=== PATIENT | male | born 1965 | race Caucasian/White ===

== ENCOUNTER 2023-03-19 09:19 | Outpatient (OUT) | payer BC, SELFPAY | END 2023-03-19 09:20 | LOC: LAB 09:21 | PROVIDERS: PCP Family Medicine; Visit Provider Family Medicine | DX: Z00.00 Encounter for general adult medical examination without abnormal findings (principal); Z12.5 Encounter for screening for malignant neoplasm of prostate | CPT/HCPCS: 36415; 80053; 80061; 83036; 83525; 83880; 84436; 84443; 84481; 84550; 85025; G0103 ==

== ENCOUNTER 2023-03-31 13:55 | Outpatient (OUT) | payer BC, SELFPAY ==
[2023-03-19 09:51] LABS: Basophils Absolute Auto 0.1 10^3/uL (0.0-0.1); Basophils Percent Auto 0.8 % (0.2-2.0); Eosinophils Absolute Auto 0.1 10^3/uL (0.0-0.7); Eosinophils Percent Auto 2.1 % (0.9-7.0); Hematocrit 45.1 % (42.0-54.0); Hemoglobin 15.3 g/dL (14.0-18.0); Immature Granulocytes Abs Auto 0.04 10^3/uL (0.00-0.03); Immature Granulocytes Pct Auto 0.6 % (0.0-0.5); Lymphocytes Absolute Auto 1.7 10^3/uL (1.2-3.8); Mean Corpuscular HGB Conc 33.9 g/dL (29.9-35.2); Mean Corpuscular Volume 85.4 fL (80.0-94.0); Monocytes Absolute Auto 0.5 10^3/uL (0.3-0.8); Monocytes Percent Auto 7.9 % (1.7-12.0); Neutrophils Absolute Auto 4.1 10^3/uL (1.4-6.5); Neutrophils Percent Auto 62.6 % (43.0-75.0); Platelet Count 192 10^3/uL (150-450); Red Blood Count 5.28 10^6/uL (4.70-6.10); Red Cell Distribution Width 13.8 % (11.0-15.0); White Blood Count 6.6 10^3/uL (4.0-11.0)
[2023-03-19 11:13] LABS: Prostate Specific Antigen Scrn 0.93 ng/mL (<=4.00)
[2023-03-19 11:53] LABS: Alanine Aminotransferase 35 U/L (16-63); Albumin Level 3.7 g/dL (3.4-5.0); Alkaline Phosphatase 77 U/L (46-116); Anion Gap 11.6; Aspartate Amino Transferase 22 U/L (15-37); BUN Creatinine Ratio 15.7; Calcium 9.1 mg/dL (8.5-10.1); Carbon Dioxide 26.1 mmol/L (21.0-32.0); Chloride 102 mmol/L (98-107); Chol HDL Ratio 4.1; Cholesterol 188 mg/dL (<=200); Estimated GFR (African America >60 (>=60); Estimated GFR (Non-African Ame >60 (>=60); Free T3 2.79 pg/mL (2.18-3.98); Globulin 3.6 g/dL; Glucose 123 mg/dL (74-106); HDL Cholesterol 46 mg/dL (40-60); LDL Cholesterol Calculated 112.2 mg/dL; Potassium 3.7 mmol/L (3.5-5.1); Sodium 136 mmol/L (136-145); Thyroid Stimulating Hormone 0.673 uIU/mL (0.358-3.740); Total Protein 7.3 g/dL (6.4-8.2); Triglycerides 149 mg/dL (<=150); Uric Acid 6.8 mg/dL (3.5-7.2); VLDL CHOLESTEROL 29.8 mg/dL
[2023-03-19 12:43] LABS: Estimated Average Glucose 114 mg/dL; Glycohemoglobin A1C 5.6 % (4.5-6.2)
[2023-03-20 11:08] LABS: Insulin 49.1 uIU/mL (2.6-24.9)
--- NOTE | 2023-03-31 13:59 | VEIN_ITS ---
Patient: TOM ROY Exam Date: 03/31/2023 : 1965 Gender:M Ordering : DR Benjy Sinha . Admission #: [id number] Family : Order #: [id number] CLICK HERE TO VIEW EXAM RADIOLOGY REPORT PROCEDURE: VC EXT VENOUS REFLUX MARIAELENA LMTD COMPARISON: None. INDICATIONS: Pain due to varicose veins of bilateral legs I83.813 TECHNIQUE: Duplex imaging of the lower extremity to assess the deep and superficial venous system for the presence of deep or superficial venous incompetence and to document the location and severity of disease. The study includes evaluation of the great saphenous vein (GSV), anterior accessory saphenous vein (AASV) and small saphenous vein (SSV). Patient scanned in reverse Trendelenburg and standing. FINDINGS: RIGHT LOWER EXTREMITY: Saphenofemoral Junction Reflux: Yes 8.9mm 3.3 sec GSV: Diam (mm) Reflux/ Time (sec) Proximal Thigh 6.8 Yes 1.9 Mid Thigh 6.0 Yes 2.3 Distal Thigh 6.6 Yes 2.1 Prox Calf 7.4 Yes 1.7 Mid Calf 4.0 Yes 0.3 Saphenopopliteal Junction Reflux: 5.6mm Yes 0.5 SSV: Proximal Calf 5.6 Yes 0.5 Mid Calf 5.0 Yes 0.3 AASV: Not present Thrombi: No acute or chronic thrombus. Compressibility: Normal. Flow: Moderate reflux in popliteal vein. Preforator: Distal medial lower leg 4.2 mm, 3.9s reflux. Mid medial lower leg 5.5 mm, 4.8s reflux. Tech Note: Thigh extention of SSV. Incompetent varicose vein proximal medial lower leg measures 5.8 mm with 0.8s reflux. Mid anterior thigh varicose vein measures 3.6 mm with 0.5s reflux. Varicose vein medial knee measures 4.0 mm with 0.9s reflux. LEFT LOWER EXTREMITY: Saphenofemoral Junction Reflux: Yes 11.9 mm 1.6 sec GSV: Diam (mm) Reflux/Time (sec) Proximal Thigh 9.7 Yes 1.3 Mid Thigh 6.1 Yes 2.8 Distal Thigh 6.4 Yes 2.3 Prox Calf 8.3 Yes 1.6 Mid Calf 4.7 Yes 1.7 Saphenopopliteal Junction Relux: 3.7 mm Yes 0.5 SSV: Proximal Calf 3.5 Yes 0.3 Mid Calf 4.7 Yes 0.6 AASV: Not present Thrombi: No acute or chronic thrombus. Compressibility: Normal. Flow: Moderate deep venous reflux. Product Support Specialist: Distal medial lower leg near wound 7.2 mm, 4.4s reflux. Mid medial lower leg 5.2 mm, 0.9s reflux. Tech Note: Thigh extention of left SSV. Incompetent varicose vein mid medial lower leg measures 5.2 mm with 4.5s reflux. Distal medial lower leg varicose vein measures 4.6 mm with 3.6s reflux. Proximal medial lower leg varicose vein measures 6.7 mm with 2.5s reflux. Varicosity distal anterior lower leg measures 3.6 mm with 0.3s reflux. CONCLUSION: 1. Moderate bilateral great saphenous vein venous insufficiency with dilatation and saphenofemoral junction reflux 2. Mild bilateral small saphenous vein venous insufficiency 3. Bilateral incompetent perforating veins 4. Bilateral incompetent varicose veins Dictated by: Demetrio Jj MD on 03/31/2023 at 15:42 Approved by: Demetrio Jj MD on 03/31/2023 at 15:44
== END 2023-03-31 13:56 | disposition home or self-care (01) ==
PROVIDERS: PCP Family Medicine; Visit Provider Family Medicine
DX: I83.813 Varicose veins of bilateral lower extremities with pain (principal)
CPT/HCPCS: 93970

== ENCOUNTER 2023-12-27 13:26 | Outpatient (OUT) | payer BC, SELFPAY ==
--- NOTE | 2023-12-27 | XR_ITS ---
The [address] [address] Patient Name: TOM ROY MRN: [id number] date: 1965 Sex: M Assigned Patient Location: Current Patient Location: Accession/Order Number: [id number] Exam Date: 12/27/2023 13:28 Report Date: 12/28/2023 07:23 At the request of: JES GRIJALVA Procedure: XR ankle LT min 3V PROCEDURE: XR ankle LT min 3V COMPARISON: None. HISTORY: LEFT ANKLE PAIN FINDINGS: BONES:No acute fracture or dislocation. Bulky enthesopathic spurring of the calcaneus at the Achilles and plantar insertions. Degenerative changes with marginal osteophyte formation. No focal lytic or sclerotic changes SOFT TISSUES:Moderate diffuse soft tissue swelling most significant along the medial ankle EFFUSION:None visible. OTHER: Negative. XR/XR ankle LT min 3V IMPRESSION: Soft tissue swelling No acute bony abnormality Electronically authenticated by: SRAVANTHI LR Date: 12/28/2023 07:23
== END 2023-12-27 13:27 | disposition home or self-care (01) ==
LOC: WC 13:26
PROVIDERS: PCP Family Medicine; Visit Provider Physician Assistant
DX: M25.472 Effusion, left ankle (principal); L97.921 Non-pressure chronic ulcer of unspecified part of left lower leg limited to breakdown of skin
CPT/HCPCS: 11042; 73610; G0463

== ENCOUNTER 2024-01-21 12:35 | Outpatient (OUT) | payer BC, SELFPAY ==
--- NOTE | 2024-01-21 13:00 | CA_ITS ---
The 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 - Normal arterial evaluation of the lower extremities without hemodynamic impairment of the B/L lower extremities at rest. (right VAL 1.05, left VAL 1.09) Electronically Signed On 01-21-2024 17:59:50 EDT by RITU MEADE
== END 2024-01-21 12:36 | disposition home or self-care (01) ==
LOC: CARD 12:36
PROVIDERS: PCP Family Medicine; Visit Provider Physician Assistant
DX: R09.89 Other specified symptoms and signs involving the circulatory and respiratory systems (principal)
CPT/HCPCS: 93923

== ENCOUNTER 2024-01-31 15:45 | Outpatient (OUT) | payer BC, SELFPAY | END 2024-01-31 15:46 | disposition home or self-care (01) | LOC: WC 15:45 | PROVIDERS: PCP Family Medicine; Visit Provider Physician Assistant | DX: L97.921 Non-pressure chronic ulcer of unspecified part of left lower leg limited to breakdown of skin (principal) | CPT/HCPCS: G0463 ==

== ENCOUNTER 2024-04-03 01:18 | Emergency (ER) | payer BC, SELFPAY ==
[2024-04-03 01:22] VITALS: BP 149/97; PULSE 113; TEMP 37.6; O2SAT 96; BMI 41.5
--- NOTE | 2024-04-03 01:42 | ED_ITS ---
HPI HPI - General Adult General Chief complaint: Extremity Problem, Nontraumatic Stated complaint: R SUAREZ PAIN/INJURY Time Seen by Provider: 04/03/24 01:33 Source: patient Mode of arrival: walk-in Limitations: no limitations History of Present Illness HPI narrative: struck his right suarez 2 days ago on the tongue of a trailer. next day developed chills and fever. now has pain, redness of the leg and pain in the right groin. No nausea or vomiting Related Data Home Medications ?Medication ?Instructions ?Recorded ?Confirmed apixaban 5 mg tablet (Eliquis) mg 04/03/24 hydrochlorothiazide 25 mg tablet mg 04/03/24 lisinopril 40 mg tablet mg 04/03/24 metoprolol succinate 25 mg mg PO 04/03/24 tablet,extended release 24 hr pramipexole 0.5 mg tablet mg 04/03/24 Allergies Allergy/AdvReac Type Severity Reaction Status Date / Time No Known Drug Allergies Allergy Verified 04/03/24 01:27 Opioid HPI Opioid Management Most Recent Opioid Data: 2 No Data to Display Review of Systems 2 ROS0 Status of ROS 10 or more systems reviewed and unremark able except as noted in history and below Exam Constitutional Vital Signs, click to edit/add: Last Vital Signs Temp 99.6 F 04/03/24 01:22 Pulse 113 H 04/03/24 01:22 Resp 20 04/03/24 01:22 BP 149/97 H 04/03/24 01:22 Pulse Ox 96 04/03/24 01:22 O2 Del Method Room Air 04/03/24 01:22 Common normals: no apparent distress, average body habitus, oriented x3, no limitations, healthy appearing, alert and well nourished [facility] Common normals: normocephalic and head/scalp atraumatic Eye Common normals: EOMs intact bilaterally and conjunctivae normal Respiratory Common normals: normal respiratory effort, no retractions, no use of accessory muscles and clear to auscultation bilaterally Cardio Common normals: regular rate, regular rhythm, S1 normal heart sound and S2 normal heart sound GI Common normals: Normal to inspection, nondistended, normoactive bowel sounds present, soft to palpation and non-tender Other: tenderness right inner thigh Extremity Extremity image (front): 2 1. erythema, mild swelling and tenderness Neuro Common normals: oriented x3, CN's II-XII intact bilaterally and moves all extremities Psych Appearance: grossly normal Course Vital Signs Vital signs: Vital Signs Temperature 99.6 F 04/03/24 01:22 Pulse Rate 113 H 04/03/24 01:22 Respiratory Rate 04/03/24 01:22 Blood Pressure 149/97 H 04/03/24 01:22 Pulse Oximetry 96 04/03/24 01:22 Oxygen Delivery Method Room Air 04/03/24 01:22 Temperature 99.6 F 04/03/24 01:22 Pulse Rate 113 H 04/03/24 01:22 Respiratory Rate 20 04/03/24 01:22 Blood Pressure 149/97 H 04/03/24 01:22 Pulse Oximetry 96 04/03/24 01:22 Oxygen Delivery Method Room Air 04/03/24 01:22 Medical Decision Making MDM Narrative Medical decision making narrative: patient struck his right suarez against the tongue of a trailer a couple of days ago. Presents with redness of his suarez area and soreness in the right groin as well as history of fever and chills. Low grade fever in the ED. Lactic acid neg. Elevated CRP and WBC. Patient treated with IV fluids and Unasyn. resting comfortably in no distress. Discharged with a prescription of Augmentin and advised to be rechecked in a couple of days Lab Data Labs: Lab Results 04/03/24 04/03/24 Range/Units 01:50 02:00 WBC 15.4 H (4.0-11.0) 10^3/uL RBC 5.08 (4.70-6.10) 10^6/uL Hgb 14.9 (14.0-18.0) g/dL Hct 43.8 (42.0-54.0) % MCV 86.2 (80.0-94.0) fL MCH 29.3 (25.9-34.0) pg MCHC 34.0 (29.9-35.2) g/dL RDW 13.6 (11.0-15.0) % Plt Count 164 (150-450) 10^3/uL MPV 9.9 (9.5-13.5) fL Neut % (Auto) 82.8 H (43.0-75.0) % Lymph % (Auto) 8.0 L (20.5-60.0) % Chase % (Auto) 7.5 (1.7-12.0) % Eos % (Auto) 0.5 L (0.9-7.0) % Baso % (Auto) 0.4 (0.2-2.0) % Neut # (Auto) 12.8 H (1.4-6.5) 10^3/uL Lymph # (Auto) 1.2 (1.2-3.8) 10^3/uL Chase # (Auto) 1.2 H (0.3-0.8) 10^3/uL Eos # (Auto) 0.1 (0.0-0.7) 10^3/uL Baso # (Auto) 0.1 (0.0-0.1) 10^3/uL Abs Immat Gran (auto) 0.12 H (0.00-0.03) 10^3/uL Imm/Tot Granulo (auto) 0.8 H (0.0-0.5) % ESR 27 H (<=20) mm/hr Sodium 130 L (136-145) mmol/L Potassium 3.7 (3.5-5.1) mmol/L Chloride 96 L (98-107) mmol/L Carbon Dioxide 26.5 (21.0-32.0) mmol/L Anion Gap 11.2 BUN 21.0 H (7.0-18.0) mg/dL Creatinine 1.32 H (0.70-1.30) mg/dL Est GFR ( Amer) >60 (>=60) Est GFR (Non-Af Amer) 55 L (>=60) BUN/Creatinine Ratio 15.9 Glucose 189 H (74-106) mg/dL Lactate 1.5 (0.4-2.0) mmol/L Calcium 8.9 (8.5-10.1) mg/dL C-Reactive Protein 3.00 H (<=0.50) mg/dL Discharge Plan Discharge Stand Alone Forms: Portal Instructions Chief Complaint: Extremity Problem, Nontraumatic Clinical Impression: Cellulitis Patient Disposition: Home, Self-Care Prescriptions / Home Meds: No Action pramipexole 0.5 mg tablet Hold Instructions: pt states doesn't need hydrochlorothiazide 25 mg tablet metoprolol succinate 25 mg tablet extended release 24 hr PO lisinopril 40 mg tablet Eliquis 5 mg tablet Print Language: Wolof Instructions: Cellulitis (ED) Additional Instructions: follow up with Dr beaver in a couple of days for recheck Referrals: Benjy Beaver MD [Primary Care Provider] - 1 week
--- OUTSIDE RECORDS SUMMARY | 2024-04-03 01:55 | XMS_ITS ---
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 Name Role Phone MD Danielle Hernandez Primary Care Provider [phone] DO Brendon Mcnamara Emergency Provider Danielle Hernandez MD Primary Care Provider [phone] COURTNEY ROSAS Attending Unavailable Danielle Hernandez MD Primary Care Provider [phone] MARY, DR SANTOS Primary Care Unavailable HOY, DR SANTOS Admitting Unavailable HOY, DR SANTOS Attending Unavailable HOY, DR SANTOS Primary Care Unavailable MARKER, DR BHATT Attending Unavailable MARKER, DR BHATT Consulting Unavailable MARKER, DR BHATT Admitting Unavailable Liz Montilla Consulting Unavailable AKOSUAY, DR SANTOS Primary Care Unavailable HOY, DR SANTOS Admitting Unavailable HOY, DR SANTOS Attending Unavailable HOY, DR SANTOS Consulting Unavailable HOY, DR SANTOS Primary Care Unavailable MISC, DR WELCH Attending Unavailable MISC, DR WELCH Consulting Unavailable MISC, DR WELCH Admitting Unavailable HOY, DR SANTOS Consulting Unavailable HOY, DR SANTOS Primary Care Unavailable HOY, DR SANTOS Admitting Unavailable HOY, DR SANTOS Attending Unavailable HOYPEREZDANIELLE M Primary Care Unavailable ROBERT KAHN Attending Unavailable ROBERT KAHN Admitting Unavailable Hoy, Danielle M Primary Care Unavailable Brendon Mcnamara Attending Unavailable Brendon Mcnamara Admitting Unavailable Danielle Hernandez MD Primary Care Provider [phone] JACOB SINGLETON Referring Unavailable HOY, DANIELLE M Primary Care Unavailable HOY, DANIELLE M Primary Care Unavailable ROBERT KAHN Referring Unavailable ROBERT KAHN Attending Unavailable KUSHAL CHRISTIAN Referring Unavailable HOY, DANIELLE M Primary Care Unavailable KUSHAL CHRISTIAN Attending Unavailable AKOSUAYDANIELLE M Primary Care Unavailable KUSHAL CHRISTIAN Referring Unavailable HOYDANIELLE M Primary Care Unavailable ROBERT KAHN Attending Unavailable JACOB SINGLETON Attending Unavailable HOY, DANIELLE M Primary Care Unavailable HOY, DANIELLE M Primary Care Unavailable HOY, DANIELLE M Primary Care Unavailable HOY, DANIELLE M Primary Care Unavailable JACOB SINGLETON Referring Unavailable HOY, DANIELLE M Primary Care Unavailable ROBERT KAHN Referring Unavailable JACOB SINGLETON Referring Unavailable HOY, DANIELLE M Primary Care Unavailable HOY, DANIELLE M Primary Care Unavailable ROBERT KAHN Referring Unavailable JACOB SINGLETON Attending Unavailable HOY, DANIELLE M Primary Care Unavailable ROBERT KAHN Attending Unavailable ROBERT KAHN Referring Unavailable HOY, DANIELLE M Primary Care Unavailable ROBERT KAHN Referring Unavailable Encounters Encounter Date Encounter Type Care Provider Facility Start: 12-15-2022 End: 12-15-2022 ambulatory DANIELLE HERNANDEZ Facility:[facility] Start: 12-15-2022 End: 12-15-2022 Patient encounter procedure Robert Kahn MD Work Phone: Orthopaedics Comment on above: Status post right hi p replacement (Primary Dx) Start: 12-15-2022 End: 12-15-2022 Subsequent hospital visit by physician James Ortho [facility] Work Phone: Radiology Comment on above: Status post right hi p replacement [Z96.641] Start: 11-10-2022 End: 11-10-2022 ambulatory DANIELLE HERNANDEZ Facility:[facility] Start: 11-10-2022 End: 11-10-2022 Subsequent hospital visit by physician Xr Ortho [facility] Work Phone: Radiology Comment on above: Status post right hi p replacement [Z96.641] Start: 11-10-2022 End: 11-10-2022 Patient encounter procedure Robert Kahn MD Work Phone: Orthopaedics Comment on above: Status post right hi p replacement (Primary Dx) Start: 10-09-2022 End: 10-09-2022 ambulatory DANIELLE HERNANDEZ Facility:[facility] Start: 10-09-2022 End: 10-09-2022 Patient encounter procedure Jacob Betty SHAIKH Work Phone: Orthopaedics Comment on above: Status post right hi p replacement (Primary Dx) Start: 10-09-2022 End: 10-09-2022 Subsequent hospital visit by physician James Seay [facility] Work Phone: Radiology Comment on above: Status post right hi p replacement [Z96.641] Start: 09-23-2022 End: 09-24-2022 ambulatory DANIELLE Russell Cyrus Facility:[facility] Start: 09-14-2022 End: 09-14-2022 ambulatory 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 Drew 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 Start: 09-10-2022 Orders Only Jacob Krish lentz PA-C Work Phone: Orthopaedics Comment on above: 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) Patient Question Start: 09-09-2022 Encounter for other preprocedural examination JACOBYUVAL [facility] Start: 09-09-2022 End: 09-09-2022 ambulatory DANIELLE Russell Cyrus Facility:[facility] Start: 09-08-2022 Telephone encounter Robert Horton ra, MD Work Phone: [facility] Comment on above: Appointment Start: 09-01-2022 End: 09-02-[address] DANIELLE HERNANDEZ Facility: Start: 08-31-2022 End: 08-31-2022 ambulatory DANIELLE HERNANDEZ Facility:[facility] Start: 08-25-2022 End: 08-25-2022 ambulatory Jacob Betty SHAIKH Work Phone: Orthopaedics Comment on above: Primary osteoarthrit is of right hip (Primary Dx); History of DVT of lower extremity Start: 08-25-2022 End: 08-25-2022 Telemedicine consultation with patient Jacob Betty SHAIKH Work Phone: [facility] Start: 08-24-2022 Telephone encounter Robert Horton ra, MD Work Phone: Orthopaedics Comment on above: Question Start: 08-12-2022 End: 08-12-2022 ambulatory COURTNEY [facility] Start: 08-12-2022 End: 08-12-2022 Encounter for other preprocedural examination COURTNEY [facility] Start: 07-30-2022 End: 07-30-2022 ambulatory KUSHAL Ori CHRISTIAN Facility:[facility] Start: 07-30-2022 End: 07-30-2022 Patient encounter procedure Robert Kahn MD Work Phone: Orthopaedics Comment on above: Primary osteoarthrit is of right hip (Primary Dx); History of DVT of lower extremity Start: 07-20-2022 End: 07-20-2022 ambulatory Miriam Mendez RT(R) Radiology Comment on above: Radiology XR Start: 07-20-2022 End: 07-20-2022 Patient encounter procedure Miriam Mendez RT(R) ORTH OREN Comment on above: Primary osteoarthrit is of left hip (Primary Dx); Primary osteoarthritis of right hip; History of total left hip replacement Start: 03-24-2022 End: 03-25-[address] DANIELLE HERNANDEZ Facility:[facility] Start: 03-10-[address] DANIELLE HERNANDEZ Facility :[facility] Start: 02-26-2022 End: 02-27-[address] DANIELLE HERNANDEZ Facility:[facility] Start: 02-13-2022 End: 02-14-[address] DANIELLE HERNANDEZ Facility:[facility] Start: 02-12-2022 End: 02-12-2022 Emergency department patient visit Danielle Hernandez Facility:[facility] Start: 02-12-2022 End: 02-12-2022 Emergency department patient visit MD Danielle Hernandez Work Phone: [facility] Medical Equipment Procedure Code Equipment Code Equipment Origin al Text Equipment Identifier Dates Vya-Tv-C-Kind Implant - [id number] Start: 10-21-2015 Comment on above: Description: Active Articulation head Head Y3q-Nhaja Ringloc Standard Offset Cocrmo Femoral Modular 28mm Sterile - [id number] Start: 10-21-2015 Longevity G7 Arc x Ofst Liner 36mm Size H [id number] Start: 09-23-2022 Stem Taperloc 13 3d 13 Pps 34.3mm Femoral Type 1 Taper Complete Reduced - [id number] Start: 09-23-2022 Screw G7 6.5mm Dome 15mm Acetabular Low Profile Hip - [id number] Start: 09-23-2022 Medications Completed/Discontinued Medications Medication Drug Class(es) Dates Sig (Normalized) Sig (Original) acetaminophen 500 mg oral tablet (6 sources) Start: 09-24-20 22 take 2 tablets by mouth every eight hours acetaminophen (TYLENOL) 500 mg tablet Take 2 tablets by mouth every 8 hours. 180 tablet 0 09/24/2022 Active Comment on above: Take 2 tablets by mo [facility] every 8 hours. amLODIPine 5 mg oral tablet (6 sources) Dihydropyridine Calcium Channel Christine Start: 10-14-19 16 take 1 tablet by mouth once daily amLODIPine (NORVASC) 5 mg tablet Take 1 tablet by mouth once daily. 30 tablet 1 10/14/2015 Active Comment on above: Take 1 tablet by tamela once daily. amoxicillin 500 mg oral capsule (5 sources) Penicillin-class Antibacterial Start: 10-09-19 23 amoxicillin (POLYMOX, AMOXIL) 500 mg capsule Take 4 capsules 1 hour prior to dentist 12 capsule 1 10/09/2022 Active Comment on above: Take 4 capsules 1 ho ur prior to dentist apixaban 5 mg oral tablet (3 sources) Factor Xa Inhibitor Start: 09-08-20 22 ELIQUIS 5 mg tab(s) Take by mouth twice daily. 0 09/08/2022 Active Comment on above: Take by mouth twice daily. hydroCHLOROthiazide 25 mg oral tablet (18 sources) Thiazide Diuretic Start: 08-12-20 End: 08-12-20 23 hydroCHLOROthiazide (HYDRODIURIL, ESIDRIX) 25 mg tablet Comment on above: Take 25 mg by mouth once daily. lisinopril 20 mg oral tablet (15 sources) Angiotensin Converting Enzyme Inhibitor Start: 10-14-19 16 take 1 tablet by mouth once daily lisinopril (ZESTRIL, PRINIVIL) 20 mg tablet Take 1 tablet by mouth once daily. 0 10/14/2015 Active Comment on above: Take 1 tablet by tamela once daily. 24 hr metoprolol succinate 25 mg extended release oral tablet (9 sources) beta-Adrenergic Christine Start: 09-08-20 take 1 tablet by mouth once daily metoprolol succinate ER (TOPROL XL) 25 mg 24 hr tablet Take by mouth once daily. 0 09/08/2022 Active Comment on above: Take by mouth once d aily. oxyCODONE hydrochloride 5 mg oral tablet (6 sources) Opioid Agonist Start: 09-24-20 take 1 tablet by mouth every four to six hours as needed oxyCODONE IR (ROXICODONE) 5 mg immediate release tablet Indications: Post-operative pain Take 1-2 tablets by mouth every 4-6 hours as needed for pain 50 tablet 0 09/24/2022 Active Comment on above: Take 1-2 tablets by mouth every 4-6 hours as needed for pain Payers Date Payer Category Payer Self-pay [id number] 2017 Unknown [id number] 1965 Unknown [id number] 2.16.84 [id number] 1965 Unknown [id number] 2.16.84 [id number] 1965 Unknown [id number] 2.16.84 [id number] 1965 Unknown [id number] 2.16.84 [id number] 1965 Unknown [id number] 2.16.84 [id number] 1961 Unknown [id number] Unknown [id number] Unknown [id number] 2.16.8 [id number] Plan of Treatment Date Care Activity Detail Author Start: 05-03-2031 Urine microalbumin profile DTaP,Tdap,Td Vaccine (2 - Tdap) [facility] Start: 09-24-2025 DIABETES SCREEN DIABETES SCREEN [facility] Start: 09-24-2025 Diabetes Screening Diabetes Screenin g [facility] Start: 09-09-2025 DIABETES SCREEN DIABETES SCREEN [facility] Start: 2023 RSV Vaccine (1 - 1-d ose 60+ series) RSV Vaccine (1 - 1-dose 60+ series) [facility] Start: 06-04-2023 Covid-19 Vaccine ( season) Covid-19 Vaccine () [facility] Start: 06-04-2023 Influenza vaccination Influenza Vacc ine (#1) [facility] Start: 10-04-2022 DEPRESSION ASSESSMENT DEPRESSION ASS ESSMENT [facility] Start: 07-30-2022 End: 09-29-2022 Albumin [Mass/volume] in Serum or Plasma ALBUMIN BLD Lab Routine Primary osteoarthritis of right hip Expected: 07/30/2022, Expires: 09/29/2022 [facility] Work Phone: Comment on above: Expected: 07/30/2022 , Expires: 09/29/2022 Start: 07-30-2022 End: 09-29-2022 CBC W Auto Differential panel - Blood CBC + DIFF Lab Routine Primary osteoarthritis of right hip Expected: 07/30/2022, Expires: 09/29/2022 [facility] Work Phone: Comment on above: Expected: 07/30/2022 , Expires: 09/29/2022 Start: 07-30-2022 End: 09-29-2022 Comprehensive metabolic 2000 panel - Serum or Plasma COMP METABOLIC PANEL Lab Routine Primary osteoarthritis of right hip Expected: 07/30/2022, Expires: 09/29/2022 [facility] Work Phone: Comment on above: Expected: 07/30/2022 , Expires: 09/29/2022 Start: 07-30-2022 End: 09-29-2022 CONFIRM BLOOD TYPE CONFIRM BLOOD TYPE Blood Bank Routine Primary osteoarthritis of right hip Expected: 07/30/2022, Expires: 09/29/2022 [facility] Work Phone: Comment on above: Expected: 07/30/2022 , Expires: 09/29/2022 Start: 07-30-2022 End: 09-29-2022 TYPE AND SCREEN,30 DAY TYPE AND SCREEN,30 DAY Blood Bank Routine Primary osteoarthritis of right hip Expected: 07/30/2022, Expires: 09/29/2022 [facility] Work Phone: Comment on above: Expected: 07/30/2022 , Expires: 09/29/2022 Start: 06-04-2022 Influenza vaccination INFLUENZA (#1) [facility] Start: 12-01-2021 COVID-19 VACCINE (4 - Booster for Pfizer series) COVID-19 VACCINE (4 - Booster for Pfizer series) [facility] Start: 10-04-2021 DEPRESSION ASSESSMENT DEPRESSION ASS ESSMENT [facility] Start: 10-22-2018 DIABETES SCREEN DIABETES SCREEN [facility] Start: 2018 PROSTATE CANCER SCREENING DISCUSSION PROSTATE CANCER SCREENING DISCUSSION [facility] Start: 2013 SHINGRIX VACCINE (1 of 2) SHINGRIX VACCINE (1 of 2) [facility] Start: 2008 COLOGUARD (FIT-DNA) COLOGUARD (FIT-D NA) [facility] Start: 2008 Colonoscopy COLONOSCOPY [facility] Start: 2008 COLORECTAL CANCER SCREENING COLORECTAL CANCER SCREENING [facility] Start: [address] COLONOGRAPHY [facility] Start: 2008 FECAL OCCULT BLOOD FECAL OCCULT BLOO D [facility] Start: 2008 SIGMOIDOSCOPY SIGMOIDOSCOPY [facility] Start: 1998 Lipid 1996 panel - Serum or Plasma Lipid Screening [facility] Start: 1998 LIPID SCREEN LIPID SCREEN [facility] Start: 1982 Urine microalbumin profile DTAP,TDAP,TD (1 - Tdap) [facility] Start: 1981 ANNUAL PCP TEAM PLOW MECHANIC SHARON DISEASE VISIT ANNUAL PCP TEAM CHRONIC DISEASE VISIT [facility] Start: 1981 BP CONTROLLED (<130/80) BP CONTROLLE D (<130/80) [facility] Start: 1981 HEPATITIS C SCREENING HEPATITIS C SC REEVEDA [facility] Start: 1981 HIV SCREENING HIV SCREENING [facility] Start: 1963 HEPATITIS B (1 of 3 - 3-dose series) HEPATITIS B (1 of 3 - 3-dose series) [facility] Patient Education Dehydration, Adult (DC) [facility] Work Phone: Patient referral [facility] Work Phone: End: 08-14-2023 XR HIP GENERAL 3V PELV/AP/LAT RIGHT XR HIP GENERAL 3V PELV/AP/LAT RIGHT Radiology Routine Primary osteoarthritis of right hip 1 Occurrences starting 07/15/2022 until 08/14/2023 [facility] Work Phone: Comment on above: 1 Occurrences starti ng 07/15/2022 until 08/14/2023 [facility] Problems Active Problems Problem Classification Problem Date Documented Da te Episodic/Chronic Conditions associated with dizziness or vertigo (1 source) Lightheadedness; Translations: [Dizziness and giddiness] 02-12-2022 Episodic Conditions associated with dizziness or vertigo (1 source) Conditions associated with dizziness or vertigo; Translations: [R42 - Dizziness and giddiness] Onset: 02-12-2022 Congestive heart failure; nonhypertensive (1 source) Unspecified diastolic (congestive) heart failure; Translations: [UNSPECIFIED DIASTOLIC HEART FAILURE] Onset: 02-18-2022 Chronic Essential hypertension (18 sources) Hypertensive disorder; Translations: [Essential (primary) hypertension] Onset: 03-26-2022 10-21-2015 Chronic Headache; including migraine (4 sources) Migraine, unspecified, not intractable, without status migrainosus; Translations: [MIGRAINE UNS NOT INTRACT W/O SM] Onset: 02-26-2022 Chronic Osteoarthritis (20 sources) Osteoarthritis of left hip joint; Translations: [Unilateral primary osteoarthritis, left hip] Onset: 10-21-2015 10-21-2015 Chronic Other connective tissue disease (16 sources) History of total hip arthroplasty; Translations: [Presence of unspecified artificial hip joint] Onset: 12-04-2015 12-04-2015 Chronic Other connective tissue disease (20 sources) History of repair of hip joint; Translations: [Presence of unspecified artificial hip joint] Onset: 01-22-2016 01-22-2016 Chronic Other connective tissue disease (1 source) History of total replacement of left hip joint; Translations: [Presence of left artificial hip joint] Chronic Other connective tissue disease (1 source) Presence of right artificial hip joint; Translations: [Status post right hip replacement] Onset: 01-22-2016 Chronic Other nervous system disorders (1 source) Other acute postprocedural pain; Translations: [Post-operative pain] Onset: 09-23-2022 Episodic Other nutritional; endocrine; and metabolic disorders (9 sources) Obesity; Translations: [Obesity, unspecified] Onset: 09-09-2022 09-09-2022 Chronic Other nutritional; endocrine; and metabolic disorders (6 sources) Body mass index 40+ - severely obese; Translations: [Morbid (severe) obesity due to excess calories] Onset: 09-23-2022 09-23-2022 Chronic Spondylosis; intervertebral disc disorders; other back problems (1 source) Other intervertebral disc degeneration, thoracolumbar region; Translations: [OTH IV DISC DEGEN THORACOLUMBAR RGN] Onset: 03-26-2022 Chronic Past or Other Problems Problem Classification Problem Date Documented Da te Episodic/Chronic Abdominal pain (4 sources) Unspecified abdominal pain; Translations: [UNSPECIFIED ABDOMINAL PAIN] Onset: 03-24-2022 Episodic Other aftercare (1 source) 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; 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] Onset: 03-26-2022 Episodic Other aftercare (1 source) Other senior living (current) drug therapy; Translations: [OTH 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 CURRENT DRUG THERAPY] Onset: 03-26-2022 Episodic Other aftercare (9 sources) Drug therapy finding; Translations: [half-way (current) use of anticoagulants] Onset: 09-09-2022 09-09-2022 Episodic Other gastrointestinal disorders (1 source) Other specified diseases of intestine; Translations: [OTHER SPECIFIED DISEASES INTESTINE] Onset: 03-26-2022 Episodic Phlebitis; thrombophlebitis and thromboembolism (12 sources) H/O: Deep vein thrombosis; Translations: [Personal history of other venous thrombosis and embolism] Onset: 03-26-2022 Episodic Pulmonary heart disease (1 source) Personal history of pulmonary embolism; Translations: [PERSONAL HISTORY PULMONARY EMBOLISM] Onset: 03-26-2022 Episodic Residual codes; unclassified (1 source) Pain, unspecified; Translations: [Pain] Onset: 07-20-2022 Episodic Syncope (4 sources) Syncope and collapse; Translations: [SYNCOPE AND COLLAPSE] Onset: 02-13-2022 Episodic Procedures Date Procedure Procedure Detail Performing Clinician Start: 12-15-2022 Radex hip unilateral with pelvis 2-3 views Jacob MARTINEZ-C Work Phone: Start: 11-10-2022 Radex hip unilateral with pelvis 2-3 views Robert Kahn MD Work Phone: Start: 10-09-2022 Radex hip unilateral with pelvis 2-3 views Jacob MARTINEZ-C Work Phone: Start: 09-09-2022 Antibody screen JACOB SINGLETON Comment on above: Order Comment: Speci men Type: BLOOD SPECIMENOrdering Facility: [facility] Address: [address] [place] [address] Performed By: #### T [id number] ####CC MAIN BLOOD BANKCLIA [id number] [address] [place] Start: 07-30-2022 Iadna s aureus ampli fied probe tq Jacob MARTINEZ-C Work Phone: Start: 02-12-2022 CT of chest MD Danielle Hernandez Work Phone: Results Test Name Value Interpretation Reference Range Facility CNOVon 12-15-2022 CNOV Office Visit (ORAVON ) GUY HOLLOWAY ([id number]) 1965 M Date Time Provider Department 3/14/23 2:30 PM ROBERT KAHN During your visit today, we recorded the following information about you: Robert Kahn MD 12/15/2022 3:42 PM Signed CC: SP Right KARTHIK Concerns: none intends to RTW PE: Hip wound clean dry and intact No erythema drainage or fluctiance DF PF EHL intact Dp2+ No edema Calf nontender ROM 0 to 110 degrees Imaging: iw satisfactory AP: SP Right KARTHIK neuro vasc intact 1) WBAT 2) DVT prophy complete 3) PT 4) FU 52 weeks 5) Medication changes aware of dental prophy Referring Provider: ROBERT KAHN [[id number]] Allergies As of Date: 12/15/2022 (No Known Allergies) Date Reviewed: 12/15/2022 Reviewed by: Connie Bennett MA - Fully Assessed Reason for Visit: Post Op [174] Primary Visit Diagnosis:Status post right hip replacement [Z96.641] Order(s):XR HIP GENERAL 3V PELV/AP/LAT RIGHT [[id number]] Order #: [id number] FUTURE Prescriptions as of 12/15/2022 - amoxicillin (POLYMOX, AMOXIL) 500 mg capsule Take 4 capsules 1 hour prior to dentist - oxyCODONE IR (ROXICODONE) 5 mg immediate release tablet Take 1-2 tablets by mouth every 4-6 hours as needed for pain - acetaminophen (TYLENOL) 500 mg tablet Take 2 tablets by mouth every 8 hours. - hydroCHLOROthiazide (HYDRODIURIL, ESIDRIX) 25 mg tablet Take 25 mg by mouth once daily. - metoprolol succinate ER (TOPROL XL) 25 mg 24 hr tablet Take by mouth once daily. - hydroCHLOROthiazide (HYDRODIURIL, ESIDRIX) 25 mg tablet - lisinopril (ZESTRIL, PRINIVIL) 20 mg tablet Take 1 tablet by mouth once daily. Problem List As Of Date 12/15/2022 Noted Resolved Hypertension [I10] Primary osteoarthritis of left hip [M16.12] 10/21/2015 History of total hip replacement [Z96.649] 12/04/2015 S/P hip replacement [Z96.649] 01/22/2016 History of DVT (deep vein thrombosis) [Z86.718] 09/09/2022 Anticoagulated [Z79.01] 09/09/2022 Obesity [E66.9] 09/09/2022 Obesity, Class III, BMI >= 40 [E66.01] 09/23/2022 Letter Text Encounter Status:Closed by ROBERT KAHN on 12/15/22 [facility] No Panel Informationon 12-15 [facility] XR HIP 3V PELV+ AP/LAT RTon 12-15-2022 XR HIP 3V PELV+ AP/LAT RT * * *Final Report* * * DATE OF EXAM: Dec 15 2022 1:58PM AFR [id number] - XR HIP 3V PELV+ AP/LAT RT / PROCEDURE REASON: Status post right hip replacement * * * * Physician Interpretation * * * * HISTORY: Status post right hip replacement . TECHNIQUE: XR HIP 3V PELV+ AP/LAT RT Laterality: RIGHT Number of different views (projections): 3 COMPARISON: Radiographs dated 11/10/2022 RESULT: Right total hip arthroplasty in place with no evidence of hardware failure or loosening. There is partial visualization of the left total hip arthroplasty. There is no acute fracture or dislocation. There are degenerative changes at the bilateral sacroiliac joints and pubic symphysis. No other significant abnormality. - IMPRESSION: Right total hip arthroplasty in place with no evidence of complications. Grade Teacher: PSCB Transcribe Date/Time: Dec 15 2022 2:03P Dictated by : RACHEL NICHOLE MD This examination was interpreted and the report reviewed and electronically signed by: RACHEL NICHOLE MD on Dec 15 2022 2:04PM EST [id number] [facility] CNOVon 11-10-2022 CNOV Office Visit (ORAVON ) GUY HOLLOWAY ([id number]) 1965 M Date Time Provider Department 11/10/22 2:15 PM ROBERT KAHN During your visit today, we recorded the following information about you: Robert Kahn MD 11/10/2022 3:39 PM Signed CC: SP Right KARTHIK Concerns: feels an impulse or click when walking PE: Hip wound clean dry and intact No erythema drainage or fluctiance DF PF EHL intact Dp2+ No edema Calf nontender ROM 0 to 100 degrees Imaging: is satisfactory AP: SP Right KARTHIK neuro vasc intact 1) WBAT 2) DVT prophy complete 3) PT 4) FU 4-5 weeks 5) Medication changes none Discussed that this appears to be bursitis The impulse over the gr troch is palpable can consider CSI at month 3. Referring Provider: ROBERT KAHN [[id number]] Allergies As of Date: 11/10/2022 (No Known Allergies) Date Reviewed: 11/10/2022 Reviewed by: Connie Bennett MA - Fully Assessed Reason for Visit: Post Op [174] Primary Visit Diagnosis:Status post right hip replacement [Z96.641] Order(s):XR HIP GENERAL 3V PELV/AP/LAT RIGHT [[id number]] Order #: [id number] FUTURE Prescriptions as of 11/10/2022 - amoxicillin (POLYMOX, AMOXIL) 500 mg capsule Take 4 capsules 1 hour prior to dentist - oxyCODONE IR (ROXICODONE) 5 mg immediate release tablet Take 1-2 tablets by mouth every 4-6 hours as needed for pain - acetaminophen (TYLENOL) 500 mg tablet Take 2 tablets by mouth every 8 hours. - hydroCHLOROthiazide (HYDRODIURIL, ESIDRIX) 25 mg tablet Take 25 mg by mouth once daily. - metoprolol succinate ER (TOPROL XL) 25 mg 24 hr tablet Take by mouth once daily. - hydroCHLOROthiazide (HYDRODIURIL, ESIDRIX) 25 mg tablet - lisinopril (ZESTRIL, PRINIVIL) 20 mg tablet Take 1 tablet by mouth once daily. Problem List As Of Date 11/10/2022 Noted Resolved Hypertension [I10] Primary osteoarthritis of left hip [M16.12] 10/21/2015 History of total hip replacement [Z96.649] 12/04/2015 S/P hip replacement [Z96.649] 01/22/2016 History of DVT (deep vein thrombosis) [Z86.718] 09/09/2022 Anticoagulated [Z79.01] 09/09/2022 Obesity [E66.9] 09/09/2022 Obesity, Class III, BMI >= 40 [E66.01] 09/23/2022 Encounter Status:Closed by ROBERT KAHN on 11/10/22 [facility] No Panel Informationon 11-10 [facility] XR HIP 3V PELV+ AP/LAT RTon 11-10-2022 XR HIP 3V PELV+ AP/LAT RT * * *Final Report* * * DATE OF EXAM: Nov 10 2022 3:13PM AFR 5352 - XR HIP 3V PELV+ AP/LAT RT / PROCEDURE REASON: Status post right hip replacement * * * * Physician Interpretation * * * * HISTORY: Status post right hip replacement . TECHNIQUE: XR HIP 3V PELV+ AP/LAT RT Laterality: RIGHT Number of different views (projections): 3 COMPARISON: Radiographs dated 10/09/2022 RESULT: Right total hip arthroplasty in place with intact hardware. There is incomplete evaluation of the left total hip arthroplasty. There is no acute fracture or dislocation. There are degenerative changes at the bilateral sacroiliac joints and pubic symphysis. There is soft tissue swelling on the right. No other significant abnormality. - IMPRESSION: Right total hip arthroplasty in place with intact hardware. Grade Teacher: PSCB Transcribe Date/Time: Nov 10 2022 3:49P Dictated by : RACHEL NICHOLE MD This examination was interpreted and the report reviewed and electronically signed by: RACHEL NICHOLE MD on Nov 10 2022 3:52PM EST [id number] [facility] CNOVon 10-09-2022 CNOV Office Visit (ORAVON ) GUY HOLLOWAY ([id number]) 1965 M Date Time Provider Department 10/09/22 9:45 AM JACOB SINGLETON During your visit today, we recorded the following information about you: Jacob Singleton PA-C 10/09/2022 10:44 AM Signed CC: SP Right KARTHIK Concerns: none PE: Hip wound clean dry and intact No erythema drainage or fluctuance DF PF EHL intact Dp2+ No edema Calf nontender ROM 0 to 90 degrees Imaging: is satisfactory AP: SP Right KARTHIK neuro vasc intact 1) WBAT 2) DVT prophy Eliquis 5mg BID 3) Continue home PT, starting outpatient PT soon. PT order sent with patient 4) FU 4 weeks 5) discussed dental antibiotic prophy, prescription sent to pharmacy Jacob Singleton PA-C Referring Provider: ROBERT KAHN [[id number]] Allergies As of Date: 10/09/2022 (No Known Allergies) Date Reviewed: 10/09/2022 Reviewed by: Connie Bennett MA - Fully Assessed Reason for Visit: Post Op [174] Primary Visit Diagnosis:Status post right hip replacement [Z96.641] Order(s):XR HIP GENERAL 3V PELV/AP/LAT RIGHT [[id number]] Order #: [id number] FUTURE amoxicillin (POLYMOX, AMOXIL) 500 mg capsuleTake 4 capsules 1 hour prior to dentistDisp: 12 capsuleRfl: 1 Prescriptions as of 10/09/2022 - amoxicillin (POLYMOX, AMOXIL) 500 mg capsule Take 4 capsules 1 hour prior to dentist - oxyCODONE IR (ROXICODONE) 5 mg immediate release tablet Take 1-2 tablets by mouth every 4-6 hours as needed for pain - acetaminophen (TYLENOL) 500 mg tablet Take 2 tablets by mouth every 8 hours. - hydroCHLOROthiazide (HYDRODIURIL, ESIDRIX) 25 mg tablet Take 25 mg by mouth once daily. - metoprolol succinate ER (TOPROL XL) 25 mg 24 hr tablet Take by mouth once daily. - hydroCHLOROthiazide (HYDRODIURIL, ESIDRIX) 25 mg tablet - lisinopril (ZESTRIL, PRINIVIL) 20 mg tablet Take 1 tablet by mouth once daily. Problem List As Of Date 10/09/2022 Noted Resolved Hypertension [I10] Primary osteoarthritis of left hip [M16.12] 10/21/2015 History of total hip replacement [Z96.649] 12/04/2015 S/P hip replacement [Z96.649] 01/22/2016 History of DVT (deep vein thrombosis) [Z86.718] 09/09/2022 Anticoagulated [Z79.01] 09/09/2022 Obesity [E66.9] 09/09/2022 Obesity, Class III, BMI >= 40 [E66.01] 09/23/2022 Prescriptions ordered this encounter Disp Refills Start End AMOXICILLIN 500 MG CAPSULE 12 c* 1 10/09/2022 Sig: Take 4 capsules 1 hour prior to dentist Encounter Status:Closed by JACOB SINGLETON on 10/09/22 [facility] No Panel Informationon 10-09 [facility] XR HIP 3V PELV+ AP/LAT RTon 10-09-2022 XR HIP 3V PELV+ AP/LAT RT * * *Final Report* * * DATE OF EXAM: Oct 09 2022 9:54AM AFR 5352 - XR HIP 3V PELV+ AP/LAT RT / PROCEDURE REASON: Status post right hip replacement * * * * Physician Interpretation * * * * HISTORY: Status post right hip replacement . TECHNIQUE: XR HIP 3V PELV+ AP/LAT RT Laterality: RIGHT Number of different views (projections): 3 COMPARISON: Radiograph dated 09/23/2022 RESULT: Right total hip arthroplasty in place with intact hardware. There is partial visualization of the left total hip arthroplasty. There is no acute fracture or dislocation. There are degenerative changes at the bilateral sacral iliac joints and pubic symphysis. There has been resolution of the soft tissue gas and improvement in the soft tissue swelling on the right. No other significant abnormality. - IMPRESSION: Right total hip arthroplasty in place with intact hardware. Grade Teacher: RONNELL Transcribe Date/Time: Oct 09 2022 10:17A Dictated by : RACHEL NICHOLE MD This examination was interpreted and the report reviewed and electronically signed by: RACHEL NICHOLE MD on Oct 09 2022 10:18AM EST [id number] [facility] Basic metabolic 2000 panelon 09-24-2022 Anion gap [Moles/Vol] 9 mmol/L Normal 9-18 [facility] Comment on above: Order Comment: Speci men Type: BLOOD SPECIMENOrdering Facility: [facility] Address: [address] [place] [address] Performed By: #### 2 4321-2 ####[facility] [id number] [place] [address] [place] Calcium [Mass/Vol] 8.7 mg/dL Normal 8.5-10.2 [facility] Comment on above: Order Comment: Speci men Type: BLOOD SPECIMENOrdering Facility: [facility] Address: [address] [place] [address] Performed By: #### 2 4321-2 ####[facility] [id number] [place] [address] [place] Chloride [Moles/Vol] 101 mmol/L Normal 97-105 [facility] Comment on above: Order Comment: Speci men Type: BLOOD SPECIMENOrdering Facility: [facility] Address: [address] [address] Performed By: #### 2 4321-2 ####[facility] [id number] [place] [address] [place] CO2 [Moles/Vol] 27 mmol/L Normal 22-30 [facility] Comment on above: Order Comment: Speci men Type: BLOOD SPECIMENOrdering Facility: [facility] Address: [address] Performed By: #### 2 4321-2 ####[facility] [id number] [place] [address] [place] Creatinine [Mass/Vol] 0.95 mg/dL Normal 0.73-1.22 [facility] Comment on above: Order Comment: Speci men Type: BLOOD SPECIMENOrdering Facility: [facility] Address: [address] [address] Performed By: #### 2 4321-2 ####[facility] [id number] [place] [address] [facility] ESTIMATED GLOMERULAR FILTRATION RATE 92 mL/min/1.73m??? Normal >=60 [facility] Comment on above: Order Comment: Speci men Type: BLOOD SPECIMENOrdering Facility: [facility] Address: [address] [address] Result Comment: Judy mated Glomerular Filtration Rate (eGFR) is calculated using the 2020 CKD-EPI creatinine equation. This equation utilizes serum creatinine, sex, and age as parameters. The creatinine assay has traceable calibration to isotope dilution-mass spectrometry. Refer to KDIGO guidelines for clinical interpretation. In patients with unstable renal function, e.g. those with acute kidney injury, the eGFR may not accurately reflect actual GFR. Performed By: #### 2 4321-2 ####[facility] [id number] [place] [address] [place] Glucose [Mass/Vol] 115 mg/dL High 74-99 [facility] Comment on above: Order Comment: Speci men Type: BLOOD SPECIMENOrdering Facility: [facility] Address: [address] [address] Result Comment: The [place] [employer] (ADA) provides guidance for cutoff values for fasting glucose and random glucose. The ADA defines fasting as no caloric intake for at least 8 hours. Fasting plasma glucose results between 100 to 125 mg/dL indicate increased risk for diabetes (prediabetes). Fasting plasma glucose results greater than or equal to 126 mg/dL meet the criteria for diagnosis of diabetes. In the absence of unequivocal hyperglycemia, results should be confirmed by repeat testing. In a patient with classic symptoms of hyperglycemia or hyperglycemic crisis, random plasma glucose results greater than or equal to 200 mg/dL meet the criteria for diagnosis of diabetes. Reference: Standards of Medical Care in Diabetes 2016, [place] [employer] Association. Diabetes Care. 2016.39(Suppl 1). Performed By: #### 2 4321-2 ####[facility] [id number] [place] [address] [place] Potassium [Moles/Vol] 4.0 mmol/L Normal 3.7-5.1 [facility] Comment on above: Order Comment: Speci men Type: BLOOD SPECIMENOrdering Facility: [facility] Address: [address] [place] [address] Performed By: #### 2 4321-2 ####[facility] [id number] [address] [place] Sodium [Moles/Vol] 137 mmol/L Normal 136-144 [facility] Comment on above: Order Comment: Cecilioi men Type: BLOOD SPECIMENOrdering Facility: [facility] Address: [address] [place] [address] Performed By: #### 2 4321-2 ####[facility] [id number] [place] [id number] [place] Urea nitrogen [Mass/Vol] 15 mg/dL Normal 9-24 [facility] Comment on above: Order Comment: Speci men Type: BLOOD SPECIMENOrdering Facility: [facility] Address: [address] [place] [address] Performed By: #### 2 4321-2 ####[facility] [id number] [place] [id number] [place] CBC panel Auto (Bld)on 09-24 Erythrocyte distribution width (RBC) [Ratio] 13.5 % Normal 11.5-15.0 [facility] Comment on above: Order Comment: Speci men Type: BLOOD SPECIMENOrdering Facility: [facility] Address: [address] [address] Performed By: #### 5 8410-2 ####[facility] [id number] [address] [place] Hematocrit (Bld) [Volume fraction] 40.1 % Normal 39.0-51.0 [facility] Comment on above: Order Comment: Speci men Type: BLOOD SPECIMENOrdering Facility: [facility] Address: [address] [address] Performed By: #### 5 8410-2 ####[facility] [id number] [place] [address] [place] Hemoglobin (Bld) [Mass/Vol] 13.5 g/dL Normal 13.0-17.0 [facility] Comment on above: Order Comment: Speci men Type: BLOOD SPECIMENOrdering Facility: [facility] Address: [address] [address] Performed By: #### 5 8410-2 ####[facility] [id number] [place] [address] [place] MCH (RBC) [Entitic mass] 28.7 pg Normal 26.0-34.0 [facility] Comment on above: Order Comment: Speci men Type: BLOOD SPECIMENOrdering Facility: [facility] Address: [address] [place] [address] Performed By: #### 5 8410-2 ####[facility] [id number] [place] [address] [place] MCHC (RBC) [Mass/Vol] 33.7 g/dL Normal 30.5-36.0 [facility] Comment on above: Order Comment: Speci men Type: BLOOD SPECIMENOrdering Facility: [facility] Address: [address] [place] [address] Performed By: #### 5 8410-2 ####[facility] [id number] [place] [address] [place] MCV (RBC) [Entitic vol] 85.3 fL Normal 80.0-100.0 [facility] Comment on above: Order Comment: Speci men Type: BLOOD SPECIMENOrdering Facility: [facility] Address: [address] Performed By: #### 5 8410-2 ####[facility] [id number] [place] [address] [place] Nucleated RBC (Bld) [#/Vol] 10*3/uL Normal <0.01 [facility] Comment on above: Order Comment: Speci men Type: BLOOD SPECIMENOrdering Facility: [facility] Address: [address] Performed By: #### 5 8410-2 ####[facility] [id number] [place] [address] [place] Platelet mean volume (Bld) [Entitic vol] 10.2 fL Normal 9.0-12.7 [facility] Comment on above: Order Comment: Speci men Type: BLOOD SPECIMENOrdering Facility: [facility] Address: [address] Performed By: #### 5 8410-2 ####[facility] [id number] [place] [id number] [place] Platelets (Bld) [#/Vol] 186 10*3/uL Normal 150-400 [facility] Comment on above: Order Comment: Speci men Type: BLOOD SPECIMENOrdering Facility: [facility] Address: [address] Performed By: #### 5 8410-2 ####[facility] [id number] [place] [address] [place] RBC (Bld) [#/Vol] 4.70 10*6/uL Normal 4.20-6.00 [facility] Comment on above: Order Comment: Speci men Type: BLOOD SPECIMENOrdering Facility: [facility] Address: [address] Performed By: #### 5 8410-2 ####[facility]ORY[facility] [id number] [place] [address] [place] WBC (Bld) [#/Vol] 11.78 10*3/uL High 3.70-11.00 [facility] Comment on above: Order Comment: Speci men Type: BLOOD SPECIMENOrdering Facility: [facility] Address: [address] [place] [address] Performed By: #### 5 8410-2 ####[facility]ORY[facility] [id number] [place] [address] [facility] CNDSon 09-24-2022 CNDS HNO ID: [id number] Author: Itzel Berry PA-C Service: Orthopaedic Surgery Author Type: Physician Hospital Pharmacist Type: Discharge Summary Filed: 09/24/2022 11:49 AM Note Text: Attestation signed by Robert Kahn MD at 09/24/2022 3:33 PM Attending Note I have personally performed a face to face assessment of the patient and have reviewed the FLOR note. I performed a substantive portion of the visit including all aspects of the following. My barnett findings include: Exam is dressing CDI DF PF EHL intact DP2+ No edema Other additions or changes: None Signature: Robert Kahn MD Date: 09/24/2022 Time: 3:33 PM DISCHARGE SUMMARY Patient Name: Guy Holloway : 1965 ADMISSION DATE: 09/23/2022 DISCHARGE DATE: 09/24/2022 Attending Physician: Robert Kahn MD Primary Diagnosis: Primary osteoarthritis of right hip [M16.11] Operations During Hospitalization: Procedure(s) (LRB): ARTHROPLASTY HIP BIOMET TAPER LOC (Right) Procedures During Hospitalization: No procedures performed Hospital Course: Guy is a 57 year old male complaining of right Hip pain not responsive to a comprehensive course of conservative treatment. Right hip total arthroplasty was proposed and the patient wishes to proceed and was medically cleared prior to the procedure. Patient underwent a Right hip total arthroplasty and was transferred to the PACU in stable condition, He was then admitted to the hospital. Post operatively He did well. Post-operative HgB was stable and within acceptable range and remained there throughout the hospital stay not requiring transfusion. Wound was without sign of infection. He was able to actively participate in a physical and occupational therapy program for gait training and mobilization. Due to the operative findings and procedure performed which is consistent with a major orthopedic procedure, the postoperative analgesia will exceed the allowable morphine equivalent dose. PHYSICAL EXAM: Right Lower Extremity: Dorsalis pedis pulses palpable. Posterior tibial pulses palpable. Dorsi flexion 5/5. Plantar flexion 5/5. Extensor hallucis extension: 5/5. Sensory intact to light touch L1-S1. Dressing clean, dry, intact, and rosalind bandage removed aquacel intact. Surgical site no drainage and Aquacell intact. Patient Condition at Discharge: Stable Discharge Disposition: Home with Home PT DISCHARGE MEDICATION: Current Discharge Medication List START taking these medications oxyCODONE IR (ROXICODONE) 5 mg immediate release tablet Take 1-2 tablets by mouth every 4-6 hours as needed for pain Qty: 50 tablet Refills: 0 Associated Diagnoses:Post-operati ve pain docusate sodium (COLACE) 100 mg Take 100 mg by mouth twice daily. Qty: 14 capsule Refills: 0 acetaminophen (TYLENOL) 1,000 mg Take 1,000 mg by mouth every 8 hours. Qty: 180 tablet Refills: 0 CONTINUE these medications which have CHANGED apixaban (ELIQUIS) 2.5 mg Take 2.5 mg by mouth twice daily. class= HTML_HHS > After 5 days resume your regular home does of 5mg twice daily. Qty: 10 tablet Refills: 0 CONTINUE these medications which have NOT CHANGED !! hydroCHLOROthiazide (HYDRODIURIL, ESIDRIX) 25 mg Take 25 mg by mouth once daily. metoprolol succinate ER (TOPROL XL) 25 mg 24 hr tablet Take by mouth once daily. !! hydroCHLOROthiazide (HYDRODIURIL, ESIDRIX) 25 mg tablet lisinopril (ZESTRIL, PRINIVIL) 20 mg Take 20 mg by mouth once daily. Refills: 0 !! - Potential duplicate medications found. Please discuss with provider. Future Appointments: Appointments for Next 60 Days Date Time Provider Location Dept Phone 10/09/2022 8:00 AM JACOB SINGLETON [facility] [phone] 11/06/2022 2:15 PM ROBERT KAHN [facility] [phone] Plan discussed with attending Orthopaedic surgeon Dr. Kahn , will addend as needed. I spent 35 minutes in the visit, with more than 50% of the total ashj-nt-qkep time of the visit in counseling / coordination of care. SIGNATURE: Itzel Berry PA-C PATIENT NAME: Guy Holloway DATE: 09/24/22 TIME: 9:21 AM Normal [facility] THERAPY NTon 09-24-2022 THERAPY NT HNO ID: [id number] Author: Talia Lee, PT, DPT Service: Physical Therapy Author Type: Physical Therapist Type: Therapy (PT/OT/Speech/Resp) Filed: 09/24/2022 9:36 AM Note Text: Physical Therapy Treatment SERVICE DATE: 09/24/2022 SERVICE TIME: 838 to 925 ROOM: [place] [address] Recommended Discharge Disposition: Home PT Recommended Discharge Disposition Comments: 1 additional PT visit this date is required for re-training on stair negotiation to ensure safe d/c to home Anticipated Discharge Needs: Physical Assist at Home Physical Assist at Home for: Cleaning;Laundry;Stair s;Safety;Self Care;Shopping;Transpor tation Recommended Discharge Equipment: No equipment needs anticipated PT 6 Clicks Score: 23 Precautions/Activity Restrictions: Weight Bearing Restrictions;Fall Risk;Total Hip Replacement;Lines/Tube s/Drains Precaution/Activity Restriction Comments: IV Extremity With Weight Bearing Restricted: Right Lower Extremity Right Lower Extremity Weight Bearing Status: WBAT Total Hip Replacement Precautions: Posterior Current Hospital Course: R KARTHIK 09/23/2022 Reason for Hospital Admission: R KARTHIK 09/23 Dr Kahn Relevant Past Medical History: Obesity, OA, L KARTHIK 2016, DVT, HTN Response to Therapy Interventions: Improved tolerance for activity, Good participation in activities, Notable progression with functional activities/skills, Pain Assessment Comments: Increased pain with mobility this date, however patient has not mobilized out of bed since PT session yesterday. Education provided on HEP and increase mobility, d/c use of urinal and call for RN assist to mobilize to/from bathroom as needed. Increased physical assistance was required on stairs this date, patient does not have railing assist for home going and is planning to rely on his son. PT to follow up again this date for repeat stair training to ensure safe to discharge to home today Physical Therapy Problem List: Safety Deficits;Decreased Range Of Motion;Decreased Strength;Functional Mobility Impairment;Balance Impaired Treatment Interventions: Education;Functional Mobility Training;Balance Training;Strengthening ;Joint Mobility Plan for next visit: Stairs training Home Environment Patient Lives With: Self/Alone;Other: See Comment Comments: 2 story house Assistance Available: Part-Time;Other: See Comment Comments: Mom will stay with him for 1-2 weeks; Has 2 children living near by to assist 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 Entry To Home: Stairs;Without Rail Number Of Stairs Into Home: 3 Number Of Stairs To Bed/Bath: planning to stay on first floor with bedroom and commode; 6+6 to second floor Stairs to Bed/Bath with: Unilateral Rail Tub/Shower Type: Tub shower Laundry: Basement, 8 steps with rail - mom can complete Equipment Owned: Commode-3 in 1;Standard Walker;Cane;Crutch(es) Prior Functional Level: Within Functional Limits Prior Functional Level Comments: Independent with all mobility, no use of devices; Admits to limping prior to surgery; 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 My son will be there to help me get into the house CURRENT FUNCTIONAL STATUS: Most recent performance Current Functional Mobility Assist Level Additional Information Rolling Supine to Sit Contact Guard Assistance;Additional Information Cues for sequencing and avoid holding breath; Exhale with exertion Sit to Supine Scooting Stand By Assistance Sit to Stand Contact Guard Assistance;Stand By Assistance;Additional Information Cues for hip precautions, LE placement/KEMAR and push up from seated surface; Progressed from CGA to SBA with repetition Stand to Sit Stand By Assistance Bed to Chair Contact Guard Assistance;Additional Information Bed To Chair Transfer Type: Stepping Bed To Chair Transfer Equipment: Standard Walker Toilet/Commode Gait Stand By Assistance;Additional Information Gait Device: Standard Walker Gait Distance (feet): x40', x100' Cues for sequencing required; Cues for improving upright posture and safe proximity to walker; good return demonstration Stairs Minimal Assistance;Additional Information Stairs Device: Cane;Rail Number of Stairs: 4 Required extensive use of BUE to assist with ascending and descending; Cues and demonstration required for sequencing Curb Step Car Transfer Blank pradhan indicate activity not attempted Gait Deviations Right Lower Extremity: Heel strike during initial stance decreased;Lacks hip extension beyond mid-stance;Stance time decreased;Push off during terminal stance decreased;Step length decreased;Weight bearing decreased General Deviations/Observation s: Antalgic gait;Difficulty changing direction/turning;UE weight bearing on assistive device excessive JH-HLM: 7: Walk 25 feet or more Learning/Educational Needs: Discharge Plan;Disease Proce (more content not included)... Normal [facility] THERAPY NT HNO ID: [id number] Author: Cheyanne Morillo OT/Pool Service: Occupational Therapy Author Type: Occupational Therapist Type: Therapy (PT/OT/Speech/Resp) Filed: 09/24/2022 10:44 AM Note Text: Occupational Therapy Evaluation SERVICE DATE: 09/24/2022 SERVICE TIME: 1007 to 1030 ROOM: [place] [address] Recommended Discharge Disposition: Home OT Recommended Discharge Disposition Comments: pt would benefit from Home OT to assess safety completing ADLs within home environment and continued adherence to hip precautions Anticipated Discharge Needs: Physical Assist at Home;Equipment Physical Assist at Home for: Cleaning;Laundry;Stair s;Safety;Self Care;Shopping;Transpor tation Recommended Discharge Equipment: No equipment needs anticipated OT 6 Clicks Score: 24 Precautions/Activity Restrictions: Weight Bearing Restrictions;Fall Risk;Total Hip Replacement;Lines/Tube s/Drains Precaution/Activity Restriction Comments: IV Extremity With Weight Bearing Restricted: Right Lower Extremity Right Lower Extremity Weight Bearing Status: WBAT Total Hip Replacement Precautions: Posterior Current Hospital Course: R KARTHIK 09/23/2022 Reason for Hospital Admission: R KARTHIK 09/23 Dr Kahn Relevant Past Medical History: Obesity, OA, L KARTHIK 2016, DVT, HTN Response to Therapy Interventions: Good participation in activities, Pain, Requires additional time to complete activities Continue skilled needs due to: Functional impairment, Safety concerns Occupational Therapy Problem List: Pain;Safety Deficits;Impaired Self Care;Decreased Activity Tolerance;Balance Impaired Cognition/Communicatio n Deficits Responsiveness: Alert, Agitated, Awake Follows Commands: 3-step Commands Treatment Interventions: Self Care / Home Management;Education;E nergy Conservation Training;Functional Mobility Training Home Environment Patient Lives With: Self/Alone;Other: See Comment Comments: 2 story house Assistance Available: Part-Time;Other: See Comment Comments: Mom will stay with him for 1-2 weeks; Has 2 children living near by to assist 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 Entry To Home: Stairs;Without Rail Number Of Stairs Into Home: 3 Number Of Stairs To Bed/Bath: planning to stay on first floor with bedroom and commode; 6+6 to second floor Stairs to Bed/Bath with: Unilateral Rail Tub/Shower Type: Tub shower Laundry: Basement, 8 steps with rail - mom can complete Equipment Owned: Commode-3 in 1;Standard Walker;Cane;Crutch(es) Prior Functional Level: Within Functional Limits Prior Functional Level Comments: Independent with all mobility, no use of devices; Admits to limping prior to surgery; 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); + [employer] Baseline Cognition: Oriented to self;Oriented to time;Oriented to place Occupational Factors Life 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: 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;Friend;Parent Identified Strengths: Good Support System;Involvement in Hobbies/Leisure Activities;Follows Multi-Step Commands Identified Barriers: Difficulty with ADLs/IADLs;Managing Pain CURRENT FUNCTIONAL STATUS: Most recent performance Current Activities of Daily Living Assist Level Additional Information Feeding Independent Grooming Independent Bathing Upper Body Independent Bathing Lower Body Independent Dressing Upper Body Independent Dressing Lower Body Independent Toileting Independent Instrumental Activities of Daily Living Assist Level Additional Information Meal/Beverage Prep Cleaning Laundry Medication Management with Strategies Functional Mobility Assist Level Additional Information Rolling Supine to Sit Sit to Supine Scooting Sit to Stand Stand By Assistance Stand to Sit Stand By Assistance Bed to Chair Toilet/Commode Stand By Assistance (using FWW) Shower Functional Mobility Stand By Assistance Standard Walker Blank pradhan indicate activity not attempted Balance: Dynamic Sitting;Dynamic Standing Dynamic Sitting Balance: Good Patient accepts moderate challenge, able to maintain balance while picking up object off floor Dynamic Standing Balance: Good Patient accepts moderate challenge, able to maintain balance while picking up object off floor Learning/Educational Needs: Safety;Self Care;Precautions;Plan of Care Goals for Plan of Care: Patient/Caregiver Goals: Reduce ADL/IADL barriers Goals: Patient will demonstrate progress with self-care, cognitive and/or coping needs identified to allow safe discharge to home with available support and/or physical assistance. Rehab Potential: Excellent Patient will be discontinued from Occupational Therapy when no further skilled needs are identified in this setting. PLAN: OT Frequency: Discontinue therapy services Reasons Therapy Services Discontinued: Goals met Plan of Care developed with: Patient TREATMENT INTERVENTIONS: Therapy Diagnosis: Reduced mobility-other;Decreas ed activities of daily living (ADL) Interventions Provided: Evaluation;Self Fci M (more content not included)... [facility] THERAPY NT HNO ID: [id number] Author: Talia Lee, PT, DPT Service: Physical Therapy Author Type: Physical Therapist Type: Therapy (PT/OT/Speech/Resp) Filed: 09/24/2022 12:29 PM Note Text: Physical Therapy Treatment SERVICE DATE: 09/24/2022 SERVICE TIME: 1200 to 1223 ROOM: [place] [address] Recommended Discharge Disposition: Home PT Recommended Discharge Disposition Comments: Cleared to discharge home from PT standoint. Will have son assist at home for stair negotiation to enter + DME use Anticipated Discharge Needs: Physical Assist at Home;Equipment Physical Assist at Home for: Cleaning;Laundry;Stair s;Safety;Self Care;Shopping;Transpor tation Recommended Discharge Equipment: No equipment needs anticipated PT 6 Clicks Score: 23 Precautions/Activity Restrictions: Weight Bearing Restrictions;Fall Risk;Total Hip Replacement;Lines/Tube s/Drains Precaution/Activity Restriction Comments: IV Extremity With Weight Bearing Restricted: Right Lower Extremity Right Lower Extremity Weight Bearing Status: WBAT Total Hip Replacement Precautions: Posterior Current Hospital Course: R KARTHIK 09/23/2022 Reason for Hospital Admission: R KARTHIK 09/23 Dr Kahn Relevant Past Medical History: Obesity, OA, L KARTHIK 2016, DVT, HTN Response to Therapy Interventions: Good participation in activities, Notable progression with functional activities/skills, On-track to achieve discharge goals Assessment Comments: Improved gait pattern compared to earlier this date, continues to require both physical assist and DME for safe stair negotiation and son will provide assist at discharge. Review of total joint packet and emphasis on HEP completion 2-3x/day upon return to home. Good return demonstration and teach back on education provided. Gait pattern impacted by pain reports. 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 Entry To Home: Stairs;Without Rail Number Of Stairs Into Home: 3 Number Of Stairs To Bed/Bath: planning to stay on first floor with bedroom and commode; 6+6 to second floor Stairs to Bed/Bath with: Unilateral Rail Tub/Shower Type: Tub shower Laundry: Basement, 8 steps with rail - mom can complete Equipment Owned: Commode-3 in 1;Standard Walker;Cane;Crutch(es) Prior Functional Level: Within Functional Limits Prior Functional Level Comments: Independent with all mobility, no use of devices; Admits to limping prior to surgery; 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); + [employer] Baseline Cognition: Oriented to self;Oriented to place;Oriented to time Patient Report: Still having knee pain and groin pain, but has been feeing better since being up in the chair and getting to the bathroom CURRENT FUNCTIONAL STATUS: Most recent performance Current Functional Mobility Assist Level Additional Information Rolling Supine to Sit Contact Guard Assistance;Additional Information Cues for sequencing and avoid holding breath; Exhale with exertion Sit to Supine Scooting Stand By Assistance Sit to Stand Supervision Cues for hip precautions, LE placement/KEMAR and push up from seated surface; Progressed from CGA to SBA with repetition Stand to Sit Supervision Bed to Chair Contact Guard Assistance;Additional Information Bed To Chair Transfer Type: Stepping Bed To Chair Transfer Equipment: Standard Walker Toilet/Commode Gait Supervision;Additional Information Gait Device: Standard Walker Gait Distance (feet): 2 x 40' Continued cues for sequencing and advancment of walker and RLE step into walker for stability Stairs Minimal Assistance;Additional Information Stairs Device: Cane;Rail;Hand Held Assist Number of Stairs: 4 (x2 trials) 1st trial increased use of weight bearing through rail still, and 2nd trail able to significantly reduce weight bearing on rail. Does require physical assistance for safety, unable to ascend or descend with only the SPC. Son will provide assistance at home for negotiation to enter Curb Step Car Transfer Blank pradhan indicate activity not attempted Gait Deviations Right Lower Extremity: Heel strike during initial stance decreased;Lacks hip extension beyond mid-stance;Stance time decreased;Push off during terminal stance decreased;Step length decreased;Weight bearing decreased General Deviations/Observation s: Antalgic gait;Difficulty changing direction/turning;UE weight bearing on assistive nigel (more content not included)... [facility] ANES POSTPROC EVALon 022 ANES POSTPROC EVAL HNO ID: [id number] Author: Aniya Lamb MD Service: Anesthesiology Author Type: Anesthesiologist Type: Anesthesia Postprocedure Evaluation Filed: 09/23/2022 3:39 PM Note Text: POST ANESTHESIA EVALUATION NOTE : 1965 Procedure Summary Date: 09/23/22 Room / Location: OR05 / OR Anesthesia Start: 842 Anesthesia Stop: 1122 Procedure: ARTHROPLASTY HIP BIOMET TAPER LOC (Right: Hip) Diagnosis: Primary osteoarthritis of right hip (Primary osteoarthritis of right hip [M16.11]) Surgeons: Robert Kahn MD Responsible Provider: Aniya Lamb MD Anesthesia Type: spinal ASA Status: 2 Anesthesia Type: spinal Airway Type: ETT Last Vitals Vitals Value Taken Time BP 138/78 09/23/22 1513 Temp 36.8 ?C (98.2 ?F) 09/23/22 1513 Pulse 79 09/23/22 1513 Resp 16 09/23/22 1513 SpO2 98 % 09/23/22 1513 Post Anesthesia Patient Status Patient Evaluation: PACU. Neurological Status: aware and responsive. Pulmonary Status: breathing comfortably on room air Airway Control: returned to baseline unsupported. Cardiovascular Status: stable. Pain Management: clinically adequate Postoperative Hydration: acceptable. Intraoperative Events: no significant anesthesia events Post Operative Nausea/Vomiting Status: no significant post operative nausea or vomiting Recommendation: continue current plan of care. Anesthesia Observations No Documentation SIGNATURE: ANIYA LAMB MD PATIENT NAME: Guy Holloway DATE: September 23, 2022 TIME: 3:39 PM CSN: [id number] [facility] ANES PRE-OPon 09-23-2022 ANES PRE-OP HNO ID: [id number] Author: Aniya Lamb MD Service: Anesthesiology Author Type: Anesthesiologist Type: Anesthesia Preprocedure Evaluation Filed: 09/23/2022 7:29 AM Note Text: ANESTHESIOLOGY DAY OF SURGERY NOTE : 1965 Procedure Information Date/Time: 09/23/22829 Procedure: ARTHROPLASTY HIP BIOMET TAPER LOC (Right: Hip) Location: OR05 / OR Surgeons: Robert Kahn MD Estimated body mass index is 40.01 kg/m? as calculated from the following: Height as of 09/09/22: 182.9 cm (6'). Weight as of 09/09/22: 133.8 kg (295 lb). Most recent hematocrit and potassium results: Hematocrit 47.2 09/09/2022 Potassium 3.8 09/09/2022 Relevant Problems CARDIO (+) Hypertension NEURO-PSYCH (+) History of DVT (deep vein thrombosis) Other (+) Anticoagulated I - PHYSICAL EVALUATION AIRWAY Patient intubated: No. Tracheostomy tube not present Mallampati: II. TM distance: >3 FB. Neck ROM: full ROM without neurological symptoms. Mouth opening: adequate. Short neck: no. Thick neck: no Ag present: no DENTAL Normal dental observations. Dental findings: teeth intact. II - ANESTHESIA PLAN ASA Score: 2 Anesthetic Plan: general Airway type: ETT NPO Status: adequate Anesthetic plan additional comments: Elequis held less than 72 hours. Mariluz aware. . Beta Christine Monitoring Plan Monitoring plan: Standard ASA. Post Procedure Analgesic Plan Postoperative analgesic plan: parenteral or oral opioids and multimodal analgesia. Informed Consent Anesthetic risks, benefits, alternatives, personnel and consent discussed: yes. Patient / Responsible Republican agrees to proceed: yes Patient / Surrogate agrees to blood products: yes DNR status not reviewed with patient and/or family prior to surgery. Significant changes in the patient condition since the History and Physical, not otherwise documented in primary service progress note: no. Potential Anesthesia issues that may suggest increased risk of complications or contraindication to planned procedure: none. No vitals data found for the desired time range. No current facility-administered medications on file as of 09/23/2022. Outpatient Medications as of 09/23/2022 Medication Sig - hydroCHLOROthiazide (HYDRODIURIL, ESIDRIX) 25 mg tablet Take 25 mg by mouth once daily. - lisinopril (ZESTRIL, PRINIVIL) 20 mg tablet Take 1 tablet by mouth once daily. I have interviewed and examined the patient. I have reviewed the medical record and/or the pre-anesthesia evaluation, pertinent labs, and test results. This contains updated information obtained within 48 hours of Surgery/Procedure. SIGNATURE: ANIYA LAMB MD PATIENT NAME: Guy Holloway DATE: September 23, 2022 TIME: 6:38 AM CSN: [id number] [facility] OPERATIVE NOon 09-23-2022 OPERATIVE NO HNO ID: [id number] Author: Robert Kahn MD Service: Orthopaedic Surgery Author Type: Physician Type: Operative Report Filed: 09/23/2022 10:26 AM Note Text: OPERATIVE/PROCEDURE REPORT LOG ID: [id number] SURGERY/PROCEDURE DATE: 09/23/2022 INCISION/PROCEDURE START TIME: 9:25 AM INCISION CLOSE/PROCEDURE END TIME: 1045 SURGEON(S)/PROCEDURALI ST(S) AND SEISMOMETER OPERATOR(S): Surgeon(s) and Role: * Robert Kahn MD - Primary Physician Hospital Pharmacist: Abelardo Tierney PA-C SURGERY/PROCEDURE(S): Right total hip arthroplasty posterior approach ANESTHESIA: General SURGERY/PROCEDURE DETAILS: This is a 57-year-old male with severe right hip osteoarthritis he has multiple osteophytes on x-rays the purpose of today's procedure is to replace the worn-out hip. Written informed consent were obtained in advance. The patient was taken to the operating room he underwent anesthesia he was placed in the lateral position. The whole right lower extremity was prepped and draped in a sterile fashion. A timeout was performed. Patient received IV cefazolin prior to incision for infection prophylaxis. We made a posterior lateral skin incision we establish hemostasis with Bovie cautery. We released the fascia short external rotators and capsule. We tagged the capsule with #5 Ethibond. We dislocated the hip. We placed retractors above and below the femoral neck. We performed a femoral neck cut. We removed the cut femoral head. We placed anterior and posterior acetabular retractors. We reamed sequentially up to size 61 with placed a 61 trial that was satisfactory. We removed the trial and placed a 62 multihole shell in the acetabulum and verified it was seated. We placed 2 screws in the safe zone to depth 25 and 15 mm. We placed a trial liner. We turned our attention to the femur we placed a 2 prong retractor beneath the femur. We used a box osteotome and an awl to gain access to the canal. We then broached sequentially up to size 13. We trialed standard offset and it was just right with a +0 head the leg lengths felt symmetric the hip was stable. We redislocated the hip. We removed the head neck and stem trials we remove the acetabular liner trials. We replaced the acetabular retractors. We placed the final liner. We verified it was seated. We removed additional osteophytes around the cup. We then placed a 2 prong retractor beneath the femur. We inserted the femoral prosthesis. It was stable. We then retrial the minus head and a +0 the minus was too loose the +0 was just right. We removed the head trial from the field. We dried the tape around the stem and placed a 36+0 delta ceramic head on the femur and verified it was seated. We then reduced the hip the leg lengths felt symmetric the hip was stable. We irrigated with dilute Betadine. We irrigated with saline until clear. We ayaz the tack sutures to the abductor in order to repair the capsule. We closed the deep fascia subcutaneous skin superficial skin in layers. We administered RE CK prior to final closure for additional anesthesia. A sterile dressing was applied. The patient was transferred to recovery. PRE-OP/PRE-PROCEDURE DIAGNOSIS: Right hip osteoarthritis POST-OP/POST-PROCEDURE DIAGNOSIS: Same as Preop ESTIMATED BLOOD LOSS: 450 mls SPECIMENS: Femoral head IMPLANTABLE DEVICES: Biomet G7 62 multihole shell, 25 millimeters bone screw, 15 mm bone screw, 30 6H acetabular liner, 13 standard offset Taperloc stem, Biolox delta 36 ceramic head. DRAINS: None COMPLICATIONS: None PARTICIPATION IN SURGERY/PROCEDURE: No qualified resident/fellow was available. Abelardo Tierney PAC was 1st assist. I performed the operation with assistance. No qualified resident was available. A assistant county attorney was necessary for safe patient positioning, protection of tissue, retraction, and suture management. The export sales assistant provided final wound closure, bandage application, and transfer of the patient to the recovery room. SIGNATURE: Robert Kahn MD PATIENT NAME: Guy Holloway DATE: September 23, 2022 TIME: 10:22 AM Normal [facility] SURGICAL PATHOLOGYon 022 CASE REPORT Normal [facility] Comment on above: Order Comment: Speci men Type: SPECIMEN FROM BONEOrdering Facility: [facility] Address: [address] [place] [address] Result Comment: Surg ica Pathology Report Case: [id number] Authorizing Provider: Robert Kahn MD Collected: 09/23/2022 09:28 AM Ordering Location: [facility] Surgery Received: 09/23/2022 10:47 AM Pathologist: Danie Irby MD Specimen: FEMORAL HEAD RIGHT, right femoral head Performed By: #### S ####[facility] LABIA [id number] [address] STATES OF [facility] CLINICAL HISTORY Normal [facility] Comment on above: Order Comment: Speci men Type: SPECIMEN FROM BONEOrdering Facility: [facility] Address: [address] [place], [place] [id number] Result Comment: Femo ral head, right, arthroplasty: -Pre-op diagnosis: Primary osteoarthritis of right hip [M16.11] Performed By: #### S ####[facility] LABIA [id number] [address] [place] FINAL DIAGNOSIS [facility] Comment on above: Order Comment: Speci men Type: SPECIMEN FROM BONEOrdering Facility: [facility] Address: [address] [place] [id number] Result Comment: Righ t femoral head, arthroplasty: - Degenerative joint disease with subchondral cyst formation. - Mild chronic synovitis, nonspecific. Performed By: #### S ####[facility] LABCLIA [id number] [address] OF [facility] FINAL PERFORMING LAB Normal [facility] Comment on above: Order Comment: Speci men Type: SPECIMEN FROM BONEOrdering Facility: [facility] Address: [address] [place], [place] [id number] Result Comment: Diag nostic interpretation performed at [facility], [facility] [place] [address] CLIA# [id number] Field Marketing Manager: Augie Cruz M.D. Performed By: #### S ####[facility] LABCLIA [id number] [address] GROSS DESCRIPTION Normal [facility] spital Comment on above: Order Comment: Speci men Type: SPECIMEN FROM BONEOrdering Facility: [facility] Address: [address] [place] [address] Result Comment: A. F EMORAL HEAD RIGHT Received in formalin, labeled right femoral head is a femoral head measuring approximately 7.3 x 5.8 x 5.3 cm. The articular surface shows an area of eburnation. Recognizable cartilage appears roughened and severe osteophyte formation is present. The femoral head is cut with a band saw, revealing hard, trabecular bone beneath areas of eburnation. Several subchondral cysts are present, measuring up to 1.0 cm in diameter. No grossly necrotic bone is identified. Child Specialist sections are submitted, as follows: A1: Articulating surface, following decalcification A2: Non-articulating, peripheral surface, following decalcification A3: Soft tissue from femoral neck A4: Subchondral cysts, following decalcification AKA September 23, 2022 4:02 PM Gross examination performed at [facility], [facility] [place] [address] Performed By: #### S ####[facility] LABKENIA [id number] [place] [id number] [facility] THERAPY NTon 09-23-2022 THERAPY NT HNO ID: [id number] Author: Talia Lee, PT, DPT Service: Physical Therapy Author Type: Physical Therapist Type: Therapy (PT/OT/Speech/Resp) Filed: 09/23/2022 5:15 PM Note Text: Physical Therapy Evaluation SERVICE DATE: 09/23/2022 SERVICE TIME: 1625 to 1706 ROOM: [place] [address] Recommended Discharge Disposition: Home PT Recommended Discharge Disposition Comments: Anticipate with further recovery patient will progress to Home PT Anticipated Discharge Needs: Physical Assist at Home Physical Assist at Home for: Cleaning;Laundry;Stair s;Safety;Self Care;Shopping;Transpor tation Recommended Discharge Equipment: No equipment needs anticipated PT 6 Clicks Score: 18 Precautions/Activity Restrictions: Weight Bearing Restrictions;Fall Risk;Total Hip Replacement;Lines/Tube s/Drains Precaution/Activity Restriction Comments: IV Extremity With Weight Bearing Restricted: Right Lower Extremity Right Lower Extremity Weight Bearing Status: WBAT Total Hip Replacement Precautions: Posterior Current Hospital Course: R KARTHIK 09/23/2022 Reason for Hospital Admission: R KARTHIK 09/23 Dr Kahn Relevant Past Medical History: Obesity, OA, L KARTHIK 2016, DVT, HTN Response to Therapy Interventions: Good participation in activities, Limited participation, Requires additional time to complete activities Assessment Comments: Increased fatigue post operatively was largest barrier this date; Anticipate with ongoing recovery he will progress well with mobility for further training. Motivated to return to home. Not limited by pain. Continue skilled needs due to: Functional mobility/skill impairments Physical Therapy Problem List: Safety Deficits;Decreased Range Of Motion;Decreased Strength;Functional Mobility Impairment;Balance Impaired Treatment Interventions: Education;Functional Mobility Training;Balance Training;Strengthening ;Joint Mobility Plan for next visit: Fall prevention, Gait training, Exercise instruction/handout, Pre-gait activities Home Environment Patient Lives With: Self/Alone;Other: See Comment Comments: 2 story house Assistance Available: Part-Time;Other: See Comment Comments: Mom will stay with him for 1-2 weeks; Has 2 children living near by to assist 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 Entry To Home: Stairs;Without Rail Number Of Stairs Into Home: 3 Number Of Stairs To Bed/Bath: planning to stay on first floor with bedroom and commode; 6+6 to second floor Stairs to Bed/Bath with: Unilateral Rail Tub/Shower Type: Tub shower Laundry: Basement, 8 steps with rail - mom can complete Equipment Owned: Commode-3 in 1;Standard Walker;Cane;Crutch(es) Prior Functional Level: Within Functional Limits Prior Functional Level Comments: Independent with all mobility, no use of devices; Admits to limping prior to surgery; 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); + [employer] Patient Report: I am pretty tired, and I cannot seem to make any decisions CURRENT FUNCTIONAL STATUS: Most recent performance Current Functional Mobility Assist Level Additional Information Rolling Supine to Sit Minimal Assistance;Additional Information Cues for sequencing and avoid holding breath Sit to Supine Scooting Stand By Assistance Sit to Stand Minimal Assistance;Additional Information Cues for hip precautions, LE placement/KEMAR and push up from seated surface Stand to Sit Contact Guard Assistance Bed to Chair Contact Guard Assistance;Additional Information Bed To Chair Transfer Type: Stepping Bed To Chair Transfer Equipment: Standard Walker Cues for sequencing of walker and stepping pattern throughout Toilet/Commode Gait Additional Information Unable to progress to gait training due to heightened fatigue post operatively and requesting to nap Stairs Curb Step Car Transfer Blank pradhan indicate activity not attempted JH-HLM: 4: Move to chair / commode Learning/Educational Needs: Discharge Plan;Disease Process;Functional Activities/Mobility;Pa in Management;Changes in Plan of Care;Precautions;PT In-Hospital Exercise Program Goals for Plan of Care: Patient /Caregiver Goals: Go Home Goals: Patient will demonstrate progress with functional mobility to allow safe discharge to home with available support and/or physical assistance. Rehab Potential: Good Patient will be discontinued from Physical Therapy when no further skilled needs are identified in this setting. PLAN: PT Frequency: Once daily (+ PRN) Plan of Care developed with: Patient TREATMENT INTERVENTIONS: Therapy Diagnosis: Abnormalities of gait and mobility-other Interventions Provided: Evaluation;Therapeutic Activity (08916);Therapeutic Exercise (75388) $ Evaluation-Moderate (21217) Billed Units: 1 unit Therapeutic Exercise (29734) Treatment Minutes: 14 $ Therapeutic Exercise (84698) Billed Units: 1 unit Ankle Pumps (number of reps): 10 Quad Sets (number of reps): 10 Glut Sets (number of reps): 10 (more content not included)... [facility] XR PELVIS 1V APon 09-23-2022 XR PELVIS 1V AP * * *Final Report* * * DATE OF EXAM: Sep 23 2022 11:47AM VHX 5239 - XR PELVIS 1V AP / PROCEDURE REASON: Post-operative / post-procedure assessment, asymptomatic * * * * Physician Interpretation * * * * EXAMINATION: PELVIS _ Clinical history: Status post arthroplasty Views: AP radiograph Comparison: Comparison is made May 20 RESULT: A right total hip arthroplasty is seen. Alignment is normal. No gross fracture is observed. Ilioischial and iliopectineal lines are intact. IMPRESSION: Status post hip arthroplasty, normal alignment Grade Teacher: RONNELL Transcribe Date/Time: Sep 23 2022 12:17P Dictated by : MARILUZ TERRY MD This examination was interpreted and the report reviewed and electronically signed by: MARILUZ TERRY MD on Sep 23 2022 12:17PM EST [id number] [facility] 09-10-2022 [facility] Telephone (ORAV[place]) GUY HOLLOWAY ([id number]) 1965 M Date Time Provider Department 09/10/22 ROBERT KAHN During your visit today, we recorded the following information about you: Sandra Elmore RN 09/10/2022 3:09 PM Signed I returned the patient's call regarding requested physical therapy order fax. Order was faxed to the patient's preferred therapy facility to begin the process for his upcoming hip surgery. Patient also requested a letter faxed to his employer stating date of surgery and estimated time off of 3 months. Letter faxed to Lucinda-patient's employer. Allergies As of Date: 09/10/2022 (No Known Allergies) Date Reviewed: 09/09/2022 Reviewed by: Mary Kate Welsh APRN.MEDIA JOB TITLES - Fully Assessed Reason for Visit: Patient Question [9677] Prescriptions as of 09/10/2022 - ELIQUIS 5 mg tab(s) Take by mouth twice daily. - hydroCHLOROthiazide (HYDRODIURIL, ESIDRIX) 25 mg tablet Take 25 mg by mouth once daily. - metoprolol succinate ER (TOPROL XL) 25 mg 24 hr tablet Take by mouth once daily. - hydroCHLOROthiazide (HYDRODIURIL, ESIDRIX) 25 mg tablet - lisinopril (ZESTRIL, PRINIVIL) 20 mg tablet Take 1 tablet by mouth once daily. Problem List As Of Date 09/10/2022 Noted Resolved Hypertension [I10] Primary osteoarthritis of left hip [M16.12] 10/21/2015 History of total hip replacement [Z96.649] 12/04/2015 S/P hip replacement [Z96.649] 01/22/2016 History of DVT (deep vein thrombosis) [Z86.718] 09/09/2022 Anticoagulated [Z79.01] 09/09/2022 Obesity [E66.9] 09/09/2022 Encounter Status:Closed by SANDRA ELMORE on 09/10/22 [facility] CBC W Auto Differential pane l (Bld)on 09-09-2022 Basophils (Bld) [#/Vol] 0.05 10*3/uL Normal <0.11 [facility] Comment on above: Order Comment: Speci men Type: BLOOD SPECIMENOrdering Facility: [facility] Address: [address] [place] [id number] Performed By: #### 5 7021-8 ####[facility] LABCLIA [id number] [address] [address] [place] Basophils/100 WBC (Bld) 0.6 % [facility] Comment on above: Order Comment: Speci men Type: BLOOD SPECIMENOrdering Facility: [facility] Address: [address] [place] [address] Performed By: #### 5 7021-8 ####[facility] LABCLIA [id number] [place] [address] [place] Differential cell count method Nom (Bld) Auto [facility] Comment on above: Order Comment: Speci men Type: BLOOD SPECIMENOrdering Facility: [facility] Address: [address] [place] [address] Performed By: #### 5 7021-8 ####[facility] LABCLIA [id number] [place] [address] [place] Eosinophils (Bld) [#/Vol] 0.16 10*3/uL Normal <0.46 [facility] Comment on above: Order Comment: Speci men Type: BLOOD SPECIMENOrdering Facility: [facility] Address: [address] [place] [address] Performed By: #### 5 7021-8 ####[facility] LABCLIA [id number] [place] [address] [place] Eosinophils/100 WBC (Bld) 2.0 % [facility] Comment on above: Order Comment: Speci men Type: BLOOD SPECIMENOrdering Facility: [facility] Address: [address] [place] [address] Performed By: #### 5 7021-8 ####[facility] LABCLIA [id number] [place] [address] [place] Erythrocyte distribution width (RBC) [Ratio] 13.7 % Normal 11.5-15.0 [facility] Comment on above: Order Comment: Speci men Type: BLOOD SPECIMENOrdering Facility: [facility] Address: [address] [address] Performed By: #### 5 7021-8 ####[facility] LABIA [id number] [place] [address] [place] Hematocrit (Bld) [Volume fraction] 47.2 % Normal 39.0-51.0 [facility] Comment on above: Order Comment: Speci men Type: BLOOD SPECIMENOrdering Facility: [facility] Address: [address] [address] Performed By: #### 5 7021-8 ####[facility] LABIA [id number] [place] [address] [place] Hemoglobin (Bld) [Mass/Vol] 16.3 g/dL Normal 13.0-17.0 [facility] Comment on above: Order Comment: Speci men Type: BLOOD SPECIMENOrdering Facility: [facility] Address: [address] [address] Performed By: #### 5 7021-8 ####[facility] LABIA [id number] [place] [address] [place] Immature granulocytes (Bld) [#/Vol] 0.04 10*3/uL Normal <0.10 [facility] Comment on above: Order Comment: Speci men Type: BLOOD SPECIMENOrdering Facility: [facility] Address: [address] [address] Performed By: #### 5 7021-8 ####[facility] LABIA [id number] [place] [address] [place] Immature granulocytes/100 WBC (Bld) 0.5 % [facility] Comment on above: Order Comment: Speci men Type: BLOOD SPECIMENOrdering Facility: [facility] Address: [address] [address] Performed By: #### 5 7021-8 ####[facility] LABCLIA [id number] [place] [address] [place] Lymphocytes (Bld) [#/Vol] 2.15 10*3/uL Normal 1.00-4.00 [facility] Comment on above: Order Comment: Speci men Type: BLOOD SPECIMENOrdering Facility: [facility] Address: [address] [place] [address] Performed By: #### 5 7021-8 ####[facility] LABCLIA [id number] [place] [address] [place] Lymphocytes/100 WBC (Bld) 27.1 % Normal [facility] Comment on above: Order Comment: Speci men Type: BLOOD SPECIMENOrdering Facility: [facility] Address: [address] [place] [address] Performed By: #### 5 7021-8 ####[facility] LABIA [id number] [place] [address] [place] MCH (RBC) [Entitic mass] 29.1 pg Normal 26.0-34.0 [facility] Comment on above: Order Comment: Speci men Type: BLOOD SPECIMENOrdering Facility: [facility] Address: [address] [place] [address] Performed By: #### 5 7021-8 ####[facility] LABIA [id number] [place] [address] [place] MCHC (RBC) [Mass/Vol] 34.5 g/dL Normal 30.5-36.0 [facility] Comment on above: Order Comment: Speci men Type: BLOOD SPECIMENOrdering Facility: [facility] Address: [address] [place] [address] Performed By: #### 5 7021-8 ####[facility] LABCLIA [id number] [id number] [address] [place] MCV (RBC) [Entitic vol] 84.1 fL Normal 80.0-100.0 [facility] Comment on above: Order Comment: Speci men Type: BLOOD SPECIMENOrdering Facility: [facility] Address: [address] [place] [address] Performed By: #### 5 7021-8 ####[facility] LABCLIA [id number] [place] [address] [place] Monocytes (Bld) [#/Vol] 0.78 10*3/uL Normal <0.87 [facility] Comment on above: Order Comment: Speci men Type: BLOOD SPECIMENOrdering Facility: [facility] Address: [address] [place] [address] Performed By: #### 5 7021-8 ####[facility] LABCLIA [id number] [place] [address] [place] Monocytes/100 WBC (Bld) 9.8 % Normal [facility] Comment on above: Order Comment: Speci men Type: BLOOD SPECIMENOrdering Facility: [facility] Address: [address] [place] [address] Performed By: #### 5 7021-8 ####[facility] LABCLIA [id number] [place] [address] [place] Neutrophils (Bld) [#/Vol] 4.76 10*3/uL Normal 1.45-7.50 [facility] Comment on above: Order Comment: Speci men Type: BLOOD SPECIMENOrdering Facility: [facility] Address: [address] [place] [address] Performed By: #### 5 7021-8 ####[facility] LABCLIA [id number] [place] [address] [place] Neutrophils/100 WBC (Bld) 60.0 % Normal [facility] Comment on above: Order Comment: Speci men Type: BLOOD SPECIMENOrdering Facility: [facility] Address: [address] [address] Performed By: #### 5 7021-8 ####[facility] LABIA [id number] [place] [address] [place] Nucleated RBC (Bld) [#/Vol] 10*3/uL Normal <0.01 [facility] Comment on above: Order Comment: Speci men Type: BLOOD SPECIMENOrdering Facility: [facility] Address: [address] [address] Performed By: #### 5 7021-8 ####[facility] LABIA [id number] [place] [address] [place] Nucleated RBC/100 WBC (Bld) [Ratio] 0.0 /100 WBC Normal [facility] Comment on above: Order Comment: Speci men Type: BLOOD SPECIMENOrdering Facility: [facility] Address: [address] [place] [address] Performed By: #### 5 7021-8 ####[facility] LABIA [id number] [place] [address] [place] Platelet mean volume (Bld) [Entitic vol] 10.1 fL Normal 9.0-12.7 [facility] Comment on above: Order Comment: Speci men Type: BLOOD SPECIMENOrdering Facility: [facility] Address: [address] [address] Performed By: #### 5 7021-8 ####[facility] LABIA [id number] [place] [address] [place] Platelets (Bld) [#/Vol] 197 10*3/uL Normal 150-400 [facility] Comment on above: Order Comment: Speci men Type: BLOOD SPECIMENOrdering Facility: [facility] Address: [address] [place] [address] Performed By: #### 5 7021-8 ####[facility] LABCLIA [id number] [address] [address] [place] RBC (Bld) [#/Vol] 5.61 10*6/uL Normal 4.20-6.00 [facility] Comment on above: Order Comment: Speci men Type: BLOOD SPECIMENOrdering Facility: [facility] Address: [address] [place] [address] Performed By: #### 5 7021-8 ####[facility] LABCLIA [id number] [place] [address] [place] WBC (Bld) [#/Vol] 7.94 10*3/uL Normal 3.70-11.00 [facility] Comment on above: Order Comment: Speci men Type: BLOOD SPECIMENOrdering Facility: [facility] Address: [address] [place] [address] Performed By: #### 5 7021-8 ####[facility] LABCLIA [id number] [place] [address] [place] Comprehensive metabolic 2000 panelon 09-09-2022 Albumin [Mass/Vol] 4.4 g/dL Normal 3.9-4.9 [facility] Comment on above: Order Comment: Speci men Type: BLOOD SPECIMENOrdering Facility: [facility] Address: [address] [place], [place] [address] Performed By: #### 2 4323-8, 63548-4 ####[facility] LABCLIA [id number] [address] [id number] [place] ALP [Catalytic activity/Vol] 80 U/L Normal 38-113 [facility] Comment on above: Order Comment: Speci men Type: BLOOD SPECIMENOrdering Facility: [facility] Address: [address] [place], [place] [address] Performed By: #### 2 4323-8, 77419-7 ####[facility] LABCLIA [id number] [place] [address] [place] ALT [Catalytic activity/Vol] 25 U/L Normal 10-54 [facility] Comment on above: Order Comment: Speci men Type: BLOOD SPECIMENOrdering Facility: [facility] Address: [address] [place] [address] Performed By: #### 2 4323-8, 38486-4 ####[facility] LABCLIA [id number] [place] [address] [place] Anion gap [Moles/Vol] 11 mmol/L Normal 9-18 [facility] Comment on above: Order Comment: Speci men Type: BLOOD SPECIMENOrdering Facility: [facility] Address: [address] [place] [address] Performed By: #### 2 4323-8, 72976-5 ####[facility] LABCLIA [id number] [place] [address] [place] AST [Catalytic activity/Vol] 22 U/L Normal 14-40 [facility] Comment on above: Order Comment: Speci men Type: BLOOD SPECIMENOrdering Facility: [facility] Address: [address] [place] [address] Performed By: #### 2 4323-8, 06406-4 ####[facility] LABCLIA [id number] [place] [address] [place] Bilirubin [Mass/Vol] 0.9 mg/dL Normal 0.2-1.3 [facility] Comment on above: Order Comment: Speci men Type: BLOOD SPECIMENOrdering Facility: [facility] Address: [address] [place] [address] Performed By: #### 2 4323-8, 89246-0 ####[facility] LABCLIA [id number] [place] [address] [place] Calcium [Mass/Vol] 9.8 mg/dL Normal 8.5-10.2 [facility] Comment on above: Order Comment: Speci men Type: BLOOD SPECIMENOrdering Facility: [facility] Address: [address] [place] [address] Performed By: #### 2 4323-8, 10134-3 ####[facility] LABCLIA [id number] [place] [address] [place] Chloride [Moles/Vol] 101 mmol/L Normal 97-105 [facility] Comment on above: Order Comment: Speci men Type: BLOOD SPECIMENOrdering Facility: [facility] Address: [address] [place] [address] Performed By: #### 2 4323-8, 68430-4 ####[facility] LABCLIA [id number] [place] [address] [place] CO2 [Moles/Vol] 27 mmol/L Normal 22-30 [facility] Comment on above: Order Comment: Speci men Type: BLOOD SPECIMENOrdering Facility: [facility] Address: [address] [place] [address] Performed By: #### 2 4323-8, 03034-3 ####[facility] LABCLIA [id number] [place] [address] [place] Creatinine [Mass/Vol] 1.09 mg/dL Normal 0.73-1.22 [facility] Comment on above: Order Comment: Speci men Type: BLOOD SPECIMENOrdering Facility: [facility] Address: [address] [place] [address] Performed By: #### 2 4323-8, 12055-9 ####[facility] LABCLIA [id number] [place] [address] [place] ESTIMATED GLOMERULAR FILTRATION RATE 78 mL/min/1.73m??? Normal >=60 [facility] Comment on above: Order Comment: Ileana mace Type: BLOOD SPECIMENOrdering Facility: [facility] Address: [address] [phone] Result Comment: Judy mated Glomerular Filtration Rate (eGFR) is calculated using the 2020 CKD-EPI creatinine equation. This equation utilizes serum creatinine, sex, and age as parameters. The creatinine assay has traceable calibration to isotope dilution-mass spectrometry. Refer to KDIGO guidelines for clinical interpretation. In patients with unstable renal function, e.g. those with acute kidney injury, the eGFR may not accurately reflect actual GFR. Performed By: #### 2 4323-8, 26156-4 ####[facility] LABIA [id number] [place] [address] [place] Glucose [Mass/Vol] 102 mg/dL High 74-99 [facility] Comment on above: Order Comment: Ileana mace Type: BLOOD SPECIMENOrdering Facility: [facility] Address: [address] [phone] Result Comment: The [place] [employer] (ADA) provides guidance for cutoff values for fasting glucose and random glucose. The ADA defines fasting as no caloric intake for at least 8 hours. Fasting plasma glucose results between 100 to 125 mg/dL indicate increased risk for diabetes (prediabetes). Fasting plasma glucose results greater than or equal to 126 mg/dL meet the criteria for diagnosis of diabetes. In the absence of unequivocal hyperglycemia, results should be confirmed by repeat testing. In a patient with classic symptoms of hyperglycemia or hyperglycemic crisis, random plasma glucose results greater than or equal to 200 mg/dL meet the criteria for diagnosis of diabetes. Reference: Standards of Medical Care in Diabetes 2016, [place] [employer] Association. Diabetes Care. 2016.39(Suppl 1). Performed By: #### 2 4323-8, 17389-9 ####[facility] LABCLIA [id number] [place] [id number] [place] Potassium [Moles/Vol] 3.8 mmol/L Normal 3.7-5.1 [facility] Comment on above: Order Comment: Speci men Type: BLOOD SPECIMENOrdering Facility: [facility] Address: [address] [address] Performed By: #### 2 4323-8, 20735-2 ####[facility] LABCLIA [id number] [place] [address] [place] Protein [Mass/Vol] 7.0 g/dL Normal 6.3-8.0 [facility] Comment on above: Order Comment: Speci men Type: BLOOD SPECIMENOrdering Facility: [facility] Address: [address] [place] [address] Performed By: #### 2 4323-8, 36690-2 ####[facility] LABCLIA [id number] [place] [address] [place] Sodium [Moles/Vol] 139 mmol/L Normal 136-144 [facility] Comment on above: Order Comment: Speci men Type: BLOOD SPECIMENOrdering Facility: [facility] Address: [address] [place] [address] Performed By: #### 2 4323-8, 00195-3 ####[facility] LABCLIA [id number] [place] [address] [place] Urea nitrogen [Mass/Vol] 19 mg/dL Normal 9-24 [facility] Comment on above: Order Comment: Speci men Type: BLOOD SPECIMENOrdering Facility: [facility] Address: [address] [address] Performed By: #### 2 4323-8, 99554-7 ####[facility] LABCLIA [id number] [place] [address] [place] Ferritin SerPl-mCncon 2021 Ferritin [Mass/Vol] 435.0 ng/mL Normal 30.3-565.7 [facility] Comment on above: Order Comment: Speci men Type: BLOOD SPECIMENOrdering Facility: [facility] Address: [address] [phone] Performed By: #### 2 276-4 ####[facility] LABCLIA [id number] [address] [id number] [address] [place] HISTORY PHYSICALon HISTORY PHYSICAL HNO ID: [id number] Author: Mary Kate Welsh APRN.MEDIA JOB TITLES Service: ? Author Type: Nurse Practitioner Type: HANDP Filed: 09/10/2022 5:35 PM Note Text: HISTORY AND PHYSICAL EXAMINATION SERVICE DATE: 09/09/2022 SERVICE TIME: 5:34 PM PRIMARY CARE PHYSICIAN: Danielle Hernandez MD, MD REASON FOR VISIT: Guy Holloway is a 57 year old male who is scheduled for Procedure(s): ARTHROPLASTY HIP BIOMET TAPER LOC (Right) at the request of Dr. Robert Kahn MD for consultation. My final recommendation will be communicated back to the requesting physician by way of shared medical record or letter. Subjective COVID-19 Immunization Status Overdue - COVID-19 VACCINE (4 - Booster for Pfizer series) Overdue since 12/01/2021 10/06/2021 Imm Admin: COVID-19 original vaccine, age 12+ yr, monovalent (PFIZER-BIONTECH - PURPLE TOP) 02/05/2021 Imm Admin: COVID-19 original vaccine, age 12+ yr, monovalent (PFIZER-BIONTECH - PURPLE TOP) 01/15/2021 Imm Admin: COVID-19 original vaccine, age 12+ yr, monovalent (PFIZER-BIONTECH - PURPLE TOP) CHIEF COMPLAINT: right hip HPI: Pt. presenting with history of osteoarthritis of right hip causing pain that has progressively worsened 6-10 years affecting activity level and quality of life. Pt. reports the pain as constant ache that is worst with activity and relieved with rest. Pt. has not done any interventions; he is s/p left total hip arthroplasty. Pt. is recommended for surgery. REVIEW OF SYSTEMS: General: No weight loss, malaise or fevers. Neurological: No history of TIA's, stroke, ARTIFICIAL FLY TIER tumor, impaired sensorium, hemiplegia, paraplegia or quadraplegia. No neurological symptoms or problems. Respiratory: No history of current cough or dyspnea, or pneumonia in the past 6 weeks. No history of respiratory/pulmonary symptoms or problems. Cardiovascular: Positive for: anticoagulation therapy, DVT/PE and hypertension Negative for: CAD, chest pain, hyperlipidemia, recent WI and murmur/valvular heart disease. GI: No history of GI symptoms or problems. No history of esophageal varices, recent ascites, or ETOH greater than 2 drinks per day. : No history of dysuria, frequency or incontinence, stones or chronic kidney disease. No difficulty urinating, nocturia > 1 time per night or hematuria. Endocrine: No history of diabetes. Has not taken steroids within the past 30 days. No history of endocrinological symptoms or problems. Hematology: Positive for: chronic anti-coagulation/plate let meds. Patient is on anti-coagulation/plate let medication(s): DOAC. Negative for: anemia and thrombocytopenia. Oncology: No history of CA metastasis, chemo within 30 days, or radiotherapy within 90 days. No history of oncological symptoms or problems. Psych: No history of psychiatric symptoms or problems. Musculoskeletal: See HPI. Skin: Negative for lesions, rash and itching. PAST MEDICAL HISTORY Diagnosis Date Hypertension Osteoarthritis S/P hip replacement 01/22/2016 PAST SURGICAL HISTORY Procedure Laterality Date CHOLECYSTECTOMY 10/04/2004 COLONOSCOPY SCREENING PAST SURGICAL HISTORY OF knee arthrotomy PAST SURGICAL HISTORY OF Left total hip arthroplasty FAMILY HISTORY Problem Relation Age of Onset other (cva [Other]) Maternal Aunt other (unknown [Other]) Father Social History Tobacco Use Smoking status: Never Smokeless tobacco: Never Substance Use Topics Alcohol use: Yes Comment: monthly maybe Drug use: Never Prior to Admission medications as of 09/09/22 1419 Medication Sig Last Dose Taking ELIQUIS 5 mg tab(s) Take by mouth twice daily. Taking Yes hydroCHLOROthiazide (HYDRODIURIL, ESIDRIX) 25 mg tablet Take 25 mg by mouth once daily. Taking Yes metoprolol succinate ER (TOPROL XL) 25 mg 24 hr tablet Take by mouth once daily. Taking Yes lisinopril (ZESTRIL, PRINIVIL) 20 mg tablet Take 1 tablet by mouth once daily. Taking Yes hydroCHLOROthiazide (HYDRODIURIL, ESIDRIX) 25 mg tablet No medication comments found. ALLERGIES No Known Allergies Objective PHYSICAL EXAM: General: alert and oriented and obese. Pertinent negatives noted - not distressed. oriented x 3 . Skin: normal color, no rash or lesions. HEENT: EOM intact, pupils equal round and pupils reactive to light. Pertinent negatives noted - no carotid bruit. Oropharynx clear. Neck Supple . Cardiovascular: regular rate and rhythm, normal S1 and S2, no rub, murmurs, or gallop. Respiratory: normal breath sounds, no wheezes or crackles. No chest wall deformity or tenderness. Abdomen: bowel sounds present and soft. Pertinent negatives noted - not tender. except small umbilical hernia observed- no s/sx of strangulation observed. Extremities: no deformity, no edema or tenderness, no joint swelling or clubbing. except BLE BACK ORDER CLERK edema, No vascular discoloration, NO erythema or ulcers Right hip- detailed deferred to surgeon . Neurological: normal cognition a (more content not included)... [facility] Iron and Iron binding capaci ty panelon 09-09-2022 Iron [Mass/Vol] 74 ug/dL Normal 41-186 [facility] Comment on above: Order Comment: Speci men Type: BLOOD SPECIMENOrdering Facility: [facility] Address: [address] [address] Performed By: #### 2 4323-8, 41285-4 ####[facility] LABIA [id number] [place] [address] [place] Iron binding capacity [Mass/Vol] 341 ug/dL Normal 232-386 [facility] Comment on above: Order Comment: Speci men Type: BLOOD SPECIMENOrdering Facility: [facility] Address: [address] [address] Performed By: #### 2 4323-8, 59223-2 ####[facility] LABCLIA [id number] [place] [address] [place] Iron/TIBC [Molar ratio] 21.7 % Normal 15.0-57.0 [facility] Comment on above: Order Comment: Speci men Type: BLOOD SPECIMENOrdering Facility: [facility] Address: [address] [address] Performed By: #### 2 4323-8, 21047-5 ####[facility] LABCLIA [id number] [place] [id number] [address] [place] TYPE AND SCREEN,30 DAYon ABO A Normal [facility] Comment on above: Order Comment: Speci men Type: BLOOD SPECIMENOrdering Facility: [facility] Address: [address] [place] [address] Performed By: #### T SCR30 ####CC MAIN BLOOD BANKCLIA [id number] [address] [place] HISTORICAL AB SCR STATUS Negative [facility] Comment on above: Order Comment: Speci men Type: BLOOD SPECIMENOrdering Facility: [facility] Address: [address] [place] [address] Performed By: #### T SCR30 ####CC MAIN BLOOD BANKCLIA [id number] [address] [place] Rh Nom (Bld) Positive Normal [facility] Comment on above: Order Comment: Speci men Type: BLOOD SPECIMENOrdering Facility: [facility] Address: [address] [place] [address] Performed By: #### T SCR30 ####CC MAIN BLOOD BANKCLIA [id number] [address] [place] CNPJeanne 09-08-2022 CNPN Telephone (LOPTRM) GUY HOLLOWAY ([id number]) 1965 M Date Time Provider Department 09/08/22 ROBERT KAHN LOPT During your visit today, we recorded the following information about you: Jania Santamaria 09/08/2022 3:30 PM Signed LVM for patient to call with the name and phone number of facility he would like to go to for outpatient PT. Talia Pia Pascual 09/09/2022 11:55 AM Signed Patient returning call with PT information requested, [facility] [address] FAX:[phone] Jania Santamaria 09/16/2022 3:51 PM Signed Patient is scheduled at [facility] on 09/29 at 4:00 Allergies As of Date: 09/08/2022 (No Known Allergies) Date Reviewed: 07/30/2022 Reviewed by: Robert Kahn MD - Fully Assessed Reason for Visit: Appointment [186] Prescriptions as of 09/16/2022 - ELIQUIS 5 mg tab(s) Take by mouth twice daily. - hydroCHLOROthiazide (HYDRODIURIL, ESIDRIX) 25 mg tablet Take 25 mg by mouth once daily. - metoprolol succinate ER (TOPROL XL) 25 mg 24 hr tablet Take by mouth once daily. - hydroCHLOROthiazide (HYDRODIURIL, ESIDRIX) 25 mg tablet - lisinopril (ZESTRIL, PRINIVIL) 20 mg tablet Take 1 tablet by mouth once daily. Problem List As Of Date 09/08/2022 Noted Resolved Hypertension [I10] Primary osteoarthritis of left hip [M16.12] 10/21/2015 History of total hip replacement [Z96.649] 12/04/2015 S/P hip replacement [Z96.649] 01/22/2016 Encounter Status:Closed by JANIA WILKINSON on 09/08/22 [facility]-2022 Albumin [Mass/Vol] 3.9 g/dL Normal 3.4-5.0 [facility] Comment on above: Performed By: #### C MP, ALB #### [facility] [address] [address] [address] Kaylen Tejeda CBC AUTO DIFFon 09-01-2022 BASO # 0.1 103/ul Normal 0.0-0.1 [facility] Comment on above: Performed By: #### C MP, ALB #### [facility] [address] [place] [address] Dr. Kaylen Tejeda Basophils/100 WBC (Bld) 0.8 % Normal 0.2-2.0 [facility] Comment on above: Performed By: #### C MP, ALB #### [facility] [address] [place] [address] Dr. Kaylen Tejeda EO # 0.2 103/ul Normal 0.0-0.7 [facility] Comment on above: Performed By: #### C MP, ALB #### [facility] [address] [place] [address] Dr. Kaylen Tejeda Eosinophils/100 WBC (Bld) 2.1 % Normal 0.9-7.0 [facility] Comment on above: Performed By: #### C MP, ALB #### [facility] [address] [place] [address] Dr. Kaylen Tejeda Erythrocyte distribution width (RBC) [Ratio] 13.9 % Normal 11.0-15.0 [facility] Comment on above: Performed By: #### C MP, ALB #### [facility] [address] [place] [address] Dr. Kaylen Tejeda Hematocrit (Bld) [Volume fraction] 44.8 % Normal 42.0-54.0 [facility] Comment on above: Performed By: #### C MP, ALB #### [facility] [address] [place] [address] Dr. Kaylen Tejeda Hemoglobin (Bld) [Mass/Vol] 15.3 g/dL Normal 14.0-18.0 [facility] Comment on above: Performed By: #### C MP, ALB #### [facility] [address] [place] [address] Dr. Kaylen Tejeda IG # 0.04 10e3/ul Critically high 0.00-0.03 [facility] Comment on above: Performed By: #### C MP, ALB #### [facility] [address] [place] [address] Dr. Kaylen Tejeda IG % 0.5 % Normal 0.0-0.5 [facility] Comment on above: Performed By: #### C MP, ALB #### [facility] [address] [address] [address] Kaylen Tejeda LYMPH # 2.5 103/ul Normal 1.2-3.8 [facility] Comment on above: Performed By: #### C MP, ALB #### [facility] [address] [address] [address] Kaylen Tejeda Lymphocytes/100 WBC (Bld) 29.1 % Normal 20.5-60.0 [facility] Comment on above: Performed By: #### C MP, ALB #### [facility] [address] [address] [address] Kaylen Tejeda MANUAL DIFF REQ NO Normal [facility] Comment on above: Performed By: #### C MP, ALB #### [facility] [address] [place] [address] Dr. Kaylen Tejeda MCH (RBC) [Entitic mass] 28.8 pg Normal 25.9-34.0 [facility] Comment on above: Performed By: #### C MP, ALB #### [facility] [address] [place] [address] Dr. Kaylen Tejeda MCHC (RBC) [Mass/Vol] 34.2 g/dL Normal 29.9-35.2 [facility] Comment on above: Performed By: #### C MP, ALB #### [facility] [address] [place] [address] Dr. Kaylen Tejeda MCV (RBC) [Entitic vol] 84.2 fL Normal 80.0-94.0 [facility] Comment on above: Performed By: #### C MP, ALB #### [facility] [address] [place] [address] Dr. Kaylen Tejeda MONO # 1.0 103/ul Critically high 0.3-0.[address] [facility] Comment on above: Performed By: #### C MP, ALB #### [facility] [address] [place] [address] Dr. Kaylen Tejeda Monocytes/100 WBC (Bld) 11.2 % Normal 1.7-12.0 [facility] Comment on above: Performed By: #### C MP, ALB #### [facility] [address] [place] [address] Dr. Kaylen Tejeda NEUT # 4.9 103/ul Normal 1.4-6.5 [facility] Comment on above: Performed By: #### C MP, ALB #### [facility] [address] [place] [address] Dr. Kaylen Tejeda Neutrophils/100 WBC (Bld) 56.3 % Normal 43.0-75.0 [facility] Comment on above: Performed By: #### C MP, ALB #### [facility] [address] [place] [address] Dr. Kaylen Tejeda Platelet mean volume (Bld) [Entitic vol] 10.0 fL Normal 9.5-13.5 [facility] Comment on above: Performed By: #### C MP, ALB #### [facility] [address] [place] [address] Dr. Kaylen Tejeda PLT 199 103/ul Normal 150-450 [facility] Comment on above: Performed By: #### C MP, ALB #### [facility] [address] [place] [address] Dr. Kaylen Teejda RBC 5.32 106/ul Normal 4.70-6.10 [facility] Comment on above: Performed By: #### C MP, ALB #### [facility] [address] [place] [address] Dr. Kaylen Tejeda WBC 8.7 103/ul Normal 4.0-11.0 [facility] Comment on above: Performed By: #### C MP, ALB #### [facility] [address] [place] [address] Dr. Kaylen Tejeda PROF 14(COMP METB)on 022 Albumin/Globulin [Mass ratio] 1.2 {ratio} Normal [facility] Comment on above: Performed By: #### C MP, ALB #### [facility] [address] [place] [address] Dr. Kaylen Tejeda ALP [Catalytic activity/Vol] 78 U/L Normal 46-116 [facility] Comment on above: Performed By: #### C MP, ALB #### [facility] [address] [place] [address] Dr. Kaylen Tejeda ALT [Catalytic activity/Vol] 34 U/L Normal 16-63 [facility] Comment on above: Performed By: #### C MP, ALB #### [facility] [address] [place] [address] Dr. Kaylen Tejeda Anion gap [Moles/Vol] 8.8 mmol/L Normal [facility] Comment on above: Performed By: #### C MP, ALB #### [facility] [address] [place] [address] Dr. Kaylen Tejeda AST [Catalytic activity/Vol] 9 U/L Critically low 15-37 [facility] Comment on above: Performed By: #### C MP, ALB #### [facility] [address] [place] [address] Dr. Kaylen Tejeda Bilirubin [Mass/Vol] 0.8 mg/dL Normal 0.2-1.0 [facility] Comment on above: Performed By: #### C MP, ALB #### [facility] [address] [place] [address] Dr. Kaylen Tejeda Calcium [Mass/Vol] 9.0 mg/dL Normal 8.5-10.1 [facility] Comment on above: Performed By: #### C MP, ALB #### [facility] [address] [place] [address] Dr. Kaylen Tejeda Chloride [Moles/Vol] 101 mmol/L Normal 98-107 [facility] Comment on above: Performed By: #### C MP, ALB #### [facility] [address] [place] [address] Dr. Kaylen Tejeda CO2 [Moles/Vol] 31.8 mmol/L Normal 21.0-32.0 [facility] Comment on above: Performed By: #### C MP, ALB #### [facility] [address] [place] [address] Dr. Kaylen Tejeda Creatinine [Mass/Vol] 1.12 mg/dL Normal 0.70-1.30 [facility] Comment on above: Performed By: #### C MP, ALB #### [facility] [address] [place] [address] Dr. Kaylen Tejeda EGFR-AF IRISH >60 Normal >=60 [facility] Comment on above: Performed By: #### C MP, ALB #### [facility] [address] [address] [address] Kaylen Tejeda EGFR-NON AF IRISH >60 Normal >=60 [facility] Comment on above: Performed By: #### C MP, ALB #### [facility] [address] [address] [address] Kaylen Tejeda Globulin (S) [Mass/Vol] 3.3 g/dL Normal [facility] Comment on above: Performed By: #### C MP, ALB #### [facility] [address] [place] [address] Dr. Kaylen Tejeda Glucose [Mass/Vol] 97 mg/dL Normal 74-106 [facility] Comment on above: Performed By: #### C MP, ALB #### [facility] [address] [place] [address] Dr. Kaylen Tejeda Potassium [Moles/Vol] 3.6 mmol/L Normal 3.5-5.1 [facility] Comment on above: Performed By: #### C MP, ALB #### [facility] [address] [place] [address] Dr. Kaylen Tejeda Protein [Mass/Vol] 7.2 g/dL Normal 6.4-8.2 [facility] Comment on above: Performed By: #### C MP, ALB #### [facility] [address] [place] [address] Dr. Kaylen Tejeda Sodium [Moles/Vol] 138 mmol/L Normal 136-145 [facility] Comment on above: Performed By: #### C MP, ALB #### [facility] [address] [place] [address] Dr. Kaylen Tejeda Urea nitrogen [Mass/Vol] 22.0 mg/dL Critically high 7.0-18.0 [facility] Comment on above: Performed By: #### C MP, ALB #### [facility] [address] [address] [address] Kaylen Tejeda Urea nitrogen/Creatinine [Mass ratio] 19.6 mg/mg Normal [facility] Comment on above: Performed By: #### C MP, ALB #### [facility] [address] [address] [address] Kaylen Lozano 08-26-2022 CNPN Telephone ([place]) GUY HOLLOWAY ([id number]) 1965 M Date Time Provider Department 08/26/22 ROBERT KAHN During your visit today, we recorded the following information about you: Jeaneth Santamaria 08/26/2022 10:03 AM Signed adult and pediatric neurologist spoke to patient regarding 09/23/[address] Kahn. Will review on MyChart and mailed paperwork. Allergies As of Date: 08/26/2022 (No Known Allergies) Date Reviewed: 07/30/2022 Reviewed by: Robert Kahn MD - Fully Assessed Reason for Visit: Surgical Follow Up [176] Prescriptions as of 08/26/2022 - lisinopril (PRINIVIL) 20 mg tablet Take 1 tablet by mouth once daily. - amLODIPine (NORVASC) 5 mg tablet Take 1 tablet by mouth once daily. Problem List As Of Date 08/26/2022 Noted Resolved Hypertension [I10] Primary osteoarthritis of left hip [M16.12] 10/21/2015 History of total hip replacement [Z96.649] 12/04/2015 S/P hip replacement [Z96.649] 01/22/2016 Encounter Status:Closed by JEANETH ESCOBAR on 08/26/22 [facility] GUY HOLLOWAY ([id number]) 1965 M Date Time Provider Department 08/24/22 ROBERT KAHN During your visit today, we recorded the following information about you: Allyson Ellis Pss 08/24/2022 4:01 PM Signed Patient would like a call back from Dr Kahn regarding his up coming procedure and getting it scheduled. He did all the cardiology steps and he's like a call to discuss where the process it at. Please call and advise. Connie Bennett MA 08/25/2022 8:49 AM Signed Patient scheduled for provider phone call today. Francisca Carpenter 08/25/2022 2:30 PM Addendum Patient calling regarding below states no one called to tell him he was suppose to have appt today at 1PM Patient requesting call at [phone]. Please advise. Allergies As of Date: 08/24/2022 (No Known Allergies) Date Reviewed: 07/30/2022 Reviewed by: Robert Kahn MD - Fully Assessed Reason for Visit: Question [1327] Prescriptions as of 08/25/2022 - lisinopril (PRINIVIL) 20 mg tablet Take 1 tablet by mouth once daily. - amLODIPine (NORVASC) 5 mg tablet Take 1 tablet by mouth once daily. Problem List As Of Date 08/24/2022 Noted Resolved Hypertension [I10] Primary osteoarthritis of left hip [M16.12] 10/21/2015 History of total hip replacement [Z96.649] 12/04/2015 S/P hip replacement [Z96.649] 01/22/2016 Encounter Status:Closed by CONNIE BENNETT on 08/25/22 Normal [facility] Orders Onlyon 08-18-2022 Orders Only [id number] Guy Holloway 1965 Date Provider Department Center 08/18/2022 COURTNEY LAWSON [address] [facility] Family History Problem Relation Age of Onset Deep vein thrombosis Mother's Sister Family Status - Relation Status Age at Mother's Sister Normal [facility] Office Visiton 08-12-2022 Follow-up visit [id number] Guy Holloway Pool 1965 Date Provider Department Center 08/12/2022 COURTNEY LAWSON YOHANNES [facility] Family History Problem Relation Age of Onset Deep vein thrombosis Mother's Sister Family Status - Relation Status Age at Mother's Sister Level of Service:36138 CO OFFICE/OUTPATIENT NEW MODERATE MDM 45-59 MINUTES Reason for Visit and Comments: Pre-op Exam [680712] Hypertension [635905] Pulmonary embolism [Other] Normal [facility] CNOVon 07-30-2022 CNOV Office Visit ([facility] ) GUY HOLLOWAY ([id number]) 1965 Date Time Provider Department 07/30/22 9:30 AM ROBERT KAHN JOSE ANTONIO During your visit today, we recorded the following information about you: Weight Height 136.1 kg 1.854 m Robert Kahn MD 07/30/2022 12:19 PM Signed CONSULT ORTHOPAEDIC: HIP PRIMARY CARE PHYSICIAN: Danielle Hernandez MD, MD REFERRING PROVIDER: [facility] [address] [facility] [address] ASSESSMENT AND PLAN: Impression: Right Hip Severe Degenerative Osteoarthritis, Primary Guy Holloway has radiograph and physical exam evidence of degenerative joint disease and wishes to pursue surgery. This patient appears to have sufficient symptoms to warrant surgical intervention and is an appropriate candidate for right Primary Total Hip Arthroplasty as evidenced by six months of unsuccessful non-operative treatment as outlined in the HPI below and progressive symptoms. Progressive symptoms include: Pain impacting work Pain worsened by weight bearing. We had a lengthy discussion regarding the risk and benefit of surgery, the alternatives, limitations and personnel involved. These included but were not limited to infection, persistent pain, instability, nerve injury, blood clots, and medical complications. We also discussed the pre-operative course, surgery itself and rehabilitation. Natalie-operative blood management and transfusion issues were discussed, and options clearly outlined. The patient has consented to the use of the banked allogenic blood if medically necessary. The patient has elected to schedule surgery at this time or intends to call the office with a surgical date. Shared decision making occurred while obtaining informed consent. The patient will be scheduled for a pre-operative education class at which time they will have their nasal swab completed and will be given CHG cloths along with the verbal and written instructions for their use. Patient has been instructed and has been scheduled or will call to schedule attendence in one of the total joint perioperative classes offered prior to proceeding with KARTHIK.. The patient has been ordered: Nasal Swab Culture CONSULTS: Vascular Medicine Consult for history of DVT. 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 The problem began limiting activities 1-3 years ago. Currently the pain in the joint is rated at 8 out of 10 with minimal activity. The pain is constant and is located in the right hip. The pain is described as dull, mild, severe, and sharp. Relieving factors include no relieving factors. There is no specific incident that brought about this pain. Guy Holloway has no additional complaints. FUNCTIONAL STATUS: Take care of self, that is eating, dressing, bathing, using the toilet (2.75 METs) Walk a block or two on level ground (2.75 METs) Total Joint Arthroplasty: Risk Calculator Guy Holloway has a 14.92% chance of NOT returning home at discharge for a Primary total Hip replacement. Guy's estimated Length of Stay is 2 days. Guy's 30 day chance of readmission is 3.07%. Readmission Probability 3.07 % (within 30 days following surgery) Estimated LOS 2 days Discharge Disposition Probability D/C to Home 85.08 % D/C to SNF 14.92 % These calculations are based on the following factors: - 57 years of age - sex is male - BMI of 39.58 kg/m2 - [facility]xCare score of 100 - 0 hospitalizations in the last 12 months - no history of heart disease - no history of diabetes - no history of COPD - no history of anemia - preoperative ambulation: impaired home distances - 3 step(s) to enter home - bed location is on the first floor - bath location is on the first floor - caregiver is consistent - home is not more than 150 miles away - PROMIS-10 Mental Health T score not available - Marital status: PREVIOUS TREATMENTS: Medical: OTC NSAIDS for 3 Months or Greater (Ibuprofen and Tylenol / acetaminophen) REVIEW OF SYSTEMS: PAIN ASSESSMENT: See HPI. MUSCULOSKELETAL: See HPI. Risk Factors for Total Joint Arthroplasty (TJA) Obesity High Risk High: BMI > 40 Moderate: BMI 30-40 Normal: BMI < 30 Diabetes normal High: A1C > 8 Moderate: A1C 7-8 Normal: A1C < 7 Smoking normal High: Current smoker Normal: Non smoker (more content not included)... [facility] - Microbiology an d Antimicrobial susceptibilityon 07-30-2022 S. aureus and MRSA panel RANDALL+probe (Nose) Negative Negative [facility] STAPH AUREUS PCRon 2 S. aureus and MRSA panel RANDALL+probe (Nose) Normal Negative [facility] Comment on above: Order Comment: Speci men Type: SWAB OF INTERNAL NOSEOrdering Facility: [facility] Address: [address] [place] [address] Result Comment: Nega tive for Staphylococcus aureus by PCR. Negative for MRSA by PCR Performed By: #### S APCR ####[facility] LABCLIA [id number] [place] [address] [place] CNOVon 07-20-2022 CNOV Office Visit (LOORRM ) GUY HOLLOWAY ([id number]) 1965 M Date Time Provider Department 07/20/22 1:00 PM KUSHAL CHRISTIAN During your visit today, we recorded the following information about you: Weight Height 136.1 kg 1.829 m Kushal Christian II, MD 07/23/2022 11:21 AM Signed see dictated not e Kushal Christian II, MD Allergies As of Date: 07/20/2022 (No Known Allergies) Date Reviewed: 07/20/2022 Reviewed by: Kushal Christian MD - Fully Assessed Reason for Visit: Established Patient [175] Follow Up [171] Primary Visit Diagnosis:Primary osteoarthritis of left hip [M16.12] Other Visit Diagnoses:Primary osteoarthritis of right hip [M16.11] History of total left hip replacement [Z96.642] Order(s):XR HIP GENERAL 3V PELV/AP/LAT RIGHT [[id number]] Order #: [id number] FUTURE Prescriptions as of 07/23/2022 - lisinopril (PRINIVIL) 20 mg tablet Take 1 tablet by mouth once daily. - amLODIPine (NORVASC) 5 mg tablet Take 1 tablet by mouth once daily. Problem List As Of Date 07/20/2022 Noted Resolved Hypertension [I10] Primary osteoarthritis of left hip [M16.12] 10/21/2015 History of total hip replacement [Z96.649] 12/04/2015 S/P hip replacement [Z96.649] 01/22/2016 Encounter Status:Closed by KUSHAL CHRISTIAN II on 07/23/22 [facility] XR HIP 3V PELV+ AP/LAT RTon 07-20-2022 XR HIP 3V PELV+ AP/LAT RT * * *Final Report* * * DATE OF EXAM: Jul 20 2022 12:58PM LZX 5352 - XR HIP 3V PELV+ AP/LAT RT / PROCEDURE REASON: Pain * * * * Physician Interpretation * * * * HISTORY: Pain TECHNOLOGIST PROVIDED HISTORY (if applicable): chronic right hip pain TECHNIQUE: XR HIP 3V PELV+ AP/LAT RT RESULT: Pelvis and RIGHT hip 3 views. Comparison is 15. Interval progression in severe osteoarthritis with complete loss of the joint space, osteophytes and subchondral cysts. There is flattening of the articular surface superiorly. Status post remote LEFT total hip arthroplasty with incomplete visualization of the noncemented femoral stem. Visualized portions without signs of complication or failure. Sacroiliac joints and symphysis are preserved. IMPRESSION: SEVERE RIGHT HIP OSTEOARTHRITIS. 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 COMPARISON: None. ACCESSION NUMBER(S): [id number] ORDERING CLINICIAN: Shavon Espana TECHNIQUE: AP and lateral images upright of the lumbar spine were obtained. FINDINGS: There is minimal scoliosis. Alignment is otherwise unremarkable. There is disc space narrowing at L2-L3 and L5-S1. There is vertebral body endplate spurring at multiple levels. There is no fracture or bone destruction. Patient is status post left hip replacement. There is moderately severe osteoarthritis of the right hip. COMPARISON OF FINDINGS: IMPRESSION: DJD. Disc disease. Normal [facility] THORACIC SPINE 2 VIEWSon THORACIC SPINE 2 VIEWS STUDY: THORACIC SPINE 2 VIEWS; 05/05/2022 1:42 pm INDICATION: PAIN. COMPARISON: None. ACCESSION NUMBER(S): [id number] ORDERING CLINICIAN: Shavon Espana TECHNIQUE: AP and lateral upright images of the thoracic spine were obtained. FINDINGS: The alignment of spine is unremarkable. There is moderately severe degenerative change with vertebral body endplate spurring. There is no obvious fracture or bone destruction. COMPARISON OF FINDINGS: IMPRESSION: DJD. Normal [facility] PROF 14(COMP METB)on 022 Albumin [Mass/Vol] 3.5 g/dL Normal 3.4-5.0 [facility] Comment on above: Performed By: #### C MP #### [facility] [address] [place] [address] Dr. Kaylen Tejeda Albumin/Globulin [Mass ratio] 1.1 {ratio} Normal [facility] Comment on above: Performed By: #### C MP #### [facility] [address] [place] [address] Dr. Kaylen Tejeda ALP [Catalytic activity/Vol] 74 U/L Normal 46-116 [facility] Comment on above: Performed By: #### C MP #### [facility] [address] [place] [address] Dr. Kaylen Tejeda ALT [Catalytic activity/Vol] 40 U/L Normal 16-63 [facility] Comment on above: Performed By: #### C MP #### [facility] [address] [place] [address] Dr. Kaylen Tejeda Anion gap [Moles/Vol] 9.1 mmol/L Normal [facility] Comment on above: Performed By: #### C MP #### [facility] [address] [place] [address] Dr. Kaylen Tejeda AST [Catalytic activity/Vol] 20 U/L Normal 15-37 [facility] Comment on above: Performed By: #### C MP #### [facility] [address] [place] [address] Dr. Kaylen Tejeda Bilirubin [Mass/Vol] 0.7 mg/dL Normal 0.2-1.0 [facility] Comment on above: Performed By: #### C MP #### [facility] [address] [place] [address] Dr. Kaylen Tejeda Calcium [Mass/Vol] 8.5 mg/dL Normal 8.5-10.1 [facility] Comment on above: Performed By: #### C MP #### [facility] [address] [place] [address] Dr. Kaylen Tejeda Chloride [Moles/Vol] 107 mmol/L Normal 98-107 [facility] Comment on above: Performed By: #### C MP #### [facility] [address] [place] [address] Dr. Kaylen Tejeda CO2 [Moles/Vol] 27.9 mmol/L Normal 21.0-32.0 [facility] Comment on above: Performed By: #### C MP #### [facility] [address] [address] [address] Kaylen Tejeda Creatinine [Mass/Vol] 1.30 mg/dL Normal 0.70-1.30 [facility] Comment on above: Performed By: #### C MP #### [facility] [address] [place] [address] Dr. Kaylen Tejeda EGFR-AF IRISH >60 Normal >=60 [facility] Comment on above: Performed By: #### C MP #### [facility] [address] [place] [address] Dr. Kaylen Tejeda EGFR-NON AF IRISH 57 mL/min/1.73m2 Critically low >=60 [facility] Comment on above: Performed By: #### C MP #### [facility] [address] [place] [address] Dr. Kaylen Tejeda Globulin (S) [Mass/Vol] 3.1 g/dL Normal [facility] Comment on above: Performed By: #### C MP #### [facility] [address] [place] [address] Dr. Kaylen Tejeda Glucose [Mass/Vol] 124 mg/dL Critically high 74-106 [facility] Comment on above: Performed By: #### C MP #### [facility] [address] [place] [address] Dr. Kaylen Tejeda Potassium [Moles/Vol] 4.0 mmol/L Normal 3.5-5.1 [facility] Comment on above: Performed By: #### C MP #### [facility] [address] [place] [address] Dr. Kaylen Tejeda Protein [Mass/Vol] 6.6 g/dL Normal 6.4-8.2 [facility] Comment on above: Performed By: #### C MP #### [facility] [address] [address] [address] Kaylen Tejeda Sodium [Moles/Vol] 140 mmol/L Normal 136-145 [facility] Comment on above: Performed By: #### C MP #### [facility] [address] [address] [address] Kaylen Tejeda Urea nitrogen [Mass/Vol] 22.0 mg/dL Critically high 7.0-18.0 [facility] Comment on above: Performed By: #### C MP #### [facility] [address] [address] [address] Kaylen Tejeda Urea nitrogen/Creatinine [Mass ratio] 16.9 mg/mg Normal [facility] Comment on above: Performed By: #### C MP #### [facility] [address] [place] [address] Dr. Kaylen Tejeda CARDIAC KENDAL ADMITon 022 CK [Catalytic activity/Vol] 446 U/L Critically high 39-308 [facility] Comment on above: Performed By: #### C MP, ALB #### [facility] [address] [place] [address] Dr. Kaylen Tejeda CK.MB [Mass/Vol] 5.05 ng/mL Critically high <=3.60 [facility] Comment on above: Performed By: #### C MP, ALB #### [facility] [address] [place] [address] Dr. Kaylen Tejeda HSTROP 8.4 pg/mL Normal 4.0-76.1 [facility] Comment on above: Result Comment: CUT- OFF POINTS HAVE BEEN ESTABLISHED BASED ON THE FOURTH UNIVERSAL DEFINITIONS OF MYOCARDIAL INFARCTION. THE UPPER REFERENCE LIMIT (URL) OF TROPONIN, DEFINED THE 99TH PERCENTILE OF cTnI DISTRIBUTION IN A REFERENCE POPULATION, HAS BEEN CONFIRMED THE DECISION THRESHOLD FOR WI DIAGNOSIS. Performed By: #### C MP, ALB #### [facility] [address] [place] [address] Dr. Kaylen Tejeda ALY 110 ng/mL Critically high 16-[address] [facility] Comment on above: Performed By: #### C MP, ALB #### [facility] [address] [address] [address] Kaylen Tejeda CBC AUTO DIFFon 03-24-2022 BASO # 0.1 103/ul Normal 0.0-0.1 [facility] Comment on above: Performed By: #### C BC #### [facility] [address] [address] [address] Kaylen Tejeda Basophils/100 WBC (Bld) 0.9 % Normal 0.2-2.0 [facility] Comment on above: Performed By: #### C BC #### [facility] [address] [address] [address] Kaylen Tejeda EO # 0.2 103/ul Normal 0.0-0.7 [facility] Comment on above: Performed By: #### C BC #### [facility] [address] [address] [address] Kaylen Tejeda Eosinophils/100 WBC (Bld) 2.2 % Normal 0.9-7.0 [facility] Comment on above: Performed By: #### C BC #### [facility] [address] [address] [address] Kaylen Tejeda Erythrocyte distribution width (RBC) [Ratio] 13.8 % Normal 11.0-15.0 [facility] Comment on above: Performed By: #### C BC #### [facility] [address] [place] [address] Dr. Kaylen Tejeda Hematocrit (Bld) [Volume fraction] 46.1 % Normal 42.0-54.0 [facility] Comment on above: Performed By: #### C BC #### [facility] [address] [place] [address] Dr. Kaylen Tejeda Hemoglobin (Bld) [Mass/Vol] 15.7 g/dL Normal 14.0-18.0 [facility] Comment on above: Performed By: #### C BC #### [facility] [address] [address] [address] Kaylen Tejeda IG # 0.05 10e3/ul Critically high 0.00-0.03 [facility] Comment on above: Performed By: #### C BC #### [facility] [address] [place] [address] Dr. Kaylen Tejeda IG % 0.6 % Critically high 0.0-0.[address] [facility] Comment on above: Performed By: #### C BC #### [facility] [address] [place] [address] Dr. Kaylen Tejeda LYMPH # 2.6 103/ul Normal 1.2-3.8 [facility] Comment on above: Performed By: #### C BC #### [facility] [address] [place] [address] Dr. Kaylen Tejeda Lymphocytes/100 WBC (Bld) 30.4 % Normal 20.5-60.0 [facility] Comment on above: Performed By: #### C BC #### [facility] [address] [place] [address] Dr. Kaylen Tejeda MANUAL DIFF REQ NO Normal [facility] Comment on above: Performed By: #### C BC #### [facility] [address] [place] [address] Dr. Kaylen Tejeda MCH (RBC) [Entitic mass] 29.8 pg Normal 25.9-34.0 [facility] Comment on above: Performed By: #### C BC #### [facility] [address] [place] [address] Dr. Kaylen Tejeda MCHC (RBC) [Mass/Vol] 34.1 g/dL Normal 29.9-35.2 [facility] Comment on above: Performed By: #### C BC #### [facility] [address] [place] [address] Dr. Kaylen Tejeda MCV (RBC) [Entitic vol] 87.5 fL Normal 80.0-94.0 [facility] Comment on above: Performed By: #### C BC #### [facility] [address] [place] [address] Dr. Kaylen Tejeda MONO # 0.9 103/ul Critically high 0.3-0.[address] [facility] Comment on above: Performed By: #### C BC #### [facility] [address] [address] [address] Kaylen Tejeda Monocytes/100 WBC (Bld) 10.3 % Normal 1.7-12.0 [facility] Comment on above: Performed By: #### C BC #### [facility] [address] [address] [address] Kaylen Tejeda NEUT # 4.8 103/ul Normal 1.4-6.5 [facility] Comment on above: Performed By: #### C BC #### [facility] [address] [address] [address] Kaylen Tejeda Neutrophils/100 WBC (Bld) 55.6 % Normal 43.0-75.0 [facility] Comment on above: Performed By: #### C BC #### [facility] [address] [place] [address] Dr. Kaylen Tejeda Platelet mean volume (Bld) [Entitic vol] 10.2 fL Normal 9.5-13.5 [facility] Comment on above: Performed By: #### C BC #### [facility] [address] [address] [address] Kaylen Tejeda PLT 206 103/ul Normal 150-450 [facility] Comment on above: Performed By: #### C BC #### [facility] [address] [place] [address] Dr. Kaylen Tejeda RBC 5.27 106/ul Normal 4.70-6.10 [facility] Comment on above: Performed By: #### C BC #### [facility] [address] [place] [address] Dr. Kaylen Tejeda WBC 8.6 103/ul Normal 4.0-11.0 [facility] Comment on above: Performed By: #### C BC #### [facility] [address] [place] [address] ABD/PELVIS WO CONon 03-24 CT ABD/PELVIS WO CON EXAMINATION: CT ABD/PELVIS WO CON, 03/24/2022 6:50 PM MDT HISTORY: CALCULUS OF KIDNEY COMPARISON: None. TECHNIQUE: CT scan of the abdomen and pelvis was performed without IV contrast. CT dose reduction technique was used, including Automated Exposure Control. FINDINGS: Guest Services Coordinator: No pertinent findings, which are not already discussed below. Tubes/lines/drains: None. CHEST: Lungs: Clear. Cardiac and vascular: No cardiomegaly or significant pericardial effusion. ABDOMEN: Liver: Hepatic steatosis. Gallbladder and Biliary Tree: Cholecystectomy. Spleen: Unremarkable. Pancreas: Unremarkable. Adrenal Glands: Unremarkable. Kidneys, Ureters, Bladder: No urolithiasis. No hydronephrosis or hydroureterosis. Unremarkable bladder. Minimal bilaterally symmetric perinephric stranding. Gastrointestinal: Colonic diverticulosis. Along the right parailiac region and somewhat close proximity to the sigmoid, there is a thin peripherally hyperdense, centrally fat-containing ovoid focus measuring approximately 1.5 cm. No mural thickening or inflammatory changes. No dilated loops of small or large bowel. Normal appendix. Reproductive organ(s): Unremarkable. Lymphatic: No concerning retroperitoneal, mesenteric, or inguinal adenopathy. Vessels: Minimal atherosclerotic calcifications.. BONES AND SOFT TISSUE: Bones: No acute fracture. No concerning osseous lesions. Thin sclerotic horizontal line through the L1 vertebral body without associated endplate abnormality, favored to be developmental/benign. L4 vertebral body hemangioma. Degenerative changes of the spine. Left total hip arthroplasty. Severe right hip osteoarthritis. Soft Tissue: Small fat-containing umbilical hernia.. IMPRESSION: 1. No acute intra-abdominal/pelvic findings. Possible right pelvic focus of epiploic appendicitis. 2. Degenerative changes of the thoracolumbar spine without acute fracture. 3. No nephrolithiasis or evidence of recently passed stone. 4. Hepatic steatosis. 5. Colonic diverticulosis without evidence for diverticulitis. Electronically authenticated by: LIZ MONTILLA Date: 2022-03-24 21:57 Normal [facility] BNPon 02-13-2022 Natriuretic peptide B (Bld) [Mass/Vol] 83.0 pg/mL Normal <=900.0 [facility] Comment on above: Performed By: #### B BACK ORDER CLERK, CMP, T7, TSH #### [facility] [address] [address] [address] Kaylen Tejeda CBC AUTO DIFFon 02-13-2022 BASO # 0.1 103/ul Normal 0.0-0.1 [facility] Comment on above: Performed By: #### C BC #### [facility] [address] [place] [address] Dr. Kaylen Tejeda Basophils/100 WBC (Bld) 0.9 % Normal 0.2-2.0 [facility] Comment on above: Performed By: #### C BC #### [facility] [address] [place] [address] Dr. Kaylen Tejeda EO # 0.1 103/ul Normal 0.0-0.7 [facility] Comment on above: Performed By: #### C BC #### [facility] [address] [place] [address] Dr. Kaylen Tejeda Eosinophils/100 WBC (Bld) 1.9 % Normal 0.9-7.0 [facility] Comment on above: Performed By: #### C BC #### [facility] [address] [place] [address] Dr. Kaylen Tejeda Erythrocyte distribution width (RBC) [Ratio] 13.5 % Normal 11.0-15.0 [facility] Comment on above: Performed By: #### C BC #### [facility] [address] [place] [address] Dr. Kaylen Tejeda Hematocrit (Bld) [Volume fraction] 45.5 % Normal 42.0-54.0 [facility] Comment on above: Performed By: #### C BC #### [facility] [address] [place] [address] Dr. Kaylen Tejeda Hemoglobin (Bld) [Mass/Vol] 15.8 g/dL Normal 14.0-18.0 [facility] Comment on above: Performed By: #### C BC #### [facility] [address] [place] [address] Dr. Kaylen Tejeda IG # 0.03 10e3/ul Normal 0.00-0.03 [facility] Comment on above: Performed By: #### C BC #### [facility] [address] [place] [address] Dr. Kaylen Tejeda IG % 0.4 % Normal 0.0-0.5 [facility] Comment on above: Performed By: #### C BC #### [facility] [address] [place] [address] Dr. Kaylen Tejeda LYMPH # 1.8 103/ul Normal 1.2-3.8 [facility] Comment on above: Performed By: #### C BC #### [facility] [address] [place] [address] Dr. Kaylen Tejeda Lymphocytes/100 WBC (Bld) 27.3 % Normal 20.5-60.0 [facility] Comment on above: Performed By: #### C BC #### [facility] [address] [place] [address] Dr. Kaylen Tejeda MANUAL DIFF REQ NO Normal [facility] Comment on above: Performed By: #### C BC #### [facility] [address] [place] [address] Dr. Kaylen Tejeda MCH (RBC) [Entitic mass] 30.0 pg Normal 25.9-34.0 [facility] Comment on above: Performed By: #### C BC #### [facility] [address] [place] [address] Dr. Kaylen Tejeda MCHC (RBC) [Mass/Vol] 34.7 g/dL Normal 29.9-35.2 [facility] Comment on above: Performed By: #### C BC #### [facility] [address] [place] [address] Dr. Kaylen Tejeda MCV (RBC) [Entitic vol] 86.3 fL Normal 80.0-94.0 [facility] Comment on above: Performed By: #### C BC #### [facility] [address] [place] [address] Dr. Kaylen Tejeda MONO # 0.6 103/ul Normal 0.3-0.8 [facility] Comment on above: Performed By: #### C BC #### [facility] [address] [place] [address] Dr. Kaylen Tejeda Monocytes/100 WBC (Bld) 8.7 % Normal 1.7-12.0 [facility] Comment on above: Performed By: #### C BC #### [facility] [address] [place] [address] Dr. Kaylen Tejeda NEUT # 4.1 103/ul Normal 1.4-6.5 [facility] Comment on above: Performed By: #### C BC #### [facility] [address] [place] [address] Dr. Kaylen Tejeda Neutrophils/100 WBC (Bld) 60.8 % Normal 43.0-75.0 [facility] Comment on above: Performed By: #### C BC #### [facility] [address] [place] [address] Dr. Kaylen Tejeda Platelet mean volume (Bld) [Entitic vol] 9.4 fL Critically low 9.5-13.5 [facility] Comment on above: Performed By: #### C BC #### [facility] [address] [place] [address] Dr. Kaylen Tejeda PLT 169 103/ul Normal 150-450 [facility] Comment on above: Performed By: #### C BC #### [facility] [address] [place] [address] Dr. Kaylen Tejeda RBC 5.27 106/ul Normal 4.70-6.10 [facility] Comment on above: Performed By: #### C BC #### [facility] [address] [place] [address] Dr. Kaylen Tejeda WBC 6.7 103/ul Normal 4.0-11.0 [facility] Comment on above: Performed By: #### C BC #### [facility] [address] [place] [address] Dr. Kaylen Tejeda FREE THYROXINE INDEX T7on FTI 2.81 Normal 1.30-4.50 [facility] Comment on above: Performed By: #### B BACK ORDER CLERK, CMP, T7, TSH #### [facility] [address] [place] [address] Dr. Kaylen Tejeda T3U 33.0 % Normal 33.0-40.0 [facility] Comment on above: Performed By: #### B BACK ORDER CLERK, CMP, T7, TSH #### [facility] [address] [place] [address] Dr. Kaylen Tejeda T4 [Mass/Vol] 8.50 ug/dL Normal 4.50-12.10 [facility] Comment on above: Performed By: #### B BACK ORDER CLERK, CMP, T7, TSH #### [facility] [address] [place] [address] Dr. Kaylen Tejeda PROF 14(COMP METB)on 022 Albumin [Mass/Vol] 3.9 g/dL Normal 3.4-5.0 [facility] Comment on above: Performed By: #### B BACK ORDER CLERK, CMP, T7, TSH #### [facility] [address] [place] [address] Dr. Kaylen Tejeda Albumin/Globulin [Mass ratio] 1.1 {ratio} Normal [facility] Comment on above: Performed By: #### B BACK ORDER CLERK, CMP, T7, TSH #### [facility] [address] [place] [address] Dr. Kaylen Tejeda ALP [Catalytic activity/Vol] 78 U/L Normal 46-116 [facility] Comment on above: Performed By: #### B BACK ORDER CLERK, CMP, T7, TSH #### [facility] [address] [place] [address] Dr. Kaylen Tejeda ALT [Catalytic activity/Vol] 54 U/L Normal 16-63 [facility] Comment on above: Performed By: #### B BACK ORDER CLERK, CMP, T7, TSH #### [facility] [address] [place] [address] Dr. Kaylen Tejeda Anion gap [Moles/Vol] 10.9 mmol/L Normal [facility] Comment on above: Performed By: #### B BACK ORDER CLERK, CMP, T7, TSH #### [facility] [address] [place] [address] Dr. Kaylen Tejeda AST [Catalytic activity/Vol] 32 U/L Normal 15-37 [facility] Comment on above: Performed By: #### B BACK ORDER CLERK, CMP, T7, TSH #### [facility] [address] [place] [address] Dr. Kaylen Tjeeda Bilirubin [Mass/Vol] 1.6 mg/dL Critically high 0.2-1.0 [facility] Comment on above: Performed By: #### B BACK ORDER CLERK, CMP, T7, TSH #### [facility] [address] [place] [address] Dr. Kaylen Tejeda Calcium [Mass/Vol] 9.1 mg/dL Normal 8.5-10.1 [facility] Comment on above: Performed By: #### B BACK ORDER CLERK, CMP, T7, TSH #### [facility] [address] [address] [address] Kaylen Tejeda Chloride [Moles/Vol] 102 mmol/L Normal 98-107 [facility] Comment on above: Performed By: #### B BACK ORDER CLERK, CMP, T7, TSH #### [facility] [address] [place] [address] Dr. Kaylen Tejeda CO2 [Moles/Vol] 29.0 mmol/L Normal 21.0-32.0 [facility] Comment on above: Performed By: #### B BACK ORDER CLERK, CMP, T7, TSH #### [facility] [address] [place] [address] Dr. Kaylen Tejeda Creatinine [Mass/Vol] 1.04 mg/dL Normal 0.70-1.30 [facility] Comment on above: Performed By: #### B BACK ORDER CLERK, CMP, T7, TSH #### [facility] [address] [place] [address] Dr. Kaylen Tejeda EGFR-AF IRISH >60 Normal >=60 [facility] Comment on above: Performed By: #### B BACK ORDER CLERK, CMP, T7, TSH #### [facility] [address] [place] [address] Dr. Kaylen Tejeda EGFR-NON AF IRISH >60 Normal >=60 [facility] Comment on above: Performed By: #### B BACK ORDER CLERK, CMP, T7, TSH #### [facility] [address] [place] [address] Dr. Kaylen Tejeda Globulin (S) [Mass/Vol] 3.5 g/dL Normal [facility] Comment on above: Performed By: #### B BACK ORDER CLERK, CMP, T7, TSH #### [facility] [address] [place] [address] Dr. Kaylen Tejeda Glucose [Mass/Vol] 116 mg/dL Critically high 74-106 T [facility] Comment on above: Performed By: #### B BACK ORDER CLERK, CMP, T7, TSH #### [facility] [address] [place] [address] Dr. Kaylen Tejeda Potassium [Moles/Vol] 3.9 mmol/L Normal 3.5-5.1 [facility] Comment on above: Performed By: #### B BACK ORDER CLERK, CMP, T7, TSH #### [facility] [address] [place] [address] Dr. Kaylen Tejeda Protein [Mass/Vol] 7.4 g/dL Normal 6.4-8.2 [facility] Comment on above: Performed By: #### B BACK ORDER CLERK, CMP, T7, TSH #### [facility] [address] [place] [address] Dr. Kaylen Tejeda Sodium [Moles/Vol] 138 mmol/L Normal 136-145 [facility] Comment on above: Performed By: #### B BACK ORDER CLERK, CMP, T7, TSH #### [facility] [address] [place] [address] Dr. Kaylen Tejeda Urea nitrogen [Mass/Vol] 11.0 mg/dL Normal 7.0-18.0 [facility] Comment on above: Performed By: #### B BACK ORDER CLERK, CMP, T7, TSH #### [facility] [address] [place] [address] Dr. Kaylen Tejeda Urea nitrogen/Creatinine [Mass ratio] 10.6 mg/mg Normal [facility] Comment on above: Performed By: #### B BACK ORDER CLERK, CMP, T7, TSH #### [facility] [address] [place] [address] Dr. Kaylen Tejeda TSHon 02-13-2022 TSH 1.140 uIU/mL Normal 0.358-3.740 [facility] Comment on above: Performed By: #### B BACK ORDER CLERK, CMP, T7, TSH #### [facility] [address] [place] [address] [address] Kaylen Tejeda TSH RANGE SEE BELOW Normal [facility] Comment on above: Result Comment: <0.3 4 UIU/ml HYPERTHYROID 0.34-5.60 UIU/ml EUTHYROID >5.60 UIU/ml HYPOTHYROID Performed By: #### B BACK ORDER CLERK, CMP, T7, TSH #### [facility] [address] [place], [place] [address] Dr. Kaylen Tejeda Activated partial thrombopla stin time (aPTT) in platelet poor plasma by coagulation aOrdered By: Brendon Mcnamara on 02-12-2022 aPTT Coag (PPP) [Time] 32.3 s 25.1-36.5 [facility] Albumin [Mass/volume] in Ser um or PlasmaOrdered By: Brendon Mcnamara on 02-12-2022 Albumin [Mass/Vol] 3.9 g/dL 3.2-5.5 [facility] Basophils Auto (Bld) [#/Vol] Ordered By: Brendon Mcnamara on 02-12-2022 Basophils (Bld) [#/Vol] 0.0 10*3/uL 0.0-0.2 [facility] Basophils/100 WBC Auto (Bld) Ordered By: Brendon Mcnamara on 02-12-2022 Basophils/100 WBC (Bld) 0.8 % [facility] Blood hemoglobin measurement (mass/volume)Ordered By: Brendon Mcnamara on 02-12-2022 Hemoglobin (Bld) [Mass/Vol] 15.5 g/dL 13.0-17.0 [facility] Blood leukocytes automated c ount (number/volume)Ordered By: Brendon Mcnamara on 02-12-2022 WBC (Bld) [#/Vol] 5.9 10*3/uL 4.5-11.0 [facility] CT angio [place]ston 02-12-2022 CT angio chest [place] [id number] CT Scan Report Signed Patient: Guy Holloway MR#: [id number] : 1965 Acct:[id number] Age/Sex: 56 / M ADM Date: 02/12/22 Loc: ER Room: Type: [facility] ER Attending Dr: Ordering Provider: Brendon Mcnamara DO Date of Service: 02/12/22 CT/CT angio chest: r/o dissection, lightheaded, back pain, sob. Copies to: Brendon Mcnamara DO CTA chest 02/12/2022. CLINICAL DATA: Chest pain. Shortness of breath. TECHNIQUE: Intravenous contrast-enhanced CT angiography of the chest was performed. Axial, sagittal, coronal, and 3-dimensional reconstructions were created and reviewed. This CT exam was performed using one or more of the following dose reduction techniques: Automated exposure control, adjustment of the mA and/or kV according to patient size, or use of iterative reconstruction technique. COMPARISON: None. FINDINGS: The heart is enlarged. The thoracic aorta appears unremarkable. No definite pulmonary embolus is identified on the right or left, however, evaluation of the lower lungs is limited by patient respiratory motion. There is a mildly enlarged subcarinal lymph node. No other mediastinal or hilar lymphadenopathy is seen. There is a very small hiatal hernia. The central airways appear unremarkable. There are findings related to a history of granulomatous disease. No pulmonary consolidation or collapse is identified. No pleural effusion is seen. The thoracic spine demonstrates degenerative changes and mild curvature. No chest wall abnormality is noted. The imaged upper abdomen appears unremarkable. The gallbladder is surgically absent. CT/CT angio chest IMPRESSION: 1. Cardiomegaly. 2. Unremarkable thoracic aorta. 3. No definite pulmonary embolism but somewhat limited exam as described. 4. Mildly enlarged subcarinal lymph node. 5. Very small hiatal hernia. Impression dictated by: Tiffanie Murillo Jr., M.D.02/12/2022 2:52 PM Dictation Location: [place] [address] Transcribed By: [facility] 02/12/22 1452 Dictated By: Tiffanie Murillo Jr, MD 02/12/22 1441 Signed By: 02/12/22 1452 Normal [facility] Complete Blood Count Auto Di ffon 02-12-2022 Basophils (Bld) [#/Vol] 0.0 10*3/uL Normal 0.0-0.2 [facility] Comment on above: Result Comment: PERF ORMED BY: [place] [address] PATHOLOGIST PROFESSOR OF FLORICULTURE KAIA KENDRICK M.D. Performed By: #### C MP, PT, PTT, CK, CKMB, HS TROP, CBC #### [address] Basophils/100 WBC (Bld) 0.8 % Normal . [facility] Comment on above: Performed By: #### C MP, PT, PTT, CK, CKMB, HS TROP, CBC #### [address] Eosinophils (Bld) [#/Vol] 0.1 10*3/uL Normal 0.0-0.45 [facility] Comment on above: Performed By: #### C MP, PT, PTT, CK, CKMB, HS TROP, CBC #### [address] Eosinophils/100 WBC (Bld) 2.4 % Normal . [facility] Comment on above: Performed By: #### C MP, PT, PTT, CK, CKMB, HS TROP, CBC #### [address] Erythrocyte distribution width (RBC) [Ratio] 14.9 % High 12.0-14.8 [facility] Comment on above: Performed By: #### C MP, PT, PTT, CK, CKMB, HS TROP, CBC #### [address] Hematocrit (Bld) [Volume fraction] 44.4 % Normal 38.8-50.0 [facility] Comment on above: Performed By: #### C MP, PT, PTT, CK, CKMB, HS TROP, CBC #### [address] Hemoglobin (Bld) [Mass/Vol] 15.5 g/dL Normal 13.0-17.0 [facility] Comment on above: Performed By: #### C MP, PT, PTT, CK, CKMB, HS TROP, CBC #### [address] Lymphocytes (Bld) [#/Vol] 1.4 10*3/uL Normal 1.00-4.8 [facility] Comment on above: Performed By: #### C MP, PT, PTT, CK, CKMB, HS TROP, CBC #### [address] Lymphocytes/100 WBC (Bld) 23.8 % Normal . [facility] Comment on above: Performed By: #### C MP, PT, PTT, CK, CKMB, HS TROP, CBC #### [address] MCH (RBC) [Entitic mass] 29.6 pg Normal 27.5-35.2 [facility] Comment on above: Performed By: #### C MP, PT, PTT, CK, CKMB, HS TROP, CBC #### [address] MCV (RBC) [Entitic vol] 85.1 fL Normal 83.5-101 [facility] Comment on above: Performed By: #### C MP, PT, PTT, CK, CKMB, HS TROP, CBC #### [address] Mean Corpuscular HGB Conc 34.8 g/dL Normal 32.5-35.6 [facility] Comment on above: Performed By: #### C MP, PT, PTT, CK, CKMB, HS TROP, CBC #### [address] Monocytes (Bld) [#/Vol] 0.7 10*3/uL Normal 0.0-0.8 [facility] Comment on above: Performed By: #### C MP, PT, PTT, CK, CKMB, HS TROP, CBC #### [address] Monocytes/100 WBC (Bld) 11.8 % Normal . [facility] Comment on above: Performed By: #### C MP, PT, PTT, CK, CKMB, HS TROP, CBC #### [facility] [address] Neutrophils (Bld) [#/Vol] 3.6 10*3/uL Normal 1.8-7.7 [facility] Comment on above: Performed By: #### C MP, PT, PTT, CK, CKMB, HS TROP, CBC #### [facility] [address] Neutrophils/100 WBC (Bld) 61.2 % Normal . [facility] Comment on above: Performed By: #### C MP, PT, PTT, CK, CKMB, HS TROP, CBC #### [facility] [address] Nucleated RBC/100 WBC (Bld) [Ratio] 0.3 % Normal 0-0.5 [facility] Comment on above: Performed By: #### C MP, PT, PTT, CK, CKMB, HS TROP, CBC #### [facility] [address] Platelet mean volume (Bld) [Entitic vol] 8.2 fL Normal 6.6-10.1 [facility] Comment on above: Performed By: #### C MP, PT, PTT, CK, CKMB, HS TROP, CBC #### [facility] [address] Platelets (Bld) [#/Vol] 167 10*3/uL Normal 150-450 [facility] Comment on above: Performed By: #### C MP, PT, PTT, CK, CKMB, HS TROP, CBC #### [facility] [address] RBC (Bld) [#/Vol] 5.22 10*6/uL Normal 3.90-5.60 [facility] Comment on above: Performed By: #### C MP, PT, PTT, CK, CKMB, HS TROP, CBC #### [address] WBC (Bld) [#/Vol] 5.9 10*3/uL Normal 4.5-11.0 [facility] Comment on above: Performed By: #### C MP, PT, PTT, CK, CKMB, HS TROP, CBC #### [facility] [address] Comprehensive Metabolic Pane corie 02-12-2022 Albumin [Mass/Vol] 3.9 g/dL Normal 3.2-5.5 [facility] Comment on above: Performed By: #### C MP, PT, PTT, CK, CKMB, HS TROP, CBC #### [facility] [address] Albumin/Globulin [Mass ratio] 1.5 {ratio} Normal [facility] Comment on above: Performed By: #### C MP, PT, PTT, CK, CKMB, HS TROP, CBC #### [facility] [address] ALP [Catalytic activity/Vol] 64 U/L Normal 32-92 [facility] Comment on above: Performed By: #### C MP, PT, PTT, CK, CKMB, HS TROP, CBC #### [facility] [address] ALT [Catalytic activity/Vol] 39 U/L Normal 10-60 [facility] Comment on above: Performed By: #### C MP, PT, PTT, CK, CKMB, HS TROP, CBC #### [facility] [address] AST [Catalytic activity/Vol] 32 U/L Normal 10-42 [facility] Comment on above: Performed By: #### C MP, PT, PTT, CK, CKMB, HS TROP, CBC #### [facility] [address] Bilirubin [Mass/Vol] 1.6 mg/dL High 0.3-1.2 [facility] Comment on above: Result Comment: Samp les from patients who have taken Naproxen have shown spurious elevation in Total Bilirubin levels. A metabolite of Naproxen, O-desmethylnaproxen, has been shown to interfere with the Jendayamiik-Grof method for measuring Total Bilirubin. Performed By: #### C MP, PT, PTT, CK, CKMB, HS TROP, CBC #### [address] Calcium [Mass/Vol] 9.1 mg/dL Normal 8.2-10.2 [facility] Comment on above: Performed By: #### C MP, PT, PTT, CK, CKMB, HS TROP, CBC #### [address] Chloride [Moles/Vol] 103 mmol/L Normal 95-114 [facility] Comment on above: Performed By: #### C MP, PT, PTT, CK, CKMB, HS TROP, CBC #### [address] CO2 [Moles/Vol] 23.1 mmol/L Normal 22.0-30.0 [facility] Comment on above: Performed By: #### C MP, PT, PTT, CK, CKMB, HS TROP, CBC #### [address] Creatinine [Mass/Vol] 1.03 mg/dL Normal 0.64-1.27 [facility] Comment on above: Performed By: #### C MP, PT, PTT, CK, CKMB, HS TROP, CBC #### [address] Creatinine Clr Calc Pharmacy 112.27 [facility] Comment on above: Result Comment: PERF ORMED BY: [place] [address] PATHOLOGIST PROFESSOR OF FLORICULTURE KAIA KENDRICK M.D. Performed By: #### C MP, PT, PTT, CK, CKMB, HS TROP, CBC #### [address] Estimated GFR ( Puneet > 60 [facility] Comment on above: Result Comment: GFR estimated reference range: According to KDOQI guidelines, <60 ml/min/1.73m2 is sufficient to diagnose a patient with chronic kidney disease. Performed By: #### C MP, PT, PTT, CK, CKMB, HS TROP, CBC #### [facility] [address] Estimated GFR (Non- Am > 60 Normal [facility] Comment on above: Performed By: #### C MP, PT, PTT, CK, CKMB, HS TROP, CBC #### [facility] [address] Globulin (S) [Mass/Vol] 2.6 g/dL Normal [facility] Comment on above: Performed By: #### C MP, PT, PTT, CK, CKMB, HS TROP, CBC #### [address] Glucose [Mass/Vol] 79 mg/dL Normal 70-100 [facility] Comment on above: Result Comment: [facility] Glucose Reference Range is dependent on time and content of last meal. Glucose of more than 200 mg/dL in a nonstressed, ambulatory subject supports the diagnosis of Diabetes Mellitus. ADA recommended reference range Performed By: #### C MP, PT, PTT, CK, CKMB, HS TROP, CBC #### [address] Potassium [Moles/Vol] 3.9 mmol/L Normal 3.5-5.1 [facility] Comment on above: Performed By: #### C MP, PT, PTT, CK, CKMB, HS TROP, CBC #### [address] Protein [Mass/Vol] 6.5 g/dL Normal 6.1-7.9 [facility] Comment on above: Performed By: #### C MP, PT, PTT, CK, CKMB, HS TROP, CBC #### [address] Sodium [Moles/Vol] 137 mmol/L Normal 136-146 [facility] Comment on above: Performed By: #### C MP, PT, PTT, CK, CKMB, HS TROP, CBC #### [address] [place] [address] [place] Urea nitrogen [Mass/Vol] 10 mg/dL Normal 06-26 [facility] Comment on above: Performed By: #### C MP, PT, PTT, CK, CKMB, HS TROP, CBC #### [facility] [address] Creatine Kinaseon 02-12-2022 CK [Catalytic activity/Vol] 380 U/L High [facility] Comment on above: Performed By: #### C MP, PT, PTT, CK, CKMB, HS TROP, CBC #### [facility] [address] Creatine kinase [Enzymatic a ctivity/volume] in Serum or PlasmaOrdered By: Brendon Mcnamara on 02-12-2022 CK [Catalytic activity/Vol] 380 U/L [facility] Creatinine Kinase MBon 02-12 CK.MB [Mass/Vol] 5.7 ng/mL Normal 0.6-6.3 [facility] Comment on above: Performed By: #### C MP, PT, PTT, CK, CKMB, HS TROP, CBC #### [address] CKMB Relative Index 1.5 % Normal 0.00-2.50 [facility] Comment on above: Performed By: #### C MP, PT, PTT, CK, CKMB, HS TROP, CBC #### [address] Creatinine and Glomerular fi ltration rate.predicted panel (S/P/Bld)Ordered By: Brendon Mcnamara on 02-12-2022 Creatinine [Mass/Vol] 1.03 mg/dL 0.64-1.27 [facility] ECG 12 lead ECGon 02-12-2022 ECG 12 lead ECG [facility] Main [place] [address] [place] [address] Electrocardiograph Report Signed Patient: Guy Holloway MR#: [id number] : 1965 Acct:[id number] Age/Sex: 56 / M ADM Date: 02/12/22 Loc: ER Room: Type: [facility] ER Attending Dr: Ordering Provider: Brendon Mcnamara DO Date of Service: 02/12/2209/24/1106 ECG/ECG 12 lead ECG: Dizziness Copies to: Test Reason : Blood Pressure : / mmHG Vent. Rate : 071 BPM Atrial Rate : 071 BPM P-R Int : 162 ms QRS Dur : 080 ms QT Int : 410 ms P-R-T Axes : 035 019 036 degrees QTc Int : 445 ms Normal sinus rhythm Normal ECG No previous ECGs available Confirmed by Brendon Mcnamara DO ([id number]) on 02/12/2022 2:55:30 PM Referred By: Electronically Signed By:Brendon Mcnamara DO Transcribed By: MUS Signed By Brendon Mcnamara DO 02/12 1455 Normal [facility] Eosinophils Auto (Bld) [#/Vo l]Ordered By: Brendon Mcnamara on 02-12-2022 Eosinophils (Bld) [#/Vol] 0.1 10*3/uL 0.0-0.45 [facility] Eosinophils/100 WBC Auto (Bl d)Ordered By: Brendon Mcnamara on 02-12-2022 Eosinophils/100 WBC (Bld) 2.4 % [facility] Erythrocyte distribution wid th Auto (RBC) [Ratio]Ordered By: Brendon Mcnamara on 02-12-2022 Erythrocyte distribution width (RBC) [Ratio] 14.9 % 12.0-14.8 [facility] Estimated glomerular filtrat ion rate (GFR) non- AmericanOrdered By: Brendon Mcnamara on 02-12-2022 GFR/1.73 sq M.predicted among non-blacks MDRD (S/P/Bld) [Vol rate/Area] > 60 mL/Min [facility] Globulin Calc (S) [Mass/Vol] Ordered By: Brendno Mcnamara on 02-12-2022 Globulin (S) [Mass/Vol] 2.6 g/dL [facility] Hematocrit Auto (Bld) [Volum e fraction]Ordered By: Brendon Mcnamara on 02-12-2022 Hematocrit (Bld) [Volume fraction] 44.4 % 38.8-50.0 [facility] - CoagulationOrde red By: Brendon Mcnamara on 02-12-2022 PT Coag (PPP) [Time] 14.2 s 9.0-12.9 [facility] - Hematology and Cell countsOrdered By: Brendon Mcnamara on 02-12-2022 Nucleated RBC/100 WBC (Bld) [Ratio] 0.3 % 0-0.5 [facility] Lymphocytes Auto (Bld) [#/Vo l]Ordered By: Brendon Mcnamara on 02-12-2022 Lymphocytes (Bld) [#/Vol] 1.4 10*3/uL 1.00-4.8 [facility] Lymphocytes/100 WBC Auto (Bl d)Ordered By: Brendon Mcnamara on 02-12-2022 Lymphocytes/100 WBC (Bld) 23.8 % [facility] MCH Auto (RBC) [Entitic mass ]Ordered By: Brendon Mcnamara on 02-12-2022 MCH (RBC) [Entitic mass] 29.6 pg 27.5-35.2 [facility] MCHC Auto (RBC) [Mass/Vol]Or dered By: Brendon Mcnamara on 02-12-2022 MCHC (RBC) [Mass/Vol] 34.8 g/dL 32.5-35.6 [facility] MCV Auto (RBC) [Entitic vol] Ordered By: Brendon Mcnamara on 02-12-2022 MCV (RBC) [Entitic vol] 85.1 fL 83.5-101 [facility] Monocytes Auto (Bld) [#/Vol] Ordered By: Brendon Mcnamara on 02-12-2022 Monocytes (Bld) [#/Vol] 0.7 10*3/uL 0.0-0.8 [facility] Monocytes/100 WBC Auto (Bld) Ordered By: Brendon Mcnamara on 02-12-2022 Monocytes/100 WBC (Bld) 11.8 % [facility] Neutrophils Auto (Bld) [#/Vo l]Ordered By: Brendon Mcnamara on 02-12-2022 Neutrophils (Bld) [#/Vol] 3.6 10*3/uL 1.8-7.7 [facility] Neutrophils/100 WBC Auto (Bl d)Ordered By: Brendon Mcnamara on 02-12-2022 Neutrophils/100 WBC (Bld) 61.2 % [facility] No Panel InformationOrdered By: Brendon Mcnamara on 02-12-2022 Estimated GFR () > 60 mL/Min [facility] Comment on above: GFR estimated refere nce range: According to KDOQI guidelines, <60 ml/min/1.73m2 is sufficient to diagnose a patient with chronic kidney disease. Pharmacy Creatinine Clearance (Chem 112.27 [facility] Partial Thromboplastin Timeo n 02-12-2022 aPTT Coag (Bld) [Time] 32.3 s Normal 25.1-36.5 [facility] Comment on above: Result Comment: PERF ORMED BY: [place] [address] PATHOLOGIST PROFESSOR OF FLORICULTURE KAIA KENDRICK M.D. Performed By: #### C MP, PT, PTT, CK, CKMB, HS TROP, CBC #### [facility] [address] Platelet mean volume Auto (B ld) [Entitic vol]Ordered By: Brendon Mcnamara on 02-12-2022 Platelet mean volume (Bld) [Entitic vol] 8.2 fL 6.6-10.1 [facility] Platelet poor plasma interna tional normalized ratio (INR) by coagulation assay (relatOrdered By: Brendon Mcnamara on 02-12-2022 INR Coag (PPP) [Relative time] 1.3 {INR} [facility] Comment on above: INR Therapeutic Rang e A) Pre- and Peroperative OAT started two weeks before surgery. NOT HIP SURGERY: 1.5 - 2.5 HIP SURGERY: 2 - 3 B) Primary and secondary prevention of venous THROMBOSIS: 2 - 3 C) Active venous thrombosis, pulmonary embolism and prevention of recurrent venous thrombosis: 2 - 3 D) Prevention of arterial thromboembolism including patients with mechanical heart valves: 3 - 4.5 Platelets Auto (Bld) [#/Vol] Ordered By: Brendon Mcnamara on 02-12-2022 Platelets (Bld) [#/Vol] 167 10*3/uL 150-450 [facility] Protein [Mass/volume] in Ser um or PlasmaOrdered By: Brendon Mcnamara on 02-12-2022 Protein [Mass/Vol] 6.5 g/dL 6.1-7.9 [facility] Prothrombin Time INRon 02-12 INR Coag (PPP) [Relative time] 1.3 {INR} Normal [facility] Comment on above: Result Comment: INR Therapeutic Range A) Pre- and Peroperative OAT started two weeks before surgery. NOT HIP SURGERY: 1.5 - 2.5 HIP SURGERY: 2 - 3 B) Primary and secondary prevention of venous THROMBOSIS: 2 - 3 C) Active venous thrombosis, pulmonary embolism and prevention of recurrent venous thrombosis: 2 - 3 D) Prevention of arterial thromboembolism including patients with mechanical heart valves: 3 - 4.5 Performed By: #### C MP, PT, PTT, CK, CKMB, HS TROP, CBC #### [facility] [address] PT Coag (PPP) [Time] 14.2 s High 9.0-12.9 [facility] Comment on above: Performed By: #### C MP, PT, PTT, CK, CKMB, HS TROP, CBC #### [facility] [address] RBC Auto (Bld) [#/Vol]Ordere d By: Brendon Mcnamara on 02-12-2022 RBC (Bld) [#/Vol] 5.22 10*6/uL 3.90-5.60 [facility] Serum or plasma alanine mccabe otransferase measurement without P-5'-P (enzymatic activiOrdered By: Brendon Mcnamara on 02-12-2022 ALT No additional P-5'-P [Catalytic activity/Vol] 39 U/L 10-60 [facility] Serum or plasma albumin/glob ulin mass ratioOrdered By: Brendon Mcnamara on 02-12-2022 Albumin/Globulin [Mass ratio] 1.5 {ratio} [facility] Serum or plasma alkaline skyler sphatase measurement (enzymatic activity/volume)Ordered By: Brendon Mcnamara on 02-12-2022 ALP [Catalytic activity/Vol] 64 U/L 32-92 [facility] Serum or plasma aspartate am inotransferase measurement (enzymatic activity/volume)Ordered By: Brendon Mcnamara on 02-12-2022 AST [Catalytic activity/Vol] 32 U/L 10-42 [facility] Serum or plasma calcium adilene urement (mass/volume)Ordered By: Brendon Mcnamara on 02-12-2022 Calcium [Mass/Vol] 9.1 mg/dL 8.2-10.2 [facility] Serum or plasma chloride david surement (moles/volume)Ordered By: Brendon Mcnamara on 02-12-2022 Chloride [Moles/Vol] 103 mmol/L 95-114 [facility] Serum or plasma creatine kin ase MB (CKMB)/total creatine kinase (CK) ratio by calculaOrdered By: Brendon Mcnamara on 02-12-2022 CK.MB Calc [Catalytic fraction] 1.5 % 0.00-2.50 [facility] Serum or plasma creatine kin ase MB measurement (mass/volume)Ordered By: Brendon Mcnamara on 02-12-2022 CK.MB [Mass/Vol] 5.7 ng/mL 0.6-6.3 [facility] Serum or plasma glucose adilene urement (mass/volume)Ordered By: Brendon Mcnamara on 02-12-2022 Glucose [Mass/Vol] 79 mg/dL 70-100 [facility] Comment on above: ADA recommended refe rence range Random Glucose Reference Range is dependent on time and content of last meal. Glucose of more than 200 mg/dL in a nonstressed, ambulatory subject supports the diagnosis of Diabetes Mellitus. Serum or plasma potassium me asurement (moles/volume)Ordered By: Brendon Mcnamara on 02-12-2022 Potassium [Moles/Vol] 3.9 mmol/L 3.5-5.1 [facility] Serum or plasma sodium measu rement (moles/volume)Ordered By: Brendon Mcnamara on 02-12-2022 Sodium [Moles/Vol] 137 mmol/L 136-146 [facility] Serum or plasma total biliru bin measurement (mass/volume)Ordered By: Brendon Mcnamara on 02-12-2022 Bilirubin [Mass/Vol] 1.6 mg/dL 0.3-1.2 [facility] Comment on above: Samples from patient s who have taken Naproxen have shown spurious elevation in Total Bilirubin levels. A metabolite of Naproxen, O-desmethylnaproxen, has been shown to interfere with the Félix-Lemuel method for measuring Total Bilirubin. Serum or plasma total carbon dioxide measurement (moles/volume)Ordered By: Brendon Mcnamara on 02-12-2022 CO2 [Moles/Vol] 23.1 mmol/L 22.0-30.0 [facility] Serum or plasma urea nitroge n measurement (mass/volume)Ordered By: Brendon Mcnamara on 02-12-2022 Urea nitrogen [Mass/Vol] 10 mg/dL 06-26 [facility] Troponin I High Sensitivityo n 02-12-2022 Troponin I High Sensitivity 6 pg/mL Normal 0-20 [facility] Comment on above: Result Comment: PERF ORMED BY: [place] [address] PATHOLOGIST PROFESSOR OF FLORICULTURE KAIA KENDRICK M.D. Performed By: #### C MP, PT, PTT, CK, CKMB, HS TROP, CBC #### [facility] [address] [place] [address] [place] Troponin I High Sensitivity 6 pg/mL Normal 0-20 [facility] Comment on above: Result Comment: PERF ORMED BY: [place] [address] PATHOLOGIST PROFESSOR OF FLORICULTURE KAIA KENDRICK M.D. Performed By: #### H S TROP #### [facility] [address] [place] [address] [place] Troponin I.cardiac [Mass/vol ume] in Serum or Plasma by High sensitivity methodOrdered By: Brendon Mcnamara on 02-12-2022 Troponin I.cardiac High sensitivity method [Mass/Vol] 6 pg/mL 0-20 [facility] Social History Date Type Detail Facility Start: 09-09-2022 Alcohol Comment monthly maybe [facility] Start: 09-09-2022 End: 10-31-2022 History of Social function [facility] Start: 09-09-2022 End: 10-31-2022 Tobacco use panel [facility] Start: 07-10-2022 End: 08-31-2022 Exposure to SARS-CoV-2 (event) Not sure [facility] Start: 10-14-2015 End: 02-12-2022 Tobacco smoking status NHIS Never smoked tobacco (finding) [facility] Start: 01-22-2016 End: 09-09-2022 Alcohol intake Current drinker of alcohol (finding) [facility] Start: 10-14-2015 Tobacco use and exposure Smokeless tobacco non-user [facility] Start: 10-14-2015 Alcohol Comment monthly [facility] Start: 1965 Sex Assigned At Male F [facility] Start: 1965 Sex Assigned At Not on file C [facility] National Score (1-100), lower number is lower risk 82 [facility] Vital Signs Date Time Vital Sign Value Performing Clinician Faci lity 07-30-2022 09:28-0400 Body height 185.4 cm Robert Kahn MD Work Phone: [facility] 07-30-2022 09:28-0400 Body weight 136.08 kg oRbert Kahn MD Work Phone: [facility] 07-23-2022 10:45-0400 Body height 182.9 cm Kushal Christian MD Work Phone: [facility] 07-23-2022 10:45-0400 Body weight 136.08 kg Kushal Christian MD Work Phone: [facility] 02-12-2022 15:10-0400 Diastolic blood pressure 106 mm[Hg] MD Danielle Hernandez Work Phone: [facility] 02-12-2022 15:10-0400 Heart rate 65 /min MD Danielle Hernandez Work Phone: [facility] 02-12-2022 15:10-0400 Respiratory rate 18 /min MD Danielle Hernandez Work Phone: [facility] 02-12-2022 15:10-0400 SaO2% (BldA) [Mass fraction] 99 % MD Danielle Hernandez Work Phone: [facility] 02-12-2022 15:10-0400 Systolic blood pressure 167 mm[Hg] MD Danielle Hernandez Work Phone: [facility] 02-12-2022 10:41-0400 Body height 182.88 cm MD Danielle Hernandez Work Phone: [facility] 02-12-2022 10:41-0400 Body mass index (BMI) [Ratio] 41.1 kg/m2 MD Danielle Hernandez Work Phone: [facility] 02-12-2022 10:41-0400 Body temperature 98.3 [degF] MD Danielle Hernandez Work Phone: [facility] 02-12-2022 10:41-0400 Body weight 137.43 kg MD Danielle Hernandez Work Phone: [facility] Clinical Notes 07-20-2022 to 12-15-2022 Robert Kahn MD - 12/15/2022 3:39 PM Gimla Gay, RT(R) - 12/15/2022 2:15 PM Shantel Kahn MD - 11/10/2022 3:37 PM Daniella Burch RT(R) - 11/10/2022 3:15 PM ESTPatient Instructions Note Date & Type Note Facility 12-15-2022 Note HNO ID: [id number] Author: Robert Kahn MD Service: ? Author Type: Physician Type: Progress Notes Filed: 12/15/2022 3:42 PM Note Text: CC: SP Right KARTHIK Concerns: none intends to RTW PE: Hip wound clean dry and intact No erythema drainage or fluctiance DF PF EHL intact Dp2+ No edema Calf nontender ROM 0 to 110 degrees Imaging: iw satisfactory AP: SP Right KARTHIK neuro vasc intact 1) WBAT 2) DVT prophy complete 3) PT 4) FU 52 weeks 5) Medication changes aware of dental prophy [facility] 12-15-2022 Note HNO ID: [id number] Author: Gilma Chavez, RT(R) Service: Radiology Author Type: Technologist Type: Progress Notes Filed: 12/15/2022 1:54 PM Note Text: Radiology Service Progress Note PATIENT NAME: Guy Holloway DATE OF SERVICE: December 15, 2022 TIME: 1:54 PM PATIENT IDENTITY VERIFICATION COMPLETED USING TWO (2) IDENTIFIERS: Name and Date of confirmed by patient verbally. FALL SCREENING: Has the patient had 2 falls in the last year or 1 fall with injury or currently using an Ambulatory Assistive Device (Walker, Cane, Wheelchair, Crutches, etc.)? No PATIENT GENDER DATA: Male PATIENT RELEVANT IMPLANT DATA REVIEWED: Not Applicable RADIOLOGY DEPARTMENT: General X-ray: Exam(s) Completed: Pelvis X-Ray: Pelvis with Hip Right PERIPHERAL IV DATA: Not applicable SIGNED BY: Gilma Chavez RT(R) December 15, 2022 1:54 PM [facility] 12-15-2022 History of Present illness Narrative CC: SP Right KARTHIK Concerns: none intends to RTW PE: Hip wound clean dry and intact No erythema drainage or fluctiance DF PF EHL intact Dp2+ No edema Calf nontender ROM 0 to 110 degrees Imaging: iw satisfactory AP: SP Right KARTHIK neuro vasc intact 1) WBAT 2) DVT prophy complete 3) PT 4) FU 52 weeks 5) Medication changes aware of dental prophy documented in this encounter [facility] 12-15-2022 History of Present illness Narrative Radiology Service Progress Note PATIENT NAME: Guy Holloway DATE OF SERVICE: December 15, 2022 TIME: 1:54 PM PATIENT IDENTITY VERIFICATION COMPLETED USING TWO (2) IDENTIFIERS: Name and Date of confirmed by patient verbally. FALL SCREENING: Has the patient had 2 falls in the last year or 1 fall with injury or currently using an Ambulatory Assistive Device (Walker, Cane, Wheelchair, Crutches, etc.)? No PATIENT GENDER DATA: Male PATIENT RELEVANT IMPLANT DATA REVIEWED: Not Applicable RADIOLOGY DEPARTMENT: General X-ray: Exam(s) Completed: Pelvis X-Ray: Pelvis with Hip Right PERIPHERAL IV DATA: Not applicable SIGNED BY: RT Frandy(R) December 15, 2022 1:54 PM documented in this encounter [facility] 11-10-2022 Note HNO ID: [id number] Author: Robert Kahn MD Service: ? Author Type: Physician Type: Progress Notes Filed: 11/10/2022 3:39 PM Note Text: CC: SP Right KARTHIK Concerns: feels an impulse or click when walking PE: Hip wound clean dry and intact No erythema drainage or fluctiance DF PF EHL intact Dp2+ No edema Calf nontender ROM 0 to 100 degrees Imaging: is satisfactory AP: SP Right KARTHIK neuro vasc intact 1) WBAT 2) DVT prophy complete 3) PT 4) FU 4-5 weeks 5) Medication changes none Discussed that this appears to be bursitis The impulse over the gr troch is palpable can consider CSI at month 3. [facility] 11-10-2022 Note HNO ID: [id number] Author: RT Eloy(Jacy) Service: Radiology Author Type: Endoscopy Nurse Type: Progress Notes Filed: 11/10/2022 3:15 PM Note Text: Radiology Service Progress Note PATIENT NAME: Guy Holloway DATE OF SERVICE: November 10, 2022 TIME: 3:14 PM PATIENT IDENTITY VERIFICATION COMPLETED USING TWO (2) IDENTIFIERS: Name and Date of confirmed by patient verbally. FALL SCREENING: Has the patient had 2 falls in the last year or 1 fall with injury or currently using an Ambulatory Assistive Device (Walker, Cane, Wheelchair, Crutches, etc.)? Yes, Patient High Risk for Falls What interventions were put in place to prevent falls during this visit? Instructed Patient to Call for Help if Needed and Increased Observations by Caregivers PATIENT GENDER DATA: Male PATIENT RELEVANT IMPLANT DATA REVIEWED: Not Applicable RADIOLOGY DEPARTMENT: General X-ray: Exam(s) Completed: Pelvis X-Ray: Pelvis with Hip Right PERIPHERAL IV DATA: Not applicable SIGNED BY: RT Farooq/RT Eloy(R) November 10, 2022 3:14 PM [facility] 11-10-2022 History of Present illness Narrative CC: SP Right KARTHIK Concerns: feels an impulse or click when walking PE: Hip wound clean dry and intact No erythema drainage or fluctiance DF PF EHL intact Dp2+ No edema Calf nontender ROM 0 to 100 degrees Imaging: is satisfactory AP: SP Right KARTHIK neuro vasc intact 1) WBAT 2) DVT prophy complete 3) PT 4) FU 4-5 weeks 5) Medication changes none Discussed that this appears to be bursitis The impulse over the gr troch is palpable can consider CSI at month 3. documented in this encounter [facility] 11-10-2022 History of Present illness Narrative Radiology Service Progress Note PATIENT NAME: Guy Holloway DATE OF SERVICE: November 10, 2022 TIME: 3:14 PM PATIENT IDENTITY VERIFICATION COMPLETED USING TWO (2) IDENTIFIERS: Name and Date of confirmed by patient verbally. FALL SCREENING: Has the patient had 2 falls in the last year or 1 fall with injury or currently using an Ambulatory Assistive Device (Walker, Cane, Wheelchair, Crutches, etc.)? Yes, Patient High Risk for Falls What interventions were put in place to prevent falls during this visit? Instructed Patient to Call for Help if Needed and Increased Observations by Caregivers PATIENT GENDER DATA: Male PATIENT RELEVANT IMPLANT DATA REVIEWED: Not Applicable RADIOLOGY DEPARTMENT: General X-ray: Exam(s) Completed: Pelvis X-Ray: Pelvis with Hip Right PERIPHERAL IV DATA: Not applicable SIGNED BY: RT Farooq/RT Eloy(R) November 10, 2022 3:14 PM documented in this encounter [facility] 10-09-2022 Note HNO ID: [id number] Author: Jacob Singleton PA-C Service: ? Author Type: Physician Hospital Pharmacist Type: Progress Notes Filed: 10/09/2022 10:44 AM Note Text: CC: SP Right KARTHIK Concerns: none PE: Hip wound clean dry and intact No erythema drainage or fluctuance DF PF EHL intact Dp2+ No edema Calf nontender ROM 0 to 90 degrees Imaging: is satisfactory AP: SP Right KARTHIK neuro vasc intact 1) WBAT 2) DVT prophy Eliquis 5mg BID 3) Continue home PT, starting outpatient PT soon. PT order sent with patient 4) FU 4 weeks 5) discussed dental antibiotic prophy, prescription sent to pharmacy Jcaob Singleton PA-C [facility] 10-09-2022 Note HNO ID: [id number] Author: RT Juan Jose(R) Service: Radiology Author Type: Technologist Type: Progress Notes Filed: 10/09/2022 9:53 AM Note Text: Radiology Service Progress Note PATIENT NAME: Guy Holloway DATE OF SERVICE: October 09, 2022 TIME: 9:52 AM PATIENT IDENTITY VERIFICATION COMPLETED USING TWO (2) IDENTIFIERS: Name and Date of confirmed by patient verbally. FALL SCREENING: Has the patient had 2 falls in the last year or 1 fall with injury or currently using an Ambulatory Assistive Device (Walker, Cane, Wheelchair, Crutches, etc.)? Yes, Patient High Risk for Falls What interventions were put in place to prevent falls during this visit? Instructed Patient to Remain Seated (Not on Exam Table) Until Exam PATIENT GENDER DATA: Male PATIENT RELEVANT IMPLANT DATA REVIEWED: Not Applicable RADIOLOGY DEPARTMENT: General X-ray: Exam(s) Completed: Pelvis X-Ray: Pelvis with Hip Right PERIPHERAL IV DATA: Not applicable SIGNED BY: Gimla Chavez (RT) RT Juan Jose(R) October 09, 2022 9:52 AM [facility] 10-09-2022 History of Present illness Narrative CC: SP Right KARTHIK Concerns: none PE: Hip wound clean dry and intact No erythema drainage or fluctuance DF PF EHL intact Dp2+ No edema Calf nontender ROM 0 to 90 degrees Imaging: is satisfactory AP: SP Right KARTHIK neuro vasc intact 1) WBAT 2) DVT prophy Eliquis 5mg BID 3) Continue home PT, starting outpatient PT soon. PT order sent with patient 4) FU 4 weeks 5) discussed dental antibiotic prophy, prescription sent to pharmacy Jacob Singleton PA-C documented in this encounter [facility] 10-09-2022 History of Present illness Narrative Radiology Service Progress Note PATIENT NAME: Guy Holloway DATE OF SERVICE: October 09, 2022 TIME: 9:52 AM PATIENT IDENTITY VERIFICATION COMPLETED USING TWO (2) IDENTIFIERS: Name and Date of confirmed by patient verbally. FALL SCREENING: Has the patient had 2 falls in the last year or 1 fall with injury or currently using an Ambulatory Assistive Device (Walker, Cane, Wheelchair, Crutches, etc.)? Yes, Patient High Risk for Falls What interventions were put in place to prevent falls during this visit? Instructed Patient to Remain Seated (Not on Exam Table) Until Exam PATIENT GENDER DATA: Male PATIENT RELEVANT IMPLANT DATA REVIEWED: Not Applicable RADIOLOGY DEPARTMENT: General X-ray: Exam(s) Completed: Pelvis X-Ray: Pelvis with Hip Right PERIPHERAL IV DATA: Not applicable SIGNED BY: Gilma Chavez (RT) RT Juan Jose(R) October 09, 2022 9:52 AM documented in this encounter [facility] 09-24-2022 Note HNO ID: [id number] Author: Cheyanne Ray ([email or web address]) Service: ? Author Type: ? Type: Plan of Care Filed: 09/24/2022 3:48 PM Note Text: The following medications were delivered to the patient: Medication List START taking these medications X acetaminophen 500 mg tablet Commonly known as: TYLENOL Take 2 tablets by mouth every 8 hours. X docusate sodium 100 mg capsule Commonly known as: COLACE Take 1 capsule by mouth twice daily for 7 days. Notes to patient: As prescribed X oxyCODONE IR 5 mg immediate release tablet Commonly known as: ROXICODONE Take 1-2 tablets by mouth every 4-6 hours as needed for pain CHANGE how you take these medications X apixaban 2.5 mg tab(s) Commonly known as: ELIQUIS Take 1 tablet by mouth twice daily for 5 days. After 5 days resume your regular home does of 5mg twice daily. What changed: medication strength how much to take additional instructions CONTINUE taking these medications * hydroCHLOROthiazide 25 mg tablet Commonly known as: HYDRODIURIL, ESIDRIX * hydroCHLOROthiazide 25 mg tablet Commonly known as: HYDRODIURIL, ESIDRIX lisinopril 20 mg tablet Commonly known as: ZESTRIL, PRINIVIL metoprolol succinate ER 25 mg 24 hr tablet Commonly known as: TOPROL XL * This list has 2 medication(s) that are the same as other medications prescribed for you. Read the directions carefully, and ask your doctor or other care provider to review them with you. You might also be taking other medications not listed above. If you have questions about any of your other medications, talk to the person who prescribed them or your Primary Care Provider. Cheyanne Ray (Wallpaper Scraper) PAGER: yolanda September 24, 2022 3:47 PM [facility] 09-24-2022 Note HNO ID: [id number] Author: Goldie Rosas RN Service: Care Management Author Type: Registered Nurse Type: Care Mgt Progress Note Filed: 09/24/2022 2:01 PM Note Text: CARE MANAGEMENT DISCHARGE NOTE SERVICE DATE: 09/24/2022 SERVICE TIME: 2:00 PM LOS: 0 days Admission Date: 09/23/2022 DISCHARGE ARRANGEMENT (list agency and phone number) Discharge Arrangement: Home with Home Health CAREGIVER ASSESSMENT: Caregiver is ready, willing and able to meet the patient's needs as recommended by the inter-professional team:: No Caregiver needed Patient's transition needs and plan for meeting these needs: Outpatient PT ?Home PT HANDOFF COMMUNICATION: Handoff to: Primary Care Physician;Other Caregiver Primary Care Physician Name/Phone: Danielle Hernandez MD Other Caregiver Name/Phone: [facility] TRANSPORTATION ARRANGEMENTS: Transportation Arrangements: Car Discharge Information Row Name Admission (Discharged) from 09/23/[address] [facility] Agency [facility] SIGNATURE: Goldie Rosas RN PATIENT NAME: Guy Holloway DATE: September 24, 2022 TIME: 2:00 PM PAGER/CONTACT #: [phone] [facility] 09-24-2022 Note HNO ID: [id number] Author: Goldie Rosas RN Service: Care Management Author Type: Registered Nurse Type: Care Mgt Initial Assessment Filed: 09/24/2022 12:03 PM Note Text: CARE MANAGEMENT: ASSESSMENT AND DISCHARGE PLAN SERVICE DATE: September 24, 2022 SERVICE TIME: 12:00 PM PRIMARY CARE PHYSICIAN: Danielle Hernandez MD, MD Primary Contact: Extended Emergency Contact Information Primary Emergency Contact: Desiree Payton Mobile Relation: Mother ADMISSION STATUS: Extended Recovery Insurance Provider: [employer] PPO OOS NEEDS PRIOR TO DISCHARGE Needs Prior to Discharge: Ready for Discharge POTENTIAL TRANSITION PLANS Outpatient Therapy;Home OT/PT Patient's perception of need for this admission: hip replacement ADVANCE DIRECTIVES Current Advance Directive: None Horse Exerciser Attempted to Assist with AD Completion: Yes Action: Education Provided MS/BEHAVIOR Baseline Mental Status Prior to this Illness what was the patient's Baseline Mental Status?: Alert AND Oriented Prior to this illness, has anyone described the patient having any of the following behaviors?: Not Applicable Relationship of the informant to the patient:: Self READMISSION Last Discharge Date: 10/22/15 Is this Within the Past 30 days? From what level of care did patient present?: Home Last discharge within 30 days: No PATIENT SCREEN Patient/Child Specialist Stated Goals: To return home to life as it was Under the care of a PCP?: Yes, External Provider Provider Name: Danielle Hernandez MD Does the patient have transportation upon discharge?: Yes Use of any community resources?: No Does the patient have a stable and supportive living arrangement and home setting?: Yes Are there any potential risks or gaps identified by risk/functional/fall,etc. scores in the EMR?: No Any potential risks related to substance abuse and/or behavioral health?: No CAREGIVER ASSESSMENT Caregiver is ready, willing and able to meet the patient's needs as recommended by the inter-professional team:: No Caregiver needed Patient's transition needs and plan for meeting these needs: Outpatient PT ?Home PT FREEDOM OF CHOICE EXPLAINED: [facility] Choice Given: No (Pt states he has in home PT scheduled through [facility]. I called [facility]. They have him scheduled for Outpatient PT on 09/29 at 4 PM. patient aware and states he has a ride to appointment.) Are you interested in bedside delivery of your medications? Yes ASSESSMENT AND PLAN: Patient from home alone. Parents will stay with him. Patient has a walker. Pt states he has in home PT scheduled through [facility]. I called [facility]. They have him scheduled for Outpatient PT on 09/29 at 4 PM. Patient aware and states he has a ride to appointment. 12:05 Home care can accept and do a 09/29 SOC. Patient notified and knows to cancel his OP PT appointment. SIGNATURE: Goldie Rosas RN PATIENT NAME: Guy Holloway DATE: September 24, 2022 TIME: 11:59 AM CONTACT #: [phone] [facility] 09-23-2022 Note HNO ID: [id number] Author: Robert Kahn MD Service: Orthopaedic Surgery Author Type: Physician Type: Progress Notes Filed: 09/23/2022 6:18 PM Note Text: SP Rt KARTHIK DF PF EHL intact DP2+ No edema XR satisfactory AP SP Rt KARTHIK Neuro vasc intact WBAT Ancef Elequis starting tomorrow [facility] 09-23-2022 Note HNO ID: [id number] Author: Scott Watson APRN.ORCHARD MANAGER Service: ? Author Type: Nurse Correctional Case Records Supervisor Type: Anesthesia Procedure Notes Filed: 09/23/2022 9:30 AM Note Text: ANESTHESIOLOGY PROCEDURE NOTE Airway General Information Procedure Start Time/Medication Administration: 09/23/2022 8:51 AM Patient location during procedure: OR Timeout Performed Pre-procedure: timeout performed Consent Obtained: Yes Patient identity confirmed: arm band and patient Staffing ORCHARD MANAGER: Scott Watson APRN.ORCHARD MANAGER Performed by: ADILENE Indications and Patient Condition Indications for airway management: anesthesia Preoxygenated: yes anesthesia circuit Patient position: ramp Method: sleep Cricoid Pressure: No Manual In-Line Stabilization: No Difficult Mask: Yes (unable to mask with two people and red oral airway) Final Airway Details Final airway type: endotracheal airway Final Endotracheal Airway: ETT Cuffed: yes Successful intubation technique: video laryngoscopy Devices used: Glidescope and intubating stylet Endotracheal tube insertion site: oral Blade: Mateus Blade size: #4 ETT size (mm): 7.5 Measured from: lips Measurement (cm): 23 Placement verified by: chest auscultation and capnometry Cormack-Lehane Classification: grade I - full view of glottis Number of attempts at approach: 1 Failed airway: no Unrecognized esophageal intubation: no Airway not difficult Comments Difficult two person mask with oral airway. Recommend glidescope intubation. Grade 1 view with glidescope. SIGNATURE: Scott Watson APRN.CRNA PATIENT NAME: Guy Holloway DATE: September 23, 2022 TIME: 9:23 AM CSN: [id number] [facility] 09-14-2022 Nurse Note ORTHOPAEDIC SURGERY PRE-OP PATIENT Guy Holloway is a 57 year old male PROCEDURE: right Total Hip PROCEDURE DATE: 09/23/22 CHECKLIST: Informed Consent: Yes- In Press Play Quest: No Pre-op Skin Preparation Cloths & Instructions of Use given to patient: Reviewed with pt today during this phone encounter. Nasal Swab completed for patient: neg EDUCATION: READINESS TO LEARN COGNITIVE ABILITY: Alert and oriented MOTIVATION TO LEARN: Interested FAMILY SUPPORT: Unable to assess - Family not present INSTRUCTION PROVIDED TO: Patient FACTORS AFFECTING LEARNING: None PHYSICAL LIMITATIONS AFFECTING LEARNING: None ISSUES REVIEWED: EDUCATION TOPIC/ TEACHING POINTS: -Day of Surgery (see below) -Hospital Course -Incision Care -Home PT -Home pain Medication: Refill Protocol, Side Effects -Afterhours Number Given- page ortho resident online merchandising coordinator at [phone] METHOD OF INSTRUCTION: Individual instruction, Written instruction - handouts, and Verbal instruction PRE-OPERATIVE INSTRUCTIONS REVIEWED: -Arrival time/location -NPO after midnight -Advanced Directives -ID + insurance card -Bring to hospital: Bipap, Cpap, Non-skid shoes, hearing aids -Do not bring: Excessive money, valuables, jewelry, medications (unless instructed) -Stop NSAIDS 7 days prior to surgery -Stop Aspirin and herbal supplements 10-14 days prior -Reviewed patient handout instructions for Preop Skin Preparation POST-OPERATIVE INSTRUCTIONS: -Call office if questions/concerns -Afterhour for resident online merchandising coordinator INFECTION MANAGEMENT: -Signs and symptoms of an infection -Importance of contacting the physician MEDICATION SIDE EFFECTS: -Side effects associated with the medication that warrant a call to the physician WOUND CARE: -Correct procedure to perform wound care DISCHARGE PLAN: -Patient referred to rapid recovery program and [facility] of Choice was offered to Patient about Rehab facility/ SNF/ Home care. SUPPLEMENTAL MATERIAL GIVEN: Yes RISK FACTORS: History of DVT and Hypertension FOLLOW-UP PLAN: Patient instructed to call with any further issues If any questions or concerns arise before the surgery, the patient was instructed to call the office for assistance. If there are no further questions or issues, the patient will be seen the day of the procedure, prior to proceeding with surgery. Gilma Drew RN Patient in for Right Total Hip Arthroplasty with Dr. Kahn, medical consult per [facility]. Cardiac clearance needed at this time:No Dental clearance needed at this time?No Patient is identified by name and birthdate: Yes Allergies reviewed: Yes Medication- prescribed and OTC reviewed and updated: Yes Latex allergy: no Does the patient have a metal allergy? No Is the patient having any pain?: Yes: Location of pain is in the right hip. Pain Scale: 8 on a scale from 0-10 Pain Character: dull, mild, severe, and sharp Duration: (How long have you had the pain?) 1 years Frequency: (How often does the pain occur?) occurs daily Pt. instructed to stop meds per [facility] and will take the following meds per anesthesia guidelines per [facility] Anticoagulation therapy consisting of Eliquis pt has h/o dvt, toi hose, compression wraps, and exercise discussed with patient. Pt. has prescription drug coverage. Autologous donation discussed with patient, Pt will receive acid.. Patient lives with his family and plans to go home with OP-PT at [facility]. Patient has walker Yes , cane Yes , shower bench Yes elevated toilet seat No Patient is 295 lbs 0 oz and is Height (cm or in): 6'0 Guide to recovery, follow your pathway to recovery after joint replacement surgery materials given to patient prior to end of session. Pt. had no other questions or concerns at this time. Gilma Drew RN documented in this encounter [facility] 09-10-2022 Miscellaneous Notes I returned the patient's call regarding requested physical therapy order fax. Order was faxed to the patient's preferred therapy facility to begin the process for his upcoming hip surgery. Patient also requested a letter faxed to his employer stating date of surgery and estimated time off of 3 months. Letter faxed to [employer]-patient's employer. documented in this encounter [facility] 09-08-2022 Miscellaneous Notes LVM for patient to call with the name and phone number of facility he would like to go to for outpatient PT. documented in this encounter [facility] 08-25-2022 Note HNO ID: [id number] Author: Jacob Singleton PA-C Service: ? Author Type: Physician Hospital Pharmacist Type: Progress Notes Filed: 08/25/2022 4:05 PM Note Text: Called patient to discuss pre op questions. He consented for a right KARTHIK at his last office visit and consults were placed to vascular surgery or cardiology regarding his history of DVT following contralateral hip replacement. He was seen by Courtney Rosas NP and cleared for orthopedic surgery. I will notify our cardiology clinical nurse specialist that patient is ready to set a surgery date. I spent a total of 7 minutes on the date of the service which included preparing to see the patient, completing clinical documentation, and counseling and educating the patient/family/caregiver. Jacob Singleton PA-C [facility] 08-25-2022 History of Present illness Narrative Called patient to discuss pre op questions. He consented for a right KARTHIK at his last office visit and consults were placed to vascular surgery or cardiology regarding his history of DVT following contralateral hip replacement. He was seen by Courtney Rosas NP and cleared for orthopedic surgery. I will notify our cardiology clinical nurse specialist that patient is ready to set a surgery date. I spent a total of 7 minutes on the date of the service which included preparing to see the patient, completing clinical documentation, and counseling and educating the patient/family/caregiver. Jacob Singleton PA-C documented in this encounter [facility] 08-25-2022 Miscellaneous Notes Patient scheduled for provider phone call today. Patient would like a call back from Dr Kahn regarding his up coming procedure and getting it scheduled. He did all the cardiology steps and he's like a call to discuss where the process it at. Please call and advise. documented in this encounter [facility] 08-18-2022 Note Review of b/p trends at home- remains uncontrolled 139-163/ 75-93. Will add amlodipine 5 mg daily for HTN, staff to call pt and update and ask if he had BMP completed as prescribed at last visit. [facility] 08-12-2022 Note Remains on eliquis anticoagulation [facility] 08-12-2022 Note Remains on Eliquis anticoagulation per PCP [facility] 08-12-2022 Note Currently uncontroll ed in office- pt does not have a b/p cuff at home- states at work he has had b/p checked and was told it was fine Continue lisinopril 40 mg daily, toprol 25 mg daily and start hydrochlorothiazide 25 gm daily Repeat BMP in 1 week to monitor renal function. Prescription for automatic blood pressure given to patient and asked patient to take blood pressure twice a day once in the morning once in the afternoon record on a log, goal blood pressure is 130/80 or less and patient voiced understanding. Staff will call patient next week to review blood pressures [facility] 08-12-2022 Note RCRI- 0???points Class I Risk 3.9???% 30-day risk of , [place], or cardiac arrest EKG today sinus bradycardia heart rate 56 bpm otherwise normal no acute concerns Functional/aerobic capacity greater than 6 to 8 METS-patient has good functional capacity without any cardiovascular limiting symptoms Patient from a cardiology perspective may proceed with planned right hip surgery, he is a low risk for moderate risk orthopedic surgery. PCP manages his anticoagulation for history of DVT/PE. Please note previous left hip surgery he developed extensive DVT/PE. [facility] 08-12-2022 Note [facility] CARDIOLOGY PROGR ESS NOTE HPI New patient here to re-establish care. He also needs cleared for surgery. Denies chest pain and SOB. Has LE edema. He will be having a right hip replacement. Last labs and ECG were done in March 2022. Patient denies chest pain, shortness of breath, palpitations, orthopnea. He admits ankle swelling at times but states is no worse than usual and occurred after injury to left ankle and after the DVT to his right leg. States he is planning to have right hip surgery. 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 Admits if he had to walk up 1-2 flights of stairs or around the block shortness of breath or chest pain would not limit his activity just his hip pain. Review of Systems Cardiovascular: Positive for leg swelling. Musculoskeletal: Positive for joint swelling. Visit Vitals BP (!) 162/93 (BP Location: Left arm, Patient Position: Sitting) Pulse 60 Ht 1.829 m (6') Wt (!) 137 kg (301 lb) SpO2 95% BMI 40.82 kg/m??? Smoking Status Never BSA 2.64 m??? Medications: Current Outpatient Medications on File Prior to Visit Medication Sig Dispense Refill apixaban (Eliquis) 5 mg tablet Take 1 tablet twice a day by oral route for 30 days. lisinopril 40 mg tablet Take 40 mg by mouth in the morning. metoprolol succinate XL (Toprol-XL) 25 mg 24 hr tablet Take 25 mg by mouth in the morning. Do not crush or chew. tiZANidine (Zanaflex) 4 mg tablet Take 4 mg by mouth every 6 (six) hours if needed for muscle spasms. [DISCONTINUED] lisinopril 20 mg tablet Take 1 tablet every day by oral route for 30 days. No current facility-administered medications on file prior to visit. Physical Exam: Constitutional: Appearance: Normal appearance. Without apparent distress HENT: Head: Normocephalic and atraumatic. Nose: Nose normal. Mouth/Throat: Mouth: Mucous membranes are moist. Eyes: Extraocular Movements: Extraocular movements intact. Conjunctiva/sclera: Conjunctivae normal. Neck: Vascular: No JVD. Cardiovascular: Rate and Rhythm: Normal rate and regular rhythm. Pulses: Dorsalis pedis pulses are 3 on the right side and 3on the left side. Posterior tibial pulses are 3 on the right side and 3 on the left side. Heart sounds: Normal heart sounds, S1 normal and S2 normal. Pulmonary: Effort: Pulmonary effort is normal. Breath sounds: Normal breath sounds. Abdominal: General: Bowel sounds are normal. Palpations: Abdomen is soft. Musculoskeletal: General: Normal range of motion. Cervical back: Normal range of motion. Right lower leg: No edema. Left lower leg: No edema. Skin: General: Skin is warm and dry. Capillary Refill: Capillary refill takes less than 2 seconds. Neurological: General: No focal deficit present. Mental Status: She is alert and oriented to person, place, and time. Psychiatric: Mood and Affect: Mood normal. Behavior: Behavior normal. Thought Content: Thought content normal. Judgment: Judgment normal. Labs: Labs from 03/24/2022 reviewed CBC normal, renal function normal, liver function normal Last lab values have been reviewed CV Testing: No echocardiogram results found for the past 12 months Reviewed echocardiogram from 10/15/2016 LV systolic function normal, no valvular abnormalities no acute concerns Assessment/Plan: Pre-operative cardiovascular examination, high risk surgery RCRI- 0 points Class I Risk 3.9 % 30-day risk of , [place], or cardiac arrest EKG today sinus bradycardia heart rate 56 bpm otherwise normal no acute concerns Functional/aerobic capacity greater than 6 to 8 METS-patient has good functional capacity without any cardiovascular limiting symptoms Patient from a cardiology perspective may proceed with planned right hip surgery, he is a low risk for moderate risk orthopedic surgery. PCP manages his anticoagulation for history of DVT/PE. Please note previous left hip surgery he developed extensive DVT/PE. Hypertension Currently uncontrolled in office- pt does not have a b/p cuff at home- states at work he has had b/p checked and was told it was fine Continue lisinopril 40 mg daily, toprol 25 mg daily and start hydrochlorothiazide 25 gm daily Repeat BMP in 1 week to monitor renal function. Prescription for automatic blood pressure given to patient and asked patient to take blood pressure twice a day once in the morning once in the afternoon record on a log, goal blood pressure is 130/80 or less and patient voiced understanding. Staff will call patient next week to review blood pressures Pulmonary embolism (CMS/HCC) Remains on Eliquis anticoagulation per PCP Deep venous thrombosis (CMS/HCC) Remains on eliquis anticoagulation RTC 1-6 months [facility] 07-30-2022 Note HNO ID: [id number] Author: Robert Kahn MD Service: ? Author Type: Physician Type: Progress Notes Filed: 07/30/2022 12:19 PM Note Text: CONSULT ORTHOPAEDIC: HIP PRIMARY CARE PHYSICIAN: Danielle Hernandez MD, MD REFERRING PROVIDER: Kushal Christian [address] [facility] [address] ASSESSMENT AND PLAN: Impression: Right Hip Severe Degenerative Osteoarthritis, Primary Guy Holloway has radiograph and physical exam evidence of degenerative joint disease and wishes to pursue surgery. This patient appears to have sufficient symptoms to warrant surgical intervention and is an appropriate candidate for right Primary Total Hip Arthroplasty as evidenced by six months of unsuccessful non-operative treatment as outlined in the HPI below and progressive symptoms. Progressive symptoms include: Pain impacting work Pain worsened by weight bearing. We had a lengthy discussion regarding the risk and benefit of surgery, the alternatives, limitations and personnel involved. These included but were not limited to infection, persistent pain, instability, nerve injury, blood clots, and medical complications. We also discussed the pre-operative course, surgery itself and rehabilitation. Natalie-operative blood management and transfusion issues were discussed, and options clearly outlined. The patient has consented to the use of the banked allogenic blood if medically necessary. The patient has elected to schedule surgery at this time or intends to call the office with a surgical date. Shared decision making occurred while obtaining informed consent. The patient will be scheduled for a pre-operative education class at which time they will have their nasal swab completed and will be given CHG cloths along with the verbal and written instructions for their use. Patient has been instructed and has been scheduled or will call to schedule attendence in one of the total joint perioperative classes offered prior to proceeding with KARTHIK.. The patient has been ordered: Nasal Swab Culture CONSULTS: Vascular Medicine Consult for history of DVT. 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 The problem began limiting activities 1-3 years ago. Currently the pain in the joint is rated at 8 out of 10 with minimal activity. The pain is constant and is located in the right hip. The pain is described as dull, mild, severe, and sharp. Relieving factors include no relieving factors. There is no specific incident that brought about this pain. Guy Holloway has no additional complaints. FUNCTIONAL STATUS: Take care of self, that is eating, dressing, bathing, using the toilet (2.75 METs) Walk a block or two on level ground (2.75 METs) Total Joint Arthroplasty: Risk Calculator Guy Holloway has a 14.92% chance of NOT returning home at discharge for a Primary total Hip replacement. Guy's estimated Length of Stay is 2 days. Guy's 30 day chance of readmission is 3.07%. Readmission Probability 3.07 % (within 30 days following surgery) Estimated LOS 2 days Discharge Disposition Probability D/C to Home 85.08 % D/C to SNF 14.92 % These calculations are based on the following factors: - 57 years of age - sex is male - BMI of 39.58 kg/m2 - NarxCare score of 100 - 0 hospitalizations in the last 12 months - no history of heart disease - no history of diabetes - no history of COPD - no history of anemia - preoperative ambulation: impaired home distances - 3 step(s) to enter home - bed location is on the first floor - bath location is on the first floor - caregiver is consistent - home is not more than 150 miles away - PROMIS-10 Mental Health T score not available - Marital status: PREVIOUS TREATMENTS: Medical: OTC NSAIDS for 3 Months or Greater (Ibuprofen and Tylenol / acetaminophen) REVIEW OF SYSTEMS: PAIN ASSESSMENT: See HPI. MUSCULOSKELETAL: See HPI. Risk Factors for Total Joint Arthroplasty (TJA) Obesity High Risk High: BMI > 40 Moderate: BMI 30-40 Normal: BMI < 30 Diabetes normal High: A1C > 8 Moderate: A1C 7-8 Normal: A1C < 7 Smoking normal High: Current smoker Normal: Non smoker Anemia normal High: Hgb < 13 (men) N/A: Hgb >= 13 (men) Nutritional Status normal High: Alb<3.4, or prealb<15, or serum transferrin<200, or total lymphocyte count<1500 Normal: normal labs COPD normal High: dx o (more content not included)... [facility] 07-30-2022 Instructions Jacob Singleton PA-C - 07/30/2022 9:44 AM EDT Instructions for Blood Management Decreasing the need for blood transfusions after surgery can help your body heal faster and help your body fight infection better. Blood Management will check your blood and iron levels to see if you would benefit from having treatment to help increase your blood counts before your surgery. What do you need to do? 1. Go and have your labs (CBC, Ferritin, Iron Studies) drawn today or within the next three days at the nearest [facility] lab. If you would like, you can go today, following your appointment, to any of our outpatient labs. 2. If it is determined that you would benefit from treatment, someone from the Blood Management Department will call you. If we call you, we will then give further instructions for iron replacement. If you do not hear from Blood Management, your lab results were okay and you do not need additional iron replacement. Questions? Contact us: If you are having surgery at [facility] or If you are having surgery at [place], [place], [facility] , [place], [place], [place], [facility], or [facility] documented in this encounter [facility] 07-30-2022 History of Present illness Narrative CONSULT ORTHOPAEDIC: HIP PRIMARY CARE PHYSICIAN: Danielle Hernandez MD, MD REFERRING PROVIDER: Kushal Christian II [address] [facility] [address] ASSESSMENT & PLAN: Impression: Right Hip Severe Degenerative Osteoarthritis, Primary Guy Holloway has radiograph and physical exam evidence of degenerative joint disease and wishes to pursue surgery. This patient appears to have sufficient symptoms to warrant surgical intervention and is an appropriate candidate for right Primary Total Hip Arthroplasty as evidenced by six months of unsuccessful non-operative treatment as outlined in the HPI below and progressive symptoms. Progressive symptoms include: Pain impacting work Pain worsened by weight bearing. We had a lengthy discussion regarding the risk and benefit of surgery, the alternatives, limitations and personnel involved. These included but were not limited to infection, persistent pain, instability, nerve injury, blood clots, and medical complications. We also discussed the pre-operative course, surgery itself and rehabilitation. Natalie-operative blood management and transfusion issues were discussed, and options clearly outlined. The patient has consented to the use of the banked allogenic blood if medically necessary. The patient has elected to schedule surgery at this time or intends to call the office with a surgical date. Shared decision making occurred while obtaining informed consent. The patient will be scheduled for a pre-operative education class at which time they will have their nasal swab completed and will be given CHG cloths along with the verbal and written instructions for their use. Patient has been instructed and has been scheduled or will call to schedule attendence in one of the total joint perioperative classes offered prior to proceeding with KARTHIK.. The patient has been ordered: Nasal Swab Culture CONSULTS: Vascular Medicine Consult for history of DVT. 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 The problem began limiting activities 1-3 years ago. Currently the pain in the joint is rated at 8 out of 10 with minimal activity. The pain is constant and is located in the right hip. The pain is described as dull, mild, severe, and sharp. Relieving factors include no relieving factors. There is no specific incident that brought about this pain. Guy Holloway has no additional complaints. FUNCTIONAL STATUS: Take care of self, that is eating, dressing, bathing, using the toilet (2.75 METs) Walk a block or two on level ground (2.75 METs) Total Joint Arthroplasty: Risk Calculator Guy Holloway has a 14.92% chance of NOT returning home at discharge for a Primary total Hip replacement. Guy's estimated Length of Stay is 2 days. Guy's 30 day chance of readmission is 3.07%. Readmission Probability 3.07 % (within 30 days following surgery) Estimated LOS 2 days Discharge Disposition Probability D/C to Home 85.08 % D/C to SNF 14.92 % These calculations are based on the following factors: - 57 years of age - sex is male - BMI of 39.58 kg/m2 - NarxCare score of 100 - 0 hospitalizations in the last 12 months - no history of heart disease - no history of diabetes - no history of COPD - no history of anemia - preoperative ambulation: impaired home distances - 3 step(s) to enter home - bed location is on the first floor - bath location is on the first floor - caregiver is consistent - home is not more than 150 miles away - PROMIS-10 Mental Health T score not available - Marital status: PREVIOUS TREATMENTS: Medical: OTC NSAIDS for 3 Months or Greater (Ibuprofen and Tylenol / acetaminophen) REVIEW OF SYSTEMS: PAIN ASSESSMENT: See HPI. MUSCULOSKELETAL: See HPI. Risk Factors for Total Joint Arthroplasty (TJA) Obesity High Risk High: BMI > 40 Moderate: BMI 30-40 Normal: BMI < 30 Diabetes normal High: A1C > 8 Moderate: A1C 7-8 Normal: A1C < 7 Smoking normal High: Current smoker Normal: Non smoker Anemia normal High: Hgb < 13 (men) N/A: Hgb >= 13 (men) Nutritional Status normal High: Alb<3.4, or prealb<15, or serum transferrin<200, or total lymphocyte count<1500 Normal: normal labs COPD normal High: dx of COPD Normal: no dx of COPD MRSA normal High: dx of MRSA or positive lab test Normal: no MRSA CKD normal High: eGFR<60 Moderate: eGFR 60-89 Normal: eGFR>90 Hx of DVT / PE normal High: dx of DVT / PE Normal: no dx of DVT / PE Narcotics Use Moderate Risk High:NarxCare >=300 Moderate: 100-299 Normal: 0-99 KEIRY normal High: dx of KEIRY N/A: no dx of KEIRY Coagulation normal High:PT Sec>13, or PT INR>1.3, or APTT>32.4, or Plt ct<150k Moderate: on anticoag but none of the above Normal: none Obesity: Weight management and obesity medicine (bariatric) program recommended BMI Readings from Last 3 Encounters: 07/23/22 : 40.69 kg/m 11/13/15 : 35.94 kg/m 10/21/15 : 37.29 kg/m NarxCare score NARX Narcotics: 100 (07/30/2022 9:16 AM) Other Risk Factors Peripheral Vascular History PAST MEDICAL HISTORY Diagnosis Date Hypertension Osteoarthritis S/P hip replacement 01/22/2016 PAST SURGICAL HISTORY Procedure Laterality Date CHOLECYSTECTOMY 2004 PAST SURGICAL HISTORY OF knee arthrotomy FAMILY HISTORY Problem Relation Age of Onset other (cva [Other]) Maternal Aunt other (unknown [Other]) Father Social History Tobacco Use Smoking status: Never Smokeless tobacco: Never Substance Use Topics Alcohol use: Yes Comment: monthly ALLERGIES: Patient has no known allergies. MEDICATIONS: lisinopril (PRINIVIL) 20 mg tablet Take 1 tablet by mouth once daily. amLODIPine (NORVASC) 5 mg tablet Take 1 tablet by mouth once daily. PHYSICAL EXAM There were no vitals taken for this visit. All other systems deferred. GENERAL: Appears healthy, well-nourished, no deformities. HABITUS: BMI 39.58 GAIT: Antalgic to the right HIP EXAM: Right: ROM: Extension: Normal Flexion: 90 degrees Internal Rotation: 15 degrees External Rotation: 15 degrees Abduction: 30 degrees Adduction: 30 degrees Strength: Abduction 5/5 and Flexion 5/5 Palpation: tenderness to palpation of groin and lateral hip Log roll: painful. Straight leg raise: Negative Neurovascular Status: Sensation Intact and Moves foot and ankle up & down DATA: Diagnostic tests reviewed for today's visit: Right hip X-Ray: Severe degenerative changes The following conditions were addressed during the office visit today: History of DVT, on Adrienne Singleton PA-C Attending Note I have personally performed a face to face assessment of the patient and have reviewed the FLOR note. I performed a substantive portion of the visit including all aspects of the following. My barnett findings include: Exam is severe limp and flexion contracture Medical Decision Making I have reviewed the risks benefits and alternatives to surgery with the patient. The benefits include improvement in pain and improvement in walking. The risks of surgery include bleeding, infection, nerve damage, wearing out of the prosthesis, fracture, blood clots and dislocation. The leg length may be different. If a complication occurs additional treatments may be needed. Other additions or changes: Decision for major limb surgery with possible complication of mechanical failure: yes Signature: Robert Kahn MD Date: 07/30/2022 Time: 12:18 PM SIGNATURE: Robert Kahn MD PATIENT NAME: Guy Holloway DATE: July 30, 2022 TIME: 9:28 AM documented in this encounter [facility] 07-23-2022 Note HNO ID: [id number] Author: Kushal Christian MD Service: ? Author Type: Physician Type: Progress Notes Filed: 07/23/2022 11:21 AM Note Text: see dictated not e Kushal Christian II, MD [facility] 07-23-2022 History of Present illness Narrative see dictated not e Kushal Christian II, MD documented in this encounter [facility] 07-20-2022 Note HNO ID: [id number] Author: RT Tri(Jacy) Service: ? Author Type: Endoscopy Nurse Type: Progress Notes Filed: 07/20/2022 12:57 PM Note Text: Radiology Service Progress Note PATIENT NAME: Guy Holloway DATE OF SERVICE: July 20, 2022 TIME: 12:57 PM PATIENT IDENTITY VERIFICATION COMPLETED USING TWO (2) IDENTIFIERS: Name and Date of confirmed by patient verbally. FALL SCREENING: Has the patient had 2 falls in the last year or 1 fall with injury or currently using an Ambulatory Assistive Device (Walker, Cane, Wheelchair, Crutches, etc.)? No PATIENT GENDER DATA: Male PATIENT RELEVANT IMPLANT DATA REVIEWED: Not Applicable RADIOLOGY DEPARTMENT: General X-ray: Exam(s) Completed: Pelvis X-Ray: Pelvis with Hip Right PERIPHERAL IV DATA: Not applicable SIGNED BY: RT Tri(R) July 20, 2022 12:57 PM [facility] 07-20-2022 Note HNO ID: [id number] Author: Kushal Christian MD Service: Orthopaedic Surgery Author Type: Physician Type: Progress Notes Filed: 07/28/2022 9:32 AM Note Text: [facility] [address] [place], [place] [address] CLINIC NOTE Department of Orthopaedics - Oren Christian II, M.D. NAME: GUY HOLLOWAY [facility] NO.: [id number] DATE OF SERVICE: 07/20/2022 CHIEF COMPLAINT: Severe pain in right hip. WHEN: For the last few years. HOW: Insidious onset. WHERE: At home. PAST SURGICAL TREATMENT: Left THR, 10/21/2015. The patient states that he did well after his left total hip replacement and is very pleased with the relief of pain that he received, 6 and a half years ago. Today, patient is complaining mainly of pain in his unoperated right hip. The patient states that he could not have anything done because of his financial obligations until now, but he is anxious to have his right hip fixed. PE: A 57-year-old 6 foot, 300 plus pound male. Has good range of motion of his left hip. He has no significant IR/ER of the right hip. Dorsalis pedis pulse 2 plus. Large abdominal protuberance. Has flexion to 80 degrees with no IR. X-rays AP of his pelvis including both hips show left total hip replacement in general alignment. Right hip has marked degenerative arthritis and flattening of the femoral head. AP of the right hip itself again shows marked deformity of the femoral head with complete collapse of the weightbearing portion. IMPRESSION: Severe degenerative arthritis, right hip joint. Status postop left THR. The patient states that he weighed 275 in 2016, when we did his hip. I have explained to the patient that our current exposure technique for total hip replacements makes patient of his size difficult. I have suggested 70-px-79-pound weight loss. In the interim, I have suggested that if he wants something done with his hip before, I would see if 1 of our other joint replacement partners had an approach that would be more appropriate for his size. The patient seemed to understand this. We will make arrangements. Dictated By: Kushal Christian II, M.D. Date Dictated: 07/21/2022 Date Typed: [facility] 07/21/2022 JOB# [id number] [facility] 07-20-2022 History of Present illness Narrative Radiology Service Progress Note PATIENT NAME: Guy Holloway DATE OF SERVICE: July 20, 2022 TIME: 12:57 PM PATIENT IDENTITY VERIFICATION COMPLETED USING TWO (2) IDENTIFIERS: Name and Date of confirmed by patient verbally. FALL SCREENING: Has the patient had 2 falls in the last year or 1 fall with injury or currently using an Ambulatory Assistive Device (Walker, Cane, Wheelchair, Crutches, etc.)? No PATIENT GENDER DATA: Male PATIENT RELEVANT IMPLANT DATA REVIEWED: Not Applicable RADIOLOGY DEPARTMENT: General X-ray: Exam(s) Completed: Pelvis X-Ray: Pelvis with Hip Right PERIPHERAL IV DATA: Not applicable SIGNED BY: RT Tri(R) July 20, 2022 12:57 PM documented in this encounter [facility] Evaluation note No assessment inform ation available [facility] Work Phone: Evaluation note Diagnosis Primary osteoarthritis of left hip- Primary Primary localized osteoarthrosis, pelvic region and thigh Primary osteoarthritis of right hip Primary localized osteoarthrosis, pelvic region and thigh History of total left hip replacement documented in this encounter [facility] note* Diagnosis Primary osteoarthritis of right hip- Primary Primary localized osteoarthrosis, pelvic region and thigh History of DVT of lower extremity Personal history of venous thrombosis and embolism documented in this encounter [facility] note* Diagnosis Primary osteoarthritis of right hip- Primary Primary localized osteoarthrosis, pelvic region and thigh History of DVT of lower extremity Personal history of venous thrombosis and embolism documented in this encounter [facility] note* Diagnosis Status post total replacement of right hip- Primary Primary osteoarthritis of right hip Primary localized osteoarthrosis, pelvic region and thigh documented in this encounter [facility] note* Diagnosis Status post right hip replacement- Primary Hip joint replacement by other means documented in this encounter [facility] note* Diagnosis Status post right hip replacement- Primary Hip joint replacement by other means [facility] Diagnosis Status post right hip replacement Hip joint replacement by other means [facility] Diagnosis Status post right hip replacement Hip joint replacement by other means [facility] Additional Instructions Continue taking your blood pressure medications, stay well-hydrated Return for worsening or changing chest pain, lightheadedness, nausea or vomiting [facility] Work Phone: [facility] for referral (narrative)* Diagnostic Procedure Only (Routine) - Pending Review Specialty Diagnoses / Procedures Referred By Contac t Referred To Contact XR IMAGING Diagnoses Primary osteoarthritis of right hip Procedures XR HIP GENERAL 3V PELV/AP/LAT RIGHT RADEX HIP UNILATERAL WITH PELVIS 2-3 VIEWS Kushal Christian MD [address] [place] [address] Xr Imaging Referral ID Status Reason Start Date Expiration Date Visits Requested Visits Authorized [id number] Pending Review Auto-Generat ed Referral 2 08/14/2023 1 1 [facility] for referral (narrative)* Diagnostic Procedure Only (Routine) - Closed Specialty Diagnoses / Procedures Referred By Contac t Referred To Contact XR IMAGING Diagnoses Status post right hip replacement Procedures XR HIP GENERAL 3V PELV/AP/LAT RIGHT RADEX HIP UNILATERAL WITH PELVIS 2-3 VIEWS Jacob Singleton PA-C [address] [place] [address] Xr Imaging Referral ID Status Reason Start Date Expiration Date V isits Requested Visits Authorized [id number] Closed Auto-Generate d Referral 10/08/2022 11/07/2023 1 1 [facility] for referral (narrative)* Diagnostic Procedure Only (Routine) - Closed Specialty Diagnoses / Procedures Referred By Contac t Referred To Contact XR IMAGING Diagnoses Status post right hip replacement Procedures XR HIP GENERAL 3V PELV/AP/LAT RIGHT RADEX HIP UNILATERAL WITH PELVIS 2-[place] [address] [place] [address] Xr Imaging Referral ID Status Reason Start Date Expiration Date V isits Requested Visits Authorized [id number] Closed Auto-Generate d Referral 11/10/2022 12/10/2023 1 1 [facility] for referral (narrative)* Diagnostic Procedure Only (Routine) - Closed Specialty Diagnoses / Procedures Referred By Contac t Referred To Contact XR IMAGING Diagnoses Status post right hip replacement Procedures XR HIP GENERAL 3V PELV/AP/LAT RIGHT RADEX HIP UNILATERAL WITH PELVIS 2-3 VIEWS Jacob Singleton PA-C [address] [place] [address] Xr Imaging Referral ID Status Reason Start Date Expiration Date V isits Requested Visits Authorized [id number] Closed Auto-Generate d Referral 12/15/2022 01/08/2024 1 1 [facility] for referral (narrative)* Diagnostic Procedure Only (Routine) - Closed Specialty Diagnoses / Procedures Referred By Contac t Referred To Contact XR IMAGING Diagnoses Status post right hip replacement Procedures XR HIP GENERAL 3V PELV/AP/LAT RIGHT RADEX HIP UNILATERAL WITH PELVIS 2-3 VIEWS Jacob Singleton PA-C [address] [place] [address] [place] [address] Referral ID Status Reason Start Date Expiration Date V isits Requested Visits Authorized [id number] Closed Auto-Generate d Referral 12/15/2022 01/08/2024 1 1 [facility] for referral (narrative)* Diagnostic Procedure Only (Routine) - Closed Specialty Diagnoses / Procedures Referred By Contac t Referred To Contact XR IMAGING Diagnoses Status post right hip replacement Procedures XR HIP GENERAL 3V PELV/AP/LAT RIGHT RADEX HIP UNILATERAL WITH PELVIS 2-[place] [address] [place] [address] [place] [address] Referral ID Status Reason Start Date Expiration Date V isits Requested Visits Authorized [id number] Closed Auto-Generate d Referral 11/10/2022 12/10/2023 1 [facility] Diagnostic Procedure Only (Routine) - Closed Specialty Diagnoses / Procedures Referred By Contac t Referred To Contact XR IMAGING Diagnoses Status post right hip replacement Procedures XR HIP GENERAL 3V PELV/AP/LAT RIGHT RADEX HIP UNILATERAL WITH PELVIS 2-3 VIEWS Jacob Singleton PA-C [address] [place] [address] [place] [address] Referral ID Status Reason Start Date Expiration Date V isits Requested Visits Authorized [id number] Closed Auto-Generate d Referral 10/08/2022 11/07/2023 1 1 [facility] Chief Complaint and Reason for Visit Chief Complaint dizziness, trouble b reathing Advance Directives Advance Directive Response Recorded Date/ Time Advance Directives No February 12 10:59am Summary Purpose Family History No Family History Records FoundNo Family History Records FoundNo Family History Records FoundNo Family History Records FoundNo Family History Records FoundNo Family History Records Found Reason for Referral Specialty Diagnoses / Procedures Referred By Contac t Referred To Contact Vascular Medicine Diagnoses History of DVT of lower extremity Procedures CONSULT TO VASCULAR MEDICINE OFFICE/OUTPATIENT [facility] 60-74 MINUTES Jacob Singleton PA-C [address] [place] [address] Referral ID Status Reason Start Date Expiration Date Visits Requested Visits Authorized [id number] Authorized PCP Requested Referral 2 07/30/2023 1 1 Specialty Diagnoses / Procedures Referred By Contac t Referred To Contact [facility] Diagnoses Status post total replacement of right hip Procedures CONSULT TO PHYSICAL THERAPY PHYSICAL THERAPY EVALUATION HIGH COMPLEX 45 MINS Jacob Singleton PA-C [address] [place] [address] [facility] [address] [place] [address] Referral ID Status Reason Start Date Expiration Date Visits Requested Visits Authorized [id number] Pending Review Auto-Generat ed Referral 09/10/2022 09/10/2023 1 1 Additional Source Comments Care Teams (unrecognized sec tion and content) Team Status: Inactive Member Role Status Dates Danielle Hernandez MD Primary Care Provider Active Brendon Mcnamara DO Emergency Provider Active Norberto Booker MD RES Active Team Status: Active Member Role Status Dates Danielle Hernandez MD Primary Care Provider Active Engraving Patternmaker Relationship Specialty Start Date End Date Danielle Hernandez MD PCP - General Family Medicine 08/19/15 Engraving Patternmaker Relationship Specialty Start Date End Date Danielle Hernandez MD PCP - General Family Medicine 08/19/15 Engraving Patternmaker Relationship Specialty Start Date End Date Danielle Hernandez MD PCP - General Family Medicine 08/19/15 Engraving Patternmaker Relationship Specialty Start Date End Date Danielle Hernandez MD PCP - General Family Medicine 08/19/15 Engraving Patternmaker Relationship Specialty Start Date End Date Danielle Hernandez MD PCP - General Family Medicine 08/19/15 Engraving Patternmaker Relationship Specialty Start Date End Date Danielle Hernandez MD PCP - General Family Medicine 08/19/15 Engraving Patternmaker Relationship Specialty Start Date End Date Danielle Hernandez MD PCP - General Family Medicine 08/19/15 Engraving Patternmaker Relationship Specialty Start Date End Date Danielle Hernandez MD PCP - General Family Medicine 08/19/15 Engraving Patternmaker Relationship Specialty Start Date End Date Danielle Hernandez MD PCP - General Family Medicine 08/19/15 Engraving Patternmaker Relationship Specialty Start Date End Date Danielle Hernandez MD PCP - General Family Medicine 08/19/15 Engraving Patternmaker Relationship Specialty Start Date End Date Danielle Hernandez MD PCP - General Family Medicine 08/19/15 Goals (unrecognized section and content) Goals may be documented in a n alternate section (unrecognized sect ion and content) No Status Records FoundNo Status Records FoundNo Status Records FoundNo Status Records FoundNo Status Records FoundNo Status Records Found INFORMATION SOURCE (unrecogn ized section and content) DATE CREATED AUTHOR 05/16/2022 [facility] DATE CREATED AUTHOR AUTHOR'S ORGANIZ ATION 08/22/2022 [facility] DATE CREATED AUTHOR AUTHOR'S ORGANIZ ATION 09/05/2022 [facility] DATE CREATED AUTHOR AUTHOR'S ORGANIZ ATION 09/29/2022 [facility] DATE CREATED AUTHOR AUTHOR'S ORGANIZ ATION 11/07/2022 [facility] DATE CREATED AUTHOR AUTHOR'S ORGANIZ ATION 12/17/2022 [facility] Source Comments (unrecognize d section and content) In the event this informatio n is protected by the Federal Confidentiality of Alcohol and Drug Abuse Patient Records regulations: The Federal rules restrict any use of the information to criminally investigate or prosecute any alcohol or drug abuse patient.[facility] the event this information is protected by the Federal Confidentiality of Alcohol and Drug Abuse Patient Records regulations: The Federal rules restrict any use of the information to criminally investigate or prosecute any alcohol or drug abuse patient.[facility] the event this information is protected by the Federal Confidentiality of Alcohol and Drug Abuse Patient Records regulations: The Federal rules restrict any use of the information to criminally investigate or prosecute any alcohol or drug abuse patient.[facility] the event this information is protected by the Federal Confidentiality of Alcohol and Drug Abuse Patient Records regulations: The Federal rules restrict any use of the information to criminally investigate or prosecute any alcohol or drug abuse patient.[facility] the event this information is protected by the Federal Confidentiality of Alcohol and Drug Abuse Patient Records regulations: The Federal rules restrict any use of the information to criminally investigate or prosecute any alcohol or drug abuse patient.[facility] the event this information is protected by the Federal Confidentiality of Alcohol and Drug Abuse Patient Records regulations: The Federal rules restrict any use of the information to criminally investigate or prosecute any alcohol or drug abuse patient.[facility] the event this information is protected by the Federal Confidentiality of Alcohol and Drug Abuse Patient Records regulations: The Federal rules restrict any use of the information to criminally investigate or prosecute any alcohol or drug abuse patient.[facility] the event this information is protected by the Federal Confidentiality of Alcohol and Drug Abuse Patient Records regulations: The Federal rules restrict any use of the information to criminally investigate or prosecute any alcohol or drug abuse patient.[facility] the event this information is protected by the Federal Confidentiality of Alcohol and Drug Abuse Patient Records regulations: The Federal rules restrict any use of the information to criminally investigate or prosecute any alcohol or drug abuse patient.[facility] the event this information is protected by the Federal Confidentiality of Alcohol and Drug Abuse Patient Records regulations: The Federal rules restrict any use of the information to criminally investigate or prosecute any alcohol or drug abuse patient.[facility] the event this information is protected by the Federal Confidentiality of Alcohol and Drug Abuse Patient Records regulations: The Federal rules restrict any use of the information to criminally investigate or prosecute any alcohol or drug abuse patient.[facility] Center[facility] the event this information is protected by the Federal Confidentiality of Alcohol and Drug Abuse Patient Records regulations: The Federal rules restrict any use of the information to criminally investigate or prosecute any alcohol or drug abuse patient.[facility] the event this information is protected by the Federal Confidentiality of Alcohol and Drug Abuse Patient Records regulations: The Federal rules restrict any use of the information to criminally investigate or prosecute any alcohol or drug abuse patient.[facility] the event this information is protected by the Federal Confidentiality of Alcohol and Drug Abuse Patient Records regulations: The Federal rules restrict any use of the information to criminally investigate or prosecute any alcohol or drug abuse patient.[facility] the event this information is protected by the Federal Confidentiality of Alcohol and Drug Abuse Patient Records regulations: The Federal rules restrict any use of the information to criminally investigate or prosecute any alcohol or drug abuse patient.[facility] Reason for Visit (unrecogniz ed section and content) Reason Comments Radiology XR Reason Comments Established Patient Follow Up Reason Comments New Pain Reason Comments Question Reason Comments PreOp Call To address patient q uestions Reason Comments Appointment Reason Comments Patient Question Reason Comments Post Op Reason Comments Radiology XR Specialty Diagnoses / Procedures Referred By Contac t Referred To Contact XR IMAGING Diagnoses Status post right hip replacement Procedures XR HIP GENERAL 3V PELV/AP/LAT RIGHT RADEX HIP UNILATERAL WITH PELVIS 2-3 VIEWS Jacob Singleton PA-C [address] [facility] [place] [address] [place] [address] Referral ID Status Reason Start Date Expiration Date V isits Requested Visits Authorized [id number] Closed Auto-Generate d Referral 12/15/2022 01/08/2024 1 1 Reason Comments Radio Gen RMP Specialty Diagnoses / Procedures Referred By Contac t Referred To Contact XR IMAGING Diagnoses Status post right hip replacement Procedures XR HIP GENERAL 3V PELV/AP/LAT RIGHT RADEX HIP UNILATERAL WITH PELVIS 2-[place] [address] [place] [address] [place] [address] Referral ID Status Reason Start Date Expiration Date V isits Requested Visits Authorized [id number] Closed Auto-Generate d Referral 11/10/2022 12/10/2023 1 1 Referral ID Status Reason Start Date Expiration Date V isits Requested Visits Authorized [id number] Closed Auto-Generate d Referral 10/08/2022 11/07/2023 1 1 FOR RECORDS PERTAINING TO PATIENTS WHO ARE OR HAVE BEEN ENROLLED IN A CHEMICAL DEPENDENCY/SUBSTANCEABUSE PROGRAM, SOME INFORMATION MAY BE OMITTED. This clinical summary was aggregated from multiple sources. Caution should be exercised in using it in the provision of clinical care. This summary normalizes information from multiple sources, and as a consequence, information in this document may materially change the coding, format and clinical context of patient data. In addition, data may be omitted in some cases. CLINICAL DECISIONS SHOULD BE BASED ON THE PRIMARY CLINICAL RECORDS. [employer] provides no warranty or guarantee of the accuracy or completeness of information in this document.
[2024-04-03 01:58] LABS: Basophils Absolute Auto 0.1 10^3/uL (0.0-0.1); Basophils Percent Auto 0.4 % (0.2-2.0); Eosinophils Absolute Auto 0.1 10^3/uL (0.0-0.7); Eosinophils Percent Auto 0.5 % (0.9-7.0); Hematocrit 43.8 % (42.0-54.0); Hemoglobin 14.9 g/dL (14.0-18.0); Immature Granulocytes Abs Auto 0.12 10^3/uL (0.00-0.03); Immature Granulocytes Pct Auto 0.8 % (0.0-0.5); Lymphocytes Absolute Auto 1.2 10^3/uL (1.2-3.8); Mean Corpuscular Hemoglobin 29.3 pg (25.9-34.0); Mean Corpuscular Volume 86.2 fL (80.0-94.0); Mean Platelet Volume 9.9 fL (9.5-13.5); Monocytes Absolute Auto 1.2 10^3/uL (0.3-0.8); Monocytes Percent Auto 7.5 % (1.7-12.0); Neutrophils Absolute Auto 12.8 10^3/uL (1.4-6.5); Neutrophils Percent Auto 82.8 % (43.0-75.0); Platelet Count 164 10^3/uL (150-450); Red Blood Count 5.08 10^6/uL (4.70-6.10); Red Cell Distribution Width 13.6 % (11.0-15.0); White Blood Count 15.4 10^3/uL (4.0-11.0)
[2024-04-03 02:05] LABS: Erythrocyte Sedimentation Rate 27 mm/hr (<=20)
[2024-04-03 02:07] LABS: Anion Gap 11.2; BUN Creatinine Ratio 15.9; Calcium 8.9 mg/dL (8.5-10.1); Carbon Dioxide 26.5 mmol/L (21.0-32.0); Chloride 96 mmol/L (98-107); Estimated GFR (African America >60 (>=60); Estimated GFR (Non-African Ame 55 (>=60); Glucose 189 mg/dL (74-106); Potassium 3.7 mmol/L (3.5-5.1); Sodium 130 mmol/L (136-145)
[2024-04-03] MEDS: AMPICILLIN SODIUM/SULBACTAM NA 3 GM in 0.9 % SODIUM CHLORIDE 100 ML IV (02:15)
[2024-04-03] MEDS: 0.9 % SODIUM CHLORIDE 1,000 ML 999 ML IV (02:16)
[2024-04-03 02:21] LABS: Lactate/Lactic Acid 1.5 mmol/L (0.4-2.0)
[2024-04-03 03:33] VITALS: BP 134/76; PULSE 100; TEMP 37; O2SAT 97
[2024-04-03] MEDS: AMOXICILLIN/POTASSIUM CLAV 1 TAB TABLET PO (04:01)
== END 2024-04-03 04:04 | disposition home or self-care (01) ==
PROVIDERS: Emergency Provider Internal Medicine; PCP Family Medicine
DX: L03.115 Cellulitis of right lower limb (principal); R50.9 Fever, unspecified
CPT/HCPCS: 36415; 80048; 83605; 85025; 85652; 86140; 96365; 99284; J0295

== ENCOUNTER 2024-04-04 10:24 | Outpatient (OUT) | payer BC, SELFPAY ==
--- NOTE | 2024-04-04 10:37 | US_ITS ---
The [address] [address] Patient Name: TOM ROY MRN: [id number] date: 1965 Sex: M Assigned Patient Location: [place] Current Patient Location: [place] Accession/Order Number: [id number] Exam Date: 04/04/2024 10:40 Report Date: 04/04/2024 13:01 At the request of: DANIELLE HERNANDEZ Procedure: US venous doppler LE RT EXAMINATION: US venous doppler LE RT HISTORY: Unspecified Injury To Right Leg ; trauma to right suarez COMPARISON: No relevant comparison available. FINDINGS: REGION: Right lower extremity THROMBI: None. COMPRESSIBILITY: Normal compressibility. FLOW: Normal waveform and antegrade flow between 5 and 20 cm/s. OTHER: Several small hypoechoic areas within subcutaneous soft tissues of the anterior lower extremity, likely representing bruising/small hematomas. US/US venous doppler LE RT IMPRESSION: 1. No deep vein thrombus within the right lower extremity. 2. Suspect mild bruising/scattered small hematomas within anterior lower right leg. Electronically authenticated by: BEATRIZ ROACH Date: 04/04/2024 13:01
== END 2024-04-04 10:25 | disposition home or self-care (01) ==
LOC: US 10:27
PROVIDERS: PCP Family Medicine; Visit Provider Family Medicine
DX: Z00.00 Encounter for general adult medical examination without abnormal findings (principal); R10.30 Lower abdominal pain, unspecified; S89.91XA Unspecified injury of right lower leg, initial encounter
CPT/HCPCS: 93971

== ENCOUNTER 2024-04-05 08:16 | Outpatient (OUT) | payer BC, SELFPAY ==
[2024-04-05 08:54] LABS: Basophils Absolute Auto 0.1 10^3/uL (0.0-0.1); Basophils Percent Auto 0.8 % (0.2-2.0); Eosinophils Absolute Auto 0.2 10^3/uL (0.0-0.7); Eosinophils Percent Auto 2.3 % (0.9-7.0); Hematocrit 44.9 % (42.0-54.0); Immature Granulocytes Abs Auto 0.05 10^3/uL (0.00-0.03); Immature Granulocytes Pct Auto 0.8 % (0.0-0.5); Lymphocytes Absolute Auto 1.7 10^3/uL (1.2-3.8); Lymphocytes Percent Auto 26.9 % (20.5-60.0); Mean Corpuscular HGB Conc 33.4 g/dL (29.9-35.2); Mean Corpuscular Hemoglobin 29.1 pg (25.9-34.0); Mean Corpuscular Volume 87.2 fL (80.0-94.0); Monocytes Absolute Auto 0.6 10^3/uL (0.3-0.8); Monocytes Percent Auto 9.8 % (1.7-12.0); Neutrophils Absolute Auto 3.8 10^3/uL (1.4-6.5); Neutrophils Percent Auto 59.4 % (43.0-75.0); Platelet Count 181 10^3/uL (150-450); Red Blood Count 5.15 10^6/uL (4.70-6.10); White Blood Count 6.4 10^3/uL (4.0-11.0)
[2024-04-05 10:04] LABS: Estimated Average Glucose 160 mg/dL; Glycohemoglobin A1C 7.2 % (4.5-6.2)
[2024-04-05 10:39] LABS: Prostate Specific Antigen Scrn 0.68 ng/mL (<=4.00)
[2024-04-05 10:42] LABS: Alanine Aminotransferase 42 U/L (16-63); Albumin Globulin Ratio 0.8; Albumin Level 3.4 g/dL (3.4-5.0); Alkaline Phosphatase 75 U/L (46-116); Anion Gap 12.1; Aspartate Amino Transferase 25 U/L (15-37); BUN Creatinine Ratio 11.8; Bilirubin Total 1.1 mg/dL (0.2-1.0); C Reactive Protein 7.28 mg/dL (<=0.50); Calcium 8.9 mg/dL (8.5-10.1); Carbon Dioxide 27.5 mmol/L (21.0-32.0); Chloride 100 mmol/L (98-107); Chol HDL Ratio 4.3; Cholesterol 189 mg/dL (<=200); Estimated GFR (African America >60 (>=60); Estimated GFR (Non-African Ame >60 (>=60); Free T3 3.11 pg/mL (2.18-3.98); Globulin 4.2 g/dL; Glucose 189 mg/dL (74-106); HDL Cholesterol 44 mg/dL (40-60); Potassium 3.6 mmol/L (3.5-5.1); Sodium 136 mmol/L (136-145); Thyroid Stimulating Hormone 1.918 uIU/mL (0.358-3.740); Total Protein 7.6 g/dL (6.4-8.2); Triglycerides 152 mg/dL (<=150); VLDL CHOLESTEROL 30.4 mg/dL
[2024-04-05 10:55] LABS: Erythrocyte Sedimentation Rate 42 mm/hr (<=20)
== END 2024-04-05 08:17 | disposition home or self-care (01) ==
LOC: LAB 08:16
PROVIDERS: PCP Family Medicine; Visit Provider Family Medicine
DX: Z00.00 Encounter for general adult medical examination without abnormal findings (principal); R10.30 Lower abdominal pain, unspecified; S89.91XA Unspecified injury of right lower leg, initial encounter
CPT/HCPCS: 36415; 80053; 80061; 83036; 84436; 84443; 84481; 85025; 85652; 86140; G0103

== ENCOUNTER 2024-04-12 15:50 | Outpatient (OUT) | payer BC, SELFPAY | END 2024-04-12 15:51 | disposition home or self-care (01) | LOC: MN 15:51 | PROVIDERS: PCP Family Medicine; Visit Provider Family Medicine | DX: E11.9 Type 2 diabetes mellitus without complications (principal) | CPT/HCPCS: 95250; G0108 ==

== ENCOUNTER 2025-03-13 23:31 | Emergency (ER) | payer BC, SELFPAY ==
[2025-03-13 23:36] VITALS: BP 149/91; PULSE 72; TEMP 36.3; O2SAT 96; BMI 34.9
--- OUTSIDE RECORDS SUMMARY | 2025-03-13 23:38 | XMS_ITS | CCD ---
Author Organization [facility] CliniSyga Care Team Providers Care Market Sales Manager Name Role Phone MD Danielle Hernandez Primary Care Provider [phone] DO Brendon Mcnamara Emergency Provider Danielle Hernandez MD Primary Care Provider [phone] COURTNEY ROSAS Attending Unavailable Danielle Hernandez MD Primary Care Provider [phone] MARY, DR SANTOS Primary Care Unavailable MARY, DR SANTOS Admitting Unavailable HOY, DR SANTOS Attending Unavailable HOY, DR SANTOS Primary Care Unavailable MARKER, DR BHATT Attending Unavailable MARKER, DR BHATT Consulting Unavailable MARKER, DR BHATT Admitting Unavailable Liz Montilla Consulting Unavailable MARY, DR SANTOS Primary Care Unavailable HOY, DR SANTOS Admitting Unavailable HOY, DR SANTOS Attending Unavailable HOY, DR SANTOS Consulting Unavailable HOY, DR SANTOS Primary Care Unavailable MISC, DR WELCH Attending Unavailable MISC, DR WELCH Consulting Unavailable MISC, DR WELCH Admitting Unavailable CONNERY, DR SANTOS Consulting Unavailable MARY, DR SANTOS Primary Care Unavailable HOY, DR SANTOS Admitting Unavailable HOY, DR SANTOS Attending Unavailable DANIELLE HERNANDEZ M Primary Care Unavailable ROBERT KAHN Attending Unavailable ROBERT KAHN Admitting Unavailable ConneryKashmirDanielle M Primary Care Unavailable Brendon Mcnamara Attending Unavailable Brendon Mcnamara Admitting Unavailable Danielle Hernandez MD Primary Care Provider [phone] JACOB SINGLETON Referring Unavailable HOYKASHMIRDANIELLE M Primary Care Unavailable HOYDANIELLE M Primary Care Unavailable ROBERT KAHN Referring Unavailable ROBERT KAHN Attending Unavailable KUSHAL CHRISTIAN Referring Unavailable HOYDANIELLE M Primary Care Unavailable KUSHAL CHRISTIAN Attending Unavailable DANIELLE HERNANDEZ M Primary Care Unavailable KUSHAL CHRISTIAN Referring Unavailable CONNERDANIELLE Bridges M Primary Care Unavailable ROBERT KAHN Attending Unavailable JACOB SINGLETON Attending Unavailable CONNERY, DANIELLE M Primary Care Unavailable HOY, DANIELLE M Primary Care Unavailable HOY, DANIELLE M Primary Care Unavailable HOY, DANIELLE M Primary Care Unavailable JACOB SINGLETON Referring Unavailable HOY, DANIELLE M Primary Care Unavailable ROBERT KAHN Referring Unavailable JACOB SINGLETON Referring Unavailable HOY, DANIELLE M Primary Care Unavailable HOY, DANIELLE M Primary Care Unavailable ROBERT KAHN Referring Unavailable JACOB SINGLETON Attending Unavailable CONNERY, DANIELLE M Primary Care Unavailable ROBERT KAHN Attending Unavailable ROBERT KAHN Referring Unavailable HOY, DANIELLE M Primary Care Unavailable ROBERT KAHN Referring Unavailable Danielle Hernandez MD Primary Care Provider Medications Current Medications Medication Drug Class(es) Dates Sig (Normalized) Sig (Original) lisinopril 20 mg oral tablet (16 sources) Angiotensin Converting Enzyme Inhibitor Start: 10-14-2015 take 1 tablet by mouth once daily lisinopril (ZESTRIL, PRINIVIL) 20 mg tablet Take 1 tablet by mouth once daily. 0 10/14/2015 Active Comment on above: [facility]. Completed/Discontinued Medications Medication Drug Class(es) Dates Sig (Normalized) Sig (Original) acetaminophen 500 mg oral tablet (6 sources) Start: 09-24-20 22 take 2 tablets by mouth every eight hours acetaminophen (TYLENOL) 500 mg tablet Take 2 tablets by mouth every 8 hours. 180 tablet 0 09/24/2022 Active Comment on above: Take 2 tablets by mo [facility] every 8 hours. amLODIPine 5 mg oral [...] (3 sources) Factor Xa Inhibitor Start: 09-08-20 ELIQUIS 5 mg tab(s) Take by mouth twice daily. 0 09/08/2022 Active Comment on above: Take by mouth twice daily. hydroCHLOROthiazide 25 mg oral tablet (18 sources) Thiazide Diuretic Start: 08-12-20 End: 08-12-20 hydroCHLOROthiazide (HYDRODIURIL, ESIDRIX) 25 mg tablet Comment on above: Take 25 mg by mouth once daily. 24 hr metoprolol succinate 25 [...] every 4-6 hours as needed for pain Problems Active Problems Problem Classification Problem Date [...] HEART FAILURE] Onset: 02-18-2022 Chronic Essential hypertension (19 sources) Hypertensive disorder; Translations: [Essential (primary) hypertension] Onset: 03-26-2022 10-21-2015 Chronic Headache; including migraine (4 sources) Migraine, unspecified, not intractable, without status migrainosus; Translations: [MIGRAINE UNS NOT INTRACT W/O SM] Onset: 02-26-2022 Chronic Osteoarthritis (20 sources) Osteoarthritis of left hip joint; Translations: [Unilateral primary osteoarthritis, left hip] Onset: 10-21-2015 10-21-2015 Chronic Other connective tissue disease (17 sources) History of total hip arthroplasty; Translations: [...] to excess calories] Onset: 09-23-2022 09-23-2022 Chronic Residual codes; unclassified (1 source) Pain; Translations: [Pain, unspecified] 07-20-2022 Episodic Spondylosis; intervertebral disc disorders; other back problems (1 source) Other intervertebral disc degeneration, thoracolumbar region; Translations: [OTH IV DISC DEGEN THORACOLUMBAR RGN] Onset: 03-26-2022 Chronic Past or Other Problems Problem Classification Problem Date Documented Da te Episodic/Chronic Abdominal pain (4 sources) Unspecified abdominal pain; Translations: [UNSPECIFIED ABDOMINAL PAIN] Onset: 03-24-2022 Episodic Other aftercare (1 source) care home (current) use of anticoagulants; Translations: [JAIL CURRNT USE ANTICOAGULANTS] Onset: 03-26-2022 Episodic Other aftercare (1 source) 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; Translations: [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 CURRENT DRUG THERAPY] Onset: 03-26-2022 Episodic Other aftercare (9 sources) Drug therapy finding; Translations: [care home (current) use of anticoagulants] Onset: 09-09-2022 09-09-2022 [...] Translations: [SYNCOPE AND COLLAPSE] Onset: 02-13-2022 Episodic Results Test Name Value Interpretation Reference Range Facility CNOVon 12-15-2022 CNOV Office Visit (ORAVON ) GUY HOLLOWAY ([id number]) 1965 M Date Time Provider Department 12/15/22 2:30 PM ROBERT KAHN ORYING During your visit today, we recorded the [...] of dental prophy Referring Provider: ROBERT KAHN [[id number]] Allergies As of Date: 12/15/2022 (No Known Allergies) Date Reviewed: 12/15/2022 Reviewed by: Connie Bennett MA - Fully Assessed Reason for Visit: Post Op [174] Primary Visit Diagnosis:Status post right hip replacement [Z96.641] Order(s):XR HIP GENERAL 3V PELV/AP/LAT RIGHT [[id number]] Order #: [id number] FUTURE Prescriptions as of 12/15/2022 - amoxicillin [...] Status:Closed by ROBERT KAHN on 12/15/22 Normal [facility] No Panel Informationon 12-15 [facility] XR HIP 3V PELV+ AP/LAT RTon 12-15-2022 [...] in place with no evidence of complications. Windows Security Analyst: RONNELL Transcribe Date/Time: Dec 15 2022 2:03P Dictated by : RACHEL NICHOLE MD This examination was interpreted and the report reviewed and electronically signed by: RACHEL NICHOLE MD on Dec 15 2022 2:04PM EST [id number] Normal [facility] CNOVon 11-10-2022 CNOV Office Visit (ORAVON ) GUY HOLLOWAY ([id number]) 1965 M Date Time Provider Department 11/10/22 [...] at month 3. Referring Provider: ROBERT KAHN [[id number]] Allergies As of Date: 11/10/2022 (No Known Allergies) Date Reviewed: 11/10/2022 Reviewed by: Connie Bennett MA - Fully Assessed Reason for Visit: Post Op [174] Primary Visit Diagnosis:Status post right hip replacement [Z96.641] Order(s):XR HIP GENERAL 3V PELV/AP/LAT RIGHT [[id number]] Order #: [id number] FUTURE Prescriptions as of 11/10/2022 - amoxicillin [...] Status:Closed by ROBERT KAHN on 11/10/22 Normal [facility] Panel Informationon 11-10 [facility] XR HIP 3V PELV+ AP/LAT RTon 11-10-2022 [...] hip arthroplasty in place with intact hardware. Windows Security Analyst: PSCB Transcribe Date/Time: Nov 10 2022 3:49P Dictated by : RACHEL NICHOLE MD This examination was interpreted and the report reviewed and electronically signed by: RACHEL NICHOLE MD on Nov 10 2022 3:52PM EST [id number] Normal [facility] CNOVon 10-09-2022 CNOV Office Visit (GEE ) GUY HOLLOWAY ([id number]) 1965 M Date Time Provider Department 10/09/22 [...] Jacob Singleton PA-C Referring Provider: ROBERT KAHN [[id number]] Allergies As of Date: 10/09/2022 (No Known Allergies) Date Reviewed: 10/09/2022 Reviewed by: Connie Bennett MA - Fully Assessed Reason for Visit: Post Op [174] Primary Visit Diagnosis:Status post right hip replacement [Z96.641] Order(s):XR HIP GENERAL 3V PELV/AP/LAT RIGHT [[id number]] Order #: [id number] FUTURE amoxicillin (POLYMOX, AMOXIL) 500 mg capsuleTake [...] Status:Closed by JACOB SINGLETON on 10/09/22 Normal [facility] No Panel Informationon 10-09 [facility] XR HIP 3V PELV+ AP/LAT RTon 10-09-2022 [...] hip arthroplasty in place with intact hardware. Windows Security Analyst: PSCB Transcribe Date/Time: Oct 09 2022 10:17A Dictated by : RACHEL NICHOLE MD This examination was interpreted and the report reviewed and electronically signed by: RACHEL NICHOLE MD on Oct 09 2022 10:18AM EST [id number] Normal [facility] Basic metabolic 2000 panelon 09-24-2022 Anion gap [Moles/Vol] 9 mmol/L Normal 9-18 [facility] Comment on above: Order Comment: Speci men Type: BLOOD SPECIMENOrdering Facility: [facility] Address: [address] [address] Performed By: #### 2 4321-2 ####[facility] [id number] [place] [address] [place] Calcium [Mass/Vol] 8.7 mg/dL Normal 8.5-10.2 [facility] Comment on above: Order Comment: Speci men Type: BLOOD SPECIMENOrdering Facility: [facility] Address: [address] [address] Performed By: #### 2 4321-2 ####[facility] [id number] [place] [address] [place] Chloride [Moles/Vol] 101 mmol/L Normal 97-105 [facility] Comment on above: Order Comment: Speci men Type: BLOOD SPECIMENOrdering Facility: [facility] Address: [address] Performed By: #### 2 4321-2 ####[facility] [id number] [place] [id number] [place] CO2 [Moles/Vol] 27 mmol/L Normal 22-30 [facility] Comment on above: Order Comment: Speci men Type: BLOOD SPECIMENOrdering Facility: [facility] Address: [address] Performed By: #### 2 4321-2 ####[facility] [id number] [place] [address] [place] Creatinine [Mass/Vol] 0.95 mg/dL Normal 0.73-1.22 [facility] Comment on above: Order Comment: Speci men Type: BLOOD SPECIMENOrdering Facility: [facility] Address: [address] [address] Performed By: #### 2 4321-2 ####[facility] [id number] [facility] [place] [place] [address] [place] ESTIMATED GLOMERULAR FILTRATION RATE 92 mL/min/1.73m??? Normal >=60 [facility] Comment on above: Order Comment: Ileana mace Type: BLOOD SPECIMENOrdering Facility: [facility] Address: [address] [place] [address] Result Comment: Judy mated Glomerular Filtration Rate [...] actual GFR. Performed By: #### 2 4321-2 ####[facility]ATORYCLIA [id number] [place] [address] [place] Glucose [Mass/Vol] 115 mg/dL High 74-99 [facility] Comment on above: Order Comment: Ileana mace Type: BLOOD SPECIMENOrdering Facility: [facility] Address: [address] [place] [address] Result Comment: The [place] Diabetes Association (ADA) provides guidance for cutoff [...] Standards of Medical Care in Diabetes 2016, French Diabetes Association. Diabetes Care. 2016.39(Suppl 1). Performed By: #### 2 4321-2 ####[facility]ORYCLIA [id number] [place] [id number] [place] Potassium [Moles/Vol] 4.0 mmol/L Normal 3.7-5.1 [facility] Comment on above: Order Comment: Speci men Type: BLOOD SPECIMENOrdering Facility: [facility] Address: [address] [address] Performed By: #### 2 4321-2 ####[facility] [id number] [address] [place] Sodium [Moles/Vol] 137 mmol/L Normal 136-144 [facility] Comment on above: Order Comment: Speci men Type: BLOOD SPECIMENOrdering Facility: [facility] Address: [address] [address] Performed By: #### 2 4321-2 ####[facility] [id number] [place] [address] [place] Urea nitrogen [Mass/Vol] 15 mg/dL Normal 9-24 [facility] Comment on above: Order Comment: Speci men Type: BLOOD SPECIMENOrdering Facility: [facility] Address: [address] [address] Performed By: #### 2 4321-2 ####[facility] [id number] [place] [address] [place] CBC panel Auto (Bld)on 09-24 Erythrocyte distribution width (RBC) [Ratio] 13.5 % Normal 11.5-15.0 [facility] Comment on above: Order Comment: Speci men Type: BLOOD SPECIMENOrdering Facility: [facility] Address: [address] [address] Performed By: #### 5 8410-2 ####[facility] [id number] [address] [place] Hematocrit (Bld) [Volume fraction] 40.1 % Normal 39.0-51.0 [facility] Comment on above: Order Comment: Speci men Type: BLOOD SPECIMENOrdering Facility: [facility] Address: [address] [address] Performed By: #### 5 8410-2 ####[facility] [id number] [address] [place] Hemoglobin (Bld) [Mass/Vol] 13.5 g/dL Normal 13.0-17.0 [facility] Comment on above: Order Comment: Speci men Type: BLOOD SPECIMENOrdering Facility: [facility] Address: [address] [place] [address] Performed By: #### 5 8410-2 ####[facility] [id number] [address] [place] MCH (RBC) [Entitic mass] 28.7 pg Normal 26.0-34.0 [facility] Comment on above: Order Comment: Speci men Type: BLOOD SPECIMENOrdering Facility: [facility] Address: [address] [place] [address] Performed By: #### 5 8410-2 ####[facility] [id number] [address] [place] MCHC (RBC) [Mass/Vol] 33.7 g/dL Normal 30.5-36.0 [facility] Comment on above: Order Comment: Speci men Type: BLOOD SPECIMENOrdering Facility: [facility] Address: [address] [place] [address] Performed By: #### 5 8410-2 ####[facility] [id number] [address] [place] MCV (RBC) [Entitic vol] 85.3 fL Normal 80.0-100.0 [facility] Comment on above: Order Comment: Speci men Type: BLOOD SPECIMENOrdering Facility: [facility] Address: [address] [place] [address] Performed By: #### 5 8410-2 ####[facility] [id number] [address] [place] Nucleated RBC (Bld) [#/Vol] 10*3/uL Normal <0.01 [facility] Comment on above: Order Comment: Speci men Type: BLOOD SPECIMENOrdering Facility: [facility] Address: [address] Performed By: #### 5 8410-2 ####[facility] [id number] [facility] [place] [address] [place] Platelet mean volume (Bld) [Entitic vol] 10.2 fL Normal 9.0-12.7 [facility] Comment on above: Order Comment: Speci men Type: BLOOD SPECIMENOrdering Facility: [facility] Address: [address] Performed By: #### 5 8410-2 ####[facility] [id number] [place] [address] [place] Platelets (Bld) [#/Vol] 186 10*3/uL Normal 150-400 [facility] Comment on above: Order Comment: Speci men Type: BLOOD SPECIMENOrdering Facility: [facility] Address: [address] Performed By: #### 5 8410-2 ####[facility] [id number] [place] [address] [place] RBC (Bld) [#/Vol] 4.70 10*6/uL Normal 4.20-6.00 [facility] Comment on above: Order Comment: Speci men Type: BLOOD SPECIMENOrdering Facility: [facility] Address: [address] Performed By: #### 5 8410-2 ####[facility] [id number] [facility] [place] [place] [address] [place] WBC (Bld) [#/Vol] 11.78 10*3/uL High 3.70-11.00 [facility] Comment on above: Order Comment: Speci men Type: BLOOD SPECIMENOrdering Facility: [facility] Address: [address] Performed By: #### 5 8410-2 ####[facility] [id number] [facility] [place] [address] [facility] CNDSon 09-24-2022 [facility] HNO ID: [id number] Author: Itzel Berry PA-C Service: Orthopaedic Surgery Author Type: Physician Jukebox Routeman Type: Discharge Summary Filed: 09/24/2022 11:49 AM [...] Dept Phone 10/09/2022 8:00 AM JACOB SINGLETON [phone] 11/06/2022 2:15 PM ROBERT KAHN [facility] [phone] Plan discussed with attending Orthopaedic surgeon Dr. Kahn , will addend as needed. I spent 35 minutes in the visit, with more than 50% of the total [id number]-wnyt time of the visit in counseling / coordination of care. 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 [facility] ANES POSTPROC EVALon 022 ANES POSTPROC EVAL HNO ID: [id number] Author: Aniya Lamb MD Service: Anesthesiology Author Type: Anesthesiologist Type: Anesthesia Postprocedure Evaluation Filed: 09/23/2022 3:39 PM Note Text: POST ANESTHESIA EVALUATION NOTE : 1965 Procedure Summary Date: 09/23/22 Room / Location: [address] [place] [address] / OR Anesthesia Start: 842 Anesthesia Stop: [...] September 23, 2022 TIME: 3:39 PM CSN: [id number] [facility] ANES PRE-OPon 09-23-2022 ANES PRE-OP HNO ID: [id number] Author: Aniya Lamb MD Service: Anesthesiology Author Type: Anesthesiologist Type: Anesthesia Preprocedure Evaluation Filed: 09/23/2022 7:29 AM Note Text: ANESTHESIOLOGY DAY OF SURGERY NOTE : 1965 Procedure Information Date/Time: 09/23/22829 Procedure: ARTHROPLASTY HIP BIOMET TAPER LOC (Right: Hip) Location: AV OR05 / AV OR Surgeons: Robert Kahn MD Estimated body [...] and consent discussed: yes. Patient / Responsible Libertarian agrees to proceed: yes Patient / Surrogate [...] September 23, 2022 TIME: 6:38 AM CSN: [id number] [facility] OPERATIVE NOon 09-23-2022 OPERATIVE NO HNO ID: [id number] Author: Robert Kahn MD Service: Orthopaedic Surgery Author Type: Physician Type: Operative Report Filed: 09/23/2022 10:26 AM Note Text: OPERATIVE/PROCEDURE REPORT LOG ID: [id number] SURGERY/PROCEDURE DATE: 09/23/2022 INCISION/PROCEDURE START TIME: 9:25 AM INCISION CLOSE/PROCEDURE END TIME: 1045 SURGEON(S)/PROCEDURALI ST(S) AND SHOW HOST OR HOSTESS(S): Surgeon(s) and Role: * Robert Kahn MD - Primary Physician Jukebox Routeman: Abelardo Tierney PA-C SURGERY/PROCEDURE(S): Right total hip [...] SURGERY/PROCEDURE: No qualified resident/fellow was available. Abelardo CHO was 1st assist. I performed the operation with assistance. No qualified resident was available. A first responder was necessary for safe patient positioning, protection of tissue, retraction, and suture management. The religious assistant provided final wound closure, bandage application, and transfer of the patient to the recovery room. SIGNATURE: Robert Kahn MD PATIENT NAME: Guy Holloway DATE: September 23, 2022 TIME: 10:22 AM Normal [facility] SURGICAL PATHOLOGYon CASE REPORT Normal [facility] Comment on above: Order Comment: Speci men Type: SPECIMEN FROM BONEOrdering Facility: [facility] Address: [address] [place], [place] [address] Result Comment: Surg ical Pathology Report Case: [id number] Authorizing Provider: Robert Kahn MD Collected: 09/23/2022 09:28 AM Ordering Location: [facility] Surgery Received: 09/23/2022 10:47 AM Pathologist: Danie Irby MD Specimen: FEMORAL HEAD RIGHT, right femoral head Performed By: #### S ####[facility] [id number] [address] STATES [facility] CLINICAL HISTORY Normal [facility] pital Comment on above: Order Comment: Speci men Type: SPECIMEN FROM BONEOrdering Facility: [facility] Address: [address] [place], [place] [address] Result Comment: Femo ral head, right, arthroplasty: -Pre-op diagnosis: Primary osteoarthritis of right hip [M16.11] Performed By: #### S ####[facility] [id number] FINAL DIAGNOSIS Normal [facility] ital Comment on above: Order Comment: Speci men Type: SPECIMEN FROM BONEOrdering Facility: [facility] Address: [address] [place], [place] [address] Result Comment: Righ t femoral head, arthroplasty: - Degenerative joint disease with subchondral cyst formation. - Mild chronic synovitis, nonspecific. Performed By: #### S ####[facility] [id number] [address] [place] FINAL PERFORMING LAB Normal [facility] Comment on above: Order Comment: Speci men Type: SPECIMEN FROM BONEOrdering Facility: [facility] Address: [address] [place], [place] [address] Result Comment: Diag nostic interpretation performed at [facility], [address] [place] [address] CLIA# [id number] Hand I Blocker: Augie Cruz M.D. Performed By: #### S ####[facility] LABIA [id number] [address] [place] Normal [facility] Comment on above: Order Comment: Speci men Type: SPECIMEN FROM BONEOrdering Facility: [facility] Address: [address] [place] [address] Result Comment: A. F EMORAL HEAD RIGHT [...] diameter. No grossly necrotic bone is identified. Skilled Laborer sections are submitted, as follows: A1: Articulating surface, following decalcification A2: Non-articulating, peripheral surface, following decalcification A3: Soft tissue from femoral neck A4: Subchondral cysts, following decalcification AKA September 23, 2022 4:02 PM Gross examination performed at [facility], [address] [place] [address] Performed By: #### S ####[facility] LABIA [id number] [address] [place] THERAPY NTon 09-23-2022 THERAPY NT HNO ID: [id number] Author: Talia Lee, PT, DPT Service: Physical Therapy Author Type: Physical Therapist Type: Therapy (PT/OT/Speech/Resp) Filed: 09/23/2022 5:15 PM Note Text: Physical Therapy Evaluation SERVICE DATE: 09/23/2022 SERVICE TIME: 1625 to 1706 ROOM: [place] [address] Recommended Discharge Disposition: Home PT Recommended Discharge [...] 2 children living near by to 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 [facility] XR PELVIS 1V APon 09-23-2022 XR [...] IMPRESSION: Status post hip arthroplasty, normal alignment Windows Security Analyst: PSCB Transcribe Date/Time: Sep 23 2022 12:17P Dictated by : MARILUZ TERRY MD This examination was interpreted and the report reviewed and electronically signed by: MARILUZ TERRY MD on Sep 23 2022 12:17PM EST [id number] [facility] GUY HOLLOWAY ([id number]) 1965 M Date Time Provider Department 09/10/22 [...] off of 3 months. Letter faxed to [facility]-patient's employer. Allergies As of Date: 09/10/2022 (No Known Allergies) Date Reviewed: 09/09/2022 Reviewed by: Mary Kate Welsh APRN.NETWORK SPECIALIST - Fully Assessed Reason for Visit: Patient Question [0957] Prescriptions as of 09/10/2022 - ELIQUIS 5 [...] Status:Closed by SANDRA ELMORE on 09/10/22 Normal [facility] CBC W Auto Differential pane l (Bld)on 09-09-2022 Basophils (Bld) [#/Vol] 0.05 10*3/uL Normal <0.11 [facility] Comment on above: Order Comment: Speci men Type: BLOOD SPECIMENOrdering Facility: [facility] Address: [address] [place] [address] Performed By: #### 5 7021-8 ####[facility] LABIA [id number] [place] [address] [place] Basophils/100 WBC (Bld) 0.6 % Normal [facility] Comment on above: Order Comment: Speci men Type: BLOOD SPECIMENOrdering Facility: [facility] Address: [address] [place] [address] Performed By: #### 5 7021-8 ####[facility] LABIA [id number] [place] [address] [place] Differential cell count method Nom (Bld) Auto Normal [facility] Comment on above: Order Comment: Speci men Type: BLOOD SPECIMENOrdering Facility: [facility] Address: [address] [address] Performed By: #### 5 7021-8 ####[facility] LABCLIA [id number] [place] [address] [place] Eosinophils (Bld) [#/Vol] 0.16 10*3/uL Normal <0.46 [facility] Comment on above: Order Comment: Speci men Type: BLOOD SPECIMENOrdering Facility: [facility] Address: [address] [place] [address] Performed By: #### 5 7021-8 ####[facility] LABCLIA [id number] [place] [address] [place] Eosinophils/100 WBC (Bld) 2.0 % Normal [facility] Comment on above: Order Comment: Speci men Type: BLOOD SPECIMENOrdering Facility: [facility] Address: [address] [place] [address] Performed By: #### 5 7021-8 ####[facility] LABCLIA [id number] [place] [address] [place] Erythrocyte distribution width (RBC) [Ratio] 13.7 % Normal 11.5-15.0 [facility] Comment on above: Order Comment: Speci men Type: BLOOD SPECIMENOrdering Facility: [facility] Address: [address] [place] [address] Performed By: #### 5 7021-8 ####[facility] LABCLIA [id number] [place] [address] [place] Hematocrit (Bld) [Volume fraction] 47.2 % Normal 39.0-51.0 [facility] Comment on above: Order Comment: Speci men Type: BLOOD SPECIMENOrdering Facility: [facility] Address: [address] [place] [address] Performed By: #### 5 7021-8 ####[facility] LABCLIA [id number] [place] [address] [place] Hemoglobin (Bld) [Mass/Vol] 16.3 g/dL Normal 13.0-17.0 [facility] Comment on above: Order Comment: Speci men Type: BLOOD SPECIMENOrdering Facility: [facility] Address: [address] [place] [address] Performed By: #### 5 7021-8 ####[facility] LABCLIA [id number] [place] [address] [place] Immature granulocytes (Bld) [#/Vol] 0.04 10*3/uL Normal <0.10 [facility] Comment on above: Order Comment: Speci men Type: BLOOD SPECIMENOrdering Facility: [facility] Address: [address] [place] [address] Performed By: #### 5 7021-8 ####[facility] LABIA [id number] [place] [address] [place] Immature granulocytes/100 WBC (Bld) 0.5 % Normal [facility] Comment on above: Order Comment: Speci men Type: BLOOD SPECIMENOrdering Facility: [facility] Address: [address] [place] [address] Performed By: #### 5 7021-8 ####[facility] LABIA [id number] [place] [address] [place] Lymphocytes (Bld) [#/Vol] 2.15 10*3/uL Normal 1.00-4.00 [facility] Comment on above: Order Comment: Speci men Type: BLOOD SPECIMENOrdering Facility: [facility] Address: [address] [place] [address] Performed By: #### 5 7021-8 ####[facility] LABCLIA [id number] [address] [place] Lymphocytes/100 WBC (Bld) 27.1 % Normal [facility] Comment on above: Order Comment: Speci men Type: BLOOD SPECIMENOrdering Facility: [facility] Address: [address] [place] [address] Performed By: #### 5 7021-8 ####[facility] LABCLIA [id number] [place] [address] [place] MCH (RBC) [Entitic mass] 29.1 pg Normal 26.0-34.0 [facility] Comment on above: Order Comment: Speci men Type: BLOOD SPECIMENOrdering Facility: [facility] Address: [address] [place] [address] Performed By: #### 5 7021-8 ####[facility] LABCLIA [id number] [place] [address] [place] MCHC (RBC) [Mass/Vol] 34.5 g/dL Normal 30.5-36.0 [facility] Comment on above: Order Comment: Speci men Type: BLOOD SPECIMENOrdering Facility: [facility] Address: [address] [place] [address] Performed By: #### 5 7021-8 ####[facility] LABCLIA [id number] [place] [address] [place] MCV (RBC) [Entitic vol] 84.1 fL Normal 80.0-100.0 [facility] Comment on above: Order Comment: Speci men Type: BLOOD SPECIMENOrdering Facility: [facility] Address: [address] [place] [address] Performed By: #### 5 7021-8 ####[facility] LABCLIA [id number] [place] [address] [place] Monocytes (Bld) [#/Vol] 0.78 10*3/uL Normal <0.87 [facility] Comment on above: Order Comment: Speci men Type: BLOOD SPECIMENOrdering Facility: [facility] Address: [address] [address] Performed By: #### 5 7021-8 ####[facility] LABCLIA [id number] [place] [address] [place] Monocytes/100 WBC (Bld) 9.8 % Normal [facility] Comment on above: Order Comment: Speci men Type: BLOOD SPECIMENOrdering Facility: [facility] Address: [address] [place] [address] Performed By: #### 5 7021-8 ####[facility] LABCLIA [id number] [place] [address] [place] Neutrophils (Bld) [#/Vol] 4.76 10*3/uL Normal 1.45-7.50 [facility] Comment on above: Order Comment: Speci men Type: BLOOD SPECIMENOrdering Facility: [facility] Address: [address] [address] Performed By: #### 5 7021-8 ####[facility] LABCLIA [id number] [place] [address] [place] Neutrophils/100 WBC (Bld) 60.0 % Normal [facility] Comment on above: Order Comment: Speci men Type: BLOOD SPECIMENOrdering Facility: [facility] Address: [address] [place] [address] Performed By: #### 5 7021-8 ####[facility] LABCLIA [id number] [place] [address] [place] Nucleated RBC (Bld) [#/Vol] 10*3/uL Normal <0.01 [facility] Comment on above: Order Comment: Speci men Type: BLOOD SPECIMENOrdering Facility: [facility] Address: [address] Performed By: #### 5 7021-8 ####[facility] LABCLIA [id number] [place] [address] [place] Nucleated RBC/100 WBC (Bld) [Ratio] 0.0 /100 WBC Normal [facility] Comment on above: Order Comment: Speci men Type: BLOOD SPECIMENOrdering Facility: [facility] Address: [address] [place] [address] Performed By: #### 5 7021-8 ####[facility] LABCLIA [id number] [place] [address] [place] Platelet mean volume (Bld) [Entitic vol] 10.1 fL Normal 9.0-12.7 [facility] Comment on above: Order Comment: Speci men Type: BLOOD SPECIMENOrdering Facility: [facility] Address: [address] [place] [address] Performed By: #### 5 7021-8 ####[facility] LABIA [id number] [place] [address] [place] Platelets (Bld) [#/Vol] 197 10*3/uL Normal 150-400 [facility] Comment on above: Order Comment: Speci men Type: BLOOD SPECIMENOrdering Facility: [facility] Address: [address] [place] [address] Performed By: #### 5 7021-8 ####[facility] LABCLIA [id number] [place] [address] [place] RBC (Bld) [#/Vol] 5.61 10*6/uL Normal 4.20-6.00 [facility] Comment on above: Order Comment: Speci men Type: BLOOD SPECIMENOrdering Facility: [facility] Address: [address] [place] [address] Performed By: #### 5 7021-8 ####[facility] LABCLIA [id number] [place] [address] [place] WBC (Bld) [#/Vol] 7.94 10*3/uL Normal 3.70-11.00 [facility] Comment on above: Order Comment: Speci men Type: BLOOD SPECIMENOrdering Facility: [facility] Address: [address] [place] [address] Performed By: #### 5 7021-8 ####[facility] LABCLIA [id number] [place] [address] [place] Comprehensive metabolic 2000 panelon 09-09-2022 Albumin [Mass/Vol] 4.4 g/dL Normal 3.9-4.9 [facility] Comment on above: Order Comment: Speci men Type: BLOOD SPECIMENOrdering Facility: [facility] Address: [address] [place] [address] Performed By: #### 2 4323-8, 69395-3 ####[facility] LABCLIA [id number] [place] [address] [place] ALP [Catalytic activity/Vol] 80 U/L Normal 38-113 [facility] Comment on above: Order Comment: Speci men Type: BLOOD SPECIMENOrdering Facility: [facility] Address: [address] [place] [address] Performed By: #### 2 4323-8, 78337-4 ####[facility] LABCLIA [id number] [place] [address] [place] ALT [Catalytic activity/Vol] 25 U/L Normal 10-54 [facility] Comment on above: Order Comment: Speci men Type: BLOOD SPECIMENOrdering Facility: [facility] Address: [address] [place] [address] Performed By: #### 2 4323-8, 99583-7 ####[facility] LABCLIA [id number] [place] [address] [place] Anion gap [Moles/Vol] 11 mmol/L Normal 9-18 [facility] Comment on above: Order Comment: Speci men Type: BLOOD SPECIMENOrdering Facility: [facility] Address: [address] [place] [address] Performed By: #### 2 4323-8, 31543-2 ####[facility] LABCLIA [id number] [place] [address] [place] AST [Catalytic activity/Vol] 22 U/L Normal 14-40 [facility] Comment on above: Order Comment: Speci men Type: BLOOD SPECIMENOrdering Facility: [facility] Address: [address] [place] [address] Performed By: #### 2 4323-8, 95804-4 ####[facility] LABCLIA [id number] [place] [address] [place] Bilirubin [Mass/Vol] 0.9 mg/dL Normal 0.2-1.3 [facility] Comment on above: Order Comment: Speci men Type: BLOOD SPECIMENOrdering Facility: [facility] Address: [address] [place] [address] Performed By: #### 2 4323-8, 41889-2 ####[facility] LABCLIA [id number] [place] [address] [place] Calcium [Mass/Vol] 9.8 mg/dL Normal 8.5-10.2 [facility] Comment on above: Order Comment: Speci men Type: BLOOD SPECIMENOrdering Facility: [facility] Address: [address] [place] [address] Performed By: #### 2 4323-8, 73142-4 ####[facility] LABCLIA [id number] [place] [address] [place] Chloride [Moles/Vol] 101 mmol/L Normal 97-105 [facility] Comment on above: Order Comment: Speci men Type: BLOOD SPECIMENOrdering Facility: [facility] Address: [address] [address] Performed By: #### 2 4323-8, 80562-7 ####[facility] LABCLIA [id number] [place] [address] [place] CO2 [Moles/Vol] 27 mmol/L Normal 22-30 [facility] Comment on above: Order Comment: Speci men Type: BLOOD SPECIMENOrdering Facility: [facility] Address: [address] [place] [address] Performed By: #### 2 4323-8, 43725-3 ####[facility] LABCLIA [id number] [place] [address] [place] Creatinine [Mass/Vol] 1.09 mg/dL Normal 0.73-1.22 [facility] Comment on above: Order Comment: Speci men Type: BLOOD SPECIMENOrdering Facility: [facility] Address: [address] [place] [address] Performed By: #### 2 4323-8, 39011-2 ####[facility] LABCLIA [id number] [place] [address] [place] ESTIMATED GLOMERULAR FILTRATION RATE 78 mL/min/1.73m??? Normal >=60 [facility] Comment on above: Order Comment: Speci men Type: BLOOD SPECIMENOrdering Facility: [facility] Address: [address] [place] [address] Result Comment: Judy mated Glomerular Filtration Rate [...] actual GFR. Performed By: #### 2 4323-8, 68826-3 ####[facility] LABCLIA [id number] [place] [address] [place] Glucose [Mass/Vol] 102 mg/dL High 74-99 [facility] Comment on above: Order Comment: Speci men Type: BLOOD SPECIMENOrdering Facility: [facility] Address: [address] [place], [place] [address] Result Comment: The [place] Diabetes Association (ADA) provides guidance for cutoff [...] Standards of Medical Care in Diabetes 2016, French Diabetes Association. Diabetes Care. 2016.39(Suppl 1). Performed By: #### 2 4323-8, 73940-3 ####[facility] LABCLIA [id number] [place] [address] [place] Potassium [Moles/Vol] 3.8 mmol/L Normal 3.7-5.1 [facility] Comment on above: Order Comment: Speci men Type: BLOOD SPECIMENOrdering Facility: [facility] Address: [place] [address] Performed By: #### 2 4323-8, 13731-2 ####[facility] LABCLIA [id number] [place] [address] [place] Protein [Mass/Vol] 7.0 g/dL Normal 6.3-8.0 [facility] Comment on above: Order Comment: Speci men Type: BLOOD SPECIMENOrdering Facility: [facility] Address: [address] [place], [place] [address] Performed By: #### 2 4323-8, 95686-2 ####[facility] LABCLIA [id number] [place] [address] [place] Sodium [Moles/Vol] 139 mmol/L Normal 136-144 [facility] Comment on above: Order Comment: Speci men Type: BLOOD SPECIMENOrdering Facility: [facility] Address: [address] [place] [address] Performed By: #### 2 4323-8, 88663-7 ####[facility] LABCLIA [id number] [place] [address] [place] Urea nitrogen [Mass/Vol] 19 mg/dL Normal 9-24 [facility] Comment on above: Order Comment: Speci men Type: BLOOD SPECIMENOrdering Facility: [facility] Address: [address] [place] [address] Performed By: #### 2 4323-8, 94357-7 ####[facility] LABCLIA [id number] [place] [address] [place] Ferritin SerPl-mCncon 2021 Ferritin [Mass/Vol] 435.0 ng/mL Normal 30.3-565.7 [facility] Comment on above: Order Comment: Speci men Type: BLOOD SPECIMENOrdering Facility: [facility] Address: [address] [place] [address] Performed By: #### 2 276-4 ####[facility] LABCLIA [id number] [place] [address] [place] HISTORY PHYSICALon HISTORY PHYSICAL HNO ID: [id number] Author: Mary Kate Welsh APRN.NETWORK SPECIALIST Service: ? Author Type: Nurse Practitioner Type: [...] fevers. Neurological: No history of TIA's, stroke, PRINCIPAL ARCHAEOLOGIST tumor, impaired sensorium, hemiplegia, paraplegia or quadraplegia. No neurological symptoms or problems. Respiratory: No history of current cough or dyspnea, or pneumonia in the past 6 weeks. No history of respiratory/pulmonary symptoms or problems. Cardiovascular: Positive for: anticoagulation therapy, DVT/PE and hypertension Negative for: CAD, chest pain, hyperlipidemia, recent [place] and murmur/valvular heart disease. GI: No history [...] no joint swelling or clubbing. 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 Neurological: normal cognition a (more content not included)... Normal [facility] Iron and Iron binding capaci ty panelon 09-09-2022 Iron [Mass/Vol] 74 ug/dL Normal 41-186 [facility] Comment on above: Order Comment: Speci men Type: BLOOD SPECIMENOrdering Facility: [facility] Address: [address] [address] Performed By: #### 2 4323-8, 39995-2 ####[facility] LABCLIA [id number] [place] [address] [place] Iron binding capacity [Mass/Vol] 341 ug/dL Normal 232-386 [facility] Comment on above: Order Comment: Speci men Type: BLOOD SPECIMENOrdering Facility: [facility] Address: [address] [place] [address] Performed By: #### 2 4323-8, 86158-9 ####[facility] LABCLIA [id number] [place] [address] [place] Iron/TIBC [Molar ratio] 21.7 % Normal 15.0-57.0 [facility] Comment on above: Order Comment: Speci men Type: BLOOD SPECIMENOrdering Facility: [facility] Address: [address] [place] [address] Performed By: #### 2 4323-8, 02736-5 ####[facility] LABCLIA [id number] [place] [address] [place] TYPE AND SCREEN,30 DAYon ABO A Normal [facility] Comment on above: Order Comment: Speci men Type: BLOOD SPECIMENOrdering Facility: [facility] Address: [address] [place] [address] Performed By: #### T SCR30 ####[facility] BLOOD BANKCLIA [id number] [place] AVEN[address]K [id number] HISTORICAL AB SCR STATUS Negative Normal [facility] Comment on above: Order Comment: Speci men Type: BLOOD SPECIMENOrdering Facility: [facility] Address: [address] [address] Performed By: #### T SCR30 ####[facility] BLO[facility] BANKCLIA [id number] [address] Rh Nom (Bld) Positive Normal [facility] Comment on above: Order Comment: Speci men Type: BLOOD SPECIMENOrdering Facility: [facility] Address: [address] [address] Performed By: #### T SCR30 ####[facility] BLOOD BANKIA [id number] [address] CNPNon 09-08-2022 CNPN Telephone (LOPTRM) GUY HOLLOWAY ([id number]) 1965 M Date Time Provider Department 09/08/22 ROBERT KAHN During your visit today, we recorded the following information about you: Jania Lema Pss 09/08/2022 3:30 PM Signed LVM for patient to call with the name and phone number of facility he would like to go to for outpatient PT. Talia Palacio [facility] 09/09/2022 11:55 AM Signed Patient returning call with PT information requested, [facility] [address] FAX:[phone] Jania Lema Pss 09/16/2022 3:51 PM Signed Patient is scheduled at [facility] in [place] on 09/29 at 4:00 Allergies As of [...] Status:Closed by JANIA WILKINSON on 09/08/22 Normal [facility] ALBUMINon 09-01-2022 Albumin [Mass/Vol] 3.9 g/dL Normal 3.4-5.0 [facility] Comment on above: Performed By: #### C MP, ALB #### [facility] [address] [place] [address] Dr. Kaylen Tejeda CBC AUTO DIFFon 09-01-2022 BASO # 0.1 103/ul Normal 0.0-0.1 [facility] Comment on above: Performed By: #### C MP, ALB #### [facility] [address] [place] [address] Dr. Kaylen Tejeda Basophils/100 WBC (Bld) 0.8 % Normal 0.2-2.0 [facility] Comment on above: Performed By: #### C MP, ALB #### [facility] [address] [place] [address] Dr. Kaylen Tejeda EO # 0.2 103/ul Normal 0.0-0.7 [facility] Comment on above: Performed By: #### C MP, ALB #### [facility] [address] [place] [address] Dr. Kaylen Tejeda Eosinophils/100 WBC (Bld) 2.1 % Normal 0.9-7.0 [facility] Comment on above: Performed By: #### C MP, ALB #### [facility] [address] [place] [address] Dr. Kaylen Tejeda Erythrocyte distribution width (RBC) [Ratio] 13.9 % Normal 11.0-15.0 [facility] Comment on above: Performed By: #### C MP, ALB #### [facility] [address] [place] [address] Dr. Kaylen Tejeda Hematocrit (Bld) [Volume fraction] 44.8 % Normal 42.0-54.0 [facility] Comment on above: Performed By: #### C MP, ALB #### [facility] [address] [place] [address] Dr. Kaylen Tejeda Hemoglobin (Bld) [Mass/Vol] 15.3 g/dL Normal 14.0-18.0 [facility] Comment on above: Performed By: #### C MP, ALB #### [facility] [address] [place] [address] Dr. Kaylen Tejeda IG # 0.04 10e3/ul Critically high 0.00-0.03 [facility] Comment on above: Performed By: #### C MP, ALB #### [facility] [address] [place] [address] Dr. Kaylen Tejeda IG % 0.5 % Normal 0.0-0.5 [facility] Comment on above: Performed By: #### C MP, ALB #### [facility] [address] [place] [address] Dr. Kaylen Tejeda LYMPH # 2.5 103/ul Normal 1.2-3.8 [facility] Comment on above: Performed By: #### C MP, ALB #### [facility] [address] [place] [address] Dr. Kaylen Tejeda Lymphocytes/100 WBC (Bld) 29.1 % Normal 20.5-60.0 [facility] Comment on above: Performed By: #### C MP, ALB #### [facility] [address] [place] [address] Dr. Kaylen Tejeda MANUAL DIFF REQ NO Normal [facility] Comment on above: Performed By: #### C MP, ALB #### [facility] [address] [place] [address] Dr. Kaylen Tejeda MCH (RBC) [Entitic mass] 28.8 pg Normal 25.9-34.0 [facility] Comment on above: Performed By: #### C MP, ALB #### [facility] [address] [place] [address] Dr. Kaylen Tejeda MCHC (RBC) [Mass/Vol] 34.2 g/dL Normal 29.9-35.2 [facility] Comment on above: Performed By: #### C MP, ALB #### [facility] [address] [place] [address] Dr. Kaylen Tejeda MCV (RBC) [Entitic vol] 84.2 fL Normal 80.0-94.0 [facility] Comment on above: Performed By: #### C MP, ALB #### [facility] [address] [place] [address] Dr. Kaylen Tejeda MONO # 1.0 103/ul Critically high 0.3-0.8 [facility] Comment on above: Performed By: #### C MP, ALB #### [facility] [address] [place] [address] Dr. Kaylen Tejeda Monocytes/100 WBC (Bld) 11.2 % Normal 1.7-12.0 [facility] Comment on above: Performed By: #### C MP, ALB #### [facility] [address] [place] [address] Dr. Kaylen Tejeda NEUT # 4.9 103/ul Normal 1.4-6.5 [facility] Comment on above: Performed By: #### C MP, ALB #### [facility] [address] [place] [address] Dr. Kaylen Tejeda Neutrophils/100 WBC (Bld) 56.3 % Normal 43.0-75.0 [facility] Comment on above: Performed By: #### C MP, ALB #### [facility] [address] [place] [address] Dr. Kaylen Tejeda Platelet mean volume (Bld) [Entitic vol] 10.0 fL Normal 9.5-13.5 [facility] Comment on above: Performed By: #### C MP, ALB #### [facility] [address] [place] [address] Dr. Kaylen Tejeda PLT 199 103/ul Normal 150-450 [facility] Comment on above: Performed By: #### C MP, ALB #### [facility] [address] [place] [address] Dr. Kaylen Tejeda RBC 5.32 106/ul Normal 4.70-6.10 [facility] Comment on above: Performed By: #### C MP, ALB #### [facility] [address] [place] [address] Dr. Kaylen Tejeda WBC 8.7 103/ul Normal 4.0-11.0 [facility] Comment on above: Performed By: #### C MP, ALB #### [facility] [address] [place] [address] Dr. Kaylen Tejeda PROF 14(COMP METB)on 022 Albumin/Globulin [Mass ratio] 1.2 {ratio} Normal [facility] Comment on above: Performed By: #### C MP, ALB #### [facility] [address] [place] [address] Dr. Kaylen Tejeda ALP [Catalytic activity/Vol] 78 U/L Normal 46-116 [facility] Comment on above: Performed By: #### C MP, ALB #### [facility] [address] [place] [address] Dr. Kaylen Tejeda ALT [Catalytic activity/Vol] 34 U/L Normal 16-63 [facility] Comment on above: Performed By: #### C MP, ALB #### [facility] [address] [place] [address] Dr. Kaylen Tejeda Anion gap [Moles/Vol] 8.8 mmol/L Normal [facility] Comment on above: Performed By: #### C MP, ALB #### [facility] [address] [address] [address] Kaylen Tejeda AST [Catalytic activity/Vol] 9 U/L Critically low 15-37 [facility] Comment on above: Performed By: #### C MP, ALB #### [facility] [address] [address] [address] Kaylen Tejeda Bilirubin [Mass/Vol] 0.8 mg/dL Normal 0.2-1.0 [facility] Comment on above: Performed By: #### C MP, ALB #### [facility] [address] [place] [address] Dr. Kaylen Tejeda Calcium [Mass/Vol] 9.0 mg/dL Normal 8.5-10.1 [facility] Comment on above: Performed By: #### C MP, ALB #### [facility] [address] [place] [address] Dr. Kaylen Tejeda Chloride [Moles/Vol] 101 mmol/L Normal 98-107 [facility] Comment on above: Performed By: #### C MP, ALB #### [facility] [address] [place] [address] Dr. Kaylen Tejeda CO2 [Moles/Vol] 31.8 mmol/L Normal 21.0-32.0 [facility] Comment on above: Performed By: #### C MP, ALB #### [facility] [address] [place] [address] Dr. Kaylen Tejeda Creatinine [Mass/Vol] 1.12 mg/dL Normal 0.70-1.30 [facility] Comment on above: Performed By: #### C MP, ALB #### [facility] [address] [place] [address] Dr. Kaylen Tejeda EGFR-AF BRUNEIAN >60 Normal >=60 [facility] Comment on above: Performed By: #### C MP, ALB #### [facility] [address] [place] [address] Dr. Kaylen Tejeda EGFR-NON AF BRUNEIAN >60 Normal >=60 [facility] Comment on above: Performed By: #### C MP, ALB #### [facility] [address] [place] [address] Dr. Kaylen Tejeda Globulin (S) [Mass/Vol] 3.3 g/dL Normal [facility] Comment on above: Performed By: #### C MP, ALB #### [facility] [address] [place] [address] Dr. Kaylen Tejeda Glucose [Mass/Vol] 97 mg/dL Normal 74-106 [facility] Comment on above: Performed By: #### C MP, ALB #### [facility] [address] [place] [address] Dr. Kaylen Tejeda Potassium [Moles/Vol] 3.6 mmol/L Normal 3.5-5.1 [facility] Comment on above: Performed By: #### C MP, ALB #### [facility] [address] [place] [address] Dr. Kaylen Tejeda Protein [Mass/Vol] 7.2 g/dL Normal 6.4-8.2 [facility] Comment on above: Performed By: #### C MP, ALB #### [facility] [address] [place] [address] Dr. Kaylen Tejeda Sodium [Moles/Vol] 138 mmol/L Normal 136-145 [facility] Comment on above: Performed By: #### C MP, ALB #### [facility] [address] [place] [address] Dr. Kaylen Tejeda Urea nitrogen [Mass/Vol] 22.0 mg/dL Critically high 7.0-18.0 [facility] Comment on above: Performed By: #### C MP, ALB #### [facility] [address] [place] [address] Dr. Kaylen Tejeda Urea nitrogen/Creatinine [Mass ratio] 19.6 mg/mg Normal [facility] Comment on above: Performed By: #### C MP, ALB #### [facility] [address] [place] [address] Dr. 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 Please advise. Allergies As of Date: 08/24/2022 (No Known Allergies) Date Reviewed: 07/30/2022 Reviewed by: Robert Kahn MD - Fully Assessed Reason for Visit: Question [0337] Prescriptions as of 08/25/2022 - lisinopril (PRINIVIL) [...] Status:Closed by CONNIE BENNETT on 08/25/22 Normal [facility] Orders Onlyon 08-18-2022 Orders Only [id number] Guy Holloway 1965 [facility] Provider Department Center 08/18/2022 COURTNEY LAWSON [facility] Family History Problem Relation Age of Onset Deep vein thrombosis Mother's Sister Family Status - Relation Status Age at Mother's Sister Normal [facility] Office Visiton 08-12-2022 Follow-up visit [id number] Guy Holloway 1965 [facility] Provider Department Center 08/12/2022 COURTNEY LAWSON YOHANNES Corbett [facility] Family History Problem Relation Age of Onset Deep vein thrombosis Mother's Sister Family Status - Relation Status Age at Mother's Sister Level of Service:01753 [place] OFFICE/OUTPATIENT NEW MODERATE MDM 45-59 MINUTES Reason for Visit and Comments: Pre-op Exam [822746] Hypertension [269323] Pulmonary embolism [Other] Normal [facility] CNOVon 07-30-2022 CNOV Office Visit (SHEF ) GUY HOLLOWAY ([id number]) 1965 M Date Time Provider Department 07/30/22 9:30 AM ROBERT KAHN During your visit today, we recorded the following information about you: Weight Height 136.1 kg 1.854 m Robert Kahn MD 07/30/2022 12:19 PM Signed CONSULT ORTHOPAEDIC: HIP PRIMARY CARE PHYSICIAN: Danielle Hernandez MD, MD REFERRING PROVIDER: Kushal Christian [address] [address] ASSESSMENT AND PLAN: Impression: Right Hip Severe [...] activities which include walking 2 blocks, doing compounder flavorings, exercise, rising from a sitting position, standing [...] Non smoker (more content not included)... Normal [facility] Laboratory - Microbiology an d Antimicrobial susceptibilityon 07-30-2022 S. aureus and MRSA panel RANDALL+probe (Nose) Negative Negative [facility] STAPH AUREUS PCRon 2 S. aureus and MRSA panel RANDALL+probe (Nose) Normal Negative [facility] Comment on above: Order Comment: Speci men Type: SWAB OF INTERNAL NOSEOrdering Facility: [facility] Address: [address] [place] [address] Result Comment: Nega tive for Staphylococcus aureus by PCR. Negative for MRSA by PCR Performed By: #### S APCR ####[facility] [id number] [address] [place] CNOVon 07-20-2022 CNOV Office Visit (LOORRM ) GUY HOLLOWAY ([id number]) 1965 M Date Time Provider Department 07/20/22 [...] [Z96.642] Order(s):XR HIP GENERAL 3V PELV/AP/LAT RIGHT [[id number]] Order #: [id number] FUTURE Prescriptions as of 07/23/2022 - lisinopril [...] Status:Closed by KUSHAL CHRISTIAN II on 07/23/22 [facility] XR HIP 3V PELV+ AP/LAT [...] and RIGHT hip 3 views. Comparison is 12-15. Interval progression in severe osteoarthritis with complete loss of the joint space, osteophytes and subchondral cysts. There is flattening of the articular surface superiorly. Status post remote LEFT total hip arthroplasty with incomplete visualization of the noncemented femoral stem. Visualized portions without signs of complication or failure. Sacroiliac joints and symphysis are preserved. IMPRESSION: SEVERE RIGHT HIP OSTEOARTHRITIS. [employer] Security Analyst: RONNELL Transcribe Date/Time: Jul 20 2022 1:12P Dictated by : EMI ANDERSON MD This examination was interpreted and the report reviewed and electronically signed by: EMI ANDERSON MD on Jul 20 2022 1:21PM EST [id number] Normal [facility] XR Pelvis and Hip - right AP and Lateral frogon 07-20-2022 IMPRESSION: SEVERE RIGHT HIP OSTEOARTHRITIS. [employer] Security Analyst: PSCB Transcribe Date/Time: Jul 20 2022 1:12P Dictated by : EMI ANDERSON MD This examination was interpreted and the report reviewed and electronically signed by: EMI ANDERSON MD on Jul 20 2022 1:21PM EST DIVISION OF RADIOLOGY * * *Final Report* * * DATE OF EXAM: Jul 20 2022 12:58PM LZX 5352 - XR HIP 3V PELV+ AP/LAT RT / PROCEDURE REASON: Pain * * * * Physician Interpretation * * * * HISTORY: Pain TECHNOLOGIST PROVIDED HISTORY (if applicable): chronic right hip pain TECHNIQUE: XR HIP 3V PELV+ AP/LAT RT RESULT: Pelvis and RIGHT hip 3 views. Comparison is 12. Interval progression in severe osteoarthritis with complete loss of the joint space, osteophytes and subchondral cysts. There is flattening of the articular surface superiorly. Status post remote LEFT total hip arthroplasty with incomplete visualization of the noncemented femoral stem. Visualized portions without signs of complication or failure. Sacroiliac joints and symphysis are preserved. DIVISION OF RADIOLOGY Provider, [facility] - 07/20/2022 * * *Final Report* * * DATE OF EXAM: Jul 20 2022 12:58PM LZX 5352 - XR HIP 3V PELV+ AP/LAT RT / PROCEDURE REASON: Pain * * * * Physician Interpretation * * * * HISTORY: Pain TECHNOLOGIST PROVIDED HISTORY (if applicable): chronic right hip pain TECHNIQUE: XR HIP 3V PELV+ AP/LAT RT RESULT: Pelvis and RIGHT hip 3 views. Comparison is 12-15. Interval progression in severe osteoarthritis with complete loss of the joint space, osteophytes and subchondral cysts. There is flattening of the articular surface superiorly. Status post remote LEFT total hip arthroplasty with incomplete visualization of the noncemented femoral stem. Visualized portions without signs of complication or failure. Sacroiliac joints and symphysis are preserved. IMPRESSION IMPRESSION: SEVERE RIGHT HIP OSTEOARTHRITIS. [employer] Security Analyst: PSCB Transcribe Date/Time: Jul 20 2022 1:12P Dictated by : EMI ANDERSON MD This examination was interpreted and the report reviewed and electronically signed by: EMI ANDERSON MD on Jul 20 2022 1:21PM EST [facility] Radiology Study observation (narrative) [facility] XR Pelvis and Hip - right AP and Lateral frogOrdered By: [facility] Provider on 07-20-2022 [facility] LUMBAR SPINE 2 OR 3 VIEWSon 05-05-2022 LUMBAR SPINE 2 OR 3 VIEWS STUDY: LUMBAR SPINE 2 OR 3 VIEWS; 05/05/2022 1:41 pm INDICATION: PAIN. COMPARISON: None. ACCESSION NUMBER(S): [id number] ORDERING CLINICIAN: Shavon Espana TECHNIQUE: AP and [...] OF FINDINGS: IMPRESSION: DJD. Disc disease. Normal [facility] THORACIC SPINE 2 VIEWSon THORACIC SPINE 2 VIEWS STUDY: THORACIC SPINE 2 VIEWS; 05/05/2022 1:42 pm INDICATION: PAIN. COMPARISON: None. ACCESSION NUMBER(S): [id number] ORDERING CLINICIAN: Shavon Espana TECHNIQUE: AP and lateral upright images of the thoracic spine were obtained. FINDINGS: The alignment of spine is unremarkable. There is moderately severe degenerative change with vertebral body endplate spurring. There is no obvious fracture or bone destruction. COMPARISON OF FINDINGS: IMPRESSION: DJD. Normal [facility] PROF 14(COMP METB)on 022 Albumin [Mass/Vol] 3.5 g/dL Normal 3.4-5.0 [facility] Comment on above: Performed By: #### C MP #### [facility] [address] [place] [address] Dr. Kaylen Tejeda Albumin/Globulin [Mass ratio] 1.1 {ratio} Normal [facility] Comment on above: Performed By: #### C MP #### [facility] [address] [address] [address] Kaylen Tejeda ALP [Catalytic activity/Vol] 74 U/L Normal 46-116 [facility] Comment on above: Performed By: #### C MP #### [facility] [address] [address] [address] Kaylen Tejeda ALT [Catalytic activity/Vol] 40 U/L Normal 16-63 [facility] Comment on above: Performed By: #### C MP #### [facility] [address] [place] [address] Dr. Kaylen Tejeda Anion gap [Moles/Vol] 9.1 mmol/L Normal [facility] Comment on above: Performed By: #### C MP #### [facility] [address] [place] [address] Dr. Kaylen Tejeda AST [Catalytic activity/Vol] 20 U/L Normal 15-37 [facility] Comment on above: Performed By: #### C MP #### [facility] [address] [place] [address] Dr. Kaylen Tejeda Bilirubin [Mass/Vol] 0.7 mg/dL Normal 0.2-1.0 [facility] Comment on above: Performed By: #### C MP #### [facility] [address] [place] [address] Dr. Kaylen Tejeda Calcium [Mass/Vol] 8.5 mg/dL Normal 8.5-10.1 [facility] Comment on above: Performed By: #### C MP #### [facility] [address] [place] [address] Dr. Kaylen Tejeda Chloride [Moles/Vol] 107 mmol/L Normal 98-107 [facility] Comment on above: Performed By: #### C MP #### [facility] [address] [place] [address] Dr. Kaylen Tejeda CO2 [Moles/Vol] 27.9 mmol/L Normal 21.0-32.0 [facility] Comment on above: Performed By: #### C MP #### [facility] [address] [address] [address] Kaylen Tejeda Creatinine [Mass/Vol] 1.30 mg/dL Normal 0.70-1.30 [facility] Comment on above: Performed By: #### C MP #### [facility] [address] [address] [address] Kaylen Tejeda EGFR-AF BRUNEIAN >60 Normal >=60 [facility] Comment on above: Performed By: #### C MP #### [facility] [address] [address] [address] Kaylen Tejeda EGFR-NON AF BRUNEIAN 57 mL/min/1.73m2 Critically low >=60 [facility] Comment on above: Performed By: #### C MP #### [facility] [address] [place] [address] Dr. Kaylen Tejeda Globulin (S) [Mass/Vol] 3.1 g/dL Normal [facility] Comment on above: Performed By: #### C MP #### [facility] [address] [place] [address] Dr. Kaylen Tejeda Glucose [Mass/Vol] 124 mg/dL Critically high 74-106 [facility] Comment on above: Performed By: #### C MP #### [facility] [address] [place] [address] Dr. Kaylen Tejeda Potassium [Moles/Vol] 4.0 mmol/L Normal 3.5-5.1 [facility] Comment on above: Performed By: #### C MP #### [facility] [address] [address] [address] Kaylen Tejeda Protein [Mass/Vol] 6.6 g/dL Normal 6.4-8.2 [facility] Comment on above: Performed By: #### C MP #### [facility] [address] [place] [address] Dr. Kaylen Tejeda Sodium [Moles/Vol] 140 mmol/L Normal 136-145 [facility] Comment on above: Performed By: #### C MP #### [facility] [address] [address] [address] Kaylen Tejeda Urea nitrogen [Mass/Vol] 22.0 mg/dL Critically high 7.0-18.0 [facility] Comment on above: Performed By: #### C MP #### [facility] [address] [place] [address] Dr. Kaylen Tejeda Urea nitrogen/Creatinine [Mass ratio] 16.9 mg/mg Normal [facility] Comment on above: Performed By: #### C MP #### [facility] [address] [place] [address] Dr. Kaylen Tejeda CARDIAC KENDAL ADMITon 022 CK [Catalytic activity/Vol] 446 U/L Critically high 39-308 [facility] Comment on above: Performed By: #### C MP, ALB #### [facility] [address] [place] [address] Dr. Kaylen Tejeda CK.MB [Mass/Vol] 5.05 ng/mL Critically high <=3.60 [facility] Comment on above: Performed By: #### C MP, ALB #### [facility] [address] [place] [address] Dr. Kaylen Tejeda HSTROP 8.4 pg/mL Normal 4.0-76.1 [facility] Comment on above: Result Comment: CUT- OFF POINTS HAVE BEEN ESTABLISHED BASED ON THE FOURTH UNIVERSAL DEFINITIONS OF MYOCARDIAL INFARCTION. THE UPPER REFERENCE LIMIT (URL) OF TROPONIN, DEFINED THE 99TH PERCENTILE OF cTnI DISTRIBUTION IN A REFERENCE POPULATION, HAS BEEN CONFIRMED THE DECISION THRESHOLD FOR [place] DIAGNOSIS. Performed By: #### C MP, ALB #### [facility] [address] [place] [address] Dr. Kaylen Tejeda ALY 110 ng/mL Critically high 16-96 [facility] Comment on above: Performed By: #### C MP, ALB #### [facility] [address] [place] [address] Dr. Kaylen Tejeda CBC AUTO DIFFon 03-24-2022 BASO # 0.1 103/ul Normal 0.0-0.1 [facility] Comment on above: Performed By: #### C BC #### [facility] [address] [address] [address] Kaylen Tejeda Basophils/100 WBC (Bld) 0.9 % Normal 0.2-2.0 [facility] Comment on above: Performed By: #### C BC #### [facility] [address] [address] [address] Kaylen Tejeda EO # 0.2 103/ul Normal 0.0-0.7 [facility] Comment on above: Performed By: #### C BC #### [facility] [address] [place] [address] Dr. Kaylen Tejeda Eosinophils/100 WBC (Bld) 2.2 % Normal 0.9-7.0 [facility] Comment on above: Performed By: #### C BC #### [facility] [address] [place] [address] Dr. Kaylen Tejeda Erythrocyte distribution width (RBC) [Ratio] 13.8 % Normal 11.0-15.0 [facility] Comment on above: Performed By: #### C BC #### [facility] [address] [place] [address] Dr. Kaylen Tejeda Hematocrit (Bld) [Volume fraction] 46.1 % Normal 42.0-54.0 [facility] Comment on above: Performed By: #### C BC #### [facility] [address] [place] [address] Dr. Kaylen Tejeda Hemoglobin (Bld) [Mass/Vol] 15.7 g/dL Normal 14.0-18.0 [facility] Comment on above: Performed By: #### C BC #### [facility] [address] [place] [address] Dr. Kaylen Tejeda IG # 0.05 10e3/ul Critically high 0.00-0.03 [facility] Comment on above: Performed By: #### C BC #### [facility] [address] [place] [address] Dr. Kaylen Tejeda IG % 0.6 % Critically high 0.0-0.5 [facility] Comment on above: Performed By: #### C BC #### [facility] [address] [place] [address] Dr. Kaylen Tejeda LYMPH # 2.6 103/ul Normal 1.2-3.8 [facility] Comment on above: Performed By: #### C BC #### [facility] [address] [place] [address] Dr. Kaylen Tejeda Lymphocytes/100 WBC (Bld) 30.4 % Normal 20.5-60.0 [facility] Comment on above: Performed By: #### C BC #### [facility] [address] [place] [address] Dr. Kaylen Tejeda MANUAL DIFF REQ NO Normal [facility] Comment on above: Performed By: #### C BC #### [facility] [address] [place] [address] Dr. Kaylen Tejeda MCH (RBC) [Entitic mass] 29.8 pg Normal 25.9-34.0 [facility] Comment on above: Performed By: #### C BC #### [facility] [address] [place] [address] Dr. Kaylen Tejeda MCHC (RBC) [Mass/Vol] 34.1 g/dL Normal 29.9-35.2 [facility] Comment on above: Performed By: #### C BC #### [facility] [address] [place] [address] Dr. Kaylen Tejeda MCV (RBC) [Entitic vol] 87.5 fL Normal 80.0-94.0 [facility] Comment on above: Performed By: #### C BC #### [facility] [address] [place] [address] Dr. Kaylen Tejeda MONO # 0.9 103/ul Critically high 0.3-0.8 [facility] Comment on above: Performed By: #### C BC #### [facility] [address] [place] [address] Dr. Kaylen Tejeda Monocytes/100 WBC (Bld) 10.3 % Normal 1.7-12.0 [facility] Comment on above: Performed By: #### C BC #### [facility] [address] [place] [address] Dr. Kaylen Tejeda NEUT # 4.8 103/ul Normal 1.4-6.5 [facility] Comment on above: Performed By: #### C BC #### [facility] [address] [place] [address] Dr. Kaylen Tejeda Neutrophils/100 WBC (Bld) 55.6 % Normal 43.0-75.0 [facility] Comment on above: Performed By: #### C BC #### [facility] [address] [place] [address] Dr. Kaylen Tejeda Platelet mean volume (Bld) [Entitic vol] 10.2 fL Normal 9.5-13.5 [facility] [facility] Comment on above: Performed By: #### C BC #### [facility] [address] [place] [address] Dr. Kaylen Tejeda PLT 206 103/ul Normal 150-450 [facility] Comment on above: Performed By: #### C BC #### [facility] [address] [place] [address] Dr. Kaylen Tejeda RBC 5.27 106/ul Normal 4.70-6.10 [facility] Comment on above: Performed By: #### C BC #### [facility] [address] [place] [address] Dr. Kaylen Tejeda WBC 8.6 103/ul Normal 4.0-11.0 [facility] Comment on above: Performed By: #### C BC #### [facility] [address] [place] [address] ABD/PELVIS WO CONon 03-24 CT ABD/PELVIS WO CON EXAMINATION: CT ABD/PELVIS WO CON, 03/24/2022 6:50 PM MDT HISTORY: CALCULUS OF KIDNEY COMPARISON: None. TECHNIQUE: CT scan of the abdomen and pelvis was performed without IV contrast. CT dose reduction technique was used, including Automated Exposure Control. FINDINGS: Crew Supervisor: No pertinent findings, which are not already [...] LIZ MONTILLA Date: 2022-03-24 21:57 Normal [facility] BNPon 02-13-2022 Natriuretic peptide B (Bld) [Mass/Vol] 83.0 pg/mL Normal <=900.0 [facility] Comment on above: Performed By: #### B WEAPONS ENGINEER, CMP, T7, TSH #### [facility] [address] [address] [address] Kaylen Tejeda CBC AUTO DIFFon 02-13-2022 BASO # 0.1 103/ul Normal 0.0-0.1 [facility] Comment on above: Performed By: #### C BC #### [facility] [address] [place], [place] [address] Dr. Kaylen Tejeda Basophils/100 WBC (Bld) 0.9 % Normal 0.2-2.0 [facility] Comment on above: Performed By: #### C BC #### [facility] [address] [place] [address] Dr. Kaylen Tejeda EO # 0.1 103/ul Normal 0.0-0.7 [facility] Comment on above: Performed By: #### C BC #### [facility] [address] [place] [address] Dr. Kaylen Tejeda Eosinophils/100 WBC (Bld) 1.9 % Normal 0.9-7.0 [facility] Comment on above: Performed By: #### C BC #### [facility] [address] [place] [address] Dr. Kaylen Tejeda Erythrocyte distribution width (RBC) [Ratio] 13.5 % Normal 11.0-15.0 [facility] Comment on above: Performed By: #### C BC #### [facility] [address] [place] [address] Dr. Kaylen Tejeda Hematocrit (Bld) [Volume fraction] 45.5 % Normal 42.0-54.0 [facility] Comment on above: Performed By: #### C BC #### [facility] [address] [place] [address] Dr. Kaylen Tejeda Hemoglobin (Bld) [Mass/Vol] 15.8 g/dL Normal 14.0-18.0 [facility] Comment on above: Performed By: #### C BC #### [facility] [address] [place] [address] Dr. Kaylen Tejeda IG # 0.03 10e3/ul Normal 0.00-0.03 [facility] Comment on above: Performed By: #### C BC #### [facility] [address] [place] [address] Dr. Kaylen Tejeda IG % 0.4 % Normal 0.0-0.5 [facility] Comment on above: Performed By: #### C BC #### [facility] [address] [place] [address] Dr. Kaylen Tejeda LYMPH # 1.8 103/ul Normal 1.2-3.8 [facility] Comment on above: Performed By: #### C BC #### [facility] [address] [place] [address] Dr. Kaylen Tejeda Lymphocytes/100 WBC (Bld) 27.3 % Normal 20.5-60.0 [facility] Comment on above: Performed By: #### C BC #### [facility] [address] [place] [address] Dr. Kaylen Tejeda MANUAL DIFF REQ NO Normal [facility] Comment on above: Performed By: #### C BC #### [facility] [address] [place] [address] Dr. Kaylen Tejeda MCH (RBC) [Entitic mass] 30.0 pg Normal 25.9-34.0 [facility] Comment on above: Performed By: #### C BC #### [facility] [address] [place] [address] Dr. Kaylen Tejeda MCHC (RBC) [Mass/Vol] 34.7 g/dL Normal 29.9-35.2 [facility] Comment on above: Performed By: #### C BC #### [facility] [address] [place] [address] Dr. Kaylen Tejeda MCV (RBC) [Entitic vol] 86.3 fL Normal 80.0-94.0 [facility] Comment on above: Performed By: #### C BC #### [facility] [address] [place] [address] Dr. Kaylen Tejeda MONO # 0.6 103/ul Normal 0.3-0.8 [facility] Comment on above: Performed By: #### C BC #### [facility] [address] [place] [address] Dr. Kaylen Tejeda Monocytes/100 WBC (Bld) 8.7 % Normal 1.7-12.0 [facility] Comment on above: Performed By: #### C BC #### [facility] [address] [place] [address] Dr. Kaylen Tejeda NEUT # 4.1 103/ul Normal 1.4-6.5 [facility] Comment on above: Performed By: #### C BC #### [facility] [address] [place] [address] Dr. Kaylen Tejeda Neutrophils/100 WBC (Bld) 60.8 % Normal 43.0-75.0 [facility] Comment on above: Performed By: #### C BC #### [facility] [address] [place] [address] Dr. Kaylen Tejeda Platelet mean volume (Bld) [Entitic vol] 9.4 fL Critically low 9.5-13.5 [facility] Comment on above: Performed By: #### C BC #### [facility] [address] [place] [address] Dr. Kaylen Tejeda PLT 169 103/ul Normal 150-450 [facility] Comment on above: Performed By: #### C BC #### [facility] [address] [place] [address] Dr. Kaylen Tejeda RBC 5.27 106/ul Normal 4.70-6.10 [facility] Comment on above: Performed By: #### C BC #### [facility] [address] [place] [address] Dr. Kaylen Tejeda WBC 6.7 103/ul Normal 4.0-11.0 [facility] Comment on above: Performed By: #### C BC #### [facility] [address] [place] [address] Dr. Kaylen Tejeda FREE THYROXINE INDEX T7on FTI 2.81 Normal 1.30-4.50 [facility] Comment on above: Performed By: #### B WEAPONS ENGINEER, CMP, T7, TSH #### [facility] [address] [place] [address] Dr. Kaylen Tejeda T3U 33.0 % Normal 33.0-40.0 [facility] Comment on above: Performed By: #### B WEAPONS ENGINEER, CMP, T7, TSH #### [facility] [address] [place] [address] Dr. Kaylen Tejeda T4 [Mass/Vol] 8.50 ug/dL Normal 4.50-12.10 [facility] Comment on above: Performed By: #### B WEAPONS ENGINEER, CMP, T7, TSH #### [facility] [address] [place], [place] [id number] Dr. Kaylen Tejeda PROF 14(COMP METB)on 022 Albumin [Mass/Vol] 3.9 g/dL Normal 3.4-5.0 [facility] Comment on above: Performed By: #### B WEAPONS ENGINEER, CMP, T7, TSH #### [facility] [address] [place] [address] Dr. Kaylen Tejeda Albumin/Globulin [Mass ratio] 1.1 {ratio} Normal [facility] Comment on above: Performed By: #### B WEAPONS ENGINEER, CMP, T7, TSH #### [facility] [address] [place] [address] Dr. Kaylen Tejeda ALP [Catalytic activity/Vol] 78 U/L Normal 46-116 [facility] Comment on above: Performed By: #### B WEAPONS ENGINEER, CMP, T7, TSH #### [facility] [address] [place] [address] Dr. Kaylen Tejeda ALT [Catalytic activity/Vol] 54 U/L Normal 16-63 [facility] Comment on above: Performed By: #### B WEAPONS ENGINEER, CMP, T7, TSH #### [facility] [address] [address] [address] Kaylen Tejeda Anion gap [Moles/Vol] 10.9 mmol/L Normal [facility] Comment on above: Performed By: #### B WEAPONS ENGINEER, CMP, T7, TSH #### [facility] [address] [place] [address] Dr. Kaylen Tejeda AST [Catalytic activity/Vol] 32 U/L Normal 15-37 [facility] Comment on above: Performed By: #### B WEAPONS ENGINEER, CMP, T7, TSH #### [facility] [address] [address] [address] Kaylen Tejeda Bilirubin [Mass/Vol] 1.6 mg/dL Critically high 0.2-1.0 [facility] Comment on above: Performed By: #### B WEAPONS ENGINEER, CMP, T7, TSH #### [facility] [address] [place] [address] Dr. Kaylen Tejeda Calcium [Mass/Vol] 9.1 mg/dL Normal 8.5-10.1 [facility] Comment on above: Performed By: #### B WEAPONS ENGINEER, CMP, T7, TSH #### [facility] [address] [place] [address] Dr. Kaylen Tejeda Chloride [Moles/Vol] 102 mmol/L Normal 98-107 [facility] Comment on above: Performed By: #### B WEAPONS ENGINEER, CMP, T7, TSH #### [facility] [address] [place] [address] Dr. Kaylen Tejeda CO2 [Moles/Vol] 29.0 mmol/L Normal 21.0-32.0 [facility] Comment on above: Performed By: #### B WEAPONS ENGINEER, CMP, T7, TSH #### [facility] [address] [place] [address] Dr. Kaylen Tejeda Creatinine [Mass/Vol] 1.04 mg/dL Normal 0.70-1.30 [facility] Comment on above: Performed By: #### B WEAPONS ENGINEER, CMP, T7, TSH #### [facility] [address] [place] [address] Dr. Kaylen Tejeda EGFR-AF BRUNEIAN >60 Normal >=60 [facility] Comment on above: Performed By: #### B WEAPONS ENGINEER, CMP, T7, TSH #### [facility] [address] [place] [address] Dr. Kaylen Tejeda EGFR-NON AF BRUNEIAN >60 Normal >=60 [facility] Comment on above: Performed By: #### B WEAPONS ENGINEER, CMP, T7, TSH #### [facility] [address] [place] [address] Dr. Kaylen Tejeda Globulin (S) [Mass/Vol] 3.5 g/dL Normal [facility] Comment on above: Performed By: #### B WEAPONS ENGINEER, CMP, T7, TSH #### [facility] [address] [place] [address] Dr. Kaylen Tejeda Glucose [Mass/Vol] 116 mg/dL Critically high 74-106 [facility] Comment on above: Performed By: #### B WEAPONS ENGINEER, CMP, T7, TSH #### [facility] [address] [place] [address] Dr. Kaylen Tejeda Potassium [Moles/Vol] 3.9 mmol/L Normal 3.5-5.1 [facility] Comment on above: Performed By: #### B WEAPONS ENGINEER, CMP, T7, TSH #### [facility] [address] [place] [address] Dr. Kaylen Tejeda Protein [Mass/Vol] 7.4 g/dL Normal 6.4-8.2 [facility] Comment on above: Performed By: #### B WEAPONS ENGINEER, CMP, T7, TSH #### [facility] [address] [place] [address] Dr. Kaylen Tejeda Sodium [Moles/Vol] 138 mmol/L Normal 136-145 [facility] Comment on above: Performed By: #### B WEAPONS ENGINEER, CMP, T7, TSH #### [facility] [address] [place] [address] Dr. Kaylen Tejeda Urea nitrogen [Mass/Vol] 11.0 mg/dL Normal 7.0-18.0 [facility] Comment on above: Performed By: #### B WEAPONS ENGINEER, CMP, T7, TSH #### [facility] [address] [place] [address] Dr. Kaylen Tejeda Urea nitrogen/Creatinine [Mass ratio] 10.6 mg/mg Normal [facility] Comment on above: Performed By: #### B WEAPONS ENGINEER, CMP, T7, TSH #### [facility] [address] [place] [address] Dr. Kaylen Tejeda TSHon 02-13-2022 TSH 1.140 uIU/mL Normal 0.358-3.740 [facility] Comment on above: Performed By: #### B WEAPONS ENGINEER, CMP, T7, TSH #### [facility] [address] [place] [address] Dr. Kaylen Tejeda TSH RANGE SEE BELOW Normal [facility] Comment on above: Result Comment: <0.3 4 UIU/ml HYPERTHYROID 0.34-5.60 UIU/ml EUTHYROID >5.60 UIU/ml HYPOTHYROID Performed By: #### B WEAPONS ENGINEER, CMP, T7, TSH #### [facility] [address] [address] [address] Kaylen Tejeda Activated partial thrombopla stin time (aPTT) in platelet poor plasma by coagulation aOrdered By: Brendon Mcnamara on 02-12-2022 aPTT Coag (PPP) [Time] 32.3 s 25.1-36.5 [facility] Albumin [Mass/volume] in Ser um or PlasmaOrdered By: Brendon Mcnamara on 02-12-2022 Albumin [Mass/Vol] 3.9 g/dL 3.2-5.5 [facility] Basophils Auto (Bld) [#/Vol] Ordered By: Brendon Mcnamara on 02-12-2022 Basophils (Bld) [#/Vol] 0.0 10*3/uL 0.0-0.2 [facility] Basophils/100 WBC Auto (Bld) Ordered By: Brendon Mcnamara on 02-12-2022 Basophils/100 WBC (Bld) 0.8 % [facility] Blood hemoglobin measurement (mass/volume)Ordered By: Brendon Mcnamara on 02-12-2022 Hemoglobin (Bld) [Mass/Vol] 15.5 g/dL 13.0-17.0 [facility] Blood leukocytes automated c ount (number/volume)Ordered By: Brendon Mcnamara on 02-12-2022 WBC (Bld) [#/Vol] 5.9 10*3/uL 4.5-11.0 [facility] CT angio cheston 02-12-2022 CT angio chest [facility] [place] [address] CT Scan Report Signed Patient: Guy Holloway MR#: [id number] : 1965 Acct:[id number] Age/Sex: 56 / M ADM Date: 02/12/22 Loc: ER Room: Type: [facility] ER Attending Dr: Ordering Provider: Brendon [...] Murillo Jr., M.D.02/12/2022 2:52 PM Dictation Location: [place] [address] Transcribed By: [facility] 02/12/22 1452 Dictated By: Tiffanie Murillo Jr, MD 02/12/22 1441 Signed By: 02/12/22 1452 Normal [facility] Complete Blood Count Auto Di ffon 02-12-2022 Basophils (Bld) [#/Vol] 0.0 10*3/uL Normal 0.0-0.2 [facility] Comment on above: Result Comment: PERF ORMED BY: [place] [address] PATHOLOGIST BENZENE STILL UTILITY OPERATOR KAIA KENDRICK M.D. Performed By: #### C MP, PT, PTT, CK, CKMB, HS TROP, CBC #### [address] Basophils/100 WBC (Bld) 0.8 % Normal . [facility] Comment on above: Performed By: #### C MP, PT, PTT, CK, CKMB, HS TROP, CBC #### [address] Eosinophils (Bld) [#/Vol] 0.1 10*3/uL Normal 0.0-0.45 [facility] Comment on above: Performed By: #### C MP, PT, PTT, CK, CKMB, HS TROP, CBC #### [address] Eosinophils/100 WBC (Bld) 2.4 % Normal . [facility] Comment on above: Performed By: #### C MP, PT, PTT, CK, CKMB, HS TROP, CBC #### [address] Erythrocyte distribution width (RBC) [Ratio] 14.9 % High 12.0-14.8 [facility] Comment on above: Performed By: #### C MP, PT, PTT, CK, CKMB, HS TROP, CBC #### [address] Hematocrit (Bld) [Volume fraction] 44.4 % Normal 38.8-50.0 [facility] Comment on above: Performed By: #### C MP, PT, PTT, CK, CKMB, HS TROP, CBC #### [address] Hemoglobin (Bld) [Mass/Vol] 15.5 g/dL Normal 13.0-17.0 [facility] Comment on above: Performed By: #### C MP, PT, PTT, CK, CKMB, HS TROP, CBC #### [address] Lymphocytes (Bld) [#/Vol] 1.4 10*3/uL Normal 1.00-4.8 [facility] Comment on above: Performed By: #### C MP, PT, PTT, CK, CKMB, HS TROP, CBC #### [address] Lymphocytes/100 WBC (Bld) 23.8 % Normal . [facility] Comment on above: Performed By: #### C MP, PT, PTT, CK, CKMB, HS TROP, CBC #### [address] MCH (RBC) [Entitic mass] 29.6 pg Normal 27.5-35.2 [facility] Comment on above: Performed By: #### C MP, PT, PTT, CK, CKMB, HS TROP, CBC #### [address] MCV (RBC) [Entitic vol] 85.1 fL Normal 83.5-101 [facility] Comment on above: Performed By: #### C MP, PT, PTT, CK, CKMB, HS TROP, CBC #### [address] Mean Corpuscular HGB Conc 34.8 g/dL Normal 32.5-35.6 [facility] Comment on above: Performed By: #### C MP, PT, PTT, CK, CKMB, HS TROP, CBC #### [address] Monocytes (Bld) [#/Vol] 0.7 10*3/uL Normal 0.0-0.8 [facility] Comment on above: Performed By: #### C MP, PT, PTT, CK, CKMB, HS TROP, CBC #### [address] Monocytes/100 WBC (Bld) 11.8 % Normal . [facility] Comment on above: Performed By: #### C MP, PT, PTT, CK, CKMB, HS TROP, CBC #### [address] Neutrophils (Bld) [#/Vol] 3.6 10*3/uL Normal 1.8-7.7 [facility] Comment on above: Performed By: #### C MP, PT, PTT, CK, CKMB, HS TROP, CBC #### [address] [place] [address] [place] Neutrophils/100 WBC (Bld) 61.2 % Normal . [facility] Comment on above: Performed By: #### C MP, PT, PTT, CK, CKMB, HS TROP, CBC #### [facility] [address] Nucleated RBC/100 WBC (Bld) [Ratio] 0.3 % Normal 0-0.5 [facility] Comment on above: Performed By: #### C MP, PT, PTT, CK, CKMB, HS TROP, CBC #### [facility] [address] Platelet mean volume (Bld) [Entitic vol] 8.2 fL Normal 6.6-10.1 [facility] Comment on above: Performed By: #### C MP, PT, PTT, CK, CKMB, HS TROP, CBC #### [facility] [address] Platelets (Bld) [#/Vol] 167 10*3/uL Normal 150-450 [facility] Comment on above: Performed By: #### C MP, PT, PTT, CK, CKMB, HS TROP, CBC #### [address] RBC (Bld) [#/Vol] 5.22 10*6/uL Normal 3.90-5.60 [facility] Comment on above: Performed By: #### C MP, PT, PTT, CK, CKMB, HS TROP, CBC #### [facility] [address] WBC (Bld) [#/Vol] 5.9 10*3/uL Normal 4.5-11.0 [facility] Comment on above: Performed By: #### C MP, PT, PTT, CK, CKMB, HS TROP, CBC #### [address] Comprehensive Metabolic Pane corie 02-12-2022 Albumin [Mass/Vol] 3.9 g/dL Normal 3.2-5.5 [facility] Comment on above: Performed By: #### C MP, PT, PTT, CK, CKMB, HS TROP, CBC #### [facility] [address] Albumin/Globulin [Mass ratio] 1.5 {ratio} Normal [facility] Comment on above: Performed By: #### C MP, PT, PTT, CK, CKMB, HS TROP, CBC #### [address] ALP [Catalytic activity/Vol] 64 U/L Normal 32-92 [facility] Comment on above: Performed By: #### C MP, PT, PTT, CK, CKMB, HS TROP, CBC #### [facility] [address] ALT [Catalytic activity/Vol] 39 U/L Normal 10-60 [facility] Comment on above: Performed By: #### C MP, PT, PTT, CK, CKMB, HS TROP, CBC #### [facility] [address] AST [Catalytic activity/Vol] 32 U/L Normal 10-42 [facility] Comment on above: Performed By: #### C MP, PT, PTT, CK, CKMB, HS TROP, CBC #### [address] Bilirubin [Mass/Vol] 1.6 mg/dL High 0.3-1.2 [facility] Comment on above: Result Comment: Samp les from patients who have taken Naproxen have shown spurious elevation in Total Bilirubin levels. A metabolite of Naproxen, O-desmethylnaproxen, has been shown to interfere with the Jendrassik-Grof method for measuring Total Bilirubin. Performed By: #### C MP, PT, PTT, CK, CKMB, HS TROP, CBC #### [address] Calcium [Mass/Vol] 9.1 mg/dL Normal 8.2-10.2 [facility] Comment on above: Performed By: #### C MP, PT, PTT, CK, CKMB, HS TROP, CBC #### [address] Chloride [Moles/Vol] 103 mmol/L Normal 95-114 [facility] Comment on above: Performed By: #### C MP, PT, PTT, CK, CKMB, HS TROP, CBC #### [address] CO2 [Moles/Vol] 23.1 mmol/L Normal 22.0-30.0 [facility] Comment on above: Performed By: #### C MP, PT, PTT, CK, CKMB, HS TROP, CBC #### [address] Creatinine [Mass/Vol] 1.03 mg/dL Normal 0.64-1.27 [facility] Comment on above: Performed By: #### C MP, PT, PTT, CK, CKMB, HS TROP, CBC #### [address] Creatinine Clr Calc Pharmacy 112.27 [facility] Comment on above: Result Comment: PERF ORMED BY: [place] [address] PATHOLOGIST BENZENE STILL UTILITY OPERATOR KAIA KENDRICK M.D. Performed By: #### C MP, PT, PTT, CK, CKMB, HS TROP, CBC #### [address] Estimated GFR ( Puneet > 60 [facility] Comment on above: Result Comment: GFR estimated reference range: According to KDOQI guidelines, <60 ml/min/1.73m2 is sufficient to diagnose a patient with chronic kidney disease. Performed By: #### C MP, PT, PTT, CK, CKMB, HS TROP, CBC #### [address] Estimated GFR (Non- Am > 60 [facility] Comment on above: Performed By: #### C MP, PT, PTT, CK, CKMB, HS TROP, CBC #### [address] [place] [address] [place] Globulin (S) [Mass/Vol] 2.6 g/dL Normal [facility] Comment on above: Performed By: #### C MP, PT, PTT, CK, CKMB, HS TROP, CBC #### [facility] [address] Glucose [Mass/Vol] 79 mg/dL Normal 70-100 [facility] Comment on above: Result Comment: [facility] Glucose Reference Range is dependent on time and content of last meal. Glucose of more than 200 mg/dL in a nonstressed, ambulatory subject supports the diagnosis of Diabetes Mellitus. ADA recommended reference range Performed By: #### C MP, PT, PTT, CK, CKMB, HS TROP, CBC #### [facility] [address] Potassium [Moles/Vol] 3.9 mmol/L Normal 3.5-5.1 [facility] Comment on above: Performed By: #### C MP, PT, PTT, CK, CKMB, HS TROP, CBC #### [facility] [address] Protein [Mass/Vol] 6.5 g/dL Normal 6.1-7.9 [facility] Comment on above: Performed By: #### C MP, PT, PTT, CK, CKMB, HS TROP, CBC #### [facility] [address] Sodium [Moles/Vol] 137 mmol/L Normal 136-146 [facility] Comment on above: Performed By: #### C MP, PT, PTT, CK, CKMB, HS TROP, CBC #### [facility] [address] [place] [address] [place] Urea nitrogen [Mass/Vol] 10 mg/dL Normal 9-23 [facility] Comment on above: Performed By: #### C MP, PT, PTT, CK, CKMB, HS TROP, CBC #### [facility] [address] [place] [address] [place] Creatine Kinaseon 02-12-2022 CK [Catalytic activity/Vol] 380 U/L High [facility] Comment on above: Performed By: #### C MP, PT, PTT, CK, CKMB, HS TROP, CBC #### [facility] [address] Creatine kinase [Enzymatic a ctivity/volume] in Serum or PlasmaOrdered By: Brendon Mcnamara on 02-12-2022 CK [Catalytic activity/Vol] 380 U/L [facility] Creatinine Kinase MBon 02-12 CK.MB [Mass/Vol] 5.7 ng/mL Normal 0.6-6.3 [facility] Comment on above: Performed By: #### C MP, PT, PTT, CK, CKMB, HS TROP, CBC #### [facility] [address] CKMB Relative Index 1.5 % Normal 0.00-2.50 [facility] Comment on above: Performed By: #### C MP, PT, PTT, CK, CKMB, HS TROP, CBC #### [facility] [address] Creatinine and Glomerular fi ltration rate.predicted panel (S/P/Bld)Ordered By: Brendon Mcnamara on 02-12-2022 Creatinine [Mass/Vol] 1.03 mg/dL 0.64-1.27 [facility] ECG 12 lead ECGon 02-12-2022 ECG 12 lead ECG [facility] [place] [address] [place] [address] Electrocardiograph Report Signed Patient: Guy Holloway MR#: [id number] : 1965 Acct:[id number] Age/Sex: 56 / M ADM Date: 02/12/22 Loc: ER Room: Type: [facility] ER Attending Dr: Ordering Provider: Brendon Mcnamara [...] No previous ECGs available Confirmed by Brendon Mcnmaara DO ([id number]) on 02/12/2022 2:55:30 PM Referred By: Electronically Signed By:Brendon Mcnamara DO Transcribed By: MUS Signed By Brendon Mcnamara DO 02/12 1455 Normal [facility] Eosinophils Auto (Bld) [#/Vo l]Ordered By: Brendon Mcnamara on 02-12-2022 Eosinophils (Bld) [#/Vol] 0.1 10*3/uL 0.0-0.45 [facility] Eosinophils/100 WBC Auto (Bl d)Ordered By: Brendon Mcnamara on 02-12-2022 Eosinophils/100 WBC (Bld) 2.4 % [facility] Erythrocyte distribution wid th Auto (RBC) [Ratio]Ordered By: Brendon Mcnamara on 02-12-2022 Erythrocyte distribution width (RBC) [Ratio] 14.9 % 12.0-14.8 [facility] Estimated glomerular filtrat ion rate (GFR) non- AmericanOrdered By: Brendon Mcnamara on 02-12-2022 GFR/1.73 sq M.predicted among non-blacks MDRD (S/P/Bld) [Vol rate/Area] > 60 mL/Min [facility] Globulin Calc (S) [Mass/Vol] Ordered By: Brendon Mcnamara on 02-12-2022 Globulin (S) [Mass/Vol] 2.6 g/dL [facility] Hematocrit Auto (Bld) [Volum e fraction]Ordered By: Brendon Mcnamara on 02-12-2022 Hematocrit (Bld) [Volume fraction] 44.4 % 38.8-50.0 [facility] Laboratory - CoagulationOrde red By: Brendon Mcnamara on 02-12-2022 PT Coag (PPP) [Time] 14.2 s 9.0-12.9 [facility] Laboratory - Hematology and Cell countsOrdered By: Brendon Mcnamara on 02-12-2022 Nucleated RBC/100 WBC (Bld) [Ratio] 0.3 % 0-0.5 [facility] Lymphocytes Auto (Bld) [#/Vo l]Ordered By: Brendon Mcnamara on 02-12-2022 Lymphocytes (Bld) [#/Vol] 1.4 10*3/uL 1.00-4.8 [facility] Lymphocytes/100 WBC Auto (Bl d)Ordered By: Brendon Mcnamara on 02-12-2022 Lymphocytes/100 WBC (Bld) 23.8 % [facility] MCH Auto (RBC) [Entitic mass ]Ordered By: Brendon Mcnamara on 02-12-2022 MCH (RBC) [Entitic mass] 29.6 pg 27.5-35.2 [facility] MCHC Auto (RBC) [Mass/Vol]Or dered By: Brendon Mcnamara on 02-12-2022 MCHC (RBC) [Mass/Vol] 34.8 g/dL 32.5-35.6 [facility] MCV Auto (RBC) [Entitic vol] Ordered By: Brendon Mcnamara on 02-12-2022 MCV (RBC) [Entitic vol] 85.1 fL 83.5-101 [facility] Monocytes Auto (Bld) [#/Vol] Ordered By: Brendon Mcnamara on 02-12-2022 Monocytes (Bld) [#/Vol] 0.7 10*3/uL 0.0-0.8 [facility] Monocytes/100 WBC Auto (Bld) Ordered By: Brendon Mcnamara on 02-12-2022 Monocytes/100 WBC (Bld) 11.8 % [facility] Neutrophils Auto (Bld) [#/Vo l]Ordered By: Brendon Mcnamara on 02-12-2022 Neutrophils (Bld) [#/Vol] 3.6 10*3/uL 1.8-7.7 [facility] Neutrophils/100 WBC Auto (Bl d)Ordered By: Brendon Mcnamara on 02-12-2022 Neutrophils/100 WBC (Bld) 61.2 % [facility] No Panel InformationOrdered By: Brendon Mcnamara on 02-12-2022 Estimated GFR () > 60 mL/Min [facility] Comment on above: GFR estimated refere nce range: According to KDOQI guidelines, <60 ml/min/1.73m2 is sufficient to diagnose a patient with chronic kidney disease. Pharmacy Creatinine Clearance (Chem 112.27 [facility] Partial Thromboplastin Timeo n 02-12-2022 aPTT Coag (Bld) [Time] 32.3 s Normal 25.1-36.5 [facility] Comment on above: Result Comment: PERF ORMED BY: [facility] [address] [place] [address] PATHOLOGIST BENZENE STILL UTILITY OPERATOR KAIA KENDRICK M.D. Performed By: #### C MP, PT, PTT, CK, CKMB, HS TROP, CBC #### [facility] [address] Platelet mean volume Auto (B ld) [Entitic vol]Ordered By: Brendon Mcnamara on 02-12-2022 Platelet mean volume (Bld) [Entitic vol] 8.2 fL 6.6-10.1 [facility] Platelet poor plasma interna tional normalized ratio (INR) by coagulation assay (relatOrdered By: Brendon Mcnamara on 02-12-2022 INR Coag (PPP) [Relative time] 1.3 {INR} [facility] Comment on above: INR Therapeutic Rang e [...] 02-12-2022 Platelets (Bld) [#/Vol] 167 10*3/uL 150-450 [facility] Protein [Mass/volume] in Ser um or PlasmaOrdered By: Brendon Mcnamara on 02-12-2022 Protein [Mass/Vol] 6.5 g/dL 6.1-7.9 [facility] Prothrombin Time INRon 02-12 INR Coag (PPP) [Relative time] 1.3 {INR} Normal [facility] Comment on above: Result Comment: INR Therapeutic [...] PTT, CK, CKMB, HS TROP, CBC #### [facility] [address] PT Coag (PPP) [Time] 14.2 s High 9.0-12.9 [facility] Comment on above: Performed By: #### C MP, PT, PTT, CK, CKMB, HS TROP, CBC #### [facility] [address] RBC Auto (Bld) [#/Vol]Ordere d By: Brendon Mcnamara on 02-12-2022 RBC (Bld) [#/Vol] 5.22 10*6/uL 3.90-5.60 [facility] Serum or plasma alanine mccabe otransferase measurement without P-5'-P (enzymatic activiOrdered By: Brendon Mcnamara on 02-12-2022 ALT No additional P-5'-P [Catalytic activity/Vol] 39 U/L 10-60 [facility] Serum or plasma albumin/glob ulin mass ratioOrdered By: Brendon Mcnamara on 02-12-2022 Albumin/Globulin [Mass ratio] 1.5 {ratio} [facility] Serum or plasma alkaline skyler sphatase measurement (enzymatic activity/volume)Ordered By: Brendon Mcnamara on 02-12-2022 ALP [Catalytic activity/Vol] 64 U/L 32-92 [facility] Serum or plasma aspartate am inotransferase measurement (enzymatic activity/volume)Ordered By: Brendon Mcnamara on 02-12-2022 AST [Catalytic activity/Vol] 32 U/L 10-42 [facility] Serum or plasma calcium adilene urement (mass/volume)Ordered By: Brendon Mcnamara on 02-12-2022 Calcium [Mass/Vol] 9.1 mg/dL 8.2-10.2 [facility] Serum or plasma chloride david surement (moles/volume)Ordered By: Brendon Mcnamara on 02-12-2022 Chloride [Moles/Vol] 103 mmol/L 95-114 [facility] Serum or plasma creatine kin ase MB (CKMB)/total creatine kinase (CK) ratio by calculaOrdered By: Brendon Mcnamara on 02-12-2022 CK.MB Calc [Catalytic fraction] 1.5 % 0.00-2.50 [facility] Serum or plasma creatine kin ase MB measurement (mass/volume)Ordered By: Brendon Mcnamara on 02-12-2022 CK.MB [Mass/Vol] 5.7 ng/mL 0.6-6.3 [facility] Serum or plasma glucose adilene urement (mass/volume)Ordered By: Brendon Mcnamara on 02-12-2022 Glucose [Mass/Vol] 79 mg/dL 70-100 [facility] Comment on above: ADA recommended refe rence range Random Glucose Reference Range is dependent on time and content of last meal. Glucose of more than 200 mg/dL in a nonstressed, ambulatory subject supports the diagnosis of Diabetes Mellitus. Serum or plasma potassium me asurement (moles/volume)Ordered By: Brendon Mcnamara on 02-12-2022 Potassium [Moles/Vol] 3.9 mmol/L 3.5-5.1 [facility] Serum or plasma sodium measu rement (moles/volume)Ordered By: Brendon Mcnamara on 02-12-2022 Sodium [Moles/Vol] 137 mmol/L 136-146 [facility] Serum or plasma total biliru bin measurement (mass/volume)Ordered By: Brendon Mcnamara on 02-12-2022 Bilirubin [Mass/Vol] 1.6 mg/dL 0.3-1.2 [facility] Comment on above: Samples from patient s who have taken Naproxen have shown spurious elevation in Total Bilirubin levels. A metabolite of Naproxen, O-desmethylnaproxen, has been shown to interfere with the Ryan method for measuring Total Bilirubin. Serum or plasma total carbon dioxide measurement (moles/volume)Ordered By: Brendon Mcnamara on 02-12-2022 CO2 [Moles/Vol] 23.1 mmol/L 22.0-30.0 [facility] Serum or plasma urea nitroge n measurement (mass/volume)Ordered By: Brendon Anders on 02-12-2022 Urea nitrogen [Mass/Vol] 10 mg/dL 06-26 [facility] Troponin I High Sensitivityo n 02-12-2022 Troponin I High Sensitivity 6 pg/mL Normal 0-20 [facility] Comment on above: Result Comment: PERF ORMED BY: [place] [address] PATHOLOGIST BENZENE STILL UTILITY OPERATOR KAIA KENDRICK M.D. Performed By: #### H S TROP #### [facility] [address] [place] [address] Troponin I High Sensitivity 6 pg/mL Normal 0-20 [facility] Comment on above: Result Comment: PERF ORMED BY: [place] [address] PATHOLOGIST BENZENE STILL UTILITY OPERATOR KAIA KENDRICK M.D. Performed By: #### C MP, PT, PTT, CK, CKMB, HS TROP, CBC #### [facility] [address] [place] [address] [place] Troponin I.cardiac [Mass/vol ume] in Serum or Plasma by High sensitivity methodOrdered By: Brendon Mcnamara on 02-12-2022 Troponin I.cardiac High sensitivity method [Mass/Vol] 6 pg/mL 0- [facility] Vital Signs Date Time Vital Sign Value Performing Clinician Derricki an 07-30-2022 09:28-0400 Body height 185.4 cm Robert Kahn MD Work Phone: [facility] 07-30-2022 09:28-0400 Body weight 136.08 kg Robert Kahn MD Work Phone: [facility] 07-23-2022 10:45-0400 Body height 182.9 cm Kushal Christian MD Work Phone: [facility] 07-23-2022 10:45-0400 Body weight 136.08 kg Kushal Christian MD Work Phone: [facility] 02-12-2022 15:10-0400 Diastolic blood pressure 106 mm[Hg] MD Danielle Hernandez Work Phone: [facility] 02-12-2022 15:10-0400 Heart rate 65 /min MD Danielle Hernandez Work Phone: [facility] 02-12-2022 15:10-0400 Respiratory rate 18 /min MD Danielle Hernandez Work Phone: [facility] 02-12-2022 15:10-0400 SaO2% (BldA) [Mass fraction] 99 % MD Danielle Hernandez Work Phone: [facility] 02-12-2022 15:10-0400 Systolic blood pressure 167 mm[Hg] MD Danielle Hernandez Work Phone: [facility] 02-12-2022 10:41-0400 Body height 182.88 cm MD Danielle Hernandez Work Phone: [facility] 02-12-2022 10:41-0400 Body mass index (BMI) [Ratio] 41.1 kg/m2 MD Danielle Hernandez Work Phone: [facility] 02-12-2022 10:41-0400 Body temperature 98.3 [degF] MD Danielle Hernandez Work Phone: [facility] 02-12-2022 10:41-0400 Body weight 137.43 kg MD Danielle Hernandez Work Phone: [facility] Encounters Encounter Date Encounter Type Care Provider Facility Start: 12-15-2022 End: 12-15-2022 ambulatory DANIELLE HERNANDEZ Facility:[facility] Start: 12-15-2022 End: 12-15-2022 Patient encounter procedure Robert Kahn MD Work Phone: Orthopaedics Comment on above: Status post right hi p replacement (Primary Dx) Start: 12-15-2022 End: 12-15-2022 Subsequent hospital visit by physician Xr Ortho [facility] Rej Work Phone: Radiology Comment on above: Status post right hi p replacement [Z96.641] Start: 11-10-2022 End: 11-10-2022 ambulatory [facility] Facility:[facility] Start: 11-10-2022 End: 11-10-2022 Subsequent hospital visit by physician [facility]r [facility] Rej Work Phone: Radiology Comment on above: Status post right hi p replacement [Z96.641] Start: 11-10-2022 End: 11-10-2022 Patient encounter procedure Robert Kahn MD Work Phone: Orthopaedics Comment on above: Status post right hi p replacement (Primary Dx) Start: 10-09-2022 End: 10-09-2022 ambulatory [facility] Facility:[facility] Start: 10-09-2022 End: 10-09-2022 Patient encounter procedure Jacob Singleton PA-C Work Phone: Orthopaedics Comment on above: Status post right hi p replacement (Primary Dx) Start: 10-09-2022 End: 10-09-2022 Subsequent hospital visit by physician [facility] Rej Work Phone: Radiology Comment on above: Status post right hi p replacement [Z96.641] Start: 09-23-2022 End: 09-24-2022 ambulatory [facility] Facility:[facility] Start: 09-14-2022 End: 09-14-2022 ambulatory Gilma Drew RNinsurance agent Start: 09-10-2022 Orders Only Jacob lentz PA-C Work Phone: Orthopaedics Comment on above: 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) Patient Question Start: 09-09-2022 Encounter for other preprocedural examination JACOB SINGLETON [facility] Start: 09-09-2022 End: 09-09-2022 ambulatory [facility] Facility:[facility] Start: 09-08-2022 Telephone encounter Robert oHrton ra, MD Work Phone: [facility] Comment on above: Appointment Start: 09-01-2022 End: 09-02-[address] DANIELLE HERNANDEZ Facility:[facility] Start: 08-31-2022 End: 08-31-2022 ambulatory DANIELLE HERNANDEZ Facility:[facility] Start: 08-25-2022 End: 08-25-2022 ambulatory Jacob Anglinzakjeremy HAWA Work Phone: Orthopaedics Comment on above: Primary osteoarthrit is of right hip (Primary Dx); History of DVT of lower extremity Start: 08-25-2022 End: 08-25-2022 Telemedicine consultation with patient Jacob Betty SHAIKH Work Phone: [facility] Start: 08-24-2022 Telephone encounter Robert Horton ra, MD Work Phone: Orthopaedics Comment on above: Question Start: 08-12-2022 End: 08-12-2022 ambulatory [facility] Start: 08-12-2022 End: 08-12-2022 Encounter for other preprocedural examination [facility] Start: 07-30-2022 End: 07-30-2022 ambulatory KUSHAL CHRISTIAN Facility:[facility] Start: 07-30-2022 End: 07-30-2022 Patient encounter procedure [...] History of total left hip replacement Start: 07-20-2022 End: 07-20-2022 Subsequent hospital visit by physician James Christian 1 Work Phone: Radiology Comment on above: Pain [R52] Start: 03-24-2022 End: 03-25-[address] DANIELLE HERNANDEZ Facility:[facility] Start: 03-10-[address] DANIELLE HERNANDEZ Facility :[facility] Start: 02-26-2022 End: 02-27-[address] DANIELLE HERNANDEZ Facility:[facility] Start: 02-13-2022 End: 02-14-[address] DANIELLE HERNANDEZ Facility:[facility] Start: 02-12-2022 End: 02-12-2022 Emergency department patient visit Danielle Hernandez Facility:[facility] Start: 02-12-2022 End: 02-12-2022 Emergency department patient visit MD Danielle Hernandez Work Phone: [facility] Procedures Date Procedure Procedure Detail Performing Clinician Start: 12-15-2022 Radex hip unilateral with pelvis 2-3 views Jacob MARTINEZ-Ori Work Phone: Start: 11-10-2022 Radex hip unilateral with pelvis 2-3 views Robert Kahn MD Work Phone: Start: 10-09-2022 Radex hip unilateral with pelvis 2-3 views Jacob MARTINEZ-C Work Phone: Start: 09-09-2022 Antibody screen JACOB SINGLETON Comment on above: Order Comment: Speci men Type: BLOOD SPECIMENOrdering Facility: [facility] Address: [address] [place] [address] Performed By: #### T [id number] ####CC MAIN BLOOD BANKCLIA [id number] [place] [address] [place] Start: 07-30-2022 Iadna s aureus ampli fied probe tq Jacob Singleton PA-C Work Phone: Start: 07-20-2022 Radex hip unilateral with pelvis 2-3 views Kushal Christian MD Work Phone: Start: 02-12-2022 CT of chest MD Danielle Hernandez Work Phone: Plan of Treatment Date Care Activity Detail Author Start: 05-03-2031 Urine microalbumin profile DTaP,Tdap,Td Vaccine (2 - Tdap) [facility] Start: 09-24-2025 DIABETES SCREEN DIABETES SCREEN [facility] Start: 09-24-2025 Diabetes Screening Diabetes Screenin g [facility] Start: 09-09-2025 DIABETES SCREEN DIABETES SCREEN [facility] Start: 06-04-2024 Covid-19 Vaccine ( season) Covid-19 Vaccine ( season) [facility] Start: 06-04-2024 Influenza vaccination Influenza Vacc ine (#1) [facility] Start: 2023 RSV Vaccine (1 - 1-d ose 60+ series) RSV Vaccine (1 - 1-dose 60+ series) [facility] Start: 2023 RSV Vaccine (1 - Ris k 60-74 years 1-dose series) RSV Vaccine (1 - Risk 60-74 years 1-dose series) [facility] Start: 06-04-2023 Covid-19 Vaccine ( season) Covid-19 Vaccine ( season) [facility] Start: 06-04-2023 Influenza vaccination Influenza Vacc ine (#1) [facility] Start: 10-04-2022 DEPRESSION ASSESSMENT DEPRESSION ASS ESSMENT [facility] Start: 07-30-2022 End: 09-29-2022 Albumin [Mass/volume] in Serum or Plasma ALBUMIN BLD Lab Routine Primary osteoarthritis of right hip Expected: 07/30/2022, Expires: 09/29/2022 [facility] Work Phone: Comment on above: Expected: 07/30/2022 , Expires: 09/29/2022 Start: 07-30-2022 End: 09-29-2022 CBC W Auto Differential panel - Blood CBC + DIFF Lab Routine Primary osteoarthritis of right hip Expected: 07/30/2022, Expires: 09/29/2022 [facility] Work Phone: Comment on above: Expected: 07/30/2022 , Expires: 09/29/2022 Start: 07-30-2022 End: 09-29-2022 Comprehensive metabolic 2000 panel - Serum or Plasma COMP METABOLIC PANEL Lab Routine Primary osteoarthritis of right hip Expected: 07/30/2022, Expires: 09/29/2022 [facility] Work Phone: Comment on above: Expected: 07/30/2022 , Expires: 09/29/2022 Start: 07-30-2022 End: 09-29-2022 CONFIRM BLOOD TYPE CONFIRM BLOOD TYPE Blood Bank Routine Primary osteoarthritis of right hip Expected: 07/30/2022, Expires: 09/29/2022 [facility] Work Phone: Comment on above: Expected: 07/30/2022 , Expires: 09/29/2022 Start: 07-30-2022 End: 09-29-2022 TYPE AND SCREEN,30 DAY TYPE AND SCREEN,30 DAY Blood Bank Routine Primary osteoarthritis of right hip Expected: 07/30/2022, Expires: 09/29/2022 [facility] Work Phone: Comment on above: Expected: 07/30/2022 , Expires: 09/29/2022 Start: 06-04-2022 Influenza vaccination INFLUENZA (#1) [facility] Start: 12-01-2021 COVID-19 VACCINE (4 - Booster for Pfizer series) COVID-19 VACCINE (4 - Booster for Pfizer series) [facility] Start: 10-04-2021 DEPRESSION ASSESSMENT DEPRESSION ASS ESSMENT [facility] Start: 10-22-2018 DIABETES SCREEN DIABETES SCREEN [facility] Start: 2018 PROSTATE CANCER SCREENING DISCUSSION PROSTATE CANCER SCREENING DISCUSSION [facility] Start: 2018 Prostate specific antigen measurement Prostate Cancer Screening Discussion [facility] Start: 2013 SHINGRIX VACCINE (1 of 2) SHINGRIX VACCINE (1 of 2) [facility] Start: 2008 COLOGUARD (FIT-DNA) COLOGUARD (FIT-D NA) [facility] Start: 2008 Colonoscopy COLONOSCOPY [facility] Start: 2008 COLORECTAL CANCER SCREENING COLORECTAL CANCER SCREENING [facility] Start: [address] COLONOGRAPHY [facility] Start: 2008 FECAL OCCULT BLOOD FECAL OCCULT BLOO D [facility] Start: 2008 Screening for malign ant neoplasm of colon [facility] Start: 2008 SIGMOIDOSCOPY SIGMOIDOSCOPY [facility] Start: 1998 Lipid 1996 panel - Serum or Plasma Lipid Screening [facility] Start: 1998 Lipid panel Lipid Screening [facility] Start: 1998 LIPID SCREEN LIPID SCREEN [facility] Start: 1982 Urine microalbumin profile DTAP,TDAP,TD (1 - Tdap) [facility] Start: 1981 ANNUAL 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 SHARON DISEASE VISIT ANNUAL PCP TEAM CHRONIC DISEASE VISIT [facility] Start: 1981 Anxiety Screening Anxiety Screening [facility] Start: 1981 BP CONTROLLED (<130/80) BP CONTROLLE D (<130/80) [facility] Start: 1981 Depression Screening Depression Scre ening [facility] Start: 1981 HEPATITIS C SCREENING HEPATITIS C [facility] Start: 1981 Hepatitis C screening Hepatitis C [facility] Start: 1981 HIV SCREENING HIV SCREENING [facility] Start: 1981 HIV screening HIV Screening [facility] Start: 1963 HEPATITIS B (1 of 3 - 3-dose series) HEPATITIS B (1 of 3 - 3-dose series) [facility] Patient Education Dehydration, Adult (DC) [facility] Work Phone: Patient referral [facility] Work Phone: End: 08-14-2023 XR HIP GENERAL 3V PELV/AP/LAT RIGHT XR HIP GENERAL 3V PELV/AP/LAT RIGHT Radiology Routine Primary osteoarthritis of right hip 1 Occurrences starting 07/15/2022 until 08/14/2023 [facility] Work Phone: Comment on above: 1 Occurrences starti ng 07/15/2022 until 08/14/2023 [facility] c Payers Date Payer Category Payer Self-pay [id number] 2017 Unknown [id number] 1965 Unknown [id number] 2.16.84 [id number] 1963 Unknown [id number] 2.16.84 [id number] 1963 Unknown [id number] 2.16.84 [id number] 1963 Unknown [id number] 2.16.84 [id number] 1963 Unknown [id number] 2.16.84 [id number] 1959 Unknown [id number] Unknown [id number] Unknown [id number] [id number] Social History Date Type Detail Facility Start: 10-14-2015 End: 02-12-2022 Tobacco smoking status ILIS Never smoked tobacco (finding) [facility] Start: 1965 Sex Assigned At Male [facility] Start: 10-14-2015 Tobacco use and exposure Smokeless tobacco non-user [facility] Start: 01-22-2016 End: 09-09-2022 Alcohol intake Current drinker of alcohol (finding) [facility] Start: 10-14-2015 Alcohol Comment monthly [facility] Start: 1965 [facility] Start: 07-10-2022 End: 08-31-2022 Exposure to SARS-CoV-2 (event) Not sure [facility] Start: 09-09-2022 Alcohol Comment monthly maybe [facility] Start: 09-09-2022 End: 10-31-2022 History of Social function [facility] Start: 09-09-2022 End: 10-31-2022 Tobacco use panel [facility] National Score (1-100), lower number is lower risk 82 [facility] Medical Equipment Procedure Code Equipment Code Equipment Origin al Text Equipment Identifier Dates Jib-Gb-E-Kind Implant - [id number] Start: 10-21-2015 Comment on above: Description: Active Articulation head Head I1s-Krhsh Ringloc Standard Offset Cocrmo Femoral Modular 28mm Sterile - [id number] Start: 10-21-2015 Longevity G7 Arc x Ofst Liner 36mm Size H [id number] Start: 09-23-2022 Stem Taperloc 13 3d 13 Pps 34.3mm Femoral Type 1 Taper Complete Reduced - [id number] Start: 09-23-2022 Screw G7 6.5mm Dome 15mm Acetabular Low Profile Hip - [id number] Start: 09-23-2022 Rnv-Rj-J-Kind Implant - [id number] Start: 10-21-2015 Comment on above: Description: Taperlo c Femoral Stem Cup P0k-Coffvx Tri-Brandyn Acetabular 60mm 54mm Hip - [id number] Start: 10-21-2015 Comment on above: Description: M2A Mag num Tri-Brandyn Cup Clinical Notes 07-20-2022 to 12-15-2022 Robert Kahn MD - 12/15/2022 3:39 PM Gilma Gay, RT(R) - 12/15/2022 2:15 PM Shantel Kahn MD - 11/10/2022 3:37 PM Daniella Burch RT(R) - 11/10/2022 3:15 PM ESTPatient Instructions Note Date & Type Note Facility 12-15-2022 Note HNO ID: [id number] Author: Robert Kahn MD Service: ? Author [...] 5) Medication changes aware of dental prophy [facility] 12-15-2022 Note HNO ID: [id number] Author: RT Frandy(R) Service: Radiology Author Type: Technologist Type: Progress [...] RT Frandy(R) December 15, 2022 1:54 PM [facility] 12-15-2022 History of Present illness [...] of dental prophy documented in this encounter [facility] 12-15-2022 History of Present illness Narrative Radiology [...] 2022 1:54 PM documented in this encounter [facility] 11-10-2022 Note HNO ID: [id number] Author: Robert Kahn MD Service: ? Author [...] palpable can consider CSI at month 3. [facility] 11-10-2022 Note HNO ID: [id number] Author: RT Eloy(Jacy) Service: Radiology Author Type: Tentering Machine Off Bearer Type: Progress Notes Filed: 11/10/2022 3:15 PM [...] Farooq/RT Eloy(R) November 10, 2022 3:14 PM [facility] 11-10-2022 History of Present illness [...] at month 3. documented in this encounter [facility] 11-10-2022 History of Present illness Narrative Radiology [...] 2022 3:14 PM documented in this encounter [facility] 10-09-2022 Note HNO ID: [id number] Author: Jacob Singleton PA-C Service: ? Author Type: Physician Jukebox Routeman Type: Progress Notes Filed: 10/09/2022 10:44 AM [...] prescription sent to pharmacy Jacob Singleton PA-C [facility] 10-09-2022 Note HNO ID: [id number] Author: RT Juan Jose(R) Service: Radiology Author [...] Juan Jose(R) October 09, 2022 9:52 AM [facility] 10-09-2022 History of Present illness [...] Jacob Singleton PA-C documented in this encounter [facility] 10-09-2022 History of Present illness Narrative Radiology [...] 2022 9:52 AM documented in this encounter [facility] 09-24-2022 Note HNO ID: [id number] Author: Cheyanne Ray (House Moving Supervisor) Service: ? Author Type: ? Type: Plan [...] or your Primary Care Provider. Cheyanne Ray (House Moving Supervisor) PAGER: yolanda September 24, 2022 3:47 PM [facility] 09-24-2022 Note HNO ID: [id number] Author: Goldie Rosas RN Service: Care Management [...] Name/Phone: Danielle Hernandez MD Other Caregiver Name/Phone: [facility] TRANSPORTATION ARRANGEMENTS: Transportation Arrangements: Car Discharge Information Row Name Admission (Discharged) from 09/23/[address] [facility] Agency [facility] SIGNATURE: Goldie Rosas RN PATIENT NAME: Guy Holloway DATE: September 24, 2022 TIME: 2:00 PM PAGER/CONTACT #: [phone] [facility] 09-24-2022 Note HNO ID: [id number] Author: Goldie Rosas RN Service: Care Management [...] replacement ADVANCE DIRECTIVES Current Advance Directive: None Body Recall Instructor Attempted to Assist with AD Completion: Yes [...] discharge within 30 days: No PATIENT 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 12: Home care can accept and do a 09/29 SOC. Patient notified and knows to cancel his OP PT appointment. SIGNATURE: Goldie Rosas RN PATIENT NAME: Guy Holloway DATE: September 24, 2022 TIME: 11:59 AM CONTACT #: [phone] [facility] 09-23-2022 Note HNO ID: [id number] Author: Robert Kahn MD Service: Orthopaedic Surgery Author Type: Physician Type: Progress Notes Filed: 09/23/2022 6:18 PM Note Text: SP Rt KARTHIK DF PF EHL intact DP2+ No edema XR satisfactory AP SP Rt KARTHIK Neuro vasc intact WBAT Ancef Elequis starting tomorrow [facility] 09-23-2022 Note HNO ID: [id number] Author: Scott Watson APRN.ASSISTANT DEPARTMENT MANAGER Service: ? Author Type: Nurse Fuel Oil Truck Driver Type: Anesthesia Procedure Notes Filed: 09/23/2022 9:30 AM Note Text: ANESTHESIOLOGY PROCEDURE NOTE Airway General Information Procedure Start Time/Medication Administration: 09/23/2022 8:51 AM Patient location during procedure: OR Timeout Performed Pre-procedure: timeout performed Consent Obtained: Yes Patient identity confirmed: arm band and patient Staffing ASSISTANT DEPARTMENT MANAGER: Scott Watson APRN.ASSISTANT DEPARTMENT MANAGER Performed by: ADILENE Indications and Patient [...] September 23, 2022 TIME: 9:23 AM CSN: [id number] [facility] 09-14-2022 Nurse Note ORTHOPAEDIC SURGERY PRE-OP PATIENT Guy Holloway is a 57 year old male PROCEDURE: right Total Hip PROCEDURE DATE: 09/23/22 CHECKLIST: Informed Consent: Yes- In vitalclip [facility]: No Pre-op Skin Preparation Cloths & [...] Effects -Afterhours Number Given- page ortho resident regional vice president life sales at [phone] METHOD OF INSTRUCTION: Individual instruction, Written instruction [...] -Call office if questions/concerns -Afterhour for resident regional vice president life sales INFECTION MANAGEMENT: -Signs and symptoms of an infection -Importance of contacting the physician MEDICATION SIDE EFFECTS: -Side effects associated with the medication that warrant a call to the physician WOUND CARE: -Correct procedure to perform wound care DISCHARGE PLAN: -Patient referred to rapid recovery program and [place] was offered to Patient about [...] plans to go home with OP-PT at [facility]. Patient has walker Yes , cane Yes [...] Gilma Drew RN documented in this encounter [facility] 09-10-2022 Miscellaneous Notes I returned the patient's call regarding requested physical therapy order fax. Order was faxed to the patient's preferred therapy facility to begin the process for his upcoming hip surgery. Patient also requested a letter faxed to his employer stating date of surgery and estimated time off of 3 months. Letter faxed to [facility]-patient's employer. documented in this encounter [facility] 09-08-2022 Miscellaneous Notes LVM for patient to call with the name and phone number of facility he would like to go to for outpatient PT. documented in this encounter [facility] 08-25-2022 Note HNO ID: [id number] Author: Jacob Singleton PA-C Service: ? Author Type: Physician Jukebox Routeman Type: Progress Notes Filed: 08/25/2022 4:05 PM Note Text: Called patient to discuss pre op questions. He consented for a right KARTHIK at his last office visit and consults were placed to vascular surgery or cardiology regarding his history of DVT following contralateral hip replacement. He was seen by Courtney Rosas NP and cleared for orthopedic surgery. I will notify our nurses supervisor that patient is ready to set a surgery date. I spent a total of 7 minutes on the date of the service which included preparing to see the patient, completing clinical documentation, and counseling and educating the patient/family/caregiver. Jacob Singleton PA-C [facility] 08-25-2022 History of Present illness Narrative Called patient to discuss pre op questions. He consented for a right KARTHIK at his last office visit and consults were placed to vascular surgery or cardiology regarding his history of DVT following contralateral hip replacement. He was seen by Courtney Rosas NP and cleared for orthopedic surgery. I will notify our nurses supervisor that patient is ready to set a surgery date. I spent a total of 7 minutes on the date of the service which included preparing to see the patient, completing clinical documentation, and counseling and educating the patient/family/caregiver. Jacob Singleton PA-C documented in this encounter [facility] 08-25-2022 Miscellaneous Notes Patient scheduled for provider phone call today. Patient would like a call back from Dr Kahn regarding his up coming procedure and getting it scheduled. He did all the cardiology steps and he's like a call to discuss where the process it at. Please call and advise. documented in this encounter [facility] 08-18-2022 Note Review of b/p trends at home- remains uncontrolled 139-163/ 75-93. Will add amlodipine 5 mg daily for HTN, staff to call pt and update and ask if he had BMP completed as prescribed at last visit. [facility] 08-12-2022 Note Remains on eliquis anticoagulation [facility] 08-12-2022 Note Remains on Eliquis anticoagulation per PCP [facility] 08-12-2022 Note Currently uncontroll ed in [...] patient next week to review blood pressures [facility] 08-12-2022 Note RCRI- 0???points Class I Risk 3.9???% 30-day risk of , [place], or cardiac arrest EKG today sinus bradycardia [...] left hip surgery he developed extensive DVT/PE. [facility] 08-12-2022 Note UTP CARDIOLOGY PROGR ESS [...] Risk 3.9 % 30-day risk of , [place], or cardiac arrest EKG today sinus bradycardia [...] Remains on eliquis anticoagulation RTC 1-6 months [facility] 07-30-2022 Note HNO ID: [id number] Author: Robert Kahn MD Service: ? Author Type: Physician Type: Progress Notes Filed: 07/30/2022 12:19 PM Note Text: CONSULT ORTHOPAEDIC: HIP PRIMARY CARE PHYSICIAN: Danielle Hernandez MD, MD REFERRING PROVIDER: Kushal Christian [address] [facility] [id number] ASSESSMENT AND PLAN: Impression: Right Hip Severe [...] activities which include walking 2 blocks, doing compounder flavorings, exercise, rising from a sitting position, standing [...] High: dx o (more content not included)... [facility] 07-30-2022 Instructions Jacob Singleton PA-C [...] the next three days at the nearest [facility] lab. If you would like, you can [...] us: If you are having surgery at [facility] or If you are having surgery at [place], [place], [facility], [place], [place], [facility], or [facility] documented in this encounter [facility] 07-30-2022 History of Present illness Narrative CONSULT ORTHOPAEDIC: HIP PRIMARY CARE PHYSICIAN: Danielle Hernandez MD, MD REFERRING PROVIDER: Kushal Christian [address] [facility] [id number] ASSESSMENT & PLAN: Impression: Right Hip Severe [...] activities which include walking 2 blocks, doing compounder flavorings, exercise, rising from a sitting position, standing [...] TIME: 9:28 AM documented in this encounter [facility] 07-23-2022 Note HNO ID: [id number] Author: Kushal Christian MD Service: ? Author Type: Physician Type: Progress Notes Filed: 07/23/2022 11:21 AM Note Text: see dictated not e Kushal Christian II, MD [facility] 07-23-2022 History of Present illness Narrative see dictated not e Kushal Christian II, MD documented in this encounter [facility] 07-20-2022 Note HNO ID: [id number] Author: RT Tri(Jacy) Service: ? Author Type: Tentering Machine Off Bearer Type: Progress Notes Filed: 07/20/2022 12:57 PM [...] RT Tri(R) July 20, 2022 12:57 PM [facility] 07-20-2022 Note HNO ID: [id number] Author: Kushal Christian MD Service: Orthopaedic Surgery Author Type: Physician Type: Progress Notes Filed: 07/28/2022 9:32 AM Note Text: [facility] [address] [place], [place] [address] CLINIC NOTE Department of Orthopaedics - Oren Christian II, M.D. NAME: [facility] [employer] NO.: [id number] DATE OF SERVICE: 07/20/2022 CHIEF COMPLAINT: Severe [...] of his size difficult. I have suggested 29-wh-93-pound weight loss. In the interim, I have suggested that if he wants something done with his hip before, I would see if 1 of our other joint replacement partners had an approach that would be more appropriate for his size. The patient seemed to understand this. We will make arrangements. Dictated By: Kushal Christian II, M.D. Date Dictated: 07/21/2022 Date Typed: ambar 07/21/2022 JOB# [id number] [facility] 07-20-2022 History of Present illness [...] 2022 12:57 PM documented in this encounter [facility] Evaluation note No assessment inform ation available [facility] Work Phone: Evaluation note Diagnosis Primary osteoarthritis of left hip- Primary Primary localized osteoarthrosis, pelvic region and thigh Primary osteoarthritis of right hip Primary localized osteoarthrosis, pelvic region and thigh History of total left hip replacement documented in this encounter [facility] note* Diagnosis Primary osteoarthritis of right hip- Primary Primary localized osteoarthrosis, pelvic region and thigh History of DVT of lower extremity Personal history of venous thrombosis and embolism [facility] Diagnosis Primary osteoarthritis of right hip- Primary Primary localized osteoarthrosis, pelvic region and thigh History of DVT of lower extremity Personal history of venous thrombosis and embolism [facility]* Diagnosis Status post total replacement of right hip- Primary Primary osteoarthritis of right hip Primary localized osteoarthrosis, pelvic region and thigh [facility] Diagnosis Status post right hip replacement- Primary Hip joint replacement by other means [facility] Status post right hip replacement- Primary Hip joint replacement by other means [facility] Diagnosis Status post right hip replacement Hip joint replacement by other means [facility] Diagnosis Status post right hip replacement Hip joint replacement by other means [facility] Diagnosis Pain Generalized pain Preop examination- Primary Preoperative examination, unspecified Primary hypertension Unspecified essential hypertension History of DVT (deep vein thrombosis) Personal history of venous thrombosis and embolism Anticoagulated Long-term (current) use of anticoagulants Class 3 severe obesity with body mass index (BMI) of 40.0 to 44.9 in adult, unspecified obesity type, unspecified whether serious comorbidity present (HCC) documented in this encounter [facility] Discharge instructions Additional Instructions Continue taking your blood pressure medications, stay well-hydrated Return for worsening or changing chest pain, lightheadedness, nausea or vomiting [facility] Work Phone: [facility] Diagnostic Procedure Only (Routine) - Pending Review Specialty Diagnoses / Procedures Referred By Manny peña Referred To Contact XR IMAGING Diagnoses Primary osteoarthritis of right hip Procedures XR HIP GENERAL 3V PELV/AP/LAT RIGHT RADEX HIP UNILATERAL WITH PELVIS 2-3 VIEWS Kushal Christian MD [address] [place] [address] Xr Imaging Referral ID Status Reason Start Date Expiration Date Visits Requested Visits Authorized [id number] Pending Review Auto-Generat ed Referral 2 08/14/2023 1 1 [facility] for referral (narrative)* Diagnostic Procedure Only (Routine) - Closed Specialty Diagnoses / Procedures Referred By Contac t Referred To Contact XR IMAGING Diagnoses Status post right hip replacement Procedures XR HIP GENERAL 3V PELV/AP/LAT RIGHT RADEX HIP UNILATERAL WITH PELVIS 2-3 VIEWS Jacob Singleton PA-C [address] [place] [address] Xr Imaging Referral ID Status Reason Start Date Expiration Date V isits Requested Visits Authorized [id number] Closed Auto-Generate d Referral 10/08/2022 11/07/2023 1 1 [facility] for referral (narrative)* Diagnostic Procedure Only (Routine) - Closed Specialty Diagnoses / Procedures Referred By Contac t Referred To Contact XR IMAGING Diagnoses Status post right hip replacement Procedures XR HIP GENERAL 3V PELV/AP/LAT RIGHT RADEX HIP UNILATERAL WITH PELVIS 2-[place] [address] [place] [address] Xr Imaging Referral ID Status Reason Start Date Expiration Date V isits Requested Visits Authorized [id number] Closed Auto-Generate d Referral 11/10/2022 12/10/2023 1 1 [facility] for referral (narrative)* Diagnostic Procedure Only (Routine) - Closed Specialty Diagnoses / Procedures Referred By Contac t Referred To Contact XR IMAGING Diagnoses Status post right hip replacement Procedures XR HIP GENERAL 3V PELV/AP/LAT RIGHT RADEX HIP UNILATERAL WITH PELVIS 2-3 VIEWS Jacob Singleton PA-C [address] [place] [address] Xr Imaging Referral ID Status Reason Start Date Expiration Date V isits Requested Visits Authorized [id number] Closed Auto-Generate d Referral 12/15/2022 01/08/2024 1 1 [facility] for referral (narrative)* Diagnostic Procedure Only (Routine) - Closed Specialty Diagnoses / Procedures Referred By Contac t Referred To Contact XR IMAGING Diagnoses Status post right hip replacement Procedures XR HIP GENERAL 3V PELV/AP/LAT RIGHT RADEX HIP UNILATERAL WITH PELVIS 2-3 VIEWS Jacob Singleton PA-C [address] [place] [address] [place] [address] Referral ID Status Reason Start Date Expiration Date V isits Requested Visits Authorized [id number] Closed Auto-Generate d Referral 12/15/2022 01/08/2024 1 1 [facility] for referral (narrative)* Diagnostic Procedure Only (Routine) - Closed Specialty Diagnoses / Procedures Referred By Contac t Referred To Contact XR IMAGING Diagnoses Status post right hip replacement Procedures XR HIP GENERAL 3V PELV/AP/LAT RIGHT RADEX HIP UNILATERAL WITH PELVIS 2-[place] [address] [place] [address] [place] [address] Referral ID Status Reason Start Date Expiration Date V isits Requested Visits Authorized [id number] Closed Auto-Generate d Referral 11/10/2022 12/10/2023 1 1 [facility] for referral (narrative)* Diagnostic Procedure Only (Routine) - Closed Specialty Diagnoses / Procedures Referred By Contac t Referred To Contact XR IMAGING Diagnoses Status post right hip replacement Procedures XR HIP GENERAL 3V PELV/AP/LAT RIGHT RADEX HIP UNILATERAL WITH PELVIS 2-3 VIEWS Jacob Singleton PA-C [address] [place] [address] [place] [address] Referral ID Status Reason Start Date Expiration Date V isits Requested Visits Authorized [id number] Closed Auto-Generate d Referral 10/08/2022 11/07/2023 1 1 [facility] for referral (narrative)* Diagnostic Procedure Only (Routine) - Closed Specialty Diagnoses / Procedures Referred By Contac t Referred To Contact XR IMAGING Diagnoses Pain Procedures XR HIP GENERAL 3V PELV/AP/LAT RIGHT RADEX HIP UNILATERAL WITH PELVIS 2-3 VIEWS Kushal Christian MD [address] [place] [address] [place] [address] Referral ID Status Reason Start Date Expiration Date V isits Requested Visits Authorized [id number] Closed Auto-Generate d Referral 07/14/2022 08/13/2023 1 1 [facility] for visit Narrative* Diagnostic Procedure Only (Routine) - Closed Specialty Diagnoses / Procedures Referred By Contac t Referred To Contact XR IMAGING Diagnoses Pain Procedures XR HIP GENERAL 3V PELV/AP/LAT RIGHT RADEX HIP UNILATERAL WITH PELVIS 2-3 VIEWS Kushal Christian MD [address] [place] [address] [place] [address] Referral ID Status Reason Start Date Expiration Date V isits Requested Visits Authorized [id number] Closed Auto-Generate d Referral 07/14/2022 08/13/2023 1 1 [facility] Chief Complaint and Reason for Visit Chief [...] extremity Procedures CONSULT TO VASCULAR MEDICINE OFFICE/OUTPATIENT NEW [facility] MDM 60-74 MINUTES Jacob Singleton PA-C [address] [place] [address] Referral ID Status Reason Start Date Expiration Date Visits Requested Visits Authorized [id number] Authorized PCP Requested Referral 2 07/30/2023 1 1 Specialty Diagnoses / Procedures Referred By Contac t Referred To Contact [facility] Diagnoses Status post total replacement of right hip Procedures CONSULT TO PHYSICAL THERAPY PHYSICAL THERAPY EVALUATION HIGH COMPLEX 45 MINS Jacob Singleton PA-C [address] [place] [address] [facility] [place] [address] [place] [address] Referral ID Status Reason Start Date Expiration Date Visits Requested Visits Authorized [id number] Pending Review Auto-Generat ed Referral 09/10/2022 09/10/2023 1 1 Additional Source Comments Care Teams (unrecognized sec tion and content) Team Status: Inactive Member Role Status Dates Danielle Hernandez MD Primary Care Provider Active Brendon Mcnamara DO Emergency Provider Active Norberto Booker MD RES Active Team Status: Active Member Role Status Dates Danielle Hernandez MD Primary Care Provider Active Market Sales Manager Relationship Specialty Start Date End Date Danielle Hernandez MD PCP - General Family Medicine 08/19/15 Market Sales Manager Relationship Specialty Start Date End Date Danilele Hernandez MD PCP - General Family Medicine 08/19/15 Market Sales Manager Relationship Specialty Start Date End Date Danielle Hernandez MD PCP - General Family Medicine 08/19/15 Market Sales Manager Relationship Specialty Start Date End Date Danielle Hernandez MD PCP - General Family Medicine 08/19/15 Market Sales Manager Relationship Specialty Start Date End Date Danielle Hernandez MD PCP - General Family Medicine 08/19/15 Market Sales Manager Relationship Specialty Start Date End Date Danielle Hernandez MD PCP - General Family Medicine 08/19/15 Market Sales Manager Relationship Specialty Start Date End Date Danielle Hernandez MD PCP - General Family Medicine 08/19/15 Market Sales Manager Relationship Specialty Start Date End Date Danielle Hernandez MD PCP - General Family Medicine 08/19/15 Market Sales Manager Relationship Specialty Start Date End Date Danielle Hernandez MD PCP - General Family Medicine 08/19/15 Market Sales Manager Relationship Specialty Start Date End Date Danielle Hernandez MD PCP - General Family Medicine 08/19/15 Market Sales Manager Relationship Specialty Start Date End Date Danielle Hernandez MD PCP - General Family Medicine 08/19/15 Market Sales Manager Relationship Specialty Start Date End Date Danielle [...] section and content) DATE CREATED AUTHOR 05/16/2022 [facility] DATE CREATED AUTHOR AUTHOR'S ORGANIZ ATION 08/22/2022 [facility] DATE CREATED AUTHOR AUTHOR'S ORGANIZ ATION 09/05/2022 [facility] DATE CREATED AUTHOR AUTHOR'S ORGANIZ ATION 09/29/2022 [facility] DATE CREATED AUTHOR AUTHOR'S ORGANIZ ATION 11/07/2022 [facility] DATE CREATED AUTHOR AUTHOR'S ORGANIZ ATION 12/17/2022 [facility] Source Comments (unrecognize d section and content) In the event this informatio n is protected by the Federal Confidentiality of Alcohol and Drug Abuse Patient Records regulations: The Federal rules restrict any use of the information to criminally investigate or prosecute any alcohol or drug abuse patient.[facility] the event this information is protected by the Federal Confidentiality of Alcohol and Drug Abuse Patient Records regulations: The Federal rules restrict any use of the information to criminally investigate or prosecute any alcohol or drug abuse patient.[facility] the event this information is protected by the Federal Confidentiality of Alcohol and Drug Abuse Patient Records regulations: The Federal rules restrict any use of the information to criminally investigate or prosecute any alcohol or drug abuse patient.[facility] the event this information is protected by the Federal Confidentiality of Alcohol and Drug Abuse Patient Records regulations: The Federal rules restrict any use of the information to criminally investigate or prosecute any alcohol or drug abuse patient.[facility] the event this information is protected by the Federal Confidentiality of Alcohol and Drug Abuse Patient Records regulations: The Federal rules restrict any use of the information to criminally investigate or prosecute any alcohol or drug abuse patient.[facility] the event this information is protected by the Federal Confidentiality of Alcohol and Drug Abuse Patient Records regulations: The Federal rules restrict any use of the information to criminally investigate or prosecute any alcohol or drug abuse patient.[facility] Hospital[facility] the event this information is protected by the Federal Confidentiality of Alcohol and Drug Abuse Patient Records regulations: The Federal rules restrict any use of the information to criminally investigate or prosecute any alcohol or drug abuse patient.[facility] Hospital[facility] the event this information is protected by the Federal Confidentiality of Alcohol and Drug Abuse Patient Records regulations: The Federal rules restrict any use of the information to criminally investigate or prosecute any alcohol or drug abuse patient.[facility] the event this information is protected by the Federal Confidentiality of Alcohol and Drug Abuse Patient Records regulations: The Federal rules restrict any use of the information to criminally investigate or prosecute any alcohol or drug abuse patient.[facility] Hospital[facility] the event this information is protected by the Federal Confidentiality of Alcohol and Drug Abuse Patient Records regulations: The Federal rules restrict any use of the information to criminally investigate or prosecute any alcohol or drug abuse patient.[facility] Hospital[facility] the event this information is protected by the Federal Confidentiality of Alcohol and Drug Abuse Patient Records regulations: The Federal rules restrict any use of the information to criminally investigate or prosecute any alcohol or drug abuse patient.[facility] Hospital[facility] the event this information is protected by the Federal Confidentiality of Alcohol and Drug Abuse Patient Records regulations: The Federal rules restrict any use of the information to criminally investigate or prosecute any alcohol or drug abuse patient.[facility] HospitalIn the event this information is protected by the Federal Confidentiality of Alcohol and Drug Abuse Patient Records regulations: The Federal rules restrict any use of the information to criminally investigate or prosecute any alcohol or drug abuse patient.[facility] Hospital[facility] the event this information is protected by the Federal Confidentiality of Alcohol and Drug Abuse Patient Records regulations: The Federal rules restrict any use of the information to criminally investigate or prosecute any alcohol or drug abuse patient.[facility] HospitalIn the event this information is protected by the Federal Confidentiality of Alcohol and Drug Abuse Patient Records regulations: The Federal rules restrict any use of the information to criminally investigate or prosecute any alcohol or drug abuse patient.[facility] Hospital[facility] the event this information is protected by the Federal Confidentiality of Alcohol and Drug Abuse Patient Records regulations: The Federal rules restrict any use of the information to criminally investigate or prosecute any alcohol or drug abuse patient.[facility] Reason for Visit (unrecogniz ed section and [...] WITH PELVIS 2-3 VIEWS Jacob Singleton PA-C [address] [place] [address] [place] [address] Referral ID Status Reason Start Date Expiration Date V isits Requested Visits Authorized [id number] Closed Auto-Generate d Referral 12/15/2022 01/08/2024 1 1 Reason Comments Radio Gen RMP Specialty Diagnoses / Procedures Referred By Contac t Referred To Contact XR IMAGING Diagnoses Status post right hip replacement Procedures XR HIP GENERAL 3V PELV/AP/LAT RIGHT RADEX HIP UNILATERAL WITH PELVIS 2-[place] [address] [place] [address] [place] [address] Referral ID Status Reason Start Date Expiration Date V isits Requested Visits Authorized [id number] Closed Auto-Generate d Referral 11/10/2022 12/10/2023 1 1 Referral ID Status Reason Start Date Expiration Date V isits Requested Visits Authorized [id number] Closed Auto-Generate d Referral 10/08/2022 11/07/2023 1 [...] BE BASED ON THE PRIMARY CLINICAL RECORDS. [facility]. provides no warranty or guarantee of the accuracy or completeness of information in this document.
[2025-03-14 00:03] LABS: Basophils Percent Auto 0.4 % (0.2-2.0); Eosinophils Absolute Auto 0.2 10^3/uL (0.0-0.7); Eosinophils Percent Auto 2.9 % (0.9-7.0); Hemoglobin 15.9 g/dL (14.0-18.0); Immature Granulocytes Abs Auto 0.03 10^3/uL (0.00-0.03); Immature Granulocytes Pct Auto 0.4 % (0.0-0.5); Lymphocytes Absolute Auto 2.3 10^3/uL (1.2-3.8); Lymphocytes Percent Auto 29.4 % (20.5-60.0); Mean Corpuscular HGB Conc 34.6 g/dL (29.9-35.2); Mean Corpuscular Hemoglobin 29.9 pg (25.9-34.0); Mean Corpuscular Volume 86.6 fL (80.0-94.0); Monocytes Absolute Auto 0.7 10^3/uL (0.3-0.8); Monocytes Percent Auto 8.5 % (1.7-12.0); Neutrophils Absolute Auto 4.5 10^3/uL (1.4-6.5); Neutrophils Percent Auto 58.4 % (43.0-75.0); Platelet Count 153 10^3/uL (150-450); Red Blood Count 5.31 10^6/uL (4.70-6.10); Red Cell Distribution Width 13.6 % (11.0-15.0); White Blood Count 7.7 10^3/uL (4.0-11.0)
[2025-03-14 00:12] LABS: Anion Gap 12.5; BUN Creatinine Ratio 29.9; Calcium 9.4 mg/dL (8.5-10.1); Carbon Dioxide 28.1 mmol/L (21.0-32.0); Chloride 104 mmol/L (98-107); Estimated GFR (African America >60 (>=60 mL/min/1.73m^2); Estimated GFR (Non-African Ame >60 (>=60 mL/min/1.73m^2); Glucose 112 mg/dL (74-106); Potassium 3.6 mmol/L (3.5-5.1); Sodium 141 mmol/L (136-145)
--- NOTE | 2025-03-14 00:26 | ED.ABDPAIN1 ---
HPI - Abdominal Pain General Chief Complaint: Abdominal Pain Stated Complaint: ABDOMINAL PAIN Time Seen by Provider: 03/13/25 23:32 Source: patient Mode of arrival: walk-in History of Present Illness HPI narrative: 59-year-old male to the emergency department chief complaint of abdominal pain. It is located in the left lower quadrant. It began on Wednesday. He denies any fever, sweats, chills. No nausea or vomiting. He is moving his bowels without difficulty. Denies any diarrhea or blood in the stool. Pain is worse with movement or bumps. He has never had pain like this before. He has had a colonoscopy where he was told he had diverticular disease. Past medical history: PE, HTN Past surgical history: Cholecystectomy Related Data Home Medications ?Medication ?Instructions ?Recorded ?Confirmed apixaban 5 mg tablet (Eliquis) 5 mg PO 04/03/24 hydrochlorothiazide 25 mg tablet 25 mg PO DAILY 04/03/24 03/14/25 lisinopril 40 mg tablet 40 mg PO DAILY 04/03/24 03/14/25 metoprolol succinate 25 mg 25 mg PO DAILY 04/03/24 03/14/25 tablet,extended release 24 hr Allergies Allergy/AdvReac Type Severity Reaction Status Date / Time No Known Drug Allergies Allergy Verified 04/03/24 01:27 Review of Systems ROS Status of ROS 10 or more systems reviewed and unremarkable except as noted in history and below PFSH PFSH Social History Little interest or pleasure in doing things: not at all Feeling down, depressed, or hopeless: not at all Exam Narrative Exam Narrative: VITALS: I have reviewed the triage vital signs. GENERAL: Well developed, well appearing adult in no acute distress. NEURO: Alert and oriented. Moves all extremities. Face is symmetric and expressive. EYES: PERRL. No scleral icterus or conjunctival injection. No discharge. HENT: Normocephalic, atraumatic. Hearing is grossly intact. Nares grossly patent and without discharge. Mucous membranes moist. NECK: No JVD. Patient moves neck without restriction. CARDIO: Rhythm regular. Normal rate. No murmur, rub, or gallop. Pulses equal bilaterally in the upper and lower extremity. No lower extremity edema. PULM: Lungs clear to auscultation in all pradhan. No wheezes, rales, or rhonchi. No conversational dyspnea. No splinting, stridor, or accessory muscle use. GI/: Abdomen is soft and non-tender. Normoactive bowel sounds. EXTREMITIES: Symmetric muscle bulk. No joint swelling. No clubbing, cyanosis, or deformity. SKIN: Warm and dry. Normal turgor. No rash or lesions appreciated. PSYCH: Mood, affect, and interaction is appropriate to the setting. Constitutional Vital Signs, click to edit/add: Last Vital Signs Temp 97.3 F L 03/13/25 23:36 Pulse 72 03/13/25 23:36 Resp 16 03/13/25 23:36 BP 149/91 H 03/13/25 23:36 Pulse Ox 96 03/13/25 23:36 O2 Del Method Room Air 03/13/25 23:36 Course Vital Signs Vital signs: Vital Signs Temperature 97.3 F L 03/13/25 23:36 Pulse Rate 72 03/13/25 23:36 Respiratory Rate 16 03/13/25 23:36 Blood Pressure 149/91 H 03/13/25 23:36 Pulse Oximetry 96 03/13/25 23:36 Oxygen Delivery Method Room Air 03/13/25 23:36 Temperature 97.3 F L 03/13/25 23:36 Pulse Rate 72 03/13/25 23:36 Respiratory Rate 16 03/13/25 23:36 Blood Pressure 149/91 H 03/13/25 23:36 Pulse Oximetry 96 03/13/25 23:36 Oxygen Delivery Method Room Air 03/13/25 23:36 MDM - Abdominal Pain MDM Narrative Medical decision making narrative: 59-year-old male to the emergency department with chief complaint of left lower quadrant abdominal pain. Vital stable, the patient is afebrile. Basic labs, CT scan ordered. He declines any pain or nausea medication. Lab work reviewed and noted. No significant abnormalities. CT scan concerning for epiploic appendagitis. Discussed diagnosis with the patient. Discussed expected clinical course. I offered pain medication he declined. He will follow-up with his PCP. Return to the ED if he worsens. Return precautions were discussed. All questions were answered. The patient was discharged home. Medical Records Attestation: I reviewed the patient's medical records. Lab Data Attestation: I reviewed the patient's lab results. Labs: Lab Results 03/13/25 03/14/25 Range/Units 23:55 02:15 WBC 7.7 (4.0-11.0) 10^3/uL RBC 5.31 (4.70-6.10) 10^6/uL Hgb 15.9 (14.0-18.0) g/dL Hct 46.0 (42.0-54.0) % MCV 86.6 (80.0-94.0) fL MCH 29.9 (25.9-34.0) pg MCHC 34.6 (29.9-35.2) g/dL RDW 13.6 (11.0-15.0) % Plt Count 153 (150-450) 10^3/uL MPV 10.0 (9.5-13.5) fL Neut % (Auto) 58.4 (43.0-75.0) % Lymph % (Auto) 29.4 (20.5-60.0) % [place] % (Auto) 8.5 (1.7-12.0) % Eos % (Auto) 2.9 (0.9-7.0) % Baso % (Auto) 0.4 (0.2-2.0) % Neut # (Auto) 4.5 (1.4-6.5) 10^3/uL Lymph # (Auto) 2.3 (1.2-3.8) 10^3/uL [place] # (Auto) 0.7 (0.3-0.8) 10^3/uL Eos # (Auto) 0.2 (0.0-0.7) 10^3/uL Baso # (Auto) 0.0 (0.0-0.1) 10^3/uL Abs Immat Gran (auto) 0.03 (0.00-0.03) 10^3/uL Imm/Tot Granulo (auto) 0.4 (0.0-0.5) % Sodium 141 (136-145) mmol/L Potassium 3.6 (3.5-5.1) mmol/L Chloride 104 (98-107) mmol/L Carbon Dioxide 28.1 (21.0-32.0) mmol/L Anion Gap 12.5 BUN 29.0 H (7.0-18.0) mg/dL Creatinine 0.97 (0.70-1.30) mg/dL Est GFR ( Amer) >60 (>=60 mL/min/1.73m^2) Est GFR (Non-Af Amer) >60 (>=60 mL/min/1.73m^2) BUN/Creatinine Ratio 29.9 Glucose 112 H (74-106) mg/dL Calcium 9.4 (8.5-10.1) mg/dL Urine Color Yellow (YELLOW) Urine Clarity Clear (CLEAR) Urine pH 6.0 (5.0-9.0) Ur Specific [place] 1.010 (1.005-1.025) Urine Protein Negative (NEG/TRACE) mg/dL Urine Glucose (UA) Negative (NEGATIVE) mg/dL Urine Ketones Negative (NEGATIVE) mg/dL Urine Occult Blood Negative (NEGATIVE) Urine Nitrite Negative (NEGATIVE) Urine Bilirubin Negative (NEGATIVE) Urine Urobilinogen 1.0 (0.2-1.0) EU/dL Ur Leukocyte Esterase Negative (NEGATIVE) Urine RBC None seen (0-2) #/HPF Urine WBC None seen (NONE SEEN) #/HPF Ur Squamous Epith Cells None seen (NONE/RARE) #/LPF Urine Crystals None seen (None Seen) #/HPF Urine Bacteria None seen (NONE SEEN) #/HPF Urine Casts None seen (NONE SEEN) #/LPF Urine Mucus None seen (NONE SEEN) Ur Culture Indicated? No Imaging Data CT scan - abdomen: Attestation: I have reviewed the pertinent imaging results. Radiologist's impression: See separate PACS document Discharge Plan Discharge Chief Complaint: Abdominal Pain Clinical Impression: Epiploic appendagitis Patient Disposition: Home, Self-Care Time of Disposition Decision: 03:46 Condition: Good Mode of Transportation: Private Vehicle Prescriptions / Home Meds: No Action hydrochlorothiazide 25 mg tablet 25 mg PO DAILY metoprolol succinate 25 mg tablet extended release 24 hr 25 mg PO DAILY lisinopril 40 mg tablet 40 mg PO DAILY Eliquis 5 mg tablet 5 mg PO Print Language: Armenian Instructions: Abdominal Pain (ED) Additional Instructions: Call the office of your primary care doctor to arrange for follow-up within the above-stated timeframe. Your ED visit was focused on your acute issue and does not replace primary care. You should review your labs, imaging, and diagnoses from this ED visit with your primary care physician. There may be non-emergent/ incidental findings that need further evaluation. You should review your vital signs including blood pressure with your PCP. If you were prescribed medications you should discuss possible side-effects and drug interactions with your pharmacist. Call 911 or go to the nearest Emergency Department if you develop any new or worsening symptoms. Seek immediate medical attention if you develop: worsening abdominal pain, new or worsening nausea, new or worsening vomiting, new or worsening diarrhea, chest pain, shortness of breath, pain with urination, problems urinating, fever, chills, weakness, or any new or worsening symptoms. Referrals: Benjy Sinha MD [Primary Care Provider, Family Practice] - 1 week
[2025-03-14 02:40] LABS: Bilirubin Urine NEGATIVE (NEGATIVE); Blood Urine NEGATIVE (NEGATIVE); Clarity Urine CLEAR (CLEAR); Color Urine YELLOW (YELLOW); Glucose Urine UA NEGATIVE (NEGATIVE); Ketones Urine NEGATIVE (NEGATIVE); Leukocyte Esterase Urine NEGATIVE (NEGATIVE); Nitrite Urine NEGATIVE (NEGATIVE); Protein Urine NEGATIVE (NEG/TRACE)
[2025-03-14 02:46] LABS: Bacteria Urine NONE SEEN #/HPF (NONE SEEN); Cast Seen? NONE SEEN #/LPF (NONE SEEN); Crystals Seen? None Seen #/HPF (None Seen); Mucus Urine NONE SEEN (NONE SEEN); RBC Urine NONE SEEN #/HPF (0-2); Squamous Epithelial Cell Urine NONE SEEN #/LPF (NONE/RARE); Urine Culture Indicated NO; WBC Urine NONE SEEN #/HPF (NONE SEEN)
== END 2025-03-14 04:05 | disposition home or self-care (01) ==
PROVIDERS: Emergency Provider Student in an Organized Health Care Education/Training Program; PCP Family Medicine
DX: R10.32 Left lower quadrant pain (principal); K63.89 Other specified diseases of intestine; K57.90 Diverticulosis of intestine, part unspecified, without perforation or abscess without bleeding
CPT/HCPCS: 36415; 74177; 80048; 81001; 85025; 99285; Q9967

== ENCOUNTER 2025-03-25 14:27 | Emergency (ER) | payer BC, SELFPAY ==
--- OUTSIDE RECORDS SUMMARY | 2024-04-06 07:59 | XMS_ITS ---
Author Organization [facility] Address [address] [place] [address] Care Team Providers Care Pot Puller Name Role Phone Kashmir Hernandez Primary Care Provider [phone] DANIELLE HERNANDEZ Unavailable [phone] REASON FOR VISIT new onset DM Medications Medication SIG (Take, Route, Fr equency, Duration) Notes Start Date End Date Status Lancets 33G - Use 1 lancet to reed tor glucose once daily DX E11.9 for 90 days 04/07/2024 Active Blood Glucose Meter -- Use monitor to mo nitor glucose once daily DX E11.9 for 365 days 04/07/2024 Active Test Strips - Use 1 strip to monit or glucose via meter once daily DX E11.9 for 90 days 04/07/2024 Active Problems Problem Type SNOMED Code ICD Code Onset Dates Problem Status W/U Status Risk Notes Problem Diabetes mellitus (76369235) Diabetes mellitus (E11.9) Active confirmed Encounters Encounter Location Date Provider Diagnosis [facility] [address] [place] [address] 04/06/2024 DANIELLE HERNANDEZ Plan Of Treatment Medication Medication Name Sig Start Date Stop Date Notes Lancets 33G - Use 1 lancet to reed tor glucose once daily DX E11.9 for 90 days 04/07/2024 Blood Glucose Meter -- Use monitor to mo nitor glucose once daily DX E11.9 for 365 days 04/07/2024 Test Strips - Use 1 strip to monit or glucose via meter once daily DX E11.9 for 90 days 04/07/2024 Progress Notes * Guy ROY LDOB:10/1964 (58 yo M)Acc No.[id number]:04/06/2024 Patient: Guy CONDE :1965 A ge:58 Y S ex:Male Address:[address] [place] [id number] * Refills Start Lancets 33G Miscellaneous, -, 100, Use 1 lancet to monitor glucose once daily DX E11.9, 90 days, Refills=3 Start Test Strips -, -, 100, Use 1 strip to monitor glucose via meter once daily DX E11.9, 90 days, Refills=3 Start Blood Glucose Meter --, --, 1, Use monitor to monitor glucose once daily DX E11.9, 365 days, Refills=0 * true * Date: Generated for Esa whitfield/Sondra/Sixtoitting on: 0 03/25/2025 02:32 PM EDT
--- OUTSIDE RECORDS SUMMARY | 2024-05-08 09:07 | XMS_ITS ---
Author Organization [facility] in [place] Address [address] [place] [address] Care Team Providers Care Data Coordinator Name Role Phone Kashmir Sinha Primary Care Provider REASON FOR VISIT rf HCTZ Medications Medication SIG (Take, Route, Frequency, Duration) Notes Start Date End Date Status Eliquis 5 MG TAKE 1 TABLET Orally Twice a day for 30 days Active Blood Glucose Meter -- Use monitor to mo nitor glucose once daily DX E11.9 for 365 days 04/07/2024 Active Lisinopril 40 MG TAKE 1 TABLET BY HANDY TH EVERY DAY IN THE MORNING for 30 Active Metoprolol Succinate ER 25 MG 1 tablet O rally Once a day for 90 days Active Test Strips - Use 1 strip to monit or glucose via meter once daily DX E11.9 for 90 days 04/07/2024 Active hydroCHLOROthiazide 25 MG 1 tablet Orall y Once a day for 30 days Active Lancets 33G - Use 1 lancet to monitor glucose once daily DX E11.9 for 90 days 04/07/2024 Active Encounters Encounter Location Date Provider Diagnosis [facility] [address] [place] [address] 05/08/2024 Kashmir Bharath Plan Of Treatment Medication Medication Name Sig Start Date Stop Date Notes hydroCHLOROthiazide 25 MG 1 tablet Orall y Once a day for 30 days Progress Notes * Guy ROY LDOB:10/1964 (58 yo M)Acc No.[id number]:05/08/2024 Patient: Lacey Guy TEJADA :1965 A ge:58 Y S ex:Male Address:[address] [place] [id number] * Refills Refill hydroCHLOROthiazide Tablet, 25 MG, Orally, 30 Tablet, 1 tablet, Once a day, 30 days, Refills=11 Subjective: * Chief Complaints: * r f HCTZ * Medical History: * Surgical History: * Hospitalization/Major Diagno stic Procedure: * Medications: T akingBlood Glucose Meter -- -- Use monitor to monitor glucose once daily DX E11.9 Eliquis(Apixaban) 5 MG Tablet TAKE 1 TABLET Orally Twice a day hydroCHLOROthiazide 25 MG Tablet 1 tablet Orally Once a day Lancets 33G(Lancets) - Miscellaneous Use 1 lancet to monitor glucose once daily DX E11.9 Lisinopril 40 MG Tablet TAKE 1 TABLET BY MOUTH EVERY DAY IN THE MORNING Metoprolol Succinate ER 25 MG Tablet Extended Release 24 Hour 1 tablet Orally Once a day Test Strips - - Use 1 strip to monitor glucose via meter once daily DX E11.9 Taking Blood Glucose Meter -- -- Use monitor to monitor glucose once daily DX E11.9 Taking Eliquis(Apixaban) 5 MG Tablet TAKE 1 TABLET Orally Twice a day Taking hydroCHLOROthiazide 25 MG Tablet 1 tablet Orally Once a day Taking Lancets 33G(Lancets) - Miscellaneous Use 1 lancet to monitor glucose once daily DX E11.9 Taking Lisinopril 40 MG Tablet TAKE 1 TABLET BY MOUTH EVERY DAY IN THE MORNING Taking Metoprolol Succinate ER 25 MG Tablet Extended Release 24 Hour 1 tablet Orally Once a day Taking Test Strips - - Use 1 strip to monitor glucose via meter once daily DX E11.9 DiscontinuedCefdinir 300 MG Capsule as directed Orally once a day Doxycycline Monohydrate 100 MG Capsule 1 capsule Orally bid [id number]-[id number] Suspension 2 gtt Ophthalmic QID Pramipexole Dihydrochloride 0.5 MG Tablet TAKE 1 TABLET BY MOUTH AT BEDTIME MAY INCREASE TO 2 TABS IF 1 DOES NOT HELP Medication List reviewed and reconciled with the patientDiscontinued Cefdinir 300 MG Capsule as directed Orally once a day Discontinued Doxycycline Monohydrate 100 MG Capsule 1 capsule Orally bid Discontinued [id number]-Ngvspwxbs-NX 3.5-92457-6 Suspension 2 gtt Ophthalmic QID Discontinued Pramipexole Dihydrochloride 0.5 MG Tablet TAKE 1 TABLET BY MOUTH AT BEDTIME MAY INCREASE TO 2 TABS IF 1 DOES NOT HELP Medication List reviewed and reconciled with the patient Objective: * Vitals: * Physical Examination: Assessment: Plan: * Treatment: * Procedure Codes: * true * Date: Generated for Esa whitfield/Sondra/Zarina on: 0 03/25/2025 02:32 PM EDT
--- OUTSIDE RECORDS SUMMARY | 2025-03-14 08:39 | XMS_ITS ---
Author Organization [facility] in [place] Address [address] [place] [address] Care Team Providers Care Cane Flume Feeding Machine Operator Name Role Phone Kashmir Sinha Primary Care Provider REASON FOR VISIT ER Medications Medication SIG (Take, Route, Frequency, Duration) Notes Start Date End Date Status CeleBREX 100 MG 1 capsule Orally Onc e a day for [address] Bharath beaulieu with this along with Eliquis for short script 03/14/2025 Active Encounters Encounter Location Date Provider Diagnosis [facility] [address] [place] [address] 03/14/2025 Kashmir Sinha Plan Of Treatment Medication Medication Name Sig Start Date Stop Date Notes CeleBREX 100 MG 1 capsule Orally Onc e a day for 10 days 03/14/2025 Dr Bharath beaulieu with this along with Eliquis for short script Progress Notes * Guy ROY LDOB:10/1964 (59 yo M)Acc No.[id number]:03/14/2025 Patient: Lacey GROVEGuy ANDERSON :1965 A ge:59 Y S ex:Male Address:[address] [place] [id number] * Refills Start CeleBREX Capsule, 100 MG, Orally, 10 Capsule, 1 capsule, Once a day, 10 days, Refills=0 * true * Date: Generated for Printi ng/Faxing/eTransmitting on: 0 03/25/2025 02:32 PM EDT
[2025-03-25 14:31] VITALS: BP 132/78; PULSE 64; TEMP 36.5; O2SAT 96; BMI 34.7
--- OUTSIDE RECORDS SUMMARY | 2025-03-25 14:32 | XMS_ITS | Clinical Summary ---
Author Organization [facility] Address [address] [place] [address] Care Team Providers Care Guest Room Attendant Name Role Phone Unavailable Primary Care Provider Unavailabl e Social History Tobacco Use Types Packs/Day Years Used Date Smoking Tobacco: Never Assessed Sex and Gender Information Value Date Recorded Sex Assigned at Not on file Legal Sex Male 6:39 PM EDT Gender Identity Not on file Sexual Orientation Not on file Plan of Treatment Not on file Insurance BS
--- OUTSIDE RECORDS SUMMARY | 2025-03-25 14:32 | XMS_ITS | CCD ---
Author Organization [facility] CliniSyla Care Team Providers Care Director Of Supply Chain Name Role Phone MD Danielle Hernandez Primary Care Provider [phone] DO Brendon Mcnamara Emergency Provider [phone] Danielle Hernandez MD Primary Care Provider [phone] COURTNEY ROSAS Attending Unavailable Danielle Hernandez MD Primary Care Provider [phone] MARY, DR SANTOS Primary Care Unavailable MARY, [...] Unavailable Danielle Hernandez MD Primary Care Provider [phone] JACOB SINGLETON Referring Unavailable HOYKASHMIRDANIELLE M Primary [...] Unavailable Danielle Hernandez MD Primary Care Provider [phone] Medications Current Medications Medication Drug Class(es) Dates Sig (Normalized) Sig (Original) lisinopril 20 mg oral tablet (16 sources) Angiotensin Converting Enzyme Inhibitor Start: 10-14-2015 take 1 tablet by mouth once daily lisinopril (ZESTRIL, PRINIVIL) 20 mg tablet Take 1 tablet by mouth once daily. 0 10/14/2015 Active Comment on above: [facility] Completed/Discontinued Medications Medication Drug Class(es) Dates Sig (Normalized) Sig (Original) acetaminophen 500 mg oral tablet (6 sources) Start: 09-24-20 22 take 2 tablets by mouth every eight hours acetaminophen (TYLENOL) 500 mg tablet Take 2 tablets by mouth every 8 hours. 180 tablet 0 09/24/2022 Active Comment on above: Take 2 tablets by mo [facility] every 8 hours. 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] Onset: 03-26-2022 Episodic Other aftercare (9 sources) Drug therapy finding; Translations: [[facility] (current) use of anticoagulants] Onset: 09-09-2022 09-09-2022 [...] CNOV Office Visit (ORAVON ) GUY HOLLOWAY ([id number]) 1965 M Date Time Provider Department 12/15/22 [...] of dental prophy Referring Provider: ROBERT KAHN [[id number]] Allergies As of Date: 12/15/2022 (No Known Allergies) Date Reviewed: 12/15/2022 Reviewed by: Connie Bennett MA - Fully Assessed Reason for Visit: Post Op [174] Primary Visit Diagnosis:Status post right hip replacement [Z96.641] Order(s):XR HIP GENERAL 3V PELV/AP/LAT RIGHT [[id number]] Order #: [id number] FUTURE Prescriptions as of 12/15/2022 - amoxicillin [...] Status:Closed by ROBERT KAHN on 12/15/22 Normal [facility] No Panel Informationon 12-15 [facility] XR HIP 3V PELV+ AP/LAT RTon 12-15-2022 [...] in place with no evidence of complications. Canvas Shop Laborer: RONNELL Transcribe Date/Time: Dec 15 2022 2:03P Dictated by : RACHEL NICHOLE MD This examination was interpreted and the report reviewed and electronically signed by: RACHEL NICHOLE MD on Dec 15 2022 2:04PM EST [id number] Normal [facility] CNOVon 11-10-2022 CNOV Office Visit (ORAVON ) GUY HOLLOWAY ([id number]) 1965 M Date Time Provider Department 11/10/22 [...] at month 3. Referring Provider: ROBERT KAHN [[id number]] Allergies As of Date: 11/10/2022 (No Known Allergies) Date Reviewed: 11/10/2022 Reviewed by: Connie Bennett MA - Fully Assessed Reason for Visit: Post Op [174] Primary Visit Diagnosis:Status post right hip replacement [Z96.641] Order(s):XR HIP GENERAL 3V PELV/AP/LAT RIGHT [[id number]] Order #: [id number] FUTURE Prescriptions as of 11/10/2022 - amoxicillin [...] Status:Closed by ROBERT KAHN on 11/10/22 Normal [facility] Panel Informationon 11-10 [facility] XR HIP 3V PELV+ AP/LAT RTon 11-10-2022 [...] hip arthroplasty in place with intact hardware. Canvas Shop Laborer: PSCB Transcribe Date/Time: Nov 10 2022 3:49P Dictated by : RACHEL NICHOLE MD This examination was interpreted and the report reviewed and electronically signed by: RACHEL NICHOLE MD on Nov 10 2022 3:52PM EST [id number] Normal [facility] CNOVon 10-09-2022 CNOV Office Visit (GEE ) GUY HOLLOWAY ([id number]) 1965 M Date Time Provider Department 10/09/22 [...] Jacob Singleton PA-C Referring Provider: ROBERT KAHN [[id number]] Allergies As of Date: 10/09/2022 (No Known Allergies) Date Reviewed: 10/09/2022 Reviewed by: Connie Bennett MA - Fully Assessed Reason for Visit: Post Op [174] Primary Visit Diagnosis:Status post right hip replacement [Z96.641] Order(s):XR HIP GENERAL 3V PELV/AP/LAT RIGHT [[id number]] Order #: [id number] FUTURE amoxicillin (POLYMOX, AMOXIL) 500 mg capsuleTake [...] Status:Closed by JACOB SINGLETON on 10/09/22 Normal [facility] No Panel Informationon 10-09 [facility] XR HIP 3V PELV+ AP/LAT RTon 10-09-2022 [...] hip arthroplasty in place with intact hardware. Canvas Shop Laborer: PSCB Transcribe Date/Time: Oct 09 2022 10:17A Dictated by : RACHEL NICHOLE MD This examination was interpreted and the report reviewed and electronically signed by: RACHEL NICHOLE MD on Oct 09 2022 10:18AM EST [id number] Normal [facility] Basic metabolic 2000 panelon 09-24-2022 Anion gap [Moles/Vol] 9 mmol/L Normal 9-18 [facility] Comment on above: Order Comment: Speci men Type: BLOOD SPECIMENOrdering Facility: [facility] Address: [address] [address] Performed By: #### 2 4321-2 ####[facility] LABORATORYIA [id number] [place] [address] [place] Calcium [Mass/Vol] 8.7 mg/dL Normal 8.5-10.2 [facility] Comment on above: Order Comment: Speci men Type: BLOOD SPECIMENOrdering Facility: [facility] Address: [address] [address] Performed By: #### 2 4321-2 ####[facility] [id number] [place] [address] [place] Chloride [Moles/Vol] 101 mmol/L Normal 97-105 [facility] Comment on above: Order Comment: Speci men Type: BLOOD SPECIMENOrdering Facility: [facility] Address: [address] Performed By: #### 2 4321-2 ####[facility] [id number] [place] [id number] [place] CO2 [Moles/Vol] 27 mmol/L Normal 22-30 [facility] Comment on above: Order Comment: Speci men Type: BLOOD SPECIMENOrdering Facility: [facility] Address: [address] Performed By: #### 2 4321-2 ####[facility] LABORATORYIA [id number] [place] [address] [place] Creatinine [Mass/Vol] 0.95 mg/dL Normal 0.73-1.22 [facility] Comment on above: Order Comment: Speci men Type: BLOOD SPECIMENOrdering Facility: [facility] Address: [address] [address] Performed By: #### 2 4321-2 ####[facility] LABORATORYIA [id number] [facility] [place] [address] [place] ESTIMATED GLOMERULAR FILTRATION RATE 92 mL/min/1.73m??? Normal >=60 [facility] Comment on above: Order Comment: Ileana mace Type: BLOOD SPECIMENOrdering Facility: [facility] Address: [address] [place] [address] Result Comment: Judy mated Glomerular Filtration Rate [...] actual GFR. Performed By: #### 2 4321-2 ####[facility] LABORATORYCLIA [id number] [place] [address] [place] Glucose [Mass/Vol] 115 mg/dL High 74-99 [facility] Comment on above: Order Comment: Ileana mace Type: BLOOD SPECIMENOrdering Facility: [facility] Address: [address] [place] [address] Result Comment: The [place] Diabetes Association (ADA) provides guidance for cutoff [...] Standards of Medical Care in Diabetes 2016, [place] [employer]. Diabetes Care. 2016.39(Suppl 1). Performed By: #### 2 4321-2 ####[facility] LABORATORYCLIA [id number] [place] [address] [place] Potassium [Moles/Vol] 4.0 mmol/L Normal 3.7-5.1 [facility] Comment on above: Order Comment: Speci men Type: BLOOD SPECIMENOrdering Facility: [facility] Address: [address] [address] Performed By: #### 2 4321-2 ####[facility] [id number] [address] [place] Sodium [Moles/Vol] 137 mmol/L Normal 136-144 [facility]ital Comment on above: Order Comment: Speci men Type: BLOOD SPECIMENOrdering Facility: [facility] Address: [address] [address] Performed By: #### 2 4321-2 ####[facility] [id number] [place] [address] [place] Urea nitrogen [Mass/Vol] 15 mg/dL Normal 9-24 [facility] Comment on above: Order Comment: Speci men Type: BLOOD SPECIMENOrdering Facility: [facility] Address: [address] [address] Performed By: #### 2 4321-2 ####[facility] [id number] [place] [address] [place] CBC panel Auto (Bld)on 09-24 Erythrocyte distribution width (RBC) [Ratio] 13.5 % Normal 11.5-15.0 [facility] Comment on above: Order Comment: Speci men Type: BLOOD SPECIMENOrdering Facility: [facility] Address: [address] [address] Performed By: #### 5 8410-2 ####[facility] [id number] [address] [place] Hematocrit (Bld) [Volume fraction] 40.1 % Normal 39.0-51.0 [facility] Comment on above: Order Comment: Speci men Type: BLOOD SPECIMENOrdering Facility: [facility] Address: [address] [address] Performed By: #### 5 8410-2 ####[facility] LABORATORYIA [id number] [address] [place] Hemoglobin (Bld) [Mass/Vol] 13.5 g/dL Normal 13.0-17.0 [facility] Comment on above: Order Comment: Speci men Type: BLOOD SPECIMENOrdering Facility: [facility] Address: [address] [place] [address] Performed By: #### 5 8410-2 ####[facility] LABORATORYIA [id number] [address] [place] MCH (RBC) [Entitic mass] 28.7 pg Normal 26.0-34.0 [facility] Comment on above: Order Comment: Speci men Type: BLOOD SPECIMENOrdering Facility: [facility] Address: [address] [place] [address] Performed By: #### 5 8410-2 ####[facility] [id number] [address] [place] MCHC (RBC) [Mass/Vol] 33.7 g/dL Normal 30.5-36.0 [facility] Comment on above: Order Comment: Speci men Type: BLOOD SPECIMENOrdering Facility: [facility] Address: [address] [place] [address] Performed By: #### 5 8410-2 ####[facility] [id number] [address] [place] MCV (RBC) [Entitic vol] 85.3 fL Normal 80.0-100.0 [facility] Comment on above: Order Comment: Speci men Type: BLOOD SPECIMENOrdering Facility: [facility] Address: [address] [place] [address] Performed By: #### 5 8410-2 ####[facility] [id number] [address] [place] Nucleated RBC (Bld) [#/Vol] 10*3/uL Normal <0.01 [facility] Comment on above: Order Comment: Speci men Type: BLOOD SPECIMENOrdering Facility: [facility] Address: [address] Performed By: #### 5 8410-2 ####[facility] LABORATORYIA [id number] [facility] [place] [address] [place] Platelet mean volume (Bld) [Entitic vol] 10.2 fL Normal 9.0-12.7 [facility] Comment on above: Order Comment: Speci men Type: BLOOD SPECIMENOrdering Facility: [facility] Address: [address] Performed By: #### 5 8410-2 ####[facility] [id number] [place] [address] [place] Platelets (Bld) [#/Vol] 186 10*3/uL Normal 150-400 [facility] Comment on above: Order Comment: Speci men Type: BLOOD SPECIMENOrdering Facility: [facility] Address: [address] Performed By: #### 5 8410-2 ####[facility] [id number] [place] [address] [place] RBC (Bld) [#/Vol] 4.70 10*6/uL Normal 4.20-6.00 [facility] Comment on above: Order Comment: Speci men Type: BLOOD SPECIMENOrdering Facility: [facility] Address: [address] Performed By: #### 5 8410-2 ####[facility] [id number] [facility] [place] [address] [place] WBC (Bld) [#/Vol] 11.78 10*3/uL High 3.70-11.00 [facility] Comment on above: Order Comment: Speci men Type: BLOOD SPECIMENOrdering Facility: [facility] Address: [address] Performed By: #### 5 8410-2 ####[facility] LABORATORYIA [id number] [facility] [place] [address] [facility] CNDSon 09-24-2022 [facility] HNO ID: [id number] Author: Itzel Berry PA-C Service: Orthopaedic Surgery Author Type: Physician Manager Grocery Type: Discharge Summary Filed: 09/24/2022 11:49 AM [...] Dept Phone 10/09/2022 8:00 AM JACOB SINGLETON [phone] 11/06/2022 2:15 PM ROBERT KAHN [facility] [phone] Plan discussed with attending Orthopaedic surgeon Dr. Kahn , will addend as needed. I spent 35 minutes in the visit, with more than 50% of the total [id number]-tf-iwsb time of the visit in counseling / coordination of care. SIGNATURE: Itzel Berry PA-C PATIENT NAME: Guy Holloway DATE: 09/24/22 TIME: 9:21 AM Normal [facility] THERAPY NTon 09-24-2022 THERAPY NT HNO ID: [id number] Author: Talia Lee, PT, DPT Service: Physical Therapy Author Type: Physical Therapist Type: Therapy (PT/OT/Speech/Resp) Filed: 09/24/2022 12:29 PM Note Text: Physical Therapy Treatment SERVICE DATE: 09/24/2022 SERVICE TIME: 1200 to 1223 ROOM: [address] [address] Recommended Discharge Disposition: Home PT Recommended Discharge [...] 2 children living near by to assist supervisor bit and shank department Entry To Home: Stairs;Without Rail Number Of [...] 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 [facility] ANES POSTPROC EVALon 022 ANES POSTPROC EVAL HNO ID: [id number] Author: Aniya Lamb MD Service: Anesthesiology Author Type: Anesthesiologist Type: Anesthesia Postprocedure Evaluation Filed: 09/23/2022 3:39 PM Note Text: POST ANESTHESIA EVALUATION NOTE : 1965 Procedure Summary Date: 09/23/22 Room / Location: [address] [address] / OR Anesthesia Start: 842 Anesthesia Stop: [...] September 23, 2022 TIME: 3:39 PM CSN: [id number] [facility] ANES PRE-OPon 09-23-2022 ANES PRE-OP HNO ID: [id number] Author: Aniya Lamb MD Service: Anesthesiology Author [...] September 23, 2022 TIME: 6:38 AM CSN: [id number] [facility] OPERATIVE NOon 09-23-2022 OPERATIVE NO HNO ID: [id number] Author: Robert Kahn MD Service: Orthopaedic Surgery Author Type: Physician Type: Operative Report Filed: 09/23/2022 10:26 AM Note Text: OPERATIVE/PROCEDURE REPORT LOG ID: [id number] SURGERY/PROCEDURE DATE: 09/23/2022 INCISION/PROCEDURE START TIME: 9:25 AM INCISION CLOSE/PROCEDURE END TIME: 1045 SURGEON(S)/PROCEDURALI ST(S) AND BREWERY REPRESENTATIVE(S): Surgeon(s) and Role: * Robert Kahn MD - Primary Physician Manager Grocery: Abelardo Tierney PA-C SURGERY/PROCEDURE(S): Right total hip [...] assistance. No qualified resident was available. A diet assistant was necessary for safe patient positioning, protection of tissue, retraction, and suture management. The assistant strength coach provided final wound closure, bandage application, and transfer of the patient to the recovery room. SIGNATURE: Robert Kahn MD PATIENT NAME: Guy Holloway DATE: September 23, 2022 TIME: 10:22 AM Normal [facility] SURGICAL PATHOLOGYon CASE REPORT Normal [facility] Comment on above: Order Comment: Speci men Type: SPECIMEN FROM BONEOrdering Facility: [facility] Address: [address] [place], [place] [address] Result Comment: Surg ical Pathology Report Case: [id number] Authorizing Provider: Robert Kahn MD Collected: 09/23/2022 09:28 AM Ordering Location: [facility] Surgery Received: 09/23/2022 10:47 AM Pathologist: Danie Irby MD Specimen: FEMORAL HEAD RIGHT, right femoral head Performed By: #### S ####[facility] LABCLIA [id number] [address] STATES [facility] CLINICAL HISTORY Normal [facility] pital Comment on above: Order Comment: Speci men Type: SPECIMEN FROM BONEOrdering Facility: [facility] Address: [address] [place], [place] [address] Result Comment: Femo ral head, right, arthroplasty: -Pre-op diagnosis: Primary osteoarthritis of right hip [M16.11] Performed By: #### S ####[facility] LABCLIA [id number] [address] FINAL DIAGNOSIS Normal [facility] ital Comment on above: Order Comment: Speci men Type: SPECIMEN FROM BONEOrdering Facility: [facility] Address: [address] [place], [place] [address] Result Comment: Righ t femoral head, arthroplasty: - Degenerative joint disease with subchondral cyst formation. - Mild chronic synovitis, nonspecific. Performed By: #### S ####[facility] LABCLIA [id number] [address] [place] FINAL PERFORMING LAB Normal [facility] Comment on above: Order Comment: Speci men Type: SPECIMEN FROM BONEOrdering Facility: [facility] Address: [address] [place], [place] [address] Result Comment: Diag nostic interpretation performed at [facility], [address] [place] [address] CLIA# [id number] Business Planning Director: Augie Cruz M.D. Performed By: #### S ####[facility] LABIA [id number] [address] [place] GROSS DESCRIPTION Normal [facility] Comment on above: Order Comment: Speci men Type: SPECIMEN FROM BONEOrdering Facility: [facility] Address: [address] [place] [address] Result Comment: A. F EMORAL HEAD RIGHT [...] diameter. No grossly necrotic bone is identified. Aquarist sections are submitted, as follows: A1: Articulating surface, following decalcification A2: Non-articulating, peripheral surface, following decalcification A3: Soft tissue from femoral neck A4: Subchondral cysts, following decalcification AKA September 23, 2022 4:02 PM Gross examination performed at [facility], [address] [place] [address] Performed By: #### S ####[facility] LABIA [id number] [address] [place] THERAPY NTon 09-23-2022 THERAPY NT HNO ID: [id number] Author: Talia Lee, PT, DPT Service: Physical Therapy Author Type: Physical Therapist Type: Therapy (PT/OT/Speech/Resp) Filed: 09/23/2022 5:15 PM Note Text: Physical Therapy Evaluation SERVICE DATE: 09/23/2022 SERVICE TIME: 1625 to 1706 ROOM: [place] [address] Recommended Discharge Disposition: Home PT Recommended Discharge [...] 2 children living near by to assist supervisor bit and shank department Entry To Home: Stairs;Without Rail Number Of [...] 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 [facility] XR PELVIS 1V APon 09-23-2022 XR PELVIS [...] IMPRESSION: Status post hip arthroplasty, normal alignment Canvas Shop Laborer: PSCB Transcribe Date/Time: Sep 23 2022 12:17P Dictated by : MARILUZ TERRY MD This examination was interpreted and the report reviewed and electronically signed by: MARILUZ TERRY MD on Sep 23 2022 12:17PM EST [id number] [facility] GUY HOLLOWAY ([id number]) 1965 M Date Time Provider Department 09/10/22 [...] off of 3 months. Letter faxed to [employer] [facility]-patient's employer. Allergies As of Date: 09/10/2022 (No Known Allergies) Date Reviewed: 09/09/2022 Reviewed by: Mary Kate Welsh APRN.GERIATRIC PHYSICAL THERAPIST - Fully Assessed Reason for Visit: Patient Question [0937] Prescriptions as of 09/10/2022 - ELIQUIS 5 [...] Status:Closed by SANDRA ELMORE on 09/10/22 Normal [facility] CBC W Auto Differential pane l (Bld)on 09-09-2022 Basophils (Bld) [#/Vol] 0.05 10*3/uL Normal <0.11 [facility] Comment on above: Order Comment: Speci men Type: BLOOD SPECIMENOrdering Facility: [facility] Address: [address] [place] [address] Performed By: #### 5 7021-8 ####[facility] LABIA [id number] [place] [address] [place] Basophils/100 WBC (Bld) 0.6 % Normal [facility] Comment on above: Order Comment: Speci men Type: BLOOD SPECIMENOrdering Facility: [facility] Address: [address] [place] [address] Performed By: #### 5 7021-8 ####[facility] LABIA [id number] [place] [address] [place] Differential cell count method Nom (Bld) Auto Normal [facility] Comment on above: Order Comment: Speci men Type: BLOOD SPECIMENOrdering Facility: [facility] Address: [address] [address] Performed By: #### 5 7021-8 ####[facility] LABCLIA [id number] [place] [address] [place] Eosinophils (Bld) [#/Vol] 0.16 10*3/uL Normal <0.46 [facility] Comment on above: Order Comment: Speci men Type: BLOOD SPECIMENOrdering Facility: [facility] Address: [address] [address] Performed By: #### 5 7021-8 ####[facility] LABCLIA [id number] [place] [address] [place] Eosinophils/100 WBC (Bld) 2.0 % Normal [facility] Comment on above: Order Comment: Speci men Type: BLOOD SPECIMENOrdering Facility: [facility] Address: [address] [place] [address] Performed By: #### 5 7021-8 ####[facility] LABCLIA [id number] [place] [address] [place] Erythrocyte distribution width (RBC) [Ratio] 13.7 % Normal 11.5-15.0 [facility] Comment on above: Order Comment: Speci men Type: BLOOD SPECIMENOrdering Facility: [facility] Address: [address] [address] Performed By: #### 5 7021-8 ####[facility] LABCLIA [id number] [place] [address] [place] Hematocrit (Bld) [Volume fraction] 47.2 % Normal 39.0-51.0 [facility] Comment on above: Order Comment: Speci men Type: BLOOD SPECIMENOrdering Facility: [facility] Address: [address] [place] [address] Performed By: #### 5 7021-8 ####[facility] LABCLIA [id number] [place] [address] [place] Hemoglobin (Bld) [Mass/Vol] 16.3 g/dL Normal 13.0-17.0 [facility] Comment on above: Order Comment: Speci men Type: BLOOD SPECIMENOrdering Facility: [facility] Address: [address] [place] [address] Performed By: #### 5 7021-8 ####[facility] LABCLIA [id number] [place] [address] [place] Immature granulocytes (Bld) [#/Vol] 0.04 10*3/uL Normal <0.10 [facility] Comment on above: Order Comment: Speci men Type: BLOOD SPECIMENOrdering Facility: [facility] Address: [address] [place] [address] Performed By: #### 5 7021-8 ####[facility] LABIA [id number] [place] [address] [place] Immature granulocytes/100 WBC (Bld) 0.5 % Normal [facility] Comment on above: Order Comment: Speci men Type: BLOOD SPECIMENOrdering Facility: [facility] Address: [address] [place] [address] Performed By: #### 5 7021-8 ####[facility] LABIA [id number] [place] [address] [place] Lymphocytes (Bld) [#/Vol] 2.15 10*3/uL Normal 1.00-4.00 [facility] Comment on above: Order Comment: Speci men Type: BLOOD SPECIMENOrdering Facility: [facility] Address: [address] [place] [address] Performed By: #### 5 7021-8 ####[facility] LABCLIA [id number] [address] [place] Lymphocytes/100 WBC (Bld) 27.1 % Normal [facility] Comment on above: Order Comment: Speci men Type: BLOOD SPECIMENOrdering Facility: [facility] Address: [address] [place] [address] Performed By: #### 5 7021-8 ####[facility] LABCLIA [id number] [place] [address] [place] MCH (RBC) [Entitic mass] 29.1 pg Normal 26.0-34.0 [facility] Comment on above: Order Comment: Speci men Type: BLOOD SPECIMENOrdering Facility: [facility] Address: [address] [place] [address] Performed By: #### 5 7021-8 ####[facility] LABCLIA [id number] [place] [address] [place] MCHC (RBC) [Mass/Vol] 34.5 g/dL Normal 30.5-36.0 [facility] Comment on above: Order Comment: Speci men Type: BLOOD SPECIMENOrdering Facility: [facility] Address: [address] [place] [address] Performed By: #### 5 7021-8 ####[facility] LABCLIA [id number] [place] [address] [place] MCV (RBC) [Entitic vol] 84.1 fL Normal 80.0-100.0 [facility] Comment on above: Order Comment: Speci men Type: BLOOD SPECIMENOrdering Facility: [facility] Address: [address] [place] [address] Performed By: #### 5 7021-8 ####[facility] LABCLIA [id number] [place] [address] [place] Monocytes (Bld) [#/Vol] 0.78 10*3/uL Normal <0.87 [facility] Comment on above: Order Comment: Speci men Type: BLOOD SPECIMENOrdering Facility: [facility] Address: [address] [address] Performed By: #### 5 7021-8 ####[facility] LABCLIA [id number] [place] [address] [place] Monocytes/100 WBC (Bld) 9.8 % Normal [facility] Comment on above: Order Comment: Speci men Type: BLOOD SPECIMENOrdering Facility: [facility] Address: [address] [address] Performed By: #### 5 7021-8 ####[facility] LABCLIA [id number] [place] [address] [place] Neutrophils (Bld) [#/Vol] 4.76 10*3/uL Normal 1.45-7.50 [facility] Comment on above: Order Comment: Speci men Type: BLOOD SPECIMENOrdering Facility: [facility] Address: [address] [address] Performed By: #### 5 7021-8 ####[facility] LABCLIA [id number] [place] [address] [place] Neutrophils/100 WBC (Bld) 60.0 % Normal [facility] Comment on above: Order Comment: Speci men Type: BLOOD SPECIMENOrdering Facility: [facility] Address: [address] [address] Performed By: #### 5 7021-8 ####[facility] LABCLIA [id number] [place] [address] [place] Nucleated RBC (Bld) [#/Vol] 10*3/uL Normal <0.01 [facility] Comment on above: Order Comment: Speci men Type: BLOOD SPECIMENOrdering Facility: [facility] Address: [address] Performed By: #### 5 7021-8 ####[facility] LABCLIA [id number] [place] [address] [place] Nucleated RBC/100 WBC (Bld) [Ratio] 0.0 /100 WBC Normal [facility] Comment on above: Order Comment: Speci men Type: BLOOD SPECIMENOrdering Facility: [facility] Address: [address] [place] [address] Performed By: #### 5 7021-8 ####[facility] LABCLIA [id number] [place] [address] [place] Platelet mean volume (Bld) [Entitic vol] 10.1 fL Normal 9.0-12.7 [facility] Comment on above: Order Comment: Speci men Type: BLOOD SPECIMENOrdering Facility: [facility] Address: [address] [place] [address] Performed By: #### 5 7021-8 ####[facility] LABIA [id number] [place] [address] [place] Platelets (Bld) [#/Vol] 197 10*3/uL Normal 150-400 [facility] Comment on above: Order Comment: Speci men Type: BLOOD SPECIMENOrdering Facility: [facility] Address: [address] [place] [address] Performed By: #### 5 7021-8 ####[facility] LABCLIA [id number] [place] [address] [place] RBC (Bld) [#/Vol] 5.61 10*6/uL Normal 4.20-6.00 [facility] Comment on above: Order Comment: Speci men Type: BLOOD SPECIMENOrdering Facility: [facility] Address: [address] [place] [address] Performed By: #### 5 7021-8 ####[facility] LABCLIA [id number] [place] [address] [place] WBC (Bld) [#/Vol] 7.94 10*3/uL Normal 3.70-11.00 [facility] Comment on above: Order Comment: Speci men Type: BLOOD SPECIMENOrdering Facility: [facility] Address: [address] [place] [address] Performed By: #### 5 7021-8 ####[facility] LABCLIA [id number] [place] [address] [place] Comprehensive metabolic 2000 panelon 09-09-2022 Albumin [Mass/Vol] 4.4 g/dL Normal 3.9-4.9 [facility] Comment on above: Order Comment: Speci men Type: BLOOD SPECIMENOrdering Facility: [facility] Address: [address] [place] [address] Performed By: #### 2 4323-8, 65826-7 ####[facility] LABCLIA [id number] [place] [address] [place] ALP [Catalytic activity/Vol] 80 U/L Normal 38-113 [facility] Comment on above: Order Comment: Speci men Type: BLOOD SPECIMENOrdering Facility: [facility] Address: [address] [place] [address] Performed By: #### 2 4323-8, 97529-0 ####[facility] LABCLIA [id number] [place] [address] [place] ALT [Catalytic activity/Vol] 25 U/L Normal 10-54 [facility] Comment on above: Order Comment: Speci men Type: BLOOD SPECIMENOrdering Facility: [facility] Address: [address] [place] [address] Performed By: #### 2 4323-8, 05027-2 ####[facility] LABCLIA [id number] [place] [address] [place] Anion gap [Moles/Vol] 11 mmol/L Normal 9-18 [facility] Comment on above: Order Comment: Speci men Type: BLOOD SPECIMENOrdering Facility: [facility] Address: [address] [place] [address] Performed By: #### 2 4323-8, 28364-2 ####[facility] LABCLIA [id number] [place] [address] [place] AST [Catalytic activity/Vol] 22 U/L Normal 14-40 [facility] Comment on above: Order Comment: Speci men Type: BLOOD SPECIMENOrdering Facility: [facility] Address: [address] [place] [address] Performed By: #### 2 4323-8, 55925-5 ####[facility] LABCLIA [id number] [place] [address] [place] Bilirubin [Mass/Vol] 0.9 mg/dL Normal 0.2-1.3 [facility] Comment on above: Order Comment: Speci men Type: BLOOD SPECIMENOrdering Facility: [facility] Address: [address] [place] [address] Performed By: #### 2 4323-8, 65292-2 ####[facility] LABCLIA [id number] [place] [address] [place] Calcium [Mass/Vol] 9.8 mg/dL Normal 8.5-10.2 [facility] Comment on above: Order Comment: Speci men Type: BLOOD SPECIMENOrdering Facility: [facility] Address: [address] [place] [address] Performed By: #### 2 4323-8, 07338-1 ####[facility] LABCLIA [id number] [place] [address] [place] Chloride [Moles/Vol] 101 mmol/L Normal 97-105 [facility] Comment on above: Order Comment: Speci men Type: BLOOD SPECIMENOrdering Facility: [facility] Address: [address] [address] Performed By: #### 2 4323-8, 86221-2 ####[facility] LABCLIA [id number] [place] [address] [place] CO2 [Moles/Vol] 27 mmol/L Normal 22-30 [facility] Comment on above: Order Comment: Speci men Type: BLOOD SPECIMENOrdering Facility: [facility] Address: [address] [place] [address] Performed By: #### 2 4323-8, 65396-1 ####[facility] LABCLIA [id number] [place] [address] [place] Creatinine [Mass/Vol] 1.09 mg/dL Normal 0.73-1.22 [facility] Comment on above: Order Comment: Speci men Type: BLOOD SPECIMENOrdering Facility: [facility] Address: [address] [place] [address] Performed By: #### 2 4323-8, 69797-9 ####[facility] LABCLIA [id number] [place] [address] [place] ESTIMATED GLOMERULAR FILTRATION RATE 78 mL/min/1.73m??? Normal >=60 [facility] Comment on above: Order Comment: Speci men Type: BLOOD SPECIMENOrdering Facility: [facility] Address: [address] [place] [address] Result Comment: Judy mated Glomerular Filtration Rate [...] actual GFR. Performed By: #### 2 4323-8, 93851-1 ####[facility] LABCLIA [id number] [place] [address] [place] Glucose [Mass/Vol] 102 mg/dL High 74-99 [facility] Comment on above: Order Comment: Speci men Type: BLOOD SPECIMENOrdering Facility: [facility] Address: [address] [place], [place] [address] Result Comment: The [place] [employer] (ADA) provides guidance for cutoff [...] Standards of Medical Care in Diabetes 2016, [place] [employer]. Diabetes Care. 2016.39(Suppl 1). Performed By: #### 2 4323-8, 68162-0 ####[facility] LABCLIA [id number] [place] [address] [place] Potassium [Moles/Vol] 3.8 mmol/L Normal 3.7-5.1 [facility] Comment on above: Order Comment: Speci men Type: BLOOD SPECIMENOrdering Facility: [facility] Address: [place] [address] Performed By: #### 2 4323-8, 54956-4 ####[facility] LABCLIA [id number] [place] [address] [place] Protein [Mass/Vol] 7.0 g/dL Normal 6.3-8.0 [facility] Comment on above: Order Comment: Speci men Type: BLOOD SPECIMENOrdering Facility: [facility] Address: [address] [place], [place] [address] Performed By: #### 2 4323-8, 86145-8 ####[facility] LABCLIA [id number] [place] [address] [place] Sodium [Moles/Vol] 139 mmol/L Normal 136-144 [facility] Comment on above: Order Comment: Speci men Type: BLOOD SPECIMENOrdering Facility: [facility] Address: [address] [address] Performed By: #### 2 4323-8, 46998-8 ####[facility] LABCLIA [id number] [place] [address] [place] Urea nitrogen [Mass/Vol] 19 mg/dL Normal 9-24 [facility] Comment on above: Order Comment: Speci men Type: BLOOD SPECIMENOrdering Facility: [facility] Address: [address] [address] Performed By: #### 2 4323-8, 75295-3 ####[facility] LABCLIA [id number] [place] [address] [place] Ferritin SerPl-mCncon 2021 Ferritin [Mass/Vol] 435.0 ng/mL Normal 30.3-565.7 [facility] Comment on above: Order Comment: Speci men Type: BLOOD SPECIMENOrdering Facility: [facility] Address: [address] [address] Performed By: #### 2 276-4 ####[facility] LABCLIA [id number] [place] [address] [place] HISTORY PHYSICALon HISTORY PHYSICAL HNO ID: [id number] Author: Mary Kate Welsh APRN.GERIATRIC PHYSICAL THERAPIST Service: ? Author Type: Nurse Practitioner Type: [...] fevers. Neurological: No history of TIA's, stroke, SYSTEM MANAGER tumor, impaired sensorium, hemiplegia, paraplegia or quadraplegia. No neurological symptoms or problems. Respiratory: No history of current cough or dyspnea, or pneumonia in the past 6 weeks. No history of respiratory/pulmonary symptoms or problems. Cardiovascular: Positive for: anticoagulation therapy, DVT/PE and hypertension Negative for: CAD, chest pain, hyperlipidemia, recent MD and murmur/valvular heart disease. GI: No history [...] no joint swelling or clubbing. except BLE TRIMMING CASER edema, No vascular discoloration, NO erythema or ulcers Right hip- detailed deferred to surgeon . Neurological: normal cognition a (more content not included)... Normal [facility] Iron and Iron binding capaci ty panelon 09-09-2022 Iron [Mass/Vol] 74 ug/dL Normal 41-186 [facility] Comment on above: Order Comment: Speci men Type: BLOOD SPECIMENOrdering Facility: [facility] Address: [address] [address] Performed By: #### 2 4323-8, 38168-3 ####[facility] LABCLIA [id number] [place] [address] [place] Iron binding capacity [Mass/Vol] 341 ug/dL Normal 232-386 [facility] Comment on above: Order Comment: Speci men Type: BLOOD SPECIMENOrdering Facility: [facility] Address: [address] [place] [address] Performed By: #### 2 4323-8, 24463-4 ####[facility] LABCLIA [id number] [place] [address] [place] Iron/TIBC [Molar ratio] 21.7 % Normal 15.0-57.0 [facility] Comment on above: Order Comment: Speci men Type: BLOOD SPECIMENOrdering Facility: [facility] Address: [address] [place] [address] Performed By: #### 2 4323-8, 82072-9 ####[facility] LABCLIA [id number] [place] [address] [place] TYPE AND SCREEN,30 DAYon ABO A Normal [facility] Comment on above: Order Comment: Speci men Type: BLOOD SPECIMENOrdering Facility: [facility] Address: [address] [place] [address] Performed By: #### T SCR30 ####CC [facility] BLOOD BANKCLIA [id number] [place] [id number] HISTORICAL AB SCR STATUS Negative Normal [facility] Comment on above: Order Comment: Speci men Type: BLOOD SPECIMENOrdering Facility: [facility] Address: [address] [address] Performed By: #### T SCR30 ####[facility] BANKCLIA [id number] [address] Rh Nom (Bld) Positive Normal [facility] Comment on above: Order Comment: Speci men Type: BLOOD SPECIMENOrdering Facility: [facility] Address: [address] [address] Performed By: #### T SCR30 ####[facility] B[facility] BANKIA [id number] [address] CNPNon 09-08-2022 CNPN Telephone (LOPTRM) GUY HOLLOWAY ([id number]) 1965 M Date Time Provider Department 09/08/22 ROBERT KAHN During your visit today, we recorded the following information about you: Jania Lema Pss 09/08/2022 3:30 PM Signed LVM for patient to call with the name and phone number of facility he would like to go to for outpatient PT. Talia Palacio Claim Attorney 09/09/2022 11:55 AM Signed Patient returning call with PT information requested, [facility] [address] FAX:[phone] Jania Lema Pss 09/16/2022 3:51 PM Signed Patient is scheduled at [facility] in [place] on 09/29 at 4:00 Allergies As of [...] Status:Closed by JANIA WILKINSON on 09/08/22 Normal [facility] ALBUMINon 09-01-2022 Albumin [Mass/Vol] 3.9 g/dL Normal 3.4-5.0 [facility] Comment on above: Performed By: #### C MP, ALB #### [facility] [address] [place] [address] Dr. Kaylen Tejeda CBC AUTO DIFFon 09-01-2022 BASO # 0.1 103/ul Normal 0.0-0.1 [facility] Comment on above: Performed By: #### C MP, ALB #### [facility] [address] [place] [address] Dr. Kaylen Tejeda Basophils/100 WBC (Bld) 0.8 % Normal 0.2-2.0 [facility] Comment on above: Performed By: #### C MP, ALB #### [facility] [address] [place] [address] Dr. Kaylen Tejeda EO # 0.2 103/ul Normal 0.0-0.7 [facility] Comment on above: Performed By: #### C MP, ALB #### [facility] [address] [place] [address] Dr. Kaylen Tejeda Eosinophils/100 WBC (Bld) 2.1 % Normal 0.9-7.0 [facility] Comment on above: Performed By: #### C MP, ALB #### [facility] [address] [place] [address] Dr. Kaylen Tejeda Erythrocyte distribution width (RBC) [Ratio] 13.9 % Normal 11.0-15.0 [facility] Comment on above: Performed By: #### C MP, ALB #### [facility] [address] [place] [address] Dr. Kaylen Tejeda Hematocrit (Bld) [Volume fraction] 44.8 % Normal 42.0-54.0 [facility] Comment on above: Performed By: #### C MP, ALB #### [facility] [address] [place] [address] Dr. Kaylen Tejeda Hemoglobin (Bld) [Mass/Vol] 15.3 g/dL Normal 14.0-18.0 [facility] Comment on above: Performed By: #### C MP, ALB #### [facility] [address] [place] [address] Dr. Kaylen Tejeda IG # 0.04 10e3/ul Critically high 0.00-0.03 [facility] Comment on above: Performed By: #### C MP, ALB #### [facility] [address] [place] [address] Dr. Kaylen Tejeda IG % 0.5 % Normal 0.0-0.5 [facility] Comment on above: Performed By: #### C MP, ALB #### [facility] [address] [place] [address] Dr. Kaylen Tejeda LYMPH # 2.5 103/ul Normal 1.2-3.8 [facility] Comment on above: Performed By: #### C MP, ALB #### [facility] [address] [place] [address] Dr. Kaylen Tejeda Lymphocytes/100 WBC (Bld) 29.1 % Normal 20.5-60.0 [facility] Comment on above: Performed By: #### C MP, ALB #### [facility] [address] [place] [address] Dr. Kaylen Tejeda MANUAL DIFF REQ NO Normal [facility] Comment on above: Performed By: #### C MP, ALB #### [facility] [address] [place] [address] Dr. Kaylen Tejeda MCH (RBC) [Entitic mass] 28.8 pg Normal 25.9-34.0 [facility] Comment on above: Performed By: #### C MP, ALB #### [facility] [address] [place] [address] Dr. Kaylen Tejeda MCHC (RBC) [Mass/Vol] 34.2 g/dL Normal 29.9-35.2 [facility] Comment on above: Performed By: #### C MP, ALB #### [facility] [address] [place] [address] Dr. Kaylen Tejeda MCV (RBC) [Entitic vol] 84.2 fL Normal 80.0-94.0 [facility] Comment on above: Performed By: #### C MP, ALB #### [facility] [address] [place] [address] Dr. Kaylen Tejeda MONO # 1.0 103/ul Critically high 0.3-0.8 [facility] Comment on above: Performed By: #### C MP, ALB #### [facility] [address] [place] [address] Dr. Kaylen Tejeda Monocytes/100 WBC (Bld) 11.2 % Normal 1.7-12.0 [facility] Comment on above: Performed By: #### C MP, ALB #### [facility] [address] [place] [address] Dr. Kaylen Tejeda NEUT # 4.9 103/ul Normal 1.4-6.5 [facility] Comment on above: Performed By: #### C MP, ALB #### [facility] [address] [place] [address] Dr. Kaylen Tejeda Neutrophils/100 WBC (Bld) 56.3 % Normal 43.0-75.0 [facility] Comment on above: Performed By: #### C MP, ALB #### [facility] [address] [place] [address] Dr. Kaylen Tejeda Platelet mean volume (Bld) [Entitic vol] 10.0 fL Normal 9.5-13.5 [facility] Comment on above: Performed By: #### C MP, ALB #### [facility] [address] [place] [address] Dr. Kaylen Tejeda PLT 199 103/ul Normal 150-450 [facility] Comment on above: Performed By: #### C MP, ALB #### [facility] [address] [place] [address] Dr. Kaylen Tejeda RBC 5.32 106/ul Normal 4.70-6.10 [facility] Comment on above: Performed By: #### C MP, ALB #### [facility] [address] [place] [address] Dr. Kaylen Tejeda WBC 8.7 103/ul Normal 4.0-11.0 [facility] Comment on above: Performed By: #### C MP, ALB #### [facility] [address] [place] [address] Dr. Kaylen Tjeeda PROF 14(COMP METB)on 022 Albumin/Globulin [Mass ratio] 1.2 {ratio} Normal [facility] Comment on above: Performed By: #### C MP, ALB #### [facility] [address] [place] [address] Dr. Kaylen Tejeda ALP [Catalytic activity/Vol] 78 U/L Normal 46-116 [facility] Comment on above: Performed By: #### C MP, ALB #### [facility] [address] [place] [address] Dr. Kaylen Tejeda ALT [Catalytic activity/Vol] 34 U/L Normal 16-63 [facility] Comment on above: Performed By: #### C MP, ALB #### [facility] [address] [place] [address] Dr. Kaylen Tejeda Anion gap [Moles/Vol] 8.8 mmol/L Normal [facility] Comment on above: Performed By: #### C MP, ALB #### [facility] [address] [address] [address] Kaylen Tejeda AST [Catalytic activity/Vol] 9 U/L Critically low 15-37 [facility] Comment on above: Performed By: #### C MP, ALB #### [facility] [address] [address] [address] Kaylen Tejeda Bilirubin [Mass/Vol] 0.8 mg/dL Normal 0.2-1.0 [facility] Comment on above: Performed By: #### C MP, ALB #### [facility] [address] [place] [address] Dr. Kaylen Tejeda Calcium [Mass/Vol] 9.0 mg/dL Normal 8.5-10.1 [facility] Comment on above: Performed By: #### C MP, ALB #### [facility] [address] [place] [address] Dr. Kaylen Tejeda Chloride [Moles/Vol] 101 mmol/L Normal 98-107 [facility] Comment on above: Performed By: #### C MP, ALB #### [facility] [address] [place] [address] Dr. Kaylen Tejeda CO2 [Moles/Vol] 31.8 mmol/L Normal 21.0-32.0 [facility] Comment on above: Performed By: #### C MP, ALB #### [facility] [address] [place] [address] Dr. Kaylen Tejeda Creatinine [Mass/Vol] 1.12 mg/dL Normal 0.70-1.30 [facility] Comment on above: Performed By: #### C MP, ALB #### [facility] [address] [place] [address] Dr. Kaylen Tejeda EGFR-AF CITIZEN OF [place] >60 Normal >=60 [facility] Comment on above: Performed By: #### C MP, ALB #### [facility] [address] [place] [address] Dr. Kaylen Tejeda EGFR-NON AF CITIZEN OF [place] >60 Normal >=60 [facility] Comment on above: Performed By: #### C MP, ALB #### [facility] [address] [place] [address] Dr. Kaylen Tejeda Globulin (S) [Mass/Vol] 3.3 g/dL Normal [facility] Comment on above: Performed By: #### C MP, ALB #### [facility] [address] [place] [address] Dr. Kaylen Tejeda Glucose [Mass/Vol] 97 mg/dL Normal 74-106 [facility] Comment on above: Performed By: #### C MP, ALB #### [facility] [address] [place] [address] Dr. Kaylen Tejeda Potassium [Moles/Vol] 3.6 mmol/L Normal 3.5-5.1 [facility] Comment on above: Performed By: #### C MP, ALB #### [facility] [address] [place] [address] Dr. Kaylen Tejeda Protein [Mass/Vol] 7.2 g/dL Normal 6.4-8.2 [facility] Comment on above: Performed By: #### C MP, ALB #### [facility] [address] [place] [address] Dr. Kaylen Tejeda Sodium [Moles/Vol] 138 mmol/L Normal 136-145 [facility] Comment on above: Performed By: #### C MP, ALB #### [facility] [address] [place] [address] Dr. Kaylen Tejeda Urea nitrogen [Mass/Vol] 22.0 mg/dL Critically high 7.0-18.0 [facility] Comment on above: Performed By: #### C MP, ALB #### [facility] [address] [place] [address] Dr. Kaylen Tejeda Urea nitrogen/Creatinine [Mass ratio] 19.6 mg/mg Normal [facility] Comment on above: Performed By: #### C MP, ALB #### [facility] [address] [place] [address] Dr. Kaylen Lozano 08-26-2022 [place] Telephone ([employer]) GUY HOLLOWAY ([id number]) 1965 M Date Time Provider Department 08/26/22 ROBERT KAHN During your visit today, we recorded the following information about you: Jeaneth Sukhjinder Pss 08/26/2022 10:03 AM Signed oil lease broker spoke to patient regarding 09/23/22 surgery with [...] Encounter Status:Closed by JEANETH ESCOBAR on 08/26/22 [facility] GUY HOLLOWAY ([id number]) 1965 M Date Time Provider Department 08/24/22 [...] today at 1PM Patient requesting call at [phone]. Please advise. Allergies As of Date: 08/24/2022 (No Known Allergies) Date Reviewed: 07/30/2022 Reviewed by: Robert Kahn MD - Fully Assessed Reason for Visit: Question [4247] Prescriptions as of 08/25/2022 - lisinopril (PRINIVIL) [...] Status:Closed by CONNIE BENNETT on 08/25/22 Normal [facility] Orders Onlyon 08-18-2022 Orders Only [id number] Guy Holloway 1965 [facility] 08/18/2022 COURTNEY LAWSON [facility] Family History Problem Relation Age of Onset Deep vein thrombosis Mother's Sister Family Status - Relation Status Age at Mother's Sister Normal [facility] Office Visiton 08-12-2022 Follow-up visit [id number] Guy Holloway 1965 [facility] 08/12/2022 COURTNEY LAWSON YOHANNES Corbett [facility] Family History Problem Relation Age of Onset Deep vein thrombosis Mother's Sister Family Status - Relation Status Age at Mother's Sister Level of Service:68842 [place] OFFICE/OUTPATIENT NEW MODERATE MDM 45-59 MINUTES Reason for Visit and Comments: Pre-op Exam [174137] Hypertension [930523] Pulmonary embolism [Other] Normal [facility] CNOVon 07-30-2022 CNOV Office Visit (SHEF ) GUY HOLLOWAY ([id number]) 1965 M Date Time Provider Department 07/30/22 9:30 AM ROBERT KAHN During your visit today, we recorded the following information about you: Weight Height 136.1 kg 1.854 m Robert Kahn MD 07/30/2022 12:19 PM Signed CONSULT ORTHOPAEDIC: HIP PRIMARY CARE PHYSICIAN: Danielle Hernandez MD, MD REFERRING PROVIDER: Kushal Christian [address] [address] ASSESSMENT AND PLAN: Impression: Right Hip Severe [...] activities which include walking 2 blocks, doing lens finisher, exercise, rising from a sitting position, standing [...] Non smoker (more content not included)... Normal [facility] Laboratory - Microbiology an d Antimicrobial susceptibilityon 07-30-2022 S. aureus and MRSA panel RANDALL+probe (Nose) Negative Negative [facility] STAPH AUREUS PCRon 2 S. aureus and MRSA panel RANDALL+probe (Nose) Normal Negative [facility] Comment on above: Order Comment: Speci men Type: SWAB OF INTERNAL NOSEOrdering Facility: [facility] Address: [address] [place] [address] Result Comment: Nega tive for Staphylococcus aureus by PCR. Negative for MRSA by PCR Performed By: #### S APCR ####[facility] [id number] [address] [place] CNOVon 07-20-2022 CNOV Office Visit (LOORRM ) GUY HOLLOWAY ([id number]) 1965 M Date Time Provider Department 07/20/22 [...] [Z96.642] Order(s):XR HIP GENERAL 3V PELV/AP/LAT RIGHT [[id number]] Order #: [id number] FUTURE Prescriptions as of 07/23/2022 - lisinopril [...] Status:Closed by KUSHAL CHRISTIAN II on 07/23/22 [facility] XR HIP 3V PELV+ AP/LAT RTon 07-20-2022 [...] are preserved. IMPRESSION: SEVERE RIGHT HIP OSTEOARTHRITIS. [employer] Laborer: RONNELL Transcribe Date/Time: Jul 20 2022 1:12P Dictated by : EMI ANDERSON MD This examination was interpreted and the report reviewed and electronically signed by: EMI ANDERSON MD on Jul 20 2022 1:21PM EST [id number] Normal [facility] XR Pelvis and Hip - right AP and Lateral frogon 07-20-2022 IMPRESSION: SEVERE RIGHT HIP OSTEOARTHRITIS. [employer] Laborer: PSCB Transcribe Date/Time: Jul 20 2022 1:12P [...] symphysis are preserved. DIVISION OF RADIOLOGY Provider, [facility] - 07/20/2022 * * *Final Report* [...] preserved. IMPRESSION IMPRESSION: SEVERE RIGHT HIP OSTEOARTHRITIS. [employer] Laborer: PSCB Transcribe Date/Time: Jul 20 2022 1:12P Dictated by : EMI ANDERSON MD This examination was interpreted and the report reviewed and electronically signed by: EMI ANDERSON MD on Jul 20 2022 1:21PM EST [facility] Radiology Study observation (narrative) [facility] XR Pelvis and Hip - right AP and Lateral frogOrdered By: [facility] Provider on 07-20-2022 [facility] LUMBAR SPINE 2 OR 3 VIEWSon 05-05-2022 LUMBAR SPINE 2 OR 3 VIEWS STUDY: LUMBAR SPINE 2 OR 3 VIEWS; 05/05/2022 1:41 pm INDICATION: PAIN. COMPARISON: None. ACCESSION NUMBER(S): [id number] ORDERING CLINICIAN: Shavon Espana TECHNIQUE: AP and [...] OF FINDINGS: IMPRESSION: DJD. Disc disease. Normal [facility] THORACIC SPINE 2 VIEWSon THORACIC SPINE 2 VIEWS STUDY: THORACIC SPINE 2 VIEWS; 05/05/2022 1:42 pm INDICATION: PAIN. COMPARISON: None. ACCESSION NUMBER(S): [id number] ORDERING CLINICIAN: Shavon Espana TECHNIQUE: AP and lateral upright images of the thoracic spine were obtained. FINDINGS: The alignment of spine is unremarkable. There is moderately severe degenerative change with vertebral body endplate spurring. There is no obvious fracture or bone destruction. COMPARISON OF FINDINGS: IMPRESSION: DJD. Normal [facility] PROF 14(COMP METB)on 022 Albumin [Mass/Vol] 3.5 g/dL Normal 3.4-5.0 [facility] Comment on above: Performed By: #### C MP #### [facility] [address] [place] [address] Dr. Kaylen Tejeda Albumin/Globulin [Mass ratio] 1.1 {ratio} Normal [facility] Comment on above: Performed By: #### C MP #### [facility] [address] [address] [address] Kaylen Tejeda ALP [Catalytic activity/Vol] 74 U/L Normal 46-116 [facility] Comment on above: Performed By: #### C MP #### [facility] [address] [address] [address] Kaylen Tejeda ALT [Catalytic activity/Vol] 40 U/L Normal 16-63 [facility] Comment on above: Performed By: #### C MP #### [facility] [address] [place] [address] Dr. Kaylen Tejeda Anion gap [Moles/Vol] 9.1 mmol/L Normal [facility] Comment on above: Performed By: #### C MP #### [facility] [address] [place] [address] Dr. Kaylen Tejeda AST [Catalytic activity/Vol] 20 U/L Normal 15-37 [facility] Comment on above: Performed By: #### C MP #### [facility] [address] [place] [address] Dr. Kaylen Tejeda Bilirubin [Mass/Vol] 0.7 mg/dL Normal 0.2-1.0 [facility] Comment on above: Performed By: #### C MP #### [facility] [address] [place] [address] Dr. Kaylen Tejeda Calcium [Mass/Vol] 8.5 mg/dL Normal 8.5-10.1 [facility] Comment on above: Performed By: #### C MP #### [facility] [address] [place] [address] Dr. Kaylen Tejeda Chloride [Moles/Vol] 107 mmol/L Normal 98-107 [facility] Comment on above: Performed By: #### C MP #### [facility] [address] [place] [address] Dr. Kaylen Tejeda CO2 [Moles/Vol] 27.9 mmol/L Normal 21.0-32.0 [facility] Comment on above: Performed By: #### C MP #### [facility] [address] [address] [address] Kaylen Tejeda Creatinine [Mass/Vol] 1.30 mg/dL Normal 0.70-1.30 [facility] Comment on above: Performed By: #### C MP #### [facility] [address] [address] [address] Kaylen Tejeda EGFR-AF CITIZEN [place] >60 Normal >=60 [facility] Comment on above: Performed By: #### C MP #### [facility] [address] [address] [address] Kaylen Tejeda EGFR-NON AF CITIZEN OF [place] 57 mL/min/1.73m2 Critically low >=60 [facility] Comment on above: Performed By: #### C MP #### [facility] [address] [place] [address] Dr. Kaylen Tejeda Globulin (S) [Mass/Vol] 3.1 g/dL Normal [facility] Comment on above: Performed By: #### C MP #### [facility] [address] [place] [address] Dr. Kaylen Tejeda Glucose [Mass/Vol] 124 mg/dL Critically high 74-106 [facility] Comment on above: Performed By: #### C MP #### [facility] [address] [place] [address] Dr. Kaylen Tejeda Potassium [Moles/Vol] 4.0 mmol/L Normal 3.5-5.1 [facility] Comment on above: Performed By: #### C MP #### [facility] [address] [address] [address] Kaylen Tejeda Protein [Mass/Vol] 6.6 g/dL Normal 6.4-8.2 [facility] Comment on above: Performed By: #### C MP #### [facility] [address] [place] [address] Dr. Kaylen Tejeda Sodium [Moles/Vol] 140 mmol/L Normal 136-145 [facility] Comment on above: Performed By: #### C MP #### [facility] [address] [address] [address] Kaylen Tejeda Urea nitrogen [Mass/Vol] 22.0 mg/dL Critically high 7.0-18.0 [facility] Comment on above: Performed By: #### C MP #### [facility] [address] [place] [address] Dr. Kaylen Tejeda Urea nitrogen/Creatinine [Mass ratio] 16.9 mg/mg Normal [facility] Comment on above: Performed By: #### C MP #### [facility] [address] [place] [address] Dr. Kaylen Tejeda CARDIAC KENDAL ADMITon 022 CK [Catalytic activity/Vol] 446 U/L Critically high 39-308 [facility] Comment on above: Performed By: #### C MP, ALB #### [facility] [address] [place] [address] Dr. Kaylen Tejeda CK.MB [Mass/Vol] 5.05 ng/mL Critically high <=3.60 [facility] Comment on above: Performed By: #### C MP, ALB #### [facility] [address] [place] [address] Dr. Kaylen Tejeda HSTROP 8.4 pg/mL Normal 4.0-76.1 [facility] Comment on above: Result Comment: CUT- OFF POINTS HAVE BEEN ESTABLISHED BASED ON THE FOURTH UNIVERSAL DEFINITIONS OF MYOCARDIAL INFARCTION. THE UPPER REFERENCE LIMIT (URL) OF TROPONIN, DEFINED THE 99TH PERCENTILE OF cTnI DISTRIBUTION IN A REFERENCE POPULATION, HAS BEEN CONFIRMED THE DECISION THRESHOLD FOR MD DIAGNOSIS. Performed By: #### C MP, ALB #### [facility] [address] [place] [address] Dr. Kaylen Tejeda ALY 110 ng/mL Critically high 16-96 [facility] Comment on above: Performed By: #### C MP, ALB #### [facility] [address] [place] [address] Dr. Kaylen Tejeda CBC AUTO DIFFon 03-24-2022 BASO # 0.1 103/ul Normal 0.0-0.1 [facility] Comment on above: Performed By: #### C BC #### [facility] [address] [address] [address] Kaylen Tejeda Basophils/100 WBC (Bld) 0.9 % Normal 0.2-2.0 [facility] Comment on above: Performed By: #### C BC #### [facility] [address] [address] [address] Kaylen Tejeda EO # 0.2 103/ul Normal 0.0-0.7 [facility] Comment on above: Performed By: #### C BC #### [facility] [address] [place] [address] Dr. Kaylen Tejeda Eosinophils/100 WBC (Bld) 2.2 % Normal 0.9-7.0 [facility] Comment on above: Performed By: #### C BC #### [facility] [address] [place] [address] Dr. Kaylen Tejeda Erythrocyte distribution width (RBC) [Ratio] 13.8 % Normal 11.0-15.0 [facility] Comment on above: Performed By: #### C BC #### [facility] [address] [place] [address] Dr. Kaylen Tejeda Hematocrit (Bld) [Volume fraction] 46.1 % Normal 42.0-54.0 [facility] Comment on above: Performed By: #### C BC #### [facility] [address] [place] [address] Dr. Kaylen Tejeda Hemoglobin (Bld) [Mass/Vol] 15.7 g/dL Normal 14.0-18.0 [facility] Comment on above: Performed By: #### C BC #### [facility] [address] [place] [address] Dr. Kaylen Tejeda IG # 0.05 10e3/ul Critically high 0.00-0.03 [facility] Comment on above: Performed By: #### C BC #### [facility] [address] [place] [address] Dr. Kaylen Tejeda IG % 0.6 % Critically high 0.0-0.5 [facility] Comment on above: Performed By: #### C BC #### [facility] [address] [place] [address] Dr. Kaylen Tejeda LYMPH # 2.6 103/ul Normal 1.2-3.8 [facility] Comment on above: Performed By: #### C BC #### [facility] [address] [place] [address] Dr. Kaylen Tejeda Lymphocytes/100 WBC (Bld) 30.4 % Normal 20.5-60.0 [facility] Comment on above: Performed By: #### C BC #### [facility] [address] [place] [address] Dr. Kaylen Tejeda MANUAL DIFF REQ NO Normal [facility] Comment on above: Performed By: #### C BC #### [facility] [address] [place] [address] Dr. Kaylen Tejeda MCH (RBC) [Entitic mass] 29.8 pg Normal 25.9-34.0 [facility] Comment on above: Performed By: #### C BC #### [facility] [address] [place] [address] Dr. Kaylen Tejeda MCHC (RBC) [Mass/Vol] 34.1 g/dL Normal 29.9-35.2 [facility] Comment on above: Performed By: #### C BC #### [facility] [address] [place] [address] Dr. Kaylen Tejeda MCV (RBC) [Entitic vol] 87.5 fL Normal 80.0-94.0 [facility] Comment on above: Performed By: #### C BC #### [facility] [address] [place] [address] Dr. Kaylen Tejeda MONO # 0.9 103/ul Critically high 0.3-0.8 [facility] Comment on above: Performed By: #### C BC #### [facility] [address] [place] [address] Dr. Kaylen Tejeda Monocytes/100 WBC (Bld) 10.3 % Normal 1.7-12.0 [facility] Comment on above: Performed By: #### C BC #### [facility] [address] [place] [address] Dr. Kaylen Tejeda NEUT # 4.8 103/ul Normal 1.4-6.5 [facility] Comment on above: Performed By: #### C BC #### [facility] [address] [place] [address] Dr. Kaylen Tejeda Neutrophils/100 WBC (Bld) 55.6 % Normal 43.0-75.0 [facility] Comment on above: Performed By: #### C BC #### [facility] [address] [place] [address] Dr. Kaylen Tejeda Platelet mean volume (Bld) [Entitic vol] 10.2 fL Normal 9.5-13.5 [facility] Comment on above: Performed By: #### C BC #### [facility] [address] [place] [address] Dr. Kaylen Tejeda PLT 206 103/ul Normal 150-450 [facility] Comment on above: Performed By: #### C BC #### [facility] [address] [place] [address] Dr. Kaylen Tejeda RBC 5.27 106/ul Normal 4.70-6.10 [facility] Comment on above: Performed By: #### C BC #### [facility] [address] [place] [address] Dr. Kaylen Tejeda WBC 8.6 103/ul Normal 4.0-11.0 [facility] Comment on above: Performed By: #### C BC #### [facility] [address] [place] [address] ABD/PELVIS WO CONon 03-24 CT ABD/PELVIS WO CON EXAMINATION: CT ABD/PELVIS WO CON, 03/24/2022 6:50 PM MDT HISTORY: CALCULUS OF KIDNEY COMPARISON: None. TECHNIQUE: CT scan of the abdomen and pelvis was performed without IV contrast. CT dose reduction technique was used, including Automated Exposure Control. FINDINGS: Tip Out Worker: No pertinent findings, which are not already [...] LIZ MONTILLA Date: 2022-03-24 21:57 Normal [facility] BNPon 02-13-2022 Natriuretic peptide B (Bld) [Mass/Vol] 83.0 pg/mL Normal <=900.0 [facility] Comment on above: Performed By: #### B TRIMMING CASER, CMP, T7, TSH #### [facility] [address] [address] [address] Kaylen Tejeda CBC AUTO DIFFon 02-13-2022 BASO # 0.1 103/ul Normal 0.0-0.1 [facility] Comment on above: Performed By: #### C BC #### [facility] [address] [place], [place] [address] Dr. Kaylen Tejeda Basophils/100 WBC (Bld) 0.9 % Normal 0.2-2.0 [facility] Comment on above: Performed By: #### C BC #### [facility] [address] [place] [address] Dr. Kaylen Tejeda EO # 0.1 103/ul Normal 0.0-0.7 [facility] Comment on above: Performed By: #### C BC #### [facility] [address] [place] [address] Dr. Kaylen Tejeda Eosinophils/100 WBC (Bld) 1.9 % Normal 0.9-7.0 [facility] Comment on above: Performed By: #### C BC #### [facility] [address] [place] [address] Dr. Kaylen Tejeda Erythrocyte distribution width (RBC) [Ratio] 13.5 % Normal 11.0-15.0 [facility] Comment on above: Performed By: #### C BC #### [facility] [address] [place] [address] Dr. Kaylen Tejeda Hematocrit (Bld) [Volume fraction] 45.5 % Normal 42.0-54.0 [facility] Comment on above: Performed By: #### C BC #### [facility] [address] [place] [address] Dr. Kaylen Tejeda Hemoglobin (Bld) [Mass/Vol] 15.8 g/dL Normal 14.0-18.0 [facility] Comment on above: Performed By: #### C BC #### [facility] [address] [place] [address] Dr. Kaylen Tejeda IG # 0.03 10e3/ul Normal 0.00-0.03 [facility] Comment on above: Performed By: #### C BC #### [facility] [address] [place] [address] Dr. Kaylen Tejeda IG % 0.4 % Normal 0.0-0.5 [facility] Comment on above: Performed By: #### C BC #### [facility] [address] [place] [address] Dr. Kaylen Tejeda LYMPH # 1.8 103/ul Normal 1.2-3.8 [facility] Comment on above: Performed By: #### C BC #### [facility] [address] [place] [address] Dr. Kaylen Tejeda Lymphocytes/100 WBC (Bld) 27.3 % Normal 20.5-60.0 [facility] Comment on above: Performed By: #### C BC #### [facility] [address] [place] [address] Dr. Kaylen Tejeda MANUAL DIFF REQ NO Normal [facility] Comment on above: Performed By: #### C BC #### [facility] [address] [place] [address] Dr. Kaylen Tejeda MCH (RBC) [Entitic mass] 30.0 pg Normal 25.9-34.0 [facility] Comment on above: Performed By: #### C BC #### [facility] [address] [place] [address] Dr. Kaylen Tejeda MCHC (RBC) [Mass/Vol] 34.7 g/dL Normal 29.9-35.2 [facility] Comment on above: Performed By: #### C BC #### [facility] [address] [place] [address] Dr. Kaylen Tejeda MCV (RBC) [Entitic vol] 86.3 fL Normal 80.0-94.0 [facility] Comment on above: Performed By: #### C BC #### [facility] [address] [place] [address] Dr. Kaylen Tejeda MONO # 0.6 103/ul Normal 0.3-0.8 [facility] Comment on above: Performed By: #### C BC #### [facility] [address] [place] [address] Dr. Kaylen Tejeda Monocytes/100 WBC (Bld) 8.7 % Normal 1.7-12.0 [facility] Comment on above: Performed By: #### C BC #### [facility] [address] [place] [address] Dr. Kaylen Tejeda NEUT # 4.1 103/ul Normal 1.4-6.5 [facility] Comment on above: Performed By: #### C BC #### [facility] [address] [place] [address] Dr. Kaylen Tejeda Neutrophils/100 WBC (Bld) 60.8 % Normal 43.0-75.0 [facility] Comment on above: Performed By: #### C BC #### [facility] [address] [place] [address] Dr. Kaylen Tejeda Platelet mean volume (Bld) [Entitic vol] 9.4 fL Critically low 9.5-13.5 [facility] Comment on above: Performed By: #### C BC #### [facility] [address] [place] [address] Dr. Kaylen Tejeda PLT 169 103/ul Normal 150-450 [facility] Comment on above: Performed By: #### C BC #### [facility] [address] [place] [address] Dr. Kaylen Tejeda RBC 5.27 106/ul Normal 4.70-6.10 [facility] Comment on above: Performed By: #### C BC #### [facility] [address] [place] [address] Dr. Kaylen Tejeda WBC 6.7 103/ul Normal 4.0-11.0 [facility] Comment on above: Performed By: #### C BC #### [facility] [address] [place] [address] Dr. Kaylen Tejeda FREE THYROXINE INDEX T7on FTI 2.81 Normal 1.30-4.50 [facility] Comment on above: Performed By: #### B TRIMMING CASER, CMP, T7, TSH #### [facility] [address] [place] [address] Dr. Kaylen Tejeda T3U 33.0 % Normal 33.0-40.0 [facility] Comment on above: Performed By: #### B TRIMMING CASER, CMP, T7, TSH #### [facility] [address] [place] [address] Dr. Kaylen Tejeda T4 [Mass/Vol] 8.50 ug/dL Normal 4.50-12.10 [facility] Comment on above: Performed By: #### B TRIMMING CASER, CMP, T7, TSH #### [facility] [address] [place], [place] [id number] Dr. Kaylen Tejeda PROF 14(COMP METB)on 022 Albumin [Mass/Vol] 3.9 g/dL Normal 3.4-5.0 [facility] Comment on above: Performed By: #### B TRIMMING CASER, CMP, T7, TSH #### [facility] [address] [place] [address] Dr. Kaylen Tejeda Albumin/Globulin [Mass ratio] 1.1 {ratio} Normal [facility] Comment on above: Performed By: #### B TRIMMING CASER, CMP, T7, TSH #### [facility] [address] [place] [address] Dr. Kaylen Tejeda ALP [Catalytic activity/Vol] 78 U/L Normal 46-116 [facility] Comment on above: Performed By: #### B TRIMMING CASER, CMP, T7, TSH #### [facility] [address] [place] [address] Dr. Kaylen Tejeda ALT [Catalytic activity/Vol] 54 U/L Normal 16-63 [facility] Comment on above: Performed By: #### B TRIMMING CASER, CMP, T7, TSH #### [facility] [address] [address] [address] Kaylen Tejeda Anion gap [Moles/Vol] 10.9 mmol/L Normal [facility] Comment on above: Performed By: #### B TRIMMING CASER, CMP, T7, TSH #### [facility] [address] [place] [address] Dr. Kaylen Tejeda AST [Catalytic activity/Vol] 32 U/L Normal 15-37 [facility] Comment on above: Performed By: #### B TRIMMING CASER, CMP, T7, TSH #### [facility] [address] [address] [address] Kaylen Tejeda Bilirubin [Mass/Vol] 1.6 mg/dL Critically high 0.2-1.0 [facility] Comment on above: Performed By: #### B TRIMMING CASER, CMP, T7, TSH #### [facility] [address] [place] [address] Dr. Kaylen Tejeda Calcium [Mass/Vol] 9.1 mg/dL Normal 8.5-10.1 [facility] Comment on above: Performed By: #### B TRIMMING CASER, CMP, T7, TSH #### [facility] [address] [place] [address] Dr. Kaylen Tejeda Chloride [Moles/Vol] 102 mmol/L Normal 98-107 [facility] Comment on above: Performed By: #### B TRIMMING CASER, CMP, T7, TSH #### [facility] [address] [place] [address] Dr. Kaylen Tejeda CO2 [Moles/Vol] 29.0 mmol/L Normal 21.0-32.0 [facility] Comment on above: Performed By: #### B TRIMMING CASER, CMP, T7, TSH #### [facility] [address] [place] [address] Dr. Kaylen Tejeda Creatinine [Mass/Vol] 1.04 mg/dL Normal 0.70-1.30 [facility] Comment on above: Performed By: #### B TRIMMING CASER, CMP, T7, TSH #### [facility] [address] [place] [address] Dr. Kaylen Tejeda EGFR-AF CITIZEN OF [place] >60 Normal >=60 [facility] Comment on above: Performed By: #### B TRIMMING CASER, CMP, T7, TSH #### [facility] [address] [place] [address] Dr. Kaylen Tejeda EGFR-NON AF CITIZEN OF [place] >60 Normal >=60 [facility] Comment on above: Performed By: #### B TRIMMING CASER, CMP, T7, TSH #### [facility] [address] [place] [address] Dr. Kaylen Tejeda Globulin (S) [Mass/Vol] 3.5 g/dL Normal [facility] Comment on above: Performed By: #### B TRIMMING CASER, CMP, T7, TSH #### [facility] [address] [place] [address] Dr. Kaylen Tejeda Glucose [Mass/Vol] 116 mg/dL Critically high 74-106 T [facility] Comment on above: Performed By: #### B TRIMMING CASER, CMP, T7, TSH #### [facility] [address] [place] [address] Dr. Kaylen Tejeda Potassium [Moles/Vol] 3.9 mmol/L Normal 3.5-5.1 [facility] Comment on above: Performed By: #### B TRIMMING CASER, CMP, T7, TSH #### [facility] [address] [place] [address] Dr. Kaylen Tejeda Protein [Mass/Vol] 7.4 g/dL Normal 6.4-8.2 [facility] Comment on above: Performed By: #### B TRIMMING CASER, CMP, T7, TSH #### [facility] [address] [place] [address] Dr. Kaylen Tejeda Sodium [Moles/Vol] 138 mmol/L Normal 136-145 [facility] Comment on above: Performed By: #### B TRIMMING CASER, CMP, T7, TSH #### [facility] [address] [place] [address] Dr. Kaylen Tejeda Urea nitrogen [Mass/Vol] 11.0 mg/dL Normal 7.0-18.0 [facility] Comment on above: Performed By: #### B TRIMMING CASER, CMP, T7, TSH #### [facility] [address] [place] [address] Dr. Kaylen Tejeda Urea nitrogen/Creatinine [Mass ratio] 10.6 mg/mg Normal [facility] Comment on above: Performed By: #### B TRIMMING CASER, CMP, T7, TSH #### [facility] [address] [place] [address] Dr. Kaylen Tejeda TSHon 02-13-2022 TSH 1.140 uIU/mL Normal 0.358-3.740 [facility] Comment on above: Performed By: #### B TRIMMING CASER, CMP, T7, TSH #### [facility] [address] [place] [address] Dr. Kaylen Tejeda TSH RANGE SEE BELOW Normal [facility] Comment on above: Result Comment: <0.3 4 UIU/ml HYPERTHYROID 0.34-5.60 UIU/ml EUTHYROID >5.60 UIU/ml HYPOTHYROID Performed By: #### B TRIMMING CASER, CMP, T7, TSH #### [facility] [address] [address] [address] Kaylen Tejeda Activated partial thrombopla stin time (aPTT) in platelet poor plasma by coagulation aOrdered By: Brendon Mcnamara on 02-12-2022 aPTT Coag (PPP) [Time] 32.3 s 25.1-36.5 [facility] Albumin [Mass/volume] in Ser um or PlasmaOrdered By: Brendon Mcnamara on 02-12-2022 Albumin [Mass/Vol] 3.9 g/dL 3.2-5.5 [facility] Basophils Auto (Bld) [#/Vol] Ordered By: Brendon Mcnamara on 02-12-2022 Basophils (Bld) [#/Vol] 0.0 10*3/uL 0.0-0.2 [facility] Basophils/100 WBC Auto (Bld) Ordered By: Brendon Mcnamara on 02-12-2022 Basophils/100 WBC (Bld) 0.8 % [facility] Blood hemoglobin measurement (mass/volume)Ordered By: Brendon Mcnamara on 02-12-2022 Hemoglobin (Bld) [Mass/Vol] 15.5 g/dL 13.0-17.0 [facility] Blood leukocytes automated c ount (number/volume)Ordered By: Brendon Mcnamara on 02-12-2022 WBC (Bld) [#/Vol] 5.9 10*3/uL 4.5-11.0 [facility] CT angio cheston 02-12-2022 CT angio chest [facility] [place] [address] CT Scan Report Signed Patient: Guy Holloway MR#: [id number] : 1965 Acct:[id number] Age/Sex: 56 / M ADM Date: 02/12/22 Loc: ER Room: Type: [facility] ER Attending Dr: Ordering Provider: Brendon [...] Murillo Jr., M.D.02/12/2022 2:52 PM Dictation Location: [place] [address] Transcribed By: [facility] 02/12/22 1452 Dictated By: Tiffanie Murillo Jr, MD 02/12/22 1441 Signed By: 02/12/22 1452 Normal [facility] Complete Blood Count Auto Di ffon 02-12-2022 Basophils (Bld) [#/Vol] 0.0 10*3/uL Normal 0.0-0.2 [facility] Comment on above: Result Comment: PERF ORMED BY: [place] [address] PATHOLOGIST CYBER CRIME INVESTIGATOR KAIA KENDRICK M.D. Performed By: #### C MP, PT, PTT, CK, CKMB, HS TROP, CBC #### [address] Basophils/100 WBC (Bld) 0.8 % Normal . [facility] Comment on above: Performed By: #### C MP, PT, PTT, CK, CKMB, HS TROP, CBC #### [address] Eosinophils (Bld) [#/Vol] 0.1 10*3/uL Normal 0.0-0.45 [facility] Comment on above: Performed By: #### C MP, PT, PTT, CK, CKMB, HS TROP, CBC #### [address] Eosinophils/100 WBC (Bld) 2.4 % Normal . [facility] Comment on above: Performed By: #### C MP, PT, PTT, CK, CKMB, HS TROP, CBC #### [address] Erythrocyte distribution width (RBC) [Ratio] 14.9 % High 12.0-14.8 [facility] Comment on above: Performed By: #### C MP, PT, PTT, CK, CKMB, HS TROP, CBC #### [address] Hematocrit (Bld) [Volume fraction] 44.4 % Normal 38.8-50.0 [facility] Comment on above: Performed By: #### C MP, PT, PTT, CK, CKMB, HS TROP, CBC #### [address] Hemoglobin (Bld) [Mass/Vol] 15.5 g/dL Normal 13.0-17.0 [facility] Comment on above: Performed By: #### C MP, PT, PTT, CK, CKMB, HS TROP, CBC #### [address] Lymphocytes (Bld) [#/Vol] 1.4 10*3/uL Normal 1.00-4.8 [facility] Comment on above: Performed By: #### C MP, PT, PTT, CK, CKMB, HS TROP, CBC #### [address] Lymphocytes/100 WBC (Bld) 23.8 % Normal . [facility] Comment on above: Performed By: #### C MP, PT, PTT, CK, CKMB, HS TROP, CBC #### [address] MCH (RBC) [Entitic mass] 29.6 pg Normal 27.5-35.2 [facility] Comment on above: Performed By: #### C MP, PT, PTT, CK, CKMB, HS TROP, CBC #### [address] MCV (RBC) [Entitic vol] 85.1 fL Normal 83.5-101 [facility] Comment on above: Performed By: #### C MP, PT, PTT, CK, CKMB, HS TROP, CBC #### [address] Mean Corpuscular HGB Conc 34.8 g/dL Normal 32.5-35.6 [facility] Comment on above: Performed By: #### C MP, PT, PTT, CK, CKMB, HS TROP, CBC #### [address] Monocytes (Bld) [#/Vol] 0.7 10*3/uL Normal 0.0-0.8 [facility] Comment on above: Performed By: #### C MP, PT, PTT, CK, CKMB, HS TROP, CBC #### [address] Monocytes/100 WBC (Bld) 11.8 % Normal . [facility] Comment on above: Performed By: #### C MP, PT, PTT, CK, CKMB, HS TROP, CBC #### [address] Neutrophils (Bld) [#/Vol] 3.6 10*3/uL Normal 1.8-7.7 [facility] Comment on above: Performed By: #### C MP, PT, PTT, CK, CKMB, HS TROP, CBC #### [address] [place] [address] [place] Neutrophils/100 WBC (Bld) 61.2 % Normal . [facility] Comment on above: Performed By: #### C MP, PT, PTT, CK, CKMB, HS TROP, CBC #### [facility] [address] Nucleated RBC/100 WBC (Bld) [Ratio] 0.3 % Normal 0-0.5 [facility] Comment on above: Performed By: #### C MP, PT, PTT, CK, CKMB, HS TROP, CBC #### [facility] [address] Platelet mean volume (Bld) [Entitic vol] 8.2 fL Normal 6.6-10.1 [facility] Comment on above: Performed By: #### C MP, PT, PTT, CK, CKMB, HS TROP, CBC #### [facility] [address] Platelets (Bld) [#/Vol] 167 10*3/uL Normal 150-450 [facility] Comment on above: Performed By: #### C MP, PT, PTT, CK, CKMB, HS TROP, CBC #### [address] RBC (Bld) [#/Vol] 5.22 10*6/uL Normal 3.90-5.60 [facility] Comment on above: Performed By: #### C MP, PT, PTT, CK, CKMB, HS TROP, CBC #### [facility] [address] WBC (Bld) [#/Vol] 5.9 10*3/uL Normal 4.5-11.0 [facility] Comment on above: Performed By: #### C MP, PT, PTT, CK, CKMB, HS TROP, CBC #### [address] Comprehensive Metabolic Pane corie 02-12-2022 Albumin [Mass/Vol] 3.9 g/dL Normal 3.2-5.5 [facility] Comment on above: Performed By: #### C MP, PT, PTT, CK, CKMB, HS TROP, CBC #### [facility] [address] Albumin/Globulin [Mass ratio] 1.5 {ratio} Normal [facility] Comment on above: Performed By: #### C MP, PT, PTT, CK, CKMB, HS TROP, CBC #### [address] ALP [Catalytic activity/Vol] 64 U/L Normal 32-92 [facility] Comment on above: Performed By: #### C MP, PT, PTT, CK, CKMB, HS TROP, CBC #### [facility] [address] ALT [Catalytic activity/Vol] 39 U/L Normal 10-60 [facility] Comment on above: Performed By: #### C MP, PT, PTT, CK, CKMB, HS TROP, CBC #### [facility] [address] AST [Catalytic activity/Vol] 32 U/L Normal 10-42 [facility] Comment on above: Performed By: #### C MP, PT, PTT, CK, CKMB, HS TROP, CBC #### [address] Bilirubin [Mass/Vol] 1.6 mg/dL High 0.3-1.2 [facility] Comment on above: Result Comment: Samp les from patients who have taken Naproxen have shown spurious elevation in Total Bilirubin levels. A metabolite of Naproxen, O-desmethylnaproxen, has been shown to interfere with the Jendrassik-Grof method for measuring Total Bilirubin. Performed By: #### C MP, PT, PTT, CK, CKMB, HS TROP, CBC #### [address] Calcium [Mass/Vol] 9.1 mg/dL Normal 8.2-10.2 [facility] Comment on above: Performed By: #### C MP, PT, PTT, CK, CKMB, HS TROP, CBC #### [address] Chloride [Moles/Vol] 103 mmol/L Normal 95-114 [facility] Comment on above: Performed By: #### C MP, PT, PTT, CK, CKMB, HS TROP, CBC #### [address] CO2 [Moles/Vol] 23.1 mmol/L Normal 22.0-30.0 [facility] Comment on above: Performed By: #### C MP, PT, PTT, CK, CKMB, HS TROP, CBC #### [address] Creatinine [Mass/Vol] 1.03 mg/dL Normal 0.64-1.27 [facility] Comment on above: Performed By: #### C MP, PT, PTT, CK, CKMB, HS TROP, CBC #### [address] Creatinine Clr Calc Pharmacy 112.27 [facility] Comment on above: Result Comment: PERF ORMED BY: [place] [address] PATHOLOGIST CYBER CRIME INVESTIGATOR KAIA KENDRICK M.D. Performed By: #### C MP, PT, PTT, CK, CKMB, HS TROP, CBC #### [address] Estimated GFR ( Puneet > 60 [facility] Comment on above: Result Comment: GFR estimated reference range: According to KDOQI guidelines, <60 ml/min/1.73m2 is sufficient to diagnose a patient with chronic kidney disease. Performed By: #### C MP, PT, PTT, CK, CKMB, HS TROP, CBC #### [address] Estimated GFR (Non- Am > 60 [facility] Comment on above: Performed By: #### C MP, PT, PTT, CK, CKMB, HS TROP, CBC #### [address] [place] [address] [place] Globulin (S) [Mass/Vol] 2.6 g/dL Normal [facility] Comment on above: Performed By: #### C MP, PT, PTT, CK, CKMB, HS TROP, CBC #### [facility] [address] Glucose [Mass/Vol] 79 mg/dL Normal 70-100 [facility] Comment on above: Result Comment: [facility] Glucose Reference Range is dependent on time and content of last meal. Glucose of more than 200 mg/dL in a nonstressed, ambulatory subject supports the diagnosis of Diabetes Mellitus. ADA recommended reference range Performed By: #### C MP, PT, PTT, CK, CKMB, HS TROP, CBC #### [facility] [address] Potassium [Moles/Vol] 3.9 mmol/L Normal 3.5-5.1 [facility] Comment on above: Performed By: #### C MP, PT, PTT, CK, CKMB, HS TROP, CBC #### [facility] [address] Protein [Mass/Vol] 6.5 g/dL Normal 6.1-7.9 [facility] Comment on above: Performed By: #### C MP, PT, PTT, CK, CKMB, HS TROP, CBC #### [facility] [address] Sodium [Moles/Vol] 137 mmol/L Normal 136-146 [facility] Comment on above: Performed By: #### C MP, PT, PTT, CK, CKMB, HS TROP, CBC #### [facility] [address] [place] [address] [place] Urea nitrogen [Mass/Vol] 10 mg/dL Normal 9-23 [facility] Comment on above: Performed By: #### C MP, PT, PTT, CK, CKMB, HS TROP, CBC #### [facility] [address] [place] [address] [place] Creatine Kinaseon 02-12-2022 CK [Catalytic activity/Vol] 380 U/L High [facility] Comment on above: Performed By: #### C MP, PT, PTT, CK, CKMB, HS TROP, CBC #### [facility] [address] Creatine kinase [Enzymatic a ctivity/volume] in Serum or PlasmaOrdered By: Brendon Mcnamara on 02-12-2022 CK [Catalytic activity/Vol] 380 U/L [facility] Creatinine Kinase MBon 02-12 CK.MB [Mass/Vol] 5.7 ng/mL Normal 0.6-6.3 [facility] Comment on above: Performed By: #### C MP, PT, PTT, CK, CKMB, HS TROP, CBC #### [facility] [address] CKMB Relative Index 1.5 % Normal 0.00-2.50 [facility] Comment on above: Performed By: #### C MP, PT, PTT, CK, CKMB, HS TROP, CBC #### [facility] [address] Creatinine and Glomerular fi ltration rate.predicted panel (S/P/Bld)Ordered By: Brendon Mcnamara on 02-12-2022 Creatinine [Mass/Vol] 1.03 mg/dL 0.64-1.27 [facility] ECG 12 lead ECGon 02-12-2022 ECG 12 lead ECG [facility] Main [place] [address] [place] [address] Electrocardiograph Report Signed Patient: Guy Holloway MR#: [id number] : 1965 Acct:[id number] Age/Sex: 56 / M ADM Date: 02/12/22 Loc: ER Room: Type: [facility] ER Attending Dr: Ordering Provider: Brendon Mcnamara [...] ECGs available Confirmed by Brendon Mcnamara DO ([id number]) on 02/12/2022 2:55:30 PM Referred By: Electronically Signed By:Brendon Mcnamara DO Transcribed By: MUS Signed By Brendon Mcnamara DO 02/12 1455 Normal [facility] Eosinophils Auto (Bld) [#/Vo l]Ordered By: Brendon Mcnamara on 02-12-2022 Eosinophils (Bld) [#/Vol] 0.1 10*3/uL 0.0-0.45 [facility] Eosinophils/100 WBC Auto (Bl d)Ordered By: Brendon Mcnamara on 02-12-2022 Eosinophils/100 WBC (Bld) 2.4 % [facility] Erythrocyte distribution wid th Auto (RBC) [Ratio]Ordered By: Brendon Mcnamara on 02-12-2022 Erythrocyte distribution width (RBC) [Ratio] 14.9 % 12.0-14.8 [facility] Estimated glomerular filtrat ion rate (GFR) non- AmericanOrdered By: Brendon Mcnamara on 02-12-2022 GFR/1.73 sq M.predicted among non-blacks MDRD (S/P/Bld) [Vol rate/Area] > 60 mL/Min [facility] Globulin Calc (S) [Mass/Vol] Ordered By: Brendon Mcnamara on 02-12-2022 Globulin (S) [Mass/Vol] 2.6 g/dL [facility] Hematocrit Auto (Bld) [Volum e fraction]Ordered By: Brendon Mcnamara on 02-12-2022 Hematocrit (Bld) [Volume fraction] 44.4 % 38.8-50.0 [facility] - CoagulationOrde red By: Brendon Mcnamara on 02-12-2022 PT Coag (PPP) [Time] 14.2 s 9.0-12.9 [facility] - Hematology and Cell countsOrdered By: Brendon Mcnamara on 02-12-2022 Nucleated RBC/100 WBC (Bld) [Ratio] 0.3 % 0-0.5 [facility] Lymphocytes Auto (Bld) [#/Vo l]Ordered By: Brendon Mcnamara on 02-12-2022 Lymphocytes (Bld) [#/Vol] 1.4 10*3/uL 1.00-4.8 [facility] Lymphocytes/100 WBC Auto (Bl d)Ordered By: Brendon Mcnamara on 02-12-2022 Lymphocytes/100 WBC (Bld) 23.8 % [facility] MCH Auto (RBC) [Entitic mass ]Ordered By: Brendon Mcnamara on 02-12-2022 MCH (RBC) [Entitic mass] 29.6 pg 27.5-35.2 [facility] MCHC Auto (RBC) [Mass/Vol]Or dered By: Brendon Mcnamara on 02-12-2022 MCHC (RBC) [Mass/Vol] 34.8 g/dL 32.5-35.6 [facility] MCV Auto (RBC) [Entitic vol] Ordered By: Brendon Mcnamara on 02-12-2022 MCV (RBC) [Entitic vol] 85.1 fL 83.5-101 [facility] Monocytes Auto (Bld) [#/Vol] Ordered By: Brendon Mcnamara on 02-12-2022 Monocytes (Bld) [#/Vol] 0.7 10*3/uL 0.0-0.8 [facility] Monocytes/100 WBC Auto (Bld) Ordered By: Brendon Mcnamara on 02-12-2022 Monocytes/100 WBC (Bld) 11.8 % [facility] Neutrophils Auto (Bld) [#/Vo l]Ordered By: Brendon Mcnamara on 02-12-2022 Neutrophils (Bld) [#/Vol] 3.6 10*3/uL 1.8-7.7 [facility] Neutrophils/100 WBC Auto (Bl d)Ordered By: Brendon Mcnamara on 02-12-2022 Neutrophils/100 WBC (Bld) 61.2 % [facility] No Panel InformationOrdered By: Brendon Mcnamara on 02-12-2022 Estimated GFR () > 60 mL/Min [facility] Comment on above: GFR estimated refere nce range: According to KDOQI guidelines, <60 ml/min/1.73m2 is sufficient to diagnose a patient with chronic kidney disease. Pharmacy Creatinine Clearance (Chem 112.27 [facility] Partial Thromboplastin Timeo n 02-12-2022 aPTT Coag (Bld) [Time] 32.3 s Normal 25.1-36.[address] [facility] Comment on above: Result Comment: PERF ORMED BY: [facility] [address] [place] [address] PATHOLOGIST CYBER CRIME INVESTIGATOR KAIA KENDRICK M.D. Performed By: #### C MP, PT, PTT, CK, CKMB, HS TROP, CBC #### [facility] [address] Platelet mean volume Auto (B ld) [Entitic vol]Ordered By: Brendon Mcnamara on 02-12-2022 Platelet mean volume (Bld) [Entitic vol] 8.2 fL 6.6-10.1 [facility] Platelet poor plasma interna tional normalized ratio (INR) by coagulation assay (relatOrdered By: Brendon Mcnamara on 02-12-2022 INR Coag (PPP) [Relative time] 1.3 {INR} [facility] Comment on above: INR Therapeutic Rang [...] 02-12-2022 Platelets (Bld) [#/Vol] 167 10*3/uL 150-450 [facility] Protein [Mass/volume] in Ser um or PlasmaOrdered By: Brendon Mcnamara on 02-12-2022 Protein [Mass/Vol] 6.5 g/dL 6.1-7.9 [facility] Prothrombin Time INRon 02-12 INR Coag (PPP) [Relative time] 1.3 {INR} Normal [facility] Comment on above: Result Comment: INR [...] PTT, CK, CKMB, HS TROP, CBC #### [facility] [address] PT Coag (PPP) [Time] 14.2 s High 9.0-12.9 [facility] Comment on above: Performed By: #### C MP, PT, PTT, CK, CKMB, HS TROP, CBC #### [facility] [address] RBC Auto (Bld) [#/Vol]Ordere d By: Brendon Mcnamara on 02-12-2022 RBC (Bld) [#/Vol] 5.22 10*6/uL 3.90-5.60 [facility] Serum or plasma alanine mccabe otransferase measurement without P-5'-P (enzymatic activiOrdered By: Brendon Mcnamara on 02-12-2022 ALT No additional P-5'-P [Catalytic activity/Vol] 39 U/L 10-60 [facility] Serum or plasma albumin/glob ulin mass ratioOrdered By: Brendon Mcnamara on 02-12-2022 Albumin/Globulin [Mass ratio] 1.5 {ratio} [facility] Serum or plasma alkaline skyler sphatase measurement (enzymatic activity/volume)Ordered By: Brendon Mcnamara on 02-12-2022 ALP [Catalytic activity/Vol] 64 U/L 32-92 [facility] Serum or plasma aspartate am inotransferase measurement (enzymatic activity/volume)Ordered By: Brendon Mcnamara on 02-12-2022 AST [Catalytic activity/Vol] 32 U/L 10-42 [facility] Serum or plasma calcium adilene urement (mass/volume)Ordered By: Brendon Mcnamara on 02-12-2022 Calcium [Mass/Vol] 9.1 mg/dL 8.2-10.2 [facility] Serum or plasma chloride david surement (moles/volume)Ordered By: Brendon Mcnamara on 02-12-2022 Chloride [Moles/Vol] 103 mmol/L 95-114 [facility] Serum or plasma creatine kin ase MB (CKMB)/total creatine kinase (CK) ratio by calculaOrdered By: Brendon Mcnamara on 02-12-2022 CK.MB Calc [Catalytic fraction] 1.5 % 0.00-2.50 [facility] Serum or plasma creatine kin ase MB measurement (mass/volume)Ordered By: Brendon Mcnamara on 02-12-2022 CK.MB [Mass/Vol] 5.7 ng/mL 0.6-6.3 [facility] Serum or plasma glucose adilene urement (mass/volume)Ordered By: Brendon Mcnamara on 02-12-2022 Glucose [Mass/Vol] 79 mg/dL 70-100 [facility] Comment on above: ADA recommended refe rence range Random Glucose Reference Range is dependent on time and content of last meal. Glucose of more than 200 mg/dL in a nonstressed, ambulatory subject supports the diagnosis of Diabetes Mellitus. Serum or plasma potassium me asurement (moles/volume)Ordered By: Brendon Mcnamara on 02-12-2022 Potassium [Moles/Vol] 3.9 mmol/L 3.5-5.1 [facility] Serum or plasma sodium measu rement (moles/volume)Ordered By: Brendon Mcnamara on 02-12-2022 Sodium [Moles/Vol] 137 mmol/L 136-146 [facility] Serum or plasma total biliru bin measurement (mass/volume)Ordered By: Brendon Mcnamara on 02-12-2022 Bilirubin [Mass/Vol] 1.6 mg/dL 0.3-1.2 [facility] Comment on above: Samples from patient s who have taken Naproxen have shown spurious elevation in Total Bilirubin levels. A metabolite of Naproxen, O-desmethylnaproxen, has been shown to interfere with the Ryan method for measuring Total Bilirubin. Serum or plasma total carbon dioxide measurement (moles/volume)Ordered By: Brendon Mcnamara on 02-12-2022 CO2 [Moles/Vol] 23.1 mmol/L 22.0-30.0 [facility] Serum or plasma urea nitroge n measurement (mass/volume)Ordered By: Brendon Anders on 02-12-2022 Urea nitrogen [Mass/Vol] 10 mg/dL 06-26 [facility] Troponin I High Sensitivityo n 02-12-2022 Troponin I High Sensitivity 6 pg/mL Normal 0-20 [facility] Comment on above: Result Comment: PERF ORMED BY: [place] [address] PATHOLOGIST CYBER CRIME INVESTIGATOR KAIA KENDRICK M.D. Performed By: #### H S TROP #### [facility] [address] [place] [address] Troponin I High Sensitivity 6 pg/mL Normal 0-20 [facility] Comment on above: Result Comment: PERF ORMED BY: [place] [address] PATHOLOGIST CYBER CRIME INVESTIGATOR KAIA KENDRICK M.D. Performed By: #### C MP, PT, PTT, CK, CKMB, HS TROP, CBC #### [facility] [address] [place] [address] [place] Troponin I.cardiac [Mass/vol ume] in Serum or Plasma by High sensitivity methodOrdered By: Brendon Mcnamara on 02-12-2022 Troponin I.cardiac High sensitivity method [Mass/Vol] 6 pg/mL 0- [facility] Vital Signs Date Time Vital Sign Value Performing Clinician Derricki an 07-30-2022 09:28-0400 Body height 185.4 cm Robert Kahn MD Work Phone: [facility] 07-30-2022 09:28-0400 Body weight 136.08 kg Robert Kahn MD Work Phone: [facility] 07-23-2022 10:45-0400 Body height 182.9 cm Kushal Christian MD Work Phone: [facility] 07-23-2022 10:45-0400 Body weight 136.08 kg Kushal Christian MD Work Phone: [facility] 02-12-2022 15:10-0400 Diastolic blood pressure 106 mm[Hg] MD Danielle Hernandez Work Phone: [facility] 02-12-2022 15:10-0400 Heart rate 65 /min MD Danielle Hernandez Work Phone: [facility] 02-12-2022 15:10-0400 Respiratory rate 18 /min MD Danielle Hernandez Work Phone: [facility] 02-12-2022 15:10-0400 SaO2% (BldA) [Mass fraction] 99 % MD Danielle Hernandez Work Phone: [facility] 02-12-2022 15:10-0400 Systolic blood pressure 167 mm[Hg] MD Danielle Hernandez Work Phone: [facility] 02-12-2022 10:41-0400 Body height 182.88 cm MD Danielle Hernandez Work Phone: [facility] 02-12-2022 10:41-0400 Body mass index (BMI) [Ratio] 41.1 kg/m2 MD Danielle Hernandez Work Phone: [facility] 02-12-2022 10:41-0400 Body temperature 98.3 [degF] MD Danielle Hernandez Work Phone: [facility] 02-12-2022 10:41-0400 Body weight 137.43 kg MD Danielle Hernandez Work Phone: [facility] Encounters Encounter Date Encounter Type Care Provider Facility Start: 12-15-2022 End: 12-15-2022 ambulatory DANIELLE HERNANDEZ Facility:[facility] Start: 12-15-2022 End: 12-15-2022 Patient encounter procedure Robert Kahn MD Work Phone: Orthopaedics Comment on above: Status post right hi p replacement (Primary Dx) Start: 12-15-2022 End: 12-15-2022 Subsequent hospital visit by physician [facility] Re[facility] Work Phone: Radiology Comment on above: Status post right hi p replacement [Z96.641] Start: 11-10-2022 End: 11-10-2022 ambulatory [facility] Facility:[facility] Start: 11-10-2022 End: 11-10-2022 Subsequent hospital visit by physician [facility] Work Phone: Radiology Comment on above: Status post right hi p replacement [Z96.641] Start: 11-10-2022 End: 11-10-2022 Patient encounter procedure Robert Kahn MD Work Phone: Orthopaedics Comment on above: Status post right hi p replacement (Primary Dx) Start: 10-09-2022 End: 10-09-2022 ambulatory [facility] Facility:[facility] Start: 10-09-2022 End: 10-09-2022 Patient encounter procedure Jacob Singleton PA-C Work Phone: Orthopaedics Comment on above: Status post right hi p replacement (Primary Dx) Start: 10-09-2022 End: 10-09-2022 Subsequent hospital visit by physician [facility] Work Phone: Radiology Comment on above: Status post right hi p replacement [Z96.641] Start: 09-23-2022 End: 09-24-2022 ambulatory [facility] Facility:[facility] Start: 09-14-2022 End: 09-14-2022 ambulatory Gilma Drew RNcorporate account executive Start: 09-10-2022 Orders Only Jacob lentz PA-C Work Phone: Orthopaedics Comment on above: 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) Patient Question Start: 09-09-2022 Encounter for other preprocedural examination JACOB SINGLETON [facility] Start: 09-09-2022 End: 09-09-2022 ambulatory [facility] Facility:[facility] Start: 09-08-2022 Telephone encounter Robert Horton ra, MD Work Phone: [facility] Comment on above: Appointment Start: 09-01-2022 End: 09-02-[address] DANIELLE HERNANDEZ Facility:[facility] Start: 08-31-2022 End: 08-31-2022 ambulatory DANIELLE HERNANDEZ Facility:[facility] Start: 08-25-2022 End: 08-25-2022 ambulatory Jacob Anglinzakjeremy HAWA Work Phone: Orthopaedics Comment on above: Primary osteoarthrit is of right hip (Primary Dx); History of DVT of lower extremity Start: 08-25-2022 End: 08-25-2022 Telemedicine consultation with patient Jacob Betty SHAIKH Work Phone: [facility] Start: 08-24-2022 Telephone encounter Robert Horton ra, MD Work Phone: Orthopaedics Comment on above: Question Start: 08-12-2022 End: 08-12-2022 ambulatory [facility] Start: 08-12-2022 End: 08-12-2022 Encounter for other preprocedural examination [facility] Start: 07-30-2022 End: 07-30-2022 ambulatory KUSHAL CHRISTIAN Facility:[facility] Start: 07-30-2022 End: 07-30-2022 Patient encounter [...] 02-12-2022 Emergency department patient visit Danielle Hernandez Facility:[facility] Start: 02-12-2022 End: 02-12-2022 Emergency department patient visit MD Danielle Hernandez Work Phone: [facility] Procedures Date Procedure Procedure Detail Performing [...] Comment: Speci men Type: BLOOD SPECIMENOrdering Facility: [facility] Address: [address] [place] [address] Performed By: #### T [id number] ####CC MAIN BLOOD BANKCLIA [id number] [place] [address] [place] Start: 07-30-2022 Iadna s aureus ampli fied probe tq Jacob Singleton PA-C Work Phone: Start: 07-20-2022 Radex hip unilateral with pelvis 2-3 views Kushal Christian MD Work Phone: Start: 02-12-2022 CT of chest MD Danielle Hernandez Work Phone: Plan of Treatment Date Care Activity Detail Author Start: 05-03-2031 Urine microalbumin profile DTaP,Tdap,Td Vaccine (2 - Tdap) [facility] Start: 09-24-2025 DIABETES SCREEN DIABETES SCREEN [facility] Start: 09-24-2025 Diabetes Screening Diabetes Screenin g [facility] Start: 09-09-2025 DIABETES SCREEN DIABETES SCREEN [facility] Start: 06-04-2024 Covid-19 Vaccine ( season) Covid-19 Vaccine ( season) [facility] Start: 06-04-2024 Influenza vaccination Influenza Vacc ine (#1) [facility] Start: 2023 RSV Vaccine (1 - 1-d ose 60+ series) RSV Vaccine (1 - 1-dose 60+ series) [facility] Start: 2023 RSV Vaccine (1 - Ris k 60-74 years 1-dose series) RSV Vaccine (1 - Risk 60-74 years 1-dose series) [facility] Start: 06-04-2023 Covid-19 Vaccine ( season) Covid-19 Vaccine ( season) [facility] Start: 06-04-2023 Influenza vaccination Influenza Vacc ine (#1) [facility] Start: 10-04-2022 DEPRESSION ASSESSMENT DEPRESSION ASS ESSMENT [facility] Start: 07-30-2022 End: 09-29-2022 Albumin [Mass/volume] in Serum or Plasma ALBUMIN BLD Lab Routine Primary osteoarthritis of right hip Expected: 07/30/2022, Expires: 09/29/2022 [facility] Work Phone: Comment on above: Expected: 07/30/2022 , Expires: 09/29/2022 Start: 07-30-2022 End: 09-29-2022 CBC W Auto Differential panel - Blood CBC + DIFF Lab Routine Primary osteoarthritis of right hip Expected: 07/30/2022, Expires: 09/29/2022 [facility] Work Phone: Comment on above: Expected: 07/30/2022 , Expires: 09/29/2022 Start: 07-30-2022 End: 09-29-2022 Comprehensive metabolic 2000 panel - Serum or Plasma COMP METABOLIC PANEL Lab Routine Primary osteoarthritis of right hip Expected: 07/30/2022, Expires: 09/29/2022 [facility] Work Phone: Comment on above: Expected: 07/30/2022 , Expires: 09/29/2022 Start: 07-30-2022 End: 09-29-2022 CONFIRM BLOOD TYPE CONFIRM BLOOD TYPE Blood Bank Routine Primary osteoarthritis of right hip Expected: 07/30/2022, Expires: 09/29/2022 [facility] Work Phone: Comment on above: Expected: 07/30/2022 , Expires: 09/29/2022 Start: 07-30-2022 End: 09-29-2022 TYPE AND SCREEN,30 DAY TYPE AND SCREEN,30 DAY Blood Bank Routine Primary osteoarthritis of right hip Expected: 07/30/2022, Expires: 09/29/2022 [facility] Work Phone: Comment on above: Expected: 07/30/2022 , Expires: 09/29/2022 Start: 06-04-2022 Influenza vaccination INFLUENZA (#1) [facility] Start: 12-01-2021 COVID-19 VACCINE (4 - Booster for Pfizer series) COVID-19 VACCINE (4 - Booster for Pfizer series) [facility] Start: 10-04-2021 DEPRESSION ASSESSMENT DEPRESSION ASS ESSMENT [facility] Start: 10-22-2018 DIABETES SCREEN DIABETES SCREEN [facility] Start: 2018 PROSTATE CANCER SCREENING DISCUSSION PROSTATE CANCER SCREENING DISCUSSION [facility] Start: 2018 Prostate specific antigen measurement Prostate Cancer Screening Discussion [facility] Start: 2013 SHINGRIX VACCINE (1 of 2) SHINGRIX VACCINE (1 of 2) [facility] Start: 2008 COLOGUARD (FIT-DNA) COLOGUARD (FIT-D NA) [facility] Start: 2008 Colonoscopy COLONOSCOPY [facility] Start: 2008 COLORECTAL CANCER SCREENING COLORECTAL CANCER SCREENING [facility] Start: [address] COLONOGRAPHY [facility] Start: 2008 FECAL OCCULT BLOOD FECAL OCCULT BLOO D [facility] Start: 2008 Screening for malign ant neoplasm of colon [facility] Start: 2008 SIGMOIDOSCOPY SIGMOIDOSCOPY [facility] Start: 1998 Lipid 1996 panel - Serum or Plasma Lipid Screening [facility] Start: 1998 Lipid panel Lipid Screening [facility] Start: 1998 LIPID SCREEN LIPID SCREEN [facility] Start: 1982 Urine microalbumin profile DTAP,TDAP,TD (1 - Tdap) [facility] Start: 1981 ANNUAL PCP TEAM STRATEGIC PLANNER SHARON DISEASE VISIT ANNUAL PCP TEAM CHRONIC DISEASE VISIT [facility] Start: 1981 Anxiety Screening Anxiety Screening [facility] Start: 1981 BP CONTROLLED (<130/80) BP CONTROLLE D (<130/80) [facility] Start: 1981 Depression Screening Depression Scre ening [facility] Start: 1981 HEPATITIS C SCREENING HEPATITIS C [facility] Start: 1981 Hepatitis C screening Hepatitis C [facility] Start: 1981 HIV SCREENING HIV SCREENING [facility] Start: 1981 HIV screening HIV Screening [facility] Start: 1963 HEPATITIS B (1 of 3 - 3-dose series) HEPATITIS B (1 of 3 - 3-dose series) [facility] Patient Education Dehydration, Adult (DC) [facility] Work Phone: Patient referral [facility] Work Phone: End: 08-14-2023 XR HIP GENERAL 3V PELV/AP/LAT RIGHT XR HIP GENERAL 3V PELV/AP/LAT RIGHT Radiology Routine Primary osteoarthritis of right hip 1 Occurrences starting 07/15/2022 until 08/14/2023 [facility] Work Phone: Comment on above: 1 Occurrences starti ng 07/15/2022 until 08/14/2023 [facility] c Payers Date Payer Category Payer Self-pay [id number] 2017 Unknown [id number] 1963 Unknown [id number] 2.16.84 [id number] 1963 Unknown [id number] 2.16.84 [id number] 1963 Unknown [id number] 2.16.84 [id number] 1963 Unknown [id number] 2.16.84 [id number] 1963 Unknown [id number] 2.16.84 [id number] 1959 Unknown [id number] Unknown [id number] Unknown [id number] [id number] Social History Date Type Detail Facility Start: 10-14-2015 End: 02-12-2022 Tobacco smoking status IDIS Never smoked tobacco (finding) [facility] Start: 1965 Sex Assigned At Male [facility] Start: 10-14-2015 Tobacco use and exposure Smokeless tobacco non-user [facility] Start: 01-22-2016 End: 09-09-2022 Alcohol intake Current drinker of alcohol (finding) [facility] Start: 10-14-2015 Alcohol Comment monthly [facility] Start: 1965 [facility]igned At [facility] Start: 07-10-2022 End: 08-31-2022 Exposure to SARS-CoV-2 (event) Not sure [facility] Start: 09-09-2022 Alcohol Comment monthly maybe [facility] Start: 09-09-2022 End: 10-31-2022 History of Social function [facility] Start: 09-09-2022 End: 10-31-2022 Tobacco use panel [facility] National Score (1-100), lower number is lower risk 82 [facility] Medical Equipment Procedure Code Equipment Code Equipment Origin al Text Equipment Identifier Dates Kpb-Jy-I-Kind Implant - [id number] Start: 10-21-2015 Comment on above: Description: Active Articulation head Head M3u-Ozdec Ringloc Standard Offset Cocrmo Femoral Modular 28mm Sterile - [id number] Start: 10-21-2015 Longevity G7 Arc x Ofst Liner 36mm Size H [id number] Start: 09-23-2022 Stem Taperloc 13 3d 13 Pps 34.3mm Femoral Type 1 Taper Complete Reduced - [id number] Start: 09-23-2022 Screw G7 6.5mm Dome 15mm Acetabular Low Profile Hip - [id number] Start: 09-23-2022 Vcc-Bw-W-Kind Implant - [id number] Start: 10-21-2015 Comment on above: Description: Taperlo c Femoral Stem Cup Q7y-Vkclwu Tri-Brandyn Acetabular 60mm 54mm Hip - [id number] Start: 10-21-2015 Comment on above: Description: M2A Mag num Tri-Brandyn Cup Clinical Notes 07-20-2022 to 12-15-2022 Robert Kahn MD - 12/15/2022 3:39 PM Gilma Gay, RT(R) - 12/15/2022 2:15 PM Shantel Kahn MD - 11/10/2022 3:37 PM Daniella Burch RT(R) - 11/10/2022 3:15 PM ESTPatient Instructions Note Date & Type Note Facility 12-15-2022 Note HNO ID: [id number] Author: Robert Kahn MD Service: ? Author [...] 5) Medication changes aware of dental prophy [facility] 12-15-2022 Note HNO ID: [id number] Author: RT Frandy(R) Service: Radiology Author Type: [...] RT Frandy(R) December 15, 2022 1:54 PM [facility] 12-15-2022 History of Present illness Narrative CC: [...] of dental prophy documented in this encounter [facility] 12-15-2022 History of Present illness Narrative Radiology [...] 2022 1:54 PM documented in this encounter [facility] 11-10-2022 Note HNO ID: [id number] Author: Robert Kahn MD Service: ? Author [...] palpable can consider CSI at month 3. [facility] 11-10-2022 Note HNO ID: [id number] Author: RT Eloy(Jacy) Service: Radiology Author Type: Blood Typer Type: Progress Notes Filed: 11/10/2022 3:15 PM [...] Farooq/RT Eloy(R) November 10, 2022 3:14 PM [facility] 11-10-2022 History of Present illness Narrative CC: [...] at month 3. documented in this encounter [facility] 11-10-2022 History of Present illness Narrative Radiology [...] 2022 3:14 PM documented in this encounter [facility] 10-09-2022 Note HNO ID: [id number] Author: Jacob Singleton PA-C Service: ? Author Type: Physician Manager Grocery Type: Progress Notes Filed: 10/09/2022 10:44 AM [...] prescription sent to pharmacy Jacob Singleton PA-C [facility] 10-09-2022 Note HNO ID: [id number] Author: RT Juan Jose(R) Service: Radiology Author [...] Juan Jose(R) October 09, 2022 9:52 AM [facility] 10-09-2022 History of Present illness Narrative CC: [...] Jacob Singleton PA-C documented in this encounter [facility] 10-09-2022 History of Present illness Narrative Radiology [...] 2022 9:52 AM documented in this encounter [facility] 09-24-2022 Note HNO ID: [id number] Author: Cheyanne Ray (Manager Financial) Service: ? Author Type: ? Type: Plan [...] or your Primary Care Provider. Cheyanne Ray (Manager Financial) PAGER: yolanda September 24, 2022 3:47 PM [facility] 09-24-2022 Note HNO ID: [id number] Author: Goldie Rosas RN Service: Care Management [...] Name/Phone: Danielle Hernandez MD Other Caregiver Name/Phone: [facility] TRANSPORTATION ARRANGEMENTS: Transportation Arrangements: Car Discharge Information Row Name Admission (Discharged) from 09/23/[address] [facility] SIGNATURE: Goldie Rosas RN PATIENT NAME: Guy Holloway DATE: September 24, 2022 TIME: 2:00 PM PAGER/CONTACT #: [phone] [facility] 09-24-2022 Note HNO ID: [id number] Author: Goldie Rosas RN Service: Care Management [...] replacement ADVANCE DIRECTIVES Current Advance Directive: None Wind Development Director Attempted to Assist with AD Completion: Yes [...] discharge within 30 days: No PATIENT SCREEN Patient/Aquarist Stated Goals: To return home to life [...] PT ?Home PT [facility] [facility] CHOICE EXPLAINED: [place] [facility] Given: No (Pt states he [...] 24, 2022 TIME: 11:59 AM CONTACT #: [phone] [facility] 09-23-2022 Note HNO ID: [id number] Author: Robert Kahn MD Service: Orthopaedic Surgery Author Type: Physician Type: Progress Notes Filed: 09/23/2022 6:18 PM Note Text: SP Rt KARTHIK DF PF EHL intact DP2+ No edema XR satisfactory AP SP Rt KARTHIK Neuro vasc intact WBAT Ancef Elequis starting tomorrow [facility] 09-23-2022 Note HNO ID: [id number] Author: Scott Watson APRN.LINK TRAINER TEACHER Service: ? Author Type: Nurse Finisher Merchant Products Type: Anesthesia Procedure Notes Filed: 09/23/2022 9:30 AM Note Text: ANESTHESIOLOGY PROCEDURE NOTE Airway General Information Procedure Start Time/Medication Administration: 09/23/2022 8:51 AM Patient location during procedure: OR Timeout Performed Pre-procedure: timeout performed Consent Obtained: Yes Patient identity confirmed: arm band and patient Staffing LINK TRAINER TEACHER: Scott Watson APRN.LINK TRAINER TEACHER Performed by: ADILENE Indications and Patient Condition [...] glidescope. SIGNATURE: Scott Watson APRN.CRNA PATIENT NAME: uGy Holloway DATE: September 23, 2022 TIME: 9:23 AM CSN: [id number] [facility] 09-14-2022 Nurse Note ORTHOPAEDIC SURGERY PRE-OP PATIENT Guy Holloway is a 57 year old male PROCEDURE: right Total Hip PROCEDURE DATE: 09/23/22 CHECKLIST: Informed Consent: Yes- In [employer]: No Pre-op Skin Preparation Cloths & [...] Effects -Afterhours Number Given- page ortho resident farm consultant at [phone] METHOD OF INSTRUCTION: Individual instruction, Written instruction [...] -Call office if questions/concerns -Afterhour for resident farm consultant INFECTION MANAGEMENT: -Signs and symptoms of an infection -Importance of contacting the physician MEDICATION SIDE EFFECTS: -Side effects associated with the medication that warrant a call to the physician WOUND CARE: -Correct procedure to perform wound care DISCHARGE PLAN: -Patient referred to rapid recovery program and [place] [facility] was offered to Patient about [...] plans to go home with OP-PT at [facility]. Patient has walker Yes , [...] Gilma Drew RN documented in this encounter [facility] 09-10-2022 Miscellaneous Notes I returned the patient's call regarding requested physical therapy order fax. Order was faxed to the patient's preferred therapy facility to begin the process for his upcoming hip surgery. Patient also requested a letter faxed to his employer stating date of surgery and estimated time off of 3 months. Letter faxed to [facility]-patient's employer. documented in this encounter [facility] 09-08-2022 Miscellaneous Notes LVM for patient to call with the name and phone number of facility he would like to go to for outpatient PT. documented in this encounter [facility] 08-25-2022 Note HNO ID: [id number] Author: Jacob Singleton PA-C Service: ? Author Type: Physician Manager [employer]cery Type: Progress Notes Filed: 08/25/2022 4:05 PM Note Text: Called patient to discuss pre op questions. He consented for a right KARTHIK at his last office visit and consults were placed to vascular surgery or cardiology regarding his history of DVT following contralateral hip replacement. He was seen by Courtney Rosas NP and cleared for orthopedic surgery. I will notify our transcription coordinator that patient is ready to set a surgery date. I spent a total of 7 minutes on the date of the service which included preparing to see the patient, completing clinical documentation, and counseling and educating the patient/family/caregiver. Jacob Singleton PA-C [facility] 08-25-2022 History of Present illness Narrative Called patient to discuss pre op questions. He consented for a right KARTHIK at his last office visit and consults were placed to vascular surgery or cardiology regarding his history of DVT following contralateral hip replacement. He was seen by Courtney Rosas NP and cleared for orthopedic surgery. I will notify our transcription coordinator that patient is ready to set a surgery date. I spent a total of 7 minutes on the date of the service which included preparing to see the patient, completing clinical documentation, and counseling and educating the patient/family/caregiver. Jacob Singleton PA-C documented in this encounter [facility] 08-25-2022 Miscellaneous Notes Patient scheduled for provider phone call today. Patient would like a call back from Dr Kahn regarding his up coming procedure and getting it scheduled. He did all the cardiology steps and he's like a call to discuss where the process it at. Please call and advise. documented in this encounter [facility] 08-18-2022 Note Review of b/p trends at home- remains uncontrolled 139-163/ 75-93. Will add amlodipine 5 mg daily for HTN, staff to call pt and update and ask if he had BMP completed as prescribed at last visit. [facility] 08-12-2022 Note Remains on eliquis anticoagulation [facility] 08-12-2022 Note Remains on Eliquis anticoagulation per PCP [facility] 08-12-2022 Note Currently uncontroll ed in office- [...] patient next week to review blood pressures [facility] 08-12-2022 Note RCRI- 0???points Class I Risk 3.9???% 30-day risk of , MD, or cardiac arrest EKG today sinus bradycardia [...] left hip surgery he developed extensive DVT/PE. [facility] 08-12-2022 Note UTP CARDIOLOGY PROGR ESS NOTE [...] Risk 3.9 % 30-day risk of , MD, or cardiac arrest EKG today sinus bradycardia [...] Remains on eliquis anticoagulation RTC 1-6 months [facility] 07-30-2022 Note HNO ID: [id number] Author: Robert Kahn MD Service: ? Author Type: Physician Type: Progress Notes Filed: 07/30/2022 12:19 PM Note Text: CONSULT ORTHOPAEDIC: HIP PRIMARY CARE PHYSICIAN: Danielle Hernandez MD, MD REFERRING PROVIDER: Kushal Christian [address] [facility] [address] ASSESSMENT AND PLAN: Impression: Right Hip Severe [...] activities which include walking 2 blocks, doing lens finisher, exercise, rising from a sitting position, standing [...] High: dx o (more content not included)... [facility] 07-30-2022 Instructions Jacob Singleton PA-C - 07/30/2022 [...] the next three days at the nearest [facility] lab. If you would like, you can [...] us: If you are having surgery at [facility] or If you are having surgery at [place], [place], [facility], [place], [place], [facility], or [facility] documented in this encounter [facility] 07-30-2022 History of Present illness Narrative CONSULT ORTHOPAEDIC: HIP PRIMARY CARE PHYSICIAN: Danielle Hernandez MD, MD REFERRING PROVIDER: Kushal Christian [address] [facility] [address] ASSESSMENT & PLAN: Impression: Right Hip Severe [...] activities which include walking 2 blocks, doing lens finisher, exercise, rising from a sitting position, standing [...] TIME: 9:28 AM documented in this encounter [facility] 07-23-2022 Note HNO ID: [id number] Author: Kushal Christian MD Service: ? Author Type: Physician Type: Progress Notes Filed: 07/23/2022 11:21 AM Note Text: see dictated not e Kushal Christian II, MD [facility] 07-23-2022 History of Present illness Narrative see dictated not e Kushal Christian II, MD documented in this encounter [facility] 07-20-2022 Note HNO ID: [id number] Author: RT Tri(Jacy) Service: ? Author Type: Blood Typer Type: Progress Notes Filed: 07/20/2022 12:57 PM [...] RT Tri(R) July 20, 2022 12:57 PM [facility] 07-20-2022 Note HNO ID: [id number] Author: Kushal Christian MD Service: Orthopaedic Surgery Author Type: Physician Type: Progress Notes Filed: 07/28/2022 9:32 AM Note Text: [facility] [address] [place], [place] [address] CLINIC NOTE Department of Orthopaedics - Oren Christian II, M.D. NAME: [facility] NO.: [id number] DATE OF SERVICE: 07/20/2022 CHIEF COMPLAINT: Severe [...] of his size difficult. I have suggested 89-mt-82-pound weight loss. In the interim, I have [...] Dictated: 07/21/2022 Date Typed: ambar 07/21/2022 JOB# [id number] [facility] 07-20-2022 History of Present illness Narrative Radiology [...] 2022 12:57 PM documented in this encounter [facility] Evaluation note No assessment inform ation available [facility] Work Phone: Evaluation note Diagnosis Primary osteoarthritis of left hip- Primary Primary localized osteoarthrosis, pelvic region and thigh Primary osteoarthritis of right hip Primary localized osteoarthrosis, pelvic region and thigh History of total left hip replacement documented in this encounter [facility] note* Diagnosis Primary osteoarthritis of right hip- Primary Primary localized osteoarthrosis, pelvic region and thigh History of DVT of lower extremity Personal history of venous thrombosis and embolism [facility] Diagnosis Primary osteoarthritis of right hip- Primary Primary localized osteoarthrosis, pelvic region and thigh History of DVT of lower extremity Personal history of venous thrombosis and embolism [facility]* Diagnosis Status post total replacement of right hip- Primary Primary osteoarthritis of right hip Primary localized osteoarthrosis, pelvic region and thigh [facility] Diagnosis Status post right hip replacement- Primary Hip joint replacement by other means [facility] Diagnosis Status post right hip replacement- Primary Hip joint replacement by other means [facility] Diagnosis Status post right hip replacement Hip joint replacement by other means [facility] Diagnosis Status post right hip replacement Hip joint replacement by other means [facility] Diagnosis Pain Generalized pain Preop examination- Primary Preoperative examination, unspecified Primary hypertension Unspecified essential hypertension History of DVT (deep vein thrombosis) Personal history of venous thrombosis and embolism Anticoagulated Long-term (current) use of anticoagulants Class 3 severe obesity with body mass index (BMI) of 40.0 to 44.9 in adult, unspecified obesity type, unspecified whether serious comorbidity present (HCC) documented in this encounter [facility] Discharge instructions Additional Instructions Continue taking your blood pressure medications, stay well-hydrated Return for worsening or changing chest pain, lightheadedness, nausea or vomiting [facility] Work Phone: [facility] (narrative)* Diagnostic Procedure Only (Routine) - Pending Review Specialty Diagnoses / Procedures Referred By Manny peña Referred To Contact XR IMAGING Diagnoses Primary osteoarthritis of right hip Procedures XR HIP GENERAL 3V PELV/AP/LAT RIGHT RADEX HIP UNILATERAL WITH PELVIS 2-3 VIEWS Kushal Christian MD [address] [place] [address] Xr Imaging Referral ID Status Reason Start Date Expiration Date Visits Requested Visits Authorized [id number] Pending Review Auto-Generat ed Referral 2 08/14/2023 1 1 [facility] for referral (narrative)* Diagnostic Procedure Only (Routine) - Closed Specialty Diagnoses / Procedures Referred By Contac t Referred To Contact XR IMAGING Diagnoses Status post right hip replacement Procedures XR HIP GENERAL 3V PELV/AP/LAT RIGHT RADEX HIP UNILATERAL WITH PELVIS 2-3 VIEWS Jacob Singleton PA-C [address] [place] [address] Xr Imaging Referral ID Status Reason Start Date Expiration Date V isits Requested Visits Authorized [id number] Closed Auto-Generate d Referral 10/08/2022 11/07/2023 1 1 [facility] for referral (narrative)* Diagnostic Procedure Only (Routine) - Closed Specialty Diagnoses / Procedures Referred By Contac t Referred To Contact XR IMAGING Diagnoses Status post right hip replacement Procedures XR HIP GENERAL 3V PELV/AP/LAT RIGHT RADEX HIP UNILATERAL WITH PELVIS 2-[place] [address] [place] [address] Xr Imaging Referral ID Status Reason Start Date Expiration Date V isits Requested Visits Authorized [id number] Closed Auto-Generate d Referral 11/10/2022 12/10/2023 1 1 [facility] for referral (narrative)* Diagnostic Procedure Only (Routine) - Closed Specialty Diagnoses / Procedures Referred By Contac t Referred To Contact XR IMAGING Diagnoses Status post right hip replacement Procedures XR HIP GENERAL 3V PELV/AP/LAT RIGHT RADEX HIP UNILATERAL WITH PELVIS 2-3 VIEWS Jacob Singleton PA-C [address] [place] [address] Xr Imaging Referral ID Status Reason Start Date Expiration Date V isits Requested Visits Authorized [id number] Closed Auto-Generate d Referral 12/15/2022 01/08/2024 1 1 [facility] for referral (narrative)* Diagnostic Procedure Only (Routine) - Closed Specialty Diagnoses / Procedures Referred By Contac t Referred To Contact XR IMAGING Diagnoses Status post right hip replacement Procedures XR HIP GENERAL 3V PELV/AP/LAT RIGHT RADEX HIP UNILATERAL WITH PELVIS 2-3 VIEWS Jacob Singleton PA-C [address] [place] [address] [place] [address] Referral ID Status Reason Start Date Expiration Date V isits Requested Visits Authorized [id number] Closed Auto-Generate d Referral 12/15/2022 01/08/2024 1 1 [facility] for referral (narrative)* Diagnostic Procedure Only (Routine) - Closed Specialty Diagnoses / Procedures Referred By Contac t Referred To Contact XR IMAGING Diagnoses Status post right hip replacement Procedures XR HIP GENERAL 3V PELV/AP/LAT RIGHT RADEX HIP UNILATERAL WITH PELVIS 2-[place] [address] [place] [address] [place] [address] Referral ID Status Reason Start Date Expiration Date V isits Requested Visits Authorized [id number] Closed Auto-Generate d Referral 11/10/2022 12/10/2023 1 1 [facility] for referral (narrative)* Diagnostic Procedure Only (Routine) - Closed Specialty Diagnoses / Procedures Referred By Contac t Referred To Contact XR IMAGING Diagnoses Status post right hip replacement Procedures XR HIP GENERAL 3V PELV/AP/LAT RIGHT RADEX HIP UNILATERAL WITH PELVIS 2-3 VIEWS Jacob Singleton PA-C [address] [place] [address] [place] [address] Referral ID Status Reason Start Date Expiration Date V isits Requested Visits Authorized [id number] Closed Auto-Generate d Referral 10/08/2022 11/07/2023 1 1 [facility] for referral (narrative)* Diagnostic Procedure Only (Routine) - Closed Specialty Diagnoses / Procedures Referred By Contac t Referred To Contact XR IMAGING Diagnoses Pain Procedures XR HIP GENERAL 3V PELV/AP/LAT RIGHT RADEX HIP UNILATERAL WITH PELVIS 2-3 VIEWS Kushal Christian MD [address] [place] [address] [place] [address] Referral ID Status Reason Start Date Expiration Date V isits Requested Visits Authorized [id number] Closed Auto-Generate d Referral 07/14/2022 08/13/2023 1 1 [facility] for visit Narrative* Diagnostic Procedure Only (Routine) - Closed Specialty Diagnoses / Procedures Referred By Contac t Referred To Contact XR IMAGING Diagnoses Pain Procedures XR HIP GENERAL 3V PELV/AP/LAT RIGHT RADEX HIP UNILATERAL WITH PELVIS 2-3 VIEWS Kushal Christian MD [address] [place] [address] [place] [address] Referral ID Status Reason Start Date Expiration Date V isits Requested Visits Authorized [id number] Closed Auto-Generate d Referral 07/14/2022 08/13/2023 1 1 [facility] Chief Complaint and Reason for Visit Chief [...] Procedures CONSULT TO VASCULAR MEDICINE OFFICE/OUTPATIENT [facility] MDM 60-74 MINUTES Jacob Singleton PA-C [address] [place] [address] Referral ID Status Reason Start Date Expiration Date Visits Requested Visits Authorized [id number] Authorized PCP Requested Referral 2 07/30/2023 1 1 Specialty Diagnoses / Procedures Referred By Contac t Referred To Contact [facility] Diagnoses Status post total replacement of right hip Procedures CONSULT TO PHYSICAL THERAPY PHYSICAL THERAPY EVALUATION HIGH COMPLEX 45 MINS Jacob Singleton PA-C [address] [place] [address] [facility] [address] [place] [address] Referral ID Status Reason Start Date Expiration Date Visits Requested Visits Authorized [id number] Pending Review Auto-Generat ed Referral 09/10/2022 09/10/2023 1 1 Additional Source Comments Care Teams (unrecognized sec tion and content) Team Status: Inactive Member Role Status Dates Danielle Hernandez MD Primary Care Provider Active Brendon Mcnamara DO Emergency Provider Active Norberto Booker MD RES Active Team Status: Active Member Role Status Dates Danielle Hernandez MD Primary Care Provider Active Director Of Supply Chain Relationship Specialty Start Date End Date Danielle Hernandez MD PCP - General Family Medicine 08/19/15 Director Of Supply Chain Relationship Specialty Start Date End Date Danielle Hernandez MD PCP - General Family Medicine 08/19/15 Director Of Supply Chain Relationship Specialty Start Date End Date Danielle Hernandez MD PCP - General Family Medicine 08/19/15 Director Of Supply Chain Relationship Specialty Start Date End Date Danielle Hernandez MD PCP - General Family Medicine 08/19/15 Director Of Supply Chain Relationship Specialty Start Date End Date Danielle Hernandez MD PCP - General Family Medicine 08/19/15 Director Of Supply Chain Relationship Specialty Start Date End Date Danielle Hernandez MD PCP - General Family Medicine 08/19/15 Director Of Supply Chain Relationship Specialty Start Date End Date Danielle Hernandez MD PCP - General Family Medicine 08/19/15 Director Of Supply Chain Relationship Specialty Start Date End Date Danielle Hernandez MD PCP - General Family Medicine 08/19/15 Director Of Supply Chain Relationship Specialty Start Date End Date Danielle Hernandez MD PCP - General Family Medicine 08/19/15 Director Of Supply Chain Relationship Specialty Start Date End Date Danielle Hernandez MD PCP - General Family Medicine 08/19/15 Director Of Supply Chain Relationship Specialty Start Date End Date Danielle Hernandez MD PCP - General Family Medicine 08/19/15 Director Of Supply Chain Relationship Specialty Start Date End Date Danielle [...] section and content) DATE CREATED AUTHOR 05/16/2022 [facility] DATE CREATED AUTHOR AUTHOR'S ORGANIZ ATION 08/22/2022 [facility] DATE CREATED AUTHOR AUTHOR'S ORGANIZ ATION 09/05/2022 [facility] DATE CREATED AUTHOR AUTHOR'S ORGANIZ ATION 09/29/2022 [facility] DATE CREATED AUTHOR AUTHOR'S ORGANIZ ATION 11/07/2022 [facility] DATE CREATED AUTHOR AUTHOR'S ORGANIZ ATION 12/17/2022 [facility] Source Comments (unrecognize d section and content) In the event this informatio n is protected by the Federal Confidentiality of Alcohol and Drug Abuse Patient Records regulations: The Federal rules restrict any use of the information to criminally investigate or prosecute any alcohol or drug abuse patient.[facility] the event this information is protected by the Federal Confidentiality of Alcohol and Drug Abuse Patient Records regulations: The Federal rules restrict any use of the information to criminally investigate or prosecute any alcohol or drug abuse patient.[facility] the event this information is protected by the Federal Confidentiality of Alcohol and Drug Abuse Patient Records regulations: The Federal rules restrict any use of the information to criminally investigate or prosecute any alcohol or drug abuse patient.[facility] the event this information is protected by the Federal Confidentiality of Alcohol and Drug Abuse Patient Records regulations: The Federal rules restrict any use of the information to criminally investigate or prosecute any alcohol or drug abuse patient.[facility] the event this information is protected by the Federal Confidentiality of Alcohol and Drug Abuse Patient Records regulations: The Federal rules restrict any use of the information to criminally investigate or prosecute any alcohol or drug abuse patient.[facility] the event this information is protected by the Federal Confidentiality of Alcohol and Drug Abuse Patient Records regulations: The Federal rules restrict any use of the information to criminally investigate or prosecute any alcohol or drug abuse patient.[facility] the event this information is protected by the Federal Confidentiality of Alcohol and Drug Abuse Patient Records regulations: The Federal rules restrict any use of the information to criminally investigate or prosecute any alcohol or drug abuse patient.[facility] the event this information is protected by the Federal Confidentiality of Alcohol and Drug Abuse Patient Records regulations: The Federal rules restrict any use of the information to criminally investigate or prosecute any alcohol or drug abuse patient.[facility] the event this information is protected by the Federal Confidentiality of Alcohol and Drug Abuse Patient Records regulations: The Federal rules restrict any use of the information to criminally investigate or prosecute any alcohol or drug abuse patient.[facility] the event this information is protected by the Federal Confidentiality of Alcohol and Drug Abuse Patient Records regulations: The Federal rules restrict any use of the information to criminally investigate or prosecute any alcohol or drug abuse patient.[facility] System[facility] the event this information is protected by the Federal Confidentiality of Alcohol and Drug Abuse Patient Records regulations: The Federal rules restrict any use of the information to criminally investigate or prosecute any alcohol or drug abuse patient.[facility] System[facility] the event this information is protected by the Federal Confidentiality of Alcohol and Drug Abuse Patient Records regulations: The Federal rules restrict any use of the information to criminally investigate or prosecute any alcohol or drug abuse patient.[facility] System[facility] the event this information is protected by the Federal Confidentiality of Alcohol and Drug Abuse Patient Records regulations: The Federal rules restrict any use of the information to criminally investigate or prosecute any alcohol or drug abuse patient.[facility] System[facility] the event this information is protected by the Federal Confidentiality of Alcohol and Drug Abuse Patient Records regulations: The Federal rules restrict any use of the information to criminally investigate or prosecute any alcohol or drug abuse patient.[facility] System[facility] the event this information is protected by the Federal Confidentiality of Alcohol and Drug Abuse Patient Records regulations: The Federal rules restrict any use of the information to criminally investigate or prosecute any alcohol or drug abuse patient.[facility] System[facility] the event this information is protected by the Federal Confidentiality of Alcohol and Drug Abuse Patient Records regulations: The Federal rules restrict any use of the information to criminally investigate or prosecute any alcohol or drug abuse patient.[facility] Reason for Visit (unrecogniz ed section and [...] WITH PELVIS 2-3 VIEWS Jacob Singleton PA-C [address] [place] [address] [place] [address] Referral ID Status Reason Start Date Expiration Date V isits Requested Visits Authorized [id number] Closed Auto-Generate d Referral 12/15/2022 01/08/2024 1 1 Reason Comments Radio Gen RMP Specialty Diagnoses / Procedures Referred By Contac t Referred To Contact XR IMAGING Diagnoses Status post right hip replacement Procedures XR HIP GENERAL 3V PELV/AP/LAT RIGHT RADEX HIP UNILATERAL WITH PELVIS 2-[place] [address] [place] [address] [place] [address] Referral ID Status Reason Start Date Expiration Date V isits Requested Visits Authorized [id number] Closed Auto-Generate d Referral 11/10/2022 12/10/2023 1 1 Referral ID Status Reason Start Date Expiration Date V isits Requested Visits Authorized [id number] Closed Auto-Generate d Referral 10/08/2022 11/07/2023 1 [...] BE BASED ON THE PRIMARY CLINICAL RECORDS. [employer] [facility]. provides no warranty or guarantee of the accuracy or completeness of information in this document.
--- OUTSIDE RECORDS SUMMARY | 2025-03-25 14:33 | XMS_ITS | Clinical Summary ---
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 Role Phone Unavailable Primary Care Provider Unavailabl e Social History Tobacco Use Types Packs/Day Years Used Date Smoking Tobacco: Never Assessed Sex and Gender Information Value Date Recorded Sex Assigned at Not on file Legal Sex Male 10:27 PM EST Gender Identity Not on file Sexual Orientation Not on file Plan of Treatment Health Maintenance Due Date Last Done Comments CT Colonography 1965 Colonoscopy 1965 Colorectal Cancer Screening 1965 FIT-DNA (Cologuard) 1965 FIT 1965 HIV Screening 1965 Lipid Panel 1965 Sigmoidoscopy 1965 Yearly Adult Physical 1965 MMR Vaccines (1 of 1 - Stand [place] series) 1964 Hepatitis C Screening 1981 DTaP/Tdap/Td Vaccines (1 - Tdap) 1985 Pneumococcal Vaccine (1 of 1 - PCV) 2013 Zoster Vaccines (1 of 2) 2013 COVID-19 Vaccine (1 - 2023-2 5 season) 2024 Influenza Vaccine (Season Ended) 2025 RSV High Risk: (Elderly (60+ ) or Population) (1 - 1-dose 75+ series) 2038 HIB Vaccines Aged Out No longer eligi ble based on patient's age to complete this topic HPV Vaccines Aged Out No longer eligi ble based on patient's age to complete this topic Hepatitis A Vaccines Aged Out No long er eligible based on patient's age to complete this topic Hepatitis B Vaccines Aged Out No long er eligible based on patient's age to complete this topic IPV Vaccines Aged Out No longer eligi ble based on patient's age to complete this topic Meningococcal Vaccine Aged Out No corie mely eligible based on patient's age to complete this topic Rotavirus Vaccines Aged Out No longer eligible based on patient's age to complete this topic
--- OUTSIDE RECORDS SUMMARY | 2025-03-25 14:33 | XMS_ITS | Patient Health Record ---
Author Organization [facility] [place] Address [address] [place] [address] Care Team Providers Care Machine Tender Name Role Phone Kashmir Hernandez Primary Care Provider [phone] BENJY HERNANDEZ Unavailable [phone] Allergies No Known Allergies Results Component Value Reference Range Notes CBC AUTO DIFF Reviewed date:04/03/2024 05:51:50 PM Interpretation: Performing Lab: Notes/Report: [facility] , White Blood Count 15.4 4.0-11.0 10 3/uL Red Blood Count 5.08 4.70-6.10 10 6/uL Hemoglobin 14.9 14.0-18.0 g/dL Hematocrit 43.8 42.0-54.0 % Mean Corpuscular Volume 86.2 80.0-94.0 fL Mean Corpuscular Hemoglobin 29.3 25.9-34.0 pg Mean Corpuscular HGB Conc 34.0 29.9-35.2 g/dL Red Cell Distribution Width 13.6 11.0-15.0 % Platelet Count 164 150-450 10 3/uL Mean Platelet Volume 9.9 9.5-13.5 fL Neutrophils Percent Auto 82.8 43.0-75.0 % Lymphocytes Percent Auto 8.0 20.5-60.0 % Monocytes Percent Auto 7.5 1.7-12.0 % Eosinophils Percent Auto 0.5 0.9-7.0 % Basophils Percent Auto 0.4 0.2-2.0 % Immature Granulocytes Pct Auto 0.8 0.0-0.5 % Neutrophils Absolute Auto 12.8 1.4-6.5 10 3/uL Lymphocytes Absolute Auto 1.2 1.2-3.8 10 3/uL Monocytes Absolute Auto 1.2 0.3-0.8 10 3/uL Eosinophils Absolute Auto 0.1 0.0-0.7 10 3/uL Basophils Absolute Auto 0.1 0.0-0.1 10 3/uL Immature Granulocytes Abs Auto 0.12 0.00-0.03 10 3/uL Performing Lab: see note ML - [facility] LB CRP Reviewed date:04/03/2024 05:51:50 PM Interpretation: Performing Lab: Notes/Report: [facility] , C Reactive Protein 3.00 <=0.50 mg/dL Performing Lab: see note ML - [facility] LB LACTATE or LACTIC ACID Reviewed date:04/03/2024 05:51:50 PM Interpretation: Performing Lab: Notes/Report: [facility] , Lactate/Lactic Acid 1.5 0.4-2.0 mmol/L Performing Lab: see note - [facility] PROF CHEM 8 (BAS METB) Reviewed date:04/03/2024 05:51:50 PM Interpretation: Performing Lab: Notes/Report: [facility] , Sodium 130 136-145 mmol/L Potassium 3.7 3.5-5.1 mmol/L Chloride 96 98-107 mmol/L Carbon Dioxide 26.5 21.0-32.0 mmol/L Anion Gap 11.2 Glucose 189 74-106 mg/dL Blood Urea Nitrogen 21.0 7.0-18.0 mg/dL Creatinine 1.32 0.70-1.30 mg/dL Estimated GFR ( Jenniffer >60 >=60 Estimated GFR (Non- Zayra 55 >=60 BUN Creatinine Ratio 15.9 Calcium 8.9 8.5-10.1 mg/dL Performing Lab: see note ML - [facility] LB Erythrocyte Sedimentation Ra te Reviewed date:04/03/2024 05:51:50 PM Interpretation: Performing Lab: Notes/Report: [facility] , Erythrocyte Sedimentation Rate 27 <=20 mm/hr Performing Lab: see note - [facility] LB CBC AUTO DIFF Reviewed date:03/14/2025 12:40:10 PM Interpretation: Performing Lab: Notes/Report: [facility] , White Blood Count 7.7 4.0-11.0 10 3/uL Red Blood Count 5.31 4.70-6.10 10 6/uL Hemoglobin 15.9 14.0-18.0 g/dL Hematocrit 46.0 42.0-54.0 % Mean Corpuscular Volume 86.6 80.0-94.0 fL Mean Corpuscular Hemoglobin 29.9 25.9-34.0 pg Mean Corpuscular HGB Conc 34.6 29.9-35.2 g/dL Red Cell Distribution Width 13.6 11.0-15.0 % Platelet Count 153 150-450 10 3/uL Mean Platelet Volume 10.0 9.5-13.5 fL Neutrophils Percent Auto 58.4 43.0-75.0 % Lymphocytes Percent Auto 29.4 20.5-60.0 % Monocytes Percent Auto 8.5 1.7-12.0 % Eosinophils Percent Auto 2.9 0.9-7.0 % Basophils Percent Auto 0.4 0.2-2.0 % Immature Granulocytes Pct Auto 0.4 0.0-0.5 % Neutrophils Absolute Auto 4.5 1.4-6.5 10 3/uL Lymphocytes Absolute Auto 2.3 1.2-3.8 10 3/uL Monocytes Absolute Auto 0.7 0.3-0.8 10 3/uL Eosinophils Absolute Auto 0.2 0.0-0.7 10 3/uL Basophils Absolute Auto 0.0 0.0-0.1 10 3/uL Immature Granulocytes Abs Auto 0.03 0.00-0.03 10 3/uL Performing Lab: see note ML - [facility] LB PROF CHEM 8 (BAS METB) Reviewed date:03/14/2025 12:40:10 PM Interpretation: Performing Lab: Notes/Report: [facility] , Sodium 141 136-145 mmol/L Potassium 3.6 3.5-5.1 mmol/L Chloride 104 98-107 mmol/L Carbon Dioxide 28.1 21.0-32.0 mmol/L Anion Gap 12.5 Glucose 112 74-106 mg/dL Blood Urea Nitrogen 29.0 7.0-18.0 mg/dL Creatinine 0.97 0.70-1.30 mg/dL Estimated GFR ( Jenniffer >60 >=60 mL/min/1.73m 2 Estimated GFR (Non- Zayra >60 >=60 mL/min/1.73m 2 BUN Creatinine Ratio 29.9 Calcium 9.4 8.5-10.1 mg/dL Performing Lab: see note ML - [facility] LB Erythrocyte Sedimentation Ra te Reviewed date:04/06/2024 12:00:58 PM Interpretation: Performing Lab: Notes/Report: [facility] , Erythrocyte Sedimentation Rate 42 <=20 mm/hr Performing Lab: see note ML - [facility] LB TSH Reviewed date:04/06/2024 12:00:58 PM Interpretation: Performing Lab: Notes/Report: [facility] , Thyroid Stimulating Hormone 1.918 0.358-3.740 uIU/mL Performing Lab: see note ML - [facility] LB T4 Reviewed date:04/06/2024 12:00:58 PM Interpretation: Performing Lab: Notes/Report: [facility] , T4 Thyroxine 9.60 4.50-12.10 ug/dL Performing Lab: see note ML - [facility] LB PSA SCREENING Reviewed date:04/06/2024 12:00:58 PM Interpretation: Performing Lab: Notes/Report: [facility] , Prostate Specific Antigen Scrn 0.68 <=4.00 ng/mL Performing Lab: see note ML - [facility] LB PROF 14(COMP METB) Reviewed date:04/06/2024 12:00:58 PM Interpretation: Performing Lab: Notes/Report: [facility] , Sodium 136 136-145 mmol/L Potassium 3.6 3.5-5.1 mmol/L Chloride 100 98-107 mmol/L Carbon Dioxide 27.5 21.0-32.0 mmol/L Anion Gap 12.1 Glucose 189 74-106 mg/dL Blood Urea Nitrogen 12.0 7.0-18.0 mg/dL Creatinine 1.02 0.70-1.30 mg/dL Estimated GFR ( Jenniffer >60 >=60 Estimated GFR (Non- Zayra >60 >=60 BUN Creatinine Ratio 11.8 Calcium 8.9 8.5-10.1 mg/dL Bilirubin Total 1.1 0.2-1.0 mg/dL Aspartate Amino Transferase 25 15-37 U/L Alanine Aminotransferase 42 16-63 U/L Alkaline Phosphatase 75 46-116 U/L Total Protein 7.6 6.4-8.2 g/dL Albumin Level 3.4 3.4-5.0 g/dL Globulin 4.2 Albumin Globulin Ratio 0.8 Performing Lab: see note ML - [facility] LB LIPID PROFILE Reviewed date:04/06/2024 12:00:58 PM Interpretation: Performing Lab: Notes/Report: [facility] , Triglycerides 152 <=150 mg/dL Cholesterol 189 <=200 mg/dL HDL Cholesterol 44 40-60 mg/dL <40 mg/dl - HIGH CARDIOVASCULAR RISK > or =60 mg/dl - LOW CARDIOVASCULAR RISK LDL Cholesterol Calculated 115.0 <100 mg/dl OPTIMAL 130-159 mg/dl BORDERLINE HIGH 160-189 mg/dl HIGH 100-129 mg/dl NEAR OR ABOVE OPTIMAL >190 mg/dl VERY HIGH VLDL CHOLESTEROL 30.4 Chol HDL Ratio 4.3 >11.0 HIGH RISK 3.3 - 4.4 LOW RISK 7.1 - 11.0 MODERATE RISK 4.4 - 7.1 AVERAGE RISK Performing Lab: see note ML - [facility] LB GLYCOHEMOGLOBIN A1C Reviewed date:04/06/2024 12:00:58 PM Interpretation: Performing Lab: Notes/Report: [facility] , Glycohemoglobin A1C 7.2 4.5-6.2 % > 7.0 ADA THERAPEUTIC TARGET < 7.0 ADA RECOMMENDED LIMIT 4.0 - 6.0 ACTION SUGGESTED Estimated Average Glucose 160 Performing Lab: see note ML - [facility] LB FREE T3 Reviewed date:04/06/2024 12:00:58 PM Interpretation: Performing Lab: Notes/Report: [facility] , Free T3 3.11 2.18-3.98 pg/mL Performing Lab: see note ML - [facility] LB CRP Reviewed date:04/06/2024 12:00:58 PM Interpretation: Performing Lab: Notes/Report: [facility] , C Reactive Protein 7.28 <=0.50 mg/dL Performing Lab: see note ML - [facility] LB CBC AUTO DIFF Reviewed date:04/06/2024 12:00:58 PM Interpretation: Performing Lab: Notes/Report: [facility] , White Blood Count 6.4 4.0-11.0 10 3/uL Red Blood Count 5.15 4.70-6.10 10 6/uL Hemoglobin 15.0 14.0-18.0 g/dL Hematocrit 44.9 42.0-54.0 % Mean Corpuscular Volume 87.2 80.0-94.0 fL Mean Corpuscular Hemoglobin 29.1 25.9-34.0 pg Mean Corpuscular HGB Conc 33.4 29.9-35.2 g/dL Red Cell Distribution Width 14.0 11.0-15.0 % Platelet Count 181 150-450 10 3/uL Mean Platelet Volume 10.0 9.5-13.5 fL Neutrophils Percent Auto 59.4 43.0-75.0 % Lymphocytes Percent Auto 26.9 20.5-60.0 % Monocytes Percent Auto 9.8 1.7-12.0 % Eosinophils Percent Auto 2.3 0.9-7.0 % Basophils Percent Auto 0.8 0.2-2.0 % Immature Granulocytes Pct Auto 0.8 0.0-0.5 % Neutrophils Absolute Auto 3.8 1.4-6.5 10 3/uL Lymphocytes Absolute Auto 1.7 1.2-3.8 10 3/uL Monocytes Absolute Auto 0.6 0.3-0.8 10 3/uL Eosinophils Absolute Auto 0.2 0.0-0.7 10 3/uL Basophils Absolute Auto 0.1 0.0-0.1 10 3/uL Immature Granulocytes Abs Auto 0.05 0.00-0.03 10 3/uL Performing Lab: see note ML - [facility] US venous doppler LE BI Reviewed date:04/04/2024 09:49:38 PM Interpretation: Performing Lab: Notes/Report: Source Facility: [facility] [address] [place] [address] Ultrasound Report Signed Patient: TOM ROY MR#: [id number] : 1965 Acct:[id number] Age/Sex: 58 / M ADM Date: 04/04/24 Loc: US Attending Dr: Benjy Hernandez M.D. Ordering Physician: Benjy Hernandez M.D. Date of Service: 04/04/24 Procedure(s): US venous doppler LE RT Accession Number(s): [id number] cc: Benjy Hernandez M.D. The [address] [id number] Patient Name: TOM ROY MRN: [id number] date: 1965 Sex: M Assigned Patient Location: US Current Patient Location: US Accession/Order Number: [id number] Exam Date: 04/04/2024 10:40 Report Date: 04/04/2024 13:01 At the request of: BENJY HERNANDEZ Procedure: US venous doppler LE RT EXAMINATION: US venous doppler LE RT HISTORY: Unspecified Injury To Right Leg ; trauma to right suarez COMPARISON: No relevant comparison available. FINDINGS: REGION: Right lower extremity THROMBI: None. COMPRESSIBILITY: Normal compressibility. FLOW: Normal waveform and antegrade flow between 5 and 20 cm/s. OTHER: Several small hypoechoic areas within subcutaneous soft tissues of the anterior lower extremity, likely representing bruising/small hematomas. US/US venous doppler LE RT IMPRESSION: 1. No deep vein thrombus within the right lower extremity. 2. Suspect mild bruising/scattered small hematomas within anterior lower right leg. Electronically authenticated by: BC MAJOR Date: 04/04/2024 13:01 Dictated By: Bc Major M.D. Signed By: 04/04/24 1304 DD/ 1301 TD/TT: Transcripter: [place] [address] Ultrasound Report Signed Patient: TOM ROY MR#: [id number] : 1965 Acct:[id number] Age/Sex: 58 / M ADM Date: 04/04/24 Loc: US Attending Dr: Shoshana Hernandez M.D. Ordering Physician: Benjy Hernandez M.D. Date of Service: 04/04/24 Procedure(s): US venous doppler LE RT Accession Number(s): [id number] cc: Benjy Hernandez M.D. [address] [id number] Patient Name: TOM ROY MRN: [id number] date: 1965 Sex: M Assigned Patient Location: US Current Patient Location: US Accession/Order Number: [id number] Exam Date: 04/04/2024 10:40 Report Date: 04/04/2024 13:01 At the request of: BENJY HERNANDEZ Procedure: US venous doppler LE RT EXAMINATION: US veno us doppler LE RT HISTORY: Unspecified Injury To Right Leg ; trauma to right suarez COMPARISON: No relevant comparison available. FINDINGS: REGION: Right lower extremity THROMBI: None. COMPRESSIBILITY: Normal compressibility. FLOW: Normal wavefor m and antegrade flow between 5 and 20 cm/s. OTHER: Several small hypoechoic areas within subcutaneous soft tissues of the anterior lower extremity, likely representing bruising/small hematomas. US/US venous doppler LE RT IMPRESSION: 1. No deep vein thrombus within the right lower extremity. 2. Suspect mild bruising/scattered small hematomas within anterior lower right leg. Electronically authenticated by: BC MAJOR Date: 04/04/2024 13:01 Dictated By: Bc Major M.D. Signed By: 04/04/24 1304 DD/ 1301 TD/TT: Transcripter: FLORA Gallegso, reflex to culture Reviewed date:03/14/2025 12:40:10 PM Interpretation: Performing Lab: Notes/Report: [facility] , Color Urine YELLOW YELLOW Clarity Urine CLEAR CLEAR Specific [place] Urine 1.010 1.005-1.025 pH Urine 6.0 5.0-9.0 Protein Urine NEGATIVE NEG/TRACE mg/dL Glucose Urine UA NEGATIVE NEGATIVE mg/dL Bilirubin Urine NEGATIVE NEGATIVE Ketones Urine NEGATIVE NEGATIVE mg/dL Blood Urine NEGATIVE NEGATIVE Nitrite Urine NEGATIVE NEGATIVE Urobilinogen Urine 1.0 0.2-1.0 EU/dL Leukocyte Esterase Urine NEGATIVE NEGATIVE WBC Urine NONE SEEN NONE SEEN #/HPF RBC Urine NONE SEEN 0-2 #/HPF Bacteria Urine NONE SEEN NONE SEEN #/HPF Mucus Urine NONE SEEN NONE SEEN Squamous Epithelial Cell Urine NONE SEEN NONE/RARE #/LPF Crystals Seen? None Seen None Seen #/HPF Cast Seen? NONE SEEN NONE SEEN #/LPF Urine Culture Indicated NO Performing Lab: see note ML - [facility] Reason For Referral No Information Medications Medication SIG (Take, Route, Frequency, Duration) Notes Start Date End Date Status CeleBREX 100 MG 1 capsule Orally Once a day for [address] Bharath beaulieu with this along with Eliquis for short script 03/14/2025 Active Lisinopril 40 MG TAKE 1 TABLET BY MOUTH EVERY DAY IN THE MORNING for 30 Active Metoprolol Succinate ER 25 MG 1 tablet Orally Once a day for 90 days Active Test Strips - Use 1 strip to monitor glucose via meter once daily DX E11.9 for 90 days 04/07/2024 Active hydroCHLOROthiazide 25 MG 1 tablet Orall y Once a day for 30 days Active Eliquis 5 MG TAKE 1 TABLET BY MOUTH TWICE A DAY for 30 Active Lancets 33G - Use 1 lancet to monitor glucose once daily DX E11.9 for 90 days 04/07/2024 Active Blood Glucose Meter -- Use monitor to monitor glucose once daily DX E11.9 for 365 days 04/07/2024 Active Social History Tobacco Use: Social History Observation Description Date Details (start date - stop date) Never Smoker NA - NA Tobacco Use/Smoking Question Answer Notes Patient is a nonsmoker Alcohol Screen (Audit-C) Question Answer Notes Did you have a drink containing alcohol in the p ast year? No Points 0 Interpretation Negative AUDIT-C (Standard) Question Answer Notes Did you have a drink containing alcohol in the p ast year? 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) Active confirmed Problem Ulcer of left lower leg (133364996068708 03) Leg ulcer, left (L97.929) Active confirmed Problem Chronic ulcer of left lower leg (disorder) (038049822162308 06) Chronic ulcer of left leg, limited to breakdown of skin (L97.921) Active confirmed Problem Diabetes mellitus (31210578) Diabetes mellitus (E11.9) Active confirmed Vital Signs Temperature 96.4 degrees Fahrenheit 04/04/2024 Blood pressure diastolic 78 mm Hg 04/04/2024 Height 70 in 04/04/2024 Blood pressure systolic 128 mm Hg 04/04/2024 Weight 308.8 lbs 04/04/2024 BMI 44.3 kg/m2 04/04/2024 Encounters Encounter Location Date Provider Diagnosis [facility] [address] [place] [address] 04/04/2024 Kashmir Hoy Cellulitis L03.90 [facility] [address] [place] [address] 04/03/2024 BENJY HOY [facility] [address] [place] [address] 04/04/2024 BENJY HOY Right groin pain R10.30 and Blunt trauma of right lower leg S89.91XA [facility] [address] [place] [address] 04/04/2024 BENJY HOY [facility] [address] [place] [address] 04/06/2024 BENJY HOY [facility] [address] [place] [address] 05/08/2024 Kashmir Connery [facility] [address] [place] [address] 03/14/2025 Kashmir Hernandez Assessments Encounter Date Diagnosis (ICD Code) Assessment Notes Treatment Notes Treatment Clinical Notes Section Notes 04/04/2024 Cellulitis (ICD-10 - L03.90) 04/04/2024 Right groin pain (ICD-10 - R10.30) 04/04/2024 Blunt trauma of right lower leg (ICD-10 - S89.91XA) Plan Of Treatment Pending Test Test Name Order Date CMP (COMPLETE METABOLIC PANEL) 3 CMP (COMPLETE METABOLIC PANEL) 4 CMP (COMPLETE METABOLIC PANEL) 4 HEMOGLOBIN A1C (GLYCO) 03/06/2024 HEMOGLOBIN A1C (GLYCO) 03/17/2023 INSULIN, TOTAL 03/17/2023 LIPID PANEL (CHOL/TRIG/HDL/LDL) 03/17/20 23 LIPID PANEL (CHOL/TRIG/HDL/LDL) 03/06/20 24 CBC WITH DIFF 03/06/2024 CBC WITH DIFF 03/17/2023 PSA, PROSTATE-SPECIFIC ANTIGEN 3 URIC ACID 03/17/2023 STOOL OCCULT BLOOD 03/06/2024 VL Extremity Venous Duplex Lower Right 0 04/04/2024 BNP 03/17/2023 CBC AUTO DIFF 04/04/2024 CRP 04/04/2024 SED RATE WESTERGREN 04/04/2024 US KARENA DOP LEG RT 04/04/2024 THYROID PANEL (T4/TSH/FREE T3) 4 THYROID PANEL (T4/TSH/FREE T3) 3 VC VENOUS REFLUX MARIAELENA LMT 03/17/2023 PSA, SCREENING 03/06/2024 CT lower leg LT wo con 12/24/2023 Insurance Providers Payer Name Payer Address Payer Phone Subscriber Number Group Number Insured Name Patient Relationship to Insured Coverage Start Date Coverage End Date [employer] PPO PLUS LOCAL PLAN [address] [place] [address] [id number] Tom Roy Self - patient is the insured Medications Administered Medication Instructions Date of Administration Dosage Notes Ceftriaxone 1 gram 04/04/2024 1 g 1 gram Medical (General) History Medical History History ICD Code Hypertension I10 Diverticular disease of colon K57.30 Chest pain R07.9 Thrombophlebitis I80.9 Plantar fascia syndrome M72.2 Near syncope R55 Edema R60.9 Duodenitis K29.80 Surgical History Surgery Date(Month/Year) Cholecystectomy 2009 Left Hip Replacement 10/21/15
--- NOTE | 2025-03-25 15:08 | ED_ITS ---
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 The patient does not remember the last time he had a tetanus booster Related Data Home Medications ?Medication ?Instructions ?Recorded ?Confirmed apixaban 5 mg tablet (Eliquis) 5 mg PO 04/03/24 hydrochlorothiazide 25 mg tablet 25 mg PO DAILY 03/14/25 lisinopril 40 mg tablet 40 mg PO DAILY 04/03/2403/04 metoprolol succinate 25 mg 25 mg PO DAILY 04/03/2408/28 tablet,extended release 24 hr Previous Rx's ?Medication ?Instructions ?Recorded erythromycin 5 mg/gram (0.5 %) eye 0.5 inch ophthalmic (eye) Q4H #50 03/25/25 ointment grams Allergies Allergy/AdvReac Type Severity Reaction Status Date / Time No Known Drug Allergies Allergy Verified 03/25/25 14:35 Review of Systems ROS Status of ROS 10 or more systems reviewed and unremark able except as noted in history and below PFSH PFSH Social History Little interest or pleasure in doing things: not at all Feeling down, depressed, or hopeless: not at all Exam Narrative Exam Narrative: Nurses notes and vital signs reviewed and patient is not hypoxic. General: Well-appearing and in no apparent distress. Skin: Warm, dry, no pallor noted. Right eye exam: The patient have conjunctival erythema and an obvious pinpoint like foreign body to the cornea mostly at the mid of the cornea. No hypopyon no hyphema no other ulceration After applying tetracaine and applying the fluorescent dye the patient needlepoint like size foreign body was seen and evaluated it is at the mid of the cornea There is no signs of trauma to the cornea itself other than that Constitutional Vital Signs, click to edit/add: Last Vital Signs Temp 97.7 F 03/25/25 14:31 Pulse 64 03/25/25 14:31 Resp 18 03/25/25 14:31 BP 132/78 03/25/25 14:31 Pulse Ox 96 03/25/25 14:31 O2 Del Method Room Air 03/25/25 14:31 Course Vital Signs Vital signs: Vital Signs Temperature 97.7 F 03/25/25 14:31 Pulse Rate 64 03/25/25 14:31 Respiratory Rate 18 03/25/25 14:31 Blood Pressure 132/78 03/25/25 14:31 Pulse Oximetry 96 03/25/25 14:31 Oxygen Delivery Method Room Air 03/25/25 14:31 Temperature 97.7 F 03/25/25 14:31 Pulse Rate 64 03/25/25 14:31 Respiratory Rate 18 03/25/25 14:31 Blood Pressure 132/78 03/25/25 14:31 Pulse Oximetry 96 03/25/25 14:31 Oxygen Delivery Method Room Air 03/25/25 14:31 MDM - Eye Problem MDM Narrative Medical decision making narrative: I did right now we will speak with the refinery operator reforming unit on-call for Igor Harrison And he recommended the patient to be started on erythromycin ointment and to follow-up with him tomorrow at noon in his office for foreign body removal The patient also provided with a tetanus booster in the ER The patient instructed about the importance of follow-up with Dr. Manning tomorrow in his office The patient understand the plan Discharge Plan Discharge Chief Complaint: Eye Problems Clinical Impression: Acute foreign body of cornea Patient Disposition: Home, Self-Care Time of Disposition Decision: 15:55 Condition: Good Prescriptions / Home Meds: New erythromycin 5 mg/gram (0.5 %) ointment 0.5 inch ophthalmic (eye) Q4H Qty: 50 0RF Rx Instructions: apply to the rt eye No Action hydrochlorothiazide 25 mg tablet 25 mg PO DAILY metoprolol succinate 25 mg tablet extended release 24 hr 25 mg PO DAILY lisinopril 40 mg tablet 40 mg PO DAILY Eliquis 5 mg tablet 5 mg PO Print Language: Japanese Instructions: Eye Foreign Body (ED) Referrals: Benjy Sinha MD [Primary Care Provider, Family Practice] - 1 week Shahbaz Manning MD [Physician, Opthalmology] - 03/26/25 Referral Note: [facility] [address] [place] [address] please call tomorrow morning to make sure you will see Dr Manning at afternoon for timing of the appointment
[2025-03-25] MEDS: ERYTHROMYCIN OP OINT 0.5% 1 GM TUBE OP (16:16)
[2025-03-25] MEDS: TETRACAINE HCL 0.5% OP SOL 80 DROP/4 ML BOTTLE OP (16:16)
[2025-03-25] MEDS: FLUORESCEIN SODIUM 1 MG STRIP OP (16:16)
[2025-03-25] MEDS: ADACEL DIPH,PERTUSS(ACELL),TET VAC/PF 0.5 ML ADULT SYRINGE IM (16:17)
== END 2025-03-25 16:24 | disposition home or self-care (01) ==
PROVIDERS: Emergency Provider Emergency Medicine; PCP Family Medicine
DX: T15.01XA Foreign body in cornea, right eye, initial encounter (principal); W44.D9XA Other magnetic metal objects entering into or through a natural orifice, initial encounter; Z23 Encounter for immunization
CPT/HCPCS: 90471; 90715; 99284

== ENCOUNTER 2025-05-31 07:06 | Outpatient (OUT) | payer BC, SELFPAY ==
--- OUTSIDE RECORDS SUMMARY | 2025-03-14 08:39 | XMS_ITS ---
Author Organization [facility] in [place] Address [address] [place] [address] Care Team Providers Care Cushion Padder Name Role Phone Kashmir Sinha Primary Care Provider REASON FOR VISIT ER Medications Medication SIG (Take, Route, Frequency, Duration) Notes Start Date End Date Status CeleBREX 100 MG 1 capsule Orally Onc e a day for [address] Bharath beaulieu with this along with Eliquis for short script 03/14/2025 Active Encounters Encounter Location Date Provider Diagnosis [facility] [address] [place] [address] 03/14/2025 Kashmir Sinha Plan Of Treatment Medication Medication Name Sig Start Date Stop Date Notes CeleBREX 100 MG 1 capsule Orally Onc e a day for 10 days 03/14/2025 Dr Bharath beaulieu with this along with Eliquis for short script Progress Notes * Guy ROY LDOB:10/1964 (59 yo M)Acc No.[id number]:03/14/2025 Patient: Lacey GROVEGuy ANDERSON :1965 A ge:59 Y S ex:Male Address:[address] [place] [id number] * Refills Start CeleBREX Capsule, 100 MG, Orally, 10 Capsule, 1 capsule, Once a day, 10 days, Refills=0 * true * Date: Generated for Printi ng/Faxing/eTransmitting on: 0 05/31/2025 07:09 AM EDT
--- OUTSIDE RECORDS SUMMARY | 2025-05-14 12:35 | XMS_ITS ---
Author Organization [facility] in [place] Address [address] [place] [address] Care Team Providers Care Manager Life Sciences Name Role Phone Kashmir Sinha Primary Care Provider REASON FOR VISIT Yearly Appt Encounters Encounter Location Date Provider Diagnosis [facility] [address] [place] [address] 05/14/2025 Kashmir Sinha Plan Of Treatment No Information Progress Notes * Guy ROY LDOB:10/1964 (59 yo M)Acc No.[id number]:05/14/2025 Patient: Lacey Guy TEJADA :1965 A ge:59 Y S ex:Male Address:[address] [place] [address] * true * Date: Generated for Eleazari roseann/Rdg/eTransmitting on: 0 05/31/2025 07:09 AM EDT
--- OUTSIDE RECORDS SUMMARY | 2025-05-22 05:00 | XMS_ITS ---
Author Organization [facility] in [place] Address [address] [place] [address] Care Team Providers Care Lithographic Etcher Name Role Phone Kashmir Sinha Primary Care Provider [phone] Allergies No Known Allergies REASON FOR VISIT yearly wellness, patient is co numbness in both feet Medications Medication SIG (Take, Route, Frequency, Duration) Notes Start Date End Date Status Lancets 33G - Use 1 lancet to monitor glucose once daily DX E11.9 for 90 days 04/07/2024 Active Lisinopril 40 MG TAKE 1 TABLET BY HANDY TH EVERY DAY IN THE MORNING for 30 days Active Metoprolol Succinate ER 25 MG TAKE 1 TAB LET BY MOUTH EVERY DAY FOR 90 DAYS for 90 Active Blood Glucose Meter -- Use monitor to mo nitor glucose once daily DX E11.9 for 365 days 04/07/2024 Active Eliquis 5 MG TAKE 1 TABLET BY HANDY TH TWICE A DAY for 30 Active Test Strips - Use 1 strip to monit or glucose via meter once daily DX E11.9 for 90 days 04/07/2024 Active hydroCHLOROthiazide 25 MG TAKE 1 TABLET BY MOUTH EVERY DAY FOR 30 DAYS for 90 Active Social History Tobacco Use: Social History Observation Description Date Details (start date - stop date) Never Smoker NA - NA Tobacco Use/Smoking Question Answer Notes Patient is a nonsmoker AUDIT-C (Standard) Question Answer Notes Did you have a drink containing alcohol in the p ast year? No Points 0 Interpretation Negative Problems Problem Type SNOMED Code ICD Code Onset Dates Problem Status W/U Status Risk Notes Problem Well adult (354942876) Well adult (Z00.00) Active confirmed Problem Diabetic neuropathy (953818686) Diabetic neuropathy (E11.40) Active confirmed Vital Signs Blood pressure systolic 134 mm Hg 05/22/20 25 Blood pressure diastolic 80 mm Hg 025 Height 70 in 05/22/2025 Weight 265 lbs 05/22/2025 BMI 38.02 kg/m2 05/22/2025 Encounters Encounter Location Date Provider Diagnosis [facility] [address] [facility] [place] [address] 05/22/2025 Kashmir Sinha Well adult Z00.00 an d Diabetic neuropathy E11.40 Assessments Encounter Date Diagnosis (ICD Code) Assessment Notes Treatment Notes Treatment Clinical Notes Section Notes 05/22/2025 Well adult (ICD-10 - Z00.00) 05/22/2025 Diabetic neuropathy (ICD-10 - E11.40) Plan Of Treatment Medication Medication Name Sig Start Date Stop Date Notes Metoprolol Succinate ER 25 MG TAKE 1 TAB LET BY MOUTH EVERY DAY FOR 90 DAYS for 90 hydroCHLOROthiazide 25 MG TAKE 1 TABLET BY MOUTH EVERY DAY FOR 30 DAYS for 90 Pending Test Test Name Order Date HEMOGLOBIN A1C (GLYCO) 05/22/2025 INSULIN, TOTAL 05/22/2025 LIPID PANEL (CHOL/TRIG/HDL/LDL) 05/22/20 25 THYROID PANEL (T4/TSH/FREE T3) PSA, SCREENING 05/22/2025 CMP (COMP MET CABA) w/eGFR CKD-EPI 2024 CBC WITH DIFF 05/22/2025 Progress Notes * Guy HOLLOWAY LDOB:10/1964 (59 yo M)Acc No.[id number]:05/22/2025 Progress Note Patient: Lacey GROVESRAVANIAaronGuy Provider: Nader Sinha ([facility])MD :1965 A ge:59 Y S ex:Male Date:05/22/2025 Address:[address] [place], [place] [address] Check In:08:51 AM ESTCheck O ut:09:39 AM EST Subjective: * Chief Complaints: * Y early wellnessPatient is co numbness in both feet * HPI: G eneral: Feet numbness - been going on for over a year - gettiong worse - good days and bad - Left now progressing up - R is more stil ball of foot - no loss of strength will hold on treatmetn - sugars doing well blood pressue good at home stil on eliqui- usp - no issues. * ROS: E ENT: hearing changes d enies. v isual changes d enies.?non-healing mouth sores d enies. s wollen glands or neck lumps d enies. h oarseness d enies. s ore throat d enies. d ifficulty swallowing d enies. n ose bleeds d enies. n erin congestion d enies. e ar ache d enies. e ar discharge?denies. r inging in ears d enies. l ight sensitivity d enies. e ye pain d enies. b lurring d enies. e ye irritation d enies. d ouble vision d enies.?vision loss d enies. G eneral/Constitutional: Sweats: D enies. F atigue d enies. S leep problems d enies. A norexia d enies. M alaise d enies. W eight loss d enies.?Fatigue or Weakness d enies. F ever or Chills d enies. C ardiovascular: Shortness of Breath w/lying flat d enies. L ightheadedness/dizziness d enies. C hest tightness/ heavy pressure d enies. S welling of legs, ankles, or feet d enies. W aking up with shortness of breath d enies. C hest pain denies. P alpitations d enies. W eight gain d enies. R espiratory: Chronic or frequent cough d enies. C oughing up blood?denies. D ifficulty breathing d enies. P roductive cough d enies. S noring?denies. S hortness of breath that awakens from sleep (PND) d enies. C hest pain d enies. S putum production d enies. W heezing d enies. M usculoskeletal: Joint pain d enies. J oint Fluid d enies. B ack pain d enies. K nee pain d enies. N salvatore pain d enies. J oint Stiffness d enies. M uscle cramps d enies. W eakness of muscles d enies. A rthritis d enies. M uscle aches d enies. P ain in shoulder(s) d enies. S wollen joints d enies. 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 * Family History: F ather: alive 80 yrs. M other: alive 80 yrs. B rother(s): alive. S ister(s): alive. S on(s): alive. D aughter(s): alive. 1 brother(s) , 1 sister(s) . 1 son(s) , 1 daughter(s) - healthy. . * Social History: T obacco Use: T obacco Use/Smoking P atient is a n onsmoker D rug/Alcohol: A CHARLY-C (Standard) D id you have a drink containing alcohol in the past year? N o P oints 0 I nterpretation N egative * Medications: T akingBlood Glucose Meter -- -- Use monitor to monitor glucose once daily DX E11.9 Eliquis(Apixaban) 5 MG Tablet TAKE 1 TABLET BY MOUTH TWICE A DAY hydroCHLOROthiazide 25 MG Tablet TAKE 1 TABLET BY MOUTH EVERY DAY FOR 30 DAYS Lancets 33G(Lancets) - Miscellaneous Use 1 lancet to monitor glucose once daily DX E11.9 Lisinopril 40 MG Tablet TAKE 1 TABLET BY MOUTH EVERY DAY IN THE MORNING Metoprolol Succinate ER 25 MG Tablet Extended Release 24 Hour TAKE 1 TABLET BY MOUTH EVERY DAY FOR 90 DAYS Test Strips - - Use 1 strip to monitor glucose via meter once daily DX E11.9 Medication List reviewed and reconciled with the patientTaking Blood Glucose Meter -- -- Use monitor to monitor glucose once daily DX E11.9 Taking Eliquis(Apixaban) 5 MG Tablet TAKE 1 TABLET BY MOUTH TWICE A DAY Taking hydroCHLOROthiazide 25 MG Tablet TAKE 1 TABLET BY MOUTH EVERY DAY FOR 30 DAYS Taking Lancets 33G(Lancets) - Miscellaneous Use 1 lancet to monitor glucose once daily DX E11.9 Taking Lisinopril 40 MG Tablet TAKE 1 TABLET BY MOUTH EVERY DAY IN THE MORNING Taking Metoprolol Succinate ER 25 MG Tablet Extended Release 24 Hour TAKE 1 TABLET BY MOUTH EVERY DAY FOR 90 DAYS Taking Test Strips - - Use 1 strip to monitor glucose via meter once daily DX E11.9 Medication List reviewed and reconciled with the patient * Allergies: N .K.D.A.no[Allergies Verified] Objective: * Vitals: W t:265lbs, Ht: 70 in, BP:134/80mm Hg, BMI:38.02Index, Ht-cm: 177.8 cm, Wt-k.2 kg. * Examination: P hysical Exam: GENERAL: w ell developed, well nourished, in no acute distress. HEAD: n ormocephalic/atraumatic. EYES: p upils equal, round and reactive to light, conjunctivae and sclerae normal. EARS: n o deformity or lesion of external ear, canals and TM appear normal bilaterally, TM's intact, not inflamed with normal light reflex, hearing grossly normal to conversational speech. NOSE: n o deformity, discharge, inflammation, or lesions.? MOUTH: m ucous membranes moist, normal oropharynx and posterior pharynx without lesions or exudates, tongue normal, dentition normal. NECK: n salvatore supple, no masses or palpable cervical nodes, trachea midline, thyroid without nodules, masses, tenderness, or enlargement. CHEST: n o chest wall deformity, no chest wall tenderness.? LUNGS: n ormal respiratory effort and clear to auscultation, no wheezes, rales, or rhonchi, good air exchange. CARDIO: r egular rate and rhythm, normal S1 and S2, nor murmur, rub, or gallop. PULSES: n ormal capillary refill. ABDOMEN: s oft, non-distended, non-tender, no masses. MUSCULOSKELETAL: n o deformity or scoliosis noted, normal range of motion, joints normal, no erythema, edema, effusion, or ecchymosis. EXTREMITY: n o clubbing, cyanosis, edema, or deformity with normal ROM in both upper and lower bilateral extremities. NEUROLOGIC: g rossly normal. SKIN: n o rashes, ulcerations, or suspicious lesions. LYMPH NODES: n o cervical adenopathy, nodes normal. MENTAL STATUS: a lert and oriented x3, normal mood and affect. Assessment: * Assessment: 1. W ell adult - Z00.00 (Primary) 2 . D iabetic neuropathy - E11.40 ? Plan: * Treatment: * Procedure Codes: 3 075F DIABETIC SYSTOLIC [id number] DIABETIC DIASTOLIC BP * * Sign off status: Completed Visit Status: C HK (Check Out) true * Provider: Nader Sinha ([facility])MD Date: 0 05/22/2025 Generated for Printi ng/Fachrisg/eTransmitting on: 0 05/31/2025 07:09 AM EDT History and Physical Notes * HPI (History of Present Illness) Category Sub-Category Detail Notes Category Not es General Feet numbness - been going on for over a year - gettiong worse - good days and bad - Left now progressing up - R is more stil ball of foot - no loss of strength will hold on treatmetn - sugars doing well blood pressue good at home stil on eliqui- usp - no issues Examination Category Sub-Category Detail Notes Category Not es Physical Exam GENERAL: well developed, well nourished, in no acute distress HEAD: normocephalic/atraum atic EYES: pupils equal, round and reactive to light, conjunctivae and sclerae normal EARS: no deformity or lesi on of external ear, canals and TM appear normal bilaterally, TM's intact, not inflamed with normal light reflex, hearing grossly normal to conversational speech NOSE: no deformity, discha rge, inflammation, or lesions MOUTH: mucous membranes [address] st, normal oropharynx and posterior pharynx without lesions or exudates, tongue normal, dentition normal NECK: neck supple, no mass es or palpable cervical nodes, trachea midline, thyroid without nodules, masses, tenderness, or enlargement CHEST: no chest wall deform ity, no chest wall tenderness LUNGS: normal respiratory e ffort and clear to auscultation, no wheezes, rales, or rhonchi, good air exchange CARDIO: regular rate and rhy thm, normal S1 and S2, nor murmur, rub, or gallop PULSES: normal capillary ref ill ABDOMEN: soft, non-distended, non-tender, no masses RECTAL: MUSCULOSKELETAL: no deformity or scol iosis noted, normal range of motion, joints normal, no erythema, edema, effusion, or ecchymosis EXTREMITY: no clubbing, cyanosi s, edema, or deformity with normal ROM in both upper and lower bilateral extremities NEUROLOGIC: grossly normal SKIN: no rashes, ulceratio ns, or suspicious lesions LYMPH NODES: no cervical adenopat hy, nodes normal MENTAL STATUS: alert and oriented x 3, normal mood and affect
--- OUTSIDE RECORDS SUMMARY | 2025-05-31 07:09 | XMS_ITS | Clinical Summary ---
Author Organization [facility] Address [address] [place] [address] Care Team Providers Care Spool Winder Name Role Phone Benjy Sinha MD Primary Care Provider [phone] Allergies No known active allergies Medications Eliquis 5 MG tablet Take 5 mg by mouth in the morning and 5 mg before bedtime. Active Blood Glucose Monitoring Suppl (True Metrix Meter) w/Device kit TEST ONCE A DAY 4 Active erythromycin (Romycin) 5 MG/GM ophthalmic ointment 5 Active True Metrix Blood Glucose Test test strip TEST ONCE A DAY 4 Active lisinopril 40 MG tablet Take 40 mg by mouth in the morning. Active metoprolol succinate XL (Toprol-XL) 25 MG 24 hr tablet TAKE 1 TABLET BY MOUTH EVERY DAY FOR 90 DAYS Active prednisoLONE acetate (Pred-Forte) 1 % ophthalmic suspensionIndic ations:Foreign body of right cornea, initial encounter Administer 1 drop into the right eye in the morning and 1 drop at noon and 1 drop in the evening and 1 drop before bedtime. 5 mL 5 Active Active Problems Problem Noted Date Diagnosed Date Foreign body of right cornea 03/26/2025 Encounters Date Type Department Care Team Description 03/28/2025 2:30 PM EDT Office Visit [facility] [address] [place] [address] Shahbaz Manning DO Foreign body of right cornea, initial encounter (Primary Dx) 03/28/2025 Bamboo flowsheet [facility] [address] [place] [address] Shahbaz Manning, 03/28/2025 Travel 03/26/2025 1:00 PM EDT Office Visit [facility] [address] [place] [address] Shahbaz Manning, Foreign body of right cornea, initial encounter (Primary Dx) 03/26/2025 Bamboo flowsheet [facility] [address] [place] [address] Shahbaz Manning, 03/26/2025 Travel from Last 3 Months Family History Medical History Relation Name Comments Cataracts Mother Relation Name Status Comments Mother Social History Tobacco Use Types Packs/Day Years Used Date Smoking Tobacco: Never Smokeless Tobacco: Never Tobacco Cessation:Counseling Given: Not Answered Sex and Gender Information Value Date Recorded Sex Assigned at Not on file Legal Sex Male 6:39 PM EDT Gender Identity Not on file Sexual Orientation Not on file Plan of Treatment Health Maintenance Due Date Last Done Comments CT Colonography 1965 Colonoscopy 1965 Colorectal Cancer Screening 1965 FIT-DNA 1965 FIT 1965 FOBT 1965 Sigmoidoscopy 1965 Influenza Vaccine (#1) 2025 Insurance BS Care Teams Spool Winder Relationship Specialty Start Date End Date Benjy Sinha MD [address] [place] [address] PCP - General Family Medicine 03/26/25
--- OUTSIDE RECORDS SUMMARY | 2025-05-31 07:09 | XMS_ITS | Encounter Summary ---
Author Organization [facility] Address [address] [place] [address] Care Team Providers Care Headhunter Name Role Phone Benjy Sinha MD Primary Care Provider [phone] Reason for Visit * Reason Comments Med Refill Encounter Details Date Type Department Care Team (Late st Contact Info) Description 05/20/2023 Refill [facility] [address] [place] [address] Courtney Cast, NIP WRAPPER [address] [place] [address] Essential hypertension Social History Tobacco Use Types Packs/Day Years Used Date Smoking Tobacco: Never Smokeless Tobacco: Never Alcohol Use Standard Drinks/Week Comments Yes 0 (1 standard drink = 0.6 oz pur e alcohol) occasional Sex and Gender Information Value Date Recorded Sex Assigned at Not on file Legal Sex Male 11:53 PM EDT Gender Identity Not on file Sexual Orientation Not on file documented as of this encounter Plan of Treatment Not on file documented as of this encounter Visit Diagnoses Diagnosis Essential hypertension Unspecified essential hypertension documented in this encounter Care Teams Headhunter Relationship Specialty Start Date End Date Benjy Sinha MD [address] [place] [address] PCP - General 08/12/22 documented as of this encounter
--- OUTSIDE RECORDS SUMMARY | 2025-05-31 07:09 | XMS_ITS | Clinical Summary ---
Author Organization [facility] Address [address] [place] [address] Care Team Providers Care Upholstery Trimmer Name Role Phone Benjy Sinha MD Primary Care Provider [phone] Allergies No known active allergies Medications apixaban (Eliquis) 5 mg tablet Take 1 tablet twice a day by oral route for 30 days. Active metoprolol succinate XL (Toprol-XL) 25 mg 24 hr tablet Take 25 mg by mouth in the morning. Do not crush or chew. Active lisinopril 40 mg tablet Take 40 mg by mouth in the morning. Active tiZANidine (Zanaflex) 4 mg tablet Take 4 mg by mouth every 6 (six) hours if needed for muscle spasms. Active blood pressure monitor kitIndications:Es sential hypertension 1 Units 1 (one) time for 1 dose. 1 kit 08/12/2022 Active amLODIPine (Norvasc) 5 mg tabletIndications :Essential hypertension Take 1 tablet (5 mg) by mouth in the morning. 30 tablet 11 08/18/2022 Active hydroCHLOROthiazi de (HYDRODiuril) 25 mg tabletIndications :Essential hypertension Take 1 tablet (25 mg) by mouth in the morning. 90 tablet 3 05/20/2023 Active Active Problems Problem Noted Date Diagnosed Date Pre-operative cardiovascular examination, high r isk surgery 08/12/2022 Assessment & Plan (08/12/2022 11:06 AM EST): RCRI- 0 points Class I Risk 3.9 % 30-day risk of , UT, or cardiac arrest EKG today sinus bradycardia [...] hip surgery he developed extensive DVT/PE. Hypertension 07/20/2018 Assessment & Plan (08/12/2022 11:08 AM EST): Currently uncontrolled in office- pt does not [...] patient next week to review blood pressures Chest pain 10/28/2016 Deep venous thrombosis 10/28/2016 Assessment & Plan (08/12/2022 11:09 AM EST): Remains on eliquis anticoagulation Hypoxia 10/28/2016 Pulmonary embolism 10/28/2016 Assessment & Plan (08/12/2022 11:08 AM EST): Remains on Eliquis anticoagulation per PCP History of total hip replacement 12/04/2015 Primary osteoarthritis of left hip 10/21/2015 Family History Medical History Relation Name Comments Deep vein thrombosis Mother's Sister Relation Name Status Comments Mother's Sister Social History Tobacco Use Types Packs/Day Years Used Date Smoking Tobacco: Never Smokeless Tobacco: Never Tobacco Cessation:Counseling Given: Not Answered Alcohol Use Standard Drinks/Week Comments Yes 0 (1 standard drink = 0.6 oz pur e alcohol) occasional [place] Safety & Environment Answer Date Rec orded Fear of Current or Ex-Partner Not on file Emotionally Abused Not on file 11/25/2023 Physically Abused Not on file 11/25/2023 Sexually Abused Not on file 11/25/2023 Physically or Sexually Abused Not on file Sex and Gender Information Value Date Recorded Sex Assigned at Not on file Legal Sex Male 11:53 PM EDT Gender Identity Not on file Sexual Orientation Not on file Last Filed Vital Signs Vital Sign Reading Time Taken Comments Blood Pressure 162/93 08/12/2022 10:10 AM EST Pulse 60 08/12/2022 10:10 AM EST Temperature - - Respiratory Rate - - Oxygen Saturation 95% 08/12/2022 10:10 AM EST Inhaled Oxygen Concentration - - Weight 137 kg (301 lb) 08/12/2022 10:10 AM EST Height 182.9 cm (6') 08/12/2022 10:10 AM EST Body Mass Index 40.82 08/12/2022 10:10 AM EST Plan of Treatment Health Maintenance Due Date Last Done Comments CT Colonography 1963 Colonoscopy 1963 Colorectal Cancer Screening 1963 FIT-DNA 1963 FIT 1963 FOBT 1963 Sigmoidoscopy 1963 Depression Screening 1975 Adult Tetanus 1985 Zoster Vaccines (1 of 2) 2013 Influenza Vaccine (#1) 2025 HIB Vaccines Aged Out No longer eligi ble based on patient's age to complete this topic HPV Vaccines Aged Out No longer eligi ble based on patient's age to complete this topic IPV Vaccines Aged Out No longer eligi ble based on patient's age to complete this topic Meningococcal B Vaccine Aged Out No l onger eligible based on patient's age to complete this topic Meningococcal Vaccine Aged Out No corie mely eligible based on patient's age to complete this topic Pneumococcal Vaccine: Pediat rics (0 to 5 Years) and At-Risk Patients (6 to 64 Years) Aged Out No longer eligible b ased on patient's age to complete this topic Rotavirus Vaccines Aged Out No longer eligible based on patient's age to complete this topic [facility] Care Teams Upholstery Trimmer Relationship Specialty Start Date End Date Benjy Sinha MD [address] [facility] [place] [address] PCP - General 08/12/22
--- OUTSIDE RECORDS SUMMARY | 2025-05-31 07:09 | XMS_ITS | Patient Health Record ---
Author Organization [facility] [place] Address [address] [place] [address] Care Team Providers Care Resolution Expert Name Role Phone Bharath Kashmir Primary Care Provider Allergies No Known Allergies Results Component Value Reference Range Notes CBC AUTO DIFF Reviewed date:03/14/2025 12:40:10 PM Interpretation: Performing Lab: Notes/Report: [facility] , White Blood Count 7.7 4.0-11.0 [...] 3/uL Performing Lab: see note ML - [facility] UA Micro, reflex to culture Reviewed date:03/14/2025 12:40:10 PM Interpretation: Performing Lab: Notes/Report: [facility] , Color Urine YELLOW YELLOW Clarity Urine CLEAR CLEAR Specific [place] Urine 1.010 1.005-1.025 pH Urine 6.0 5.0-9.0 [...] Culture Indicated NO Performing Lab: see note - [facility] PROF CHEM 8 (BAS METB) Reviewed date:03/14/2025 12:40:10 PM Interpretation: Performing Lab: Notes/Report: [facility] , Sodium 141 136-145 mmol/L Potassium 3.6 3.5-5.1 mmol/L Chloride 104 98-107 mmol/L Carbon Dioxide 28.1 21.0-32.0 mmol/L Anion Gap 12.5 Glucose 112 74-106 mg/dL Blood Urea Nitrogen 29.0 7.0-18.0 mg/dL Creatinine 0.97 0.70-1.30 mg/dL Estimated GFR ( Jenniffer >60 >=60 mL/mi n/1.73m 2 Estimated GFR (Non- Zayra >60 >=60 mL/mi n/1.73m 2 BUN Creatinine Ratio 29.9 Calcium 9.4 8.5-10.1 mg/dL Performing Lab: see note ML - [facility] Reason For Referral No Information Medications Medication SIG (Take, Route, Frequency, Duration) Notes Start Date End Date Status Lancets 33G - Use 1 lancet to monitor glucose once daily DX E11.9 for 90 days 04/07/2024 Active Lisinopril 40 MG TAKE 1 TABLET BY HANDY TH EVERY DAY IN THE MORNING for 30 days Active Test Strips - Use 1 strip to monit or glucose via meter once daily DX E11.9 for 90 days 04/07/2024 Active hydroCHLOROthiazide 25 MG TAKE 1 TABLET BY MOUTH EVERY DAY FOR 30 DAYS for 90 Active Metoprolol Succinate ER 25 MG TAKE 1 TAB LET BY MOUTH EVERY DAY FOR 90 DAYS for 90 Active Blood Glucose Meter -- Use monitor to mo nitor glucose once daily DX E11.9 for 365 days 04/07/2024 Active Eliquis 5 MG TAKE 1 TABLET BY HANDY TH TWICE A DAY for 30 Active Social History Tobacco Use: Social History [...] Problem Status W/U Status Risk Notes Problem 14780505 Venous insufficiency (chronic) (peripheral) (I87.2) Active confirmed Problem Hypertension (05717650) Hypertension (I10) Active confirmed Problem Edema (31730887) Edema (R60.9) Active confirmed Problem Well adult (874892307) Well adult (Z00.00) Active confirmed Problem Cellulitis (465130060) Cellulitis (L03.90) Active confirmed Problem Diabetic neuropathy (916698947) Diabetic neuropathy (E11.40) Active confirmed Problem Diverticular disease of colon (287680566) Diverticular disease of colon (K57.30) Active confirmed Problem Non-pressure chronic ulcer left lower leg, 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) Active confirmed Problem Ulcer of left lower leg (731631967483782 03) Leg ulcer, left (L97.929) Active confirmed Problem Chronic ulcer of left lower leg (disorder) (735074652938953 06) Chronic ulcer of left leg, limited to breakdown of skin (L97.921) Active confirmed Problem Diabetes mellitus (77162667) Diabetes mellitus (E11.9) Active confirmed Vital Signs Blood pressure diastolic 80 mm Hg 05/22/2025 Height 70 in 05/22/2025 Blood pressure systolic 134 mm Hg 05/22/2025 Weight 265 lbs 05/22/2025 BMI 38.02 kg/m2 05/22/2025 Encounters Encounter Location Date Provider Diagnosis [facility] [address] [place] [address] 03/14/2025 [facility] [address] [place] [address] 05/14/2025 [facility] [address] [place] [address] 05/22/2025 [place] Sinha Well adult Z00.00 an d Diabetic neuropathy E11.40 Assessments Encounter Date Diagnosis (ICD Code) Assessment Notes Treatment Notes Treatment Clinical Notes Section Notes 05/22/2025 Well adult (ICD-10 - Z00.00) 05/22/2025 Diabetic neuropathy (ICD-10 - E11.40) Plan Of Treatment Pending Test Test Name Order Date CMP (COMPLETE METABOLIC PANEL) 4 CMP (COMPLETE METABOLIC PANEL) 4 CMP (COMPLETE METABOLIC PANEL) 3 HEMOGLOBIN A1C (GLYCO) 03/17/2023 HEMOGLOBIN A1C (GLYCO) 03/06/2024 HEMOGLOBIN A1C (GLYCO) 05/22/2025 INSULIN, TOTAL 05/22/2025 INSULIN, TOTAL 03/17/2023 LIPID PANEL (CHOL/TRIG/HDL/LDL) 03/17/20 23 LIPID PANEL (CHOL/TRIG/HDL/LDL) 05/22/20 25 LIPID PANEL (CHOL/TRIG/HDL/LDL) 03/06/20 24 CBC WITH DIFF 03/06/2024 CBC WITH DIFF 03/17/2023 PSA, PROSTATE-SPECIFIC ANTIGEN 3 URIC ACID 03/17/2023 STOOL OCCULT BLOOD 03/06/2024 VL Extremity Venous Duplex Lower Right 0 04/04/2024 BNP 03/17/2023 CBC AUTO DIFF 04/04/2024 CRP 04/04/2024 SED RATE WESTERGREN 04/04/2024 US KARENA DOP LEG RT 04/04/2024 THYROID PANEL (T4/TSH/FREE T3) 5 THYROID PANEL (T4/TSH/FREE T3) 4 THYROID PANEL (T4/TSH/FREE T3) 3 VC VENOUS REFLUX MARIAELENA LMT 03/17/2023 PSA, SCREENING 03/06/2024 PSA, SCREENING 05/22/2025 CT lower leg LT wo con 12/24/2023 CMP (COMP MET CABA) w/eGFR CKD-EPI 2024 CBC WITH DIFF 05/22/2025 Insurance Providers Payer Name Payer Address Payer Phone Subscriber Number Group Number Insured Name Patient Relationship to Insured Coverage Start Date Coverage End Date [employer] [address] [place] [address] [id number] Guy Hunt Self - patient is the insured Medications [...]
--- OUTSIDE RECORDS SUMMARY | 2025-05-31 07:10 | XMS_ITS | Clinical Summary ---
Author Organization [facility] Address [address] [place] [address] Phone Care Team Providers Care [place] Administrator Name Role Phone Unavailable Primary Care Provider [...]
--- OUTSIDE RECORDS SUMMARY | 2025-05-31 07:10 | XMS_ITS | CCD ---
Author Organization [facility] CliniSyde Care Team Providers Care Credit Authorizer Name Role Phone MD Danielle Hernandez Primary Care Provider [phone] DO Brendon Mcnamara Emergency Provider Danielle Hernandez MD Primary Care Provider [phone] COURTNEY ROSAS Attending Unavailable Danielle Hernandez MD Primary Care Provider [phone] MARY, DR SANTOS Primary Care Unavailable HOY, DR SANTOS Admitting Unavailable HOY, DR SANTOS Attending Unavailable HOY, DR SANTOS Primary Care Unavailable MARKER, DR BHATT Attending Unavailable MARKER, DR BHATT Consulting Unavailable MARKER, DR BHATT Admitting Unavailable ZenaLiz Consulting Unavailable AKOSUAY, DR SANTOS Primary Care [...] Unavailable Danielle Hernandez MD Primary Care Provider [phone] JACOB SINGLETON Referring Unavailable HOY, DANIELLE M Primary Care Unavailable HOY, DANIELLE M Primary Care Unavailable ROBERT KAHN Referring Unavailable ROBERT KAHN Attending Unavailable KUSHAL CHRISTIAN Referring Unavailable HOY, DANIELLE M Primary Care Unavailable KUSHAL CHRISTIAN Attending Unavailable DANIELLE HERNANDEZ M Primary Care Unavailable KUSHAL CHRISTIAN Referring Unavailable HOYDANIELLE Primary Care Unavailable ROBERT KAHN Attending Unavailable JACOB SINGLETON Attending Unavailable MARYDANIELLE Drew Primary Care Unavailable DANIELLE HERNANDEZ M Primary Care Unavailable DANIELLE HERNANDEZ M Primary Care Unavailable DANIELLE HERNANDEZ M Primary Care Unavailable JACOB SINGLETON Referring Unavailable AKOSUADANIELLE Bridges M Primary Care Unavailable ROBERT KAHN Referring Unavailable JACOB SINGLETON Referring Unavailable MARYDANIELLE M Primary Care Unavailable MARYDANIELLE M Primary Care Unavailable ROBERT KAHN Referring Unavailable JACOB SINGLETON Attending Unavailable MARYDANIELLE M Primary Care Unavailable ROBERT KAHN Attending Unavailable ROBERT KAHN Referring Unavailable AKOSUADANIELLE Bridges M Primary Care Unavailable ROBERT KAHN Referring Unavailable Danielle Hernandez MD Primary Care Provider [phone] Danielle Hernandez MD Primary Care Provider [phone] DARREL CABRERA Attending Unavailable DARREL CABRERA Attending Unavailable Medications Current Medications Medication Drug Class(es) Dates Sig (Normalized) Sig (Original) Blood Glucose Monitoring Suppl (True Metrix Meter) w/Device kit (3 sources) Start: 04-07-2024 Blood Glucose Monitoring Suppl (True Metrix Meter) w/Device kit TEST ONCE A DAY 04/07/2024 Active erythromycin 0.005 mg/mg ophthalmic ointment (3 sources) Macrolide, Macrolide Antimicrobial Start: 03-25-2025 erythromycin (Romycin) 5 MG/GM ophthalmic ointment 03/25/2025 Active lisinopril 20 mg oral tablet (19 sources) Angiotensin Converting Enzyme Inhibitor Start: 10-14-2015 take 1 tablet by mouth once daily lisinopril (ZESTRIL, PRINIVIL) 20 mg tablet Take 1 tablet by mouth once daily. 0 10/14/2015 Active take 1 tablet by mouth in the mo rning lisinopril 40 MG tablet Take 40 mg by mouth in the morning. Active Comment on above: Take 1 tablet by tamela th once daily. prednisoLONE acetate 10 mg/ml ophthalmic suspension (1 source) Corticosteroid Start: 03-28-2025 prednisoLONE acetate (Pred-Forte) 1 % ophthalmic suspension Indications: Foreign body of right cornea, initial encounter Administer 1 drop into the right eye in the morning and 1 drop at noon and 1 drop in the evening and 1 drop before bedtime. 5 mL 03/28/2025 Active Completed/Discontinued Medications Medication Drug Class(es) Dates Sig (Normalized) Sig (Original) acetaminophen 500 mg oral tablet (6 sources) Start: 09-24-20 take 2 tablets by mouth every eight hours acetaminophen (TYLENOL) 500 mg tablet Take 2 tablets by mouth every 8 hours. 180 tablet 0 09/24/2022 Active Comment on above: Take 2 tablets by mo [facility] every 8 hours. amLODIPine 5 [...] capsule (5 sources) Penicillin-class Antibacterial Start: 10-09-19 amoxicillin (POLYMOX, AMOXIL) 500 mg capsule Take 4 capsules 1 hour prior to dentist 12 capsule 1 10/09/2022 Active Comment on above: Take 4 capsules 1 ho ur prior to dentist apixaban 5 mg oral tablet (6 sources) Factor Xa Inhibitor Start: 09-08-20 22 [...] succinate 25 mg extended release oral tablet (12 sources) beta-Adrenergic Christine Start: 09-08-20 take 1 [...] right hip replacement] Onset: 01-22-2016 Chronic Other injuries and conditions due to external causes (5 sources) Foreign body in right cornea; Translations: [Foreign body in cornea, right eye, initial encounter] Onset: 03-26-2025 03-26-2025 Episodic Other nervous system disorders (1 source) Other [...] Onset: 03-24-2022 Episodic Other aftercare (1 source) custodial (current) use of anticoagulants; Translations: [CLINICAL CARE LEADER CURRNT USE ANTICOAGULANTS] Onset: 03-26-2022 Episodic Other aftercare (1 source) Other [facility] (current) drug therapy; Translations: [OTH ASSISTED CURRENT DRUG THERAPY] Onset: 03-26-2022 Episodic Other aftercare (9 sources) Drug therapy finding; Translations: [custodial (current) use of anticoagulants] Onset: 09-09-2022 09-09-2022 [...] CNOV Office Visit (ORAVON ) GUY HOLLOWAY ([id number]) 1965 M Date Time Provider Department 12/15/22 2:30 PM ROBERT KHAN During your visit today, we recorded the [...] of dental prophy Referring Provider: ROBERT KAHN [[id number]] Allergies As of Date: 12/15/2022 (No Known Allergies) Date Reviewed: 12/15/2022 Reviewed by: Connie Bennett MA - Fully Assessed Reason for Visit: Post Op [174] Primary Visit Diagnosis:Status post right hip replacement [Z96.641] Order(s):XR HIP GENERAL 3V PELV/AP/LAT RIGHT [[id number]] Order #: [id number] FUTURE Prescriptions as of 12/15/2022 - amoxicillin [...] Status:Closed by ROBERT KAHN on 12/15/22 Normal [facility] No Panel Informationon 12-15 [facility] XR HIP 3V PELV+ AP/LAT RTon [...] in place with no evidence of complications. Meter Repairer Helper: RONNELL Transcribe Date/Time: Dec 15 2022 2:03P Dictated by : RACHEL NICHOLE MD This examination was interpreted and the report reviewed and electronically signed by: RACHEL NICHOLE MD on Dec 15 2022 2:04PM EST [id number] Normal [facility] CNOVon 11-10-2022 CNOV Office Visit (ORAVON ) MANUELAGUY L ([id number]) 1965 M Date Time Provider Department 11/10/22 [...] at month 3. Referring Provider: ROBERT KAHN [[id number]] Allergies As of Date: 11/10/2022 (No Known Allergies) Date Reviewed: 11/10/2022 Reviewed by: Connie Bennett MA - Fully Assessed Reason for Visit: Post Op [174] Primary Visit Diagnosis:Status post right hip replacement [Z96.641] Order(s):XR HIP GENERAL 3V PELV/AP/LAT RIGHT [[id number]] Order #: [id number] FUTURE Prescriptions as of 11/10/2022 - amoxicillin [...] Status:Closed by ROBERT KAHN on 11/10/22 Normal [facility] No Panel Informationon 11-10 [facility] XR HIP 3V PELV+ AP/LAT RTon [...] hip arthroplasty in place with intact hardware. Meter Repairer Helper: RONNELL Transcribe Date/Time: Nov 10 2022 3:49P Dictated by : RACHEL NICHOLE MD This examination was interpreted and the report reviewed and electronically signed by: RACHEL NICHOLE MD on Nov 10 2022 3:52PM EST [id number] Normal [facility] CNOVon 10-09-2022 CNOV Office Visit (ORAVON ) GUY HOLLOWAY ([id number]) 1965 M Date Time Provider Department 10/09/22 [...] Jacob Singleton PA-C Referring Provider: ROBERT KAHN [[id number]] Allergies As of Date: 10/09/2022 (No Known Allergies) Date Reviewed: 10/09/2022 Reviewed by: Connie Bennett MA - Fully Assessed Reason for Visit: Post Op [174] Primary Visit Diagnosis:Status post right hip replacement [Z96.641] Order(s):XR HIP GENERAL 3V PELV/AP/LAT RIGHT [[id number]] Order #: [id number] FUTURE amoxicillin (POLYMOX, AMOXIL) 500 mg capsuleTake [...] Status:Closed by JACOB SINGLETON on 10/09/22 Normal [facility] No Panel Informationon 10-09 [facility] XR HIP 3V PELV+ AP/LAT RTon [...] hip arthroplasty in place with intact hardware. Meter Repairer Helper: RONNELL Transcribe Date/Time: Oct 09 2022 10:17A Dictated by : RACHEL NICHOLE MD This examination was interpreted and the report reviewed and electronically signed by: RACHEL NICHOLE MD on Oct 09 2022 10:18AM EST [id number] Normal [facility] Basic metabolic 2000 panelon 09-24-2022 Anion gap [Moles/Vol] 9 mmol/L Normal 9-18 [facility] Comment on above: Order Comment: Ileana mace Type: BLOOD SPECIMENOrdering Facility: [facility] Address: [address] [address] Performed By: #### 2 4321-2 ####[facility]ORATORYCLIA [id number] [place] [address] [place] Calcium [Mass/Vol] 8.7 mg/dL Normal 8.5-10.2 [facility] Comment on above: Order Comment: Ileana mace Type: BLOOD SPECIMENOrdering Facility: [facility] Address: [address] [address] Performed By: #### 2 4321-2 ####[facility] LABORATORYCLIA [id number] [place] [address] [place] Chloride [Moles/Vol] 101 mmol/L Normal 97-105 [facility] Comment on above: Order Comment: Speci men Type: BLOOD SPECIMENOrdering Facility: [facility] Address: [address] [address] Performed By: #### 2 4321-2 ####[facility]ORATORYCLIA [id number] [place] [address] [place] CO2 [Moles/Vol] 27 mmol/L Normal 22-30 [facility] Comment on above: Order Comment: Speci men Type: BLOOD SPECIMENOrdering Facility: [facility] Address: [address] [address] Performed By: #### 2 4321-2 ####[facility]ORATORYCLIA [id number] [address] [place] Creatinine [Mass/Vol] 0.95 mg/dL Normal 0.73-1.22 [facility] Comment on above: Order Comment: Speci men Type: BLOOD SPECIMENOrdering Facility: [facility] Address: [address] [address] Performed By: #### 2 4321-2 ####[facility]ORATORYCLIA [id number] [address] [place] ESTIMATED GLOMERULAR FILTRATION RATE 92 mL/min/1.73m??? Normal >=60 [facility] Comment on above: Order Comment: Speci men Type: BLOOD SPECIMENOrdering Facility: [facility] Address: [address] [place] [address] Result Comment: Judy mated Glomerular Filtration Rate [...] actual GFR. Performed By: #### 2 4321-2 ####[facility]ORATORYCLIA [id number] [place] [address] [place] Glucose [Mass/Vol] 115 mg/dL High 74-99 [facility] Comment on above: Order Comment: Speci men Type: BLOOD SPECIMENOrdering Facility: [facility] Address: [address] [address] Result Comment: The [place] Diabetes Association (ADA) provides guidance for cutoff [...] Standards of Medical Care in Diabetes 2016, [place] [employer]. Diabetes Care. 2016.39(Suppl 1). Performed By: #### 2 4321-2 ####[facility]ORATORYCLIA [id number] [place] [address] [place] Potassium [Moles/Vol] 4.0 mmol/L Normal 3.7-5.1 [facility] Comment on above: Order Comment: Speci men Type: BLOOD SPECIMENOrdering Facility: [facility] Address: [address] [address] Performed By: #### 2 4321-2 ####[facility]ORATORYCLIA [id number] [place] [address] [place] Sodium [Moles/Vol] 137 mmol/L Normal 136-144 [facility] Comment on above: Order Comment: Speci men Type: BLOOD SPECIMENOrdering Facility: [facility] Address: [address] [address] Performed By: #### 2 4321-2 ####[facility] CENTERIA [id number] [place] [address] [place] Urea nitrogen [Mass/Vol] 15 mg/dL Normal 9-24 [facility] Comment on above: Order Comment: Speci men Type: BLOOD SPECIMENOrdering Facility: [facility] Address: [address] [address] Performed By: #### 2 4321-2 ####[facility]ENTERIA [id number] [address] [place] CBC panel Auto (Bld)on 09-24 Erythrocyte distribution width (RBC) [Ratio] 13.5 % Normal 11.5-15.0 [facility] Comment on above: Order Comment: Speci men Type: BLOOD SPECIMENOrdering Facility: [facility] Address: [address] [address] Performed By: #### 5 8410-2 ####[facility] CENTERIA [id number] [address] [place] Hematocrit (Bld) [Volume fraction] 40.1 % Normal 39.0-51.0 [facility] Comment on above: Order Comment: Speci men Type: BLOOD SPECIMENOrdering Facility: [facility] Address: [address] [address] Performed By: #### 5 8410-2 ####[facility] CENTERIA [id number] [address] [place] Hemoglobin (Bld) [Mass/Vol] 13.5 g/dL Normal 13.0-17.0 [facility] Comment on above: Order Comment: Speci men Type: BLOOD SPECIMENOrdering Facility: [facility] Address: [address] [address] Performed By: #### 5 8410-2 ####[facility] CENTERIA [id number] [address] [place] MCH (RBC) [Entitic mass] 28.7 pg Normal 26.0-34.0 [facility] Comment on above: Order Comment: Speci men Type: BLOOD SPECIMENOrdering Facility: [facility] Address: [address] [address] Performed By: #### 5 8410-2 ####[facility] LABORATORYIA [id number] [place] [address] [place] MCHC (RBC) [Mass/Vol] 33.7 g/dL Normal 30.5-36.0 [facility] Comment on above: Order Comment: Speci men Type: BLOOD SPECIMENOrdering Facility: [facility] Address: [address] [place] [address] Performed By: #### 5 8410-2 ####[facility] LABORATORYIA [id number] [address] [id number] [place] MCV (RBC) [Entitic vol] 85.3 fL Normal 80.0-100.0 [facility] Comment on above: Order Comment: Speci men Type: BLOOD SPECIMENOrdering Facility: [facility] Address: [address] [place] [address] Performed By: #### 5 8410-2 ####[facility] [id number] [place] [address] [place] Nucleated RBC (Bld) [#/Vol] 10*3/uL Normal <0.01 [facility] Comment on above: Order Comment: Speci men Type: BLOOD SPECIMENOrdering Facility: [facility] Address: [address] [place] [address] Performed By: #### 5 8410-2 ####[facility] [id number] [place] [address] [place] Platelet mean volume (Bld) [Entitic vol] 10.2 fL Normal 9.0-12.7 [facility] Comment on above: Order Comment: Speci men Type: BLOOD SPECIMENOrdering Facility: [facility] Address: [address] [place] [address] Performed By: #### 5 8410-2 ####[facility] [id number] [place] [address] [place] Platelets (Bld) [#/Vol] 186 10*3/uL Normal 150-400 [facility] Comment on above: Order Comment: Speci men Type: BLOOD SPECIMENOrdering Facility: [facility] Address: [address] Performed By: #### 5 8410-2 ####[facility]ORATORYCLIA [id number] [address] [id number] [facility] RBC (Bld) [#/Vol] 4.70 10*6/uL Normal 4.20-6.00 [facility] Comment on above: Order Comment: Speci men Type: BLOOD SPECIMENOrdering Facility: [facility] Address: [address] [address] Performed By: #### 5 8410-2 ####[facility] LABORATORYIA [id number] [address] [address] [facility] WBC (Bld) [#/Vol] 11.78 10*3/uL High 3.70-11.00 [facility] Comment on above: Order Comment: Speci men Type: BLOOD SPECIMENOrdering Facility: [facility] Address: [address] [address] Performed By: #### 5 8410-2 ####[facility] CENTERIA [id number] [address] [id number] [facility] CNDSon 09-24-2022 CNDS HNO ID: [id number] Author: Itzel Berry PA-C Service: Orthopaedic Surgery Author Type: Physician Salvage Grinder Type: Discharge Summary Filed: 09/24/2022 11:49 AM [...] Dept Phone 10/09/2022 8:00 AM JACOB SINGLETON [facility] [phone] 11/06/2022 2:15 PM ROBERT KAHN [facility] [phone] Plan discussed with attending Orthopaedic surgeon Dr. Kahn , will addend as needed. I spent 35 minutes in the visit, with more than 50% of the total aapi-gc-qkfu time of the visit in counseling / coordination of care. SIGNATURE: Itzel Berry PA-C PATIENT NAME: Guy Holloway DATE: 09/24/22 TIME: 9:21 AM Normal [facility] THERAPY NTon 09-24-2022 THERAPY NT HNO ID: [id number] Author: Talia Lee, PT, DPT Service: Physical Therapy Author Type: Physical Therapist Type: Therapy (PT/OT/Speech/Resp) Filed: 09/24/2022 12:29 PM Note Text: Physical Therapy Treatment SERVICE DATE: 09/24/2022 SERVICE TIME: 1200 to 1223 ROOM: [id number] Recommended Discharge Disposition: Home PT Recommended Discharge [...] Past Medical History: Obesity, OA, L KARTHIK 2015, DVT, HTN Response to Therapy Interventions: Good [...] 2 children living near by to assist humanities 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 Normal [facility] THERAPY NT HNO ID: [id number] Author: Cheyanne Morillo OT/Pool Service: Occupational Therapy Author Type: Occupational Therapist Type: Therapy (PT/OT/Speech/Resp) Filed: 09/24/2022 10:44 AM Note Text: Occupational Therapy Evaluation SERVICE DATE: 09/24/2022 SERVICE TIME: 1007 to 1030 ROOM: [place] [address] Recommended Discharge Disposition: Home OT Recommended Discharge [...] Past Medical History: Obesity, OA, L KARTHIK 2015, DVT, HTN Response to Therapy Interventions: Good [...] 2 children living near by to assist humanities department chair Entry To Home: Stairs;Without Rail Number Of [...] 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 [facility] THERAPY NT HNO ID: [id number] Author: Talia Lee, PT, DPT Service: Physical Therapy Author Type: Physical Therapist Type: Therapy (PT/OT/Speech/Resp) Filed: 09/24/2022 9:36 AM Note Text: Physical Therapy Treatment SERVICE DATE: 09/24/2022 SERVICE TIME: 838 to 925 ROOM: [place] [address] Recommended Discharge Disposition: Home PT Recommended Discharge [...] Past Medical History: Obesity, OA, L KARTHIK 2015, DVT, HTN Response to Therapy Interventions: Improved [...] 2 children living near by to assist humanities department chair Entry To Home: Stairs;Without Rail Number Of [...] 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 Normal [facility] ANES POSTPROC EVALon 022 ANES POSTPROC EVAL HNO ID: [id number] Author: Aniya Lamb MD Service: Anesthesiology Author Type: Anesthesiologist Type: Anesthesia Postprocedure Evaluation Filed: 09/23/2022 3:39 PM Note Text: POST ANESTHESIA EVALUATION NOTE : 1965 Procedure Summary Date: 09/23/22 Room / Location: OR05 / AV OR Anesthesia Start: 842 Anesthesia Stop: 1122 [...] September 23, 2022 TIME: 3:39 PM CSN: [id number] [facility] ANES PRE-OPon 09-23-2022 ANES PRE-OP HNO ID: [id number] Author: Aniya Lamb MD Service: Anesthesiology Author Type: Anesthesiologist Type: Anesthesia Preprocedure Evaluation Filed: 09/23/2022 7:29 AM Note Text: ANESTHESIOLOGY DAY OF SURGERY NOTE : 1965 Procedure Information Date/Time: 09/23/22829 Procedure: ARTHROPLASTY HIP BIOMET TAPER LOC (Right: Hip) Location: OR05 / AV OR Surgeons: Robert Kahn [...] September 23, 2022 TIME: 6:38 AM CSN: [id number] [facility] OPERATIVE NOon 09-23-2022 OPERATIVE NO HNO ID: [id number] Author: Robert Kahn MD Service: Orthopaedic Surgery Author Type: Physician Type: Operative Report Filed: 09/23/2022 10:26 AM Note Text: OPERATIVE/PROCEDURE REPORT LOG ID: [id number] SURGERY/PROCEDURE DATE: 09/23/2022 INCISION/PROCEDURE START TIME: 9:25 AM INCISION CLOSE/PROCEDURE END TIME: 1045 SURGEON(S)/PROCEDURALI ST(S) AND CUPOLA CHARGER(S): Surgeon(s) and Role: * Robert Kahn MD - Primary Physician Salvage Grinder: Abelardo Tierney PA-C SURGERY/PROCEDURE(S): Right total hip [...] IN SURGERY/PROCEDURE: No qualified resident/fellow was available. [facility] PAC was 1st assist. I performed the operation with assistance. No qualified resident was available. A speech and language assistant was necessary for safe patient positioning, protection of tissue, retraction, and suture management. The phlebotomist medical lab assistant provided final wound closure, bandage application, and transfer of the patient to the recovery room. SIGNATURE: Robert Kahn MD PATIENT NAME: Guy Holloway DATE: September 23, 2022 TIME: 10:22 AM Normal [facility] SURGICAL PATHOLOGYon CASE REPORT Normal [facility] Comment on above: Order Comment: Speci men Type: SPECIMEN FROM BONEOrdering Facility: [facility] Address: [address] [place] [address] Result Comment: Surg [facility] Pathology Report Case: [id number] Authorizing Provider: Robert Kahn MD Collected: 09/23/2022 09:28 AM Ordering Location: [facility] Surgery Received: 09/23/2022 10:47 AM Pathologist: Danie Irby MD Specimen: FEMORAL HEAD RIGHT, right femoral head Performed By: #### S ####[facility] [id number] [facility] [id number] [place] [address] [place] CLINICAL HISTORY Normal [facility] Comment on above: Order Comment: Speci men Type: SPECIMEN FROM BONEOrdering Facility: [facility] Address: [address] [address] Result Comment: Femo ral head, right, arthroplasty: -Pre-op diagnosis: Primary osteoarthritis of right hip [M16.11] Performed By: #### S ####[facility] [id number] [address] FINAL DIAGNOSIS Normal [facility] Comment on above: Order Comment: Speci men Type: SPECIMEN FROM BONEOrdering Facility: [facility] Address: [address] [place] [address] Result Comment: Righ t femoral head, arthroplasty: - Degenerative joint disease with subchondral cyst formation. - Mild chronic synovitis, nonspecific. Performed By: #### S ####[facility] [id number] [address] FINAL PERFORMING LAB Normal [facility] Comment on above: Order Comment: Speci men Type: SPECIMEN FROM BONEOrdering Facility: [facility] Address: [address] [place] [address] Result Comment: Diag nostic interpretation performed at [facility], [address] [address] CLIA# [id number] Oil And Gas Superintendent: Augie Cruz M.D. Performed By: #### S ####[facility] [id number] [address] GROSS DESCRIPTION Normal [facility] spital Comment on above: Order Comment: Speci rodri Type: SPECIMEN FROM BONEOrdering Facility: [facility] Address: [address] [place] [address] Result Comment: A. F EMORAL HEAD RIGHT [...] diameter. No grossly necrotic bone is identified. Duplicating Machine Servicer sections are submitted, as follows: A1: Articulating surface, following decalcification A2: Non-articulating, peripheral surface, following decalcification A3: Soft tissue from femoral neck A4: Subchondral cysts, following decalcification AKA September 23, 2022 4:02 PM Gross examination performed at [facility], [facility] [place] [address] Performed By: #### S ####[facility] [facility] LABCLIA [id number] [address] THERAPY NTon 09-23-2022 THERAPY NT HNO ID: [id number] Author: Talia Lee, PT, DPT Service: Physical Therapy Author Type: Physical Therapist Type: Therapy (PT/OT/Speech/Resp) Filed: 09/23/2022 5:15 PM Note Text: Physical Therapy Evaluation SERVICE DATE: 09/23/2022 SERVICE TIME: 1625 to 1706 ROOM: [place] [address] Recommended Discharge Disposition: Home PT Recommended Discharge [...] 2 children living near by to assist humanities department chair Entry To Home: Stairs;Without Rail Number Of [...] 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 [facility] XR PELVIS 1V APon 09-23-2022 XR [...] IMPRESSION: Status post hip arthroplasty, normal alignment Meter Repairer Helper: CARLOS AB Transcribe Date/Time: Sep 23 2022 12:17P Dictated by : MARILUZ TERRY MD This examination was interpreted and the report reviewed and electronically signed by: MARILUZ TERRY MD on Sep 23 2022 12:17PM EST [id number] [facility] Marta 09-10-2022 CNPN Telephone (ORAVON) MANUELAGUY ([id number]) 1965 M Date Time Provider Department 09/10/22 [...] off of 3 months. Letter faxed to [employer]-patient's employer. Allergies As of Date: 09/10/2022 (No Known Allergies) Date Reviewed: 09/09/2022 Reviewed by: Mary Kate Welsh APRN.SUPERVISOR ELECTRONIC TESTING - Fully Assessed Reason for Visit: Patient Question [3307] Prescriptions as of 09/10/2022 - ELIQUIS 5 [...] Status:Closed by SANDRA ELMORE on 09/10/22 Normal [facility] CBC W Auto Differential pane l (Bld)on 09-09-2022 Basophils (Bld) [#/Vol] 0.05 10*3/uL Normal <0.11 [facility] Comment on above: Order Comment: Speci men Type: BLOOD SPECIMENOrdering Facility: [facility] Address: [address] [place] [address] Performed By: #### 5 7021-8 ####URI [facility]CL[facility] [id number] [place] [address] [place] Basophils/100 WBC (Bld) 0.6 % Normal [facility] Comment on above: Order Comment: Speci men Type: BLOOD SPECIMENOrdering Facility: [facility] Address: [address] [place] [address] Performed By: #### 5 7021-8 ####UIR [facility] LABCLIA [id number] [place] [address] [place] Differential cell count method Nom (Bld) Auto Normal [facility] Comment on above: Order Comment: Speci men Type: BLOOD SPECIMENOrdering Facility: [facility] Address: [address] [place] [address] Performed By: #### 5 7021-8 ####[facility]CLIA [id number] [place] [address] [place] Eosinophils (Bld) [#/Vol] 0.16 10*3/uL Normal <0.46 [facility] Comment on above: Order Comment: Speci men Type: BLOOD SPECIMENOrdering Facility: [facility] Address: [address] [place] [address] Performed By: #### 5 7021-8 ####[facility]CLIA [id number] [place] [address] [place] Eosinophils/100 WBC (Bld) 2.0 % Normal [facility] Comment on above: Order Comment: Speci men Type: BLOOD SPECIMENOrdering Facility: [facility] Address: [address] [address] Performed By: #### 5 7021-8 ####[facility] LABIA [id number] [place] [address] [place] Erythrocyte distribution width (RBC) [Ratio] 13.7 % Normal 11.5-15.0 [facility] Comment on above: Order Comment: Speci men Type: BLOOD SPECIMENOrdering Facility: [facility] Address: [address] [place] [address] Performed By: #### 5 7021-8 ####URI [facility] LABIA [id number] [place] [address] [place] Hematocrit (Bld) [Volume fraction] 47.2 % Normal 39.0-51.0 [facility] Comment on above: Order Comment: Speci men Type: BLOOD SPECIMENOrdering Facility: [facility] Address: [address] [place] [address] Performed By: #### 5 7021-8 ####URI [facility] LABIA [id number] [place] [address] [place] Hemoglobin (Bld) [Mass/Vol] 16.3 g/dL Normal 13.0-17.0 [facility] Comment on above: Order Comment: Speci men Type: BLOOD SPECIMENOrdering Facility: [facility] Address: [address] [place] [address] Performed By: #### 5 7021-8 ####[facility] LABIA [id number] [place] [address] [place] Immature granulocytes (Bld) [#/Vol] 0.04 10*3/uL Normal <0.10 [facility] Comment on above: Order Comment: Speci men Type: BLOOD SPECIMENOrdering Facility: [facility] Address: [address] [address] Performed By: #### 5 7021-8 ####[facility] LABCLIA [id number] [place] [address] [place] Immature granulocytes/100 WBC (Bld) 0.5 % Normal [facility] Comment on above: Order Comment: Speci men Type: BLOOD SPECIMENOrdering Facility: [facility] Address: [address] [address] Performed By: #### 5 7021-8 ####[facility]CLIA [id number] [place] [address] [place] Lymphocytes (Bld) [#/Vol] 2.15 10*3/uL Normal 1.00-4.00 [facility] Comment on above: Order Comment: Speci men Type: BLOOD SPECIMENOrdering Facility: [facility] Address: [address] [address] Performed By: #### 5 7021-8 ####[facility] LABIA [id number] [place] [address] [place] Lymphocytes/100 WBC (Bld) 27.1 % Normal [facility] Comment on above: Order Comment: Speci men Type: BLOOD SPECIMENOrdering Facility: [facility] Address: [address] [address] Performed By: #### 5 7021-8 ####URI [facility] LABIA [id number] [place] [address] [place] MCH (RBC) [Entitic mass] 29.1 pg Normal 26.0-34.0 [facility] Comment on above: Order Comment: Speci men Type: BLOOD SPECIMENOrdering Facility: [facility] Address: [address] [address] Performed By: #### 5 7021-8 ####URI [facility] LABCLIA [id number] [place] [address] [place] MCHC (RBC) [Mass/Vol] 34.5 g/dL Normal 30.5-36.0 [facility] Comment on above: Order Comment: Speci men Type: BLOOD SPECIMENOrdering Facility: [facility] Address: [address] [place] [address] Performed By: #### 5 7021-8 ####URI [facility]CLIA [id number] [place] [address] [place] MCV (RBC) [Entitic vol] 84.1 fL Normal 80.0-100.0 [facility] Comment on above: Order Comment: Speci men Type: BLOOD SPECIMENOrdering Facility: [facility] Address: [address] [place] [address] Performed By: #### 5 7021-8 ####URI [facility] LABCLIA [id number] [place] [address] [place] Monocytes (Bld) [#/Vol] 0.78 10*3/uL Normal <0.87 [facility] Comment on above: Order Comment: Speci men Type: BLOOD SPECIMENOrdering Facility: [facility] Address: [address] [place] [address] Performed By: #### 5 7021-8 ####[facility]CLIA [id number] [place] [address] [place] Monocytes/100 WBC (Bld) 9.8 % Normal [facility] Comment on above: Order Comment: Speci men Type: BLOOD SPECIMENOrdering Facility: [facility] Address: [address] [place] [address] Performed By: #### 5 7021-8 ####[facility]CLIA [id number] [place] [address] [place] Neutrophils (Bld) [#/Vol] 4.76 10*3/uL Normal 1.45-7.50 [facility] Comment on above: Order Comment: Speci men Type: BLOOD SPECIMENOrdering Facility: [facility] Address: [address] [place] [address] Performed By: #### 5 7021-8 ####URI [facility] LABCLIA [id number] [place] [address] [place] Neutrophils/100 WBC (Bld) 60.0 % Normal [facility] Comment on above: Order Comment: Speci men Type: BLOOD SPECIMENOrdering Facility: [facility] Address: [address] [place] [address] Performed By: #### 5 7021-8 ####URI [facility] LABCLIA [id number] [place] [address] [place] Nucleated RBC (Bld) [#/Vol] 10*3/uL Normal <0.01 [facility] Comment on above: Order Comment: Speci men Type: BLOOD SPECIMENOrdering Facility: [facility] Address: [address] [place] [address] Performed By: #### 5 7021-8 ####URI [facility] LABIA [id number] [place] [address] [place] Nucleated RBC/100 WBC (Bld) [Ratio] 0.0 /100 WBC Normal [facility] Comment on above: Order Comment: Speci men Type: BLOOD SPECIMENOrdering Facility: [facility] Address: [address] [place] [address] Performed By: #### 5 7021-8 ####URI [facility] LABIA [id number] [place] [address] [place] Platelet mean volume (Bld) [Entitic vol] 10.1 fL Normal 9.0-12.7 [facility] Comment on above: Order Comment: Speci men Type: BLOOD SPECIMENOrdering Facility: [facility] Address: [address] [place] [address] Performed By: #### 5 7021-8 ####[facility]CLIA [id number] [place] [address] [place] Platelets (Bld) [#/Vol] 197 10*3/uL Normal 150-400 [facility] Comment on above: Order Comment: Speci men Type: BLOOD SPECIMENOrdering Facility: [facility] Address: [address] [place] [address] Performed By: #### 5 7021-8 ####[facility] LABIA [id number] [place] [address] [place] RBC (Bld) [#/Vol] 5.61 10*6/uL Normal 4.20-6.00 [facility] Comment on above: Order Comment: Speci men Type: BLOOD SPECIMENOrdering Facility: [facility] Address: [address] [place] [address] Performed By: #### 5 7021-8 ####[facility] LABIA [id number] [place] [address] [place] WBC (Bld) [#/Vol] 7.94 10*3/uL Normal 3.70-11.00 [facility] Comment on above: Order Comment: Speci men Type: BLOOD SPECIMENOrdering Facility: [facility] Address: [address] [place] [address] Performed By: #### 5 7021-8 ####[facility] LABIA [id number] [place] [address] [facility] [place] Comprehensive metabolic 2000 panelon 09-09-2022 Albumin [Mass/Vol] 4.4 g/dL Normal 3.9-4.9 [facility] Comment on above: Order Comment: Speci men Type: BLOOD SPECIMENOrdering Facility: [facility] Address: [address] [place] [address] Performed By: #### 2 4323-8, 30981-8 ####URI [facility] LABCLIA [id number] [place] [address] [place] ALP [Catalytic activity/Vol] 80 U/L Normal 38-113 [facility] Comment on above: Order Comment: Speci men Type: BLOOD SPECIMENOrdering Facility: [facility] Address: [address] [address] Performed By: #### 2 4323-8, 98720-0 ####URI [facility] LABCLIA [id number] [place] [address] [place] ALT [Catalytic activity/Vol] 25 U/L Normal 10-54 [facility] Comment on above: Order Comment: Speci men Type: BLOOD SPECIMENOrdering Facility: [facility] Address: [address] [place] [address] Performed By: #### 2 4323-8, 19182-2 ####URI [facility] LABCLIA [id number] [place] [address] [place] Anion gap [Moles/Vol] 11 mmol/L Normal 9-18 [facility] Comment on above: Order Comment: Speci men Type: BLOOD SPECIMENOrdering Facility: [facility] Address: [address] [place] [address] Performed By: #### 2 4323-8, 69775-2 ####URI [facility] LABCLIA [id number] [place] [address] [place] AST [Catalytic activity/Vol] 22 U/L Normal 14-40 [facility] Comment on above: Order Comment: Speci men Type: BLOOD SPECIMENOrdering Facility: [facility] Address: [address] [address] Performed By: #### 2 4323-8, 66071-6 ####[facility] LABCLIA [id number] [place] [address] [place] Bilirubin [Mass/Vol] 0.9 mg/dL Normal 0.2-1.3 [facility] Comment on above: Order Comment: Speci men Type: BLOOD SPECIMENOrdering Facility: [facility] Address: [address] [place] [address] Performed By: #### 2 4323-8, 84694-4 ####[facility] LABCLIA [id number] [place] [address] [place] Calcium [Mass/Vol] 9.8 mg/dL Normal 8.5-10.2 [facility] Comment on above: Order Comment: Speci men Type: BLOOD SPECIMENOrdering Facility: [facility] Address: [address] [place] [address] Performed By: #### 2 4323-8, 69215-8 ####RUI [facility] LABCLIA [id number] [place] [address] [place] Chloride [Moles/Vol] 101 mmol/L Normal 97-105 [facility] Comment on above: Order Comment: Speci men Type: BLOOD SPECIMENOrdering Facility: [facility] Address: [address] [place] [address] Performed By: #### 2 4323-8, 73795-6 ####[facility] LABCLIA [id number] [place] [address] [place] CO2 [Moles/Vol] 27 mmol/L Normal 22-30 [facility] Comment on above: Order Comment: Speci men Type: BLOOD SPECIMENOrdering Facility: [facility] Address: [address] [place] [address] Performed By: #### 2 4323-8, 15968-7 ####[facility] LABCLIA [id number] [place] [address] [place] Creatinine [Mass/Vol] 1.09 mg/dL Normal 0.73-1.22 [facility] Comment on above: Order Comment: Ileana mace Type: BLOOD SPECIMENOrdering Facility: [facility] Address: [address] [place] [address] Performed By: #### 2 4323-8, 47176-2 ####[facility] LABCLIA [id number] [place] [address] [place] ESTIMATED GLOMERULAR FILTRATION RATE 78 mL/min/1.73m??? Normal >=60 [facility] Comment on above: Order Comment: Ileana mace Type: BLOOD SPECIMENOrdering Facility: [facility] Address: [address] [place] [address] Result Comment: Judy mated Glomerular Filtration Rate [...] actual GFR. Performed By: #### 2 4323-8, 32508-2 ####[facility] LABCLIA [id number] [place] [address] [place] Glucose [Mass/Vol] 102 mg/dL High 74-99 [facility] Comment on above: Order Comment: Ileana mace Type: BLOOD SPECIMENOrdering Facility: [facility] Address: [address] [place], [place] [id number] Result Comment: The [place] Diabetes Association (ADA) provides guidance for cutoff [...] Standards of Medical Care in Diabetes 2016, [place] [employer]. Diabetes Care. 2016.39(Suppl 1). Performed By: #### 2 4323-8, 64991-2 ####[facility] LABCLIA [id number] [place] [address] [place] Potassium [Moles/Vol] 3.8 mmol/L Normal 3.7-5.1 [facility] Comment on above: Order Comment: Speci men Type: BLOOD SPECIMENOrdering Facility: [facility] Address: [address] [place] [address] Performed By: #### 2 4323-8, 46472-1 ####URI [facility] LABCLIA [id number] [place] [address] [place] Protein [Mass/Vol] 7.0 g/dL Normal 6.3-8.0 [facility] Comment on above: Order Comment: Speci men Type: BLOOD SPECIMENOrdering Facility: [facility] Address: [address] [place] [address] Performed By: #### 2 4323-8, 29284-0 ####URI [facility] LABCLIA [id number] [place] [address] [place] Sodium [Moles/Vol] 139 mmol/L Normal 136-144 [facility] Comment on above: Order Comment: Speci men Type: BLOOD SPECIMENOrdering Facility: [facility] Address: [address] [address] Performed By: #### 2 4323-8, 29221-2 ####[facility] LABCLIA [id number] [place] [address] [place] Urea nitrogen [Mass/Vol] 19 mg/dL Normal 9-24 [facility] Comment on above: Order Comment: Speci men Type: BLOOD SPECIMENOrdering Facility: [facility] Address: [address] [id number] Performed By: #### 2 4323-8, 84571-8 ####URI [facility] LABCLIA [id number] [place] [address] [place] Ferritin SerPl-mCncon 2021 Ferritin [Mass/Vol] 435.0 ng/mL Normal 30.3-565.7 [facility] Comment on above: Order Comment: Speci men Type: BLOOD SPECIMENOrdering Facility: [facility] Address: [address] [id number] Performed By: #### 2 276-4 ####[facility] [id number] [address] [place] HISTORY PHYSICALon HISTORY PHYSICAL HNO ID: [id number] Author: Mary Kate Welsh APRN.SUPERVISOR ELECTRONIC TESTING Service: ? Author Type: Nurse Practitioner Type: [...] fevers. Neurological: No history of TIA's, stroke, LOG DECKMAN tumor, impaired sensorium, hemiplegia, paraplegia or quadraplegia. No neurological symptoms or problems. Respiratory: No history of current cough or dyspnea, or pneumonia in the past 6 weeks. No history of respiratory/pulmonary symptoms or problems. Cardiovascular: Positive for: anticoagulation therapy, DVT/PE and hypertension Negative for: CAD, chest pain, hyperlipidemia, recent [place] and murmur/valvular heart disease. GI: No history [...] Prior to Admission medications as of 09/09/22 8909 Medication Sig Last Dose Taking ELIQUIS 5 [...] no joint swelling or clubbing. 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 Neurological: normal cognition a (more content not included)... Normal [facility] Iron and Iron binding capaci ty panelon 09-09-2022 Iron [Mass/Vol] 74 ug/dL Normal 41-186 [facility] Comment on above: Order Comment: Speci men Type: BLOOD SPECIMENOrdering Facility: [facility] Address: [address] [place] [address] Performed By: #### 2 4323-8, 01070-9 ####URI [facility] LABCLIA [id number] [place] [address] [place] Iron binding capacity [Mass/Vol] 341 ug/dL Normal 232-386 [facility] Comment on above: Order Comment: Speci men Type: BLOOD SPECIMENOrdering Facility: [facility] Address: [address] [address] Performed By: #### 2 4323-8, 57878-9 ####[facility] LABCLIA [id number] [address] [place] Iron/TIBC [Molar ratio] 21.7 % Normal 15.0-57.0 [facility] Comment on above: Order Comment: Speci men Type: BLOOD SPECIMENOrdering Facility: [facility] Address: [address] [place] [address] Performed By: #### 2 4323-8, 05766-9 ####[facility] LABCLIA [id number] [address] STATES OF [facility] TYPE AND SCREEN,30 DAYon ABO A Normal [facility] Comment on above: Order Comment: Speci men Type: BLOOD SPECIMENOrdering Facility: [facility] Address: [address] [place] [address] Performed By: #### T SCR30 ####CC [facility] BANKCLIA [id number] [place] [address] [place] HISTORICAL AB SCR STATUS Negative Normal [facility] Comment on above: Order Comment: Speci men Type: BLOOD SPECIMENOrdering Facility: [facility] Address: [address] [place] [address] Performed By: #### T SCR30 ####CC [facility] BANKCLIA [id number] [address] [place] Rh Nom (Bld) Positive Normal [facility] Comment on above: Order Comment: Speci men Type: BLOOD SPECIMENOrdering Facility: [facility] Address: [address] [place] [address] Performed By: #### T SCR30 ####CC [facility] BANKCLIA [id number] [place] [address] [place] CNPNon 09-08-2022 CNPN Telephone (LOPTRM) GUY HOLLOWAY ([id number]) 1965 M Date Time Provider Department 09/08/22 ROBERT KAHN During your visit today, we recorded the following information about you: Jania Santamaria 09/08/2022 3:30 PM Signed LVM for patient to call with the name and phone number of facility he would like to go to for outpatient PT. Talia Pascual 09/09/2022 11:55 AM Signed Patient returning call with PT information requested, [facility] [address] FAX:[phone] Jania Santamaria 09/16/2022 3:51 PM Signed Patient is scheduled at [facility] on 09/29 at 4:00 Allergies As of [...] Status:Closed by JANIA WILKINSON on 09/08/22 [facility]-01-2022 Albumin [Mass/Vol] 3.9 g/dL Normal 3.4-5.0 [facility] Comment on above: Performed By: #### C MP, ALB #### [facility] [address] [place] [address] Dr. Kaylen Tejeda CBC AUTO DIFFon 09-01-2022 BASO # 0.1 103/ul Normal 0.0-0.1 [facility] Comment on above: Performed By: #### C MP, ALB #### [facility] [address] [place] [address] Dr. Kaylen Tejeda Basophils/100 WBC (Bld) 0.8 % Normal 0.2-2.0 [facility] Comment on above: Performed By: #### C MP, ALB #### [facility] [address] [place] [address] Dr. Kaylen Tejeda EO # 0.2 103/ul Normal 0.0-0.7 [facility] Comment on above: Performed By: #### C MP, ALB #### [facility] [address] [place] [address] Dr. Kaylen Tejeda Eosinophils/100 WBC (Bld) 2.1 % Normal 0.9-7.0 [facility] Comment on above: Performed By: #### C MP, ALB #### [facility] [address] [place] [address] Dr. Kaylen Tejeda Erythrocyte distribution width (RBC) [Ratio] 13.9 % Normal 11.0-15.0 [facility] Comment on above: Performed By: #### C MP, ALB #### [facility] [address] [place] [address] Dr. Kaylen Tejeda Hematocrit (Bld) [Volume fraction] 44.8 % Normal 42.0-54.0 [facility] Comment on above: Performed By: #### C MP, ALB #### [facility] [address] [place] [address] Dr. Kaylen Tejeda Hemoglobin (Bld) [Mass/Vol] 15.3 g/dL Normal 14.0-18.0 [facility] Comment on above: Performed By: #### C MP, ALB #### [facility] [address] [place] [address] Dr. Kaylen Tejeda IG # 0.04 10e3/ul Critically high 0.00-0.03 [facility] Comment on above: Performed By: #### C MP, ALB #### [facility] [address] [place] [address] Dr. Kaylen Tejeda IG % 0.5 % Normal 0.0-0.5 [facility] Comment on above: Performed By: #### C MP, ALB #### [facility] [address] [place] [address] Dr. Kaylen Tejeda LYMPH # 2.5 103/ul Normal 1.2-3.8 [facility] Comment on above: Performed By: #### C MP, ALB #### [facility] [address] [place] [address] Dr. Kaylen Tejeda Lymphocytes/100 WBC (Bld) 29.1 % Normal 20.5-60.0 [facility] Comment on above: Performed By: #### C MP, ALB #### [facility] [address] [place] [address] Dr. Kaylen Tejeda MANUAL DIFF REQ NO Normal [facility] Comment on above: Performed By: #### C MP, ALB #### [facility] [address] [place] [address] Dr. Kaylen Tejeda MCH (RBC) [Entitic mass] 28.8 pg Normal 25.9-34.0 [facility] Comment on above: Performed By: #### C MP, ALB #### [facility] [address] [place] [address] Dr. Kaylen Tejeda MCHC (RBC) [Mass/Vol] 34.2 g/dL Normal 29.9-35.2 [facility] Comment on above: Performed By: #### C MP, ALB #### [facility] [facility] [address] [place] [address] Dr. Kaylen Tejeda MCV (RBC) [Entitic vol] 84.2 fL Normal 80.0-94.0 [facility] Comment on above: Performed By: #### C MP, ALB #### [facility] [address] [place] [address] Dr. Kaylen Tejeda MONO # 1.0 103/ul Critically high 0.3-0.8 [facility] Comment on above: Performed By: #### C MP, ALB #### [facility] [address] [place] [address] Dr. Kaylen Tejeda Monocytes/100 WBC (Bld) 11.2 % Normal 1.7-12.0 [facility] Comment on above: Performed By: #### C MP, ALB #### [facility] [address] [place] [address] Dr. Kaylen Tejeda NEUT # 4.9 103/ul Normal 1.4-6.5 [facility] Comment on above: Performed By: #### C MP, ALB #### [facility] [address] [place] [address] Dr. Kaylen Tejeda Neutrophils/100 WBC (Bld) 56.3 % Normal 43.0-75.0 [facility] Comment on above: Performed By: #### C MP, ALB #### [facility] [address] [place] [address] Dr. Kaylen Tejeda Platelet mean volume (Bld) [Entitic vol] 10.0 fL Normal 9.5-13.5 [facility] Comment on above: Performed By: #### C MP, ALB #### [facility] [address] [place] [address] Dr. Kaylen Tejeda PLT 199 103/ul Normal 150-450 [facility] Comment on above: Performed By: #### C MP, ALB #### [facility] [address] [place] [address] Dr. Kaylen Tejeda RBC 5.32 106/ul Normal 4.70-6.10 [facility] Comment on above: Performed By: #### C MP, ALB #### [facility] [address] [place] [address] Dr. Kaylen Tejeda WBC 8.7 103/ul Normal 4.0-11.0 [facility] Comment on above: Performed By: #### C MP, ALB #### [facility] [address] [place] [address] Dr. Kaylen Tejeda PROF 14(COMP METB)on 022 Albumin/Globulin [Mass ratio] 1.2 {ratio} Normal [facility] Comment on above: Performed By: #### C MP, ALB #### [facility] [address] [place] [address] Dr. Kaylen Tejeda ALP [Catalytic activity/Vol] 78 U/L Normal 46-116 [facility] Comment on above: Performed By: #### C MP, ALB #### [facility] [address] [place] [address] Dr. Kaylen Tejeda ALT [Catalytic activity/Vol] 34 U/L Normal 16-63 [facility] Comment on above: Performed By: #### C MP, ALB #### [facility] [address] [place] [address] Dr. Kaylen Tejeda Anion gap [Moles/Vol] 8.8 mmol/L Normal [facility] Comment on above: Performed By: #### C MP, ALB #### [facility] [address] [place] [address] Dr. Kaylen Tejeda AST [Catalytic activity/Vol] 9 U/L Critically low 15-37 [facility] Comment on above: Performed By: #### C MP, ALB #### [facility] [address] [place] [address] Dr. Kaylen Tejeda Bilirubin [Mass/Vol] 0.8 mg/dL Normal 0.2-1.0 [facility] Comment on above: Performed By: #### C MP, ALB #### [facility] [address] [place] [address] Dr. Kaylen Tejeda Calcium [Mass/Vol] 9.0 mg/dL Normal 8.5-10.1 [facility] Comment on above: Performed By: #### C MP, ALB #### [facility] [address] [place] [address] Dr. Kaylen Tejeda Chloride [Moles/Vol] 101 mmol/L Normal 98-107 [facility] Comment on above: Performed By: #### C MP, ALB #### [facility] [address] [place] [address] Dr. Kaylen Tejeda CO2 [Moles/Vol] 31.8 mmol/L Normal 21.0-32.0 [facility] Comment on above: Performed By: #### C MP, ALB #### [facility] [address] [address] [address] Kaylen Tejeda Creatinine [Mass/Vol] 1.12 mg/dL Normal 0.70-1.30 [facility] Comment on above: Performed By: #### C MP, ALB #### [facility] [address] [place] [address] Dr. Kaylen Tejeda EGFR-AF NORWEGIAN >60 Normal >=60 [facility] Comment on above: Performed By: #### C MP, ALB #### [facility] [address] [place] [address] Dr. Kaylen Tejeda EGFR-NON AF NORWEGIAN >60 Normal >=60 [facility] Comment on above: Performed By: #### C MP, ALB #### [facility] [address] [place] [address] Dr. Kaylen Tejeda Globulin (S) [Mass/Vol] 3.3 g/dL Normal [facility] Comment on above: Performed By: #### C MP, ALB #### [facility] [address] [place] [address] Dr. Kaylen Tejeda Glucose [Mass/Vol] 97 mg/dL Normal 74-106 [facility] Comment on above: Performed By: #### C MP, ALB #### [facility] [address] [place] [address] Dr. Kaylen Tejeda Potassium [Moles/Vol] 3.6 mmol/L Normal 3.5-5.1 [facility] Comment on above: Performed By: #### C MP, ALB #### [facility] [address] [place] [address] Dr. Kaylen Tejeda Protein [Mass/Vol] 7.2 g/dL Normal 6.4-8.2 [facility] Comment on above: Performed By: #### C MP, ALB #### [facility] [address] [place] [address] Dr. Kaylen Tejeda Sodium [Moles/Vol] 138 mmol/L Normal 136-145 [facility] Comment on above: Performed By: #### C MP, ALB #### [facility] [address] [place] [address] Dr. Kaylen Tejeda Urea nitrogen [Mass/Vol] 22.0 mg/dL Critically high 7.0-18.0 [facility] Comment on above: Performed By: #### C MP, ALB #### [facility] [address] [place] [address] Dr. Kaylen Tejeda Urea nitrogen/Creatinine [Mass ratio] 19.6 mg/mg Normal [facility] Comment on above: Performed By: #### C MP, ALB #### [facility] [address] [place] [address] Dr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 Please advise. Allergies As of Date: 08/24/2022 [...] Status:Closed by CONNIE BENNETT on 08/25/22 Normal [facility] Orders Onlyon 08-18-2022 Orders Only [id number] Guy Holloway 1965 [facility] Provider Department Center 08/18/2022 COURTNEY LAWSON [facility] Family History Problem Relation Age of Onset Deep vein thrombosis Mother's Sister Family Status - Relation Status Age at Mother's Sister Normal [facility] Office Visiton 08-12-2022 Follow-up visit [id number] Guy Holloway 1965 Provider Department Center 08/12/2022 [facility] LAW[facility] Problem Relation Age of Onset Deep vein thrombosis Mother's Sister Family Status - Relation Status Age at Mother's Sister Level of Service:09570 [place] OFFICE/OUTPATIENT NEW MODERATE MDM 45-59 MINUTES Reason for Visit and Comments: Pre-op Exam [706986] Hypertension [917217] Pulmonary embolism [Other] Normal [facility] CNOVon 07-30-2022 [facility]Y HO[facility] ([id number]) 1965 Date Time Provider Department 07/30/22 9:30 AM ROBERT KAHN During your visit today, we recorded the following information about you: Weight Height 136.1 kg 1.854 m Robert Kahn MD 07/30/2022 12:19 PM Signed CONSULT ORTHOPAEDIC: HIP PRIMARY CARE PHYSICIAN: Danielle Hernandez MD, MD REFERRING PROVIDER: Kushal Christian [id number] [facility] [id number] ASSESSMENT AND PLAN: Impression: Right Hip Severe [...] activities which include walking 2 blocks, doing personal care 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 Normal [facility] - Microbiology an d Antimicrobial susceptibilityon 07-30-2022 S. aureus and MRSA panel RANDALL+probe (Nose) Negative Negative [facility] STAPH AUREUS PCRon S. aureus and MRSA panel RANDALL+probe (Nose) Normal Negative [facility] Comment on above: Order Comment: Speci men Type: SWAB OF INTERNAL NOSEOrdering Facility: [facility] Address: [address] [place] [address] Result Comment: Nega tive for Staphylococcus aureus by PCR. Negative for MRSA by PCR Performed By: #### S APCR ####[facility] [id number] [facility] [id number] [facility] CNOVon 07-20-2022 CNOV Office Visit ([facility] ) GUY HOLLOWAY ([id number]) 1965 M Date Time Provider Department 07/20/22 [...] [Z96.642] Order(s):XR HIP GENERAL 3V PELV/AP/LAT RIGHT [[id number]] Order #: [id number] FUTURE Prescriptions as of 07/23/2022 - lisinopril [...] Status:Closed by KUSHAL CHRISTIAN II on 07/23/22 Normal [facility] XR HIP 3V PELV+ AP/LAT RTon 07-20-2022 [...] are preserved. IMPRESSION: SEVERE RIGHT HIP OSTEOARTHRITIS. Meter Repairer Helper: RONNELL Transcribe Date/Time: Jul 20 2022 1:12P Dictated by : EMI ANDERSON MD This examination was interpreted and the report reviewed and electronically signed by: EMI ANDERSON MD on Jul 20 2022 1:21PM EST [id number] Normal [facility] XR Pelvis and Hip - right AP and Lateral frogon 07-20-2022 IMPRESSION: SEVERE RIGHT HIP OSTEOARTHRITIS. Meter Repairer Helper: PSCB Transcribe Date/Time: Jul 20 2022 1:12P [...] and RIGHT hip 3 views. Comparison is 09-17. Interval progression in severe osteoarthritis with complete loss of the joint space, osteophytes and subchondral cysts. There is flattening of the articular surface superiorly. Status post remote LEFT total hip arthroplasty with incomplete visualization of the noncemented femoral stem. Visualized portions without signs of complication or failure. Sacroiliac joints and symphysis are preserved. [facility] * * *Final Report* [...] and RIGHT hip 3 views. Comparison is 09-17. Interval progression in severe osteoarthritis with complete loss of the joint space, osteophytes and subchondral cysts. There is flattening of the articular surface superiorly. Status post remote LEFT total hip arthroplasty with incomplete visualization of the noncemented femoral stem. Visualized portions without signs of complication or failure. Sacroiliac joints and symphysis are preserved. IMPRESSION IMPRESSION: SEVERE RIGHT HIP OSTEOARTHRITIS. Meter Repairer Helper: RONNELL Transcribe Date/Time: Jul 20 2022 1:12P Dictated by : EMI ANDERSON MD This examination was interpreted and the report reviewed and electronically signed by: EMI ANDERSON MD on Jul 20 2022 1:21PM [facility] Radiology Study observation (narrative) [facility] XR Pelvis and Hip - right AP and Lateral frogOrdered By: Ccf Provider on 07-20-2022 [facility] LUMBAR SPINE 2 OR 3 VIEWSon 05-05-2022 LUMBAR SPINE 2 OR 3 VIEWS STUDY: LUMBAR SPINE 2 OR 3 VIEWS; 05/05/2022 1:41 pm INDICATION: PAIN. COMPARISON: None. ACCESSION NUMBER(S): [id number] ORDERING CLINICIAN: Shavon Espana TECHNIQUE: AP and [...] OF FINDINGS: IMPRESSION: DJD. Disc disease. Normal [facility] THORACIC SPINE 2 VIEWSon THORACIC SPINE 2 VIEWS STUDY: THORACIC SPINE 2 VIEWS; 05/05/2022 1:42 pm INDICATION: PAIN. COMPARISON: None. ACCESSION NUMBER(S): [id number] ORDERING CLINICIAN: Shavon Espana TECHNIQUE: AP and lateral upright images of the thoracic spine were obtained. FINDINGS: The alignment of spine is unremarkable. There is moderately severe degenerative change with vertebral body endplate spurring. There is no obvious fracture or bone destruction. COMPARISON OF FINDINGS: IMPRESSION: DJD. Normal [facility] PROF 14(COMP METB)on 022 Albumin [Mass/Vol] 3.5 g/dL Normal 3.4-5.0 [facility] Comment on above: Performed By: #### C MP #### [facility] [address] [place] [address] Dr. Kaylen Tejeda Albumin/Globulin [Mass ratio] 1.1 {ratio} Normal [facility] Comment on above: Performed By: #### C MP #### [facility] [address] [place] [address] Dr. Kaylen Tejeda ALP [Catalytic activity/Vol] 74 U/L Normal 46-116 [facility] Comment on above: Performed By: #### C MP #### [facility] [address] [place] [address] Dr. Kaylen Tejeda ALT [Catalytic activity/Vol] 40 U/L Normal 16-63 [facility] Comment on above: Performed By: #### C MP #### [facility] [address] [place] [address] Dr. Kaylen Tejeda Anion gap [Moles/Vol] 9.1 mmol/L Normal [facility] Comment on above: Performed By: #### C MP #### [facility] [address] [place] [address] Dr. Kaylen Tejeda AST [Catalytic activity/Vol] 20 U/L Normal 15-37 [facility] Comment on above: Performed By: #### C MP #### [facility] [address] [address] [address] Kaylen Tejeda Bilirubin [Mass/Vol] 0.7 mg/dL Normal 0.2-1.0 [facility] Comment on above: Performed By: #### C MP #### [facility] [address] [address] [address] Kaylen Tejeda Calcium [Mass/Vol] 8.5 mg/dL Normal 8.5-10.1 [facility] Comment on above: Performed By: #### C MP #### [facility] [address] [place] [address] Dr. Kaylen Tejeda Chloride [Moles/Vol] 107 mmol/L Normal 98-107 [facility] Comment on above: Performed By: #### C MP #### [facility] [address] [address] [address] Kaylen Tejeda CO2 [Moles/Vol] 27.9 mmol/L Normal 21.0-32.0 [facility] Comment on above: Performed By: #### C MP #### [facility] [address] [place] [address] Dr. Kaylen Tejeda Creatinine [Mass/Vol] 1.30 mg/dL Normal 0.70-1.30 [facility] Comment on above: Performed By: #### C MP #### [facility] [address] [address] [address] Kaylen Tejeda EGFR-AF NORWEGIAN >60 Normal >=60 [facility] Comment on above: Performed By: #### C MP #### [facility] [address] [address] [address] Kaylen Tejeda EGFR-NON AF NORWEGIAN 57 mL/min/1.73m2 Critically low >=60 [facility] Comment on above: Performed By: #### C MP #### [facility] [address] [place] [address] Dr. Kaylen Tejeda Globulin (S) [Mass/Vol] 3.1 g/dL Normal [facility] Comment on above: Performed By: #### C MP #### [facility] [address] [address] [address] Kaylen Tejeda Glucose [Mass/Vol] 124 mg/dL Critically high 74-[address] [facility] Comment on above: Performed By: #### C MP #### [facility] [address] [address] [address] Kaylen Tejeda Potassium [Moles/Vol] 4.0 mmol/L Normal 3.5-5.1 [facility] Comment on above: Performed By: #### C MP #### [facility] [address] [address] [address] Kaylen Tejeda Protein [Mass/Vol] 6.6 g/dL Normal 6.4-8.2 [facility] Comment on above: Performed By: #### C MP #### [facility] [address] [place] [address] Dr. Kaylen Tejeda Sodium [Moles/Vol] 140 mmol/L Normal 136-145 [facility] Comment on above: Performed By: #### C MP #### [facility] [address] [place] [address] Dr. Kaylen Tejeda Urea nitrogen [Mass/Vol] 22.0 mg/dL Critically high 7.0-18.0 [facility] Comment on above: Performed By: #### C MP #### [facility] [address] [place] [address] Dr. Kaylen Tejeda Urea nitrogen/Creatinine [Mass ratio] 16.9 mg/mg Normal [facility] Comment on above: Performed By: #### C MP #### [facility] [address] [address] [address] Kaylen Tejeda CARDIAC KENDAL ADMITon 022 CK [Catalytic activity/Vol] 446 U/L Critically high 39-308 [facility] Comment on above: Performed By: #### C MP, ALB #### [facility] [address] [place] [address] Dr. Kaylen Tejeda CK.MB [Mass/Vol] 5.05 ng/mL Critically high <=3.60 [facility] Comment on above: Performed By: #### C MP, ALB #### [facility] [address] [place] [address] Dr. Kaylen Tejeda HSTROP 8.4 pg/mL Normal 4.0-76.1 [facility] Comment on above: Result Comment: CUT- OFF POINTS HAVE BEEN ESTABLISHED BASED ON THE FOURTH UNIVERSAL DEFINITIONS OF MYOCARDIAL INFARCTION. THE UPPER REFERENCE LIMIT (URL) OF TROPONIN, DEFINED THE 99TH PERCENTILE OF cTnI DISTRIBUTION IN A REFERENCE POPULATION, HAS BEEN CONFIRMED THE DECISION THRESHOLD FOR [place] DIAGNOSIS. Performed By: #### C MP, ALB #### [facility] [address] [place] [address] Dr. Kaylen Tejeda ALY 110 ng/mL Critically high 16-96 [facility] Comment on above: Performed By: #### C MP, ALB #### [facility] [address] [place] [address] Dr. Kaylen Tejeda CBC AUTO DIFFon 03-24-2022 BASO # 0.1 103/ul Normal 0.0-0.1 [facility] Comment on above: Performed By: #### C BC #### [facility] [address] [place] [address] Dr. Kaylen Tejeda Basophils/100 WBC (Bld) 0.9 % Normal 0.2-2.0 [facility] Comment on above: Performed By: #### C BC #### [facility] [address] [place] [address] Dr. Kaylen Tejeda EO # 0.2 103/ul Normal 0.0-0.7 [facility] Comment on above: Performed By: #### C BC #### [facility] [address] [place] [address] Dr. Kaylen Tejeda Eosinophils/100 WBC (Bld) 2.2 % Normal 0.9-7.0 [facility] Comment on above: Performed By: #### C BC #### [facility] [address] [place] [address] Dr. Kaylen Tejeda Erythrocyte distribution width (RBC) [Ratio] 13.8 % Normal 11.0-15.0 [facility] Comment on above: Performed By: #### C BC #### [facility] [address] [place] [address] Dr. Kaylen Tejeda Hematocrit (Bld) [Volume fraction] 46.1 % Normal 42.0-54.0 [facility] Comment on above: Performed By: #### C BC #### [facility] [address] [place] [address] Dr. Kaylen Tejeda Hemoglobin (Bld) [Mass/Vol] 15.7 g/dL Normal 14.0-18.0 [facility] Comment on above: Performed By: #### C BC #### [facility] [address] [place] [address] Dr. Kaylen Tejeda IG # 0.05 10e3/ul Critically high 0.00-0.03 [facility] Comment on above: Performed By: #### C BC #### [facility] [address] [place] [address] Dr. Kaylen Tejeda IG % 0.6 % Critically high 0.0-0.5 [facility] Comment on above: Performed By: #### C BC #### [facility] [address] [place] [address] Dr. Kaylen Tejeda LYMPH # 2.6 103/ul Normal 1.2-3.8 [facility] Comment on above: Performed By: #### C BC #### [facility] [address] [place] [address] Dr. Kaylen Tejeda Lymphocytes/100 WBC (Bld) 30.4 % Normal 20.5-60.0 [facility] Comment on above: Performed By: #### C BC #### [facility] [address] [place] [address] Dr. Kaylen Tejeda MANUAL DIFF REQ NO Normal [facility] Comment on above: Performed By: #### C BC #### [facility] [address] [place] [address] Dr. Kaylen Tejeda MCH (RBC) [Entitic mass] 29.8 pg Normal 25.9-34.0 [facility] Comment on above: Performed By: #### C BC #### [facility] [address] [address] [address] Kaylen Tejeda MCHC (RBC) [Mass/Vol] 34.1 g/dL Normal 29.9-35.2 [facility] Comment on above: Performed By: #### C BC #### [facility] [address] [address] [address] Kaylen Tejeda MCV (RBC) [Entitic vol] 87.5 fL Normal 80.0-94.0 [facility] Comment on above: Performed By: #### C BC #### [facility] [address] [address] [address] Kaylen Tejeda MONO # 0.9 103/ul Critically high 0.3-0.8 [facility] Comment on above: Performed By: #### C BC #### [facility] [address] [address] [address] Kaylen Tejeda Monocytes/100 WBC (Bld) 10.3 % Normal 1.7-12.0 [facility] Comment on above: Performed By: #### C BC #### [facility] [address] [address] [address] Kaylen Tejeda NEUT # 4.8 103/ul Normal 1.4-6.5 [facility] Comment on above: Performed By: #### C BC #### [facility] [address] [address] [address] Kaylen Tejeda Neutrophils/100 WBC (Bld) 55.6 % Normal 43.0-75.0 [facility] Comment on above: Performed By: #### C BC #### [facility] [address] [address] [address] Kaylen Tejeda Platelet mean volume (Bld) [Entitic vol] 10.2 fL Normal 9.5-13.5 [facility] Comment on above: Performed By: #### C BC #### [facility] [address] [address] [address] Kaylen Tejeda PLT 206 103/ul Normal 150-450 [facility] Comment on above: Performed By: #### C BC #### [facility] [address] [place], [place] [address] Dr. Kaylen Tejeda RBC 5.27 106/ul Normal 4.70-6.10 [facility] Comment on above: Performed By: #### C BC #### [facility] [address] [place], [place] [address] Dr. Kaylen Tejeda WBC 8.6 103/ul Normal 4.0-11.0 [facility] Comment on above: Performed By: #### C BC #### [facility] [address] [place], [place] [address] ABD/PELVIS WO CONon 03-24 CT ABD/PELVIS WO CON EXAMINATION: CT ABD/PELVIS WO CON, 03/24/2022 6:50 PM MDT HISTORY: CALCULUS OF KIDNEY COMPARISON: None. TECHNIQUE: CT scan of the abdomen and pelvis was performed without IV contrast. CT dose reduction technique was used, including Automated Exposure Control. FINDINGS: Remediation Project Engineer: No pertinent findings, which are not already [...] LIZ MONTILLA Date: 2022-03-24 21:57 Normal The [facility] BNPon 02-13-2022 Natriuretic peptide B (Bld) [Mass/Vol] 83.0 pg/mL Normal <=900.0 [facility] Comment on above: Performed By: #### B RESEARCH BIOLOGIST, CMP, T7, TSH #### [facility] [address] [place] [address] Dr. Kaylen Tejeda CBC AUTO DIFFon 02-13-2022 BASO # 0.1 103/ul Normal 0.0-0.1 [facility] Comment on above: Performed By: #### C BC #### [facility] [address] [place] [address] Dr. Kaylen Tejeda Basophils/100 WBC (Bld) 0.9 % Normal 0.2-2.0 [facility] Comment on above: Performed By: #### C BC #### [facility] [address] [place] [address] Dr. Kaylen Tejeda EO # 0.1 103/ul Normal 0.0-0.7 [facility] Comment on above: Performed By: #### C BC #### [facility] [address] [place] [address] Dr. Kaylen Tejeda Eosinophils/100 WBC (Bld) 1.9 % Normal 0.9-7.0 [facility] Comment on above: Performed By: #### C BC #### [facility] [address] [place] [address] Dr. Kaylen Tejeda Erythrocyte distribution width (RBC) [Ratio] 13.5 % Normal 11.0-15.0 [facility] Comment on above: Performed By: #### C BC #### [facility] [address] [place] [address] Dr. Kaylen Tejeda Hematocrit (Bld) [Volume fraction] 45.5 % Normal 42.0-54.0 [facility] Comment on above: Performed By: #### C BC #### [facility] [address] [place] [address] Dr. Kaylen Tejeda Hemoglobin (Bld) [Mass/Vol] 15.8 g/dL Normal 14.0-18.0 [facility] Comment on above: Performed By: #### C BC #### [facility] [address] [place] [address] Dr. Kaylen Tejeda IG # 0.03 10e3/ul Normal 0.00-0.03 [facility] Comment on above: Performed By: #### C BC #### [facility] [address] [place] [address] Dr. Kaylen Tejeda IG % 0.4 % Normal 0.0-0.5 [facility] Comment on above: Performed By: #### C BC #### [facility] [address] [place] [address] Dr. Kaylen Tejeda LYMPH # 1.8 103/ul Normal 1.2-3.8 [facility] Comment on above: Performed By: #### C BC #### [facility] [address] [place] [address] Dr. Kaylen Tejeda Lymphocytes/100 WBC (Bld) 27.3 % Normal 20.5-60.0 [facility] Comment on above: Performed By: #### C BC #### [facility] [address] [place] [address] Dr. Kaylen Tejeda MANUAL DIFF REQ NO Normal [facility] Comment on above: Performed By: #### C BC #### [facility] [address] [place] [address] Dr. Kaylen Tejeda MCH (RBC) [Entitic mass] 30.0 pg Normal 25.9-34.0 [facility] Comment on above: Performed By: #### C BC #### [facility] [address] [place] [address] Dr. Kaylen Tejeda MCHC (RBC) [Mass/Vol] 34.7 g/dL Normal 29.9-35.2 [facility] Comment on above: Performed By: #### C BC #### [facility] [address] [address] [address] Kaylen Tejeda MCV (RBC) [Entitic vol] 86.3 fL Normal 80.0-94.0 [facility] Comment on above: Performed By: #### C BC #### [facility] [address] [address] [address] Kaylen Tejeda MONO # 0.6 103/ul Normal 0.3-0.8 [facility] Comment on above: Performed By: #### C BC #### [facility] [address] [place] [address] Dr. Kaylen Tejeda Monocytes/100 WBC (Bld) 8.7 % Normal 1.7-12.0 [facility] Comment on above: Performed By: #### C BC #### [facility] [address] [place] [address] Dr. Kaylen Tejeda NEUT # 4.1 103/ul Normal 1.4-6.5 [facility] Comment on above: Performed By: #### C BC #### [facility] [address] [place] [address] Dr. Kaylen Tejeda Neutrophils/100 WBC (Bld) 60.8 % Normal 43.0-75.0 [facility] Comment on above: Performed By: #### C BC #### [facility] [address] [place] [address] Dr. Kaylen Tejeda Platelet mean volume (Bld) [Entitic vol] 9.4 fL Critically low 9.5-13.5 [facility] Comment on above: Performed By: #### C BC #### [facility] [address] [place] [address] Dr. Kaylen Tejeda PLT 169 103/ul Normal 150-450 [facility] Comment on above: Performed By: #### C BC #### [facility] [address] [place] [address] Dr. Kaylen Tejeda RBC 5.27 106/ul Normal 4.70-6.10 [facility] Comment on above: Performed By: #### C BC #### [facility] [address] [place] [address] Dr. Kaylen Tejeda WBC 6.7 103/ul Normal 4.0-11.0 [facility] Comment on above: Performed By: #### C BC #### [facility] [address] [place] [address] Dr. Kaylen Tejeda FREE THYROXINE INDEX T7on FTI 2.81 Normal 1.30-4.50 [facility] Comment on above: Performed By: #### B RESEARCH BIOLOGIST, CMP, T7, TSH #### [facility] [address] [place] [address] Dr. Kaylen Tejeda T3U 33.0 % Normal 33.0-40.0 [facility] Comment on above: Performed By: #### B RESEARCH BIOLOGIST, CMP, T7, TSH #### [facility] [address] [place] [address] Dr. Kaylen Tejeda T4 [Mass/Vol] 8.50 ug/dL Normal 4.50-12.10 [facility] Comment on above: Performed By: #### B RESEARCH BIOLOGIST, CMP, T7, TSH #### [facility] [address] [place] [address] Dr. Kaylen Tejeda PROF 14(COMP METB)on 022 Albumin [Mass/Vol] 3.9 g/dL Normal 3.4-5.0 [facility] Comment on above: Performed By: #### B RESEARCH BIOLOGIST, CMP, T7, TSH #### [facility] [address] [place] [address] Dr. Kaylen Tejeda Albumin/Globulin [Mass ratio] 1.1 {ratio} Normal [facility] Comment on above: Performed By: #### B RESEARCH BIOLOGIST, CMP, T7, TSH #### [facility] [address] [place] [address] Dr. Kaylen Tejeda ALP [Catalytic activity/Vol] 78 U/L Normal 46-116 [facility] Comment on above: Performed By: #### B RESEARCH BIOLOGIST, CMP, T7, TSH #### [facility] [address] [place] [address] Dr. Kaylen Tejeda ALT [Catalytic activity/Vol] 54 U/L Normal 16-63 [facility] Comment on above: Performed By: #### B RESEARCH BIOLOGIST, CMP, T7, TSH #### [facility] [address] [address] [address] Kaylen Tejeda Anion gap [Moles/Vol] 10.9 mmol/L Normal Th e [facility] Comment on above: Performed By: #### B RESEARCH BIOLOGIST, CMP, T7, TSH #### [facility] [address] [place] [address] Dr. Kaylen Tejeda AST [Catalytic activity/Vol] 32 U/L Normal 15-37 [facility] Comment on above: Performed By: #### B RESEARCH BIOLOGIST, CMP, T7, TSH #### [facility] [address] [place] [address] Dr. Kaylen Tejeda Bilirubin [Mass/Vol] 1.6 mg/dL Critically high 0.2-1.0 [facility] Comment on above: Performed By: #### B RESEARCH BIOLOGIST, CMP, T7, TSH #### [facility] [address] [place] [address] Dr. Kaylen Tejeda Calcium [Mass/Vol] 9.1 mg/dL Normal 8.5-10.1 [facility] Comment on above: Performed By: #### B RESEARCH BIOLOGIST, CMP, T7, TSH #### [facility] [address] [place] [address] Dr. Kaylen Tejeda Chloride [Moles/Vol] 102 mmol/L Normal 98-107 [facility] Comment on above: Performed By: #### B RESEARCH BIOLOGIST, CMP, T7, TSH #### [facility] [address] [place] [address] Dr. Kaylen Tejeda CO2 [Moles/Vol] 29.0 mmol/L Normal 21.0-32.0 [facility] Comment on above: Performed By: #### B RESEARCH BIOLOGIST, CMP, T7, TSH #### [facility] [address] [place] [address] Dr. Kaylen Tejeda Creatinine [Mass/Vol] 1.04 mg/dL Normal 0.70-1.30 [facility] Comment on above: Performed By: #### B RESEARCH BIOLOGIST, CMP, T7, TSH #### [facility] [address] [address] [address] Kaylen Tejeda EGFR-AF NORWEGIAN >60 Normal >=60 [facility] Comment on above: Performed By: #### B RESEARCH BIOLOGIST, CMP, T7, TSH #### [facility] [address] [address] [address] Kaylen Tejeda EGFR-NON AF NORWEGIAN >60 Normal >=60 [facility] Comment on above: Performed By: #### B RESEARCH BIOLOGIST, CMP, T7, TSH #### [facility] [address] [place] [address] Dr. Kaylen Tejeda Globulin (S) [Mass/Vol] 3.5 g/dL Normal [facility] Comment on above: Performed By: #### B RESEARCH BIOLOGIST, CMP, T7, TSH #### [facility] [address] [place] [address] Dr. Kaylen Tejeda Glucose [Mass/Vol] 116 mg/dL Critically high 74-[address] [facility] Comment on above: Performed By: #### B RESEARCH BIOLOGIST, CMP, T7, TSH #### [facility] [address] [place] [address] Dr. Kaylen Tejeda Potassium [Moles/Vol] 3.9 mmol/L Normal 3.5-5.1 [facility] Comment on above: Performed By: #### B RESEARCH BIOLOGIST, CMP, T7, TSH #### [facility] [address] [place] [address] Dr. Kaylen Tejeda Protein [Mass/Vol] 7.4 g/dL Normal 6.4-8.2 [facility] Comment on above: Performed By: #### B RESEARCH BIOLOGIST, CMP, T7, TSH #### [facility] [address] [place] [address] Dr. Kaylen Tejeda Sodium [Moles/Vol] 138 mmol/L Normal 136-145 [facility] Comment on above: Performed By: #### B RESEARCH BIOLOGIST, CMP, T7, TSH #### [facility] [address] [place] [address] Dr. Kaylen Tejeda Urea nitrogen [Mass/Vol] 11.0 mg/dL Normal 7.0-18.0 [facility] Comment on above: Performed By: #### B RESEARCH BIOLOGIST, CMP, T7, TSH #### [facility] [address] [address] [address] Kaylen Tejeda Urea nitrogen/Creatinine [Mass ratio] 10.6 mg/mg Normal [facility] Comment on above: Performed By: #### B RESEARCH BIOLOGIST, CMP, T7, TSH #### [facility] [address] [address] [address] Kaylen Tejeda TSHon 02-13-2022 TSH 1.140 uIU/mL Normal 0.358-3.740 [facility] Comment on above: Performed By: #### B RESEARCH BIOLOGIST, CMP, T7, TSH #### [facility] [address] [address] [address] Kaylen Tejeda TSH RANGE SEE BELOW Normal [facility] Comment on above: Result Comment: <0.3 4 UIU/ml HYPERTHYROID 0.34-5.60 UIU/ml EUTHYROID >5.60 UIU/ml HYPOTHYROID Performed By: #### B RESEARCH BIOLOGIST, CMP, T7, TSH #### [facility] [address] [address] [address] Kaylen Tejeda Activated partial thrombopla stin time (aPTT) in platelet poor plasma by coagulation aOrdered By: Brendon Mcnamara on 02-12-2022 aPTT Coag (PPP) [Time] 32.3 s 25.1-36.5 [facility] Albumin [Mass/volume] in Ser um or PlasmaOrdered By: Brendon Mcnamara on 02-12-2022 Albumin [Mass/Vol] 3.9 g/dL 3.2-5.5 [facility] Basophils Auto (Bld) [#/Vol] Ordered By: Brendon Mcnamara on 02-12-2022 Basophils (Bld) [#/Vol] 0.0 10*3/uL 0.0-0.2 [facility] Basophils/100 WBC Auto (Bld) Ordered By: Brendon Mcnamara on 02-12-2022 Basophils/100 WBC (Bld) 0.8 % [facility] Blood hemoglobin measurement (mass/volume)Ordered By: Brendon Mcnamara on 02-12-2022 Hemoglobin (Bld) [Mass/Vol] 15.5 g/dL 13.0-17.0 [facility] Blood leukocytes automated c ount (number/volume)Ordered By: Brendon Mcnamara on 02-12-2022 WBC (Bld) [#/Vol] 5.9 10*3/uL 4.5-11.[address] [facility] [address] angio [place]ston 02-12-2022 CT angio chest [facility] Main [place] [address] [place] [address] CT Scan Report Signed Patient: Guy Holloway MR#: [id number] : 1965 Acct:[id number] Age/Sex: 56 / M ADM Date: 02/12/22 Loc: ER Room: Type: [facility] ER Attending Dr: Ordering Provider: Brendon [...] small hiatal hernia. Impression dictated by: Tiffanie Muirllo Jr., M.D.02/12/2022 2:52 PM Dictation Location: [place] [address] Transcribed By: [facility] 02/12/22 1452 Dictated By: Tiffanie Murillo Jr, MD 02/12/22 1441 Signed By: 02/12/22 145 Normal [facility] Complete Blood Count Auto Di ffon 02-12-2022 Basophils (Bld) [#/Vol] 0.0 10*3/uL Normal 0.0-0.2 [facility] Comment on above: Result Comment: PERF ORMED BY: [place] [address] PATHOLOGIST BEVERAGE INSPECTION MACHINE TENDER KAIA KENDRICK M.D. Performed By: #### C MP, PT, PTT, CK, CKMB, HS TROP, CBC #### [facility] [address] [place] [address] Basophils/100 WBC (Bld) 0.8 % Normal . [facility] Comment on above: Performed By: #### C MP, PT, PTT, CK, CKMB, HS TROP, CBC #### [facility] [address] [place] [address] Eosinophils (Bld) [#/Vol] 0.1 10*3/uL Normal 0.0-0.45 [facility] Comment on above: Performed By: #### C MP, PT, PTT, CK, CKMB, HS TROP, CBC #### [facility] [address] Eosinophils/100 WBC (Bld) 2.4 % Normal . [facility] Comment on above: Performed By: #### C MP, PT, PTT, CK, CKMB, HS TROP, CBC #### [facility] [address] Erythrocyte distribution width (RBC) [Ratio] 14.9 % High 12.0-14.8 [facility] Comment on above: Performed By: #### C MP, PT, PTT, CK, CKMB, HS TROP, CBC #### [address] Hematocrit (Bld) [Volume fraction] 44.4 % Normal 38.8-50.0 [facility] Comment on above: Performed By: #### C MP, PT, PTT, CK, CKMB, HS TROP, CBC #### [address] Hemoglobin (Bld) [Mass/Vol] 15.5 g/dL Normal 13.0-17.0 [facility] Comment on above: Performed By: #### C MP, PT, PTT, CK, CKMB, HS TROP, CBC #### [address] Lymphocytes (Bld) [#/Vol] 1.4 10*3/uL Normal 1.00-4.8 [facility] Comment on above: Performed By: #### C MP, PT, PTT, CK, CKMB, HS TROP, CBC #### [address] Lymphocytes/100 WBC (Bld) 23.8 % Normal . [facility] Comment on above: Performed By: #### C MP, PT, PTT, CK, CKMB, HS TROP, CBC #### [address] MCH (RBC) [Entitic mass] 29.6 pg Normal 27.5-35.2 [facility] Comment on above: Performed By: #### C MP, PT, PTT, CK, CKMB, HS TROP, CBC #### [address] MCV (RBC) [Entitic vol] 85.1 fL Normal 83.5-101 [facility] Comment on above: Performed By: #### C MP, PT, PTT, CK, CKMB, HS TROP, CBC #### [address] Mean Corpuscular HGB Conc 34.8 g/dL Normal 32.5-35.6 [facility] Comment on above: Performed By: #### C MP, PT, PTT, CK, CKMB, HS TROP, CBC #### [facility] [address] Monocytes (Bld) [#/Vol] 0.7 10*3/uL Normal 0.0-0.8 [facility] Comment on above: Performed By: #### C MP, PT, PTT, CK, CKMB, HS TROP, CBC #### [address] Monocytes/100 WBC (Bld) 11.8 % Normal . [facility] Comment on above: Performed By: #### C MP, PT, PTT, CK, CKMB, HS TROP, CBC #### [address] Neutrophils (Bld) [#/Vol] 3.6 10*3/uL Normal 1.8-7.7 [facility] Comment on above: Performed By: #### C MP, PT, PTT, CK, CKMB, HS TROP, CBC #### [address] Neutrophils/100 WBC (Bld) 61.2 % Normal . [facility] Comment on above: Performed By: #### C MP, PT, PTT, CK, CKMB, HS TROP, CBC #### [address] Nucleated RBC/100 WBC (Bld) [Ratio] 0.3 % Normal 0-0.5 [facility] Comment on above: Performed By: #### C MP, PT, PTT, CK, CKMB, HS TROP, CBC #### [address] Platelet mean volume (Bld) [Entitic vol] 8.2 fL Normal 6.6-10.1 [facility] Comment on above: Performed By: #### C MP, PT, PTT, CK, CKMB, HS TROP, CBC #### [facility] [address] Platelets (Bld) [#/Vol] 167 10*3/uL Normal 150-450 [facility] Comment on above: Performed By: #### C MP, PT, PTT, CK, CKMB, HS TROP, CBC #### [facility] [address] RBC (Bld) [#/Vol] 5.22 10*6/uL Normal 3.90-5.60 [facility] Comment on above: Performed By: #### C MP, PT, PTT, CK, CKMB, HS TROP, CBC #### [facility] [address] WBC (Bld) [#/Vol] 5.9 10*3/uL Normal 4.5-11.0 [facility] Comment on above: Performed By: #### C MP, PT, PTT, CK, CKMB, HS TROP, CBC #### [facility] [address] Comprehensive Metabolic Pane corie 02-12-2022 Albumin [Mass/Vol] 3.9 g/dL Normal 3.2-5.5 [facility] Comment on above: Performed By: #### C MP, PT, PTT, CK, CKMB, HS TROP, CBC #### [address] Albumin/Globulin [Mass ratio] 1.5 {ratio} Normal [facility] Comment on above: Performed By: #### C MP, PT, PTT, CK, CKMB, HS TROP, CBC #### [facility] [address] ALP [Catalytic activity/Vol] 64 U/L Normal 32-92 [facility] Comment on above: Performed By: #### C MP, PT, PTT, CK, CKMB, HS TROP, CBC #### [address] ALT [Catalytic activity/Vol] 39 U/L Normal 10-60 [facility] Comment on above: Performed By: #### C MP, PT, PTT, CK, CKMB, HS TROP, CBC #### [address] AST [Catalytic activity/Vol] 32 U/L Normal 10-42 [facility] Comment on above: Performed By: #### C MP, PT, PTT, CK, CKMB, HS TROP, CBC #### [address] Bilirubin [Mass/Vol] 1.6 mg/dL High 0.3-1.2 [facility] Comment on above: Result Comment: Samp les from patients who have taken Naproxen have shown spurious elevation in Total Bilirubin levels. A metabolite of Naproxen, O-desmethylnaproxen, has been shown to interfere with the Jendrassik-Grof method for measuring Total Bilirubin. Performed By: #### C MP, PT, PTT, CK, CKMB, HS TROP, CBC #### [address] Calcium [Mass/Vol] 9.1 mg/dL Normal 8.2-10.2 [facility] Comment on above: Performed By: #### C MP, PT, PTT, CK, CKMB, HS TROP, CBC #### [address] Chloride [Moles/Vol] 103 mmol/L Normal 95-114 [facility] Comment on above: Performed By: #### C MP, PT, PTT, CK, CKMB, HS TROP, CBC #### [address] CO2 [Moles/Vol] 23.1 mmol/L Normal 22.0-30.[address] [facility] Comment on above: Performed By: #### C MP, PT, PTT, CK, CKMB, HS TROP, CBC #### [address] Creatinine [Mass/Vol] 1.03 mg/dL Normal 0.64-1.27 [facility] Comment on above: Performed By: #### C MP, PT, PTT, CK, CKMB, HS TROP, CBC #### [address] Creatinine Clr Calc Pharmacy 112.27 [facility] Comment on above: Result Comment: PERF ORMED BY: [place] [address] PATHOLOGIST BEVERAGE INSPECTION MACHINE TENDER KAIA KENDRICK M.D. Performed By: #### C MP, PT, PTT, CK, CKMB, HS TROP, CBC #### [address] Estimated GFR ( Puneet > 60 [facility] Comment on above: Result Comment: GFR estimated reference range: According to KDOQI guidelines, <60 ml/min/1.73m2 is sufficient to diagnose a patient with chronic kidney disease. Performed By: #### C MP, PT, PTT, CK, CKMB, HS TROP, CBC #### [address] Estimated GFR (Non- Am > 60 [facility] Comment on above: Performed By: #### C MP, PT, PTT, CK, CKMB, HS TROP, CBC #### [address] Globulin (S) [Mass/Vol] 2.6 g/dL [facility] Comment on above: Performed By: #### C MP, PT, PTT, CK, CKMB, HS TROP, CBC #### [address] Glucose [Mass/Vol] 79 mg/dL Normal 70-100 [facility] Comment on above: Result Comment: Liberal Glucose Reference Range is dependent on time and content of last meal. Glucose of more than 200 mg/dL in a nonstressed, ambulatory subject supports the diagnosis of Diabetes Mellitus. ADA recommended reference range Performed By: #### C MP, PT, PTT, CK, CKMB, HS TROP, CBC #### [address] Potassium [Moles/Vol] 3.9 mmol/L Normal 3.5-5.1 [facility] Comment on above: Performed By: #### C MP, PT, PTT, CK, CKMB, HS TROP, CBC #### [facility] [address] Protein [Mass/Vol] 6.5 g/dL Normal 6.1-7.9 [facility] Comment on above: Performed By: #### C MP, PT, PTT, CK, CKMB, HS TROP, CBC #### [facility] [address] Sodium [Moles/Vol] 137 mmol/L Normal 136-146 [facility] Comment on above: Performed By: #### C MP, PT, PTT, CK, CKMB, HS TROP, CBC #### [facility] [address] Urea nitrogen [Mass/Vol] 10 mg/dL Normal 9-23 [facility] Comment on above: Performed By: #### C MP, PT, PTT, CK, CKMB, HS TROP, CBC #### [facility] [address] Creatine Kinaseon 02-12-2022 CK [Catalytic activity/Vol] 380 U/L High [facility] Comment on above: Performed By: #### C MP, PT, PTT, CK, CKMB, HS TROP, CBC #### [address] Creatine kinase [Enzymatic a ctivity/volume] in Serum or PlasmaOrdered By: Brendon Mcnamara on 02-12-2022 CK [Catalytic activity/Vol] 380 U/L [facility] Creatinine Kinase MBon 02-12 CK.MB [Mass/Vol] 5.7 ng/mL Normal 0.6-6.[address] [facility] Comment on above: Performed By: #### C MP, PT, PTT, CK, CKMB, HS TROP, CBC #### [facility] [address] CKMB Relative Index 1.5 % Normal 0.00-2.50 [facility] Comment on above: Performed By: #### C MP, PT, PTT, CK, CKMB, HS TROP, CBC #### [facility] [address] Creatinine and Glomerular fi ltration rate.predicted panel (S/P/Bld)Ordered By: Brendon Mcnamara on 02-12-2022 Creatinine [Mass/Vol] 1.03 mg/dL 0.64-1.27 [facility] ECG 12 lead ECGon 02-12-2022 ECG 12 lead ECG [facility] Main [place] [address] [place] [address] Electrocardiograph Report Signed Patient: Guy Holloway MR#: [id number] : 1965 Acct:[id number] Age/Sex: 56 / M ADM Date: 02/12/22 Loc: ER Room: Type: [facility] ER Attending Dr: Ordering Provider: Brendon [...] ECGs available Confirmed by Brendon Mcnamara DO ([id number]) on 02/12/2022 2:55:30 PM Referred By: Electronically Signed By:Brendon Mcnamara DO Transcribed By: MUS Signed By Brendon Mcnamara DO 02/12 1455 Normal [facility] Eosinophils Auto (Bld) [#/Vo l]Ordered By: Brendon Mcnamara on 02-12-2022 Eosinophils (Bld) [#/Vol] 0.1 10*3/uL 0.0-0.45 [facility] Eosinophils/100 WBC Auto (Bl d)Ordered By: Brendon Mcnamara on 02-12-2022 Eosinophils/100 WBC (Bld) 2.4 % [facility] Erythrocyte distribution wid th Auto (RBC) [Ratio]Ordered By: Brendon Mcnamara on 02-12-2022 Erythrocyte distribution width (RBC) [Ratio] 14.9 % 12.0-14.8 [facility] Estimated glomerular filtrat ion rate (GFR) non- AmericanOrdered By: Brendon Mcnamara on 02-12-2022 GFR/1.73 sq M.predicted among non-blacks MDRD (S/P/Bld) [Vol rate/Area] > 60 mL/Min [facility] Globulin Calc (S) [Mass/Vol] Ordered By: Brendon Mcnamara on 02-12-2022 Globulin (S) [Mass/Vol] 2.6 g/dL [facility] Hematocrit Auto (Bld) [Volum e fraction]Ordered By: Brendon Mcnamara on 02-12-2022 Hematocrit (Bld) [Volume fraction] 44.4 % 38.8-50.0 [facility] Laboratory - CoagulationOrde red By: Brendon Mcnamara on 02-12-2022 PT Coag (PPP) [Time] 14.2 s 9.0-12.9 [facility] Laboratory - Hematology and Cell countsOrdered By: Brendon Mcnamara on 02-12-2022 Nucleated RBC/100 WBC (Bld) [Ratio] 0.3 % 0-0.5 [facility] Lymphocytes Auto (Bld) [#/Vo l]Ordered By: Brendon Mcnamara on 02-12-2022 Lymphocytes (Bld) [#/Vol] 1.4 10*3/uL 1.00-4.8 [facility] Lymphocytes/100 WBC Auto (Bl d)Ordered By: Brendon Mcnamara on 02-12-2022 Lymphocytes/100 WBC (Bld) 23.8 % [facility] MCH Auto (RBC) [Entitic mass ]Ordered By: Brendon Mcnamara on 02-12-2022 MCH (RBC) [Entitic mass] 29.6 pg 27.5-35.2 [facility] MCHC Auto (RBC) [Mass/Vol]Or dered By: Brendon Mcnamara on 02-12-2022 MCHC (RBC) [Mass/Vol] 34.8 g/dL 32.5-35.6 [facility] MCV Auto (RBC) [Entitic vol] Ordered By: Brendon Mcnamara on 02-12-2022 MCV (RBC) [Entitic vol] 85.1 fL 83.5-101 [facility] Monocytes Auto (Bld) [#/Vol] Ordered By: Brendon Mcnamara on 02-12-2022 Monocytes (Bld) [#/Vol] 0.7 10*3/uL 0.0-0.8 [facility] Monocytes/100 WBC Auto (Bld) Ordered By: Brendon Mcnamara on 02-12-2022 Monocytes/100 WBC (Bld) 11.8 % [facility] Neutrophils Auto (Bld) [#/Vo l]Ordered By: Brendon [place] on 02-12-2022 Neutrophils (Bld) [#/Vol] 3.6 10*3/uL 1.8-7.7 [facility] Neutrophils/100 WBC Auto (Bl d)Ordered By: Brendon Mcnamara on 02-12-2022 Neutrophils/100 WBC (Bld) 61.2 % [facility] No Panel InformationOrdered By: Brendon Mcnamara on 02-12-2022 Estimated GFR () > 60 mL/Min [facility] Comment on above: GFR estimated refere nce range: According to KDOQI guidelines, <60 ml/min/1.73m2 is sufficient to diagnose a patient with chronic kidney disease. Pharmacy Creatinine Clearance (Chem 112.27 [facility] Partial Thromboplastin Timeo n 02-12-2022 aPTT Coag (Bld) [Time] 32.3 s Normal 25.1-36.5 [facility] Comment on above: Result Comment: PERF ORMED BY: [place] [address] PATHOLOGIST BEVERAGE INSPECTION MACHINE TENDER KAIA KENDRICK M.D. Performed By: #### C MP, PT, PTT, CK, CKMB, HS TROP, CBC #### [address] Platelet mean volume Auto (B ld) [Entitic vol]Ordered By: Brendon Mcnamara on 02-12-2022 Platelet mean volume (Bld) [Entitic vol] 8.2 fL 6.6-10.1 [facility] Platelet poor plasma interna tional normalized ratio (INR) by coagulation assay (relatOrdered By: Brendon Mcnamara on 02-12-2022 INR Coag (PPP) [Relative time] 1.3 {INR} [facility] Comment on above: INR Therapeutic Rang e [...] 02-12-2022 Platelets (Bld) [#/Vol] 167 10*3/uL 150-450 [facility] Protein [Mass/volume] in Ser um or PlasmaOrdered By: Brendon Mcnamara on 02-12-2022 Protein [Mass/Vol] 6.5 g/dL 6.1-7.9 [facility] Prothrombin Time INRon 02-12 INR Coag (PPP) [Relative time] 1.3 {INR} Normal [facility] Comment on above: Result Comment: INR Therapeutic [...] PTT, CK, CKMB, HS TROP, CBC #### [facility] [address] PT Coag (PPP) [Time] 14.2 s High 9.0-12.9 [facility] Comment on above: Performed By: #### C MP, PT, PTT, CK, CKMB, HS TROP, CBC #### [facility] [address] [place] [address] [place] RBC Auto (Bld) [#/Vol]Ordere d By: Brendon Mcnamara on 02-12-2022 RBC (Bld) [#/Vol] 5.22 10*6/uL 3.90-5.60 [facility] Serum or plasma alanine mccabe otransferase measurement without P-5'-P (enzymatic activiOrdered By: Brendon Mcnamara on 02-12-2022 ALT No additional P-5'-P [Catalytic activity/Vol] 39 U/L 10-60 [facility] Serum or plasma albumin/glob ulin mass ratioOrdered By: Brendon Mcnamara on 02-12-2022 Albumin/Globulin [Mass ratio] 1.5 {ratio} [facility] Serum or plasma alkaline skyler sphatase measurement (enzymatic activity/volume)Ordered By: Brendon Mcnamara on 02-12-2022 ALP [Catalytic activity/Vol] 64 U/L 32-92 [facility] Serum or plasma aspartate am inotransferase measurement (enzymatic activity/volume)Ordered By: Brendon Mcnamara on 02-12-2022 AST [Catalytic activity/Vol] 32 U/L 10-42 [facility] Serum or plasma calcium adilene urement (mass/volume)Ordered By: Brendon Mcnamara on 02-12-2022 Calcium [Mass/Vol] 9.1 mg/dL 8.2-10.2 [facility] Serum or plasma chloride david surement (moles/volume)Ordered By: Brendon Mcnamara on 02-12-2022 Chloride [Moles/Vol] 103 mmol/L 95-114 [facility] Serum or plasma creatine kin ase MB (CKMB)/total creatine kinase (CK) ratio by calculaOrdered By: Brendon Mcnamara on 02-12-2022 CK.MB Calc [Catalytic fraction] 1.5 % 0.00-2.50 [facility] Serum or plasma creatine kin ase MB measurement (mass/volume)Ordered By: Brendon Mcnamara on 02-12-2022 CK.MB [Mass/Vol] 5.7 ng/mL 0.6-6.[address] [facility] Serum or plasma glucose adilene urement (mass/volume)Ordered By: Brendon Mcnamara on 02-12-2022 Glucose [Mass/Vol] 79 mg/dL 70-100 [facility] Comment on above: ADA recommended refe rence range Random Glucose Reference Range is dependent on time and content of last meal. Glucose of more than 200 mg/dL in a nonstressed, ambulatory subject supports the diagnosis of Diabetes Mellitus. Serum or plasma potassium me asurement (moles/volume)Ordered By: Brendon Mcnamara on 02-12-2022 Potassium [Moles/Vol] 3.9 mmol/L 3.5-5.1 [facility] Serum or plasma sodium measu rement (moles/volume)Ordered By: Brendon Mcnamara on 02-12-2022 Sodium [Moles/Vol] 137 mmol/L 136-146 [facility] Serum or plasma total biliru bin measurement (mass/volume)Ordered By: Brendon Mcnamara on 02-12-2022 Bilirubin [Mass/Vol] 1.6 mg/dL 0.3-1.2 [facility] Comment on above: Samples from patient s who have taken Naproxen have shown spurious elevation in Total Bilirubin levels. A metabolite of Naproxen, O-desmethylnaproxen, has been shown to interfere with the Jendayamiik-Lemuel method for measuring Total Bilirubin. Serum or plasma total carbon dioxide measurement (moles/volume)Ordered By: Brendon Mcnamara on 02-12-2022 CO2 [Moles/Vol] 23.1 mmol/L 22.0-30.[address] [facility] Serum or plasma urea nitroge n measurement (mass/volume)Ordered By: Brendon Mcnamara on 02-12-2022 Urea nitrogen [Mass/Vol] 10 mg/dL 9- [facility] Troponin I High Sensitivityo n 02-12-2022 Troponin I High Sensitivity 6 pg/mL Normal 0-20 [facility] Comment on above: Result Comment: PERF ORMED BY: [facility] [address] [place] [address] PATHOLOGIST BEVERAGE INSPECTION MACHINE TENDER KAIA KENDRICK M.D. Performed By: #### H S TROP #### [address] Troponin I High Sensitivity 6 pg/mL Normal 0-20 [facility] Comment on above: Result Comment: PERF ORMED BY: [facility] [address] [place] [address] PATHOLOGIST BEVERAGE INSPE[employer] MACHINE TENDER KAIA KENDRICK M.D. Performed By: #### C MP, PT, PTT, CK, CKMB, HS TROP, CBC #### [facility] [address] Troponin I.cardiac [Mass/vol ume] in Serum or Plasma by High sensitivity methodOrdered By: Brendon Mcnamara on 02-12-2022 Troponin I.cardiac High sensitivity method [Mass/Vol] 6 pg/mL 0- [facility] Vital Signs Date Time Vital Sign Value Performing Clinician Faci lity 07-30-2022 09:28-0400 Body height 185.4 cm Robert Kahn MD Work Phone: [facility] 07-30-2022 09:28-0400 Body weight 136.08 kg Robert Kahn MD Work Phone: [facility] 07-23-2022 10:45-0400 Body height 182.9 cm Kushal Christian MD Work Phone: [facility] 07-23-2022 10:45-0400 Body weight 136.08 kg Kushal Christian MD Work Phone: [facility] 02-12-2022 15:10-0400 Diastolic blood pressure 106 mm[Hg] MD Danielle Hernandez Work Phone: [facility] 02-12-2022 15:10-0400 Heart rate 65 /min MD Danielle Hernandez Work Phone: [facility] 02-12-2022 15:10-0400 Respiratory rate 18 /min MD Danielle Hernandez Work Phone: [facility] 02-12-2022 15:10-0400 SaO2% (BldA) [Mass fraction] 99 % MD Danielle Hernandez Work Phone: [facility] 02-12-2022 15:10-0400 Systolic blood pressure 167 mm[Hg] MD Danielle Hernandez Work Phone: [facility] 02-12-2022 10:41-0400 Body height 182.88 cm MD Danielle Hernandez Work Phone: [facility] 02-12-2022 [id number] Body mass index (BMI) [Ratio] 41.1 kg/m2 MD Danielle Hernandez Work Phone: [facility] 02-12-2022 [id number] Body temperature 98.3 [degF] MD Danielle Hernandez Work Phone: [facility] 02-12-2022 10:41-0400 Body weight 137.43 kg MD Danielle Hernandez Work Phone: [facility] Encounters Encounter Date Encounter Type Care Provider Facility Start: 03-28-2025 End: 03-28-2025 ambulatory DARREL CABRERA Not Available Start: 03-28-2025 End: 03-28-2025 Bamboo flowsheet Darrel Cabrera DO Work Phone: [facility] Start: 03-28-2025 End: 03-28-2025 Bamboo flowsheet Darrel Yihler DO Work Phone: [facility] Start: 03-26-2025 End: 03-26-2025 Bamboo flowsheet Darrel Nader Zahler DO Work Phone: [facility] Start: 03-26-2025 End: 03-26-2025 Bamboo flowsheet Darrel Yihler DO Work Phone: [facility] Start: 03-26-2025 End: 03-26-2025 Office outpatient new 45 minutes Darrel Cabrera DO Work Phone: [facility] Comment on above: Foreign body of righ t cornea, initial encounter (Primary Dx) Start: 03-26-2025 End: 03-26-2025 ambulatory DARREL CABRERA Not Available Start: 12-15-2022 End: 12-15-2022 ambulatory DANIELLE HERNANDEZ Facility:[facility] Start: 12-15-2022 End: 12-15-2022 Patient encounter procedure Robert Kahn MD Work Phone: Orthopaedics Comment on above: Status post right hi p replacement (Primary Dx) Start: 12-15-2022 End: 12-15-2022 Subsequent hospital visit by physician [facility] Work Phone: Radiology Comment on above: Status post right hi p replacement [Z96.641] Start: 11-10-2022 End: 11-10-2022 ambulatory DANIELLE M HOY Facility:[facility] Start: 11-10-2022 End: 11-10-2022 Subsequent hospital visit by physician [facility] Work Phone: Radiology Comment on above: Status post right hi p replacement [Z96.641] Start: 11-10-2022 End: 11-10-2022 Patient encounter procedure Robert Kahn MD Work Phone: Orthopaedics Comment on above: Status post right hi p replacement (Primary Dx) Start: 10-09-2022 End: 10-09-2022 ambulatory DANIELLE M HOY Facility:[facility] Start: 10-09-2022 End: 10-09-2022 Patient encounter procedure Jacob Singleton PA-C Work Phone: Orthopaedics Comment on above: Status post right hi p replacement (Primary Dx) Start: 10-09-2022 End: 10-09-2022 Subsequent hospital visit by physician [facility]r [facility] Work Phone: Radiology Comment on above: Status post right hi p replacement [Z96.641] Start: 09-23-2022 End: 09-24-2022 ambulatory DANIELLE M Y Facility:[facility] Start: 09-14-2022 End: 09-14-2022 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 Start: 09-10-2022 Orders Only Jacob lentz PA-C Work Phone: Orthopaedics Comment on above: 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) Patient Question Start: 09-09-2022 Encounter for other preprocedural examination JACOB HUBBARDI [facility] Start: 09-09-2022 End: 09-09-2022 ambulatory DANIELLE Drew MARY Facility:[facility] Start: 09-08-2022 Telephone encounter Robert Horton ra, MD Work Phone: [facility] Comment on above: Appointment Start: 09-01-2022 End: 09-02-[address] DANIELLE HERNANDEZ Facility: Start: 08-31-2022 End: 08-31-2022 ambulatory DANIELLE Drew MARY Facility:[facility] Start: 08-25-2022 End: 08-25-2022 ambulatory Jacob Betty SHAIKH Work Phone: Orthopaedics Comment on above: Primary osteoarthrit is of right hip (Primary Dx); History of DVT of lower extremity Start: 08-25-2022 End: 08-25-2022 Telemedicine consultation with patient Jacob Betty SHAIKH Work Phone: TIFFANIE JACOBO [facility] Start: 08-24-2022 Telephone encounter Robert Horton ra, MD Work Phone: Orthopaedics Comment on above: Question Start: 08-12-2022 End: 08-12-[address] [facility] Start: 08-12-2022 End: 08-12-2022 Encounter for other preprocedural examination [facility] Start: 07-30-2022 End: 07-30-2022 ambulatory KUSHAL CHRISTIAN Facility:[facility] Start: 07-30-2022 End: 07-30-2022 Patient encounter procedure Robert Kahn MD Work Phone: Orthopaedics Comment on above: Primary osteoarthrit is of right hip (Primary Dx); History of DVT of lower extremity Start: 07-20-2022 End: 07-20-2022 ambulatory Miriam Mendez RT(R) Radiology Comment on above: Radiology XR Start: 07-20-2022 End: 07-20-2022 Patient encounter procedure Miriam Mendez RT(R) [facility] Comment on above: Primary osteoarthrit is of [...] 02-12-2022 Emergency department patient visit Danielle Hernandez Facility:[facility] Start: 02-12-2022 End: 02-12-2022 Emergency department patient visit MD Danielle Hernandez Work Phone: [facility] Procedures Date Procedure Procedure Detail Performing Clinician Start: 03-28-2025 End: 03-28-2025 Oph medical xm&eval intermediate estab pt Foreign body of right cornea, initial encounter Darrel Cabrera DO Work Phone: Comment on above: Foreign body of righ t cornea, initial encounter (Primary Dx) Start: 12-15-2022 Radex hip unilateral with pelvis 2-3 views Jacob Singleton PA-C Work Phone: Start: 11-10-2022 Radex hip unilateral with pelvis 2-3 views Robert Kahn MD Work Phone: Start: 10-09-2022 Radex hip unilateral with pelvis 2-3 views Jacob Singleton PA-C Work Phone: Start: 09-09-2022 Antibody screen JACOB SINGLETON Comment on above: Order Comment: Speci men Type: BLOOD SPECIMENOrdering Facility: [facility] Address: [address] [place] [id number] Performed By: #### T [id number] ####CC MAIN BLOOD BANKCLIA [id number] [facility] [id number] [id number] [place] Start: 07-30-2022 Iadna s aureus ampli fied probe tq Jacob Singleton PA-C Work Phone: Start: 07-20-2022 Radex hip unilateral with pelvis 2-3 views Kushal Christian MD Work Phone: Start: 02-12-2022 CT of chest MD Danielle Hernandez Work Phone: Plan of Treatment Date Care Activity Detail Author Start: 05-03-2031 Urine microalbumin profile DTaP,Tdap,Td Vaccine (2 - Tdap) [facility] Start: 09-24-2025 DIABETES SCREEN DIABETES SCREEN [facility] Start: 09-24-2025 Diabetes Screening Diabetes Screenin g [facility] Start: 09-09-2025 DIABETES SCREEN DIABETES SCREEN [facility] Start: 06-04-2025 Influenza vaccination Influenz a Vaccine (Season Ended) [facility] Start: 03-28-2025 End: 03-28-2025 Patient encounter procedure 03/28/2025 2:30 PM EDT Office Visit [facility] [address] [place] [address] Darrel Cabrera DO [address] [place] [address] Arrived [facility] Comment on above: Arrived Start: 03-26-2025 End: 03-26-2025 Patient encounter procedure 03/26/2025 1:00 PM EDT Office Visit [facility] [address] [place] [address] Darrel Cabrera DO [address] [place] [address] Arrived [facility] Comment on above: Arrived Start: 06-04-2024 Covid-19 Vaccine ( season) Covid-19 Vaccine ( season) [facility] Start: 06-04-2024 Influenza vaccination Influenza Vacc ine (#1) [facility] Start: 2023 RSV Vaccine (1 - 1-d ose 60+ series) RSV Vaccine (1 - 1-dose 60+ series) [facility] Start: 2023 RSV Vaccine (1 - Ris k 60-74 years 1-dose series) RSV Vaccine (1 - Risk 60-74 years 1-dose series) [facility] Start: 06-04-2023 Covid-19 Vaccine ( season) Covid-19 Vaccine ( season) [facility] Start: 06-04-2023 Influenza vaccination Influenza Vacc ine (#1) [facility] Start: 10-04-2022 DEPRESSION ASSESSMENT DEPRESSION ASS ESSMENT [facility] Start: 07-30-2022 End: 09-29-2022 Albumin [Mass/volume] in Serum or Plasma ALBUMIN BLD Lab Routine Primary osteoarthritis of right hip Expected: 07/30/2022, Expires: 09/29/2022 [facility] Work Phone: Comment on above: Expected: 07/30/2022 , Expires: 09/29/2022 Start: 07-30-2022 End: 09-29-2022 CBC W Auto Differential panel - Blood CBC + DIFF Lab Routine Primary osteoarthritis of right hip Expected: 07/30/2022, Expires: 09/29/2022 [facility] Work Phone: Comment on above: Expected: 07/30/2022 , Expires: 09/29/2022 Start: 07-30-2022 End: 09-29-2022 Comprehensive metabolic 2000 panel - Serum or Plasma COMP METABOLIC PANEL Lab Routine Primary osteoarthritis of right hip Expected: 07/30/2022, Expires: 09/29/2022 [facility] Work Phone: Comment on above: Expected: 07/30/2022 , Expires: 09/29/2022 Start: 07-30-2022 End: 09-29-2022 CONFIRM BLOOD TYPE CONFIRM BLOOD TYPE Blood Bank Routine Primary osteoarthritis of right hip Expected: 07/30/2022, Expires: 09/29/2022 [facility] Work Phone: Comment on above: Expected: 07/30/2022 , Expires: 09/29/2022 Start: 07-30-2022 End: 09-29-2022 TYPE AND SCREEN,30 DAY TYPE AND SCREEN,30 DAY Blood Bank Routine Primary osteoarthritis of right hip Expected: 07/30/2022, Expires: 09/29/2022 [facility] Work Phone: Comment on above: Expected: 07/30/2022 , Expires: 09/29/2022 Start: 06-04-2022 Influenza vaccination INFLUENZA (#1) [facility] Start: 12-01-2021 COVID-19 VACCINE (4 - Booster for Pfizer series) COVID-19 VACCINE (4 - Booster for Pfizer series) [facility] Start: 10-04-2021 DEPRESSION ASSESSMENT DEPRESSION ASS ESSMENT [facility] Start: 10-22-2018 DIABETES SCREEN DIABETES SCREEN [facility] Start: 2018 PROSTATE CANCER SCREENING DISCUSSION PROSTATE CANCER SCREENING DISCUSSION [facility] Start: 2018 Prostate specific antigen measurement Prostate Cancer Screening Discussion [facility] Start: 2013 SHINGRIX VACCINE (1 of 2) SHINGRIX VACCINE (1 of 2) [facility] Start: 2008 COLOGUARD (FIT-DNA) COLOGUARD (FIT-D NA) [facility] Start: 2008 Colonoscopy COLONOSCOPY [facility] Start: 2008 COLORECTAL CANCER SCREENING COLORECTAL CANCER SCREENING [facility] Start: [address] COLONOGRAPHY [facility] Start: 2008 FECAL OCCULT BLOOD FECAL OCCULT BLOO D [facility] Start: 2008 Screening for malign ant neoplasm of colon [facility] Start: 2008 SIGMOIDOSCOPY SIGMOIDOSCOPY [facility] Start: 1998 Lipid 1996 panel - Serum or Plasma Lipid Screening [facility] Start: 1998 Lipid panel Lipid Screening [facility] Start: 1998 LIPID SCREEN LIPID SCREEN [facility] Start: 1982 Urine microalbumin profile DTAP,TDAP,TD (1 - Tdap) [facility] Start: 1981 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 SHARON DISEASE VISIT ANNUAL PCP TEAM CHRONIC DISEASE VISIT [facility] Start: 1981 Anxiety Screening Anxiety Screening [facility] Start: 1981 BP CONTROLLED (<130/80) BP CONTROLLE D (<130/80) [facility] Start: 1981 Depression Screening Depression Scre ening [facility] Start: 1981 HEPATITIS C SCREENING HEPATITIS C [facility] Start: 1981 Hepatitis C screening Hepatitis C [facility] Start: 1981 HIV SCREENING HIV SCREENING [facility] Start: 1981 HIV screening HIV Screening [facility] Start: 1963 HEPATITIS B (1 of 3 - 3-dose series) HEPATITIS B (1 of 3 - 3-dose series) [facility] Start: 1965 Screening for malign ant neoplasm of colon [facility] Patient Education Dehydration, Adult (DC) [facility] Work Phone: Patient referral [facility] Work Phone: End: 08-14-2023 XR HIP GENERAL 3V PELV/AP/LAT RIGHT XR HIP GENERAL 3V PELV/AP/LAT RIGHT Radiology Routine Primary osteoarthritis of right hip 1 Occurrences starting 07/15/2022 until 08/14/2023 [facility] Work Phone: Comment on above: 1 Occurrences starti ng 07/15/2022 until 08/14/2023 [facility] Payers Date Payer Category Payer [facility] Sub[facility] Plan / Payer (Effective 2024-Present) Name: Guy Holloway Relation to Subscriber: Self Name: Guy Holloway Payer ID: Not on file Type: Not on file Address: [place] [id number] 2024 Unknown [id number] 2022 Self-pay [id number] 2017 Unknown [id number] 1963 Unknown [id number] 1963 Unknown [id number] 1963 Unknown [id number] 1963 Unknown [id number] 1963 Unknown [id number] 1963 Unknown [id number] 1963 Unknown [id number] 1959 Unknown [id number] Unknown [id number] Unknown [id number] Social History Date Type Detail Facility Start: 02-12-2022 End: 03-26-2025 Tobacco smoking status NHIS Never smoked tobacco (finding) [facility] Start: 1965 Sex Assigned At Male F [facility] Start: 10-14-2015 End: 03-26-2025 Tobacco use and exposure Smokeless tobacco non-user [facility] Start: 01-22-2016 End: 09-09-2022 Alcohol intake Current drinker of alcohol (finding) [facility] Start: 10-14-2015 Alcohol Comment monthly [facility] Start: 1965 Sex Assigned At Not on file C [facility] Start: 07-10-2022 End: 08-31-2022 Exposure to SARS-CoV-2 (event) Not sure [facility] Start: 09-09-2022 Alcohol Comment monthly maybe [facility] Start: 09-09-2022 End: 03-26-2025 History of Social function [facility] Start: 09-09-2022 End: 03-26-2025 Tobacco use panel [facility] National Score (1-100), lower number is lower risk 82 [facility] Tobacco smoking status NHIS Tobacco smoking consumption unknown [facility] Medical Equipment Procedure Code Equipment Code Equipment Origin al Text Equipment Identifier Dates Ppu-Ka-O-Kind Implant - [id number] Start: 10-21-2015 Comment on above: Description: Active Articulation head Head Y7b-[id number] Ringloc Standard Offset Cocrmo Femoral Modular 28mm Sterile - [id number] Start: 10-21-2015 Longevity G7 Arc x Ofst Liner 36mm Size H [id number] Start: 09-23-2022 Stem Taperloc 13 3d 13 Pps 34.3mm Femoral Type 1 Taper Complete Reduced - [id number] Start: 09-23-2022 Screw G7 6.5mm Dome 15mm Acetabular Low Profile Hip - [id number] Start: 09-23-2022 Wbm-Cr-B-Kind Implant - [id number] Start: 10-21-2015 Comment on above: Description: Taperlo c Femoral Stem Cup A6v-Yubyvs Tri-Brandyn Acetabular 60mm 54mm Hip - [id number] Start: 10-21-2015 Comment on above: Description: M2A Mag num Tri-Brandyn Cup TEST ONCE A DAY Start: 07-11-2024 Clinical Notes 07-20-2022 to 03-26-2025 Darrel Cabrera DO - 03/26/2025 1:00 PM Shantel Kahn MD - 12/15/2022 3:39 PM Gilma Gay RT(R) - 12/15/2022 2:15 PM EDTGgenevieve Kahn MD - 11/10/2022 3:37 PM ESTPatient Instructions Note Date & Type Note Facility 03-26-2025 History of Present illness Narrative Images from the original note were not included. Assessment/Plan Diagnoses and all orders for this visit: Foreign body of right cornea, initial encounter - Metallic Corneal foreign body (FB): A metallic corneal foregn body was embedded within the cornea. This was removed after sharing with the patient the procedure and expectations for after the removal. An agar brush was used to clear the metallic fb and clear any rust ring that was present. Tobradex fermin was applied to the eye and they were sent to the waiting room in satisfactory condition. - Cont Emycin fermin right eye (OD) q2-3hrs. Will follow up in 2 days and start topical steroid to minimize possible scarring. Vision is guarded. 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 documented in this encounter [facility] 12-15-2022 Note HNO ID: [id number] Author: Robert Kahn MD Service: ? Author [...] 5) Medication changes aware of dental prophy [facility] 12-15-2022 Note HNO ID: [id number] Author: Gilma Chavez, RT(R) Service: Radiology Author [...] RT Frandy(R) December 15, 2022 1:54 PM [facility] 12-15-2022 History of Present illness Narrative CC: [...] of dental prophy documented in this encounter [facility] 12-15-2022 History of Present illness Narrative [...] 2022 1:54 PM documented in this encounter [facility] 11-10-2022 Note HNO ID: [id number] Author: Robert Kahn MD Service: ? Author [...] palpable can consider CSI at month 3. [facility] 11-10-2022 Note HNO ID: [id number] Author: RT Eloy(Jacy) Service: Radiology Author Type: Joint Filler Type: Progress Notes Filed: 11/10/2022 3:15 PM [...] Farooq/RT Eloy(R) November 10, 2022 3:14 PM [facility] 11-10-2022 History of Present illness Narrative CC: [...] at month 3. documented in this encounter [facility] 11-10-2022 History of Present illness Narrative [...] 2022 3:14 PM documented in this encounter [facility] 10-09-2022 Note HNO ID: [id number] Author: Jacob Singleton PA-C Service: ? Author Type: Physician Salvage Grinder Type: Progress Notes Filed: 10/09/2022 10:44 AM [...] prescription sent to pharmacy Jacob Singleton PA-C [facility] 10-09-2022 Note HNO ID: [id number] Author: RT Juan Jose(R) Service: Radiology Author [...] Juan Jose(R) October 09, 2022 9:52 AM [facility] 10-09-2022 History of Present illness Narrative CC: [...] Jacob Singleton PA-C documented in this encounter [facility] 10-09-2022 History of Present illness Narrative [...] 2022 9:52 AM documented in this encounter [facility] 09-24-2022 Note HNO ID: [id number] Author: Cheyanne Ray (Box Truck Driver) Service: ? Author Type: ? Type: Plan [...] or your Primary Care Provider. Cheyanne Ray (Box Truck Driver) PAGER: yolanda September 24, 2022 3:47 PM [facility] 09-24-2022 Note HNO ID: [id number] Author: Goldie Rosas RN Service: Care Management [...] Name/Phone: Danielle Hernandez MD Other Caregiver Name/Phone: [facility] TRANSPORTATION ARRANGEMENTS: Transportation Arrangements: Car Discharge Information Row Name Admission (Discharged) from 09/23/[address] [facility] SIGNATURE: Goldie Rosas RN PATIENT NAME: Guy Holloway DATE: September 24, 2022 TIME: 2:00 PM PAGER/CONTACT #: [phone] [facility] 09-24-2022 Note HNO ID: [id number] Author: Goldie Rosas RN Service: Care Management [...] STATUS: Extended Recovery Insurance Provider: MCKENZIE SHEFFIELD PPMin OOS NEEDS PRIOR TO DISCHARGE Needs Prior to Discharge: Ready for Discharge POTENTIAL TRANSITION PLANS Outpatient Therapy;Home OT/PT Patient's perception of need for this admission: hip replacement ADVANCE DIRECTIVES Current Advance Directive: None Foundry Hand Attempted to Assist with AD Completion: Yes [...] discharge within 30 days: No PATIENT SCREEN 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 12:05 - [facility] can accept and do a 09/29 SOC. Patient notified and knows to cancel his OP PT appointment. SIGNATURE: Goldie Rosas RN PATIENT NAME: Guy Holloway DATE: September 24, 2022 TIME: 11:59 AM CONTACT #: [phone] [facility] 09-23-2022 Note HNO ID: [id number] Author: Robert Kahn MD Service: Orthopaedic Surgery Author Type: Physician Type: Progress Notes Filed: 09/23/2022 6:18 PM Note Text: SP Rt KARTHIK DF PF EHL intact DP2+ No edema XR satisfactory AP SP Rt KARTHIK Neuro vasc intact WBAT Ancef Elequis starting tomorrow [facility] 09-23-2022 Note HNO ID: [id number] Author: Scott Watson APRN.HORTICULTURAL NURSERY ASSISTANT Service: ? Author Type: Nurse Supply Chain Engineer Type: Anesthesia Procedure Notes Filed: 09/23/2022 9:30 AM Note Text: ANESTHESIOLOGY PROCEDURE NOTE Airway General Information Procedure Start Time/Medication Administration: 09/23/2022 8:51 AM Patient location during procedure: OR Timeout Performed Pre-procedure: timeout performed Consent Obtained: Yes Patient identity confirmed: arm band and patient Staffing HORTICULTURAL NURSERY ASSISTANT: Scott Watson APRN.HORTICULTURAL NURSERY ASSISTANT Performed by: HORTICULTURAL NURSERY ASSISTANT Indications and Patient Condition Indications for airway [...] 1 view with glidescope. SIGNATURE: Scott Watson APRN.HORTICULTURAL NURSERY ASSISTANT PATIENT NAME: Guy Holloway DATE: September 23, 2022 TIME: 9:23 AM CSN: [id number] [facility] 09-14-2022 Nurse Note ORTHOPAEDIC SURGERY PRE-OP PATIENT Guy Holloway is a 57 year old male PROCEDURE: right Total Hip PROCEDURE DATE: 09/23/22 CHECKLIST: Informed Consent: Yes- In [employer]: No Pre-op Skin Preparation Cloths & [...] Effects -Afterhours Number Given- page ortho resident inspector repairer sandstone at [phone] METHOD OF INSTRUCTION: Individual instruction, Written instruction [...] -Call office if questions/concerns -Afterhour for resident inspector repairer sandstone INFECTION MANAGEMENT: -Signs and symptoms of an infection -Importance of contacting the physician MEDICATION SIDE EFFECTS: -Side effects associated with the medication that warrant a call to the physician WOUND CARE: -Correct procedure to perform wound care DISCHARGE PLAN: -Patient referred to rapid recovery program and [place] [facility] was offered to Patient about [...] plans to go home with OP-PT at [facility]. Patient has walker Yes , cane Yes [...] Gilma Drew RN documented in this encounter [facility] 09-10-2022 Miscellaneous Notes I returned the patient's call regarding requested physical therapy order fax. Order was faxed to the patient's preferred therapy facility to begin the process for his upcoming hip surgery. Patient also requested a letter faxed to his employer stating date of surgery and estimated time off of 3 months. Letter faxed to [employer]-patient's employer. documented in this encounter [facility] 09-08-2022 Miscellaneous Notes LVM for patient to call with the name and phone number of facility he would like to go to for outpatient PT. documented in this encounter [facility] 08-25-2022 Note HNO ID: [id number] Author: Jacob Singleton PA-C Service: ? Author Type: Physician Salvage Grinder Type: Progress Notes Filed: 08/25/2022 4:05 PM Note Text: Called patient to discuss pre op questions. He consented for a right KARTHIK at his last office visit and consults were placed to vascular surgery or cardiology regarding his history of DVT following contralateral hip replacement. He was seen by Courtney Rosas NP and cleared for orthopedic surgery. I will notify our surgery aide that patient is ready to set a surgery date. I spent a total of 7 minutes on the date of the service which included preparing to see the patient, completing clinical documentation, and counseling and educating the patient/family/caregiver. Jacob Singleton PA-C [facility] 08-25-2022 History of Present illness Narrative Called patient to discuss pre op questions. He consented for a right KARTHIK at his last office visit and consults were placed to vascular surgery or cardiology regarding his history of DVT following contralateral hip replacement. He was seen by Courtney Rosas NP and cleared for orthopedic surgery. I will notify our surgery aide that patient is ready to set a surgery date. I spent a total of 7 minutes on the date of the service which included preparing to see the patient, completing clinical documentation, and counseling and educating the patient/family/caregiver. Jacob Singleton PA-C documented in this encounter [facility] 08-25-2022 Miscellaneous Notes Patient scheduled for provider phone call today. Patient would like a call back from Dr Kahn regarding his up coming procedure and getting it scheduled. He did all the cardiology steps and he's like a call to discuss where the process it at. Please call and advise. documented in this encounter [facility] 08-18-2022 Note Review of b/p trends at home- remains uncontrolled 139-163/ 75-93. Will add amlodipine 5 mg daily for HTN, staff to call pt and update and ask if he had BMP completed as prescribed at last visit. [facility] 08-12-2022 Note Remains on eliquis anticoagulation [facility] 08-12-2022 Note Remains on Eliquis anticoagulation per PCP [facility] 08-12-2022 Note Currently uncontroll ed in [...] patient next week to review blood pressures [facility] 08-12-2022 Note RCRI- 0???points Class I Risk 3.9???% 30-day risk of , [place], or cardiac arrest EKG today sinus bradycardia [...] left hip surgery he developed extensive DVT/PE. [facility] 08-12-2022 Note UTP CARDIOLOGY PROGR ESS [...] Risk 3.9 % 30-day risk of , [place], or cardiac arrest EKG today sinus bradycardia [...] Remains on eliquis anticoagulation RTC 1-6 months [facility] 07-30-2022 Note HNO ID: [id number] Author: Robert Kahn MD Service: ? Author Type: Physician Type: Progress Notes Filed: 07/30/2022 12:19 PM Note Text: CONSULT ORTHOPAEDIC: HIP PRIMARY CARE PHYSICIAN: Danielle Hernandez MD, MD REFERRING PROVIDER: Kushal Ori Jose [id number] [facility] [address] ASSESSMENT AND PLAN: Impression: Right Hip Severe [...] activities which include walking 2 blocks, doing personal care attendant, exercise, rising from a sitting position, standing [...] High: dx o (more content not included)... [facility] 07-30-2022 Instructions Jacob Singleton PA-C - 07/30/2022 [...] the next three days at the nearest [facility] lab. If you would like, you [...] us: If you are having surgery at [facility] or If you are having surgery at [place], [place], [facility] , [place], [place], [place], [facility], or [facility] documented in this encounter [facility] 07-30-2022 History of Present illness Narrative CONSULT ORTHOPAEDIC: HIP PRIMARY CARE PHYSICIAN: Danielle Hernandez MD, MD REFERRING PROVIDER: Kushal Christian [address] [facility] [address] ASSESSMENT & PLAN: Impression: Right Hip Severe [...] activities which include walking 2 blocks, doing personal care attendant, exercise, rising from a sitting position, standing [...] office visit today: History of DVT, on Eliquis Jacob Singleton PA-C Attending Note I have personally performed a face to face assessment of the patient and have reviewed the FLOR note. I performed a substantive portion of the visit including all aspects of the following. My branett findings include: Exam is severe limp and [...] TIME: 9:28 AM documented in this encounter [facility] 07-23-2022 Note HNO ID: [id number] Author: Kushal Christian MD Service: ? Author Type: Physician Type: Progress Notes Filed: 07/23/2022 11:21 AM Note Text: see dictated not e Kushal Christian II, MD [facility] 07-23-2022 History of Present illness Narrative see dictated not e Kushal Christian II, MD documented in this encounter [facility] 07-20-2022 Note HNO ID: [id number] Author: RT Tri(R) Service: ? Author Type: Joint Filler Type: Progress Notes Filed: 07/20/2022 12:57 PM [...] RT Tri(R) July 20, 2022 12:57 PM [facility] 07-20-2022 Note HNO ID: [id number] Author: Kushal Christian MD Service: Orthopaedic Surgery Author Type: Physician Type: Progress Notes Filed: 07/28/2022 9:32 AM Note Text: [facility] [address] [place], [place] [address] CLINIC NOTE Department of Orthopaedics - [place] Kushal Christian II, M.D. NAME: [facility] NO.: [id number] DATE OF SERVICE: 07/20/2022 CHIEF COMPLAINT: Severe [...] patient states that he weighed 275 in 2015, when we did his hip. I have explained to the patient that our current exposure technique for total hip replacements makes patient of his size difficult. I have suggested 71-gq-33-pound weight loss. In the interim, I have [...] Dictated: 07/21/2022 Date Typed: ambar 07/21/2022 JOB# [id number] [facility] 07-20-2022 History of Present illness Narrative Radiology [...] 2022 12:57 PM documented in this encounter [facility] Evaluation note No assessment inform ation available [facility] Work Phone: Evaluation note Diagnosis Primary osteoarthritis of left hip- Primary Primary localized osteoarthrosis, pelvic region and thigh Primary osteoarthritis of right hip Primary localized osteoarthrosis, pelvic region and thigh History of total left hip replacement [facility] Diagnosis Primary osteoarthritis of right hip- Primary Primary localized osteoarthrosis, pelvic region and thigh History of DVT of lower extremity Personal history of venous thrombosis and embolism [facility] Diagnosis Primary osteoarthritis of right hip- Primary Primary localized osteoarthrosis, pelvic region and thigh History of DVT of lower extremity Personal history of venous thrombosis and embolism [facility] Diagnosis Status post total replacement of right hip- Primary Primary osteoarthritis of right hip Primary localized osteoarthrosis, pelvic region and thigh [facility] Diagnosis Status post right hip replacement- Primary Hip joint replacement by other means [facility] Diagnosis Status post right hip replacement- Primary Hip joint replacement by other means [facility] Diagnosis Status post right hip replacement Hip joint replacement by other means [facility] Diagnosis Status post right hip replacement Hip joint replacement by other means [facility] Diagnosis Pain Generalized pain Preop examination- Primary Preoperative examination, unspecified Primary hypertension Unspecified essential hypertension History of DVT (deep vein thrombosis) Personal history of venous thrombosis and embolism Anticoagulated Long-term (current) use of anticoagulants Class 3 severe obesity with body mass index (BMI) of 40.0 to 44.9 in adult, unspecified obesity type, unspecified whether serious comorbidity present (HCC) [facility] Diagnosis Foreign body of right cornea, initial encounter- Primary documented in this encounter [facility]* Diagnosis Foreign body of right cornea, initial encounter- Primary [facility]* Darrel Cabrera DO - 03/28/2025 2:30 PM EDT Images from the original note were not included. Assessment/Plan Diagnoses and all orders for this visit: Foreign body of right cornea, initial encounter - metallic foreign body (FB) gone with healed abrasion. Cont Emycin fermin right eye (OD) BID for 1wk.Add topical steroid Pred acetate right eye (OD) QID with 4 wk taper. [facility] Additional Instructions Continue taking your blood pressure medications, stay well-hydrated Return for worsening or changing chest pain, lightheadedness, nausea or vomiting [facility] Work Phone: [facility] for referral (narrative)* Diagnostic Procedure Only (Routine) - Pending Review Specialty Diagnoses / Procedures Referred By Manny peña Referred To Contact XR IMAGING Diagnoses Primary osteoarthritis of right hip Procedures XR HIP GENERAL 3V PELV/AP/LAT RIGHT RADEX HIP UNILATERAL WITH PELVIS 2-3 VIEWS Kushal Christian MD [address] [place] [address] Xr Imaging Referral ID Status Reason Start Date Expiration Date Visits Requested Visits Authorized [id number] Pending Review Auto-Generat ed Referral 2 08/14/2023 1 1 [facility] for referral (narrative)* Diagnostic Procedure Only (Routine) - Closed Specialty Diagnoses / Procedures Referred By Contac t Referred To Contact XR IMAGING Diagnoses Status post right hip replacement Procedures XR HIP GENERAL 3V PELV/AP/LAT RIGHT RADEX HIP UNILATERAL WITH PELVIS 2-3 VIEWS Jacob Singleton PA-C [address] [place] [address] Xr Imaging Referral ID Status Reason Start Date Expiration Date V isits Requested Visits Authorized [id number] Closed Auto-Generate d Referral 10/08/2022 11/07/2023 1 1 [facility] for referral (narrative)* Diagnostic Procedure Only (Routine) - Closed Specialty Diagnoses / Procedures Referred By Contac t Referred To Contact XR IMAGING Diagnoses Status post right hip replacement Procedures XR HIP GENERAL 3V PELV/AP/LAT RIGHT RADEX HIP UNILATERAL WITH PELVIS 2-[place] [address] [place] [address] Xr Imaging Referral ID Status Reason Start Date Expiration Date V isits Requested Visits Authorized [id number] Closed Auto-Generate d Referral 11/10/2022 12/10/2023 1 1 [facility] for referral (narrative)* Diagnostic Procedure Only (Routine) - Closed Specialty Diagnoses / Procedures Referred By Contac t Referred To Contact XR IMAGING Diagnoses Status post right hip replacement Procedures XR HIP GENERAL 3V PELV/AP/LAT RIGHT RADEX HIP UNILATERAL WITH PELVIS 2-3 VIEWS Jacob Singleton PA-C [address] [place] [address] Xr Imaging Referral ID Status Reason Start Date Expiration Date V isits Requested Visits Authorized [id number] Closed Auto-Generate d Referral 12/15/2022 01/08/2024 1 1 [facility] for referral (narrative)* Diagnostic Procedure Only (Routine) - Closed Specialty Diagnoses / Procedures Referred By Contac t Referred To Contact XR IMAGING Diagnoses Status post right hip replacement Procedures XR HIP GENERAL 3V PELV/AP/LAT RIGHT RADEX HIP UNILATERAL WITH PELVIS 2-3 VIEWS Jacob Singleton PA-C [address] [place] [address] [place] [address] Referral ID Status Reason Start Date Expiration Date V isits Requested Visits Authorized [id number] Closed Auto-Generate d Referral 12/15/2022 01/08/2024 1 1 [facility] for referral (narrative)* Diagnostic Procedure Only (Routine) - Closed Specialty Diagnoses / Procedures Referred By Contac t Referred To Contact XR IMAGING Diagnoses Status post right hip replacement Procedures XR HIP GENERAL 3V PELV/AP/LAT RIGHT RADEX HIP UNILATERAL WITH PELVIS 2-[place] [address] [place] [address] [place] [address] Referral ID Status Reason Start Date Expiration Date V isits Requested Visits Authorized [id number] Closed Auto-Generate d Referral 11/10/2022 12/10/2023 1 1 [facility] for referral (narrative)* Diagnostic Procedure Only (Routine) - Closed Specialty Diagnoses / Procedures Referred By Contac t Referred To Contact XR IMAGING Diagnoses Status post right hip replacement Procedures XR HIP GENERAL 3V PELV/AP/LAT RIGHT RADEX HIP UNILATERAL WITH PELVIS 2-3 VIEWS Jacob Singleton PA-C [address] [place] [address] [place] [address] Referral ID Status Reason Start Date Expiration Date V isits Requested Visits Authorized [id number] Closed Auto-Generate d Referral 10/08/2022 11/07/2023 1 1 [facility] for referral (narrative)* Diagnostic Procedure Only (Routine) - Closed Specialty Diagnoses / Procedures Referred By Contac t Referred To Contact XR IMAGING Diagnoses Pain Procedures XR HIP GENERAL 3V PELV/AP/LAT RIGHT RADEX HIP UNILATERAL WITH PELVIS 2-3 VIEWS Kushal Christian MD [address] [place] [address] [place] [address] Referral ID Status Reason Start Date Expiration Date V isits Requested Visits Authorized [id number] Closed Auto-Generate d Referral 07/14/2022 08/13/2023 1 1 [facility] for visit Narrative* Diagnostic Procedure Only (Routine) - Closed Specialty Diagnoses / Procedures Referred By Contac t Referred To Contact XR IMAGING Diagnoses Pain Procedures XR HIP GENERAL 3V PELV/AP/LAT RIGHT RADEX HIP UNILATERAL WITH PELVIS 2-3 VIEWS Kushal Christian MD [address] [place] [address] [place] [address] Referral ID Status Reason Start Date Expiration Date V isits Requested Visits Authorized [id number] Closed Auto-Generate d Referral 07/14/2022 08/13/2023 1 1 [facility] Chief Complaint and Reason for Visit Chief Complaint dizziness, trouble b reathing Advance Directives No Advanced Directives Records Found Advance Directive Response Recorded Date/ Time Advance [...] extremity Procedures CONSULT TO VASCULAR MEDICINE OFFICE/OUTPATIENT [facility] 60-74 MINUTES Jacob Singleton PA-C [address] [place] [address] Referral ID Status Reason Start Date Expiration Date Visits Requested Visits Authorized [id number] Authorized PCP Requested Referral 2 07/30/2023 1 1 Specialty Diagnoses / Procedures Referred By Manny t Referred To Contact [facility] Diagnoses Status post total replacement of right hip Procedures CONSULT TO PHYSICAL THERAPY PHYSICAL THERAPY EVALUATION HIGH COMPLEX 45 MINS Jacob Singleton PA-C [address] [facility] [place] [address] [facility] [place] [address] [place] [address] Referral ID Status Reason Start Date Expiration Date Visits Requested Visits Authorized [id number] Pending Review Auto-Generat ed Referral 09/10/2022 09/10/2023 1 1 Additional Source Comments Care Teams (unrecognized sec tion and content) Team Status: Inactive Member Role Status Dates Danielle Hernandez MD Primary Care Provider Active Brendon Mcnamara DO Emergency Provider Active Norberto Booker MD RES Active Team Status: Active Member Role Status Dates Danielle Hernandez MD Primary Care Provider Active Credit Authorizer Relationship Specialty Start Date End Date Danielle Hernandez MD PCP - General Family Medicine 08/19/15 Credit Authorizer Relationship Specialty Start Date End Date Danielle Hernandez MD PCP - General Family Medicine 08/19/15 Credit Authorizer Relationship Specialty Start Date End Date Danielle Hernandez MD PCP - General Family Medicine 08/19/15 Credit Authorizer Relationship Specialty Start Date End Date Danielle Hernandez MD PCP - General Family Medicine 08/19/15 Credit Authorizer Relationship Specialty Start Date End Date Danielle Hernandez MD PCP - General Family Medicine 08/19/15 Credit Authorizer Relationship Specialty Start Date End Date Danielle Hernandez MD PCP - General Family Medicine 08/19/15 Credit Authorizer Relationship Specialty Start Date End Date Danielle Hernandez MD PCP - General Family Medicine 08/19/15 Credit Authorizer Relationship Specialty Start Date End Date Danielle Hernandez MD PCP - General Family Medicine 08/19/15 Credit Authorizer Relationship Specialty Start Date End Date Danielle Hernandez MD PCP - General Family Medicine 08/19/15 Credit Authorizer Relationship Specialty Start Date End Date Danielle Hernandez MD PCP - General Family Medicine 08/19/15 Credit Authorizer Relationship Specialty Start Date End Date Danielle Hernandez MD PCP - General Family Medicine 08/19/15 Credit Authorizer Relationship Specialty Start Date End Date Danielle Hernandez MD (Fax) PCP - General Family Medicine 08/19/15 Credit Authorizer Relationship Specialty Start Date End Date Danielle Hernandez MD [address] [place] [address] PCP - General Family Medicine 03/26/25 Credit Authorizer Relationship Specialty Start Date End Date Danielle Hernandez MD [address] [place] [address] (Fax) PCP - General Family Medicine 03/26/25 Credit Authorizer Relationship Specialty Start Date End Date Danielle Hernandez MD [address] [place] [address] PCP - General Family Medicine 03/26/25 Goals (unrecognized section and content) Goals may be documented in a n alternate section (unrecognized sect ion and content) No Status Records FoundNo Status Records FoundNo Status Records FoundNo Status Records FoundNo Status Records FoundNo Status Records FoundNo Status Records Found INFORMATION SOURCE (unrecogn ized section and content) DATE CREATED AUTHOR 05/16/2022 [facility] DATE CREATED AUTHOR AUTHOR'S ORGANIZ ATION 08/22/2022 [facility] DATE CREATED AUTHOR AUTHOR'S ORGANIZ ATION 09/05/2022 [facility] DATE CREATED AUTHOR AUTHOR'S ORGANIZ ATION 09/29/2022 [facility] DATE CREATED AUTHOR AUTHOR'S ORGANIZ ATION 11/07/2022 [facility] DATE CREATED AUTHOR AUTHOR'S ORGANIZ ATION 12/17/2022 [facility] DATE CREATED AUTHOR AUTHOR'S ORGANIZ ATION 03/29/2025 [facility] EPIC Source Comments (unrecognize d section and content) In the event this informatio n is protected by the Federal Confidentiality of Alcohol and Drug Abuse Patient Records regulations: The Federal rules restrict any use of the information to criminally investigate or prosecute any alcohol or drug abuse patient.[facility] Hospital[facility] the event this information is protected by the Federal Confidentiality of Alcohol and Drug Abuse Patient Records regulations: The Federal rules restrict any use of the information to criminally investigate or prosecute any alcohol or drug abuse patient.[facility] HospitalIn the event this information is protected by the Federal Confidentiality of Alcohol and Drug Abuse Patient Records regulations: The Federal rules restrict any use of the information to criminally investigate or prosecute any alcohol or drug abuse patient.[facility] HospitalIn the event this information is protected by the Federal Confidentiality of Alcohol and Drug Abuse Patient Records regulations: The Federal rules restrict any use of the information to criminally investigate or prosecute any alcohol or drug abuse patient.[facility] HospitalIn the event this information is protected by the Federal Confidentiality of Alcohol and Drug Abuse Patient Records regulations: The Federal rules restrict any use of the information to criminally investigate or prosecute any alcohol or drug abuse patient.[facility] HospitalIn the event this information is protected by the Federal Confidentiality of Alcohol and Drug Abuse Patient Records regulations: The Federal rules restrict any use of the information to criminally investigate or prosecute any alcohol or drug abuse patient.[facility] HospitalIn the event this information is protected by the Federal Confidentiality of Alcohol and Drug Abuse Patient Records regulations: The Federal rules restrict any use of the information to criminally investigate or prosecute any alcohol or drug abuse patient.[facility] HospitalIn the event this information is protected by the Federal Confidentiality of Alcohol and Drug Abuse Patient Records regulations: The Federal rules restrict any use of the information to criminally investigate or prosecute any alcohol or drug abuse patient.[facility] HospitalIn the event this information is protected by the Federal Confidentiality of Alcohol and Drug Abuse Patient Records regulations: The Federal rules restrict any use of the information to criminally investigate or prosecute any alcohol or drug abuse patient.[facility] HospitalIn the event this information is protected by the Federal Confidentiality of Alcohol and Drug Abuse Patient Records regulations: The Federal rules restrict any use of the information to criminally investigate or prosecute any alcohol or drug abuse patient.[facility] HospitalIn the event this information is protected by the Federal Confidentiality of Alcohol and Drug Abuse Patient Records regulations: The Federal rules restrict any use of the information to criminally investigate or prosecute any alcohol or drug abuse patient.[facility] HospitalIn the event this information is protected by the Federal Confidentiality of Alcohol and Drug Abuse Patient Records regulations: The Federal rules restrict any use of the information to criminally investigate or prosecute any alcohol or drug abuse patient.[facility] HospitalIn the event this information is protected by the Federal Confidentiality of Alcohol and Drug Abuse Patient Records regulations: The Federal rules restrict any use of the information to criminally investigate or prosecute any alcohol or drug abuse patient.[facility] HospitalIn the event this information is protected by the Federal Confidentiality of Alcohol and Drug Abuse Patient Records regulations: The Federal rules restrict any use of the information to criminally investigate or prosecute any alcohol or drug abuse patient.[facility]In the event this information is protected by the Federal Confidentiality of Alcohol and Drug Abuse Patient Records regulations: The Federal rules restrict any use of the information to criminally investigate or prosecute any alcohol or drug abuse patient.[facility] HospitalIn the event this information is protected by the Federal Confidentiality of Alcohol and Drug Abuse Patient Records regulations: The Federal rules restrict any use of the information to criminally investigate or prosecute any alcohol or drug abuse patient.[facility] Reason for Visit (unrecogniz ed section [...] WITH PELVIS 2-3 VIEWS Jacob Singleton PA-C [address] [facility] [place] [address] [place] [address] Referral ID Status Reason Start Date Expiration Date V isits Requested Visits Authorized [id number] Closed Auto-Generate d Referral 12/15/2022 01/08/2024 1 1 Reason Comments Radio Gen RMP Specialty Diagnoses / Procedures Referred By Contac t Referred To Contact XR IMAGING Diagnoses Status post right hip replacement Procedures XR HIP GENERAL 3V PELV/AP/LAT RIGHT RADEX HIP UNILATERAL WITH PELVIS 2-[place] [address] [address] [place] [address] Referral ID Status Reason Start Date Expiration Date V isits Requested Visits Authorized [id number] Closed Auto-Generate d Referral 11/10/2022 12/10/2023 1 1 Referral ID Status Reason Start Date Expiration Date V isits Requested Visits Authorized [id number] Closed Auto-Generate d Referral 10/08/2022 11/07/2023 1 1 Reason Comments Foreign Body in Eye FOR RECORDS PERTAINING TO PATIENTS WHO ARE [...] BE BASED ON THE PRIMARY CLINICAL RECORDS. [employer] provides no warranty or guarantee of the accuracy or completeness of information in this document.
[2025-05-31 07:46] LABS: Hematocrit 46.3 % (42.0-54.0); Hemoglobin 15.4 g/dL (14.0-18.0); Immature Granulocytes Abs Auto 0.03 10^3/uL (0.00-0.03); Immature Granulocytes Pct Auto 0.5 % (0.0-0.5); Lymphocytes Absolute Auto 1.6 10^3/uL (1.2-3.8); Mean Corpuscular HGB Conc 33.3 g/dL (29.9-35.2); Mean Corpuscular Hemoglobin 29.1 pg (25.9-34.0); Mean Corpuscular Volume 87.4 fL (80.0-94.0); Platelet Count 142 10^3/uL (150-450); Red Blood Count 5.30 10^6/uL (4.70-6.10); White Blood Count 5.8 10^3/uL (4.0-11.0)
[2025-05-31 09:05] LABS: Alanine Aminotransferase 34 U/L (16-63); Albumin Globulin Ratio 1.1; Albumin Level 3.8 g/dL (3.4-5.0); Alkaline Phosphatase 63 U/L (46-116); Anion Gap 10.5; Aspartate Amino Transferase 25 U/L (15-37); Blood Urea Nitrogen 20.0 mg/dL (7.0-18.0); Calcium 8.9 mg/dL (8.5-10.1); Carbon Dioxide 28.5 mmol/L (21.0-32.0); Chloride 105 mmol/L (98-107); Cholesterol 188 mg/dL (<=200); Estimated GFR (African America >60 (>=60 mL/min/1.73m^2); Estimated GFR (Non-African Ame >60 (>=60 mL/min/1.73m^2); Free T3 2.87 pg/mL (2.18-3.98); Globulin 3.4 g/dL; Glucose 108 mg/dL (74-106); HDL Cholesterol 45 mg/dL (40-60); Potassium 4.0 mmol/L (3.5-5.1); Sodium 140 mmol/L (136-145); Thyroid Stimulating Hormone 1.179 uIU/mL (0.358-3.740); Total Protein 7.2 g/dL (6.4-8.2); Triglycerides 106 mg/dL (<=150); VLDL CHOLESTEROL 21.2 mg/dL
== END 2025-05-31 07:07 | disposition home or self-care (01) ==
LOC: LAB 07:08
PROVIDERS: PCP Family Medicine; Visit Provider Family Medicine
DX: Z00.00 Encounter for general adult medical examination without abnormal findings (principal)
CPT/HCPCS: 36415; 80053; 80061; 83036; 83525; 84436; 84443; 84481; 85025; G0103

== ENCOUNTER 2025-10-02 15:38 | Emergency (ER) | payer BC, SELFPAY ==
[2025-10-02 16:08] VITALS: BP 118/70; PULSE 66; TEMP 37; O2SAT 99; BMI 36.1
--- OUTSIDE RECORDS SUMMARY | 2025-10-02 18:01 | XMS_ITS | Clinical Summary ---
Author Organization [facility] Address [address] [place] [id number] Care Team Providers Care Ammonia Box Tender Name Role Phone Benjy Sinha MD Primary Care Provider [phone] Allergies No known active allergies Medications MedicationSigDispense QuantityRefillsLast FilledStart DateEnd DateStatus lisinopril (ZESTRIL, PRINIVIL) 20 mg tablet Take 1 tablet by mouth once daily.Active hydroCHLOROthiazide (HYDRODIURIL, ESIDRIX) 25 mg tablet Take 25 mg by mouth once daily.08/12/2022ctive metoprolol succinate ER (TOPROL XL) 25 mg 24 hr tablet Take by mouth once daily.09/08/2022ctive hydroCHLOROthiazide (HYDRODIURIL, ESIDRIX) 25 mg tablet 09/08/2022ctive oxyCODONE IR (ROXICODONE) 5 mg immediate release tablet Indications:Post-operative painTake 1-2 tablets by mouth every 4-6 hours as needed for pain 50 tablet 09/24/2022 4:27 PM EST09/24/2022ctive acetaminophen (TYLENOL) 500 mg tablet Take 2 tablets by mouth every 8 hours. 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 Weight reduction encouraged. S/P hip gvrofzzqdop69/20/2016History of total hip ttznrzotaft15/02/2016Primary osteoarthritis of left hip10/21/2015Hypertension Assessment & Plan (09/09/2022 2:14 PM EST): Assessment: Managed with med Date: BP: 09/09/2022 132/76 Stable. Family History Medical HistoryRelationCommentsunknown [Other]Fathercva [Other]Maternal Aunt RelationStatusCommentsFatherMaternal Aunt Social History Tobacco UseTypesPacks/DayYears UsedDateSmoking Tobacco: NeverSmokeless Tobacco: NeverAlcohol UseStandard Drinks/WeekCommentsYes0 (1 standard drink = 0.6 oz pure alcohol)monthly maybeArea Deprivation IndexAnswerDate RecordedNational Score (1-100), lower number is lower pmti618910/31/2022State Score (1-10), lower number is lower riskNot on file10/31/2022ata from: https://www.neighborhoodatlas.medicine.[facility].edu/. Last address used for ohrppxfxnwp[address]10/31/2022Sex and Gender InformationValueDate RecordedSex Assigned at BirthNot on fileLegal NdjZxpm67/16/2015 1:47 PM ESTGender Identity Not on fileSexual OrientationNot on file Last Filed Vital Signs Vital SignReadingTime TakenCommentsBlood Fojjgpib519/5209/24/2022 11:54 AM EST Fodzr728209/24/2022 11:54 AM IDGCfpiqjjgwde83.7 ??C (98.1 ??F)09/24/2022 11:54 AM ESTRespiratory Doag4321 11:54 AM ESTOxygen Cspyviyspo93%09/24/2022 11:54 AM ESTInhaled Oxygen Concentration--Bvzlgy730.8 kg (294 lb 15.6 oz)09/24/2022 6:30 AM JSXCnlzbn425.9 cm (6')09/24/2022 6:30 AM ESTBody Mass Index40.01 09/24/2022 6:30 AM EST Plan of Treatment Health MaintenanceDue DateLast DoneCommentsAnnual PCP Team Chronic Disease Visit 1981Anxiety Tqtfgskyw63/01/1981Depression Drhqwzfwq67/01/1981HIV Screening 1981Hepatitis C Wfecylphn66/01/1981Lipid Lhgwzkjws66/01/1998CT Pmynqzexfkgd85/01/2008Cologuard (FIT-DNA)07/04/20089711Ppcdxjnuolr74/01/2008 Colorectal Cancer Dfnfiqzqn40/01/2008Fecal Occult Blood2008Prostate Cancer Screening Padebjnmyn12/01/2618Zpadaptxgtslt82/01/2008Pneumococcal Vaccine: 50+ (1 of 1 - PCV)2013RSV Vaccine (1 - Risk 50-74 years 1-dose series) 2013Shingrix Vaccine (1 of 2)2013Covid-19 Vaccine (4 - 2024- season)501/12/2021, 02/05/2021, 01/15/2021Influenza Vaccine (#1) 2025Diabetes Ihvjhvslr02, 09/09/2022, 10/22/2015, Additional history existsDTaP,Tdap,Td Vaccine (2 - Tdap) Medical Devices ImplantedTypeAreaManufacturerDevice IdentifierShelf Expiration DateModel / Serial / VpkFmp-Ss-O-Kind Implant - [id number] [facility] Bone - HipBIOMET [id number] / / [id number]:Taperloc Femoral Stem Une-Eo-Q-Kind Implant - [id number] Implanted:Qty: 1 [facility]ImplantLeft: Bone - HipBIOMET 01/02/[id number] / / [id number]:Active Articulation head Biolox Delta Modular Ceramic Head 36mm Neck Type 1 Taper Std Implanted:Qty: 1 [facility]plantRight: Bone - HipZIMMER [id number] / / [id number] G7 Arcx Ofst Liner 36mm Size H Implanted:Qty: 1 [facility]23/20[facility]plantRight: Bone - HipZIMMER [id number] / / [id number] L4p-Qqwllw Tri-Brandyn Acetabular 60mm 54mm Hip - [id number] Implanted:Qty: 1 on 10/21/2015 at [facility] HipLeft: Bone - Hip BIOMET ORTHO01/02/[id number] / / [id number]:M2A Magnum Tri-Brandyn Cup Head E2i-Qbtyd Ringloc Standard Offset Cocrmo Femoral Modular 28mm Sterile - [id number] Implanted:Qty: 1 on 10/21/2015 at [facility] HipLeft: Bone - Hip BIOMET [id number] / / [id number] G7 62mm H Offset Hemisphere Osseoti Acetabular Multihole Hip - [id number] Implanted:Qty: 1 on 09/23/2022 at [facility] HipRight: Bone - Hip JOSE YPWTCHTPIC34/31/[id number] / / [id number] Taperloc 133d 13 Pps 34.3mm Femoral Type 1 Taper Complete Reduced - [id number] Implanted:Qty: 1 [facility] JOSE GBNPVMYJKD19/21/[id number] / / [id number] G7 6.5mm Dome 15mm Acetabular Low Profile Hip - [id number] Implanted:Qty: 1 on [facility]23/20[facility]wRight: Bone - HipZIMMER LTSWNVJUZH62/02/[id number] / / [id number] G7 6.5mm Dome 25mm Acetabular Low Profile - [id number] Implanted:Qty: 1 on 09/23/2022 [facility]wRight: Bone - HipZIMMER XUMQLIJNTZ47/11/[id number] / / [id number] Procedures Procedure NamePriorityDate/TimeAssociated DiagnosisCommentsBASIC METABOLIC PANEL Newelce3709/24/2022 4:43 AM EST from Last 3 Months or Most Recently Relevant to Health Maintenance Results * (ABNORMAL) BASIC METABOLIC PNL (09/24/2022 4:43 AM EST)ComponentValueRef Range Test MethodAnalysis TimePerformed AtPathologist AsrgxzqszDckluxj939(H)74 - 99 mg/dL09/24/2022 5:43 AM [facility] LABORATORYComment: The [place] Diabetes Association (ADA) provides guidance for cutoff values for fasting glucose andrandom glucose. The ADA defines fasting as no [...] [place] Diabetes Association. Diabetes Care. 2016.39(Suppl 1). WZP839 - 24 mg/dL09/24/2022 5:43 AM [facility] LABORATORYCreatinine0.95 0.73 - 1.22 mg/dL09/24/2022 5:43 AM [facility] LXTWIPTNBNFwqbpc262188 - 144 mmol/L111/25/2021 5:43 AM [facility] LABORATORYPotassium4.03.7 - 5.1 mmol/L111/25/2021 5:43 AM [facility] JTDOEOTHUTEucjompi49083 - 105 mmol/L 09/24/2022 5:43 AM [facility] WYMCKMBRYTLT32461 - 30 mmol/L111/25/2021 5:43 AM [facility] LABORATORYAnion Gap99 - 18 mmol/L111/25/2021 5:43 AM [facility] LABORATORYCalcium, Total8.78.5 - 10.2 mg/dL09/24/2022 5:43 AM [facility] LABORATORYEstimated Glomerular Filtration Rate92>=60 mL/min/1.73m 09/24/2022 5:43 AM [facility] LABORATORYComment:Estimated Glomerular Filtration Rate (eGFR) is calculated using the 2020 CKD-EPI creatinine equation. This equation utilizes serum creatinine, sex, and age as parameters. The creatinine assay has traceable calibration to isotope dilution-mass spectrometry. Refer to KDIGO guidelines for clinical interpretation. In patients with unstable renal function, e.g. those with acute kidney injury, the eGFRmay not accurately reflect actual GFR.Specimen (Source)Anatomical Location / LateralityCollection Method / VolumeCollection TimeReceived TimeBloodBLOOD SPECIMEN / UnknownVenipuncture / Pvdslou6309/24/2022 4:43 AM EST09/24/2022 5:16 AM EST Narrative Authorizing ProviderResult TypeResult StatusBenedict Niall MARTINEZ-CLABORATORYFinal ResultPerforming OrganizationAddressCity/State/ZIP CodePhone Number [facility] [address] [facility] [place] [address], from Last 3 Months or Most Recently Relevant to Health Maintenance Insurance Care Teams Team MemberRelationshipSpecialtyStart DateEnd Benjy Sinha MD PCP - [facility]08/19/15
--- OUTSIDE RECORDS SUMMARY | 2025-10-02 18:01 | XMS_ITS | Clinical Summary ---
Author Organization [facility] Address [address] [place] [address] Care Team Providers Care Remote Operations Producer Name Role Phone Benjy Sinha MD Primary Care Provider [phone] Allergies No known active allergies Medications MedicationSigDispense QuantityRefillsLast FilledStart DateEnd DateStatus apixaban (Eliquis) 5 mg tablet Take 1 tablet twice a day by oral route for 30 days.Active metoprolol succinate XL (Toprol-XL) 25 mg 24 hr tablet Take 25 mg by mouth in the morning. Do not crush or chew.Active lisinopril 40 mg tablet Take 40 mg by mouth in the morning.Active tiZANidine (Zanaflex) 4 mg tablet Take 4 mg by mouth every 6 (six) hours if needed for muscle spasms.Active blood pressure monitor kit Indications:Essential hypertension1 Units 1 (one) time for 1 dose. 1 kit 2Active amLODIPine (Norvasc) 5 mg tablet Indications:Essential hypertensionTake 1 tablet (5 mg) by mouth in the morning. 30 tablet 2Active hydroCHLOROthiazide (HYDRODiuril) 25 mg tablet Indications:Essential hypertensionTake 1 tablet (25 mg) by mouth in the morning. 90 tablet 3Active Active Problems ProblemNoted DateDiagnosed DatePre-operative cardiovascular examination, high risk fxwnejz2808/12/2022 Assessment & Plan (08/12/2022 11:06 AM EST): RCRI- 0??points Class I Risk 3.9??% 30-day risk of , [place], or cardiac arrest EKG today sinus bradycardia [...] left hip surgery he developed extensive DVT/PE. Fwjkpfsuynqr21/17/2018 Assessment & Plan (08/12/2022 11:08 AM EST): [...] patient and asked patient to take blood pressuretwice a day once in the morning once in the afternoon record on a log, goal blood pressure is 130/80 or less and patient voiced understanding. Staff will call patient next week to review blood pressures Chest pain10/28/2016Deep venous wezfqxvqrf42/25/2017 Assessment & Plan (08/12/2022 11:09 AM EST): Remains on eliquis anticoagulation Oysvfzr5810/28/2016Pulmonary qjlrdukk00/25/2017 Assessment & Plan (08/12/2022 11:08 AM EST): Remains on Eliquis anticoagulation per PCP History of total hip tyenjjluqxx39/02/2016Primary osteoarthritis of left hip 10/21/2015 Family History Medical HistoryRelationNameCommentsDeep vein thrombosisMother's SisterRelation NameStatusCommentsMother's Sister Social History Tobacco UseTypesPacks/DayYears UsedDateSmoking Tobacco: NeverSmokeless Tobacco: Never Tobacco Cessation:Counseling Given: Not Answered Alcohol UseStandard Drinks/WeekCommentsYes0 (1 standard drink = 0.6 oz pure alcohol)occasionalUT Safety & EnvironmentAnswerDate RecordedFear of Current or Ex-PartnerNot on file11/25/2023Emotionally AbusedNot on file11/25/2023hysically AbusedNot on file11/25/2023Sexually AbusedNot on file11/25/2023hysically or Sexually AbusedNot on file11/25/2023Sex and Gender InformationValueDate Recorded Sex Assigned at BirthNot on fileLegal HwqFogz2804/01/2022 11:53 PM EDTGender IdentityNot on fileSexual OrientationNot on file Last Filed Vital Signs Vital SignReadingTime TakenCommentsBlood Rzhfskfj866/9308/12/2022 10:10 AM EST Ndqjf688808/12/2022 10:10 AM ESTTemperature--Respiratory Rate--Oxygen Saturation 95%08/12/2022 10:10 AM ESTInhaled Oxygen Concentration--Brtkbb591 kg (301 lb) 08/12/2022 10:10 AM UOREqygyb609.9 cm (6')08/12/2022 10:10 AM ESTBody Mass Index 40.8208/12/2022 10:10 AM EST Plan of Treatment Health MaintenanceDue DateLast DoneCommentsCT Cbshfhwkueys1963Colonoscopy 1963Colorectal Cancer Izibbmwml1963FIT-DNA1963FIT1963 FOBT1963 9327Nicsrorgxrizh1963Depression Dwhzpyvcu99/01/1975Adult Tetanus 1985Zoster Vaccines (1 of 2)2013Influenza Vaccine (#1)2025HIB VaccinesAged OutNo longer eligible based on patient's age to complete this topic HPV VaccinesAged OutNo longer eligible based on patient's age to complete this topicIPV VaccinesAged OutNo longer eligible based on patient's age to complete this topicMeningococcal B VaccineAged OutNo longer eligible based on patient's age to complete this topicMeningococcal VaccineAged OutNo longer eligible based on patient's age to complete this topicPneumococcal Vaccine: Pediatrics (0 to 5 Years) and At-Risk Patients (6 to 64 Years)Aged OutNo longer eligible based on patient's age to complete this topicRotavirus VaccinesAged OutNo longer eligible based on patient's age to complete this topic Insurance Care Teams Team MemberRelationshipSpecialtyStart [place] [address] [place], [place] [address] [address] [facility] - Nabsrin10/9/22
--- OUTSIDE RECORDS SUMMARY | 2025-10-02 18:01 | XMS_ITS | Patient Health Record ---
Author Organization [facility] [place] Address [address] [place] [address] Care Team Providers Care Field Hockey Coach Name Role Phone Kashmir Sinha Primary Care Provider Lora Cruz Unavailable [phone] Allergies No Known Allergies Results Component Value Reference Range Notes CBC AUTO DIFF Reviewed date:03/14/2025 12:40:10 PM Interpretation: Performing Lab: Notes/Report: [facility] , White Blood Count 7.7 4.0-11.0 10 3/uL Red Blood Count5.314.70-6.10 10 6/eZNiivindrrp35.914.0-18.0 g/yJWofonulrcr14.0 42.0-54.0 %Mean Corpuscular Ltfsuh86.680.0-94.0 fLMean Corpuscular Hemoglobin 29.925.9-34.0 pgMean Corpuscular HGB Conc34.629.9-35.2 g/dLRed Cell Distribution Width13.611.0-15.0 %Platelet Bvloi984482-298 10 3/uLMean Platelet Grzewf42.09.5- 13.5 fLNeutrophils Percent Auto58.443.0-75.0 %Lymphocytes Percent Auto29.420.5- 60.0 %Monocytes Percent Auto8.51.7-12.0 %Eosinophils Percent Auto2.90.9-7.0 % Basophils Percent Auto0.40.2-2.0 %Immature Granulocytes Pct Auto0.40.0-0.5 % Neutrophils Absolute Auto4.51.4-6.5 10 3/uLLymphocytes Absolute Auto2.31.2-3.8 10 3/uLMonocytes Absolute Auto0.70.3-0.8 10 3/uLEosinophils Absolute Auto0.20.0- 0.7 10 3/uLBasophils Absolute Auto0.00.0-0.1 10 3/uLImmature Granulocytes Abs Auto0.030.00-0.03 10 3/uLPerforming Lab:see noteML - [facility] PROF CHEM 8 (BAS METB) Reviewed date:03/14/2025 12:40:10 PM Interpretation: Performing Lab: Notes/Report: [facility] [place] ,Tbsjvl098873-624 mmol/LPotassium3.63.5-5.1 mmol/PAcivxykr31936-696 mmol/LCarbon Jrckuoz22.121.0-32.0 mmol/LAnion Gap12.6Xzbfeps13112-940 mg/dLBlood Urea Ikoanttk50.07.0-18.0 mg/dLCreatinine0.970.70-1.30 mg/dLEstimated GFR ( Jenniffer>60>=60 mL/min/1.73m 2Estimated GFR (Non- Zayra>60>=60 mL/min/1.73m 2BUN Creatinine Ratio29.7Lifztwz2.48.5-10.1 mg/dLPerforming Lab:see noteML - [facility] [place] LBUA Micro, reflex to culture Reviewed date:03/14/2025 12:40:10 PM Interpretation: Performing Lab: Notes/Report: [facility] [place] ,Color UrineYELLOWYELLOWClarity UrineCLEARCLEARSpecific Marathon Urine1.010 1.005-1.025pH Urine6.05.0-9.0Protein UrineNEGATIVENEG/TRACE mg/dLGlucose Urine UANEGATIVENEGATIVE mg/dLBilirubin UrineNEGATIVENEGATIVEKetones UrineNEGATIVE NEGATIVE mg/dLBlood UrineNEGATIVENEGATIVENitrite UrineNEGATIVENEGATIVE Urobilinogen Urine1.00.2-1.0 EU/dLLeukocyte Esterase UrineNEGATIVENEGATIVEWBC UrineNONE SEENNONE SEEN #/HPFRBC UrineNONE SEEN0-2 #/HPFBacteria UrineNONE SEEN NONE SEEN #/HPFMucus UrineNONE SEENNONE SEENSquamous Epithelial Cell UrineNONE SEENNONE/RARE #/LPFCrystals Seen?None SeenNone Seen #/HPFCast Seen?NONE SEENNONE SEEN #/LPFUrine Culture IndicatedNOPerforming Lab:see noteML - [facility] [place] LBCBC AUTO DIFF Reviewed date:05/31/2025 12:30:45 PM Interpretation: Performing Lab: Notes/Report: [facility] [place] ,White Blood Count5.84.0-11.0 10 3/uLRed Blood Count5.304.70-6.10 10 6/uL Duxognzmqr12.414.0-18.0 g/cDXsofcfatec10.342.0-54.0 %Mean Corpuscular Lbtyav43.4 80.0-94.0 fLMean Corpuscular Hnrgmbspwq00.125.9-34.0 pgMean Corpuscular HGB Conc 33.329.9-35.2 g/dLRed Cell Distribution Width13.711.0-15.0 %Platelet Axbbs889 150-450 10 3/uLMean Platelet Qesqkr71.49.5-13.5 fLNeutrophils Percent Auto60.5 43.0-75.0 %Lymphocytes Percent Auto27.820.5-60.0 %Monocytes Percent Auto8.11.7- 12.0 %Eosinophils Percent Auto2.60.9-7.0 %Basophils Percent Auto0.50.2-2.0 % Immature Granulocytes Pct Auto0.50.0-0.5 %Neutrophils Absolute Auto3.51.4-6.5 10 3/uLLymphocytes Absolute Auto1.61.2-3.8 10 3/uLMonocytes Absolute Auto0.50.3-0.8 10 3/uLEosinophils Absolute Auto0.20.0-0.7 10 3/uLBasophils Absolute Auto0.00.0- 0.1 10 3/uLImmature Granulocytes Abs Auto0.030.00-0.03 10 3/uLPerforming Lab:see noteML - [facility] [place] LBFREE T3 Reviewed date:05/31/2025 12:30:45 PM Interpretation: Performing Lab: Notes/Report: [facility] [place] ,Free T32.872.18-3.98 pg/mLPerforming Lab:see note - [facility] LB GLYCOHEMOGLOBIN A1C Reviewed date:05/31/2025 12:30:45 PM Interpretation: Performing Lab: Notes/Report: [facility] [place] ,Glycohemoglobin A1C4.84.5-6.2 % ADA THERAPEUTIC TARGET < 7.0 ADA RECOMMENDED LIMIT 4.0 - 6.0 > 7.0 ACTION SUGGESTED Estimated Average Rpmngqn39Drdzpsqdrv Lab:see noteML - [facility] LB INSULIN Reviewed date:06/01/2025 12:43:59 PM Interpretation: Performing Lab: Notes/Report: [facility] ,Bdoixdw75.02.6-24.9 uIU/mL Disability Advocate: Kwame Estrella PhD, Phone: [phone] [address] [place], [place] [phone] Performed at: [facility] Performing Lab:[facility] LBLIPID PROFILE Reviewed date:05/31/2025 12:30:45 PM Interpretation: Performing Lab: Notes/Report: [facility] ,Oeyezhrvzyovs506<=150 mg/mXAugayguhfxz851<=200 mg/dLHDL Lqmhtycjonq2554-70 mg/dL <40 mg/dl - HIGH CARDIOVASCULAR RISK > or =60 mg/dl - LOW CARDIOVASCULAR RISK LDL Cholesterol Wentjthokl204.8 <100 mg/dl OPTIMAL >190 mg/dl VERY HIGH 160-189 mg/dl HIGH 100-129 mg/dl NEAR OR ABOVE OPTIMAL 130-159 mg/dl BORDERLINE HIGH VLDL CWBKYRNXJDQ99.2Chol HDL Ratio4.2 4.4 - 7.1 AVERAGE RISK 3.3 - 4.4 LOW RISK >11.0 HIGH RISK 7.1 - 11.0 MODERATE RISK Performing Lab:see note - [facility] LBPROF 14(COMP METB) Reviewed date:05/31/2025 12:30:45 PM Interpretation: Performing Lab: Notes/Report: [facility] ,Dtbcqt615018-862 mmol/LPotassium4.03.5-5.1 mmol/SQylwnbqj21942-240 mmol/LCarbon Nffxbrj00.521.0-32.0 mmol/LAnion Gap10.4Rsqjgbm33199-396 mg/dLBlood Urea Upmtbscg61.07.0-18.0 mg/dLCreatinine1.030.70-1.30 mg/dLEstimated GFR ( Jenniffer>60>=60 mL/min/1.73m 2Estimated GFR (Non- Zayra>60>=60 mL/min/1.73m 2BUN Creatinine Ratio19.7Dgzewew9.98.5-10.1 mg/dLBilirubin Total1.30.2-1.0 mg/dL Aspartate Amino Jrvtxhgpqfe7074-24 U/LAlanine Ptechvdespnjprjw4162-38 U/L Alkaline Hulfzdrgolf6443-160 U/LTotal Protein7.26.4-8.2 g/dLAlbumin Level3.83.4- 5.0 g/dLGlobulin3.4Albumin Globulin Ratio1.1Performing Lab:see noteML - [facility] LBPSA SCREENING Reviewed date:05/31/2025 12:30:45 PM Interpretation: Performing Lab: Notes/Report: [facility] ,Prostate Specific Antigen Scrn0.97<=4.00 ng/mLPerforming Lab:see noteML - [facility] LBT4 Reviewed date:05/31/2025 12:30:45 PM Interpretation: Performing Lab: Notes/Report: [facility] ,T4 Thyroxine8.604.50-12.10 ug/dLPerforming Lab:see note - [facility] LBTSH Reviewed date:05/31/2025 12:30:45 PM Interpretation: Performing Lab: Notes/Report: [facility] ,Thyroid Stimulating Hormone1.1790.358-3.740 uIU/mLPerforming Lab:see noteML - [facility] LB Reason For Referral No Information Medications Medication SIG (Take, Route, Frequency, Duration) Notes Start Date End Date Status hydroCHLOROthiazide 25 MG TAKE 1 TABLET BY MOUTH EVERY DAY FOR 30 DAYS; Duration: 90 ActiveLancets 33G -Use 1 lancet to monitor glucose once daily DX E11.9; Duration: 90 days04/07/2024ctiveEliquis 5 MGTAKE 1 TABLET BY MOUTH TWICE A DAY; Duration: 30ActiveBlood Glucose Meter -Use monitor to monitor glucose once daily DX E11.9; Duration: 365 days04/07/2024ctiveLisinopril 40 MGTAKE 1 TABLET BY MOUTH EVERY DAY IN THE MORNING; Duration: 30 daysActiveMetoprolol Succinate ER 25 MGTAKE 1 TABLET BY MOUTH EVERY DAY FOR 90 DAYS; Duration: 90ActiveTest Strips -Use 1 strip to monitor glucose via meter once daily DX E11.9; Duration: 90 days 4Active Immunizations Vaccine Route Administration Date Status Comme nts Tdap (Boostrix) Unknown 03/25/2025 Administered Social History Tobacco Use: Social History Observation Description Date Details (start date - stop date) Never Smoker NA - NA Tobacco Use/Smoking Question Answer Notes Patient is a nonsmoker Alcohol Screen (Audit-C) Question Answer Notes Did you have a drink containing alcohol in the p ast year? No Ljwaib4WthrfibxmycemeXxuoridrXAVHH-S (Standard) Question Answer Notes Did you have a drink containing alcohol in the p ast year? No Iohltt3SfqrpvfcmthibpMiwlijzo Problems Problem Type SNOMED Code ICD Code Onset Dates Problem Status W/U Status Risk Notes Problem Peripheral venous in sufficiency (77690869) Venous insufficiency (chronic) (peripheral) (I87.2) ActiveconfirmedProblemHypertension (33766091)Hypertension (I10)Activeconfirmed ProblemEdema (43523921)Edema (R60.9)ActiveconfirmedProblemWell adult (755704186) Well adult (Z00.00)ActiveconfirmedProblemCellulitis (826293942)Cellulitis (L03.90)ActiveconfirmedProblemDiabetic neuropathy (752309894)Diabetic neuropathy (E11.40)ActiveconfirmedProblemDiverticular disease of colon (519019650) Diverticular disease of colon (K57.30)ActiveconfirmedProblemNon-pressure chronic ulcer left lower leg, 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)ActiveconfirmedProblem Ulcer of left lower leg (05740805576673020)Leg ulcer, left (L97.929)Active confirmedProblemChronic ulcer of left lower leg (disorder) (95136370050172114) Chronic ulcer of left leg, limited to breakdown of skin (L97.921)Activeconfirmed ProblemDiabetes mellitus (90329911)Diabetes mellitus (E11.9)Activeconfirmed Vital Signs Blood pressure diastolic 68 mm Hg 10/02/2025 Jfuadu14 in10/02/2025lood pressure eponxczn878 mm Hg10/02/20252316Rwwewi771.4 lbs 10/02/2025BMI38.36 kg/m210/02/2025 Encounters Encounter Location Date Provider Diagnosis [facility] [address] [place] [address] 10/02/2025 Lora Cruz Hand laceration S61.419A [facility] [address] [place] [address] 05/22/2025 Kashmir Prieto Well adult Z00.00 an d Diabetic neuropathy E11.40 [facility] [address] [place] [address] 03/14/2025 Kashmir Sinha [facility] [place] [address] [facility] [place] [address]/28/2025Kashmir Sinha Assessments Encounter Date Diagnosis (ICD Code) Assessment Notes Treatment Notes Treatment Clinical Notes Section Notes 05/22/2025 Well adult (ICD-10 - Z00.00) 05/22/2025Diabetic neuropathy (ICD-10 - E11.40)10/02/2025Hand laceration (ICD-10 - S61.419A) sent to ER for eval xray, IV abx? Plan Of Treatment Pending Test Test Name Order Date CMP (COMPLETE METABOLIC PANEL) 3 CMP (COMPLETE METABOLIC PANEL) 4 CMP (COMPLETE METABOLIC PANEL) 4 HEMOGLOBIN A1C (GLYCO) 03/06/2024 HEMOGLOBIN A1C (GLYCO) 03/17/2023 HEMOGLOBIN A1C (GLYCO) 05/22/2025 INSULIN, TOTAL 05/22/2025 INSULIN, TOTAL 03/17/2023 LIPID PANEL (CHOL/TRIG/HDL/LDL) 03/17/20 23 LIPID PANEL (CHOL/TRIG/HDL/LDL) 05/22/20 25 LIPID PANEL (CHOL/TRIG/HDL/LDL) 03/06/20 24 CBC WITH DIFF (EXP 08/2025) 03/06/2024 CBC WITH DIFF (EXP 08/2025) 03/17/2023 PSA, PROSTATE-SPECIFIC ANTIGEN 3 URIC ACID 03/17/2023 STOOL OCCULT BLOOD 03/06/2024 VL Extremity Venous Duplex Lower Right 0 04/04/2024 BNP 03/17/2023 CBC AUTO DIFF 04/04/2024 CRP 04/04/2024 SED RATE WESTERGREN 04/04/2024 US KARENA DOP LEG RT 04/04/2024 THYROID PANEL (T4/TSH/FREE T3) 5 THYROID PANEL (T4/TSH/FREE T3) 3 THYROID PANEL (T4/TSH/FREE T3) 4 VC VENOUS REFLUX MARIAELENA LMT 03/17/2023 PSA, SCREENING 03/06/2024 PSA, SCREENING 05/22/2025 CT lower leg LT wo con 12/24/2023 CMP (COMP MET CABA) w/eGFR CKD-EPI 2024 CBC WITH DIFF 05/22/2025 Insurance Providers Payer Name Payer Address Payer Phone Subscriber Number Group Number Insured Name Patient Relationship to Insured Coverage Start Date Coverage End Date [employer] [address] [place] [address] [id number] Jean Carlos Holloway - patient is the insured Medications Administered Medication Instructions Date of Administration Dosage Notes Ceftriaxone 1 gram g1 gram Medical (General) History Medical History History ICD Code Hypertension I10 Diverticular disease of colon K57.30 Chest pain R07.9 Thrombophlebitis I80.9 Plantar fascia syndrome M72.2 Near syncope R55 Edema R60.9 Duodenitis K29.80 Hand laceration S61.419A Surgical History Surgery Date(Month/Year) Left Hip Replacement 10/21/15 Cholecystectomy 2008
--- OUTSIDE RECORDS SUMMARY | 2025-10-02 18:01 | XMS_ITS | Clinical Summary ---
Author Organization [facility] Address [address] [place] [address] Phone Care Team Providers Care Acid Etch Operator Name Role Phone Unavailable Primary Care Provider Unavailabl e Social History Tobacco UseTypesPacks/DayYears UsedDateSmoking Tobacco: Never AssessedSex and Gender InformationValueDate RecordedSex Assigned at BirthNot on fileLegal Sex Male08/28/2022 10:27 PM ESTGender IdentityNot on fileSexual OrientationNot on file Plan of Treatment Not on file
--- OUTSIDE RECORDS SUMMARY | 2025-10-02 18:01 | XMS_ITS | Clinical Summary ---
Author Organization [facility] Address [address] [place] [address] Care Team Providers Care Service Electrician Name Role Phone Benjy Sinha MD Primary Care Provider [phone] Allergies No known active allergies Medications MedicationSigDispense QuantityRefillsLast FilledStart DateEnd DateStatus Eliquis 5 MG tablet Take 5 mg by mouth in the morning and 5 mg before bedtime.Active Blood Glucose Monitoring Suppl (True Metrix Meter) w/Device kit TEST ONCE A DAY04/07/2024ctive erythromycin (Romycin) 5 MG/GM ophthalmic ointment 5Active True Metrix Blood Glucose Test test strip TEST ONCE A DAY07/11/2024ctive lisinopril 40 MG tablet Take 40 mg by mouth in the morning.Active metoprolol succinate XL (Toprol-XL) 25 MG 24 hr tablet TAKE 1 TABLET BY MOUTH EVERY DAY FOR 90 DAYSActive prednisoLONE acetate (Pred-Forte) 1 % ophthalmic suspension Indications:Foreign body of right cornea, initial encounterAdminister 1 drop into the right eye in the morning and 1 drop at noon and 1 drop in the evening and 1 drop before bedtime. 5 mL 5Active Active Problems ProblemNoted DateDiagnosed DateForeign body of right pzmjas1403/26/2025 Family History Medical HistoryRelationNameCommentsCataractsMotherRelationNameStatusComments Mother Social History Tobacco UseTypesPacks/DayYears UsedDateSmoking Tobacco: NeverSmokeless Tobacco: Never Tobacco Cessation:Counseling Given: Not Answered Sex and Gender InformationValueDate RecordedSex Assigned at BirthNot on file Legal CtqWbas4412/16/2022 6:39 PM EDTGender IdentityNot on fileSexual Orientation Not on file Plan of Treatment Health MaintenanceDue DateLast DoneCommentsCT Ubicbvehanvn1963Colonoscopy 1963Colorectal Cancer Dsogtdviq1963FIT-DNA1963FIT1963 FOBT1963 1778Puaslghduwxhw1963Influenza Vaccine (#1)2025 Pneumococcal Vaccine: Pediatrics (0 to 5 Years) and At-Risk Patients (6 to 64 Years)Aged OutNo longer eligible based on patient's age to complete this topic Insurance Care Teams Team MemberRelationshipSpecialtyStart DateEnd Benjy Sinha MD [address] [place] [phone] PCP - GeneralFamily Medicine03/26/25
--- OUTSIDE RECORDS SUMMARY | 2025-10-02 18:03 | XMS_ITS | CCD ---
Author Organization [facility] CliniSynh Care Team Providers Care Software Programmer Name Role Phone MD Danielle Hernandez Primary Care Provider [phone] DO Brendon Mcnamraa Emergency Provider Danielle Hernandez MD Primary Care Provider [phone] COURTNEY ROSAS Attending Unavailable Danielle Hernandez MD Primary Care Provider [phone] MARY, DR SANTOS Primary Care Unavailable HOY, [...] Unavailable Danielle Hernandez MD Primary Care Provider [phone] JACOB SINGLETON Referring Unavailable HOY, DANIELLE M Primary Care Unavailable HOY, DANIELLE M Primary Care Unavailable ROBERT KAHN Referring Unavailable ROBERT KAHN Attending Unavailable KUSHAL CHRISTIAN Referring Unavailable HOY, DANIELLE M Primary Care Unavailable KUSHAL CHRISTIAN Attending Unavailable DANIELLE HERNANDEZ M Primary Care Unavailable KUSHAL CHRISTIAN Referring Unavailable HOYDANIELLE Primary Care Unavailable ROBERT KAHN Attending Unavailable JACOB SINGLETON Attending Unavailable MARY DANIELLE M Primary Care Unavailable MARYDANIELLE M Primary Care Unavailable AKOSUADANIELLE Bridges M Primary Care Unavailable AKOSUADANIELLE Bridges M Primary Care Unavailable JACOB SINGLETON Referring Unavailable MARYPEREZDANIELLE M Primary Care Unavailable ROBERT KAHN Referring Unavailable JACOB SINGLETON Referring Unavailable MARYDANIELLE M Primary Care Unavailable MARYDANIELLE M Primary Care Unavailable ROBERT KAHN Referring Unavailable JACOB SINGLETON Attending Unavailable MARYDANIELLE M Primary Care Unavailable ROBERT KAHN Attending Unavailable ROBERT KAHN Referring Unavailable MARYDANIELLE M Primary Care Unavailable ROBERT KAHN Referring Unavailable Danielle Hernandez MD Primary Care Provider [phone] Danielle Hernandez MD Primary Care Provider [phone] DARREL CABRERA Attending Unavailable DARREL CABRERA Attending Unavailable Medications Current Medications MedicationDrug Class(es)DatesSig (Normalized)Sig (Original)Blood Glucose Monitoring Suppl (True Metrix Meter) w/Device kit (3 sources)Start: 24-07-9870Sckmz Glucose Monitoring Suppl (True Metrix Meter) w/Device kit TEST ONCE A DAY 04/07/2024 Activeerythromycin 0.005 mg/mg ophthalmic ointment (3 sources)Macrolide, Macrolide AntimicrobialStart: 90-80-2780bopwokjopyti (Romycin) 5 MG/GM ophthalmic ointment 03/25/2025 Activelisinopril 20 mg oral tablet (19 sources)Angiotensin Converting Enzyme InhibitorStart: 22-38-7090vtth 1 tablet by mouth once dailylisinopril (ZESTRIL, PRINIVIL) 20 mg tablet Take 1 tablet by mouth once daily. 0 10/14/2015 Activetake 1 tablet by mouth in the morninglisinopril 40 MG tablet Take 40 mg by mouth in the morning. ActiveComment on above:Take 1 tablet by mouth once daily.prednisoLONE acetate 10 mg/ml ophthalmic suspension (1 source)CorticosteroidStart: 95-77-6729punfeimoWGHG acetate (Pred-Forte) 1 % ophthalmic suspension Indications: Foreign body of right cornea, initial encounter Administer 1 drop into the right eye in the morning and 1 drop at noon and 1 drop in the evening and 1 drop before bedtime. 5 mL 03/28/2025 Active Completed/Discontinued Medications MedicationDrug Class(es)DatesSig (Normalized)Sig (Original)acetaminophen 500 mg oral tablet (6 sources)Start: 86-02-9107mzzs 2 tablets by mouth every eight hours acetaminophen (TYLENOL) 500 mg tablet Take 2 tablets by mouth every 8 hours. 180 tablet 0 09/24/2022 ActiveComment on above:Take 2 tablets by mouth every 8 hours.amLODIPine 5 mg oral tablet (6 sources)Dihydropyridine Calcium Channel BlockerStart: 39-17-1156naqy 1 tablet by mouth once dailyamLODIPine (NORVASC) 5 mg tablet Take 1 tablet by mouth once daily. 30 tablet 1 10/14/2015 ActiveComment on above:Take 1 tablet by mouth once daily.amoxicillin 500 mg oral capsule (5 sources)Penicillin-class AntibacterialStart: 29-29-4219qabfmljnuof (POLYMOX, AMOXIL) 500 mg capsule Take 4 capsules 1 hour prior to dentist 12 capsule 1 ActiveComment on above:Take 4 capsules 1 hour prior to dentistapixaban 5 mg oral tablet (6 sources)Factor Xa InhibitorStart: 06-74-6494FHVRAIM 5 mg tab(s) Take by mouth twice daily. 0 09/08/2022 ActiveComment on above:Take by mouth twice daily. hydroCHLOROthiazide 25 mg oral tablet (18 sources)Thiazide DiureticStart: 08-12-2022 End: 27-52-3381yjpxvYWAEUAcqonuokj (HYDRODIURIL, ESIDRIX) 25 mg tabletComment on above:Take 25 mg by mouth once daily.24 hr metoprolol succinate 25 mg extended release oral tablet (12 sources)beta-Adrenergic BlockerStart: 02-39-9941vzoi 1 tablet by mouth once dailymetoprolol succinate ER (TOPROL XL) 25 mg 24 hr tablet Take by mouth once daily. 0 09/08/2022 ActiveComment on above:Take by mouth once daily.oxyCODONE hydrochloride 5 mg oral tablet (6 sources)Opioid AgonistStart: 56-01-6118pmaj 1 tablet by mouth every four to six hours as neededoxyCODONE IR (ROXICODONE) 5 mg immediate release tablet Indications: Post-operative pain Take 1-2 tablets by mouth every 4-6 hours as needed for pain 50 tablet 0 09/24/2022 ActiveComment on above:Take 1-2 tablets by mouth every 4-6 hours as needed for pain Problems Active Problems Problem ClassificationProblemDateDocumented DateEpisodic/ChronicConditions associated with dizziness or vertigo (1 source)Lightheadedness; Translations: [Dizziness and giddiness]02-12-2022 EpisodicConditions associated with dizziness or vertigo (1 source)Conditions associated with dizziness or vertigo; Translations: [R42 - Dizziness and giddiness]Onset: 68-90-1905Pciybclnth heart failure; nonhypertensive (1 source)Unspecified diastolic (congestive) heart failure; Translations: [UNSPECIFIED DIASTOLIC HEART FAILURE]Onset: 09-05-6974VklkxpsFucsldotc hypertension (19 sources)Hypertensive disorder; Translations: [Essential (primary) hypertension]Onset: 744417-36-5321AuhinwfPknywipq; including migraine (4 sources)Migraine, unspecified, not intractable, without status migrainosus; Translations: [MIGRAINE UNS NOTINTRACT W/O SM]Onset: 56-72-3775Teotivt Osteoarthritis (20 sources)Osteoarthritis of left hip joint; Translations: [Unilateral primary osteoarthritis, left hip]Onset: 886040-80-4889ZgizmcoQqexz connective tissue disease (17 sources)History of total hip arthroplasty; Translations: [Presence of unspecified artificial hip joint]Onset: 351517-33-4442EffluyiZedjm connective tissue disease (20 sources)History of repair of hip joint; Translations: [Presence of unspecified artificial hip joint]Onset: 304135-69-9354TqwnewtOmxeq connective tissue disease (1 source)History of total replacement of left hip joint; Translations: [Presence of left artificial hip joint]ChronicOther connective tissue disease (1 source)Presence of right artificial hip joint; Translations: [Status post right hip replacement]Onset: 41-13-5447PvcysofUtkao injuries and conditions due to external causes (5 sources)Foreign body in right cornea; Translations: [Foreign body in cornea, right eye, initial encounter]Onset: 255019-21-7211AlhimivqQvwcf nervous system disorders (1 source)Other acute postprocedural pain; Translations: [Post-operative pain] Onset: 28-37-1887ZvqfhtxgHkzya nutritional; endocrine; and metabolic disorders (9 sources)Obesity; Translations: [Obesity, unspecified]Onset: 09-09-2022 10-17-8925FjfwglvZjokf nutritional; endocrine; and metabolic disorders (6 sources)Body mass index 40+ - severely obese; Translations: [Morbid (severe) obesity due to excess calories]Onset: 394811-48-8819AtfgyhyQrzkiogh codes; unclassified (1 source)Pain; Translations: [Pain, unspecified]29-78-1444MmpcqinbDwhjiomzupy; intervertebral disc disorders; other back problems (1 source)Other intervertebral disc degeneration, thoracolumbar region; Translations: [[facility] IV DISC DEGEN THORACOLUMBAR RGN]Onset: 97-51-2270Zvbljed Past or Other Problems Problem ClassificationProblemDateDocumented DateEpisodic/ChronicAbdominal pain (4 sources)Unspecified abdominal pain; Translations: [UNSPECIFIED ABDOMINAL PAIN]Onset: 04-48-7418MompnwjrIdfnx aftercare (1 source)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; Translations: [LONG-TERM CURRNT USE ANTICOAGULANTS]Onset: 65-55-6589TudzdpxrXhntp aftercare (1 source)Other buttermaker helper (current) drug therapy; Translations: [OT SHIRT SORTER CURRENT DRUG THERAPY]Onset: 73-07-6738LmuxhetmDqcxz aftercare (9 sources)Drug therapy finding; Translations: [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]Onset: 800882-94-1823AuwdpmksPdvvh gastrointestinal disorders (1 source)Other specified diseases of intestine; Translations: [OTHER SPECIFIED DISEASES INTESTINE]Onset: 83-72-3733JcoktajzZbayhokkl; thrombophlebitis and thromboembolism (12 sources)H/O: Deep vein thrombosis; Translations: [Personal history of other venous thrombosis and embolism]Onset: 32-07-8016OrobnbqxEsjpppdqa heart disease (1 source)Personal history of pulmonary embolism; Translations: [PERSONAL HISTORY PULMONARY EMBOLISM]Onset: 11-60-9821OdrfhxyoSdewndhe codes; unclassified (1 source)Pain, unspecified; Translations: [Pain]Onset: 58-08-6469Zzukmwox Syncope (4 sources)Syncope and collapse; Translations: [SYNCOPE AND COLLAPSE]Onset: 93-54-7094Mocuntdj Results Test NameValueInterpretationReference RangeFacilityCNOVon 41-47-5913RMFHTtqeqb Visit (ORAVON) GUY HOLLOWAY ([id number]) 1965 M Date Time Provider Department 12/15/22 2:30 PM ROBERT KAHN During your visit [...] of dental prophy Referring Provider: ROBERT KAHN [[id number]] Allergies As of Date: 12/15/2022 (No Known Allergies) Date Reviewed: 12/15/2022 Reviewed by: Connie Bennett MA - Fully Assessed Reason for Visit: Post Op [174] Primary Visit Diagnosis:Status post right hip replacement [Z96.641] Order(s):XR HIP GENERAL 3V PELV/AP/LAT RIGHT [[id number]] Order #: [id number] FUTURE Prescriptions as of 12/15/2022 - amoxicillin [...] Text Encounter Status:Closed by ROBERT KAHN on 12/15/22[facility] Panel Informationon 53-49-2200Jmvdxttcy ClinicXR HIP 3V PELV+ AP/LAT RTon 65-28-7292BP HIP 3V PELV+ AP/LAT RT* * *Final Report* * * DATE OF [...] and pubic symphysis. No other significant abnormality. IMPRESSION: Right total hip arthroplasty in place with no evidence of complications. Dressmaker Helper: RONNELL Transcribe Date/Time: Dec 15 2022 2:03P Dictated by : RACHEL NICHOLE MD This examination was interpreted and the report reviewed and electronically signed by: RACHEL NICHOLE MD on Dec 15 2022 2:04PM EST [id number] HospitalOVon 84-08-3386MJMY Office Visit (ORAVON) GUY HOLLOWAY ([id number]) 1965 M Date Time Provider Department 11/10/22 [...] at month 3. Referring Provider: ROBERT KAHN [[id number]] Allergies As of Date: 11/10/2022 (No Known Allergies) Date Reviewed: 11/10/2022 Reviewed by: Connie Bennett MA - Fully Assessed Reason for Visit: Post Op [174] Primary Visit Diagnosis:Status post right hip replacement [Z96.641] Order(s):XR HIP GENERAL 3V PELV/AP/LAT RIGHT [[id number]] Order #: [id number] FUTURE Prescriptions as of 11/10/2022 - amoxicillin [...] 09/23/2022 Encounter Status:Closed by ROBERT KAHN on 11/10/22[facility] No Panel Informationon 32-70-6936Hyjhchidb ClinicXR HIP 3V PELV+ AP/LAT RTon 53-10-6649RK HIP 3V PELV+ AP/LAT RT* * *Final Report* * * DATE OF [...] on the right. No other significant abnormality. IMPRESSION: Right total hip arthroplasty in place with intact hardware. Dressmaker Helper: PSCB Transcribe Date/Time: Nov 10 2022 3:49P Dictated by : RACHEL NICHOLE MD This examination was interpreted and the report reviewed and electronically signed by: RACHEL NICHOLE MD on Nov 10 2022 3:52PM EST [id number] [facility] Regional Hospital 41-50-0924ARFV Office Visit (GEE) GUY HOLLOWAY ([id number]) 1965 M Date Time Provider Department 10/09/22 [...] Jacob Singleton PA-C Referring Provider: ROBERT KAHN [[id number]] Allergies As of Date: 10/09/2022 (No Known Allergies) Date Reviewed: 10/09/2022 Reviewed by: Connie Bennett MA - Fully Assessed Reason for Visit: Post Op [174] Primary Visit Diagnosis:Status post right hip replacement [Z96.641] Order(s):XR HIP GENERAL 3V PELV/AP/LAT RIGHT [[id number]] Order #: [id number] FUTURE amoxicillin (POLYMOX, AMOXIL) 500 mg capsuleTake [...] dentist Encounter Status:Closed by JACOB SINGLETON on 10/09/22NormalCadams county regional medical centerand Person [facility] HospitalNo Panel Informationon 54-85-0260Bouffobcs ClinicXR HIP 3V PELV+ AP/LAT RTon 02-02-1148IK HIP 3V PELV+ AP/LAT RT* * *Final Report* * * DATE OF [...] on the right. No other significant abnormality. IMPRESSION: Right total hip arthroplasty in place with intact hardware. Dressmaker Helper: RONNELL Transcribe Date/Time: Oct 09 2022 10:17A Dictated by : RACHEL NICHOLE MD This examination was interpreted and the report reviewed and electronically signed by: RACHEL NICHOLE MD on Oct 09 2022 10:18AM EST [id number] Health Behavioral Medical CenterBagood [facility] metabolic 2000 panel on 46-21-0295Vcexr gap [Moles/Vol]9 mmol/LNormal9-18Avon HospitalComment on above:Order Comment: Specimen Type: BLOOD SPECIMENOrdering Facility: [facility] Address:[address] [place] [address]Flqkabxrp By: #### 11955-8 ####[facility] LABORATORYCLIA [id number] [facility] [address] [place] AMERICACalcium [Mass/Vol]8.7 mg/dLNormal 8.5-10.2Avon HospitalComment on above:Order Comment: Specimen Type: BLOOD SPECIMENOrdering Facility: [facility] Address:[address] [place], [place] [address]Performed By: #### 53225-9 ####[facility] LABORATORYCLIA [id number] [place] [address] [place] AMERICAChloride [Moles/Vol]101 mmol/GKtyeyk19-590Hgfl HospitalComment on above:Order Comment: Specimen Type: BLOOD SPECIMENOrdering Facility: [facility] Address:[address] [place] [address] Performed By: #### 67392-7 ####[facility] LABORATORYCLIA [id number] [place] [address] [place] AMERICACO2 [Moles/Vol]27 mmol/DDilbpw55-05Nugs HospitalComment on above:Order Comment: Specimen Type: BLOOD SPECIMENOrdering Facility: [facility] Address:[address] [place], [place] [address]Performed By: #### 82976-2 ####[facility] LABORATORYCLIA [id number] [place] [address] [place] AMERICACreatinine [Mass/Vol]0.95 mg/dLNormal0.73-1.22Av Hospital Comment on above:Order Comment: Specimen Type: BLOOD SPECIMENOrdering Facility: [facility] Address:[address] [place] [address] Performed By: #### 06174-8 ####[facility] LABORATORYCLIA [id number] [place] [address] [place] AMERICAESTIMATED GLOMERULAR FILTRATION RATE92 mL/min/1.73m???Normal>=60Av HospitalComment on above:Order Comment: Specimen Type: BLOOD SPECIMENOrdering Facility: [facility] Address:[address] [place], [place] [address]Result Comment: Estimated Glomerular Filtration Rate (eGFR) is calculated using the 2020 CKD-EPI creatinine equation. This equation utilizes serum creatinine, sex, and age as parameters. The creatinine assay has traceable calibration to isotope dilution-mass spectrometry. Refer to KDIGO guidelines for clinical interpretation. In patients with unstable renal function, e.g. those with acute kidney injury, the eGFR may not accurately reflect actual GFR.Performed By: #### 03560-3 ####[facility]OSPITALIA [id number] [place] [address] [place] AMERICAGlucose [Mass/Vol]115 mg/sWDhnh43-48 Pindall HospitalComment on above:Order Comment: Specimen Type: BLOOD SPECIMENOrdering Facility: [facility] Address:[address] [id number] Comment: The [place] Diabetes Association (ADA) provides guidance for cutoff [...] Standards of Medical Care in Diabetes 2016, [place] [employer]. Diabetes Care. 2016.39(Suppl 1).Performed By: #### 32072-9 ####[facility] HOSPITALIA [id number] [place] [address] [place] AMERICAPotassium [Moles/Vol]4.0 mmol/LNormal3.7-5.1Avo HospitalComment on above:Order Comment: Specimen Type: BLOOD SPECIMENOrdering Facility: [facility] Address:[address] [place] [address]Depuwtjqd By: #### 90085-7 ####[facility] HOSPITALIA [id number] [place] [address] [place] Sodium [Moles/Vol]137 mmol/HRjyabu032-220Inpu HospitalComment on above:Order Comment: Specimen Type: BLOOD SPECIMENOrdering Facility: [facility] Address:[address]Performed By: #### 42763-0 ####[facility] HOSPITALIA [id number] [place] [address] MARY'S MEDICAL CENTERUrea nitrogen [Mass/Vol]15 mg/dL Normal9-24Av HospitalComment on above:Order Comment: Specimen Type: BLOOD SPECIMENOrdering Facility: [facility] Address:[address] [place], [place] [address]Performed By: #### 84978-1 ####[facility] HOSPITALIA [id number] [place] [address] [facility] HOSPITALCBC panel Auto (Bld)on 74-54-7764Nxgyrvxmuet distribution width (RBC) [Ratio]13.5 %Ceycjz63.5-15.0Av HospitalComment on above:Order Comment: Specimen Type: BLOOD SPECIMENOrdering Facility: [facility] Address:[address] [place], [place] [address]Performed By: #### 04729-9 ####[facility] [id number] [place] [address] [facility] REHABILITATION HOSPITALHematocrit (Bld) [Volume fraction]40.1 %Normal 39.0-51.0Av HospitalComment on above:Order Comment: Specimen Type: BLOOD SPECIMENOrdering Facility: [facility] Address:[address] [place], [place] [address]Performed By: #### 06530-8 ####[facility] HOSPITALIA [id number] [place] [address] [place] STATES GREAT LAKES HEALTH SYSTEMHemoglobin (Bld) [Mass/Vol]13.5 g/kGMzmvdm43.0-17.0Av HospitalComment on above:Order Comment: Specimen Type: BLOOD SPECIMENOrdering Facility: [facility] Address:[address] [place], [place] [address]Performed By: #### 88208-8 ####[facility] LABORATORYIA [id number] [place] [address] [facility] (RBC) [Entitic mass]28.7 pqNtasua37.0-34.0Av HospitalComment on above:Order Comment: Specimen Type: BLOOD SPECIMENOrdering Facility: [facility] Address:[address] [place], [place] [address]Performed By: #### 01797-1 ####[facility] LABORATORYCLIA [id number] [place] [id number] [facility] (RBC) [Mass/Vol]33.7 g/dLNormal 30.5-36.0Av HospitalComment on above:Order Comment: Specimen Type: BLOOD SPECIMENOrdering Facility: [facility] Address:[address] [place], [place] [address]Performed By: #### 94156-2 ####[facility] LABORATORYCLIA [id number] [place] [id number] [facility] (RBC) [Entitic vol]85.3 bKFbyapx15.0-100.0Av Hospital Comment on above:Order Comment: Specimen Type: BLOOD SPECIMENOrdering Facility: [facility] Address:[address] [place] [address] Performed By: #### 95799-7 ####[facility] LABORATORYIA [id number] [address] RBC (Bld) [#/Vol]10*3/uLNormal<0.01Av HospitalComment on above:Order Comment: Specimen Type: BLOOD SPECIMENOrdering Facility: [facility] Address:[address] [place], [place] [address]Performed By: #### 70679-6 ####[facility] LABORATORYIA [id number] [place] [address] REG[facility] REHABIL[facility]ATION HOSPITALPlatelet mean volume (Bld) [Entitic vol]10.2 fLNormal9.0-12.7 Emerita HospitalComment on above:Order Comment: Specimen Type: BLOOD SPECIMENOrdering Facility: [facility] Address:[address]Performed By: #### 81319-7 ####[facility] LABORATORYIA [id number] [place] [address] [facility] RE[facility]IL[facility] HOSPITALPlatenorth adams [facility] (d) [#/Vol]186 10*3/zEOmqges259-912Ejfm Hospital Comment on above:Order Comment: Specimen Type: BLOOD SPECIMENOrdering Facility: [facility] Address:[address] Performed By: #### 86005-6 ####[facility] LABORATORYIA [id number] [place] [address] [facility] ([facility]) [#/Vol] 4.70 10*6/uLNormal4.20-6.00Av HospitalComment on above:Order Comment: Specimen Type: BLOOD SPECIMENOrdering Facility: [facility] Address:[address]Performed By: #### 63093-1 ####[facility] HOSPITALIA [id number] [place] [address] [facility] ([facility]) [#/Vol]11.78 10*3/uLHigh3.70-11.00Pindall HospitalComment on above:Order Comment: Specimen Type: BLOOD SPECIMENOrdering Facility: [facility] Address:[address] [place], [place] [address]Performed By: #### 45919-6 ####[facility] HOSPITALIA [id number] [place] [address] [facility] CNDSon 40-72-3064UABBSJS ID: [id number] Author: Itzel Berry PA-C Service: Orthopaedic Surgery Author Type: Physician Executive Chef Type: Discharge Summary Filed: 09/24/2022 11:49 AM [...] pain Qty: 50 tablet Refills: 0 Associated Diagnoses:Post-operative pain docusate sodium (COLACE) 100 mg Take [...] Dept Phone 10/09/2022 8:00 AM JACOB SINGLETON [phone] 11/06/2022 2:15 PM ROBERT KAHN [phone] Plan discussed with attending Orthopaedic surgeon Dr. Kahn , will addend as needed. I spent 35 minutes in the visit, with more than 50% of the total ojxt-ei-yxop time of the visit in counseling / coordination of care. SIGNATURE: Itzel Berry PA-C PATIENT NAME: Guy Holloway DATE: 09/24/22 TIME: 9:21 [facility] HospitalTHERAP[facility] NTon 04-74-4880VIRFBPG NTHNO ID: [id number] Author: Talia Lee, PT, DPT Service: Physical Therapy Author Type: Physical Therapist Type: Therapy (PT/OT/Speech/Resp) Filed: 09/24/2022 12:29 PM Note Text: Physical Therapy Treatment SERVICE DATE: 09/24/2022 SERVICE TIME: 1200 to 1223 ROOM: [place] [address] Recommended Discharge Disposition: Home PT Recommended Discharge Disposition Comments: Cleared to discharge home from PT standoint. Will have son assist at home for stair negotiation to enter + DME use Anticipated Discharge Needs: Physical Assist at Home;Equipment Physical Assist at Home for: Cleaning;Laundry;Stairs;Safety;Self Care;Shopping;Transportation Recommended Discharge Equipment: No equipment needs anticipated PT 6 Clicks Score: 23 Precautions/Activity Restrictions: Weight Bearing Restrictions;Fall Risk;Total Hip Replacement;Lines/Tubes/Drains Precaution/Activity Restriction Comments: IV Extremity With Weight [...] Impairment;Balance Impaired Treatment Interventions: Education;Functional Mobility Training;Balance Training;Strengthening;Joint Mobility Plan for next visit: Gait training, Sit to Stand Transfers, Fall prevention, Stairs training Home Environment Patient Lives With: Self/Alone;Other: See Comment Comments: 2 story house Assistance Available: Part-Time;Other: See Comment Comments: Mom will stay with him for 1-2 weeks; Has 2 children living near by 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 Entry To Home: Stairs;Without Rail [...] 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); + 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 Baseline Cognition: Oriented to self;Oriented to place;Oriented [...] stance decreased;Step length decreased;Weight bearing decreased General Deviations/Observations: Antalgic gait;Difficulty changing direction/turning;UE weight bearing on assistive nigel (more content not included)...[facility] NTHNO ID: [id number] Author: Cheyanne Morillo OT/L Service: Occupational Therapy Author Type: Occupational Therapist Type: Therapy (PT/OT/Speech/Resp) Filed: 09/24/2022 10:44 AM Note Text: Occupational Therapy Evaluation SERVICE DATE: 09/24/2022 SERVICE TIME: 1007 to 1030 ROOM: [place] [address] Recommended Discharge Disposition: Home OT Recommended Discharge Disposition Comments: pt would benefit from Home OT to assess safety completing ADLs within home environment and continued adherence to hip precautions Anticipated Discharge Needs: Physical Assist at Home;Equipment Physical Assist at Home for: Cleaning;Laundry;Stairs;Safety;Self Care;Shopping;Transportation Recommended Discharge Equipment: No equipment needs anticipated OT 6 Clicks Score: 24 Precautions/Activity Restrictions: Weight Bearing Restrictions;Fall Risk;Total Hip Replacement;Lines/Tubes/Drains Precaution/Activity Restriction Comments: IV Extremity With Weight [...] Pain;Safety Deficits;Impaired Self Care;Decreased Activity Tolerance;Balance Impaired Cognition/Communication Deficits Responsiveness: Alert, Agitated, Awake Follows Commands: 3-step Commands Treatment Interventions: Self Care / Home Management;Education;Energy Conservation Training;Functional Mobility Training Home Environment Patient Lives With: Self/Alone;Other: See Comment Comments: 2 story house Assistance Available: Part-Time;Other: See Comment Comments: Mom will stay with him for 1-2 weeks; Has 2 children living near by 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 Entry To Home: Stairs;Without Rail [...] 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); + 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 Baseline Cognition: Oriented to self;Oriented to time;Oriented to place Occupational Factors Life Roles: 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;Friend;Parent Identified Strengths: Good Support System;Involvement in Hobbies/Leisure [...] with: Patient TREATMENT INTERVENTIONS: Therapy Diagnosis: Reduced mobility-other;Decreased activities of daily living (ADL) Interventions Provided: Evaluation;Self Fci M (more content not included)...[facility] ID: [id number] Author: Talia Lee, PT, DPT Service: Physical Therapy Author Type: Physical Therapist Type: Therapy (PT/OT/Speech/Resp) Filed: 09/24/2022 9:36 AM Note Text: Physical Therapy Treatment SERVICE DATE: 09/24/2022 SERVICE TIME: 838 to 925 ROOM: [place] [address] Recommended Discharge Disposition: Home PT Recommended Discharge Disposition Comments: 1 additional PT visit this date is required for re-training on stair negotiation to ensure safe d/c to home Anticipated Discharge Needs: Physical Assist at Home Physical Assist at Home for: Cleaning;Laundry;Stairs;Safety;Self Care;Shopping;Transportation Recommended Discharge Equipment: No equipment needs anticipated PT 6 Clicks Score: 23 Precautions/Activity Restrictions: Weight Bearing Restrictions;Fall Risk;Total Hip Replacement;Lines/Tubes/Drains Precaution/Activity Restriction Comments: IV Extremity With Weight [...] Impairment;Balance Impaired Treatment Interventions: Education;Functional Mobility Training;Balance Training;Strengthening;Joint Mobility Plan for next visit: Stairs training Home Environment Patient Lives With: Self/Alone;Other: See Comment Comments: 2 story house Assistance Available: Part-Time;Other: See Comment Comments: Mom will stay with him for 1-2 weeks; Has 2 children living 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 by 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 Entry To Home: Stairs;Without Rail [...] 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); + 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 Patient Report: Feeling better this morning, I [...] stance decreased;Step length decreased;Weight bearing decreased General Deviations/Observations: Antalgic gait;Difficulty changing direction/turning;UE weight bearing on assistive device excessive JH-HLM: 7: Walk 25 feet or more Learning/Educational Needs: Discharge Plan;Disease Proce (more content not included)...NormalPindall HospitalANES POSTPROC EVALon [id number] POSTPROC EVAL HNO ID: [id number] Author: Aniya Lamb MD Service: Anesthesiology Author [...] September 23, 2022 TIME: 3:39 PM CSN: [id number] [facility] PRE-OPon [id number] PRE-OPHNO ID: [id number] Author: Aniya Lamb MD Service: Anesthesiology Author [...] and consent discussed: yes. Patient / Responsible Green Party agrees to proceed: yes Patient / Surrogate [...] September 23, 2022 TIME: 6:38 AM CSN: [id number] [facility] NOon 09-23-2022 OPERATIVE NOHNO ID: [id number] Author: Robert Kahn MD Service: Orthopaedic Surgery Author Type: Physician Type: Operative Report Filed: 09/23/2022 10:26 AM Note Text: OPERATIVE/PROCEDURE REPORT LOG ID: [id number] SURGERY/PROCEDURE DATE: 09/23/2022 INCISION/PROCEDURE START TIME: 9:25 AM INCISION CLOSE/PROCEDURE END TIME: 1045 SURGEON(S)/PROCEDURALIST(S) AND INTERFACE CONTROL OFFICER(S): Surgeon(s) and Role: * Robert Kahn MD - Primary Physician Executive Chef: Abelardo Tierney PA-C SURGERY/PROCEDURE(S): Right total hip [...] No qualified resident/fellow was available. Abelardo Tierney [facility] was 1st assist. I performed the operation with assistance. No qualified resident was available. A commercial loan assistant was necessary for safe patient positioning, protection of tissue, retraction, and suture management. The assistant professor of communication provided final wound closure, bandage application, and transfer of the patient to the recovery room. SIGNATURE: Robert Kahn MD PATIENT NAME: Guy Holloway DATE: September 23, 2022 TIME: 10:22 AMNFormerly Botsford General HospitalURGICAL PATHOLOGYon [id number] REPORT [facility] SouthComment on above:Order Comment: Specimen Type: SPECIMEN FROM BONEOrdering Facility: [facility] Address: [place] [address]Klabvu Comment: Surgical Pathology Report Case: [id number] Authorizing Provider: Robert Kahn MD Collected: 09/23/2022 09:28 AM Ordering Location: [facility] Surgery Received: 09/23/2022 10:47 AM Pathologist: Danie Irby MD Specimen: FEMORAL HEAD RIGHT, right femoral headPerformed By: #### S ####[facility] LABCLIA [id number] [address] Comment on above:Order Comment: Specimen Type: SPECIMEN FROM BONEOrdering Facility: [facility] Address: [address] [place], [place] [address]Result Comment: Femoral head, right, arthroplasty: -Pre-op diagnosis: Primary osteoarthritis of right hip [M16.11]Performed By: #### S ####[facility] LABIA [id number] [address] StreetComment on above:Order Comment: Specimen Type: SPECIMEN FROM BONEOrdering Facility: [facility] Address: [address] [place] [address] Result Comment: Right femoral head, arthroplasty: - Degenerative joint disease with subchondral cyst formation. - Mild chronic synovitis, nonspecific. Performed By: #### S ####[facility] LABCLIA [id number] [address] StreetComment on above:Order Comment: Specimen Type: SPECIMEN FROM BONEOrdering Facility: [facility] Address: [address] [place], [place] [address]Result Comment: Diagnostic interpretation performed at [facility], [address] [id number] CLIA# [id number] Holistic Nutritionist: Augie Cruz M.D.Performed By: #### S ####[facility] LABCLIA [id number] [address] StreetComment on above:Order Comment: Specimen Type: SPECIMEN FROM BONEOrdering Facility: [facility] Address: [address] [place] [address] Result Comment: A. FEMORAL HEAD RIGHT Received in formalin, labeled right femoral head is a femoral head measuring approximately 7.3 x 5.8 x 5.3 cm. The articular surface shows an area of eburnation. Recognizable cartilage appears roughened and severe osteophyte formation is present. The femoral head is cut with a band saw, revealinghard, trabecular bone beneath areas of eburnation. Several subchondral cysts are present, measuringup to 1.0 cm in diameter. No grossly necrotic bone is identified. Employment Legal Assistant sections are submitted, as follows: A1: Articulating surface, following decalcification A2: Non-articulating, peripheral surface, following decalcification A3: Soft tissue from femoral neck A4: Subchondral cysts, following decalcification AKA September 23, 2022 4:02 PM Gross examination performed at [facility], [facility] [place], [place] [address]Performed By: #### S ####[facility] LABCLIA [id number] [address] THERAPY NTon [id number] NTHNO ID: [id number] Author: Talia Lee, PT, DPT Service: Physical Therapy Author Type: Physical Therapist Type: Therapy (PT/OT/Speech/Resp) Filed: 09/23/2022 5:15 PM Note Text: Physical Therapy Evaluation SERVICE DATE: 09/23/2022 SERVICE TIME: 1625 to 1706 ROOM: [place] [address] Recommended Discharge Disposition: Home PT Recommended Discharge Disposition Comments: Anticipate with further recovery patient will progress to Home PT Anticipated Discharge Needs: Physical Assist at Home Physical Assist at Home for: Cleaning;Laundry;Stairs;Safety;Self Care;Shopping;Transportation Recommended Discharge Equipment: No equipment needs anticipated PT 6 Clicks Score: 18 Precautions/Activity Restrictions: Weight Bearing Restrictions;Fall Risk;Total Hip Replacement;Lines/Tubes/Drains Precaution/Activity Restriction Comments: IV Extremity With Weight [...] Impairment;Balance Impaired Treatment Interventions: Education;Functional Mobility Training;Balance Training;Strengthening;Joint Mobility Plan for next visit: Fall prevention, Gait training, Exercise instruction/handout, Pre-gait activities Home Environment Patient Lives With: Self/Alone;Other: See Comment Comments: 2 story house Assistance Available: Part-Time;Other: See Comment Comments: Mom will stay with him for 1-2 weeks; Has 2 children living near by 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 Entry To Home: Stairs;Without Rail [...] 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); + 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 Patient Report: I am pretty tired, and [...] Transfer Blank pradhan indicate activity not attempted -HLM: 4: Move to chair / commode Learning/Educational Needs: Discharge Plan;Disease Process;Functional Activities/Mobility;Pain Management;Changes in Plan of Care;Precautions;PT In-Hospital Exercise [...] gait and mobility-other Interventions Provided: Evaluation;Therapeutic Activity (69026);Therapeutic Exercise (56586) $ Evaluation-Moderate (29828) Billed Units: 1 unit Therapeutic Exercise (08486) Treatment Minutes: 14 $ Therapeutic Exercise (25513) Billed Units: 1 unit Ankle Pumps (number of reps): 10 Quad Sets (number of reps): 10 Glut Sets (number of reps): 10 (more content not included)...[facility] SouthXR PELVIS 1V APon 64-98-0831BL PELVIS 1V AP* * *Final Report* * * DATE OF EXAM: Sep 23 2022 11:47AM VHX 5239 - XR PELVIS 1V AP / PROCEDURE REASON: Post-operative / post-procedure assessment, asymptomatic * * * * Physician Interpretation * * * * EXAMINATION: PELVIS Clinical history: Status post arthroplasty Views: AP radiograph Comparison: Comparison is made May 20 RESULT: A right total hip arthroplasty is seen. Alignment is normal. No gross fracture is observed. Ilioischial and iliopectineal lines are intact. IMPRESSION: Status post hip arthroplasty, normal alignment Dressmaker Helper: RONNELL Transcribe Date/Time: Sep 23 2022 12:17P Dictated by : MARILUZ TERRY MD This examination was interpreted and the report reviewed and electronically signed by: MARILUZ TERRY MD on Sep 23 2022 12:17PM EST [id number]_IDCSIACNNormalBrigham City Community Hospital [id number] (GEE) GUY HOLLOWAY ([id number]) 1965 M Date Time Provider Department 09/10/22 ROBERT KAHN SHELLIEEMERITA During your visit today, we recorded the [...] off of 3 months. Letter faxed to [facility] [facility] [employer]-patient's employer. Allergies As of Date: 09/10/2022 (No Known Allergies) Date Reviewed: 09/09/2022 Reviewed by: Mary Kate Welsh APRN.MASTER PLUMBER - Fully Assessed Reason for Visit: Patient Question [5577] Prescriptions as of 09/10/2022 - ELIQUIS 5 [...] 09/09/2022 Encounter Status:Closed by SANDRA ELMORE on 09/10/22NormSelect Medical Specialty [facility] W Auto Differential panel (Bld)on 86-67-6452Ilirgbuao (Bld) [#/Vol] 0.05 10*3/uLNormal<0.11CHolzer Hospital on above:Order Comment: Specimen Type: BLOOD SPECIMENOrdering Facility: [facility] Address:[address] [place], [place] [address]Performed By: #### 55331-2 ####[facility] LABIA [id number] [place] [address] [place] AMERICABasophils/100 WBC (Bld)0.6 %Normal [facility] on above:Order Comment: Specimen Type: BLOOD SPECIMENOrdering Facility: [facility] Address:[address] [place], [place] [address]Performed By: #### 73656-7 ####[facility] LABIA [id number] [place] [address] [place] AMERICADifferential cell count method Nom (Bld)AutoNoGalion Hospital on above:Order Comment: Specimen Type: BLOOD SPECIMENOrdering Facility: [facility] Address:[address] [place], [place] [address]Performed By: #### 30679-7 ####[facility] LABIA [id number] [place] [address] [place] AMERICAEosinophils (Bld) [#/Vol]0.16 10*3/uLNormal<0.46[facility] on above:Order Comment: Specimen Type: BLOOD SPECIMENOrdering Facility: [facility] Address:[address] [place], [place] [address]Performed By: #### 35045-1 ####[facility] LABCLIA [id number] [place] [address] [place] AMERICAEosinophils/100 WBC (Bld)2.0 %NormalKettering Health Behavioral Medical Center Comment on above:Order Comment: Specimen Type: BLOOD SPECIMENOrdering Facility: [facility] Address:[address] [place] [address] Performed By: #### 77908-7 ####[facility] LABIA [id number] [place] [address] [place] AMERICAErythrocyte distribution width (RBC) [Ratio]13.7 %Ljugkv38.5-15.0[facility] Comment on above:Order Comment: Specimen Type: BLOOD SPECIMENOrdering Facility: [facility] Address:[address] [place] [address] Performed By: #### 95835-5 ####[facility] LABIA [id number] [place] [address] [place] AMERICAHematocrit (Bld) [Volume fraction]47.2 %Zzjnmb80.0-51.0[facility] Behavioral Medical CenterComment on above:Order Comment: Specimen Type: BLOOD SPECIMENOrdering Facility: [facility] Address:[address] [place], [place] [address]Performed By: #### 62216-2 ####[facility] LABIA [id number] [place] [address] [place] AMERICAHemoglobin (Bld) [Mass/Vol]16.3 g/kGBcexlv74.0-17.0[facility]al Medical CenterComment on above: Order Comment: Specimen Type: BLOOD SPECIMENOrdering Facility: [facility] Address:[address] [place], [place] [address]Performed By: #### 70491-6 ####[facility] LABCLIA [id number] [place] [address] [place] AMERICAImmature granulocytes (Bld) [#/Vol]0.04 10*3/uLNormal<0.10[facility] on above: Order Comment: Specimen Type: BLOOD SPECIMENOrdering Facility: [facility] Address:[address] [place], [place] [address]Performed By: #### 40215-1 ####[facility] LABCLIA [id number] [place] [address] [place] AMERICAImmature granulocytes/100 WBC (Bld)0.5 %NormalKettering Health Main Campus on above: Order Comment: Specimen Type: BLOOD SPECIMENOrdering Facility: [facility] Address:[address] [place], [place] [address]Performed By: #### 38327-9 ####[facility] LABIA [id number] [place] [address] [place] AMERICALymphocytes (Bld) [#/Vol]2.15 10*3/uLNormal1.00-4.00[facility] on above: Order Comment: Specimen Type: BLOOD SPECIMENOrdering Facility: [facility] Address:[address] [place], [place] [address]Performed By: #### 58881-1 ####[facility] LABIA [id number] [place] [address] [place] AMERICALymphocytes/100 WBC (Bld)27.1 %NormalKettering Health Main Campus on above:Order Comment: Specimen Type: BLOOD SPECIMENOrdering Facility: [facility] Address:[address] [place], [place] [address]Performed By: #### 63564-5 ####[facility] LABCLIA [id number] [place] [address] [place] AMERICAMC (RBC) [Entitic mass]29.1 pgNormal 26.0-34.0[facility] on above:Order Comment: Specimen Type: BLOOD SPECIMENOrdering Facility: [facility] Address:[address] [place], [place] [address]Performed By: #### 76823-8 ####[facility] LABCLIA [id number] [address] (RBC) [Mass/Vol]34.5 g/qHNgeubl44.5-36.0[facility] on above:Order Comment: Specimen Type: BLOOD SPECIMENOrdering Facility: [facility] Address:[address] [place], [place] [address]Performed By: #### 55191-5 ####[facility] LABCLIA [id number] [address] STATES OF [facility] (RBC) [Entitic vol]84.1 yQZljzxn70.0-100.0[facility] on above:Order Comment: Specimen Type: BLOOD SPECIMENOrdering Facility: [facility] Address:[address] [place], [place] [address]Performed By: #### 88912-0 ####[facility] LABCLIA [id number] [place] [address] [place] Monocytes (Bld) [#/Vol]0.78 10*3/uLNormal<0.87[facility] on above:Order Comment: Specimen Type: BLOOD SPECIMENOrdering Facility: [facility] Address:[address] [place] [address] Performed By: #### 25661-3 ####[facility] LABCLIA [id number] [place] [address] [place] AMERICAMonocytes/100 WBC (Bld)9.8 %NormalKettering Health Main Campus on above:Order Comment: Specimen Type: BLOOD SPECIMENOrdering Facility: [facility] Address:[address] [place], [place] [address]Performed By: #### 08342-2 ####[facility] LABIA [id number] [place] [address] [place] AMERICANeutrophils (Bld) [#/Vol]4.76 10*3/uL Normal1.45-7.50[facility] on above:Order Comment: Specimen Type: BLOOD SPECIMENOrdering Facility: [facility] Address:[address] [place], [place] [address]Performed By: #### 93871-1 ####[facility] LABIA [id number] [place] [address] [place] AMERICANeutrophils/100 WBC (Bld)60.0 %Normal [facility] Medical Centerment on above:Order Comment: Specimen Type: BLOOD SPECIMENOrdering Facility: [facility] Address:[address] [place], [place] [address]Performed By: #### 00345-7 ####[facility] LABIA [id number] [place] [address] [place] AMERICANucleated RBC (Bld) [#/Vol]10*3/uLNormal<0.01[facility] on above:Order Comment: Specimen Type: BLOOD SPECIMENOrdering Facility: [facility] Address:[address] [place], [place] [address]Performed By: #### 21346-3 ####[facility] LABIA [id number] [place] [address] [place] Nucleated RBC/100 WBC (Bld) [Ratio]0.0 /100 WBCNormalCKettering Health Springfield Comment on above:Order Comment: Specimen Type: BLOOD SPECIMENOrdering Facility: [facility] Address:[address] [place], [place] [address] Performed By: #### 30028-7 ####[facility] LABCLIA [id number] [place] [address] [place] AMERICAPlatelet mean volume (Bld) [Entitic vol]10.1 fLNormal9.0-12.7CHolzer Hospital on above:Order Comment: Specimen Type: BLOOD SPECIMENOrdering Facility: [facility] Address:[address] [place] [address] Performed By: #### 40930-8 ####[facility] LABCLIA [id number] [place] [address] [place] AMERICAPlatelets (Bld) [#/Vol]197 10*3/fHLkvesk321-336WbfzsrwvaKettering Health [facility] Campus on above: Order Comment: Specimen Type: BLOOD SPECIMENOrdering Facility: [facility] Address:[address] [place], [place] [address]Performed By: #### 05275-3 ####[facility] LABCLIA [id number] [place] [address] [place] AMERICARBC (Bld) [#/Vol]5.61 10*6/uLNormal4.20-6.00[facility] on above:Order Comment: Specimen Type: BLOOD SPECIMENOrdering Facility: [facility] Address:[address] [place], [place] [address]Performed By: #### 61804-5 ####[facility] LABCLIA [id number] [place] [address] [place] AMERICAWBC (Bld) [#/Vol]7.94 10*3/uLNormal 3.70-11.00[facility] on above:Order Comment: Specimen Type: BLOOD SPECIMENOrdering Facility: [facility] Address:[address] [place], [place] [address]Performed By: #### 28135-9 ####[facility] LABCLIA [id number] [place] [address] [place] AMERICAComprehensive metabolic 2000 panelon 77-71-1865Umjxhrq [Mass/Vol]4.4 g/dLNormal3.9-4.9CHolzer Hospital on above:Order Comment: Specimen Type: BLOOD SPECIMENOrdering Facility: [facility] Address:[address] [place], [place] [address]Performed By: #### 09532-7, 70231-7 ####[facility] LABCLIA [id number] [place] [address] [place] AMERICAALP [Catalytic activity/Vol]80 U/JByuhpg14-298RbpyjgszrKettering Health [facility] Campus on above:Order Comment: Specimen Type: BLOOD SPECIMENOrdering Facility: [facility] Address:[address] [place], [place] [address]Performed By: #### 31933-1, 20384-7 ####[facility] LABCLIA [id number] [place] [address] [place] AMERICAALT [Catalytic activity/Vol]25 U/ASslcjf76-71HggrqghcxKettering Health [facility] Campus on above:Order Comment: Specimen Type: BLOOD SPECIMENOrdering Facility: [facility] Address:[address] [place], [place] [address]Performed By: #### 06006-1, 13490-9 ####[facility] LABCLIA [id number] [place] [id number] [place] AMERICAAnion gap [Moles/Vol]11 mmol/LNormal9-18[facility] on above:Order Comment: Specimen Type: BLOOD SPECIMENOrdering Facility: [facility] Address:[address] [place], [place] [address]Performed By: #### 36598-0, 17222-9 ####[facility] LABCLIA [id number] [facility] [address] [place] [address] [place] AMERICAAST [Catalytic activity/Vol]22 U/LBdpxsm66-40CopyhqogdKettering Health Main Campus on above:Order Comment: Specimen Type: BLOOD SPECIMENOrdering Facility: [facility] Address:[address] [place], [place] [address]Performed By: #### 07196-5, 72767-5 ####[facility] LABCLIA [id number] [facility] [id number] [place] [address] [place] AMERICABilirubin [Mass/Vol]0.9 mg/dLNormal0.2-1.3CHolzer Hospital on above:Order Comment: Specimen Type: BLOOD SPECIMENOrdering Facility: [facility] Address:[address] [place], [place] [address]Performed By: #### 07558-6, 56392-7 ####[facility] LABCLIA [id number] [facility] [address] [place] [address] [place] AMERICACalcium [Mass/Vol]9.8 mg/dLNormal8.5-10.2CHolzer Hospital on above:Order Comment: Specimen Type: BLOOD SPECIMENOrdering Facility: [facility] Address:[address] [place], [place] [address]Performed By: #### 39402-6, 04912-9 ####[facility] LABCLIA [id number] [facility] [id number] [place] [address] [place] AMERICAChloride [Moles/Vol]101 mmol/TUldbhk21-693JujnqvulhKettering Health [facility] Campus on above:Order Comment: Specimen Type: BLOOD SPECIMENOrdering Facility: [facility] Address:[address] [place], [place] [address]Performed By: #### 15298-9, 71047-4 ####[facility] LABCLIA [id number] [place] [address] [place] AMERICACO2 [Moles/Vol]27 mmol/L Sfzzbi48-24RszgbsdfaKettering Health Main Campus on above:Order Comment: Specimen Type: BLOOD SPECIMENOrdering Facility: [facility] Address:[address] [place], [place] [address]Performed By: #### 87840-0, 93309-5 ####[facility] LABCLIA [id number] [place] [address] [place] AMERICACreatinine [Mass/Vol]1.09 mg/dLNormal 0.73-1.22[facility] on above:Order Comment: Specimen Type: BLOOD SPECIMENOrdering Facility: [facility] Address:[address] [place], [place] [address]Performed By: #### 99193-1, 20488-0 ####[facility] LABIA [id number] [place] [address] [place] AMERICAESTIMATED GLOMERULAR FILTRATION RATE78 mL/min/1.73m???Normal>=60[facility] on above:Order Comment: Specimen Type: BLOOD SPECIMENOrdering Facility: [facility] Address:[address] [place], [place] [address]Result Comment: Estimated Glomerular Filtration Rate (eGFR) is calculated using the 2020 CKD-EPI creatinine equation. This equation utilizes serum creatinine, sex, and age as parameters. The creatinine assay has traceable calibration to isotope dilution- mass spectrometry. Refer to KDIGO guidelines for clinical interpretation. In patients with unstable renal function, e.g. those with acute kidney injury, the eGFR may not accurately reflect actual GFR.Performed By: #### 94748-7, 97798-6 ####[facility] LABCLIA [id number] [place] [address] [place] OF AMERICAGlucose [Mass/Vol]102 mg/vNYwdo65-12 [facility] on above:Order Comment: Specimen Type: BLOOD SPECIMENOrdering Facility: [facility] Address:[address]Result Comment: The [place] Diabetes Association (ADA) provides guidance for cutoff [...] Standards of Medical Care in Diabetes 2016, [place] [employer]. Diabetes Care. 2016.39(Suppl 1).Performed By: #### 91260-0, 90830-9 ####[facility] LABCLIA [id number] [place] [address] [place] AMERICAPotassium [Moles/Vol]3.8 mmol/LNormal 3.7-5.1CHolzer Hospital on above:Order Comment: Specimen Type: BLOOD SPECIMENOrdering Facility: [facility] Address:[address] [place], [place] [address]Performed By: #### 23697-5, 75383-6 ####[facility] LABCLIA [id number] [place] [address] [place] AMERICAProtein [Mass/Vol]7.0 g/dLNormal6.3-8.0[facility] on above:Order Comment: Specimen Type: BLOOD SPECIMENOrdering Facility: [facility] Address:[address] [place], [place] [address]Performed By: #### 40631-4, 82961-9 ####[facility] LABCLIA [id number] [place] [address] [place] AMERICASodium [Moles/Vol]139 mmol/VWossof791-995Ymwrcgpeu Clinic ClevelandComment on above:Order Comment: Specimen Type: BLOOD SPECIMENOrdering Facility: [facility] Address:[address] [place], [place] [address]Performed By: #### 99334-6, 21283-1 ####[facility] LABCLIA [id number] [place] [address] [place] AMERICAUrea nitrogen [Mass/Vol]19 mg/dLNormal9-24[facility] on above:Order Comment: Specimen Type: BLOOD SPECIMENOrdering Facility: [facility] Address:[address] [place], [place] [address]Performed By: #### 58803-2, 23825-7 ####[facility] LABCLIA [id number] [place] [address] [place] AMERICAFerritin SerPl-mCncon 96-42-1853Bbnicxjt [Mass/Vol]435.0 ng/mL Zmgkkd00.3-565.7CHolzer Hospital on above:Order Comment: Specimen Type: BLOOD SPECIMENOrdering Facility: [facility] Address:[address] [place], [place] [address]Performed By: #### 2276-4 ####[facility] LABCLIA [id number] [place] [address] [place] OF AMERICAHISTORY PHYSICALon 09-09-2022 HISTORY PHYSICALHNO ID: [id number] Author: Mary Kate Welsh APRN.MASTER PLUMBER Service: ? Author Type: Nurse Practitioner Type: [...] fevers. Neurological: No history of TIA's, stroke, COFFEE SOMMELIER tumor, impaired sensorium, hemiplegia, paraplegia or quadraplegia. No neurological symptoms or problems. Respiratory: No history of current cough or dyspnea, or pneumonia in the past 6 weeks. No history of respiratory/pulmonary symptoms or problems. Cardiovascular: Positive for: anticoagulation therapy, DVT/PE and hypertension Negative for: CAD, chest pain, hyperlipidemia, recent NC and murmur/valvular heart disease. GI: No history [...] symptoms or problems. Hematology: Positive for: chronic anti-coagulation/platelet meds. Patient is on anti-coagulation/platelet medication(s): DOAC. Negative for: anemia and thrombocytopenia. [...] Prior to Admission medications as of 09/09/22 8585 Medication Sig Last Dose Taking ELIQUIS 5 [...] no joint swelling or clubbing. 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 Neurological: normal cognition a (more content not included)...NormalKettering Health Behavioral Medical CenterIron and Iron binding capacity panelon 15-71-3927Lecw [Mass/Vol] 74 ug/vOWrgusk34-974MingvmckjKettering Health Behavioral Medical CenterComment on above:Order Comment: Specimen Type: BLOOD SPECIMENOrdering Facility: [facility] Address:[address]Performed By: #### 69528-5, 61132-6 ####[facility] LABCLIA [id number] [facility] [place] [address] [place] AMERICAIron binding capacity [Mass/Vol]341 ug/xYVpggqu195-316BzhcwfesqKettering Health [facility] on above:Order Comment: Specimen Type: BLOOD SPECIMENOrdering Facility: [facility] Address:[address]Performed By: #### 13846-7, 81521-0 ####[facility] LABCLIA [id number] [place] [address] [place] AMERICAIron/TIBC [Molar ratio] 21.7 %Tqkmap81.0-57.0[facility] on above:Order Comment: Specimen Type: BLOOD SPECIMENOrdering Facility: [facility] Address:[address] [place], [place] [address]Performed By: #### 42096-0, 38945-7 ####[facility] LABCLIA [id number] [place] [address] [place] AMERICATYPE AND SCREEN,30 DAYon 48-31-5592ALJDGtnwhuGgyeolnxbHolzer Hospital on above:Order Comment: Specimen Type: BLOOD SPECIMENOrdering Facility: [facility] Address:[address] [place], [place] [address]Performed By: #### TSCR30 ####CC MAIN BLOOD BANKCLIA [id number] [place] [address], [place] [address] [place] AMERICAHISTORICAL AB SCR STATUSNegativeNormalCHolzer Hospital on above:Order Comment: Specimen Type: BLOOD SPECIMENOrdering Facility: [facility] Address:[address]Performed By: #### TSCR30 ####CC MAIN BLOOD BANKCLIA [id number] [place] [address] [place] AMERICARh Nom (Bld)PositiveNormalCOhioHealth Grove City Methodist Hospitalment on above: Order Comment: Specimen Type: BLOOD SPECIMENOrdering Facility: [facility] Address:[address] [id number] By: #### TSCR30 ####CC MAIN BLOOD BANKCLIA [id number] [address]ETCNPNon [id number] (LOPTRM) GUY HOLLOWAY ([id number]) 1965 M Date Time Provider Department 09/08/22 ROBERT KAHN During your visit today, we recorded the following information about you: Jania Lema Pss 09/08/2022 3:30 PM Signed LVM for patient to call with the name and phone number of facility he would like to go to for outpatient PT. Talia Buckleyrk 09/09/2022 11:55 AM Signed Patient returning call with PT information requested, [facility] [address] FAX:[phone] Jania Lema Pss 09/16/2022 3:51 PM Signed Patient is scheduled at [facility] in [place] on 09/29 at 4:00 Allergies As of [...] 01/22/2016 Encounter Status:Closed by JANIA WILKINSON on 09/08/22[facility] CenterALBUMINon 98-35-3226Wwadjti [Mass/Vol]3.9 g/dLNormal3.4-5.0The [facility] HospitalComment on above:Performed By: #### CMP, ALB #### [facility] [address] [place] [address] Dr. Kaylen Brown AUTO DIFFon 66-01-0483XMDH #0.1 103/ulNormal0.0-0.1[facility] DaytonComment on above:Performed By: #### CMP, ALB #### [facility] [address] [place] [address] Dr. Kaylen Condonsophils/100 WBC (Bld)0.8 %Normal0.2-2.0[facility] Comment on above:Performed By: #### CMP, ALB #### [facility] [address] [place] [address] Dr. Kaylen Ramon #0.2 103/ulNormal0.0-0.7The [facility] HospitalComment on above: Performed By: #### CMP, ALB #### [facility] [address] [place] [address] Dr. Kaylen Hawkinsosinophils/100 WBC (Bld)2.1 %Normal0.9-7.0[facility] Comment on above:Performed By: #### CMP, ALB #### [facility] [address] [place] [address] Dr. Kaylen Hawkinsrythrocyte distribution width (RBC) [Ratio]13.9 %Umpubn57.0-15.0 The [facility] HospitalComment on above:Performed By: #### CMP, ALB #### [facility] [address] [place] [address] Dr. Kaylen TejedaHematocrit (Bld) [Volume fraction]44.8 %Ilxuky67.0-54.0The [facility] HospitalComment on above:Performed By: #### CMP, ALB #### [facility] [address] [place] [address] Dr. Kaylen TejedaHemoglobin (Bld) [Mass/Vol]15.3 g/wTBljoew29.0-18.0The [facility] Hospitalment on above:Performed By: #### CMP, ALB #### [facility] [address] [place] [address] Dr. Kaylen Dick #0.04 10e3/ulCritically high0.00-0.03The [facility] Comment on above:Performed By: #### CMP, ALB #### [facility] [address] [place] [address] Dr. Kaylen Dick %0.5 %Normal0.0-0.5The [facility] Hospitalment on above: Performed By: #### CMP, ALB #### [facility] [address] [place] [address] Dr. Kaylen SummersH #2.5 103/ulNormal1.2-3.8The [facility] Hospitalment on above:Performed By: #### CMP, ALB #### [facility] [address] [place] [address] Dr. Kaylen Summershocytes/100 WBC (Bld)29.1 %Clehnn55.5-60.0The [facility] Hospitalment on above:Performed By: #### CMP, ALB #### [facility] [address] [place] [address] Dr. Kaylen GillespieUAL DIFF REQNONormalThe [facility] HospitalComment on above: Performed By: #### CMP, ALB #### [facility] [address] [place] [address] Dr. Kaylen Quiles (RBC) [Entitic mass]28.8 lxBogwzg46.9-34.0The [facility] HospitalComment on above:Performed By: #### CMP, ALB #### [facility] [address] [place] [address] Dr. Kaylen Quiles (RBC) [Mass/Vol]34.2 g/uSZbudsa17.9-35.2The [facility] HospitalComment on above:Performed By: #### CMP, ALB #### [facility] [address] [place] [address] Dr. Kaylen Quiles (RBC) [Entitic vol]84.2 dZWbnnyc70.0-94.0The [facility] HospitalComment on above:Performed By: #### CMP, ALB #### [facility] [address] [place] [address] Dr. Kaylen Fisher #1.0 103/ulCritically high0.3-0.8The [facility] Comment on above:Performed By: #### CMP, ALB #### [facility] [address] [place] [address] Dr. Kaylen Romanocytes/100 WBC (Bld)11.2 %Normal1.7-12.0[facility] Comment on above:Performed By: #### CMP, ALB #### [facility] [address] [place] [address] Dr. Kaylen Johnson #4.9 103/ulNormal1.4-6.5The [facility] HospitalComment on above:Performed By: #### CMP, ALB #### [facility] [address] [place] [address] Dr. Kaylen Sanfordutrophils/100 WBC (Bld)56.3 %Etarlq07.0-75.0The [facility] HospitalComment on above:Performed By: #### CMP, ALB #### [facility] [address] [place] [address] Dr. Kaylen Wiselet mean volume (Bld) [Entitic vol]10.0 fLNormal9.5-13.5The [facility] HospitalComment on above:Performed By: #### CMP, ALB #### [facility] [address] [place] [address] Dr. Kaylen TejedaPLT199 103/fsRjgbby270-428Tms [facility] HospitalComment on above: Performed By: #### CMP, ALB #### [facility] [address] [place] [address] Dr. Kaylen TjeedaRBC5.32 106/ulNormal4.70-6.10The [facility] HospitalComment on above:Performed By: #### CMP, ALB #### [facility] [address] [place] [address] Dr. Kaylen TejedaWBC8.7 103/ulNormal4.0-11.0The [facility] HospitalComment on above: Performed By: #### CMP, ALB #### [facility] [address] [place] [address] Dr. Kaylen Pena 14(COMP METB)on 92-96-9114Hdsrzwc/Globulin [Mass ratio]1.2 {ratio}NormalThe [facility] HospitalComselect specialty hospital on above:Performed By: #### CMP, ALB #### [facility] [address] [place] [address] Dr. Kaylen Emmanuel [Catalytic activity/Vol]78 U/ISwaggr43-346Qwq [facility] HospitalComselect specialty hospital on above:Performed By: #### CMP, ALB #### [facility] [address] [place] [address] Dr. Kaylen Smith [Catalytic activity/Vol]34 U/JAmweuq20-54Obe [facility] HospitalComment on above:Performed By: #### CMP, ALB #### [facility] [address] [place] [address] Dr. Kaylen Schaffer gap [Moles/Vol]8.8 mmol/LNormalThe [facility] HospitalComment on above:Performed By: #### CMP, ALB #### [facility] [address] [place] [address] Dr. Kaylen TejedaAST [Catalytic activity/Vol]9 U/LCritically fkl17-21Iua [facility] Hospitalment on above:Performed By: #### CMP, ALB #### [facility] [address] [place] [address] Dr. Kaylen TejedaBilirubin [Mass/Vol]0.8 mg/dLNormal0.2-1.0The [facility] Comment on above:Performed By: #### CMP, ALB #### [facility] [address] [place] [address] Dr. Kaylen TejedaCalcium [Mass/Vol]9.0 mg/dLNormal8.5-10.1The [facility] Comment on above:Performed By: #### CMP, ALB #### [facility] [address] [place] [address] Dr. Kaylen TejedaChloride [Moles/Vol]101 mmol/FWyqmfd25-172Ndf [facility] Comment on above:Performed By: #### CMP, ALB #### [facility] [address] [place] [address] Dr. Kaylen TejedaCO2 [Moles/Vol]31.8 mmol/MXfiomr21.0-32.0The [facility] Comment on above:Performed By: #### CMP, ALB #### [facility] [address] [place] [address] Dr. Kaylen TejedaCreatinine [Mass/Vol]1.12 mg/dLNormal0.70-1.30The [facility] HospitalComment on above:Performed By: #### CMP, ALB #### [facility] [address] [place] [address] Dr. Kaylen HawkinsGFR-AF QATARI>60Normal>=60The [facility] HospitalComment on above:Performed By: #### CMP, ALB #### [facility] [address] [place] [address] Dr. Kaylen HawkinsGFR-NON AF QATARI>60Normal>=60The [facility] HospitalComment on above:Performed By: #### CMP, ALB #### [facility] [address] [place] [address] Dr. Kaylen TejedaGlobulin (S) [Mass/Vol]3.3 g/dLNormUK HealthcareComment on above:Performed By: #### CMP, ALB #### [facility] [address] [address] [address] Kaylen TejedaGlucose [Mass/Vol]97 mg/yPZlagjg59-394SqfKettering Health Dayton Comment on above:Performed By: #### CMP, ALB #### [facility] [address] [address] [address] Kaylen TejedaPotassium [Moles/Vol]3.6 mmol/LNormal3.5-5.1[facility] Comment on above:Performed By: #### CMP, ALB #### [facility] [address] [place] [address] Dr. Kaylen TejedaProtein [Mass/Vol]7.2 g/dLNormal6.4-8.2[facility] Comment on above:Performed By: #### CMP, ALB #### [facility] [address] [place] [address] Dr. Kaylen TejedaSodium [Moles/Vol]138 mmol/JDpxzxu587-027CnkKettering Health [facility] Comment on above:Performed By: #### CMP, ALB #### [facility] [address] [place] [address] Dr. Kaylen TejedaUrea nitrogen [Mass/Vol]22.0 mg/dLCritically high7.0-18.0[facility] DaytonComment on above:Performed By: #### CMP, ALB #### [facility] [address] [place] [address] Dr. Kaylen TejedaUrea nitrogen/Creatinine [Mass ratio]19.6 mg/mgNoSelect Medical Specialty Hospital - Cleveland-FairhillComment on above:Performed By: #### CMP, ALB #### [facility] [address] [place] [address] Dr. Kaylen Pyle 84-19-2865PSYGGtowqcmvg (ORAVON) GUY HOLLOWAY ([id number]) 1965 M Date Time Provider Department 08/26/22 ROBERT KAHN During your visit today, we recorded the following information about you: Jeaneth Sukhjinder Pss 08/26/2022 10:03 AM Signed home health scheduler spoke to patient regarding 09/23/22 surgery with [...] 01/22/2016 Encounter Status:Closed by JEANETH ESCOBAR on 08/26/22[facility] 68-82-8754LPEPZapoeulsu (ARIELYARIEL) GUY HOLLOWAY ([id number]) 1965 M Date Time Provider Department 08/24/22 [...] today at 1PM Patient requesting call at [phone]. Please advise. Allergies As of Date: 08/24/2022 (No Known Allergies) Date Reviewed: 07/30/2022 Reviewed by: Robert Kahn MD - Fully Assessed Reason for Visit: Question [0607] Prescriptions as of 08/25/2022 - lisinopril (PRINIVIL) [...] 01/22/2016 Encounter Status:Closed by CONNIE BENNETT on 08/25/22[facility] CenterOrders Onlyon 46-20-9830Lrfquy [id number] Guy Holloway 1965 M Date Provider Department Center 08/18/2022 COURTNEY LAWSON . Family History Problem Relation Age of Onset Deep vein thrombosis Mother's Sister Family Status - Relation Status Age at Mother's SisterNormalUniWestern Reserve HospitalOffice Visiton 24-76-9871Jpqqyq-up [id number] Guy Holloway 1965 M Date Provider Department Center 08/12/2022 COURTNEY LAWSON YOHANNES Corbett [facility] Family History Problem Relation Age of Onset Deep vein thrombosis Mother's Sister Family Status - Relation Status Age at Mother's Sister Level of Service:[address] [place] OFFICE/OUTPATIENT NEW MODERATE MDM 45-59 MINUTES Reason for Visit and Comments: Pre-op Exam [892496] Hypertension [715699] Pulmonary embolism [Other]NormalHolzer HospitalCNOVon 58-99-8100HYKXRbmitd Visit ([facility]) GUY HOLLOWAY ([id number]) 1965 M Date Time Provider Department 07/30/22 9:30 AM ROBERT KAHN During your visit today, we recorded the following information about you: Weight Height 136.1 kg 1.854 m Robert Kahn MD 07/30/2022 12:19 PM Signed CONSULT ORTHOPAEDIC: HIP PRIMARY CARE PHYSICIAN: Danielle Hernandez MD, MD REFERRING PROVIDER: Kushal Christian [address] [address] ASSESSMENT AND PLAN: Impression: Right Hip Severe [...] activities which include walking 2 blocks, doing onion tier, exercise, rising from a sitting position, standing [...] smoker Normal: Non smoker (more content not included)...Normal [facility] CenterLabnorwoodtory - Microbiology and Antimicrobial susceptibilityon 07-30-2022. aureus and MRSA panel RANDALL+probe (Nose)Negative NegativeGalion Community Hospital AUREUS PCRon 07-30-2022. aureus and MRSA panel RANDALL+probe (Nose)NormalNegativeKettering Health Behavioral Medical CenterComment on above:Order Comment: Specimen Type: SWAB OF INTERNAL NOSEOrdering Facility: [facility] Address: [address] [place] [address]Result Comment: Negative for Staphylococcus aureus by PCR. Negative for MRSA by PCRPerformed By: #### SAPCR ####[facility] LABCLIA [id number] [place] [address] [place] OF AMERICACNOVon 69-82-9776LTQVQlfmlo Visit (TERRY) GUY HOLLOWAY ([id number]) 1965 M Date Time Provider Department 07/20/22 [...] [Z96.642] Order(s):XR HIP GENERAL 3V PELV/AP/LAT RIGHT [[id number]] Order #: [id number] FUTURE Prescriptions as of 07/23/2022 - lisinopril [...] Encounter Status:Closed by KUSHAL CHRISTIAN II on 07/23/22[facility] CenterXR HIP 3V PELV+ AP/LAT RTon 82-05-4995WV HIP 3V PELV+ AP/LAT RT* * *Final Report* * * DATE OF [...] are preserved. IMPRESSION: SEVERE RIGHT HIP OSTEOARTHRITIS. Dressmaker Helper: RONNELL Transcribe Date/Time: Jul 20 2022 1:12P Dictated by : EMI ANDERSON MD This examination was interpreted and the report reviewed and electronically signed by: EMI ANDERSON MD on Jul 20 2022 1:21PM EST [id number] Health Behavioral Medical CenterXR Pelvis and Hip - right AP and Lateral frogon 84-13-7520NQHPOHZPOZ: SEVERE RIGHT HIP OSTEOARTHRITIS. Dressmaker Helper: RONNELL Transcribe Date/Time: Jul 20 2022 1:12P Dictated by : EMI ANDERSON MD This examination was interpreted and the report reviewed and electronically signed by: EMI ANDERSON MD on Jul 20 2022 1:21PM EST DIVISION OF RADIOLOGY* * *Final Report* * * DATE OF [...] joints and symphysis are preserved. DIVISION OF RADIOLOGYProvider, [facility] - 07/20/2022 * * *Final Report* * [...] preserved. IMPRESSION IMPRESSION: SEVERE RIGHT HIP OSTEOARTHRITIS. Dressmaker Helper: PSCLinwood Transcribe Date/Time: Jul 20 2022 1:12P Dictated by : EMI ANDERSON MD This examination was interpreted and the report reviewed and electronically signed by: EMI ANDERSON MD on Jul 20 2022 1:21PM [facility] CenterRadiology Study observation (narrative)[facility] CenterXR Pelvis and Hip - right AP and Lateral frogOrdered By: Ccf Provider on 07-20-2022 [facility] CenterLUMBAR SPINE 2 OR 3 VIEWSon 55-36-7406RZLCEX SPINE 2 OR 3 VIEWS STUDY: LUMBAR SPINE 2 OR 3 VIEWS; 05/05/2022 1:41 pm INDICATION: PAIN. COMPARISON: None. ACCESSION NUMBER(S): [id number] ORDERING CLINICIAN: Shavon Espana TECHNIQUE: AP and [...] hip. COMPARISON OF FINDINGS: IMPRESSION: DJD. Disc disease.NormalSt. George L. Mee Memorial HospitalTHORACIC SPINE 2 VIEWS on 72-33-9873RSUXXJDI SPINE 2 VIEWSSTUDY: THORACIC SPINE 2 VIEWS; 05/05/2022 1:42 pm INDICATION: PAIN. COMPARISON: None. ACCESSION NUMBER(S): [id number] ORDERING CLINICIAN: Shavon Espana TECHNIQUE: AP and lateral upright images of the thoracic spine were obtained. FINDINGS: The alignment of spine is unremarkable. There is moderately severe degenerative change with vertebral body endplate spurring. There is no obvious fracture or bone destruction. COMPARISON OF FINDINGS: IMPRESSION: DJD.NormalSt. George L. Mee Memorial HospitalPROF 14(COMP METB)on 03-25-2022 Albumin [Mass/Vol]3.5 g/dLNormal3.4-5.0The [facility] HospitalComment on above: Performed By: #### CMP #### [facility] [address] [place] [address] Dr. Kaylen TejedaAlbumin/Globulin [Mass ratio]1.1 {ratio}NormalThe [facility] HospitalComment on above:Performed By: #### CMP #### [facility] [address] [place] [address] Dr. Kaylen HatfieldP [Catalytic activity/Vol]74 U/LIautax28-184Whw [facility] HospitalComment on above:Performed By: #### CMP #### [facility] [address] [place] [address] Dr. Kaylen HatfieldT [Catalytic activity/Vol]40 U/FBcrjeg38-71Cjv [facility] HospitalComment on above:Performed By: #### CMP #### [facility] [address] [place] [address] Dr. Kaylen Tonyon gap [Moles/Vol]9.1 mmol/LNormalThe [facility] HospitalComment on above:Performed By: #### CMP #### [facility] [address] [place] [address] Dr. Kaylen TejedaAST [Catalytic activity/Vol]20 U/VBfaesk10-91Tmj [facility] Hospitalment on above:Performed By: #### CMP #### [facility] [address] [place] [address] Dr. Kaylen TejedaBilirubin [Mass/Vol]0.7 mg/dLNormal0.2-1.0The [facility] Comment on above:Performed By: #### CMP #### [facility] [address] [place] [address] Dr. Kaylen TejedaCalcium [Mass/Vol]8.5 mg/dLNormal8.5-10.1The [facility] Comment on above:Performed By: #### CMP #### [facility] [address] [place] [address] Dr. Kaylen TejedaChloride [Moles/Vol]107 mmol/UTnxard25-089Xhc [facility] Comment on above:Performed By: #### CMP #### [facility] [address] [place] [address] Dr. Kaylen TejedaCO2 [Moles/Vol]27.9 mmol/PDbjyao45.0-32.0The [facility] Comment on above:Performed By: #### CMP #### [facility] [address] [place] [address] Dr. Kaylen TejedaCreatinine [Mass/Vol]1.30 mg/dLNormal0.70-1.30The [facility] HospitalComment on above:Performed By: #### CMP #### [facility] [address] [address] [address] Kaylen HawkinsGFR-AF QATARI>60Normal>=60The [facility] HospitalComment on above:Performed By: #### CMP #### [facility] [address] [place] [address] Dr. Kaylen HawkinsGFR-NON AF FSHKVIVY36 mL/min/1.72b1Fqdbgrdgjw low>=60The [facility] HospitalComment on above:Performed By: #### CMP #### [facility] [address] [place] [address] Dr. Kaylen TejedaGlobulin (S) [Mass/Vol]3.1 g/dLNormalThe [facility] HospitalComment on above:Performed By: #### CMP #### [facility] [address] [place] [address] Dr. Kaylen TejedaGlucose [Mass/Vol]124 mg/dLCritically bpph51-595Qny [facility] HospitalComment on above:Performed By: #### CMP #### [facility] [address] [place] [address] Dr. Kaylen TejedaPotassium [Moles/Vol]4.0 mmol/LNormal3.5-5.1The [facility] Comment on above:Performed By: #### CMP #### [facility] [address] [place] [address] Dr. Kaylen TejedaProtein [Mass/Vol]6.6 g/dLNormal6.4-8.2The [facility] Comment on above:Performed By: #### CMP #### [facility] [address] [place] [address] DrKeiko Simpsonum [Moles/Vol]140 mmol/PWruaqe558-532Xjo [facility] Comment on above:Performed By: #### CMP #### [facility] [address] [place] [address] Dr. Kaylen Perez nitrogen [Mass/Vol]22.0 mg/dLCritically high7.0-18.0The [facility] HospitalComment on above:Performed By: #### CMP #### [facility] [address] [place] [address] Dr. Kaylen Perez nitrogen/Creatinine [Mass ratio]16.9 mg/mgNormalThe [facility] HospitalComment on above:Performed By: #### CMP #### [facility] [address] [place] [address] Dr. Kaylen Chávez KENDAL ADMITon [id number] [Catalytic activity/Vol]446 U/L Critically mxyc69-153Xmr [facility] HospitalComment on above:Performed By: #### CMP, ALB #### [facility] [address] [place] [address] Dr. Kaylen Chong.MB [Mass/Vol]5.05 ng/mLCritically high<=3.60The [facility] HospitalComment on above:Performed By: #### CMP, ALB #### [facility] [address] [place] [address] Dr. Kaylen VasquezTROP8.4 pg/mLNormal4.0-76.1The [facility] HospitalComment on above:Result Comment: CUT-OFF POINTS HAVE BEEN ESTABLISHED BASED ON THE FOURTH UNIVERSAL DEFINITIONS OF MYOCARDIAL INFARCTION. THE UPPER REFERENCE LIMIT (URL) OF TROPONIN, DEFINED THE 99TH PERCENTILE OF cTnI DISTRIBUTION IN A REFERENCE POPULATION, HAS BEEN CONFIRMED THE DECISION THRESHOLD FOR NC DIAGNOSIS.Performed By: #### CMP, ALB #### [facility] [address] [place] [address] Dr. Kaylen HernandezO110 ng/mLCritically scda76-55Qey [facility] HospitalComment on above:Performed By: #### CMP, ALB #### [facility] [address] [place] [address] Dr. Kaylen Brown AUTO DIFFon [id number] #0.1 103/ulNormal0.0-0.1The [facility] HospitalComment on above:Performed By: #### CBC #### [facility] [address] [place] [address] Dr. Kaylen TejedaBasophils/100 WBC (Bld)0.9 %Normal0.2-2.0The [facility] Comment on above:Performed By: #### CBC #### [facility] [address] [place] [address] Dr. Kaylen Ramon #0.2 103/ulNormal0.0-0.7The [facility] HospitalComment on above: Performed By: #### CBC #### [facility] [address] [place] [address] Dr. Kaylen Hawkinsosinophils/100 WBC (Bld)2.2 %Normal0.9-7.0[facility] Comment on above:Performed By: #### CBC #### [facility] [address] [place] [address] Dr. Kaylen Hawkinsrythrocyte distribution width (RBC) [Ratio]13.8 %Pgnarr36.0-15.0 [facility] DaytonComment on above:Performed By: #### CBC #### [facility] [address] [place] [address] Dr. Kaylen TejedaHematocrit (Bld) [Volume fraction]46.1 %Vqqvdi95.0-54.0The [facility] HospitalComment on above:Performed By: #### CBC #### [facility] [address] [place] [address] Dr. Kaylen TejedaHemoglobin (Bld) [Mass/Vol]15.7 g/pKSjxsie62.0-18.0The [facility] HospitalComment on above:Performed By: #### CBC #### [facility] [address] [place] [address] Dr. Kaylen Dick #0.05 10e3/ulCritically high0.00-0.03[facility] Comment on above:Performed By: #### CBC #### [facility] [address] [address] [address] Kaylen Dick %0.6 %Critically high0.0-0.5The [facility] HospitalComment on above:Performed By: #### CBC #### [facility] [address] [address] [address] Kaylen Duarte #2.6 103/ulNormal1.2-3.8The [facility] HospitalComment on above:Performed By: #### CBC #### [facility] [address] [address] [address] Kaylen Summershocytes/100 WBC (Bld)30.4 %Xbumop62.5-60.0The [facility] HospitalComment on above:Performed By: #### CBC #### [facility] [address] [place] [address] Dr. Kaylen GillespieUAL DIFF REQNONormalThe [facility] HospitalComment on above: Performed By: #### CBC #### [facility] [address] [place] [address] Dr. Kaylen Quiles (RBC) [Entitic mass]29.8 fwQvepwp00.9-34.0The [facility] HospitalComment on above:Performed By: #### CBC #### [facility] [address] [place] [address] Dr. Kaylen Quiles (RBC) [Mass/Vol]34.1 g/rWRpagia30.9-35.2The [facility] HospitalComment on above:Performed By: #### CBC #### [facility] [address] [place] [address] Dr. Kaylen Quiles (RBC) [Entitic vol]87.5 vJWgjpre18.0-94.0The [facility] HospitalComment on above:Performed By: #### CBC #### [facility] [address] [place] [address] Dr. Kaylen Fisher #0.9 103/ulCritically high0.3-0.8The [facility] Comment on above:Performed By: #### CBC #### [facility] [address] [address] [address] Kaylen Romanocytes/100 WBC (Bld)10.3 %Normal1.7-12.0The [facility] Comment on above:Performed By: #### CBC #### [facility] [address] [place] [address] Dr. Kaylen SanfordUT #4.8 103/ulNormal1.4-6.5The [facility] HospitalComment on above:Performed By: #### CBC #### [facility] [address] [place] [address] Dr. Kaylen Sanfordutrophils/100 WBC (Bld)55.6 %Ymrguu45.0-75.0The [facility] HospitalComment on above:Performed By: #### CBC #### [facility] [address] [place] [address] Dr. Kaylen TejedaPlatelet mean volume (Bld) [Entitic vol]10.2 fLNormal9.5-13.5The [facility] HospitalComment on above:Performed By: #### CBC #### [facility] [address] [place] [address] Dr. Kaylen TejedaPLT206 103/wtRlthfr682-357Bex [facility] HospitalComment on above: Performed By: #### CBC #### [facility] [address] [place] [address] Dr. Kaylen TejedaRBC5.27 106/ulNormal4.70-6.10The [facility] HospitalComment on above:Performed By: #### CBC #### [facility] [address] [place] [address] Dr. Kaylen TejedaWBC8.6 103/ulNormal4.0-11.0The [facility] HospitalComment on above: Performed By: #### CBC #### [facility] [address] [place] [address] Dr. Kaylen TejedaCT ABD/PELVIS WO CONon [id number] ABD/PELVIS WO CONEXAMINATION: CT ABD/PELVIS WO CON, 03/24/2022 6:50 PM MDT HISTORY: CALCULUS OF KIDNEY COMPARISON: None. TECHNIQUE: CT scan of the abdomen and pelvis was performed without IV contrast. CT dose reduction technique was used, including Automated Exposure Control. FINDINGS: [employer] Director: No pertinent findings, which are not already [...] Electronically authenticated by: LIZ MONTILLA Date: 2022-03-24 21:57Grant HospitalBNPon [id number] peptide B (Bld) [Mass/Vol]83.0 pg/mLNormal<=900.0The [facility] HospitalComment on above:Performed By: #### BNP, CMP, T7, TSH #### [facility] [address] [place] [address] Dr. Kaylen TejedaCBC AUTO DIFFon [id number] #0.1 103/ulNormal0.0-0.1The [facility] HospitalComment on above:Performed By: #### CBC #### [facility] [address] [place] [address] Dr. Kaylen TejedaBasophils/100 WBC (Bld)0.9 %Normal0.2-2.0The [facility] Comment on above:Performed By: #### CBC #### [facility] [address] [address] [address] Kaylen Ramon #0.1 103/ulNormal0.0-0.7The [facility] HospitalComment on above: Performed By: #### CBC #### [facility] [address] [place] [address] Dr. Kaylen Hawkinsosinophils/100 WBC (Bld)1.9 %Normal0.9-7.0The [facility] Comment on above:Performed By: #### CBC #### [facility] [address] [place] [address] Dr. Kaylen Hawkinsrythrocyte distribution width (RBC) [Ratio]13.5 %Khtdsw68.0-15.0 The [facility] HospitalComment on above:Performed By: #### CBC #### [facility] [address] [place] [address] Dr. Kaylen TejedaHematocrit (Bld) [Volume fraction]45.5 %Remggg34.0-54.0The [facility] HospitalComment on above:Performed By: #### CBC #### [facility] [address] [place] [address] Dr. Kaylen TejedaHemoglobin (Bld) [Mass/Vol]15.8 g/sZGyoszw36.0-18.0The [facility] HospitalComment on above:Performed By: #### CBC #### [facility] [address] [place] [address] Dr. Kaylen Dick #0.03 10e3/ulNormal0.00-0.03The [facility] HospitalComment on above:Performed By: #### CBC #### [facility] [address] [address] [address] Kaylen Dick %0.4 %Normal0.0-0.5The [facility] on above: Performed By: #### CBC #### [facility] [address] [address] [address] Kaylen Duarte #1.8 103/ulNormal1.2-3.8The [facility] HospitalComment on above:Performed By: #### CBC #### [facility] [address] [place] [address] Dr. Kaylen Summershocytes/100 WBC (Bld)27.3 %Iaokwp90.5-60.0The [facility] on above:Performed By: #### CBC #### [facility] [address] [place] [address] Dr. Kaylen GillespieUAL DIFF REQNONormalThe [facility] HospitalComment on above: Performed By: #### CBC #### [facility] [address] [place] [address] Dr. Kaylen Quiles (RBC) [Entitic mass]30.0 hjOamzim02.9-34.0The [facility] on above:Performed By: #### CBC #### [facility] [address] [place] [address] Dr. Kaylen Quiles (RBC) [Mass/Vol]34.7 g/dWQikwyt88.9-35.2The [facility] on above:Performed By: #### CBC #### [facility] [address] [place] [address] Dr. Kaylen Quiles (RBC) [Entitic vol]86.3 jXQjcrda34.0-94.0The [facility] on above:Performed By: #### CBC #### [facility] [address] [place] [address] Dr. Kaylen Fisher #0.6 103/ulNormal0.3-0.8The [facility] HospitalComselect specialty hospital on above:Performed By: #### CBC #### [facility] [address] [place] [address] Dr. Kaylen Romanocytes/100 WBC (Bld)8.7 %Normal1.7-12.0The [facility] Comment on above:Performed By: #### CBC #### [facility] [address] [place] [address] Dr. Kaylen SanfordUT #4.1 103/ulNormal1.4-6.5The [facility] HospitalComment on above:Performed By: #### CBC #### [facility] [address] [place] [address] Dr. Kaylen Sanfordutrophils/100 WBC (Bld)60.8 %Tebldb51.0-75.0The [facility] HospitalComment on above:Performed By: #### CBC #### [facility] [address] [place] [address] Dr. Kaylen Wiselet mean volume (Bld) [Entitic vol]9.4 fLCritically low 9.5-13.5The [facility] HospitalComment on above:Performed By: #### CBC #### [facility] [address] [place] [address] Dr. Kaylen TejedaPLT169 103/ecAlmana886-319Prp [facility] HospitalComment on above: Performed By: #### CBC #### [facility] [address] [place] [address] Dr. Kaylen TejedaRBC5.27 106/ulNormal4.70-6.10The [facility] HospitalComment on above:Performed By: #### CBC #### [facility] [address] [place] [address] Dr. Kaylen TejedaWBC6.7 103/ulNormal4.0-11.0The [facility] HospitalComment on above: Performed By: #### CBC #### [facility] [address] [place] [address] Dr. Kaylen Ayala THYROXINE INDEX T7on 07-42-0105ZOT4.64Inpksl5.30-4.50The [facility] HospitalComment on above:Performed By: #### BNP, CMP, T7, TSH #### [facility] [address] [place] [address] Dr. Kaylen TejedaT3U33.0 %Jdhzlu67.0-40.0The [facility] HospitalComment on above: Performed By: #### BNP, CMP, T7, TSH #### [facility] [address] [place] [address] Dr. Kaylen TejedaT4 [Mass/Vol]8.50 ug/dLNormal4.50-12.10The [facility] Comment on above:Performed By: #### BNP, CMP, T7, TSH #### [facility] [address] [place] [address] Dr. Kaylen TejedaPROF 14(COMP METB)on 51-59-2028Ztxtmrf [Mass/Vol]3.9 g/dLNormal 3.4-5.0The [facility] HospitalComment on above:Performed By: #### BNP, CMP, T7, TSH #### [facility] [address] [place] [address] Dr. Kaylen TejedaAlbumin/Globulin [Mass ratio]1.1 {ratio}NormalThe [facility] HospitalComment on above:Performed By: #### BNP, CMP, T7, TSH #### [facility] [address] [place] [address] Dr. Kaylen Emmanuel [Catalytic activity/Vol]78 U/LJmyedj81-517Cyf [facility] HospitalComment on above:Performed By: #### BNP, CMP, T7, TSH #### [facility] [address] [place] [address] Dr. Kaylen Smith [Catalytic activity/Vol]54 U/KQkturj42-73Aln [facility] HospitalComment on above:Performed By: #### BNP, CMP, T7, TSH #### [facility] [address] [place] [address] Dr. Kaylen Schaffer gap [Moles/Vol]10.9 mmol/LNormalThe [facility] Comment on above:Performed By: #### BNP, CMP, T7, TSH #### [facility] [address] [address] [address] Kaylen TejedaAST [Catalytic activity/Vol]32 U/IVkkrsh46-08Yek [facility] HospitalComment on above:Performed By: #### BNP, CMP, T7, TSH #### [facility] [address] [place] [address] Dr. Kaylen TejedaBilirubin [Mass/Vol]1.6 mg/dLCritically high0.2-1.0The [facility] HospitalComment on above:Performed By: #### BNP, CMP, T7, TSH #### [facility] [address] [address] [address] Kaylen TejedaCalcium [Mass/Vol]9.1 mg/dLNormal8.5-10.1The [facility] Comment on above:Performed By: #### BNP, CMP, T7, TSH #### [facility] [address] [place] [address] Dr. Kaylen TejedaChloride [Moles/Vol]102 mmol/QAlydro72-724Sqh [facility] Comment on above:Performed By: #### BNP, CMP, T7, TSH #### [facility] [address] [place] [address] Dr. Kaylen TejedaCO2 [Moles/Vol]29.0 mmol/VPjqtez04.0-32.0The [facility] Comment on above:Performed By: #### BNP, CMP, T7, TSH #### [facility] [address] [place] [address] Dr. Kaylen TejedaCreatinine [Mass/Vol]1.04 mg/dLNormal0.70-1.30The [facility] HospitalComment on above:Performed By: #### BNP, CMP, T7, TSH #### [facility] [address] [place] [address] Dr. Kaylen HawkinsGFR-AF QATARI>60Normal>=60The [facility] HospitalComment on above:Performed By: #### BNP, CMP, T7, TSH #### [facility] [address] [place] [address] Dr. Kaylen HawkinsGFR-NON AF QATARI>60Normal>=60The [facility]ment on above:Performed By: #### BNP, CMP, T7, TSH #### [facility] [address] [address] [address] Kaylen TejedaGlobulin (S) [Mass/Vol]3.5 g/dLNormUK HealthcareComment on above:Performed By: #### BNP, CMP, T7, TSH #### [facility] [address] [address] [address] Kaylen TejedaGlucose [Mass/Vol]116 mg/dLCritically quhq43-764Bbw [facility] HospitalComment on above:Performed By: #### BNP, CMP, T7, TSH #### [facility] [address] [place] [address] Dr. Kaylen TejedaPotassium [Moles/Vol]3.9 mmol/LNormal3.5-5.1The [facility] Comment on above:Performed By: #### BNP, CMP, T7, TSH #### [facility] [address] [address] [address] Kaylen TejedaProtein [Mass/Vol]7.4 g/dLNormal6.4-8.2The [facility] Comment on above:Performed By: #### BNP, CMP, T7, TSH #### [facility] [address] [place] [address] Dr. Kaylen TejedaSodium [Moles/Vol]138 mmol/JUepvfb988-461Spx [facility] Comment on above:Performed By: #### BNP, CMP, T7, TSH #### [facility] [address] [place] [address] Dr. Kaylen TejedaUrea nitrogen [Mass/Vol]11.0 mg/dLNormal7.0-18.0The [facility] HospitalComment on above:Performed By: #### BNP, CMP, T7, TSH #### [facility] [address] [place] [address] Dr. Kaylen TejedaUrea nitrogen/Creatinine [Mass ratio]10.6 mg/mgNoSelect Medical Specialty Hospital - Cleveland-FairhillComment on above:Performed By: #### BNP, CMP, T7, TSH #### [facility] [address] [address] [address] Kaylen Perry 18-15-7740WLC0.140 uIU/mLNormal0.358-3.740[facility]Com[facility] hospital on above:Performed By: #### BNP, CMP, T7, TSH #### [facility] [address] [address] [address] Kaylen Waldrop Crystal Clinic Orthopedic CenterComment on above: Result Comment: <0.34 UIU/ml HYPERTHYROID 0.34-5.60 UIU/ml EUTHYROID >5.60 UIU/ml HYPOTHYROIDPerformed By: #### BNP, CMP, T7, TSH #### [facility] [address] [address] [address] Kaylen TejedaActivated partial thromboplastin time (aPTT) in platelet poor plasma by coagulation aOrdered By: Brendon Mcnamara on 18-56-6197lDSG Coag (PPP) [Time]32.3 s25.1-36.5FOhioHealthAlbumin [Mass/volume] in Serum or PlasmaOrdered By: Brendon Mcnamara on 63-08-5566Jlzcrcg [Mass/Vol]3.9 g/dL 3.2-5.5FOhioHealthBasophils Auto (Bld) [#/Vol]Ordered By: Brendon Mcnamara on 32-85-8258Soalqiyiv (Bld) [#/Vol]0.0 10*3/uL0.0-0.2FOhioHealthBasophils/100 WBC Auto (Bld)Ordered By: Brendon Mcnamara on 42-04-1818Iseqzjuhx/100 WBC (Bld)0.8 %[facility] HospitalBlood hemoglobin measurement (mass/volume)Ordered By: Brendon Mcnamara on 02-12-2022 Hemoglobin (Bld) [Mass/Vol]15.5 g/dL13.0-17.0[facility] Blood leukocytes automated count (number/volume)Ordered By: Brendon Mcnamara on 34-55-5802API (Bld) [#/Vol]5.9 10*3/uL4.5-11.0[facility] CT angio cheston 77-84-0643VV angio [facility] [place] [address] [place] [address] CT Scan Report Signed Patient: Guy Holloway MR#: [id number] : 1965 Acct:[id number] Age/Sex: 56 / M ADM Date: 02/12/22 Loc: ER Room: Type: [facility] ER Attending Dr: Ordering Provider: [...] Murillo Jr., M.D.02/12/2022 2:52 PM Dictation Location: [place] [address] Transcribed By: SYDNEY 02/12/22 9004 Dictated By: Tiffanie Murillo Jr, MD 02/12/22 1441 Signed By: 02/12/22 1452NormalBrown Memorial HospitalComplete Blood Count Auto Diffon 57-18-7115Wstrusvmr (Bld) [#/Vol]0.0 10*3/uLNormal0.0-0.2FOhioHealthComment on above:Result Comment: PERFORMED BY: [place] [address] PATHOLOGIST GLOBAL CLIMATE CHANGE ANALYST KAIA KENDRICK M.D.Performed By: #### CMP, PT, PTT, CK, CKMB, HS TROP, CBC #### [place] [address] USABasophils/100 WBC (Bld)0.8 %Normal.[facility] Memorial HospitalComment on above:Performed By: #### CMP, PT, PTT, CK, CKMB, HS TROP, CBC #### [place] [address] USAEosinophils (Bld) [#/Vol]0.1 10*3/uLNormal0.0-0.45 [facility] HospitalComment on above:Performed By: #### CMP, PT, PTT, CK, CKMB, HS TROP, CBC #### [place] [address] USAEosinophils/100 WBC (Bld)2.4 %Normal.[facility] Memorial HospitalComment on above:Performed By: #### CMP, PT, PTT, CK, CKMB, HS TROP, CBC #### [place] [address] USAErythrocyte distribution width (RBC) [Ratio]14.9 %High 12.0-14.8[facility] Memorial HospitalComment on above:Performed By: #### CMP, PT, PTT, CK, CKMB, HS TROP, CBC #### [place] [address] USAHematocrit (Bld) [Volume fraction]44.4 %Xhmlbv83.8-50.0 [facility] HospitalComment on above:Performed By: #### CMP, PT, PTT, CK, CKMB, HS TROP, CBC #### [facility] [address] [place] [address] USAHemoglobin (Bld) [Mass/Vol]15.5 g/qENlhwzo09.0-17.0 [facility] HospitalComment on above:Performed By: #### CMP, PT, PTT, CK, CKMB, HS TROP, CBC #### [facility] [address] [place] [address] USALymphocytes (Bld) [#/Vol]1.4 10*3/uLNormal1.00-4.8 [facility] HospitalComment on above:Performed By: #### CMP, PT, PTT, CK, CKMB, HS TROP, CBC #### [place] [address] USALymphocytes/100 WBC (Bld)23.8 %Normal.[facility] Memorial HospitalComment on above:Performed By: #### CMP, PT, PTT, CK, CKMB, HS TROP, CBC #### [address] (RBC) [Entitic mass]29.6 gvQcerrr44.5-35.2FOhioHealthComment on above:Performed By: #### CMP, PT, PTT, CK, CKMB, HS TROP, CBC #### [address] (RBC) [Entitic vol]85.1 cCFqdpnw94.5-101Brown Memorial HospitalComment on above:Performed By: #### CMP, PT, PTT, CK, CKMB, HS TROP, CBC #### [place] [address] USAMean Corpuscular HGB Conc34.8 g/jGRcrqrj85.5-35.6FOhioHealthComment on above:Performed By: #### CMP, PT, PTT, CK, CKMB, HS TROP, CBC #### [facility] [address] [place] [address] USAMonocytes (Bld) [#/Vol]0.7 10*3/uLNormal0.0-0.8[facility] HospitalComselect specialty hospital on above:Performed By: #### CMP, PT, PTT, CK, CKMB, HS TROP, CBC #### [facility] [address] [place] [address] USAMonocytes/100 WBC (Bld)11.8 %Normal.[facility] Memorial HospitalComselect specialty hospital on above:Performed By: #### CMP, PT, PTT, CK, CKMB, HS TROP, CBC #### [facility] [address] [place] [address] USANeutrophils (Bld) [#/Vol]3.6 10*3/uLNormal1.8-7.7FOhioHealthComselect specialty hospital on above:Performed By: #### CMP, PT, PTT, CK, CKMB, HS TROP, CBC #### [facility] [address] [place] [address] USANeutrophils/100 WBC (Bld)61.2 %Normal.[facility] HospitalComselect specialty hospital on above:Performed By: #### CMP, PT, PTT, CK, CKMB, HS TROP, CBC #### [facility] [address] [place] [address] USANucleated RBC/100 WBC (Bld) [Ratio]0.3 %Normal0-0.5 [facility] HospitalComselect specialty hospital on above:Performed By: #### CMP, PT, PTT, CK, CKMB, HS TROP, CBC #### [facility] [address] [place] [address] USAPlatelet mean volume (Bld) [Entitic vol]8.2 fLNormal 6.6-10.1FOhioHealthComment on above:Performed By: #### CMP, PT, PTT, CK, CKMB, HS TROP, CBC #### [facility] [address] [place] [address] USAPlatelets (Bld) [#/Vol]167 10*3/mWRnbjja015-457HpxmplelnBrown Memorial HospitalComment on above:Performed By: #### CMP, PT, PTT, CK, CKMB, HS TROP, CBC #### [facility] [address] [place] [address] USARBC (Bld) [#/Vol]5.22 10*6/uLNormal3.90-5.60[facility] Memorial HospitalComment on above:Performed By: #### CMP, PT, PTT, CK, CKMB, HS TROP, CBC #### [place] [address] USAWBC (Bld) [#/Vol]5.9 10*3/uLNormal4.5-11.0[facility] Memorial HospitalComment on above:Performed By: #### CMP, PT, PTT, CK, CKMB, HS TROP, CBC #### [place] [address] USAComprehensive Metabolic Panelon 46-35-1359Uovavyp [Mass/Vol]3.9 g/dLNormal3.2-5.5FOhioHealthComment on above:Performed By: #### CMP, PT, PTT, CK, CKMB, HS TROP, CBC #### [place] [address] USAAlbumin/Globulin [Mass ratio]1.5 {ratio}[facility] Methodist HospitalComment on above:Performed By: #### CMP, PT, PTT, CK, CKMB, HS TROP, CBC #### [place] [address] USAALP [Catalytic activity/Vol]64 U/YWjezoq20-37DxaekyrbaBrown Memorial HospitalComment on above:Performed By: #### CMP, PT, PTT, CK, CKMB, HS TROP, CBC #### [place] [address] USAALT [Catalytic activity/Vol]39 U/KEfzxqi03-66FnvgxswfyBrown Memorial HospitalComment on above:Performed By: #### CMP, PT, PTT, CK, CKMB, HS TROP, CBC #### [facility] [address] [place] [address] USAAST [Catalytic activity/Vol]32 U/YIqvbnz65-83QvtztywrvBrown Memorial HospitalComment on above:Performed By: #### CMP, PT, PTT, CK, CKMB, HS TROP, CBC #### [facility] [address] [place] [address] USABilirubin [Mass/Vol]1.6 mg/dLHigh0.3-1.2FOhioHealthComment on above:Result Comment: Samples from patients who have taken Naproxen have shown spurious elevation in Total Bilirubin levels. A metabolite of Naproxen, O-desmethylnaproxen, has been shown to interfere with the Félix-Lemuel method for measuring Total Bilirubin.Performed By: #### CMP, PT, PTT, CK, CKMB, HS TROP, CBC #### [place] [address] USACalcium [Mass/Vol]9.1 mg/dLNormal8.2-10.2FOhioHealthComment on above:Performed By: #### CMP, PT, PTT, CK, CKMB, HS TROP, CBC #### [facility] [address] [place] [address] USAChloride [Moles/Vol]103 mmol/XUpbpgn99-399EdekmvcacBrown Memorial HospitalComment on above:Performed By: #### CMP, PT, PTT, CK, CKMB, HS TROP, CBC #### [facility] [address] [place] [address] USACO2 [Moles/Vol]23.1 mmol/TYsmvbw41.0-30.0[facility] Memorial HospitalComment on above:Performed By: #### CMP, PT, PTT, CK, CKMB, HS TROP, CBC #### [facility] [address] [place] [address] USACreatinine [Mass/Vol]1.03 mg/dLNormal0.64-1.27[facility] Memorial HospitalComment on above:Performed By: #### CMP, PT, PTT, CK, CKMB, HS TROP, CBC #### [place] [address] USACreatinine Clr Calc Pajmtyug879.27NoGreene Memorial HospitalComment on above:Result Comment: PERFORMED BY: [place] [address] PATHOLOGIST GLOBAL CLIMATE CHANGE ANALYST KAIA KENDRICK M.D.Performed By: #### CMP, PT, PTT, CK, CKMB, HS TROP, CBC #### [place] [address] USAEstimated GFR ( Puneet> 60[facility] Methodist HospitalComment on above:Result Comment: GFR estimated reference range: According to KDOQI guidelines, <60 ml/min/1.73m2 is sufficient to diagnose a patient with chronic kidney disease.Performed By: #### CMP, PT, PTT, CK, CKMB, HS TROP, CBC #### [place] [address] USAEstimated GFR (Non- Am> 60[facility] HospitalComment on above:Performed By: #### CMP, PT, PTT, CK, CKMB, HS TROP, CBC #### [place] [address] USAGlobulin (S) [Mass/Vol]2.6 g/dLNoGreene Memorial HospitalComment on above:Performed By: #### CMP, PT, PTT, CK, CKMB, HS TROP, CBC #### [place] [address] USAGlucose [Mass/Vol]79 mg/kLLmyrvx50-027WkaxfymmkBrown Memorial HospitalComment on above:Result Comment: Random Glucose Reference Range is dependent on time and content of last meal. Glucose of more than 200 mg/dL in a nonstressed, ambulatory subject supports the diagnosis of Diabetes Mellitus. ADA recommended reference rangePerformed By: #### CMP, PT, PTT, CK, CKMB, HS TROP, CBC #### [place] [address] USAPotassium [Moles/Vol]3.9 mmol/LNormal3.5-5.1FOhioHealthComment on above:Performed By: #### CMP, PT, PTT, CK, CKMB, HS TROP, CBC #### [facility] [address] [place] [address] USAProtein [Mass/Vol]6.5 g/dLNormal6.1-7.9[facility] Memorial HospitalComment on above:Performed By: #### CMP, PT, PTT, CK, CKMB, HS TROP, CBC #### [facility] [address] [place] [address] USASodium [Moles/Vol]137 mmol/TZbwxbl369-653TzcartaqkBrown Memorial HospitalComment on above:Performed By: #### CMP, PT, PTT, CK, CKMB, HS TROP, CBC #### [facility] [address] [place] [address] USAUrea nitrogen [Mass/Vol]10 mg/dLNormal9-23[facility] Memorial HospitalComment on above:Performed By: #### CMP, PT, PTT, CK, CKMB, HS TROP, CBC #### [facility] [address] [place] [address] USACreatine Kinaseon 54-17-0187HA [Catalytic activity/Vol]380 U/VNejt39-205WiwbcdsjfBrown Memorial HospitalComment on above:Performed By: #### CMP, PT, PTT, CK, CKMB, HS TROP, CBC #### [place] [address] USACreatine kinase [Enzymatic activity/volume] in Serum or PlasmaOrdered By: Brendon Mcnamara on 40-02-8779XN [Catalytic activity/Vol]380 U/L [facility] HospitalCreatinine Kinase MBon 17-57-9962SV.MB [Mass/Vol]5.7 ng/mLNormal0.6-6.3FOhioHealthComment on above:Performed By: #### CMP, PT, PTT, CK, CKMB, HS TROP, CBC #### [place] [address] USACKMB Relative Index1.5 %Normal0.00-2.50[facility] Memorial HospitalComment on above:Performed By: #### CMP, PT, PTT, CK, CKMB, HS TROP, CBC #### [facility] [address] [place] [address] USACreatinine and Glomerular filtration rate.predicted panel (S/P/Bld)Ordered By: Brendon Mcnamara on 53-81-5900Dgaspwnuey [Mass/Vol]1.03 mg/dL 0.64-1.27Brown Memorial HospitalECG 12 lead ECGon 89-51-7993JGN 12 lead ECGMERCY [facility] [address] [place] [address] Electrocardiograph Report Signed Patient: Guy Holloway MR#: [id number] : 1965 Acct:[id number] Age/Sex: 56 / M ADM Date: 02/12/22 Loc: ER Room: Type: [facility] ER Attending Dr: Ordering Provider: [...] ECGs available Confirmed by Brendon Mcnamara DO ([id number]) on 02/12/2022 2:55:30 PM Referred By: Electronically Signed By:Brendon Mcnamara DO Transcribed By: MUS Signed By Brendon Mcnamara DO 02/12 1455NormalBrown Memorial HospitalEosinophils Auto (Bld) [#/Vol] Ordered By: Brendon Mcnamara on 79-27-1348Ijmzumqnvrb (Bld) [#/Vol]0.1 10*3/uL 0.0-0.45[facility] Memorial HospitalEosinophils/100 WBC Auto (Bld)Ordered By: Brendon Mcnamara on 32-92-1345Buadomcrmuy/100 WBC (Bld)2.4 %[facility] Memorial HospitalErythrocyte distribution width Auto (RBC) [Ratio]Ordered By: Brendon Mcnamara on 77-08-6598Sbjdvskwxne distribution width (RBC) [Ratio]14.9 % 12.0-14.8[facility] Memorial HospitalEstimated glomerular filtration rate (GFR) non- AmericanOrdered By: Brendon Mcnamara on 08-64-5555KQN/1.73 sq M.predicted among non-blacks MDRD (S/P/Bld) [Vol rate/Area]> 60 mL/MinBrown Memorial HospitalGlobulin Calc (S) [Mass/Vol]Ordered By: Brendon Mcnamara on 39-10-6153Udnulslk (S) [Mass/Vol]2.6 g/dLBrown Memorial Hospital Hematocrit Auto (Bld) [Volume fraction]Ordered By: Brendon Mcnamara on 02-12-2022 Hematocrit (Bld) [Volume fraction]44.4 %38.8-50.0[facility] HospitalLaboratory - CoagulationOrdered By: Brendon Mcnamara on 38-49-8636XJ Coag (PPP) [Time]14.2 s9.0-12.9[facility] HospitalLaboratory - Hematology and Cell countsOrdered By: Brendon Mcnamara on 57-72-3488Ldounpcdh RBC/100 WBC (Bld) [Ratio]0.3 %0-0.5FOhioHealthLymphocytes Auto (Bld) [#/Vol]Ordered By: Brendon Mcnamara on 01-98-9250Muwxxotdbxh (Bld) [#/Vol]1.4 10*3/uL1.00-4.8[facility] Memorial HospitalLymphocytes/100 WBC Auto (Bld)Ordered By: Brendon Mcnamara on 44-92-2071Jgxhskqmunn/100 WBC (Bld)23.8 % [facility] Auto (RBC) [Entitic mass]Ordered By: Brendon Mcnamara on 81-77-7646JKU (RBC) [Entitic mass]29.6 pg27.5-35.2FOhioHealthMCHC Auto (RBC) [Mass/Vol]Ordered By: Brendon Mcnamara on 02-12-2022 MCHC (RBC) [Mass/Vol]34.8 g/dL32.5-35.6FOhioHealthMCV Auto (RBC) [Entitic vol]Ordered By: Brendon Guadarramaton on 31-04-3700PBR (RBC) [Entitic vol]85.1 fL83.5-101Brown Memorial HospitalMonocytes Auto (Bld) [#/Vol] Ordered By: Brendon Mcnamara on 69-39-9779Yrwayagxw (Bld) [#/Vol]0.7 10*3/uL0.0-0.8 [facility] HospitalMonocytes/100 WBC Auto (Bld)Ordered By: [facility] on 28-93-7288Uypztzczp/100 WBC (Bld)11.8 %[facility] Memorial HospitalNeutrophils Auto (Bld) [#/Vol]Ordered By: [facility] on 02-12-2022 Neutrophils (Bld) [#/Vol]3.6 10*3/uL1.8-7.7FOhioHealth Neutrophils/100 WBC Auto (Bld)Ordered By: [facility] on 02-12-2022 Neutrophils/100 WBC (Bld)61.2 %[facility] Memorial HospitalNo Panel InformationOrdered By: Brendon Guadarramaton on 88-31-3240Hiuwdxbzg GFR ()> 60 mL/MinBrown Memorial HospitalComment on above:GFR estimated reference range: According to KDOQI guidelines, <60 ml/min/1.73m2 is sufficient todiagnose a patient with chronic kidney disease.Pharmacy Creatinine Clearance (Kvhi482.27[facility] Memorial HospitalPartial Thromboplastin Timeon 45-14-5547vGLK Coag (Bld) [Time]32.3 iXwhytq13.1-36.5FOhioHealthComment on above:Result Comment: PERFORMED BY: [place] [address] PATHOLOGIST GLOBAL CLIMATE CHANGE ANALYST KAIA KENDRICK M.D.Performed By: #### CMP, PT, PTT, CK, CKMB, HS TROP, CBC #### [place] [address] USAPlatelet mean volume Auto (Bld) [Entitic vol]Ordered By: Brendon Mcnamara on 36-97-5637Btalctyd mean volume (Bld) [Entitic vol]8.2 fL 6.6-10.1FOhioHealthPlatelet poor plasma international normalized ratio (INR) by coagulation assay (relatOrdered By: Brendon Mcnamara on 48-67-8329LAZ Coag (PPP) [Relative time]1.3 {INR}[facility] Memorial HospitalComment on above:INR Therapeutic Range A) Pre- and Peroperative OAT started two weeks before surgery. NOT HIP SURGERY: 1.5 - 2.5 HIP SURGERY: 2 - 3 B) Primary and secondary prevention of venous THROMBOSIS: 2 - 3 C) Active venous thrombosis, pulmonary embolism and prevention of recurrent venous thrombosis: 2 - 3 D) Prevention of arterial thromboembolism including patients with mechanical heart valves: 3 - 4.5Platelets Auto (Bld) [#/Vol]Ordered By: Brendon Mcnamara on 31-41-3931Hylaebgmk (Bld) [#/Vol]167 10*3/uL 150-450Brown Memorial HospitalProtein [Mass/volume] in Serum or Plasma Ordered By: Brendon Mcnamara on 15-04-9724Rprqbbd [Mass/Vol]6.5 g/dL6.1-7.9 [facility] HospitalProthrombin Time INRon 82-19-4996CKC Coag (PPP) [Relative time]1.3 {INR}NormalBrown Memorial HospitalComment on above:Result Comment: INR Therapeutic Range A) Pre- and [...] patients with mechanical heart valves: 3 - 4.5Performed By: #### CMP, PT, PTT, CK, CKMB, HS TROP, CBC #### [facility] [address] [place] [address] USAPT Coag (PPP) [Time]14.2 sHigh9.0-12.9Brown Memorial HospitalComment on above:Performed By: #### CMP, PT, PTT, CK, CKMB, HS TROP, CBC #### [facility] [address] Auto (Bld) [#/Vol]Ordered By: Brendon Mcnamara on 07-34-3506OTT (Bld) [#/Vol]5.22 10*6/uL3.90-5.60[facility] Warren Hospitalerum or plasma alanine aminotransferase measurement without P-5'-P (enzymatic activiOrdered By: Brenodn Mcnamara on 37-12-3014SGR No additional P-5'-P [Catalytic activity/Vol]39 U/C94-64RknsoqffpMercy Health St. Joseph Warren Hospitalerum or plasma albumin/globulin mass ratioOrdered By: Brendon Mcnamara on 02-12-2022 Albumin/Globulin [Mass ratio]1.5 {ratio}[facility] Joseph Warren Hospitalerum or plasma alkaline phosphatase measurement (enzymatic activity/volume)Ordered By: Brendon Mcnamara on 93-73-2929UEX [Catalytic activity/Vol]64 U/Q38-85RtlavrxmaMercy Health St. Joseph Warren Hospitalerum or plasma aspartate aminotransferase measurement (enzymatic activity/volume)Ordered By: Brendon Mcnamara on 02-86-3961VRD [Catalytic activity/Vol]32 U/A44-68FjlxdxslaMercy Health St. Joseph Warren Hospitalerum or plasma calcium measurement (mass/volume)Ordered By: Brendon Mcnamara on 87-07-3970Lszbyxc [Mass/Vol]9.1 mg/dL8.2-10.2FPremier Health Miami Valley Hospital Northerum or plasma chloride measurement (moles/volume)Ordered By: Brendon Mcnamara on 02-12-2022 Chloride [Moles/Vol]103 mmol/E45-574DvletcmmqMercy Health St. Joseph Warren Hospitalerum or plasma creatine kinase MB (CKMB)/total creatine kinase (CK) ratio by calcula Ordered By: Brendon Mcnamara on 44-05-6734QU.MB Calc [Catalytic fraction]1.5 % 0.00-2.50[facility] St. Joseph Warren Hospitalerum or plasma creatine kinase MB measurement (mass/volume)Ordered By: Brendon Mcnamara on 30-96-0960TD.MB [Mass/Vol] 5.7 ng/mL0.6-6.3FPremier Health Miami Valley Hospital Northerum or plasma glucose measurement (mass/volume)Ordered By: Brendon Mcnamara on 16-75-2126Qwbyplx [Mass/Vol]79 mg/fR24-353TbhgqzjywBrown Memorial HospitalComment on above:ADA recommended reference range Random Glucose Reference Range is dependent on time and content of last meal. Glucose of more than 200 mg/dL in a nonstressed, ambulatory subject supports the diagnosis of Diabetes Mellitus.Serum or plasma potassium measurement (moles/volume)Ordered By: Brendon Mcnamara on 29-81-3386Vqykqphon [Moles/Vol]3.9 mmol/L3.5-5.1FPremier Health Miami Valley Hospital Northerum or plasma sodium measurement (moles/volume)Ordered By: Brendoncarmita Mcnamara on 76-09-0091Vbflyd [Moles/Vol]137 mmol/P646-038XkauwxcluMercy Health St. Joseph Warren Hospitalerum or plasma total bilirubin measurement (mass/volume)Ordered By: Brendon [place] on 04-01-1924Hjnxvgeow [Mass/Vol]1.6 mg/dL0.3-1.2FOhioHealthComment on above: Samples from patients who have taken Naproxen have shown spurious elevation in Total Bilirubin levels. A metabolite of Naproxen, O-desmethylnaproxen, has been shown to interfere with the Jendrcatherineik-Grof method for measuring Total Bilirubin.Serum or plasma total carbon dioxide measurement (moles/volume)Ordered By: Brendon Mcnamara on 60-84-1302IH8 [Moles/Vol]23.1 mmol/L22.0-30.0[facility] Warren Hospitalerum or plasma urea nitrogen measurement (mass/volume) Ordered By: Brendon Mcnamara on 02-94-4942Vecs nitrogen [Mass/Vol]10 mg/dL9-23 [facility] Memorial HospitalTroponin I High Sensitivityon 02-12-2022 Troponin I High Sensitivity6 pg/mLNormal0-20[facility] Comment on above:Result Comment: PERFORMED BY: [address] [place] [address] PATHOLOGIST GLOBAL CLIMATE CHANGE ANALYST KAIA KENDRICK M.D.Performed By: #### HS TROP #### [address] [address] USATroponin I High Sensitivity6 pg/mLNormal002 Lucas StreetComment on above:Result Comment: PERFORMED BY: [facility] [address] [facility] [place] [id number] PATHOLOGIST GLOBAL CLIMATE CHANGE ANALYST KAIA KENDRICK M.D.Performed By: #### CMP, PT, PTT, CK, CKMB, HS TROP, CBC #### [facility] [address] [place] [id number] USATroponin I.cardiac [Mass/volume] in Serum or Plasma by High sensitivity methodOrdered By: Brendon Mcnamara on 61-10-1470Xzgmpylr I.cardiac High sensitivity method [Mass/Vol]6 pg/mL0[facility] Vital Signs Date TimeVital SignValuePerforming SydzeaiojMxaypawo24-90-7139 09:28-0400Body uvlnjl505.4 cmGljean Kahn MD Work Phone: [facility]10-27-2022 09:28-0400Body zhrned515.08 kgRobert Kahn MD Work Phone: [facility]10-20-2022 10:45-0400Body xxzois624.9 cmKushal Christian MD Work Phone: cMer[facility] Urbana HospitalMonnsp65-19-5884 10:45-0400Body .08 kgKushal Christian MD Work Phone: cMercy Health Urbana HospitalFwxxxj69-20-6231 15:10-0400Diastolic blood gkmihdkv459 mm[Hg]MD Danielle Hernandez Work Phone: [facility]05-12-2022 15:10-0400 Heart rate65 /minMD Danielle Hernandez Work Phone: [facility]05-12-2022 15:10-0400 Respiratory rate18 /minMD Danielle Hernandez Work Phone: [facility]05-12-2022 15:10-0400 SaO2% (BldA) [Mass fraction]99 %MD Danielle Hernandez Work Phone: [facility]05-12-2022 15:10-0400 Systolic blood zbrrlphy209 mm[Hg]MD Danielle Hernandez Work Phone: [phone] [place], [place] 4601605-12-2022 10:41-0400 Body enpepr735.88 cmMD Danielle Hernandez Work Phone: [phone] [place], [place] 4601605-12-2022 10:41-0400 Body mass index (BMI) [Ratio]41.1 kg/m2MD Danielle Hernandez Work Phone: [phone]05-12-2022 10:41-0400 Body wmnhdgqegkd27.3 [degF]MD Danielle Hernandez Work Phone: [phone] [place], [place] 4601605-12-2022 10:41-0400 Body cwrasu372.43 kgMD Danielle Hernandez Work Phone: [phone] [place] [address] Encounters Encounter DateEncounter TypeCare ProviderFacilityStart: 03-28-2025 End: 15-94-8971sewgcjylrqAXUQLAUC D ZAHLERNot AvailableStart: 03-28-2025 End: 68-69-2059Ecgkge flowsheetJonathan Nader Yihler DO Work Phone: [facility] OPHTStart: 03-28-2025 End: 26-84-7128Sdztdt flowsheetJonathan Nader Yihler DO Work Phone: [facility] OPHTStart: 03-26-2025 End: 88-39-1494Wxjffq flowsheetJonathan Nader Yihler DO Work Phone: [facility] OPHTStart: 03-26-2025 End: 34-23-1947Iwngxy flowsheetJonathan Nader Yihler DO Work Phone: [facility] OPHTStart: 03-26-2025 End: 25-06-7746Jaeovm outpatient new 45 minutesJoangel luis Yihler DO Work Phone: [facility] NB OPHTComment on above:Foreign body of right cornea, initial encounter (Primary Dx)Start: 03-26-2025 End: 12-55-5375riihetoxcjTEMQGWMFKalyan Camacho AvailableStart: 12-15-2022 End: 29-09-1227zpxwldtjhpIPBWMUX M HOYFacility:[facility] Hospitaltart: 12-15-2022 End: 12-82-7772Efdxsuf encounter procedureRobert Kahn MD Work Phone: OrthopaedicsComment on above:Status post right hip replacement (Primary Dx)Start: 12-15-2022 End: 24-54-4140Zcyqgsoxjv hospital visit by physicianXr Ortho [facility] [place] Rej Work Phone: RadiologyComment on above:Status post right hip replacement [Z96.641]Start: 11-10-2022 End: 84-50-2473pullozirkuQKOHYQS M HOYFacility:[facility] Hospitaltart: 11-10-2022 End: 25-78-3512Cnnuwzisuk hospital visit by physicianXr Ortho [facility] Rej Work Phone: RadiologyComment on above:Status post right hip replacement [Z96.641]Start: 11-10-2022 End: 44-06-4744Jlduwzi encounter procedureRobert Kahn MD Work Phone: OrthopaedicsComment on above:Status post right hip replacement (Primary Dx)Start: 10-09-2022 End: 44-65-5487mtbbmfmtzyFMPRXNK M HOYFacility:[facility]tart: 10-09-2022 End: 64-90-8469Ueeacsu encounter Corie Singleton PA-C Work Phone: OrthopaedicsComment on above:Status post right hip replacement (Primary Dx)Start: 10-09-2022 End: 31-02-5165Hkmawdgyrl hospital visit by physicianXr [facility] Work Phone: RadiologyComment on above:Status post right hip replacement [Z96.641]Start: 09-23-2022 End: 62-87-0411byhythhmhxDLZDCOS M HOYFacility:[facility] HospitalStart: 09-14-2022 End: 71-95-9941todzblequbZudr Mager RNOrthopaedicsStart: 90-41-4496Jikiho Only Jacob Singleton PA-C Work Phone: OrthopaedicsComment on above:Status post total replacement of right hip (Primary Dx)Patient QuestionStart: 70-31-9670Ylzwcvzme for other preprocedural examinationJACOB HUBBARDAvita Health System [facility] Start: 09-09-2022 End: 96-00-4211mjusyfnhjfIKQXVTF M HOYFacility:[facility]tart: 15-27-9385Tibzfkgju encounterGljean Kahn MD Work Phone: [place] Physical TherapyComment on above:Appointment Start: 09-01-2022 End: 71-78-8628rxymcidejuAA DOUGLAS HOYFacility:B3Miohw: 08-31-2022 End: 09-68-2397glnbsaudkcOSAFGCA M HOYFacility:[facility]tart: 08-25-2022 End: 45-58-7456vuvksxomdhJubqwvNisha Singleton PA-C Work Phone: OrthopaedicsComment on above:Primary osteoarthritis of right hip (Primary Dx); History of DVT of lower extremityStart: 08-25-2022 End: 42-42-9050Crsbevddeymm consultation with patientJacob Singleton PA-C Work Phone: TIFFANIE JACOBO FHCStart: 85-63-9892Mephtiwau encounterGljean Kahn MD Work Phone: OrthopaedicsComment on above:QuestionStart: 08-12-2022 End: 38-54-6000dgxsxbgoddHHUQIEMProMedica Memorial Hospitaltart: 08-12-2022 End: 95-07-8549Unjgbzjli for other preprocedural examinationSuburban Community Hospital & [facility] Hospitaltart: 07-30-2022 End: 37-95-5346vdaftdrvinWYPNMFF C KOLCZUNFacility:[facility] Start: 07-30-2022 End: 00-73-4563Krmforx encounter procedureRobert Kahn MD Work Phone: OrthopaedicsComment on above:Primary osteoarthritis of right hip (Primary Dx); History of DVT of lower extremityStart: 07-20-2022 End: 89-24-0260vrnpqggewbEczqyyggc Heckmann RT(R)RadiologyComment on above: Radiology XRStart: 07-20-2022 End: 22-92-8727Maitaxf encounter procedureGacricket Mendez RT(R)ORTH EDIEAIN Comment on above:Primary osteoarthritis of left hip (Primary Dx); Primary osteoarthritis of right hip; History of total left hip replacementStart: 07-20-2022 End: 84-42-4742Dhjypcytev hospital visit by physicianJames Godfrey Work Phone: RadiologyComment on above:Pain [R52]Start: 03-24-2022 End: 67-24-9817azrtupgumvCE DANIELLE HOYFacility:Y1Jxwcb: 68-68-4607lhjzvouwfeTW DANIELLE HOYFacility:R1Nzwyk: 02-26-2022 End: 67-41-6333nwlvnkbukwUM DANIELLE HOYFacility:B5Jsxkp: 02-13-2022 End: 22-42-3865yjhfvukknrNE DANIELLE HOYFacility:T7Pgpkq: 02-12-2022 End: 31-53-8718Dptqzbdvd department patient visitDouglas M HoyFacility:[facility]tart: 02-12-2022 End: 08-81-3023Itmhqdfcx department patient visitMD Danielle Hoy Work Phone: [facility]-Emergency Room Procedures DateProcedureProcedure DetailPerforming ClinicianStart: 03-28-2025 End: 33-73-8591Eonyp medical xm&eval intermediate estab ptForeign body of right cornea, initial encounterDarrel Cabrera DO Work Phone: comment on above:Foreign body of right cornea, initial encounter (Primary Dx)Start: 65-92-1525Ntndz hip unilateral with pelvis 2-3 viewsJacob Singleton PA-C Work Phone: Start: 35-04-5905Rbqxb hip unilateral with pelvis 2-3 viewsRobert Kahn MD Work Phone: Start: 51-21-5768Qsjth hip unilateral with pelvis 2-3 viewsJacob Singleton PA-C Work Phone: Start: 80-08-1953Cjznvnnc screenJACOB SINGLETON Comment on above:Order Comment: Specimen Type: BLOOD SPECIMENOrdering Facility: [facility] Address:[address] [place] [address] Performed By: #### [id number] ####CC MAIN BLOOD BANKCLIA [id number] [address] STATES OF AMERICAStart: 26-89-4587Oryjt s aureus amplified probe tqJacob Singleton PA-C Work Phone: Start: 15-95-9777Zozhj hip unilateral with pelvis 2-3 viewsKushal Christian MD Work Phone: Start: 94-09-3915HM of chestMD Danielle Mary Work Phone: Plan of Treatment DateCare ActivityDetailAuthorStart: 16-93-2166Iwmuf microalbumin profile DTaP,Tdap,Td Vaccine (2 - Tdap)[facility]: 14-78-5437WRGUKOEJ SCREEN DIABETES SCREENMercy Health – The Jewish Hospitaltart: 20-79-8345Gqkfndem ScreeningDiabetes ScreeningMercy Health – The Jewish Hospitaltart: 95-02-2959RCHEKZUR SCREENDIABETES SCREEN [facility]: 76-96-8174Krliodjol vaccinationInfluenza Vaccine (Season Ended)[facility] HealthcareStart: 03-28-2025 End: 95-39-3160Pkwhhlh encounter jojpheoxx67/25/2025 2:30 PM EDT Office Visit [facility] [address] [place] [id number] Darrel Cabrera, DO [address] [place] [address] Felecia ACUÑA OPHTComment on above:ArrivedStart: 03-26-2025 End: 81-87-0809Zhcpzck encounter ayzxrlkzq68/23/2025 1:00 PM EDT Office Visit [facility] [address] [place] [address] Darrel Cabrera, DO [address] [place] [address] Felecia ACUÑA OPHTComment on above:ArrivedStart: 01-73-0027Obald-19 Vaccine ( season)Covid-19 Vaccine ( season)[facility]: 37-28-7946Dpucnpcah vaccinationInfluenza Vaccine (#1)[facility]: 45-87-0202RSQ Vaccine (1 - 1-dose 60+ series)RSV Vaccine (1 - 1-dose 60+ series)[facility]: 73-89-3314FNZ Vaccine (1 - Risk 60-74 years 1-dose series)RSV Vaccine (1 - Risk 60-74 years 1-dose series) [facility]: 49-46-8337Nelyk-19 Vaccine ( season)Covid-19 Vaccine ( season)[facility]: 55-29-3297Swkwvwcsn vaccinationInfluenza Vaccine (#1)[facility]: 13-58-0279MNWVAQHRAG ASSESSMENTDEPRESSION ASSESSMENTMercy Health [facility] Hospitaltart: 07-30-2022 End: 95-69-5026Bmupqqv [Mass/volume] in Serum or PlasmaALBUMIN BLD Lab Routine Primary osteoarthritis of right hip Expected: 07/30/2022, Expires: 09/29/2022 [facility] Work Phone: Comment on above:Expected: 07/30/2022, Expires: 09/29/2022tart: 07-30-2022 End: 59-56-5758GCZ W Auto Differential panel - BloodCBC + DIFF Lab Routine Primary osteoarthritis of right hip Expected: 07/30/2022, Expires: 09/29/2022 [facility] Work Phone: Comment on above:Expected: 07/30/2022, Expires: 09/29/2022tart: 07-30-2022 End: 54-78-9422Erbjzrvozcndq metabolic 2000 panel - Serum or PlasmaCOMP METABOLIC PANEL Lab Routine Primary osteoarthritis of right hip Expected: 07/30/2022, Expires:09/29/2022[facility] Work Phone: Comment on above:Expected: 07/30/2022, Expires: 09/29/2022tart: 07-30-2022 End: 72-22-4535NJQJFOO BLOOD TYPECONFIRM BLOOD TYPE Blood Bank Routine Primary osteoarthritis of right hip Expected: 07/30/2022, Expires: 09/29/2022[facility] Work Phone: Comment on above:Expected: 07/30/2022, Expires: 09/29/2022tart: 07-30-2022 End: 76-65-9025XPRT AND SCREEN,30 DAYTYPE AND SCREEN,30 DAY Blood Bank Routine Primary osteoarthritis of right hip Expected: 07/30/2022,Expires: 09/29/2022 [facility] Work Phone: Comment on above:Expected: 07/30/2022, Expires: 09/29/2022tart: 66-13-8714Odfvonwof vaccinationINFLUENZA (#1)[facility] Start: 63-19-8626VBYPB-19 VACCINE (4 - Booster for Pfizer series)COVID-19 VACCINE (4 - Booster for Pfizer series)[facility]: 10-04-2021 DEPRESSION ASSESSMENTDEPRESSION ASSESSMENTMercy Health – [facility] Hospitaltart: 10-22-2018 DIABETES SCREENDIABETES SCREENMercy Health – The Jewish Hospitaltart: 19-75-9427WMJSNDDP CANCER SCREENING DISCUSSIONPROSTATE CANCER SCREENING DISCUSSIONCleOhioHealth Mansfield Hospitaltart: 67-65-8931Lxrqsajo specific antigen measurementProstate Cancer Screening DiscussionMercy Health – The Jewish Hospitaltart: 65-61-5875BHUFVHPQ VACCINE (1 of 2)SHINGRIX VACCINE (1 of 2)[facility]: 48-36-9386RHJCZVNEZ (FIT-DNA)COLOGUARD (FIT-DNA)[facility]: 18-37-3455VedamcymyqqYBRDMDKONERSfqroczmw Clinic Start: 30-06-7462FPHAMYJKAJ CANCER SCREENINGCOLORECTAL CANCER SCREENINGMercy Health – [facility] Hospitaltart: 13-77-2420HY COLONOGRAPHYCT COLONOGRAPHYMercy Health – The Jewish Hospitaltart: 33-92-6504QTUIX OCCULT BLOODFECAL OCCULT BLOODMercy Health – The Jewish Hospitaltart: 2008 Screening for malignant neoplasm of colonMercy Health – The Jewish Hospitaltart: 2008 SIGMOIDOSCOPYSIGMOIDOSCOPYMercy Health – The Jewish Hospitaltart: 37-57-5526Qopmf 1996 panel - Serum or PlasmaLipid ScreeningMercy Health – The Jewish Hospitaltart: 33-55-0102Muzkl panelLipid ScreeningMercy Health – The Jewish Hospitaltart: 34-70-3454WFBNA SCREENLIPID SCREENMercy Health – The Jewish Hospitaltart: 84-11-7379Jxqhm microalbumin profileDTAP,TDAP,TD (1 - Tdap) [facility]: 83-98-5547OWUTAW PCP TEAM CHRONIC DISEASE VISITANNUAL PCP TEAM CHRONIC DISEASE VISITMercy Health – The Jewish Hospitaltart: 98-01-2032Djgpkrk Screening Anxiety ScreeningMercy Health – The Jewish Hospitaltart: 60-58-6273JR CONTROLLED (<130/80)BP CONTROLLED (<130/80)[facility]: 05-54-2128Svnzhzmhig Screening Depression ScreeningMercy Health – The Jewish Hospitaltart: 36-89-4884QFTGQIXOB C SCREENING HEPATITIS C SCREENINGMercy Health – The Jewish Hospitaltart: 38-10-7873Dapbudpst C screening Hepatitis C ScreeningMercy Health – The Jewish Hospitaltart: 70-15-6255LEU SCREENINGHIV SCREENING [facility]: 90-57-7220YUL screeningHIV ScreeningOhio State University [facility] Start: 67-57-2652EEQDSARGZ B (1 of 3 - 3-dose series)HEPATITIS B (1 of 3 - 3- dose series)[facility]: 94-69-5347Hqnsokcbc for malignant neoplasm of colonNOMS HealthcarePatient EducationDehydration, Adult (DC)[facility] Work Phone: Patient referralMer[facility] Health [facility] Work Phone: End: 73-21-8672VP HIP GENERAL 3V PELV/AP/LAT RIGHTXR HIP GENERAL 3V PELV/AP/LAT RIGHT Radiology Routine Primary osteoarthritis of right hip 1 Occurrences starting 07/15/2022 until 08/14/2023[facility] Work Phone: comment on above:1 Occurrences starting 07/15/2022 until [facility] Payers DatePayer CategoryPayerPolicy [id number] [facility] Member Subscriber Plan / Payer (Effective 2024-Present) Name: Guy Holloway Relation to Subscriber: Self Name: Guy Holloway Payer ID: Not on file Type: Not on file Address: [place] [id number] 43-08-0390Xomk-yryq41fj390-5f4a-1qa4-x182-m99ki3k141d820-11-5360Cdhrxad 200tb7ye-2904-2320-aw00-ev0d3[id number] .1.242924.3.57[id number] 2..1.056647.3.57[id number] 2.1.667843.3.57[id number] 2.1.155061.3.579.[id number] 2.16.840.1.032839.3.579.[id number] 2.16.840.1.786689.3.579.[id number] 2..840.1.371279.3.579.2.[id number] 532586q1-zu3r-9470-cv2p-[id number]-[id number] 2.840.1.613986.3.579.2.531 Social History DateTypeDetailFacilityStart: 02-12-2022 End: 18-12-7639Hssybxy smoking status NHISNever smoked tobacco (finding) [facility]: 68-70-8985Cbr Assigned At BirthMale [facility]: 10-14-2015 End: 87-17-0255Yfjdifo use and exposureSmokeless tobacco non-userMercy Health – The Jewish Hospitaltart: 01-22-2016 End: 27-86-1871Metwuag intakeCurrent drinker of alcohol (finding)[facility]: 12-49-1079Boykqmq CommentmonthlyCmemorial health system [facility] ClinicStart: 1963 Sex Assigned At BirthNot on filePrather ClinicStart: 07-10-2022 End: 23-92-6222Jsireask to SARS-CoV-2 (event)Not sureMercy Health – The Jewish Hospitaltart: 19-94-2822Nxurliq Commentmonthly maybeMercy Health – The Jewish Hospitaltart: 09-09-2022 End: 31-37-8071Ncgowzg of Social functionMercy Health – The Jewish Hospitaltart: 09-09-2022 End: 80-95-3262Zhwuuct use panelAultman Hospital Score (1-100), lower number is lower unxm47DwzpzzavhClermont County Hospital smoking status NHISTobacco smoking consumption unknownNOMS Healthcare Medical Equipment Procedure CodeEquipment CodeEquipment Original TextEquipment IdentifierDates Egt-Vb-D-Kind Implant - [id number]: 12-08-1203Eqsikla on above: Description: Active Articulation head Head M1v-Mjito Ringloc Standard Offset Cocrmo Femoral Modular 28mm Sterile - [id number]_ingXbxzu: 55-09-9815Hdbwjtdtf G7 Arcx Ofst Liner 36mm Size H [id number]_impStart: 39-00-6539Jogg Taperloc 133d 13 Pps 34.3mm Femoral Type 1 Taper Complete Reduced - [id number]_irlPhgks: 81-70-1605Qvblq G7 6.5mm Dome 15mm Acetabular Low Profile Hip - [id number]_ngnNgbrt: 09-23-2022 Nwh-Ek-P-Kind Implant - [id number]_mjaQkqvy: 56-28-6665Essbqcu on above: Description: Taperloc Femoral Stem Cup Z0v-Hutyfh Tri-Brandyn Acetabular 60mm 54mm Hip - [id number]_hwcBlvln: 24-63-7577Tpzvuiv on above:Description: M2A Magnum Tri-Brandyn Cup TEST ONCE A DAYStart: 07-11-2024 Clinical Notes 07-20-2022 to 03-26-2025 Note Date & JgxiBsvkSthmmvez83-97-7521 History of Present illness Narrative* Darrel Cabrera, DO - 03/26/2025 1:00 PM EDT Images from the original note [...] fermin was applied to the eye and theywere sent to the waiting room in satisfactory condition. - Cont Emycin fermin right eye (OD) q2-3hrs. Will follow up in 2 days and start topical steroid to minimize possible scarring. Vision is guarded. 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 documented in this encounterMissouri Baptist Hospital-SullivanUsjplqlgey56-27-8576 NoteHNO ID: [id number] Author: Robert Kahn MD Service: ? Author [...] weeks 5) Medication changes aware of dental prophOhioHealth [facility]03-14-2023 NoteHNO ID: [id number] Author: RT Frandy(R) Service: Radiology Author Type: [...] BY: RT Frandy(R) December 15, 2022 1:54 [facility]03-14-2023 History of Present illness Narrative* Robert Kahn MD - 12/15/2022 3:39 PM EDT CC: SP Right KARTHIK Concerns: none intends [...] aware of dental prophy documented in this encounterOhio State University [facility]03-14-2023 History of Present illness Narrative* Gilma Chavez RT(R) - 12/15/2022 2:15 PM EDT Radiology Service Progress Note PATIENT NAME: Guy Holloway DATE OF SERVICE: December 15, 2022 TIME: 1:54 PM PATIENT IDENTITY VERIFICATION COMPLETED USING TWO (2) IDENTIFIERS: Name and Date of confirmedby patient verbally. FALL SCREENING: Has the patient [...] 15, 2022 1:54 PM documented in this encounterOhio State University [facility] Center02-07-2023 NoteHNO ID: [id number] Author: Robert Kahn MD Service: ? Author [...] is palpable can consider CSI at month 3.[facility]02-07-2023 NoteHNO ID: [id number] Author: RT Eloy(Jacy) Service: Radiology Author Type: Rfid Specialist Type: Progress Notes Filed: 11/10/2022 3:15 PM [...] RT Farooq/RT Eloy(R) November 10, 2022 3:14 PMCKettering [facility]02-07-2023 History of Present illness Narrative* Robret Kahn MD - 11/10/2022 3:37 PM EST CC: SP Right KARTHIK Concerns: feels an [...] CSI at month 3. documented in this encounterOhio State University [facility] Center02-07-2023 History of Present illness Narrative* Daniella Barfield RT(R) - 11/10/2022 3:15 PM EST Radiology Service Progress Note PATIENT NAME: Guy Holloway DATE OF SERVICE: November 10, 2022 TIME: 3:14 PM PATIENT IDENTITY VERIFICATION COMPLETED USING TWO (2) IDENTIFIERS: Name and Date of confirmedby patient verbally. FALL SCREENING: Has the patient had 2 falls in the last year or 1 fall with injury or currently using an Ambulatory Assistive Device (Walker, Cane, Wheelchair, Crutches, etc.)? Yes, Patient High Riskfor Falls What interventions were put in place to prevent falls during this visit? Instructed Patient to Callfor Help if Needed and Increased Observations by Caregivers PATIENT GENDER DATA: Male PATIENT RELEVANT IMPLANT DATA REVIEWED: Not Applicable RADIOLOGY DEPARTMENT: General X-ray: Exam(s) Completed: Pelvis X-Ray: Pelvis with Hip Right PERIPHERAL IV DATA: Not applicable SIGNED BY: RT Farooq/DANIELLA Lyons) November 10, 2022 3:14 PM documented in this encounterOhio State University [facility]01-06-2023 NoteHNO ID: [id number] Author: Jacob Singleton PA-C Service: ? Author Type: Physician Executive Chef Type: Progress Notes Filed: 10/09/2022 10:44 AM [...] dental antibiotic prophy, [facility]2023 NoteHNO ID: [id number] Author: RT Juan Jose(R) Service: Radiology Author [...] RT Juan Jose(R) October 09, 2022 9:52 [facility]01-06-2023 History of Present illness Narrative* Jacob Singleton PA-C - 10/09/2022 10:03 AM EST CC: SP Right KARTHIK Concerns: none PE: [...] pharmacy Jacob Singleton PA-C documented in this encounterOhio State University [facility] Center01-06-2023 History of Present illness Narrative* Ellyn Helton RT(R) - 10/09/2022 9:45 AM EST Radiology Service Progress Note PATIENT NAME: Guy Holloway DATE OF SERVICE: October 09, 2022 TIME: 9:52 AM PATIENT IDENTITY VERIFICATION COMPLETED USING TWO (2) IDENTIFIERS: Name and Date of confirmedby patient verbally. FALL SCREENING: Has the patient had 2 falls in the last year or 1 fall with injury or currently using an Ambulatory Assistive Device (Walker, Cane, Wheelchair, Crutches, etc.)? Yes, Patient High Riskfor Falls What interventions were put in place [...] 09, 2022 9:52 AM documented in this encounterOhio State University [facility] Center12-22-2022 NoteHNO ID: [id number] Author: Cheyanne Ray (Regroover) Service: ? Author Type: ? Type: Plan [...] or your Primary Care Provider. Cheyanne Ray (Regroover) PAGER: yolanda September 24, 2022 3:47 PMABeaver Valley HospitalWbpfiogj28-48-4319 NoteHNO ID: [id number] Author: Goldie Rosas RN Service: Care Management [...] Name/Phone: Danielle Hernandez MD Other Caregiver Name/Phone: [facility] TRANSPORTATION ARRANGEMENTS: Transportation Arrangements: Car Discharge Information Row Name Admission (Discharged) from 09/23/[address] [facility] SIGNATURE: Goldie Rosas RN PATIENT NAME: Guy Holloway DATE: September 24, 2022 TIME: 2:00 PM PAGER/CONTACT #: [phone] Absthwji37-27-8294 NoteHNO ID: [id number] Author: Goldie Rosas RN Service: Care Management Author Type: Registered Nurse Type: Care Mgt Initial Assessment Filed: 09/24/2022 12:03 PM Note Text: CARE MANAGEMENT: ASSESSMENT AND DISCHARGE PLAN SERVICE DATE: September 24, 2022 SERVICE TIME: 12:00 PM PRIMARY CARE PHYSICIAN: Danielle Hernandez MD, MD Primary Contact: Extended Emergency Contact Information Primary Emergency Contact: Desiree Payton [employer] Relation: Mother ADMISSION STATUS: Extended Recovery Insurance Provider: MCKENZIE SHEFFIELD PPMin OOS NEEDS PRIOR TO DISCHARGE Needs Prior to Discharge: Ready for Discharge POTENTIAL TRANSITION PLANS Outpatient Therapy;Home OT/PT Patient's perception of need for this admission: hip replacement ADVANCE DIRECTIVES Current Advance Directive: None Pet Sitter Attempted to Assist with AD Completion: Yes [...] discharge within 30 days: No PATIENT SCREEN 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/Employment Legal Assistant Stated Goals: To return home to life [...] PT ?Home PT [place] OF CHOICE EXPLAINED: [place] of Choice Given: No (Pt states he [...] 24, 2022 TIME: 11:59 AM CONTACT #: [phone] Bitekruq62-29-5026 NoteHNO ID: [id number] Author: Robert Kahn MD Service: Orthopaedic Surgery Author Type: Physician Type: Progress Notes Filed: 09/23/2022 6:18 PM Note Text: SP Rt KARTHIK DF PF EHL intact DP2+ No edema XR satisfactory AP SP Rt KARTHIK Neuro vasc intact WBAT Ancef Elequis starting [facility]12-21-2022 NoteHNO ID: [id number] Author: Scott Watson APRN.LINE SERVICE SUPERVISOR Service: ? Author Type: Nurse Electric Stove Mechanic Type: Anesthesia Procedure Notes Filed: 09/23/2022 9:30 AM Note Text: ANESTHESIOLOGY PROCEDURE NOTE Airway General Information Procedure Start Time/Medication Administration: 09/23/2022 8:51 AM Patient location during procedure: OR Timeout Performed Pre-procedure: timeout performed Consent Obtained: Yes Patient identity confirmed: arm band and patient Staffing LINE SERVICE SUPERVISOR: Scott Watson APRN.LINE SERVICE SUPERVISOR Performed by: ADILENE Indications and Patient Condition [...] 1 view with glidescope. SIGNATURE: Scott Watson APRN.LINE SERVICE SUPERVISOR PATIENT NAME: Guy Holloway DATE: September 23, 2022 TIME: 9:23 AM CSN: [id number] Ptnwiizq30-21-3702 Nurse Note* Gilma Drew RN - 09/14/2022 1:13 PM EST ORTHOPAEDIC SURGERY PRE-OP PATIENT Guy Holloway is a 57 year old male PROCEDURE: right Total Hip PROCEDURE DATE: 09/23/22 CHECKLIST: Informed Consent: Yes- In [employer] [facility]: No Pre-op Skin Preparation Cloths & [...] Effects -Afterhours Number Given- page ortho resident consumer insights specialist at [phone] METHOD OF INSTRUCTION: Individual instruction, Written instruction [...] -Call office if questions/concerns -Afterhour for resident consumer insights specialist INFECTION MANAGEMENT: -Signs and symptoms of an infection -Importance of contacting the physician MEDICATION SIDE EFFECTS: -Side effects associated with the medication that warrant a call to the physician WOUND CARE: -Correct procedure to perform wound care DISCHARGE PLAN: -Patient referred to rapid recovery program and Eit[place] of Choice was offered to Patient about [...] take the following meds per anesthesia guidelines perPACC Anticoagulation therapy consisting of Eliquis pt has h/o dvt, toi hose, compression wraps, and exercise discussed with patient. Pt. has prescription drug coverage. Autologous donation discussed with patient, Pt will receive acid.. Patient lives with his family and plans to go home with OP-PT at [facility]. Patient has walker Yes , cane [...] time. Gilma Drew RN documented in this encounterOhio State University [facility] Center12-08-2022 Miscellaneous Notes* Telephone Encounter - Sandra Elmore RN - 09/10/2022 3:07 PM EST I returned the patient's call regarding requested physical therapy order fax. Order was faxed to the patient's preferred therapy facility to begin the process for his upcoming hip surgery. Patient also requested a letter faxed to his employer stating date of surgery and estimated time off of 3 months. Letter faxed to [facility]-patient's employer. documented in this encounterOhio State University [facility] Center12-06-2022 Miscellaneous Notes* Telephone Encounter - Jania Santamaria - 09/08/2022 3:29 PM EST LVM for patient to call with the name and phone number of facility he would like to go to for outpatient PT. documented in this encounterOhio State University Wexner Medical Center11-22-2022 NoteHNO ID: [id number] Author: Jacob Singleton PA-C Service: ? Author Type: Physician Executive Chef Type: Progress Notes Filed: 08/25/2022 4:05 PM Note Text: Called patient to discuss pre op questions. He consented for a right KARTHIK at his last office visit and consults were placed to vascular surgery or cardiology regarding his history of DVT following contralateral hip replacement. He was seen by Courtney Rosas NP and cleared for orthopedic surgery. I will notify our production scheduler that patient is ready to set a surgery date. I spent a total of 7 minutes on the date of the service which included preparing to see the patient, completing clinical documentation, and counseling and educating the patient/family/caregiver. [facility]-22[facility] History of Present illness Narrative* Jacob Singleton PA-C - 08/25/2022 3:47 PM EST Called patient to discuss pre op questions. He consented for a right KARTHIK at his last office visit and consults were placed to vascular surgery or cardiology regarding his history of DVT following contralateral hip replacement. He was seen by Courtney Rosas NP and cleared for orthopedic surgery. I will notify our production scheduler that patient is ready to set a surgery date. I spent a total of 7 minutes on the date of the service which included preparing to see the patient, completing clinical documentation, and counseling and educating the patient/family/caregiver. Jacob Singleton PA-C documented in this encounterOhio [facility]11-[facility]22 Miscellaneous Notes* Telephone Encounter - Connie Bennett MA - 08/25/2022 8:48 AM EST Patient scheduled for provider phone call today. * Telephone Encounter - Allyson Ellis Pss - 08/24/2022 3:59 PM EST Patient would like a call back from Dr Kahn regarding his up coming procedure and getting it scheduled. He did all the cardiology steps and he's like a call to discuss where the process it at. Pleasecall and advise. documented in this encounterOhio State University [facility]11-15-2022 NoteReview of b/p trends at home- remains uncontrolled 139-163/ 75-93. Will add amlodipine 5 mg daily for HTN, staff to call pt and update and ask if he had BMP completed as prescribed at last visit.[facility]11-09-2022 NoteRemains on eliquis anticoagulationUnLima [facility] Hospital11-09-2022 NoteRemains on Eliquis anticoagulation per PCP [facility]11-09-2022 NoteCurrently uncontrolled in office- pt does not have [...] call patient next week to review blood pressuresUnLima Memorial Hospital11-09-2022 NoteRCRI- 0???points Class I Risk 3.9???% 30-day risk of , NC, or cardiac arrest EKG today sinus bradycardia [...] previous left hip surgery he developed extensive DVT/PE.[facility]11-09-2022 NoteUTP CARDIOLOGY PROGRESS NOTE HPI New patient here to re-establish [...] Risk 3.9 % 30-day risk of , NC, or cardiac arrest EKG today sinus bradycardia [...] (CMS/HCC) Remains on eliquis anticoagulation RTC 1-6 months[facility]10-27-2022 NoteHNO ID: [id number] Author: Robert Kahn MD Service: ? Author Type: Physician Type: Progress Notes Filed: 07/30/2022 12:19 PM Note Text: CONSULT ORTHOPAEDIC: HIP PRIMARY CARE PHYSICIAN: Danielle Hernandez MD, MD REFERRING PROVIDER: Kushal Christian [address] [facility] [address] ASSESSMENT AND PLAN: Impression: Right Hip Severe [...] activities which include walking 2 blocks, doing onion tier, exercise, rising from a sitting position, standing [...] normal High: dx o (more content not included)...[facility]10-27-2022 Instructions* Patient Instructions* Jacob Singleton PA-C - 07/30/2022 9:44 AM EDT Instructions for Blood Management Decreasing the need for blood transfusions after surgery can help your body heal faster and help your body fight infection better. Blood Management will check your blood and iron levels to see if youwould benefit from having treatment to help increase your blood counts before your surgery. What do you need to do? 1. Go and have your labs (CBC, Ferritin, Iron Studies) drawn today or within the next three days atthe nearest [facility] lab. If you would like, [...] us: If you are having surgery at [facility] or If you are having surgery at [facility], [place], [facility] , [place], [place], [place], [facility], or [facility] documented in this encounterOhio State University [facility]10-27-2022 History of Present illness Narrative* Robert Kahn MD - 07/30/2022 9:26 AM EDT CONSULT ORTHOPAEDIC: HIP PRIMARY CARE PHYSICIAN: Danielle Hernandez MD, MD REFERRING PROVIDER: Kushal Christian II [address] [facility] [address] ASSESSMENT & PLAN: Impression: Right Hip Severe [...] activities which include walking 2 blocks, doing onion tier, exercise, rising from a sitting position, standing for prolonged periods of time, and getting in and out of a car. The problem began limiting activities 1-3 years ago. Currently the pain in the joint is rated at 8 out of 10 with minimal activity. The pain is constantand is located in the right hip. The [...] days. Guy's 30 day chance of readmission is3.07%. Readmission Probability 3.07 % (within 30 days [...] office visit today: History of DVT, on [place]ki Singleton PA-C Attending Note I have personally [...] 2022 TIME: 9:28 AM documented in this encounterOhio State University [facility]10-20-2022 NoteHNO ID: [id number] Author: Kushal Christian MD Service: ? Author Type: Physician Type: Progress Notes Filed: 07/23/2022 11:21 AM Note Text: see dictated not e Kushal Christian II [facility]10-20-2022 History of Present illness Narrative* Kushal Christian MD - 07/23/2022 11:19 AM EDT see dictated not e Kushal Christian II, MD documented in this encounterOhio State University [facility]10-17-2022 NoteHNO ID: [id number] Author: RT Tri(R) Service: ? Author Type: Rfid Specialist Type: Progress Notes Filed: 07/20/2022 12:57 PM [...] PERIPHERAL IV DATA: Not applicable SIGNED BY: Miriam Vanessa RT(R) July 20, 2022 12:57 [facility]10-17-2022 NoteHNO ID: [id number] Author: Kushal Christian MD Service: Orthopaedic Surgery Author Type: Physician Type: Progress Notes Filed: 07/28/2022 9:32 AM Note Text: [facility] [address] [place], [place] [address] CLINIC NOTE Department of Orthopaedics - Teressa Christian II, M.D. NAME: [facility] NO.: [id number] DATE OF SERVICE: 07/20/2022 CHIEF COMPLAINT: Severe [...] of his size difficult. I have suggested 70-or-18-pound weight loss. In the interim, I have suggested that if he wants something done with his hip before, I would see if 1 of our other joint replacement partners had an approach that would be more appropriate for his size. The patient seemed to understand this. We will make arrangements. Dictated By: Kushal Christian II, M.D. Date Dictated: 07/21/2022 Date Typed: [facility] 07/21/2022 JOB# [id number] Health Behavioral Medical Center10-17-2022 History of Present illness Narrative* RT Tri(R) - 07/20/2022 12:57 PM EDT Radiology Service Progress Note PATIENT NAME: Guy Holloway DATE OF SERVICE: July 20, 2022 TIME: 12:57 PM PATIENT IDENTITY VERIFICATION COMPLETED USING TWO (2) IDENTIFIERS: Name and Date of confirmedby patient verbally. FALL SCREENING: Has the patient [...] 20, 2022 12:57 PM documented in this encounterUniversity [facility]als [facility] noteNo assessment information availableMarietta Osteopathic Clinic Work Phone: Evaluation note* Diagnosis Primary osteoarthritis of left hip- Primary Primary localized osteoarthrosis, pelvic region and thigh Primary osteoarthritis of right hip Primary localized osteoarthrosis, pelvic region and thigh History of total left hip replacement documented in this encounter [facility] note* Diagnosis Primary osteoarthritis of right hip- Primary Primary localized osteoarthrosis, pelvic region and thigh History of DVT of lower extremity Personal history of venous thrombosis and embolism [facility] Primary osteoarthritis of right hip- Primary Primary localized osteoarthrosis, pelvic region and thigh History of DVT of lower extremity Personal history of venous thrombosis and embolism documented in this encounter [facility]* Diagnosis Status post total replacement of right hip- Primary Primary osteoarthritis of right hip Primary localized osteoarthrosis, pelvic region and thigh documented in this encounter [facility]* Diagnosis Status post right hip replacement- Primary Hip joint replacement by other means [facility]* Diagnosis Status post right hip replacement- Primary Hip joint replacement by other means documented [facility]* Diagnosis Status post right hip replacement Hip joint replacement by other means documented [facility]* Diagnosis Status post right hip replacement Hip joint replacement by other means documented [facility]* Diagnosis Pain Generalized pain Preop examination- Primary Preoperative examination, unspecified Primary hypertension Unspecified essential hypertension History of DVT (deep vein thrombosis) Personal history of venous thrombosis and embolism Anticoagulated Long-term (current) use of anticoagulants Class 3 severe obesity with body mass index (BMI) of 40.0 to 44.9 in adult, unspecified obesity type, unspecified whether serious comorbidity present (HCC) documented in this encounter [facility]* Diagnosis Foreign body of right cornea, initial encounter- Primary [facility] Diagnosis Foreign body of right [...] with 4 wk taper. documented in this encounterNOAR HealthcareHospital Discharge instructions Additional Instructions Continue taking your blood pressure medications, stay well-hydrated Return for worsening or changing chest pain, lightheadedness, nausea or vomiting [facility] Work Phone: [facility] for referral (narrative)* Diagnostic Procedure Only (Routine) - Pending ReviewSpecialtyDiagnoses / ProceduresReferred By ContactReferred To ContactXR IMAGING Diagnoses Primary osteoarthritis of right hip Procedures XR HIP GENERAL 3V PELV/AP/LAT RIGHT RADEX HIP UNILATERAL WITH PELVIS 2-3 VIEWS Kushal Christian MD [address] [place] [address] Xr Imaging Referral IDStatusReasonStart DateExpiration DateVisits RequestedVisits [id number] Review Auto-Generated Referral .[facility] for referral (narrative)* Diagnostic Procedure Only (Routine) - ClosedSpecialtyDiagnoses / ProceduresReferred By ContactReferred To ContactXR IMAGING Diagnoses Status post right hip replacement Procedures XR HIP GENERAL 3V PELV/AP/LAT RIGHT RADEX HIP UNILATERAL WITH PELVIS 2-3 VIEWS Jacob Singleton PA-C [address] [place] [address] Xr Imaging Referral IDStatusReasonStart DateExpiration DateVisits RequestedVisits [id number] Auto-Generated Referral / [facility] for referral (narrative)* Diagnostic Procedure Only (Routine) - ClosedSpecialtyDiagnoses / ProceduresReferred By ContactReferred To ContactXR IMAGING Diagnoses Status post right hip replacement Procedures XR HIP GENERAL 3V PELV/AP/LAT RIGHT RADEX HIP UNILATERAL WITH PELVIS 2-[place] [address] [place] [address] Xr Imaging Referral IDStatusReasonStart DateExpiration DateVisits RequestedVisits [id number] Auto-Generated Referral [facility] for referral (narrative)* Diagnostic Procedure Only (Routine) - ClosedSpecialtyDiagnoses / ProceduresReferred By ContactReferred To ContactXR IMAGING Diagnoses Status post right hip replacement Procedures XR HIP GENERAL 3V PELV/AP/LAT RIGHT RADEX HIP UNILATERAL WITH PELVIS 2-3 VIEWS Jacob Singleton PA-C [address] [place] [address] Xr Imaging Referral IDStatusReasonStart DateExpiration DateVisits RequestedVisits [id number] Auto-Generated Referral [facility] for referral (narrative)* Diagnostic Procedure Only (Routine) - ClosedSpecialtyDiagnoses / ProceduresReferred By ContactReferred To ContactXR IMAGING Diagnoses Status post right hip replacement Procedures XR HIP GENERAL 3V PELV/AP/LAT RIGHT RADEX HIP UNILATERAL WITH PELVIS 2-3 VIEWS Jacob Singleton PA-C [address] [place] [address] [place] [address] Referral IDStatusReasonStart DateExpiration DateVisits RequestedVisits [id number] Auto-Generated Referral [facility] for referral (narrative)* Diagnostic Procedure Only (Routine) - ClosedSpecialtyDiagnoses / ProceduresReferred By ContactReferred To ContactXR IMAGING Diagnoses Status post right hip replacement Procedures XR HIP GENERAL 3V PELV/AP/LAT RIGHT RADEX HIP UNILATERAL WITH PELVIS 2-[place] [address] [place] [address] [place] [address] Referral IDStatusReasonOsyka DateExpiration DateVisits RequestedVisits [id number] Auto-Generated Referral / [facility] for referral (narrative)* Diagnostic Procedure Only (Routine) - ClosedSpecialtyDiagnoses / ProceduresReferred By ContactReferred To ContactXR IMAGING Diagnoses Status post right hip replacement Procedures XR HIP GENERAL 3V PELV/AP/LAT RIGHT RADEX HIP UNILATERAL WITH PELVIS 2-3 VIEWS Jacob Singleton PA-C [address] [place] [address] [place] [address] Referral IDStatusReasonStwhitney DateExpiration DateVisits RequestedVisits [id number] Auto-Generated Referral / [facility] for referral (narrative)* Diagnostic Procedure Only (Routine) - ClosedSpecialtyDiagnoses / ProceduresReferred By ContactReferred To ContactXR IMAGING Diagnoses Pain Procedures XR HIP GENERAL 3V PELV/AP/LAT RIGHT RADEX HIP UNILATERAL WITH PELVIS 2-3 VIEWS Kushal Christian MD [address] [place] [address] [place] [address] Referral IDStatusReasonOsyka DateExpiration DateVisits RequestedVisits [id number] Auto-Generated Referral / [facility] for visit Narrative* Diagnostic Procedure Only (Routine) - ClosedSpecialtyDiagnoses / ProceduresReferred By ContactReferred To Contact XR IMAGING Diagnoses Pain Procedures XR HIP GENERAL 3V PELV/AP/LAT RIGHT RADEX HIP UNILATERAL WITH PELVIS 2-3 VIEWS Kushal Christian MD [address] [place] [address] [place] [address] Referral IDStatusReasonStart DateExpiration DateVisits RequestedVisits [id number] Auto-Generated Referral / [facility] Chief Complaint and Reason for [...] Family History Records Found Reason for Referral SpecialtyDiagnoses / ProceduresReferred By ContactReferred To ContactVascular Medicine Diagnoses History of DVT of lower extremity Procedures CONSULT TO VASCULAR MEDICINE OFFICE/OUTPATIENT [facility] MDM 60-74 MINUTES Jacob Singleton PA-C [address] [place] [address] Referral IDStatusReasonStart DateExpiration DateVisits RequestedVisits [id number] PCP Requested Referral [id number] / ProceduresReferred By ContactReferred To ContactREHAB AND SPORTS THERAPY INS Diagnoses Status post total replacement of right hip Procedures CONSULT TO PHYSICAL THERAPY PHYSICAL THERAPY EVALUATION HIGH COMPLEX 45 MINS Jacob Singleton PA-C [address] [place] [address] [facility] [place] [address] [place] [address] Referral IDStatusReasonStwhitney DateExpiration DateVisits RequestedVisits [id number] Review Auto-Generated Referral Additional Source Comments Care Teams (unrecognized sec tion and content) Team Status: Inactive Member Role Status Dates Danielle Hernandez MD Primary Care Provider Active Harlan Weldon ProviderActiveSojesus Booker MD RESActive Team Status: Active Member Role Status Dates Danielle Hernandez MD Primary Care Provider Active Team MemberRelationshipSpecialtyStart DateEnd Date Danielle Hernandez MD PCP - GeneralFamily Nffzcgaq39/16/15Team MemberRelationshipSpecialtyStart Date End Date Danielle Hernandez MD PCP - GeneralFamily Kkluoewy38/16/15Team MemberRelationshipSpecialtyStart Date End Date Danielle Hernandez MD PCP - GeneralFamily Jltxiumw08/16/15Team MemberRelationshipSpecialtyStart Date End Date Danielle Hernandez MD PCP - Generalmily Osoltnmd27/16/15Team MemberRelationshipSpecialtyStart Date End Date Danielle Hernandez MD PCP - Generalmily Whkgmopl54/16/15Team MemberRelationshipSpecialtyStart Date End Date Danielle Hernandez MD PCP - Generalmily Jukcyqkj92/16/15Team MemberRelationshipSpecialtyStart Date End Date Danielle Hernandez MD PCP - GeneralFamily Eczwepvz23/16/15Team MemberRelationshipSpecialtyStart Date End Date Danielle Hernandez MD PCP - GeneralFamily Fbnjoqod52/16/15Team MemberRelationshipSpecialtyStart Date End Date Danielle Hernandez MD PCP - GeneralFamily Hzfspyhs82/16/15Team MemberRelationshipSpecialtyStart Date End Date Danielle Hernandez MD PCP - GeneralFamily Dpnnxlcm01/16/15Team MemberRelationshipSpecialtyStart Date End Date Danielle Hernandez MD PCP - [facility]08/19/15Team MemberRelationshipSpecialtyStart Date End Date Danielle Hernandez MD PCP - [facility]08/19/15Te MemberRelationshipSpecialtyStart Date End Date Danielle Hernandez MD [address] [place] [address] PCP - [facility]03/26/25Te MemberRelationshipSpecialtyStart DateEnd Date Danielle Hernandez MD [address] [place] [address] PCP - [facility]03/26/25Team MemberRelationshipSpecialtyStart DateEnd Date Danielle Hernandez MD [address] [place] [address] PCP - [facility]03/26/25 Goals (unrecognized section and content) Goals may be documented in a n alternate section (unrecognized sect ion and content) No Status Records FoundNo Status Records FoundNo Status Records FoundNo Status Records FoundNo Status Records FoundNo Status Records FoundNo Status Records Found INFORMATION SOURCE (unrecogn ized section and content) DATE CREATED AUTHOR 05/16/2022 [facility] DATE CREATED AUTHOR AUTHOR'S ORGANIZ ATION 08/22/2022 [facility] DATE CREATED AUTHOR AUTHOR'S ORGANIZ ATION 09/05/2022 [facility] DATE CREATED AUTHOR AUTHOR'S ORGANIZ ATION 09/29/2022 [facility] DATE CREATED AUTHOR AUTHOR'S ORGANIZ ATION 11/07/2022 [facility] DATE CREATED AUTHOR AUTHOR'S ORGANIZ ATION 12/17/2022 [facility] DATE CREATED AUTHOR AUTHOR'S ORGANIZ ATION 03/29/2025 [facility] EPIC Source Comments (unrecognize d section and content) In the event this informatio n is protected by the Federal Confidentiality of Alcohol and Drug Abuse Patient Records regulations: The Federal rules restrict any use of the information to criminally investigate or prosecute any alcohol or drug abuse patient.[facility] CenterIn the event this information is protected by the Federal Confidentiality of Alcohol and Drug Abuse Patient Records regulations: The Federal rules restrict any use of the information to criminally investigate or prosecute any alcohol or drug abuse patient.[facility] CenterIn the event this information is protected by the Federal Confidentiality of Alcohol and Drug Abuse Patient Records regulations: The Federal rules restrict any use of the information to criminally investigate or prosecute any alcohol or drug abuse patient.[facility] CenterIn the event this information is protected by the Federal Confidentiality of Alcohol and Drug Abuse Patient Records regulations: The Federal rules restrict any use of the information to criminally investigate or prosecute any alcohol or drug abuse patient.[facility] the event this information is protected by the Federal Confidentiality of Alcohol and Drug Abuse Patient Records regulations: The Federal rules restrict any use of the information to criminally investigate or prosecute any alcohol or drug abuse patient.[facility] CenterIn the event this information is protected by the Federal Confidentiality of Alcohol and Drug Abuse Patient Records regulations: The Federal rules restrict any use of the information to criminally investigate or prosecute any alcohol or drug abuse patient.[facility] CenterIn the event this information is protected by the Federal Confidentiality of Alcohol and Drug Abuse Patient Records regulations: The Federal rules restrict any use of the information to criminally investigate or prosecute any alcohol or drug abuse patient.[facility] CenterIn the event this information is protected by the Federal Confidentiality of Alcohol and Drug Abuse Patient Records regulations: The Federal rules restrict any use of the information to criminally investigate or prosecute any alcohol or drug abuse patient.[facility] CenterIn the event this information is protected by the Federal Confidentiality of Alcohol and Drug Abuse Patient Records regulations: The Federal rules restrict any use of the information to criminally investigate or prosecute any alcohol or drug abuse patient.[facility] CenterIn the event this information is protected by the Federal Confidentiality of Alcohol and Drug Abuse Patient Records regulations: The Federal rules restrict any use of the information to criminally investigate or prosecute any alcohol or drug abuse patient.[facility] CenterIn the event this information is protected by the Federal Confidentiality of Alcohol and Drug Abuse Patient Records regulations: The Federal rules restrict any use of the information to criminally investigate or prosecute any alcohol or drug abuse patient.[facility] CenterIn the event this information is protected by the Federal Confidentiality of Alcohol and Drug Abuse Patient Records regulations: The Federal rules restrict any use of the information to criminally investigate or prosecute any alcohol or drug abuse patient.[facility] CenterIn the event this information is protected by the Federal Confidentiality of Alcohol and Drug Abuse Patient Records regulations: The Federal rules restrict any use of the information to criminally investigate or prosecute any alcohol or drug abuse patient.[facility] CenterIn the event this information is protected by the Federal Confidentiality of Alcohol and Drug Abuse Patient Records regulations: The Federal rules restrict any use of the information to criminally investigate or prosecute any alcohol or drug abuse patient.[facility] CenterIn the event this information is protected by the Federal Confidentiality of Alcohol and Drug Abuse Patient Records regulations: The Federal rules restrict any use of the information to criminally investigate or prosecute any alcohol or drug abuse patient.[facility] CenterIn the event this information is protected by the Federal Confidentiality of Alcohol and Drug Abuse Patient Records regulations: The Federal rules restrict any use of the information to criminally investigate or prosecute any alcohol or drug abuse patient.[facility] Reason for Visit (unrecogniz ed section and content) ReasonCommentsRadiology XRReasonCommentsEstablished PatientFollow UpReason CommentsNewPainReasonCommentsQuestionReasonCommentsPreOp CallTo address patient questionsReasonCommentsAppointmentReasonCommentsPatient QuestionReasonComments Post OpReasonCommentsRadiology XRSpecialtyDiagnoses / ProceduresReferred By ContactReferred To ContactXR IMAGING Diagnoses Status post right hip replacement Procedures XR HIP GENERAL 3V PELV/AP/LAT RIGHT RADEX HIP UNILATERAL WITH PELVIS 2-3 VIEWS Jacob Singleton PA-C [address] [place] [address] [place] [address] Referral IDStatusReasonStart DateExpiration DateVisits RequestedVisits [id number] Auto-Generated Referral /[id number] Gen RMPSpecialtyDiagnoses / Procedures Referred By ContactReferred To ContactXR IMAGING Diagnoses Status post right hip replacement Procedures XR HIP GENERAL 3V PELV/AP/LAT RIGHT RADEX HIP UNILATERAL WITH PELVIS 2-[place] [address] [place] [address] [place] [address] Referral IDStatusReasonStart DateExpiration DateVisits RequestedVisits [id number] Auto-Generated Referral /[id number] IDStatusReasonStart DateExpiration DateVisits RequestedVisits [id number] Auto-Generated Referral [id number] FOR RECORDS PERTAINING TO [...] BE BASED ON THE PRIMARY CLINICAL RECORDS. [employer] [facility]. provides no warranty or guarantee of the accuracy or completeness of information in this document.
--- NOTE | 2025-10-02 18:04 | XR_ITS ---
The [address] [address] Patient Name: TOM ROY MRN: [id number] date: 1965 Sex: M Assigned Patient Location: ED.MAIN Current Patient Location: ED.MAIN Accession/Order Number: [id number] Exam Date: 10/02/2025 18:22 Report Date: 10/02/2025 18:52 At the request of: ALBERTO VIGIL MD Procedure: XR hand RT min 3V XR hand RT min 3V 10/02/2025 6:26 PM SIGNS AND SYMPTOMS: ^Puncture wound PROTOCOL: Frontal, lateral, and oblique radiographs of the right hand COMPARISON: None FINDINGS: There is narrowing of the first carpal metacarpal junction. There is mild narrowing of the distal interphalangeal joints. There is no fracture or dislocation. There is mild diffuse soft tissue swelling. No abnormal radiopaque foreign body. XR/XR hand RT min 3V IMPRESSION: No fracture. There is mild diffuse soft tissue swelling. No abnormal radiopaque foreign body. Impression dictated by: Rich Hendricks M.D. 10/02/2025 6:52 PM Dictation Location: [place] [address] Electronically authenticated by: [id number] Y Date: 10/02/2025 18:52
--- NOTE | 2025-10-02 18:05 | ED.GENADUL1 ---
HPI HPI - General Adult General Chief complaint: Skin/Abscess/Foreign Body Stated complaint: Wound R Hand Time Seen by Provider: 10/02/25 18:00 Source: patient Mode of arrival: walk-in History of Present Illness HPI narrative: 60-year-old male presented to the emergency department for redness and swelling in his right hand. He sustained a puncture wound to the palm of his hand on a metal tool yesterday. He had a tetanus shot earlier in the year. He saw his PCP who directed him here. No purulent drainage or fever and no other injury was sustained. Related Data Home Medications ?Medication ?Instructions ?Recorded ?Confirmed apixaban 5 mg tablet (Eliquis) 5 mg PO 04/03/24 hydrochlorothiazide 25 mg tablet 25 mg PO DAILY 04/03/24 03/14/25 lisinopril 40 mg tablet 40 mg PO DAILY 04/03/24 03/14/25 metoprolol succinate 25 mg 25 mg PO DAILY 04/03/24 03/14/25 tablet,extended release 24 hr Previous Rx's ?Medication ?Instructions ?Recorded erythromycin 5 mg/gram (0.5 %) eye 0.5 inch ophthalmic (eye) Q4H #50 03/25/25 ointment grams Allergies Allergy/AdvReac Type Severity Reaction Status Date / Time No Known Drug Allergies Allergy Verified 03/25/25 14:35 Opioid HPI Opioid Management Most Recent Opioid Data: Last Pain Scale 8 03/13/25, 23:36 Review of Systems ROS Narrative A ten point review of systems is negative except as noted above. PFSH PFSH Social History Little interest or pleasure in doing things: not at all Feeling down, depressed, or hopeless: not at all Exam Narrative Exam Narrative: Nurses note and vital signs reviewed General:The patient appears well and in no apparent distress.Patient is resting comfortably on cart. Skin:Warm, dry, no pallor noted.There is no rash noted. Head:Normocephalic, atraumatic Eye: Normal conjunctiva, no drainage Ears, Nose, Mouth, and Throat: oral mucosa is moist. Nares patent. Cardiovascular:Regular Rate and Rhythm Respiratory:Patient is in no distress, no accessory muscle use, lungs are clear to auscultation, no wheezing, rales or rhonchi Back:non-tender GI: Soft and nontender Musculoskeletal: The right hand is examined. There is a puncture wound at the palm of the hand. No purulent drainage. Fingers have good range of motion. There is erythema on the palm in the area of lymphangitis that goes to the wrist. Neurological:A&O, normal speech Psychiatric:Cooperative Constitutional Vital Signs, click to edit/add: Last Vital Signs Temp 98.6 F 10/02/25 16:08 Pulse 66 10/02/25 16:08 Resp 16 10/02/25 16:08 BP 118/70 10/02/25 16:08 Pulse Ox 99 10/02/25 16:08 O2 Del Method Room Air 10/02/25 16:08 Course Vital Signs Vital signs: Vital Signs Temperature 98.6 F 10/02/25 16:08 Pulse Rate 66 10/02/25 16:08 Respiratory Rate 16 10/02/25 16:08 Blood Pressure 118/70 10/02/25 16:08 Pulse Oximetry 99 10/02/25 16:08 Oxygen Delivery Method Room Air 10/02/25 16:08 Temperature 98.6 F 10/02/25 16:08 Pulse Rate 66 10/02/25 16:08 Respiratory Rate 16 10/02/25 16:08 Blood Pressure 118/70 10/02/25 16:08 Pulse Oximetry 99 10/02/25 16:08 Oxygen Delivery Method Room Air 10/02/25 16:08 Medical Decision Making [facility] Narrative Medical decision making narrative: The patient has sustained a puncture wound. Tetanus status is up-to-date. He was given IV Ancef and blood work is pending as well as the x-ray. The patient is signed out to Dr. Harris at change of shift. Differential Diagnosis Differential Diagnosis: Puncture wound, cellulitis Discharge Plan Discharge Patient Disposition: Still a Patient
[2025-10-02] MEDS: CEFAZOLIN SODIUM/DEXTROSE,ISO 1 GM/50 ML PREMIX IV (18:42)
[2025-10-02 18:44] LABS: Hematocrit 48.2 % (42.0-54.0); Hemoglobin 16.4 g/dL (14.0-18.0); Immature Granulocytes Abs Auto 0.05 10^3/uL (0.00-0.03); Immature Granulocytes Pct Auto 0.4 % (0.0-0.5); Lymphocytes Absolute Auto 2.1 10^3/uL (1.2-3.8); Mean Corpuscular HGB Conc 34.0 g/dL (29.9-35.2); Mean Corpuscular Hemoglobin 29.4 pg (25.9-34.0); Mean Corpuscular Volume 86.5 fL (80.0-94.0); Platelet Count 179 10^3/uL (150-450); Red Blood Count 5.57 10^6/uL (4.70-6.10); White Blood Count 12.0 10^3/uL (4.0-11.0)
--- NOTE | 2025-10-02 19:05 | PC.NURSE ---
this patient awake and alert sitting upright on the bed, continuing iv atb and veterinary laboratory technician just redraw. this patient aware we have in wait for these results to come back
[2025-10-02 19:12] LABS: Anion Gap 10.5; Blood Urea Nitrogen 19.0 mg/dL (7.0-18.0); Calcium 8.8 mg/dL (8.5-10.1); Carbon Dioxide 28.9 mmol/L (21.0-32.0); Chloride 101 mmol/L (98-107); Estimated GFR (African America >60 (>=60 mL/min/1.73m^2); Estimated GFR (Non-African Ame >60 (>=60 mL/min/1.73m^2); Glucose 105 mg/dL (74-106); Potassium 3.4 mmol/L (3.5-5.1); Sodium 137 mmol/L (136-145)
--- NOTE | 2025-10-02 19:13 | ED.SKABFB1 ---
HPI - Skin/Abscess/Foreign Bdy General Chief complaint: Skin/Abscess/Foreign Body Stated complaint: Wound R Hand Time Seen by Provider: 10/02/25 18:00 Source: patient Mode of arrival: walk-in History of Present Illness HPI narrative: This 60-year-old male was signed out to me at shift change. He presents for evaluation of a puncture wound with redness and swelling to his right hand. He states he punctured his hand accidentally with a screwdriver like device yesterday. It is now red and swollen with a lymphangitic streak up his right arm. His white count is mildly elevated at 12. His tetanus is up-to-date. X-ray does not show any foreign body, fracture or gas in the tissue. He was medicated with IV Ancef in the emergency department. He request to be discharged home. He will be discharged home with a prescription for Augmentin with recommendation for warm soaks 3-4 times a day and absent salt water and return to the emergency department for worsening symptoms or any concerns. Related Data Home Medications ?Medication ?Instructions ?Recorded ?Confirmed apixaban 5 mg tablet (Eliquis) 5 mg PO 04/03/24 hydrochlorothiazide 25 mg tablet 25 mg PO DAILY 04/03/24 03/14/25 lisinopril 40 mg tablet 40 mg PO DAILY 04/03/24 03/14/25 metoprolol succinate 25 mg 25 mg PO DAILY 04/03/24 03/14/25 tablet,extended release 24 hr Previous Rx's ?Medication ?Instructions ?Recorded erythromycin 5 mg/gram (0.5 %) eye 0.5 inch ophthalmic (eye) Q4H #50 03/25/25 ointment grams Allergies Allergy/AdvReac Type Severity Reaction Status Date / Time No Known Drug Allergies Allergy Verified 03/25/25 14:35 PFSH PFSH Social History Little interest or pleasure in doing things: not at all Feeling down, depressed, or hopeless: not at all Exam Constitutional Vital Signs, click to edit/add: Last Vital Signs Temp 98.7 F 10/02/25 19:44 Pulse 67 10/02/25 19:44 Resp 18 10/02/25 19:44 BP 121/74 10/02/25 19:44 Pulse Ox 96 10/02/25 19:44 O2 Del Method Room Air 10/02/25 16:08 Course Vital Signs Vital signs: Vital Signs Temperature 98.6 F 10/02/25 16:08 Pulse Rate 66 10/02/25 16:08 Respiratory Rate 16 10/02/25 16:08 Blood Pressure 118/70 10/02/25 16:08 Pulse Oximetry 99 10/02/25 16:08 Oxygen Delivery Method Room Air 10/02/25 16:08 Temperature 98.7 F 10/02/25 19:44 Pulse Rate 67 10/02/25 19:44 Respiratory Rate 18 10/02/25 19:44 Blood Pressure 121/74 10/02/25 19:44 Pulse Oximetry 96 10/02/25 19:44 Oxygen Delivery Method Room Air 10/02/25 16:08 MDM - Skin/Abscess/Foreign Bdy Lab Data Labs: Lab Results 10/02/25 10/02/25 Range/Units 18:30 18:58 WBC 12.0 H (4.0-11.0) 10^3/uL RBC 5.57 (4.70-6.10) 10^6/uL Hgb 16.4 (14.0-18.0) g/dL Hct 48.2 (42.0-54.0) % MCV 86.5 (80.0-94.0) fL MCH 29.4 (25.9-34.0) pg MCHC 34.0 (29.9-35.2) g/dL RDW 13.5 (11.0-15.0) % Plt Count 179 (150-450) 10^3/uL MPV 10.3 (9.5-13.5) fL Neut % (Auto) 71.3 (43.0-75.0) % Lymph % (Auto) 17.1 L (20.5-60.0) % [place] % (Auto) 9.1 (1.7-12.0) % Eos % (Auto) 1.6 (0.9-7.0) % Baso % (Auto) 0.5 (0.2-2.0) % Neut # (Auto) 8.6 H (1.4-6.5) 10^3/uL Lymph # (Auto) 2.1 (1.2-3.8) 10^3/uL [place] # (Auto) 1.1 H (0.3-0.8) 10^3/uL Eos # (Auto) 0.2 (0.0-0.7) 10^3/uL Baso # (Auto) 0.1 (0.0-0.1) 10^3/uL Abs Immat Gran (auto) 0.05 H (0.00-0.03) 10^3/uL Imm/Tot Granulo (auto) 0.4 (0.0-0.5) % Sodium 137 (136-145) mmol/L Potassium 3.4 L (3.5-5.1) mmol/L Chloride 101 (98-107) mmol/L Carbon Dioxide 28.9 (21.0-32.0) mmol/L Anion Gap 10.5 BUN 19.0 H (7.0-18.0) mg/dL Creatinine 0.99 (0.70-1.30) mg/dL Est GFR ( Amer) >60 (>=60 mL/min/1.73m^2) Est GFR (Non-Af Amer) >60 (>=60 mL/min/1.73m^2) BUN/Creatinine Ratio 19.2 Glucose 105 (74-106) mg/dL Calcium 8.8 (8.5-10.1) mg/dL Discharge Plan Discharge Chief Complaint: Skin/Abscess/Foreign Body Clinical Impression: Puncture wound, Cellulitis of hand, right Patient Disposition: Home, Self-Care Time of Disposition Decision: 19:14 Condition: Good Prescriptions / Home Meds: No Action erythromycin 5 mg/gram (0.5 %) ointment 0.5 inch ophthalmic (eye) Q4H Qty: 50 0RF Rx Instructions: apply to the rt eye hydrochlorothiazide 25 mg tablet 25 mg PO DAILY metoprolol succinate 25 mg tablet extended release 24 hr 25 mg PO DAILY lisinopril 40 mg tablet 40 mg PO DAILY Eliquis 5 mg tablet 5 mg PO Print Language: Macedonian Instructions: Puncture Wound (ED), Cellulitis (ED) Additional Instructions: Please use antibiotics as directed until gone, soak your hand in warm Epsom salt water 3-4 times a day for at least 20 to 30 minutes each time. Return to the emergency department for worsening pain, swelling, redness, fevers, chills, drainage from the hand or any concerns. Referrals: Benjy Sinha MD [Primary Care Provider, Family Practice] - 1 week Discharge Date/Time: 10/02/25 19:52
[2025-10-02] MEDS: AMOXICILLIN/POT CLAV 875-125 MG TABLET PO (19:43)
[2025-10-02 19:44] VITALS: BP 121/74; PULSE 67; TEMP 37.1; O2SAT 96
--- NOTE | 2025-10-02 19:52 | PC.NURSE ---
i gave this patient verbal and written discharge along with 1 Rx and 1 take home medication and this patient voices yes to understanding these. at time of discharge this patient voices no concerns needs and shows no signs of distress
== END 2025-10-02 19:52 | disposition home or self-care (01) ==
PROVIDERS: Emergency Medicine; Emergency Provider Emergency Medicine; PCP Family Medicine
DX: S61.431A Puncture wound without foreign body of right hand, initial encounter (principal); L03.113 Cellulitis of right upper limb; W27.0XXA Contact with workbench tool, initial encounter
CPT/HCPCS: 36415; 73130; 80048; 85025; 96365; 99284; 99285; J0690